=== PATIENT | male | born 1935 | race Caucasian/White ===

== ENCOUNTER → 2017-11-10 09:04 | Outpatient (CLI) | payer MEDICARE, SELFPAY ==
--- NOTE | 2017-11-10 09:24 | RAD_ITS ---
STUDY: X-RAY CHEST REASON FOR EXAM: Male, 82 years old. Pre-op chest x-ray, no shortness of breath and dyspnea. TECHNIQUE: PA and lateral views of the chest. COMPARISON: 08/15/2017 FINDINGS: Stable elevation right hemidiaphragm with compression of the basilar parenchyma, pleural thickening along the left anterior pleura/fissure. The lungs are clear and expanded. There is no demonstrated pleural abnormality. Sternal cerclage wires and vascular clips are present from a prior sternotomy and coronary artery bypass graft procedure (CABG). Normal mediastinum and alaina. Normal visualized pulmonary arteries. There is atherosclerotic calcification of the aortic arch with tortuosity. There is demineralization of the osseous structures. Normal visualized ribs, clavicles, and shoulders. There is no demonstrated abnormality of the visualized soft tissue structures of the upper abdomen. RAD/Chest PA and Lateral IMPRESSION: Postsurgical changes with stable elevation of the right hemidiaphragm and compression of basilar parenchyma. Osteoporosis, arteriosclerosis. Electronically Signed: Ashley Dalton MD at 6:57 EDT , Service support ,
[2017-11-10 10:29] LABS: International Normalized Ratio 2.2; Prothrombin Time (Protime)PT. 24.2 SECONDS (11.7-14.9)
[2017-11-10 10:57] LABS: Anion Gap 7 (5-15); BUN 30 mg/dL (7-18); BUN/Creat Ratio 17.1 RATIO (10-20); Calcium,Total 8.9 mg/dL (8.5-10.1); Chloride 103 mmol/L (98-107); Creatinine, Serum 1.75 mg/dL (0.70-1.30); EST Glomerular Filtration Rate 40 mL/min (>60); Est Glom Filt Rate - Afr Amer 48 mL/min (>60); Glucose 93 mg/dL (74-106); Potassium 3.9 mmol/L (3.5-5.1); Sodium Level 140 mmol/L (136-145)
== END ==
PROVIDERS: Family Provider Family Medicine; PCP Family Medicine; Visit Provider Nurse Practitioner Family
DX: I48.91 Unspecified atrial fibrillation (principal); I25.10 Atherosclerotic heart disease of native coronary artery without angina pectoris; R06.09 Other forms of dyspnea; I10 Essential (primary) hypertension; Z95.1 Presence of aortocoronary bypass graft
CPT/HCPCS: 36415; 71046; 80048; 85610

== ENCOUNTER → 2017-11-15 10:44 | Day surgery (SDC) | payer MEDICARE, SELFPAY ==
[2017-11-12 08:48] VITALS: BMI 34.7
--- NOTE | 2017-11-15 12:17 | PCM.OP.BLANK ---
Operative Report Date of Procedure: 11/15/17 Elective DC cardioversion. Indication: Persistent symptomatic atrial fibrillation. Procedure: Patient is an 82-year-old man with a history of symptomatic atrial fibrillation who has been anticoagulated with Xarelto for at least 4 weeks. The patient was brought to the cardiac catheterization noninvasive lab. After informed consent was obtained anterior posterior pads were applied. The patient was seen and evaluated by Dr. Allen of the critical care division. 200 J of synchronized DC cardioversion energy were applied after patient was administered 40 mg of intravenous propofol. The patient probably converted to sinus rhythm. Postoperative EKG confirmed the same. Patient tolerated the procedure well. Conclusion: Successful DC cardioversion to sinus rhythm from atrial fibrillation. Plan: Patient to continue on amiodarone, metoprolol, and Xarelto. Follow-up EKG in 1 week in my office.
--- NOTE | 2017-11-15 12:45 | PCM.OP.BLANK ---
Operative Report Date of Procedure: 11/15/17 CONSCIOUS SEDATION REPORT DATE OF SERVICE: November 15, 2017 BRIEF HISTORY OF PRESENT ILLNESS: The patient is an 82-year-old male who presented to [facility] for an elective outpatient cardioversion due to underlying atrial fibrillation. The patient's most recent surface echocardiogram revealed ejection fraction of 55%. The patient has undergone previous cardioversions, most recently as August 2016. The patient is currently anticoagulated on Xarelto. He denies a previous history of anesthetic complication and has no known drug allergies. The patient denies a history of obstructive sleep apnea or COPD. PHYSICAL EXAMINATION: VITAL SIGNS: Reviewed and were acceptable. GENERAL: The patient is a male, in no apparent distress, speaking in full sentences. HEENT: Normocephalic, atraumatic. Mucous membranes are moist and pink. Good mouth opening noted. Trachea is midline. Good neck mobility. CHEST: S1, S2 irregularly irregular. No murmurs, rubs or gallops were noted. LUNGS: Clear to auscultation bilaterally without appreciable wheezes, rales or rhonchi. ABDOMEN: Soft, nontender, nondistended. Positive bowel sounds. EXTREMITIES: There is no clubbing, cyanosis or edema. ASA Class: II DESCRIPTION OF PROCEDURE: After confirmation of informed consent, the patient's anesthesia plan was reviewed in detail. Propofol was chosen. Risks and benefits were reviewed and the patient agreed to proceed. At 1209, the patient was given 40 mg of propofol. The patient achieved an appropriate level of sedation and was given a 200 joule synchronized cardioversion by Dr. Russ at the bedside. This was successful in achieving normal sinus rhythm. The patient was monitored until 1219, at which time he reached his baseline mental status and function. The patient tolerated the procedure well. COMPLICATIONS: None ESTIMATED BLOOD LOSS: None RECOMMENDATIONS: Okay to recover in usual fashion. Code Visit 9xxxx: Other Procedure See Report
== END ==
PROVIDERS: Family Provider Family Medicine; PCP Family Medicine; Visit Provider Internal Medicine Cardiovascular Disease
DX: I48.0 Paroxysmal atrial fibrillation (principal); I25.10 Atherosclerotic heart disease of native coronary artery without angina pectoris; Z95.1 Presence of aortocoronary bypass graft; I10 Essential (primary) hypertension; R06.09 Other forms of dyspnea; E78.00 Pure hypercholesterolemia, unspecified
CPT/HCPCS: 92960; 93005; J7030

== ENCOUNTER → 2017-11-26 13:18 | Outpatient (CLI) | payer MEDICARE, SELFPAY ==
[2017-11-26 14:55] LABS: Anion Gap 10 (5-15); BUN 31 mg/dL (7-18); BUN/Creat Ratio 14.6 RATIO (10-20); Calcium,Total 8.2 mg/dL (8.5-10.1); Chloride 105 mmol/L (98-107); Creatinine, Serum 2.12 mg/dL (0.70-1.30); EST Glomerular Filtration Rate 32 mL/min (>60); Est Glom Filt Rate - Afr Amer 39 mL/min (>60); Glucose 127 mg/dL (74-106); Sodium Level 142 mmol/L (136-145)
== END ==
PROVIDERS: Family Provider Family Medicine; PCP Family Medicine; Visit Provider Internal Medicine Cardiovascular Disease
DX: I50.32 Chronic diastolic (congestive) heart failure (principal); Z79.899 Other long term (current) drug therapy
CPT/HCPCS: 36415; 80048

== ENCOUNTER → 2017-12-20 09:22 | Outpatient (CLI) | payer MEDICARE, SELFPAY ==
[2017-12-20 10:42] LABS: AST(SGOT) 20 U/L (15-37); Alanine Aminotransfer ALT/SGPT 25 U/L (16-61); Alkaline Phosphatase 109 U/L (45-117); Anion Gap 7 (5-15); BUN 28 mg/dL (7-18); BUN/Creat Ratio 13.9 RATIO (10-20); Bilirubin, Direct 0.23 mg/dL (0.00-0.30); Calcium,Total 8.7 mg/dL (8.5-10.1); Chloride 106 mmol/L (98-107); Cholesterol 130 mg/dL (200); Creatinine, Serum 2.02 mg/dL (0.70-1.30); EST Glomerular Filtration Rate 34 mL/min (>60); Est Glom Filt Rate - Afr Amer 41 mL/min (>60); Globulin 3.4 g/dL (2.2-4.2); Glucose 138 mg/dL (74-106); High Density Lipoprotein 39 mg/dL; Potassium 4.5 mmol/L (3.5-5.1); Protein, Total 7.4 g/dL (6.4-8.2); Sodium Level 140 mmol/L (136-145); Triglycerides 108 mg/dL; Very Low Density Lipoprotein 22 mg/dL (5-40)
== END ==
PROVIDERS: Nurse Practitioner Family; Family Provider Family Medicine; PCP Family Medicine; Visit Provider Internal Medicine Cardiovascular Disease
DX: I25.10 Atherosclerotic heart disease of native coronary artery without angina pectoris (principal); I48.0 Paroxysmal atrial fibrillation; I50.32 Chronic diastolic (congestive) heart failure; E78.5 Hyperlipidemia, unspecified; I10 Essential (primary) hypertension
CPT/HCPCS: 36415; 80048; 80061; 80076

== ENCOUNTER 2018-03-13 18:37 | Emergency (ER) | payer MEDICARE, SELFPAY ==
[2018-03-13 18:38] VITALS: BP 121/64; PULSE 64; RESP 17; TEMP 36.8; O2SAT 97; BMI 35.2
[2018-03-13 19:51] LABS: Absolute Lymphocyte Count 1.17 X10^3/ul (0.83-4.51); Absolute Neutrophil Count 3.9 X10^3/uL (2.0-7.7); Basophil# 0.01 X10^3/uL; Basophil% 0.2 % (0-1); Eosinophil# 0.05 X10^3/uL; Eosinophils% 0.9 % (0-5); Hematocrit 36.3 % (40-54); Lymphocyte # 1.17 X10^3/ul (4.0); Lymphocyte % 20.7 % (19-41); Mean Corp Hgb Conc 33.1 g/gl (32-36); Mean Corpuscular Hgb 31.4 pg (27.0-32.0); Mean Platelet Vol. 9.2 fl (6.2-12.0); Monocyte# 0.55 X10^3/uL; Monocyte% 9.7 % (0-10); Neutrophil # 3.86 X10^3/uL (2.7-7.7); Neutrophil % 68.3 % (47-70); POSITIVE COUNT NO; POSITIVE DIFFERENTIAL NO; POSITIVE MORPHOLOGY NO; Platelet Count 128 K/mm3 (150-450); RBC Distribution Width CV 14.4 % (11.6-14.6); RBC Distribution Width SD 49.4 fl (35.1-43.9); Red Blood Count 3.82 M/mm3 (4.6-6.2); White Blood Count 5.7 K/mm3 (4.4-11.0)
--- NOTE | 2018-03-13 20:22 | ED.VISSUMM ---
- ER Visit Summary Date of Service: 03/13/18 Chief Complaint: Right lower extremity cellulitis History of Present Illness: The patient is a 82 M currently on Xarelto and aspirin. Patient states he was working on his hands and knees 2 weeks ago. He developed swelling, bruising, and redness to the right lower extremity. He was seen at his PCPs office last week. Labs and a venous ultrasound were obtained. Patient presents with continued symptoms. He does have erythema over the anterior dominguez that is warm to the touch. Physical Examination: Vital signs unremarkable. Patient sitting upright in bed no acute distress. He is nontoxic appearing. Heart is regular. Lungs are clear. Abdomen is soft nontender. Right lower external examination was ecchymosis on the medial right thigh and on the medial lower leg. Thigh is not tense. He has 3+ edema. There is erythema and warmth over the right anterior dominguez consistent with cellulitis. 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 His hemoglobin is 12.0 and his platelet count is 128,000. This is compared to labs on March 08 at [facility] where his hemoglobin was 12.7 and his platelet count was 130,000. Emergency Department Course and Treatment: At this time patient be treated with a course of Keflex for skin infection. He has in a follow-up appointment scheduled this coming week. Treatment Plan: [] Disposition: Discharge Impression: Cellulitis right lower extremity This note was generated with [employer] dictation software. It may contain incorrect words, spelling, and punctuation that were not noted in review of the chart prior to signing ED Disposition - Plan for ED Patient: Chief Complaint: Cellulitis Referrals: Jose C Shine III, MD [Primary Care Provider] -
--- NOTE | 2018-03-13 20:24 | ED.DEP ---
ED Disposition - Plan for ED Patient: Disposition: Home or Assisted Living Chief Complaint: Cellulitis Instructions: ED Staph Infec Abx Tx Only Prescriptions: Cephalexin [Keflex] 500 mg PO Q6 #40 capsule Referrals: Jose C Shine III, MD [Primary Care Provider] - Keep George appointment
[2018-03-13 20:47] VITALS: BP 135/59; PULSE 48; RESP 16; O2SAT 97
[2018-03-13] MEDS: Cephalexin 250 MG Capsule 500 MG PO (20:50)
[2018-03-13 20:52] VITALS: BP 135/59; PULSE 48; RESP 16; O2SAT 97
== END 2018-03-13 20:53 | disposition home or self-care (01) ==
PROVIDERS: Emergency Provider Emergency Medicine; Family Provider Family Medicine; PCP Family Medicine
DX: L03.115 Cellulitis of right lower limb (principal); I10 Essential (primary) hypertension; E78.00 Pure hypercholesterolemia, unspecified; I25.10 Atherosclerotic heart disease of native coronary artery without angina pectoris; Z95.1 Presence of aortocoronary bypass graft; D69.3 Immune thrombocytopenic purpura
CPT/HCPCS: 85025; 99284; A4216

== ENCOUNTER → 2018-06-21 09:08 | Outpatient (CLI) | payer MEDICARE, SELFPAY ==
[2018-06-21 10:49] LABS: Absolute Lymphocyte Count 1.42 X10^3/ul (0.83-4.51); Absolute Neutrophil Count 4.6 X10^3/uL (2.0-7.7); Basophil# 0.01 X10^3/uL; Basophil% 0.2 % (0-1); Eosinophil# 0.07 X10^3/uL; Eosinophils% 1.1 % (0-5); Hematocrit 43.4 % (40-54); Hemoglobin 14.2 g/dl (13.0-16.5); Lymphocyte # 1.42 X10^3/ul (4.0); Lymphocyte % 21.7 % (19-41); Mean Corp Hgb Conc 32.7 g/gl (32-36); Mean Corpuscular Hgb 31.1 pg (27.0-32.0); Mean Platelet Vol. 9.8 fl (6.2-12.0); Monocyte# 0.44 X10^3/uL; Monocyte% 6.7 % (0-10); Neutrophil % 70.1 % (47-70); POSITIVE COUNT NO; POSITIVE DIFFERENTIAL NO; POSITIVE MORPHOLOGY NO; Platelet Count 141 K/mm3 (150-450); RBC Distribution Width CV 14.5 % (11.6-14.6); RBC Distribution Width SD 48.4 fl (35.1-43.9); Red Blood Count 4.57 M/mm3 (4.6-6.2); White Blood Count 6.6 K/mm3 (4.4-11.0)
[2018-06-21 11:10] LABS: AST(SGOT) 23 U/L (15-37); Alanine Aminotransfer ALT/SGPT 30 U/L (16-61); Albumin, Serum 3.9 g/dL (3.2-5.0); Alkaline Phosphatase 110 U/L (45-117); Bilirubin, Direct 0.24 mg/dL (0.00-0.30); Cholesterol 140 mg/dL (200); Globulin 3.2 g/dL (2.2-4.2); High Density Lipoprotein 38 mg/dL; Protein, Total 7.1 g/dL (6.4-8.2); Triglycerides 183 mg/dL; Very Low Density Lipoprotein 37 mg/dL (5-40)
[2018-06-21 11:17] LABS: BNP,B-Type NATRIURETIC PEPTIDE 283.2 pg/mL (0-100)
[2018-06-21 11:29] LABS: Anion Gap 7 (5-15); BUN 25 mg/dL (7-18); BUN/Creat Ratio 12.4 RATIO (10-20); Calcium,Total 8.5 mg/dL (8.5-10.1); Chloride 107 mmol/L (98-107); Creatinine, Serum 2.02 mg/dL (0.70-1.30); EST Glomerular Filtration Rate 34 mL/min (>60); Est Glom Filt Rate - Afr Amer 41 mL/min (>60); Glucose 93 mg/dL (74-106); Potassium 4.5 mmol/L (3.5-5.1); Sodium Level 142 mmol/L (136-145); T4 Free Direct 1.13 ng/dL (0.76-1.46); Thyroid Stim Hormone (TSH) 2.64 uIU/mL (0.358-3.74)
== END ==
PROVIDERS: Nurse Practitioner Family; Family Provider Family Medicine; PCP Family Medicine; Referring Provider Physician Assistant Medical; Visit Provider Physician Assistant Medical
DX: I10 Essential (primary) hypertension (principal); I25.10 Atherosclerotic heart disease of native coronary artery without angina pectoris; I48.0 Paroxysmal atrial fibrillation; R06.00 Dyspnea, unspecified; I50.32 Chronic diastolic (congestive) heart failure; E78.00 Pure hypercholesterolemia, unspecified
CPT/HCPCS: 36415; 80048; 80061; 80076; 83880; 84439; 84443; 85025

== ENCOUNTER → 2018-07-13 06:32 | Outpatient (CLI) | payer MEDICARE, SELFPAY ==
--- NOTE | 2018-07-13 06:33 | ECHOCS_ITS ---
Reason For Study: Abn. EKG Procedure This was a 2D Doppler, Color Flow transthoracic echocardiogram. Exam performed in department. Left Ventricle Normal LV size. Left ventricular systolic function is normal. The estimated ejection fraction is 65 %. Transmitral diastolic flow velocities suggest severe (stage 3) diastolic dysfunction. No regional wall motion abnormalities noted. Right Ventricle Normal RV size. Normal systolic function. Atria The left atrium is moderately enlarged. Normal right atrium. Mitral Valve Normal mitral valve. Mild (1+) eccentric mitral valve insufficiency. Tricuspid Valve Normal tricuspid valve. Mild (1+) tricuspid valve insufficiency. Pulmonary artery systolic pressure is 45 mmHg. Aortic Valve Trisinus/trileaflet aortic valve. Small strand or lambls noted on the aortic valve measuring 0.5cm. Pulmonic Valve Normal pulmonic valve. Great Vessels Normal aortic root. The pulmonary artery is normal size. Normal inferior vena cava. Pericardium/Pleural No pericardial effusion. Medication Diluted definity 2ml given slow IV push to enhance endocardial definition. MMode/2D Measurements & Calculations LVIDd: 4.4 cm IVSd: 1.1 cm Ao root diam: 3.2 cm LVIDs: 2.2 cm LVPWd: 1.1 cm RVDd: 3.7 cm FS: 49.5 % LAV(MOD-bp): 94.6 ml LA A4 area: 28.2 cm2 LA dimension(2D): 5.3 cm LAV(MOD-bp) Indexed: 43.6 ml/m2 LAV(MOD-sp2): 90.3 ml LAV(MOD-sp4): 99.8 ml RA A4 area: 15.2 cm2 Doppler Measurements & Calculations MV E max anoop: 144.5 cm/sec Lat Peak E' Anoop: 11.4 cm/sec Med Peak E' Anoop: 8.9 cm/sec MV A max anoop: 59.5 cm/sec E/E' lat: 12.6 E/E' med: 16.3 MV E/A: 2.4 Ao V2 max: 116.4 cm/sec LV V1 max: 98.6 cm/sec PA V2 max: 119.5 cm/sec Ao max P.4 mmHg LV V1 max P.9 mmHg TR max anoop: 320.3 cm/sec TR max P.0 mmHg Interpretation Summary Normal LV size. Left ventricular systolic function is normal. The estimated ejection fraction is 65 %. Transmitral diastolic flow velocities suggest severe (stage 3) diastolic dysfunction Pulmonary artery systolic pressure is 45 mmHg. Trisinus/trileaflet aortic valve. Small strand or lambls noted on the aortic valve measuring 0.5cm Contrast injection was performed. Ordering Physician: Elena Garcia/Vance Russ Referring Physician: SUHAIL Shine M.D. Performed By: Akila Garay RDCS
--- NOTE | 2018-07-13 17:26 | STRESSREP ---
Stress Test Report Pharmacologic myocardial perfusion stress test. 83-year-old man with a history of shortness of breath and coronary artery disease. Stress protocol: Resting EKG demonstrates sinus bradycardia with a rate of 54 bpm normal intervals are noted resting blood pressure is 142/74 mmHg. 0.4 mg of regadenoson was infused per usual protocol followed by rapid intravenous saline flush injection continuous EKG monitoring was performed. The maximum heart rate attained was 60 bpm which was 43% of maximum predicted heart rate the maximum workload was 1 metabolic equivalent. The patient maintained sinus rhythm throughout the recording. At rest there were no ST or T wave changes noted suggest abnormal flow reserve at peak infusion no ST or T wave changes were noted suggest abnormal flow reserve. Myocardial perfusion protocol. 14.5 mCi of technetium 99m sestamibi was injected at rest. 0.4 mg of regadenoson was infused per usual protocol. At peak infusion 44.2 mCi of technetium 99m sestamibi was injected stress images were obtained stress and rest images were reconstructed and compared in the short axis vertical long horizontal long axis. Gated images were also obtained Perfusion SPECT analysis: Review of the stress images demonstrate normal uptake of tracer noted in all areas of the myocardium. The resting images similarly demonstrate normal uptake of tracer noted in all areas of the myocardium. No obvious areas of reversibility are noted suggest ischemia. Gated SPECT analysis: The gated ejection fraction is noted to be 82%. Conclusion: Normal pharmacologic myocardial perfusion stress test. Preserved ejection fraction.
== END ==
PROVIDERS: Family Provider Family Medicine; PCP Family Medicine; Referring Provider Physician Assistant Medical; Visit Provider Physician Assistant Medical
DX: R06.09 Other forms of dyspnea (principal); R53.83 Other fatigue
CPT/HCPCS: 78452; 93017; 93306; A9500; Q9957; A4216; C8929; J2785

== ENCOUNTER → 2018-07-26 09:37 | Outpatient (CLI) | payer MEDICARE, SELFPAY ==
[2018-06-09 13:40] VITALS: BMI 35.2
[2018-07-26 11:25] LABS: AST(SGOT) 21 U/L (15-37); Alanine Aminotransfer ALT/SGPT 33 U/L (16-61); Albumin, Serum 3.8 g/dL (3.2-5.0); Alkaline Phosphatase 114 U/L (45-117); Bilirubin, Direct 0.31 mg/dL (0.00-0.30); Cholesterol 159 mg/dL (200); Globulin 3.5 g/dL (2.2-4.2); High Density Lipoprotein 39 mg/dL; Protein, Total 7.3 g/dL (6.4-8.2); Triglycerides 164 mg/dL; Very Low Density Lipoprotein 33 mg/dL (5-40)
[2018-07-26 11:26] LABS: Anion Gap 9 (5-15); BUN 44 mg/dL (7-18); BUN/Creat Ratio 17.1 RATIO (10-20); Calcium,Total 8.8 mg/dL (8.5-10.1); Chloride 102 mmol/L (98-107); Creatinine, Serum 2.57 mg/dL (0.70-1.30); EST Glomerular Filtration Rate 26 mL/min (>60); Est Glom Filt Rate - Afr Amer 31 mL/min (>60); Glucose 88 mg/dL (74-106); Potassium 4.8 mmol/L (3.5-5.1); Sodium Level 138 mmol/L (136-145)
--- OUTSIDE RECORDS SUMMARY | 2018-10-27 16:38 | XMS RPT_ITS ---
:1935 Author Organization OHIP Support Name Relationship Address Phone EMMANUELLE ALAS Unavailable [address] + [place] [address] R Unavailable Unavailable Unavailable BRANDON ALASE Unavailable [address] + [place] [address] R Unavailable Unavailable Unavailable BRANDON ALASE Unavailable [address] + [place] [address] R Unavailable Unavailable Unavailable BRANDON ALASE Unavailable [address] + [place] [address] R Unavailable Unavailable Unavailable BRANDON ALASE Unavailable [address] + [place] [address] R Unavailable Unavailable Unavailable EVETTE EMMANUELLE Unavailable [address] + [place] [address] R Unavailable Unavailable Unavailable BRANDON ALASE Unavailable [address] + [place] [address] R Unavailable Unavailable Unavailable BRANDON ALASE Unavailable [address] + [place] [address] R Unavailable Unavailable Unavailable EVETTE EMMANUELLE Unavailable [address] + [place] [address] R Unavailable Unavailable Unavailable EVETTE EMMANUELLE Unavailable [address] + [place] [address] R Unavailable Unavailable Unavailable EVETTE EMMANUELLE Unavailable [address] + [place] [address] R Unavailable Unavailable Unavailable EVETTE EMMANUELLE Unavailable [address] + [place] [address] R Unavailable Unavailable Unavailable EVETTE EMMANUELLE Unavailable [address] + [place] [address] R Unavailable Unavailable Unavailable CHENEVEY, EMMANUELLE Unavailable [address] + [place] [address] R Unavailable Unavailable Unavailable CHENEVEY, EMMANUELLE Unavailable [address] + [place] [address] R Unavailable Unavailable Unavailable CHENEVEY, EMMANUELLE Unavailable [address] + [place] [address] R Unavailable Unavailable Unavailable CHENEVEY, EMMANUELLE Unavailable [address] + [place] [address] R Unavailable Unavailable Unavailable CHENEVEY, EMMANUELLE Unavailable NA + [place], [place] R Unavailable Unavailable Unavailable CHENEVEY, EMMANUELLE Unavailable NA + [place], [place] R Unavailable Unavailable Unavailable CHENEVEY, EMMANUELLE Unavailable NA + [place], [place] R Unavailable Unavailable Unavailable CHENEVEY, EMMANUELLE Unavailable NA + [place], [place] R Unavailable Unavailable Unavailable Care Team Providers Name Role Phone PODLOGAR, PARI ([facility]) Attending Unavailable PODLOGAR, PARI ([facility]) Referring Unavailable PODLOGAR, PARI ([facility]) Referring Unavailable PODLOGAR, PARI ([facility]) Referring Unavailable PODLOGAR, PARI ([facility]) Attending Unavailable PODLOGAR, PARI ([facility]) Referring Unavailable PODLOGAR, PARI ([facility]) Attending Unavailable PODLOGAR, PARI ([facility]) Referring Unavailable PODLOGAR, PARI ([facility]) Attending Unavailable PODLOGAR, PARI ([facility]) Referring Unavailable JESÚS DANGELO ([employer]) Attending Unavailable CEBUL III, JASPREET James Referring Unavailable GRACIELA ALVAREZ ([facility]) Attending Unavailable Jeb, Vernal Attending Unavailable Jeb, Vance Referring Unavailable Cebul III, Jaspreet Primary Care Unavailable Elena Garcia Attending Unavailable Cebul III, Jaspreet Referring Unavailable Queenie Landaverde Attending Unavailable Elena Garcia Attending Unavailable Elena Garcia Referring Unavailable Cebul III, Jaspreet Primary Care Unavailable Charlie Siddiqi Attending Unavailable Cebul III, Jaspreet Referring Unavailable Nurse, Standard Attending Unavailable Cebul III, Jaspreet Referring Unavailable Cebul III, Jaspreet Primary Care Unavailable Jeb, Vernal Attending Unavailable Cebul III, Jaspreet Referring Unavailable Cebul III, Jaspreet Primary Care Unavailable Joanna Cruz Attending Unavailable Elena Garcia Attending Unavailable Cebul III, Jaspreet Referring Unavailable Elena Garcia Attending Unavailable Elena Garcia Referring Unavailable Cebul III, Jaspreet Primary Care Unavailable Roof, Charlie H Consulting Unavailable Jeb, Vance Attending Unavailable Cebul III, Jaspreet Referring Unavailable Cebul III, Jaspreet Primary Care Unavailable Elena Garcia Attending Unavailable Elena Garcia M Referring Unavailable Cebul III, Jaspreet Primary Care Unavailable Jeb, Vernal Attending Unavailable Jeb, Vernal Referring Unavailable Cebul III, Jaspreet Primary Care Unavailable Jeb, Vernal Attending Unavailable Jeb, Vance Referring Unavailable Cebul III, Jaspreet Primary Care Unavailable Roof, Charlie H Consulting Unavailable Berto Allen D.O. Attending Unavailable Jeb, Vance Referring Unavailable Cebul III, Jaspreet Primary Care Unavailable Jeb, Vance Consulting Unavailable Jeb, Vernal Attending Unavailable Jeb, Vernal Referring Unavailable Cebul III, Jaspreet Primary Care Unavailable Jeb, Vernal Consulting Unavailable Roof, Charlie H Attending Unavailable Roof, Charlie H Referring Unavailable Cebul III, Jaspreet Primary Care Unavailable Jeb, Vance Attending Unavailable Jeb, Vernal Referring Unavailable Cebul III, Jaspreet Primary Care Unavailable Jeb, Vernal Attending Unavailable Elena Garcia Referring Unavailable Jeb, Vance Attending Unavailable Cebul III, Jaspreet Referring Unavailable Cebul III, Jaspreet Primary Care Unavailable Jeb, Vance Attending Unavailable Cebul III, Jaspreet Referring Unavailable Cebul III, Jaspreet Primary Care Unavailable PROBLEMS PROBLEMS DATE TYPE CONDITION / CODE ATTENDING STATUS SOURCE Unknown I25.10 - Atherosclerotic Garcia, Active [place] 9 heart disease of twenty-nine palms Elena [facility] coronary artery without Hospital angina pectoris / Repository I25.10(ICD-10) Unknown I10 - Essential (primary) Garcia, Active Cortez 9 hypertension / Elena [facility] I10(ICD-10) Hospital Repository Unknown E78.00 - Pure Anson, Active Maria A 9 hypercholesterolemia, [facility] Community unspecified / Hospital E78.00(ICD-10) Repository Unknown N28.9 - Disorder of Jose, 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, [facility] unspecified / Hospital N28.9(ICD-10) Repository Unknown R53.83 - Other fatigue / Jose, Active Cortez 9 R53.83(ICD-10) [facility] Repository Unknown I50.32 - Chronic Jose, Active Maria A 9 diastolic (congestive) [facility] heart failure / Hospital I50.32(ICD-10) Repository Unknown I48.0 - Paroxysmal atrial Jose, Active Maria A 9 fibrillation / [facility] I48.0(ICD-10) Hospital Repository Active Unknown / UNK(Unknown) JESÚS DANGELO Active 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[employer]) [facility] Main [place] Repository Unknown R06.02 - Shortness of Jeb, Vernal Active Maria A 8 breath / R06.02(ICD-10) [facility] Hospital Repository Unknown R06.00 - Dyspnea, Jose, Active Maria A 8 unspecified / [facility] R06.00(ICD-10) Hospital Repository Active Other specified soft NA Active Yuen 8 tissue disorders / Clinic Main M79.89(ICD-10) [place] Repository Active Pain in right knee / NA Active Yuen 8 M25.561(ICD-10) Clinic Main [place] Repository Active Effusion, right knee / NA Active Yuen 8 M25.461(ICD-10) [facility] Main [place] Repository Active Hemorrhage, not elsewhere NA Active Yuen 8 classified / R58(ICD-10) [facility] [place] Repository Unknown Z95.1 - Presence of Jeb, Vance Active [place] 8 aortocoronary bypass Community graft / Z95.1(ICD-10) Hospital Repository Unknown R00.2 - Palpitations / Jeb, Vance Active [place] 8 R00.2(ICD-10) [facility] Hospital Repository Unknown Z79.899 - Other rn long term care Jeb, Vance Active Maria A 8 (current) drug therapy / [facility] Z79.899(ICD-10) Hospital Repository Unknown I48.91 - Unspecified RoofCharlie Active Maria A 8 atrial fibrillation / Community I48.91(ICD-10) Hospital Repository Unknown R06.09 - Other forms of Charlie Siddiqi Active Maria A 8 dyspnea / R06.09(ICD-10) Community Hospital Repository Unknown I48.1 - Persistent atrial Jeb, Vance Active [place] 8 fibrillation / Community I48.1(ICD-10) Hospital Repository Unknown E78.0 - Pure Jeb, Vance Active [place] 8 hypercholesterolemia / Community E78.0(ICD-10) Hospital Repository PROCEDURES PROCEDURES No Procedure Records FoundRESULTS RESULTS CNOV Observed: 08/30/2018 Status: COMPLETED Source: [place] 8:40 AM [facility] REPOSITORY Office Visit (INTMWS) ANGELICJORGE MOSS ([id number]) 1935 M Date Time Provider Department 08/30/18 8:40 AM GRACIELA ALVAREZ ([place]) INTMWS During your visit today, we recorded the following information about you: Temperature Pulse Respiration Blood pressure 97.6 degrees 63/minute 16/minute 120/70 Weight 103.9 kg Graciela Alvarez APRN.CNP 08/30/2018 9:14 AM Signed CC: Patient presents with: left lower leg pain and redness: x 2 days HPI Jorge Alas is a 83 year old male who presents today for above complaint. Symptoms started with left dominguez pain and then developed redness and swelling. Aggravated with weight bearing activities. Alleviated with elevation. Does not wake him up at night. Has taken Tylenol with minor relief. Denies injury to leg. Denies calf pain or tenderness. Denies fever, chills, nausea, body aches, fatigue. History of cellulitis in right leg in February, treated with 10 day course of Keflex. Patient states cellulitis was result of any injury, unsure how this started. REVIEW OF SYSTEMS See [facility] PAST MEDICAL HISTORY Diagnosis Date - ASHD (arteriosclerotic heart disease) 08/12/201709/1997: CABG 3 - Chronic atrial fibrillation (HCC) 08/12/201707/2016: cardioversion in 2016 EF 55% in 2017 - Coronary atherosclerosis of unspecified type of vessel, twenty-nine palms or graft - Diverticulosis of colon (without mention of hemorrhage) - Epididymal cyst 09/08/2011 - Essential hypertension, benign - History of coronary artery bypass surgery - Hydrocele 09/08/2011 - Hyperlipidemia - Hypertrophy of prostate with urinary obstruction and other lower urinary tract symptoms (LUTS) - Internal hemorrhoids without mention of complication - Paroxysmal atrial fibrillation (HCC) - 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 MEDICATIONS spironolactone (ALDACTONE) 25 mg tablet Take 25 mg by mouth once daily. amiodarone (PACERONE) 200 mg tablet Take by mouth once daily. rivaroxaban (XARELTO) 20 mg tablet Take 20 mg by mouth once daily. isosorbide mononitrate ER (IMDUR) 30 mg 24 hr tablet Take 2 tablets by mouth once daily. furosemide (LASIX) 40 mg tablet Take 1 tablet by mouth once daily. metoprolol succinate ER (TOPROL XL) 25 mg 24 hr tablet Take 1/2 tablet twice daily aspirin, enteric coated (ADULT LOW DOSE ASPIRIN) 81 mg EC tablet Take 1 tablet by mouth once daily. Lovastatin 40 mg ORAL tablet Take 1 tablet by mouth daily with dinner. CENTRUM SILVER TAB Take one(1) tablet daily. FAMILY HISTORY Problem Relation Age of Onset - Diabetes Mother - Alcohol/Drug Father - Heart Brother Social History Substance Use Topics - Smoking status: Never Smoker - Smokeless tobacco: Never Used - Alcohol use No PHYSICAL EXAM BP 120/70 Pulse 63 Temp 36.4 ?C (97.6 ?F) (Temporal Artery) Resp 16 Wt 103.9 kg (229 lb) SpO2 99% BMI 35.87 kg/m? General Appearance: well appearing, in no acute distress, alert Lungs: lungs clear to auscultation. No wheezing, rhonchi, rales Heart: RRR without murmur, gallop, or rubs. No ectopy Lower Extremities: Left lower le+ pitting edema. Left dominguez erythematous, tender and hot to the touch. No deformities, edema, skin discoloration, clubbing or cyanosis. Good capillary refill. Pulses: 2+. No cords. No calf tenderness. Modified Wells Rule for DVT (1pt each) - active cancer (tx or palliation in last 6mo)= 0 - paralysis, paresis or recent leg casting= 0 - bedridden >3D/major surgery w/in 4 wks= 0 - localized tenderness along deep venous system= 0 - entire ext swollen= 1 - unilateral calf swelling >3cm below Tibial tuberosity= 0 - unilateral pitting edema= 1 - prominent non-varicose collateral superficial veins= 0 Score -2 if alt dx as likely as DVT= -2 Score Total: 0 Pretest probabilty: High >= 3, Intermediate 1-2, Low 0 ASSESSMENT/PLAN: 1. Cellulitis of left lower extremity - ICD9: 682.6, ICD10: L03.116 Patient on Xarelto, wells score 0, low suspicious for DVT - Begin treatment with Doxycycline due to renal insufficiency - No lymphangetic streaking, this was defined for patient to watch for and to seek medical care immediately if appears - Area of cellulitis defined with pen, seek further attention if this area continues to enlarge - Follow up for recheck in three days or sooner as needed Prescription instructions reviewed with patient as applicable. Potential red flag symptoms discussed with the patient. Reviewed appropriate action plan to take if red flag symptoms occur. Patient agreeable to treatment plan. PATRICIA Faith APRN.CNP 08/30/2018 9:00 AM Signed Go to ER for worsening symptoms Referring Provider: SELF [[id number]] Allergies As of Date: 08/30/2018 (No Known Allergies) Date Reviewed: 08/30/2018 Reviewed by: Jennie [facility] Clerk - Fully Assessed Reason for Visit: left lower leg pain and redness [Other] Cmt: x 2 days Reason For Visit History Recorded Primary Visit Diagnosis:Cellulitis of left lower extremity [L03.116] Order(s):doxycycline monohydrate (MONODOX) 100 mg capsuleTake 1 capsule by mouth twice daily for 10 days.Disp: 20 capsuleRfl: 0 Prescriptions as of 08/30/2018 Sig: SPIRONOLACTONE 25 MG TABLET Take 25 mg by mouth once lisa* AMIODARONE 200 MG TABLET Take by mouth once daily. RIVAROXABAN 20 MG TABLET Take 20 mg by mouth once lisa* ISOSORBIDE MONONITRATE ER 30 * Take 2 tablets by mouth once * FUROSEMIDE 40 MG TABLET Take 1 tablet by mouth once d* METOPROLOL SUCCINATE ER 25 MG* Take 1/2 tablet twice daily ASPIRIN 81 MG TABLET,DELAYED * Take 1 tablet by mouth once d* * LOVASTATIN 40 MG TABLET Take 1 tablet by mouth daily * * CENTRUM SILVER TABLET Take one(1) tablet daily. DOXYCYCLINE MONOHYDRATE 100 M* Take 1 capsule by mouth twice* Problem List As Of Date 08/30/2018 Noted Resolved BENIGN HYPERTENSION [I10] INVALID FOR* 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 ASHD (arteriosclerotic heart disease) [I25.10] INVALID FOR* More... Chronic atrial fibrillation (HCC) [I48.2] INVALID FOR* More... Other instructions from your clinician: Go to ER for worsening symptoms Prescriptions ordered this encounter Disp Refills Start End DOXYCYCLINE MONOHYDRATE 100 MG CAPSU* 20 c* 0 08/30/2018 09/09/2018 Route: ORAL Sig: Take 1 capsule by mouth twice daily for 10 days. Medications Discontinued During This Encounter losartan (COZAAR) 100 mg tablet 30 t* 11 01/10/2015 08/30/2018 Class: Historical Med Route: ORAL Sig: Take 0.5 tablets by mouth once daily. Disc: Discontinued by another Health Care Provider benzonatate (TESSALON PERLES) 100 mg* 30 c* 0 08/04/2018 08/30/2018 Route: ORAL Sig: Take 1 capsule by mouth three times daily as needed for Cough. Disc: Course of therapy completed cephALEXin (KEFLEX) 500 mg capsule 08/30/2018 Class: Historical Med Route: ORAL Sig: Take 500 mg by mouth four times daily. Disc: Course of therapy completed amiodarone (PACERONE) 200 mg tablet 10/20/2017 08/30/2018 Class: Historical Med Sig: every day Disc: Duplicate Entry Encounter Status:Closed by GRACIELA ALVAREZ CNP on 08/30/18 PROGRESS Observed: 08/30/2018 Status: COMPLETED Source: [place] 8:22 AM [facility] REPOSITORY HNO ID: [id number] Author: Graciela Alvarez Service: (none) Author Type: Nurse Practitioner Type: Progress Notes Filed: 08/30/2018 9:14 AM Note Text: CC: Patient presents with: left lower leg pain and redness: x 2 days HPI Jorge Alas is a 83 year old male who presents today for above complaint. Symptoms started with left dominguez pain and then developed redness and swelling. Aggravated with weight bearing activities. Alleviated with elevation. Does not wake him up at night. Has taken Tylenol with minor relief. Denies injury to leg. Denies calf pain or tenderness. Denies fever, chills, nausea, body aches, fatigue. History of cellulitis in right leg in February, treated with 10 day course of Keflex. Patient states cellulitis was result of any injury, unsure how this started. REVIEW OF SYSTEMS See HPI PAST MEDICAL HISTORY Diagnosis Date - ASHD (arteriosclerotic heart disease) 08/12/201709/1997: CABG 3 - Chronic atrial fibrillation (HCC) 08/12/201707/2016: cardioversion in fall, 2016 EF 55% in 2017 - Coronary atherosclerosis of unspecified type of vessel, twenty-nine palms or graft - Diverticulosis of colon (without mention of hemorrhage) - Epididymal cyst 09/08/2011 - Essential hypertension, benign - History of coronary artery bypass surgery - Hydrocele 09/08/2011 - Hyperlipidemia - Hypertrophy of prostate with urinary obstruction and other lower urinary tract symptoms (LUTS) - Internal hemorrhoids without mention of complication - Paroxysmal atrial fibrillation (HCC) - 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 MEDICATIONS spironolactone (ALDACTONE) 25 mg tablet Take 25 mg by mouth once daily. amiodarone (PACERONE) 200 mg tablet Take by mouth once daily. rivaroxaban (XARELTO) 20 mg tablet Take 20 mg by mouth once daily. isosorbide mononitrate ER (IMDUR) 30 mg 24 hr tablet Take 2 tablets by mouth once daily. furosemide (LASIX) 40 mg tablet Take 1 tablet by mouth once daily. metoprolol succinate ER (TOPROL XL) 25 mg 24 hr tablet Take 1/2 tablet twice daily aspirin, enteric coated (ADULT LOW DOSE ASPIRIN) 81 mg EC tablet Take 1 tablet by mouth once daily. Lovastatin 40 mg ORAL tablet Take 1 tablet by mouth daily with dinner. CENTRUM SILVER TAB Take one(1) tablet daily. FAMILY HISTORY Problem Relation Age of Onset - Diabetes Mother - Alcohol/Drug Father - Heart Brother Social History Substance Use Topics - Smoking status: Never Smoker - Smokeless tobacco: Never Used - Alcohol use No PHYSICAL EXAM BP 120/70 Pulse 63 Temp 36.4 ?C (97.6 ?F) (Temporal Artery) Resp 16 Wt 103.9 kg (229 lb) SpO2 99% BMI 35.87 kg/m? General Appearance: well appearing, in no acute distress, alert Lungs: lungs clear to auscultation. No wheezing, rhonchi, rales Heart: RRR without murmur, gallop, or rubs. No ectopy Lower Extremities: Left lower le+ pitting edema. Left dominguez erythematous, tender and hot to the touch. No deformities, edema, skin discoloration, clubbing or cyanosis. Good capillary refill. Pulses: 2+. No cords. No calf tenderness. Modified Wells Rule for DVT (1pt each) - active cancer (tx or palliation in last 6mo)= 0 - paralysis, paresis or recent leg casting= 0 - bedridden >3D/major surgery w/in 4 wks= 0 - localized tenderness along deep venous system= 0 - entire ext swollen= 1 - unilateral calf swelling >3cm below Tibial tuberosity= 0 - unilateral pitting edema= 1 - prominent non-varicose collateral superficial veins= 0 Score -2 if alt dx as likely as DVT= -2 Score Total: 0 Pretest probabilty: High >= 3, Intermediate 1-2, Low 0 ASSESSMENT/PLAN: 1. Cellulitis of left lower extremity - ICD9: 682.6, ICD10: L03.116 Patient on Xarelto, wells score 0, low suspicious for DVT - Begin treatment with Doxycycline due to renal insufficiency - No lymphangetic streaking, this was defined for patient to watch for and to seek medical care immediately if appears - Area of cellulitis defined with pen, seek further attention if this area continues to enlarge - Follow up for recheck in three days or sooner as needed Prescription instructions reviewed with patient as applicable. Potential red flag symptoms discussed with the patient. Reviewed appropriate action plan to take if red flag symptoms occur. Patient agreeable to treatment plan. Graciela Alvarez APRN.TELETYPE ADJUSTER CARDIOLOGY VISIT Observed: 08/15/2018 Status: F Source: [place] RE[place] 6:44 AM [facility] [place] [facility] [address] [place] [address]. [address] [place] [address] OFFICE VISIT Date of Service: 07/27/18 MR#: [id number] Acct: [id number] Name: JORGE ALAS Rep #: [id number] : 1935 Provider: lEena Garcia Age/Sex: 83/M [place] [facility] [place] Signed HPI HPI Details: JORGE ALAS, is a 83 M who presents to the office today for a cardiovascular follow up. He has a history of coronary artery disease status post coronary artery bypass surgery left internal mammary artery to the left anterior descending artery, saphenous vein graft to circumflex artery and to the right coronary artery, paroxysmal atrial fibrillation hypertension and hyperlipidemia. Presented to us with concerns over low blood pressure readings, increased shortness of breath and fatigue. He stated at that time that his exercise tolerance was limited and he was so fatigued that he could not walk as far as what he did last year on his stress test. We did obtain a stress test which was negative for ischemia. We obtained an echocardiogram which did demonstrate normal LV function with severe diastolic dysfunction. His BNP was elevated. His medications were adjusted. Pt does not feel any better. He is fatigued. He does not feel that he has any energy to do anything. He takes frequent naps. This as been going on for several months but he feels that this is getting worse. He does not think that adjusting his diuretics has made a difference. He is not orthopneic. He is not having any chest pain/heaviness. He is having pain across his shoulders and neck. He does occasionally have palpitations. He does not have any syncope. He does not have any edema. Intake Vital Signs07/27/18 Height 5 ft 8 in 07/27/18 Weight: 226 lb 07/27/18 Body Mass Index (BMI) 34.3 07/27/18 Blood Pressure 122/68 H 07/27/18 Blood Pressure Location Lt brachial Intake Visit Reasons: 6 M FU Electrolysis Operator Required: No Accompanied by: Is patient in pain?: No Allergies No Known Allergies Allergy (Verified 07/27/18 09:54) Medications Multivit-Min/FA/Lycopene/Lut [Centrum Silver Tablet] 1 tab PO DAILY 05/24/13 [History Confirmed 06/09/18] amiodarone 200 mg tablet 200 mg PO QDAY #90 tab 10/20/17 [Rx Confirmed 06/09/18] rivaroxaban 20 mg tablet 20 mg PO DAILY #90 tab 10/20/17 [Rx Confirmed 06/09/18] isosorbide mononitrate ER 60 mg tablet,extended release 24 hr 30 mg PO QAM tab 06/09/18 [History Confirmed 06/09/18] metoprolol tartrate 25 mg tablet 12.5 mg PO BID #90 tab 06/14/18 [Rx] lovastatin 40 mg tablet 40 mg PO QHS #90 tab 07/15/18 [Rx Confirmed 07/15/18] spironolactone 25 mg tablet 25 mg PO DAILY #30 tab 07/15/18 [Rx Confirmed 07/15/18] aspirin 81 mg tablet,delayed release 81 mg PO QDAY #90 tab 07/27/18 [Rx Confirmed 07/27/18] furosemide 40 mg tablet 40 mg PO DAILY tab 07/27/18 [History Confirmed 07/27/18] PFSH Medical History Palpitations (Chronic) Hyperlipidemia (Chronic) Hypertension (Chronic) Atherosclerosis of coronary artery of twenty-nine palms heart without angina pectoris (Chronic) Secondary pulmonary arterial hypertension (Chronic) Paroxysmal atrial fibrillation (Chronic) Chronic diastolic heart failure (Chronic) Shortness of breath (Acute) Surgical History H/O coronary artery bypass surgery (Chronic 09/20/97) History of appendectomy (Chronic) History of left heart catheterization (Chronic 12/12/14) History of thymectomy (Chronic) Hx of cholecystectomy (Chronic) Family History Mother CAD (coronary artery disease) Brother CAD (coronary artery disease) Social History Smoking Status: Never smoker alcohol intake: never substance use type: does not use caffeine: Yes Type: coffee Number of servings: 1 what type of physical activity do you participate in: none seatbelt use: always do you feel safe at home: Yes ROS Const Const: Positive for weakness and fatigue; negative for fever(s) or headache(s) Eyes Eyes: Negative for blind spots, loss of peripheral vision or transient loss of vision ENT ENT: Negative for headache(s) Cardio Chest Pain: No Palpitations: No Edema: None Muscle aches with walking: None Resp Respiratory: Positive for SOB with activity; negative for SOB at rest, SOB orthopnea\SOB lying down or Cough GI GI: Negative nausea, vomiting, heartburn or vomiting blood/hematemesis : Negative for hematuria Musc Musc: Negative for muscle aches/ myalgia Neuro Neuro: Positive for weakness; negative for headache(s) Efrain Hematologic/Lymphatic: Negative for easy bleeding Endo Endo: Positive for fatigue Cardiology Exam Const Appearance: cooperative, healthy appearing, well developed, well groomed and no acute distress Nutritional Appearance: well nourished and average body habitus Orientation: alert, awake and oriented x3 Head Head: normal to inspection, normocephalic and atraumatic Ears: hearing grossly normal bilaterally and external ears normal Nose: external nose normal, nasal mucous membranes and turbinates normal, nares normal, septum normal, no nasal discharge Face and Sinus: face symmetric Mouth: oral mucosae normal, tongue normal, oropharynx normal and moist mucous membranes Teeth and gingiva: dentition normal Throat: posterior oropharynx normal, tonsils normal and uvula midline Eyes General: appearance normal, both eyes and all related structures Eyelids: eyelids normal Conjunctivae: conjunctivae normal Pupils: PERRL, normal by confrontation and accommodation normal EOM: EOM intact bilaterally Neck Neck: normal visual inspection, trachea midline and no JVD JVD: +5 Carotids: normal carotid upstroke and bounding pulses Chest Chest inspection: normal inspection of the chest, symmetric chest movement and normal respiratory effort Auscultation: Bilateral: Clear to Auscultation Cardio Palpation: normal PMI Rate: regular rate Rhythm: regular rhythm Heart sounds: S1 normal, S2 normal and normal, physiologic split S2; negative rub, gallop or murmur GI GI: normal to inspection, soft, no hepatosplenomegaly and bowel sounds present Neuro General: alert, awake, oriented x3, no focal sensory deficit, gait normal and moves all extremities Skin Skin: no rashes or lesions noted Extremities Pulses: Normal: Right Femoral Pulse, Left Femoral Pulse, Right Dorsalis Pedis Pulse, Left Dorsalis Pedis Pulse, Right Posterior Tibial Pulse, Left Posterior Tibial Pulse, Right Radial Pulse, Left Radial Pulse Lower Extremity Edema: None: Bilateral Musculoskel Musculoskeletal: No joint tenderness Psych Psychological: normal affect Assessment AND Plan 1. Essential hypertension I10 Plan - DALTON Del Rosario Blood pressure readings have been on the lower side since adjusting his diuretics. We will have him stop his losartan and his evening dose of furosemide. He will continue with his low-dose metoprolol, isosorbide, furosemide in a.m. and Spironolactone Orders Orders: 2. Pure hypercholesterolemia E78.00 Plan - DALTON Del Rosario Patient will continue with moderate intensity statin. Recent lipid profile demonstrates total cholesterol 159, HDL 39, LDL 87. Will not make any adjustments. Orders Orders: 3. 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 He has not had any angina type symptoms Orders Orders: 4. Paroxysmal atrial fibrillation I48.0 Plan - DALTON Del Rosario Patient has had occasional irregular heartbeats that were noted on his blood pressure machine. He is unaware of these. He will continue with his low-dose amiodarone low-dose metoprolol and his factor Xa inhibitor. We will need to continue to monitor his thyroid and hepatic panels in addition to pulmonary function test and chest x-rays Orders Orders: 5. Chronic diastolic heart failure I50.32 Plan - DALTON Del Rosario Patient did have an elevated BNP 2 weeks ago. We did adjust his diuretics. Because this is affecting his kidney function will continue to decrease some of his medications. We did decrease his furosemide. He will continue with his spironolactone. Orders Orders: 6. Renal insufficiency N28.9 Plan - DALTON Del Rosario We have decreased his Lasix, he will continue with his spironolactone. We did stop his losartan. Will obtain a BMP and Patient Instructions - DALTON Del Rosario Stop you losartan, decrease your furosemide to once a day Get your blood work done in 2 weeks. It is non fasting Orders Orders: 7. Fatigue, unspecified type R53.83 Plan - DALTON Del Rosario With patient's continued complaints of her fatigue. Did review all testing that was done with patient. He did have a CBC, BMP. His thyroid studies were also done. He did have an echocardiogram and a stress test. Will obtain a vitamin D level. Also did strongly encourage him to discuss his fatigue with his primary care doctor as his fatigue is likely not cardiac. Orders Orders: Plan Detail Other Medications New: Discontinued: Additional Comments - DALTON Del Rosario The above patient was discussed with Dr. Russ, he agrees with plan of care. Thank you for allowing us to participate in patient's plan of care, if you have any questions please do not hesitate to call. This note was generated using a voice recognition system and there may be incorrect words, spelling or punctuation errors that were not noted when reviewing the office note prior to saving. Follow Up 2 Months (HIDE SPREADER) Coding Level of Care Code Off vis,est,level 4 Diagnoses Essential hypertension I10 Hypertension type: essential hypertension Pure hypercholesterolemia E78.00 Hyperlipidemia type: pure hypercholesterolemia 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 I25.10 Coronary Disease-Associated Artery/Lesion type: twenty-nine palms artery Paroxysmal atrial fibrillation I48.0 Chronic diastolic heart failure I50.32 Renal insufficiency N28.9 Fatigue, unspecified type R53.83 Fatigue type: unspecified Coding Level of Care Code Off vis,est,level 4 Diagnoses Essential hypertension I10 Hypertension type: essential hypertension Pure hypercholesterolemia E78.00 Hyperlipidemia type: pure hypercholesterolemia 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 I25.10 Coronary Disease-Associated Artery/Lesion type: twenty-nine [place] artery Paroxysmal atrial fibrillation I48.0 Chronic diastolic heart failure I50.32 Renal insufficiency N28.9 Fatigue, unspecified type R53.83 Fatigue type: unspecified 08/04/18 1748 <Electronically signed by Elena HOFFMAN> Date Elena HOFFMAN 08/15/18 0644<Electronically signed by Vance Russ MD> Cosigner Signature: Date (if applicable) Vance Russ MD CC: Jaspreet Shine III, MD BASIC METABOLIC Collected: 08/11/2018 Status: F Source: [place] A PROFILE (BMP) 10:13 AM [facility] [place] CODE TESTS RESULT OUT OF RANGE REFERENCE UNITS LAB L501.0100 74-106 mg/dL Normal GLU 91 Result Comment: Please note revised GLUCOSE reference range effective 2017. LAB L501.1000 7-18 mg/dL High BUN 30 LAB L501.1100 0.70-1.30 mg/dL High CREAT,SERUM 1.97 Result Comment: The validity of the calculated GFR AND GFRAA in patients over 70 years has not been determined. Clinical correlation is essential. LAB L501.1110 >60 mL/min Low EST GFR 35 Result Comment: Non- GFR Calc LAB L501.1115 >60 mL/min Low EST GFR - AA 42 Result Comment: GFR Calc LAB L501.1300 10-20 RATIO Normal BUN/CRE 15.2 LAB L501.2200 8.5-10.1 mg/dL CA Normal 8.5 LAB L501.5300 136-145 mmol/L NA Normal 138 LAB L501.5600 3.5-5.1 mmol/L K Normal 4.6 LAB L501.5900 98-107 mmol/L CL Normal 105 LAB L501.6100 21.0-32.0 mmol/L Normal CO2 25.0 LAB L501.6200 5-15 Normal GAP 8 Performed By: #### L500.2500 #### [facility] [address] [place], [address] VITAMIN D 1,25-DIHYDROXY Collected: 08/11/2018 Status: F Source: [place] 10:13 AM [facility] [place] CODE TESTS RESULT OUT OF RANGE REFERENCE UNITS LAB L3300.0960 19.9-79.3 pg/mL Normal VITD 1,25 33.3 [id number] Result Comment: Performed at: [facility] [id number] Automotive Manufacturer: Anthony Rogers MD, Phone: [phone] Performed By: #### L3300.0960 #### [facility] (refer to report for specific site) refer to report for address and phone number PROGRESS Observed: 08/04/2018 Status: COMPLETED Source: [place] 10:16 AM [facility] REPOSITORY HNO ID: [id number] Author: Jerod Henderson Apn Student Service: (none) Author Type: (none) Type: Progress Notes Filed: 08/04/2018 12:24 PM Note Text: Chief Complaint Patient presents with: Pain (foot): bottom of left foot. patient states has a little bump under little toe left foot HPI Jorge Alas is a 83 year old male who presents here today for Above Complaints. Patient states pain under left 5th toe from bump has increased over the past few days and increases to a 10/10 when pressure is placed to site with walking or palpation. He states it feels as is something is trying to get out of his foot and describes the pain as sharp. Denies use of OTC medication for pain. Denies trauma or injury to site, fever, or erythema to site. States is the pain in his left foot affects is gait at times depending on the surface he is walking on with pain being worse on harder surfaces. States he has three pairs of the same New Balance sneakers that he wears interchangeably and has never had a problem with the sneakers until recently with the development of the bump on the bottom of his left foot by his little toe. Has used corn pads only without benefit. Patient with complaints of cough for the past 2-3 weeks after recent development of cold-like symptoms. States cold-symptoms have improved except for lingering cough with production of white sputum. Denies pain, congestion, sinus pain, bilateral ear pain, fever, and any new shortness of breath. Denies use of OTC cough or cold medication to help relieve his cough. Denies orthopnea. States fits of coughing with talking and intermittently throughout the day, at hs at times as well. Not treated. Past medical history, appointments, medications, allergies reviewed. Previous Medical History PAST MEDICAL HISTORY Diagnosis Date - ASHD (arteriosclerotic heart disease) 08/12/201709/1997: CABG 3 - Chronic atrial fibrillation (HCC) 08/12/201707/2016: cardioversion in 2016 EF 55% in 2017 - Coronary atherosclerosis of unspecified type of vessel, twenty-nine palms or graft - Diverticulosis of colon (without mention of hemorrhage) - Epididymal cyst 09/08/2011 - Essential hypertension, benign - History of coronary artery bypass surgery - Hydrocele 09/08/2011 - Hyperlipidemia - Hypertrophy of prostate with urinary obstruction and other lower urinary tract symptoms (LUTS) - Internal hemorrhoids without mention of complication - Paroxysmal atrial fibrillation (HCC) - S/P CABG x 3 08/12/201709/1997 - Squamous cell carcinoma of skin of hand 01/11/2015 - Trochanteric bursitis of left hip 01/29/2011 Previous Surgical History PAST SURGICAL HISTORY Procedure Laterality Date - APPENDECTOMY - COLONOSCOP W/ OR W/O [facility] SPEC 04/02/09 - HEART CATHETERIZATION 12/2014 See [facility] documents - HEMORRHOIDECT INTER/EXTER SIMP - LAPAROSCOPIC CHOLEYCYSTECTOMY 2003 Cholecystectomy, lap - PAST SURGICAL HISTORY OF 09/1997 coronary bypass - SIGMOIDOSCOPY FLEX DIAG Sigmoidoscopy, flexible Family History FAMILY HISTORY Problem Relation Age of Onset - Diabetes Mother - Alcohol/Drug Father - Heart Brother Patient Allergies ALLERGIES No Known Allergies Current Medications Current Outpatient Prescriptions on File Prior to Visit: amiodarone (PACERONE) 200 mg tablet Take by mouth once daily. aspirin, enteric coated (ADULT LOW DOSE ASPIRIN) 81 mg EC tablet Take 1 tablet by mouth once daily. CENTRUM SILVER TAB Take one(1) tablet daily. furosemide (LASIX) 40 mg tablet Take 1 tablet by mouth once daily. Lovastatin 40 mg ORAL tablet Take 1 tablet by mouth daily with dinner. metoprolol succinate ER (TOPROL XL) 25 mg 24 hr tablet Take 1/2 tablet twice daily rivaroxaban (XARELTO) 20 mg tablet Take 20 mg by mouth once daily. amiodarone (PACERONE) 200 mg tablet every day cephALEXin (KEFLEX) 500 mg capsule Take 500 mg by mouth four times daily. isosorbide mononitrate ER (IMDUR) 30 mg 24 hr tablet Take 2 tablets by mouth once daily. losartan (COZAAR) 100 mg tablet Take 0.5 tablets by mouth once daily. No current facility-administered medications on file prior to visit. Social History Social History Marital status: Spouse name: Emmanuelle Years of education: Number of children: 3 Occupational History Occupation Employer Comment [employer]* Social History Main Topics Smoking status: Never Smoker Smokeless tobacco: Never Used Alcohol use: No Drug use: No Other Topics Concern Caffeine Concern Yes Comment:1 cup coffee/day Sleep Concern Yes Comment:frequent urination - intermittent sleep Stress Concern No Weight Concern No Special Diet No Exercise No Seat Belt Yes Review of Symptoms REVIEW OF SYSTEMS PAIN ASSESSMENT: CURRENTLY HAVING PAIN; LOCATION/DISTRIBUTION: Under left 5th toe on plantar portion of foot PAIN SCALE: 10 on 0-10 scale per patient when pressure applied to site. Rates 0/10 with rest. PAIN CHARACTER: sharp AGGRAVATING FACTORS: activity, standing and walking ALLEVIATING FACTORS: sitting GENERAL: No weight loss, malaise or fevers HEENT: Negative for frequent or significant headaches, No changes in hearing or vision, no nose bleeds or other nasal problems NECK: Negative for lumps, goiter, pain and significant neck swelling RESPIRATORY: Negative for hemoptysis, wheezing, COPD, dyspnea or shortness of breath. Positive for productive cough with white sputum CARDIOVASCULAR: Negative for chest pain, hypertension, CHF or palpitations. Positive for bilateral lower extremity edema SKIN: Positive for See HPI EXAM: BP 130/76 (BP Site: Left Arm, BP Position: Sitting, BP Cuff Size: Regular Adult) Pulse 64 Temp 36.5 ?C (97.7 ?F) (Tympanic) Resp 18 Wt 103.9 kg (229 lb) BMI 35.87 kg/m? General Appearance: Well appearing, alert, in no acute distress, well-hydrated, well nourished. Positive abnormal gait with noted limping when pressure applied to LLE. Skin: Skin color, texture, turgor normal, no suspicious rashes or lesions, Positives: Clavus under left 5th toe measuring 1 cm x 0.5 cm, central firm nodule noted and darkened central point. Negative for abnormalities under right foot. Tender with palpation Ears: External ears normal, canals clear. Nose/Sinuses: Nares normal, septum midline, mucosa normal, no drainage or sinus tenderness. Oropharynx: Lips, mucosa, and tongue normal, teeth and gums normal, oropharynx normal. Neck: Supple, no adenopathy; thyroid symmetric, normal size, no bruits. Lungs: lungs clear to auscultation. No wheezing, rhonchi, rales. Positive for non-productive cough. Heart: RRR without murmur, gallop, or rubs. No ectopy. Health Maintenance List LDL CHOLESTEROL due on 06/21/2019 DIABETES SCREEN due on 12/20/2020 DTAP,TDAP,TD(3 - Td) due on 01/07/2021 ADULT PREVNAR-13 Completed INFLUENZA Completed PNEUMOVAX AGE 65 AND OVER WITH 5YR LOOKBACK Completed ASSESSMENT/PLAN: 1. [place] - ICD9: 700, ICD10: L84 (primary diagnosis) -Referral to Podiatry - CONSULT TO PODIATRY 2. Viral URI with cough - ICD9: 465.9, ICD10: J06.9, B97.89 - Discussed viral etiology and rationale for treatment. - Symptomatic treatment with prn analgesia - Supportive care with fluids and rest - BENZONATATE 100 MG CAPSULE for cough - Follow up if any development of fevers, shortness of breath, or worsening of symptoms. Jesús Dangelo, MSN EMBOSSING TOOLSETTER.TELETYPE ADJUSTER CNOV Observed: 08/04/2018 Status: COMPLETED Source: [place] 9:40 AM [facility] REPOSITORY [facility] JORGE ALAS ([id number]) 1935 M Date Time Provider Department 08/04/18 9:40 AM JESÚS DANGELO (WOL[facility]) LETI During your visit today, we recorded the following information about you: Temperature Pulse Respiration Blood pressure 97.7 degrees 64/minute 18/minute 130/76 Weight 103.9 kg Jerod Mccannn Student 08/04/2018 12:14 PM Signed Chief Complaint Patient presents with: Pain (foot): bottom of left foot. patient states has a little bump under little toe left foot HPI Jorge Alas is a 83 year old male who presents here today for Above Complaints. Patient states pain under left 5th toe from bump has increased over the past few days and increases to a 10/10 when pressure is placed to site with walking or palpation. He states it feels as is something is trying to get out of his foot and describes the pain as sharp. Denies use of OTC medication for pain. Denies trauma or injury to site, fever, or erythema to site. States is the pain in his left foot affects is gait at times depending on the surface he is walking on with pain being worse on harder surfaces. States he has three pairs of the same New Balance sneakers that he wears interchangeably and has never had a problem with the sneakers until recently with the development of the bump on the bottom of his left foot by his little toe. Has used corn pads only without benefit. Patient with complaints of cough for the past 2-3 weeks after recent development of cold-like symptoms. States cold-symptoms have improved except for lingering cough with production of white sputum. Denies pain, congestion, sinus pain, bilateral ear pain, fever, and any new shortness of breath. Denies use of OTC cough or cold medication to help relieve his cough. Denies orthopnea. States fits of coughing with talking and intermittently throughout the day, at hs at times as well. Not treated. Past medical history, appointments, medications, allergies reviewed. Previous Medical History PAST MEDICAL HISTORY Diagnosis Date - ASHD (arteriosclerotic heart disease) 08/12/201709/1997: CABG 3 - Chronic atrial fibrillation (HCC) 08/12/201707/2016: cardioversion in 2016 EF 55% in 2017 - Coronary atherosclerosis of unspecified type of vessel, twenty-nine palms or graft - Diverticulosis of colon (without mention of hemorrhage) - Epididymal cyst 09/08/2011 - Essential hypertension, benign - History of coronary artery bypass surgery - Hydrocele 09/08/2011 - Hyperlipidemia - Hypertrophy of prostate with urinary obstruction and other lower urinary tract symptoms (LUTS) - Internal hemorrhoids without mention of complication - Paroxysmal atrial fibrillation (HCC) - S/P CABG x 3 08/12/201709/1997 - Squamous cell carcinoma of skin of hand 01/11/2015 - Trochanteric bursitis of left hip 01/29/2011 Previous Surgical History PAST SURGICAL HISTORY Procedure Laterality Date - APPENDECTOMY - COLONOSCOP W/ OR W/O [facility] SPEC 04/02/09 - HEART CATHETERIZATION 12/2014 See [facility] documents - HEMORRHOIDECT INTER/EXTER SIMP - LAPAROSCOPIC CHOLEYCYSTECTOMY 2003 Cholecystectomy, lap - PAST SURGICAL HISTORY OF 09/1997 coronary bypass - SIGMOIDOSCOPY FLEX DIAG Sigmoidoscopy, flexible Family History FAMILY HISTORY Problem Relation Age of Onset - Diabetes Mother - Alcohol/Drug Father - Heart Brother Patient Allergies ALLERGIES No Known Allergies Current Medications Current Outpatient Prescriptions on File Prior to Visit: amiodarone (PACERONE) 200 mg tablet Take by mouth once daily. aspirin, enteric coated (ADULT LOW DOSE ASPIRIN) 81 mg EC tablet Take 1 tablet by mouth once daily. CENTRUM SILVER TAB Take one(1) tablet daily. furosemide (LASIX) 40 mg tablet Take 1 tablet by mouth once daily. Lovastatin 40 mg ORAL tablet Take 1 tablet by mouth daily with dinner. metoprolol succinate ER (TOPROL XL) 25 mg 24 hr tablet Take 1/2 tablet twice daily rivaroxaban (XARELTO) 20 mg tablet Take 20 mg by mouth once daily. amiodarone (PACERONE) 200 mg tablet every day cephALEXin (KEFLEX) 500 mg capsule Take 500 mg by mouth four times daily. isosorbide mononitrate ER (IMDUR) 30 mg 24 hr tablet Take 2 tablets by mouth once daily. losartan (COZAAR) 100 mg tablet Take 0.5 tablets by mouth once daily. No current facility-administered medications on file prior to visit. Social History Social History Marital status: Spouse name: Emmanuelle Years of education: Number of children: 3 Occupational History Occupation Employer Comment [employer]* Social History Main Topics Smoking status: Never Smoker Smokeless tobacco: Never Used Alcohol use: No Drug use: No Other Topics Concern Caffeine Concern Yes Comment:1 cup coffee/day Sleep Concern Yes Comment:frequent urination - intermittent sleep Stress Concern No Weight Concern No Special Diet No Exercise No Seat Belt Yes Review of Symptoms REVIEW OF SYSTEMS PAIN ASSESSMENT: CURRENTLY HAVING PAIN; LOCATION/DISTRIBUTION: Under left 5th toe on plantar portion of foot PAIN SCALE: 10 on 0-10 scale per patient when pressure applied to site. Rates 0/10 with rest. PAIN CHARACTER: sharp AGGRAVATING FACTORS: activity, standing and walking ALLEVIATING FACTORS: sitting GENERAL: No weight loss, malaise or fevers HEENT: Negative for frequent or significant headaches, No changes in hearing or vision, no nose bleeds or other nasal problems NECK: Negative for lumps, goiter, pain and significant neck swelling RESPIRATORY: Negative for hemoptysis, wheezing, COPD, dyspnea or shortness of breath. Positive for productive cough with white sputum CARDIOVASCULAR: Negative for chest pain, hypertension, CHF or palpitations. Positive for bilateral lower extremity edema SKIN: Positive for See HPI EXAM: BP 130/76 (BP Site: Left Arm, BP Position: Sitting, BP Cuff Size: Regular Adult) Pulse 64 Temp 36.5 ?C (97.7 ?F) (Tympanic) Resp 18 Wt 103.9 kg (229 lb) BMI 35.87 kg/m? General Appearance: Well appearing, alert, in no acute distress, well-hydrated, well nourished. Positive abnormal gait with noted limping when pressure applied to LLE. Skin: Skin color, texture, turgor normal, no suspicious rashes or lesions, Positives: Clavus under left 5th toe measuring 1 cm x 0.5 cm, central firm nodule noted and darkened central point. Negative for abnormalities under right foot. Tender with palpation Ears: External ears normal, canals clear. Nose/Sinuses: Nares normal, septum midline, mucosa normal, no drainage or sinus tenderness. Oropharynx: Lips, mucosa, and tongue normal, teeth and gums normal, oropharynx normal. Neck: Supple, no adenopathy; thyroid symmetric, normal size, no bruits. Lungs: lungs clear to auscultation. No wheezing, rhonchi, rales. Positive for non-productive cough. Heart: RRR without murmur, gallop, or rubs. No ectopy. Health Maintenance List LDL CHOLESTEROL due on 06/21/2019 DIABETES SCREEN due on 12/20/2020 DTAP,TDAP,TD(3 - Td) due on 01/07/2021 ADULT PREVNAR-13 Completed INFLUENZA Completed PNEUMOVAX AGE 65 AND OVER WITH 5YR LOOKBACK Completed ASSESSMENT/PLAN: 1. [place] - ICD9: 700, ICD10: L84 (primary diagnosis) -Referral to Podiatry - CONSULT TO PODIATRY 2. Viral URI with cough - ICD9: 465.9, ICD10: J06.9, B97.89 - Discussed viral etiology and rationale for treatment. - Symptomatic treatment with prn analgesia - Supportive care with fluids and rest - BENZONATATE 100 MG CAPSULE for cough - Follow up if any development of fevers, shortness of breath, or worsening of symptoms. Jesús Dangelo, MSN EMBOSSING TOOLSETTER.TELETYPE ADJUSTER Referring Provider: JASPREET SHINE III [[id number]] Allergies As of Date: 08/04/2018 (No Known Allergies) Date Reviewed: 08/04/2018 Reviewed by: Virginia Cisse LPN - Fully Assessed Reason for Visit: Pain (foot) [760] Cmt: bottom of left foot. patient states has a little bump under little toe left foot Primary Visit Diagnosis:[place] [L84] Other Visit Diagnosis:Viral URI with cough [J06.9, B97.89] Order(s):CONSULT TO PODIATRY [9034] Order #: [id number]: 1 benzonatate (TESSALON PERLES) 100 mg capsuleTake 1 capsule by mouth three times daily as needed for Cough.Disp: 30 capsuleRfl: 0 Prescriptions as of 08/04/2018 Sig: AMIODARONE 200 MG TABLET Take by mouth once daily. ASPIRIN 81 MG TABLET,DELAYED * Take 1 tablet by mouth once d* * CENTRUM SILVER TABLET Take one(1) tablet daily. FUROSEMIDE 40 MG TABLET Take 1 tablet by mouth once d* * LOVASTATIN 40 MG TABLET Take 1 tablet by mouth daily * METOPROLOL SUCCINATE ER 25 MG* Take 1/2 tablet twice daily RIVAROXABAN 20 MG TABLET Take 20 mg by mouth once lisa* SPIRONOLACTONE 25 MG TABLET Take 25 mg by mouth once lisa* AMIODARONE 200 MG TABLET every day BENZONATATE 100 MG CAPSULE Take 1 capsule by mouth three* CEPHALEXIN 500 MG CAPSULE Take 500 mg by mouth four yaneli* ISOSORBIDE MONONITRATE ER 30 * Take 2 tablets by mouth once * LOSARTAN 100 MG TABLET Take 0.5 tablets by mouth onc* Problem List As Of Date 08/04/2018 Noted Resolved BENIGN HYPERTENSION [I10] INVALID FOR* 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 ASHD (arteriosclerotic heart disease) [I25.10] INVALID FOR* More... Chronic atrial fibrillation (HCC) [I48.2] INVALID FOR* More... Prescriptions ordered this encounter Disp Refills Start End BENZONATATE 100 MG CAPSULE 30 c* 0 08/04/2018 Route: ORAL Sig: Take 1 capsule by mouth three times daily as needed for Cough. Encounter Status:Closed by JESÚS DANGELO CNP on 08/04/18 LIVER PROFILE Collected: 07/26/2018 Status: F Source: [place] 9:47 AM [facility] [place] CODE TESTS RESULT OUT OF RANGE REFERENCE UNITS LAB L501.1500 6.4-8.2 g/dL Normal T PROT 7.3 LAB L501.1800 3.2-5.0 g/dL Normal ALB 3.8 LAB L501.1950 2.2-4.2 g/dL Normal GLOB 3.5 LAB L501.4100 15-37 U/L Normal AST 21 LAB L501.4305 45-117 U/L Normal ALK P 114 LAB L501.4405 16-61 U/L Normal ALT 33 LAB L501.4600 0.20-1.00 mg/dL High T BILI 1.20 LAB L501.4700 0.00-0.30 mg/dL High D BILI 0.31 Performed By: #### L500.3400, L500.4100 #### [facility] [address], [place], [address] LIPID PROFILE Collected: 07/26/2018 Status: F Source: [place] 9:47 AM [facility] [place] TYPE CODE TESTS RESULT OUT OF RANGE REFERENCE UNITS LAB L501.4900 200 mg/dL Normal CHOL 159 Result Comment: <200 mg/dL Desirable 200-240 mg/dL Borderline >240 mg/dL High Risk LAB L501.5000 mg/dL Normal TRIG 164 Result Comment: The drugs N-Acetylcysteine and Metamizole may falsely depress this assay. Serum Triglycerides Reference Interval Normal <150 mg/dL Borderline high 150 - 199 mg/dL High 200 - 499 mg/dL Very High > or = 500 mg/dL LAB L501.6400 mg/dL Low HDL 39 Result Comment: The drugs N-Acetylcysteine and Metamizole may falsely depress this assay. Reference Range HDL <40 mg/dL Low HDL Cholesterol HDL >or= 60 mg/dL High HDL Cholesterol LAB L501.6500 0-130 mg/dL Normal LDL 87 LAB L501.6600 5-40 mg/dL Normal VLDL 33 Performed By: #### L500.3400, L500.4100 #### [facility] [address] [place], [place], [id number] BASIC METABOLIC Collected: 07/26/2018 Status: F Source: [place] PROFILE (BMP) 9:47 AM [facility] [place] TYPE CODE TESTS RESULT OUT OF RANGE REFERENCE UNITS LAB L501.0100 74-106 mg/dL Normal GLU 88 Result Comment: Please note revised GLUCOSE reference range effective 2017. LAB L501.1000 7-18 mg/dL High BUN 44 LAB L501.1100 0.70-1.30 mg/dL High CREAT,SERUM 2.57 Result Comment: The validity of the calculated GFR AND GFRAA in patients over 70 years has not been determined. Clinical correlation is essential. LAB L501.1110 >60 mL/min Low EST GFR 26 Result Comment: Non- GFR Calc LAB L501.1115 >60 mL/min Low EST GFR - AA 31 Result Comment: GFR Calc LAB L501.1300 10-20 RATIO Normal BUN/CRE 17.1 LAB L501.2200 8.5-10.1 mg/dL CA Normal 8.8 LAB L501.5300 136-145 mmol/L NA Normal 138 LAB L501.5600 3.5-5.1 mmol/L K Normal 4.8 LAB L501.5900 98-107 mmol/L CL Normal 102 LAB L501.6100 21.0-32.0 mmol/L Normal CO2 27.0 LAB L501.6200 5-15 Normal GAP 9 Performed By: #### L500.2500 #### [facility] [address] [place], [address] CNPN Observed: 07/26/2018 Status: COMPLETED Source: [place] 12:00 AM [facility] REPOSITORY Telephone (FAMPWS) JORGE ALAS ([id number]) 1935 M Date Time Provider Department 07/26/18 [facility]AS[facility]INE III [facility] During your visit today, we recorded the following information about you: Allergies As of Date: 07/26/2018 (No Known Allergies) Date Reviewed: 04/05/2018 Reviewed by: Ortega Knowles Cma - Fully Assessed Reason for Visit: Results [95] Order(s):LIPID PANEL (EXTERNAL) [7502241] Order #: [id number] HEPATIC FUNCTION PANEL - EXTERNAL [6240795] Order #: [id number] BMP - EXTERNAL [3985790] Order #: [id number] Prescriptions as of 07/26/2018 Sig: AMIODARONE 200 MG TABLET Take by mouth once daily. AMIODARONE 200 MG TABLET every day ASPIRIN 81 MG TABLET,DELAYED * Take 1 tablet by mouth once d* * CENTRUM SILVER TABLET Take one(1) tablet daily. 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 ASHD (arteriosclerotic heart disease) [I25.10] INVALID FOR* More... Chronic atrial fibrillation (HCC) [I48.2] INVALID FOR* More... Encounter Status:Closed by ANGEL ALVAREZ on 07/26/18 STRESS REPORT Observed: 07/13/2018 Status: F Source: [place] 5:28 PM [facility] [place] [facility] Cardiovascular Services [address] [place] [address] MR#: [id number] Acct: [id number] Name: JORGE ALAS Rep #: [id number] : 1935 83 From: Vance Russ MD Primary Care: Jaspreet Shine III, MD Status: REG CLI Ordering Dr: Sex: M C Stress Test Report Pharmacologic myocardial perfusion stress test. 83-year-old man with a history of shortness of breath and coronary artery disease. Stress protocol: Resting EKG demonstrates sinus bradycardia with a rate of 54 bpm normal intervals are noted resting blood pressure is 142/74 mmHg. 0.4 mg of regadenoson was infused per usual protocol followed by rapid intravenous saline flush injection continuous EKG monitoring was performed. The maximum heart rate attained was 60 bpm which was 43% of maximum predicted heart rate the maximum workload was 1 metabolic equivalent. The patient maintained sinus rhythm throughout the recording. At rest there were no ST or T wave changes noted suggest abnormal flow reserve at peak infusion no ST or T wave changes were noted suggest abnormal flow reserve. Myocardial perfusion protocol. 14.5 mCi of technetium 99m sestamibi was injected at rest. 0.4 mg of regadenoson was infused per usual protocol. At peak infusion 44.2 mCi of technetium 99m sestamibi was injected stress images were obtained stress and rest images were reconstructed and compared in the short axis vertical long horizontal long axis. Gated images were also obtained Perfusion SPECT analysis: Review of the stress images demonstrate normal uptake of tracer noted in all areas of the myocardium. The resting images similarly demonstrate normal uptake of tracer noted in all areas of the myocardium. No obvious areas of reversibility are noted suggest ischemia. Gated SPECT analysis: The gated ejection fraction is noted to be 82%. Conclusion: Normal pharmacologic myocardial perfusion stress test. Preserved ejection fraction. 07/13/181727 <Electronically signed by Vance Russ MD> Date Vance Rsus MD CC: Jaspreet Shine III, MD; Elena Garcia Date Dictated: 07/13/181725 Date Transcribed: 07/13/181725 Kiln Car Unloader: CO Signed ECHO, COMPLETE W/ Observed: 07/13/2018 Status: F Source: [place] CONTRAST 5:11 PM [facility] [place] [facility] Cardiovascular Services [facility] [address] [place] [address] Echo Complete W/ Contrast 07/13/18 0743 MR#: [id number] Acct: [id number] Name: ANGELICAJAYJORGE Angela Rep #: [id number] : 1935 83 From: Vance Russ MD Attending Dr: Elena Garcia Status: REG CLI Ordering Dr: Elena Garcia Date: 07/13/18 Location: CVS Sex: M C Admitted: Reason For Study: Abn. EKG Procedure This was a 2D Doppler, Color Flow transthoracic echocardiogram. Exam performed in department. Left Ventricle Normal LV size. Left ventricular systolic function is normal. The estimated ejection fraction is 65 %. Transmitral diastolic flow velocities suggest severe (stage 3) diastolic dysfunction. No regional wall motion abnormalities noted. Right Ventricle Normal RV size. Normal systolic function. Atria The left atrium is moderately enlarged. Normal right atrium. Mitral Valve Normal mitral valve. Mild (1+) eccentric mitral valve insufficiency. Tricuspid Valve Normal tricuspid valve. Mild (1+) tricuspid valve insufficiency. Pulmonary artery systolic pressure is 45 mmHg. Aortic Valve Trisinus/trileaflet aortic valve. Small strand or lambls noted on the aortic valve measuring 0.5cm. Pulmonic Valve Normal pulmonic valve. Great Vessels Normal aortic root. The pulmonary artery is normal size. Normal inferior vena cava. Pericardium/Pleural No pericardial effusion. Medication Diluted definity 2ml given slow IV push to enhance endocardial definition. MMode/2D Measurements AND Calculations LVIDd: 4.4 cm IVSd: 1.1 cm Ao root diam: 3.2 cm LVIDs: 2.2 cm LVPWd: 1.1 cm RVDd: 3.7 cm FS: 49.5 % LAV(MOD-bp): 94.6 ml LA A4 area: 28.2 cm2 LA dimension(2D): 5.3 cm LAV(MOD-bp) Indexed: 43.6 ml/m2 LAV(MOD-sp2): 90.3 ml LAV(MOD-sp4): 99.8 ml RA A4 area: 15.2 cm2 Doppler Measurements AND Calculations MV E max sridhar: 144.5 cm/sec Lat Peak E' Sridhar: 11.4 cm/sec Med Peak E' Sridhar: 8.9 cm/sec MV A max sridhar: 59.5 cm/sec E/E' lat: 12.6 E/E' med: 16.3 MV E/A: 2.4 Ao V2 max: 116.4 cm/sec LV V1 max: 98.6 cm/sec PA V2 max: 119.5 cm/sec Ao max P.4 mmHg LV V1 max P.9 mmHg TR max sridhar: 320.3 cm/sec TR max P.0 mmHg Interpretation Summary Normal LV size. Left ventricular systolic function is normal. The estimated ejection fraction is 65 %. Transmitral diastolic flow velocities suggest severe (stage 3) diastolic dysfunction Pulmonary artery systolic pressure is 45 mmHg. Trisinus/trileaflet aortic valve. Small strand or lambls noted on the aortic valve measuring 0.5cm Contrast injection was performed. Ordering Physician: Elena Garcia/Vance Russ Referring Physician: SUHAIL Shine M.D. Performed By: Akila Garay RDCS 07/13/181710 Date Vance Russ MD CC: Jaspreet Shine III, MD; Elena Garcia Date Dictated: 07/13/18 0743 Date Transcribed: 07/13/181710 Kiln Car Unloader: Signed OFFICE VISIT REPORT Observed: 07/07/2018 Status: F Source: [place] A 1:[address] [place] [address] OFFICE VISIT Date of Service: 08/23/17 MR#: [id number] Acct: [id number] Patient: JORGE ALAS Rep #: [id number] : 1935 Provider: Vance Russ MD Age/Sex: 82/M Location: [facility] Status: Signed Intake Vital Signs08/23/17 Height 5 ft 8 in 08/23/17 Blood Pressure 100/60 Intake Visit Reasons: atrial fib Chief Complaint: sob, nurse check and ekg Accompanied by: Is patient in pain?: No Allergies No Known Allergies Allergy (Verified 06/09/18 13:48) Medications Lovastatin [Mevacor] 40 mg PO QHS 05/24/13 [History Confirmed 06/09/18] Multivit-Min/FA/Lycopene/Lut [Centrum Silver Tablet] 1 tab PO DAILY 05/24/13 [History Confirmed 06/09/18] aspirin 81 mg tablet,delayed release 81 mg PO QDAY 09/03/17 [History Confirmed 06/09/18] amiodarone 200 mg tablet 200 mg PO QDAY #90 tab 10/20/17 [Rx Confirmed 06/09/18] rivaroxaban 20 mg tablet 20 mg PO DAILY #90 tab 10/20/17 [Rx Confirmed 06/09/18] furosemide 40 mg tablet 40 mg PO BID 11/27/17 [History Confirmed 06/09/18] losartan 50 mg tablet 25 mg PO QDAY #90 tab 03/28/18 [Rx Confirmed 06/09/18] isosorbide mononitrate ER 60 mg tablet,extended release 24 hr 30 mg PO QAM tab 06/09/18 [History Confirmed 06/09/18] metoprolol tartrate 25 mg tablet 12.5 mg PO BID #90 tab 06/14/18 [Rx] Nursing Note Patient here for ekg post ER visit 1 week ago, had rapid a- fib, HR 124. Sob. Metoprolol was increased to 25 mg po twice daily(he was on 12.5 mg po bid). Pt ekg shows a-fib but improved rate, 95, andbp 100/60. Pitting edema both legs to mid-dominguez. Reports SOB on exertion. Lungs clear posteriorly. Dr. Russ notified, ordered to increase Lasix to 40 mg po twice daily for 3 days. Pt to call with how he is doing. 07/07/18 1306 <Electronically signed by Elena HOFFMAN> Date Elena HOFFMAN Cosigner Signature: Date (if applicable) CC: CARDIOLOGY VISIT Observed: 06/21/2018 Status: F Source: [place] REPORT 2:31 PM [facility] [place] [facility] [address] [place] [address] OFFICE VISIT Date of Service: 06/09/18 MR#: [id number] Acct: [id number] Name: JORGE ALAS Rep #: [id number] : 1935 Provider: Elena Garcia Age/Sex: 83/M [place] [facility] [place] Signed HPI HPI Details: JORGE ALAS, is a 83 M who presents to the office today for an urgent visit. He has a history of coronary artery disease status post coronary artery bypass surgery left internal mammary artery to the left anterior descending artery, saphenous vein graft to circumflex artery and to the right coronary artery, paroxysmal atrial fibrillation hypertension and hyperlipidemia. Pt is concerned about several issues. He feels that this is related to his blood pressure readings. His notes that he is more SOB with exertion. However he states that this has been on going for at least a year. His exercise is limited because of this. 2 years ago he was able to walk at a moderate workload for a stress test, he does not think that he would be able to do that this time. He also notes that he has dizziness. He had called about chest pain and SOB. But now he sts that he does not have any. He does occasionally have lightheadedness but no syncope. He does not have any edema or claudication. But he does have numbness in his legs. In reviewing notes, when I seen him last year his breathing was not this bad. Intake Vital Signs06/09/18 Height 5 ft 8 in 06/09/18 Weight: 232 lb 06/09/18 Body Mass Index (BMI) 35.2 06/09/18 Blood Pressure 136/62 H 06/09/18 Blood Pressure Location Lt brachial Intake Visit Reasons: SOB (PER LL) Electrolysis Operator Required: No Accompanied by: Is patient in pain?: No Allergies No Known Allergies Allergy (Verified 06/09/18 13:48) Medications Lovastatin [Mevacor] 40 mg PO QHS 05/24/13 [History Confirmed 06/09/18] Multivit-Min/FA/Lycopene/Lut [Centrum Silver Tablet] 1 tab PO DAILY 05/24/13 [History Confirmed 06/09/18] aspirin 81 mg tablet,delayed release 81 mg PO QDAY 09/03/17 [History Confirmed 06/09/18] amiodarone 200 mg tablet 200 mg PO QDAY #90 tab 10/20/17 [Rx Confirmed 06/09/18] rivaroxaban 20 mg tablet 20 mg PO DAILY #90 tab 10/20/17 [Rx Confirmed 06/09/18] furosemide 40 mg tablet 40 mg PO BID 11/27/17 [History Confirmed 06/09/18] losartan 50 mg tablet 25 mg PO QDAY #90 tab 03/28/18 [Rx Confirmed 06/09/18] isosorbide mononitrate ER 60 mg tablet,extended release 24 hr 30 mg PO QAM tab 06/09/18 [History Confirmed 06/09/18] metoprolol tartrate 25 mg tablet 12.5 mg PO BID #90 tab 06/14/18 [Rx] Ejection fraction %: 55 to 59 PFSH Medical History Palpitations (Chronic) Hyperlipidemia (Chronic) Hypertension (Chronic) Atherosclerosis of coronary artery of [place] heart without angina pectoris (Chronic) Secondary pulmonary arterial hypertension (Chronic) Paroxysmal atrial fibrillation (Chronic) Chronic diastolic heart failure (Chronic) Shortness of breath (Acute) Surgical History H/O coronary artery bypass surgery (Chronic 09/20/97) History of appendectomy (Chronic) History of left heart catheterization (Chronic 12/12/14) History of thymectomy (Chronic) Hx of cholecystectomy (Chronic) Family History Mother CAD (coronary artery disease) Brother CAD (coronary artery disease) Social History Smoking Status: Never smoker alcohol intake: never substance use type: does not use caffeine: Yes Type: coffee Number of servings: 1 what type of physical activity do you participate in: none seatbelt use: always do you feel safe at home: Yes ROS Const Const: Positive for weakness and fatigue; negative for fever(s) or headache(s) Eyes Eyes: Negative for blind spots, loss of peripheral vision or transient loss of vision ENT ENT: Negative for headache(s), dizziness, tinnitus or Nosebleed/epistaxis Cardio Chest Pain: No Palpitations: No Edema: None Muscle aches with walking: None Resp Respiratory: Positive for SOB with activity; negative for SOB at rest, SOB orthopnea\SOB lying down or Cough GI GI: Negative nausea, vomiting, heartburn or vomiting blood/hematemesis : Negative for hematuria Musc Musc: Negative for muscle aches/ myalgia Neuro Neuro: Positive for weakness; negative for headache(s), dizziness, near syncope, syncope, lightheadedness or orthostatic symptoms Efrain Hematologic/Lymphatic: Negative for easy bleeding Endo Endo: Positive for fatigue Cardiology Exam Const Appearance: cooperative, healthy appearing, well developed, well groomed and no acute distress Nutritional Appearance: well nourished and average body habitus Orientation: alert, awake and oriented x3 Head Head: normal to inspection, normocephalic and atraumatic Ears: hearing grossly normal bilaterally and external ears normal Nose: external nose normal, nasal mucous membranes and turbinates normal, nares normal, septum normal, no nasal discharge Face and Sinus: face symmetric Mouth: oral mucosae normal, tongue normal, oropharynx normal and moist mucous membranes Teeth and gingiva: dentition normal Throat: posterior oropharynx normal, tonsils normal and uvula midline Eyes General: appearance normal, both eyes and all related structures Eyelids: eyelids normal Conjunctivae: conjunctivae normal Pupils: PERRL, normal by confrontation and accommodation normal EOM: EOM intact bilaterally Neck Neck: normal visual inspection, trachea midline and no JVD JVD: +5 Carotids: normal carotid upstroke and bounding pulses Chest Chest inspection: normal inspection of the chest, symmetric chest movement and normal respiratory effort Auscultation: Bilateral: Clear to Auscultation Cardio Palpation: normal PMI Rate: regular rate Rhythm: regular rhythm Heart sounds: S1 normal, S2 normal and normal, physiologic split S2; negative rub, gallop or murmur GI GI: normal to inspection, soft, no hepatosplenomegaly and bowel sounds present Neuro General: alert, awake, oriented x3, no focal sensory deficit, gait normal and moves all extremities Skin Skin: no rashes or lesions noted Extremities Pulses: Normal: Right Femoral Pulse, Left Femoral Pulse, Right Dorsalis Pedis Pulse, Left Dorsalis Pedis Pulse, Right Posterior Tibial Pulse, Left Posterior Tibial Pulse, Right Radial Pulse, Left Radial Pulse Lower Extremity Edema: None: Bilateral Musculoskel Musculoskeletal: No joint tenderness Psych Psychological: normal affect Supplemental Info Echocardiogram in July of 2016 Normal LV size. Left ventricular systolic function is normal. The estimated ejection fraction is 55 %. Pulmonary artery systolic pressure is 30 mmHg. The pulmonary pressures are better Compared to prior study, changes are noted. Stress test in October of 2015 demosntrated Stress test was negative for ischemia at a moderate worklaod. Assessment AND Plan 1. 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 I25.10 S/P CABG in 1997 with GONZALES to LAD, SVG to LCx, and SVG to RCA; Plan - DALTON Del Rosario Patient does have dyspnea with exertion. It is difficult to ascertain if this is worse than previous however after discussing with patient feel that it is. Did suggest obtaining a pharmacologic nuclear stress test. Patient would like to change medications first. If he does not feel any better with adjusting medications he is then agreeable to proceed with a pharmacologic nuclear stress test. He does not feel that he could walk on a treadmill at the same distance he walked on his treadmill 2 years ago. Orders Orders: 2. Paroxysmal atrial fibrillation I48.0 Plan - DALTON Del Rosario Patient has occasionally noted palpitations. He is concerned about his low heart rates. We will decrease his metoprolol to 12.5 mg twice a day. Patient is on amiodarone. Would like to obtain a pulmonary function test however patient would like to proceed with this at next office visit. Orders Orders: 3. Essential hypertension I10 Plan - DALTON Del Rosario Patient's blood pressure is on the low side of normal. He is concerned that this is a cause for shortness of breath. Will decrease his metoprolol to 12.5 mg twice a day. We are going also decrease his isosorbide as his blood pressures are slightly on the low side. We will continue to monitor closely. Patient Instructions - DALTON Del Rosario Decrease your isosorbide to 30 mg, decrease your metoprolol to 12.5 mg twice a day. get your labs done. Orders Orders: 4. Pure hypercholesterolemia E78.00 Plan - DALTON Del Rosario Patient is due to have his lipids checked in the near future. Will adjust accordingly Orders Orders: 5. Dyspnea on exertion R06.09 Plan - DALTON Del Rosario Will obtain labs. Would like to also obtain a stress test and a pulmonary function test patient would like to adjust medications first prior to proceeding with Patient Instructions - DALTON Del Rosario Plan Detail Other Orders Orders: Other Medications Changed: Additional Comments - DALTON Del Rosario Patient will keep his follow-up appointment with our office next month The above patient was discussed with Dr. Russ, he agrees with plan of care. Thank you for allowing us to participate in patient's plan of care, if you have any questions please do not hesitate to call. This note was generated using a voice recognition system and there may be incorrect words, spelling or punctuation errors that were not noted when reviewing the office note prior to saving. Follow Up 11/01/18 (keep as is) Coding Level of Care Code Off vis,est,level 4 Diagnoses 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 I25.10 Coronary Disease-Associated Artery/Lesion type: twenty-nine palms artery Paroxysmal atrial fibrillation I48.0 Essential hypertension I10 Hypertension type: essential hypertension Pure hypercholesterolemia E78.00 Hyperlipidemia type: pure hypercholesterolemia Dyspnea on exertion R06.09 Coding Level of Care Code Off vis,est,level 4 Diagnoses 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 I25.10 Coronary Disease-Associated Artery/Lesion type: twenty-nine palms artery Paroxysmal atrial fibrillation I48.0 Essential hypertension I10 Hypertension type: essential hypertension Pure hypercholesterolemia E78.00 Hyperlipidemia type: pure hypercholesterolemia Dyspnea on exertion R06.09 11 1603 <Electronically signed by Elena HOFFMAN> Date Elena HOFFMAN 06/21/18 1431<Electronically signed by Vance Russ MD> Cosigner Signature: Date (if applicable) Vance Russ MD CC: Jaspreet Shine III, MD CBC W/DIFF, AUTOMATED Collected: 06/21/2018 Status: F Source: [place] 9:[place] [facility] [place] CODE TESTS RESULT OUT OF RANGE REFERENCE UNITS LAB L100.1000 4.4-11.0 K/mm3 Normal WBC 6.6 LAB L100.1200 4.6-6.2 M/mm3 Low RBC 4.57 LAB L100.1300 13.0-16.5 g/dl Normal HGB 14.2 LAB L100.1400 40-54 % Normal HCT 43.4 LAB L100.1500 80-94 fL High MCV 95.0 LAB L100.1600 27.0-32.0 pg Normal MCH 31.1 LAB L100.1700 32-36 g/gl Normal MCHC 32.7 LAB L100.1810 11.6-14.6 % Normal RDW CV 14.5 LAB L100.1820 35.1-43.9 fl High RDW SD 48.4 LAB L100.1900 150-450 K/mm3 Low PLT 141 LAB L100.2000 6.2-12.0 fl Normal MPV 9.8 LAB L100.2100 47-70 % High NEUT% 70.1 LAB L100.2200 19-41 % Normal LY% 21.7 LAB L100.2300 0-10 % Normal MONO% 6.7 LAB L100.2400 0-5 % Normal EO% 1.1 LAB L100.2500 0-1 % Normal BASO% 0.2 LAB L100.2550 0.0-0.9 % Normal IM GRAN % 0.200 Result Comment: IG% - Immature Granulocytes (promyelocytes, myelocytes and metamyelocytes) > 1% indicates that a LEFT SHIFT is Present. LAB L100.2620 2.0-7.7 X10 3/uL Normal Absolute Neut 4.6 LAB L100.2720 0.83-4.51 X10 3/ul Normal Absolute Lymph 1.42 Performed By: #### L100.0100 #### [facility] [address], [place], [address] LIVER PROFILE Collected: 06/21/2018 Status: F Source: [place] 9:16 AM [facility] [place] CODE TESTS RESULT OUT OF RANGE REFERENCE UNITS LAB L501.1500 6.4-8.2 g/dL Normal T PROT 7.1 LAB L501.1800 3.2-5.0 g/dL Normal ALB 3.9 LAB L501.1950 2.2-4.2 g/dL Normal GLOB 3.2 LAB L501.4100 15-37 U/L Normal AST 23 LAB L501.4305 45-117 U/L Normal ALK P 110 LAB L501.4405 16-61 U/L Normal ALT 30 LAB L501.4600 0.20-1.00 mg/dL Normal T BILI 1.00 LAB L501.4700 0.00-0.30 mg/dL Normal D BILI 0.24 Performed By: #### L500.3400, L500.4100 #### [facility] [address] [place], [address] LIPID PROFILE Collected: 06/21/2018 Status: F Source: [place] 9:16 AM [facility] [place] CODE TESTS RESULT OUT OF RANGE REFERENCE UNITS LAB L501.4900 200 mg/dL Normal CHOL 140 Result Comment: <200 mg/dL Desirable 200-240 mg/dL Borderline >240 mg/dL High Risk LAB L501.5000 mg/dL Normal TRIG 183 Result Comment: The drugs N-Acetylcysteine and Metamizole may falsely depress this assay. Serum Triglycerides Reference Interval Normal <150 mg/dL Borderline high 150 - 199 mg/dL High 200 - 499 mg/dL Very High > or = 500 mg/dL LAB L501.6400 mg/dL Low HDL 38 Result Comment: The drugs N-Acetylcysteine and Metamizole may falsely depress this assay. Reference Range HDL <40 mg/dL Low HDL Cholesterol HDL >or= 60 mg/dL High HDL Cholesterol LAB L501.6500 0-130 mg/dL Normal LDL 65 LAB L501.6600 5-40 mg/dL Normal VLDL 37 Performed By: #### L500.3400, L500.4100 #### [facility] [address] [place], [address] BNP,B-TYPE NATRIURETIC Collected: 06/21/2018 Status: F Source: [place]PT[place] 9:16 AM [facility] [place] CODE TESTS RESULT OUT OF RANGE REFERENCE UNITS LAB L503.6620 0-100 pg/mL High B-TYPE 283.2 HAIDER PEP Performed By: #### L503.6620 #### [facility] [address] [place], [address] BASIC METABOLIC Collected: 06/21/2018 Status: F Source: [place] PROFILE (BMP) 9:16 AM [facility] [place] CODE TESTS RESULT OUT OF RANGE REFERENCE UNITS LAB L501.0100 74-106 mg/dL Normal GLU 93 Result Comment: Please note revised GLUCOSE reference range effective 2017. LAB L501.1000 7-18 mg/dL High BUN 25 LAB L501.1100 0.70-1.30 mg/dL High CREAT,SERUM 2.02 Result Comment: The validity of the calculated GFR AND GFRAA in patients over 70 years has not been determined. Clinical correlation is essential. LAB L501.1110 >60 mL/min Low EST GFR 34 Result Comment: Non- GFR Calc LAB L501.1115 >60 mL/min Low EST GFR - AA 41 Result Comment: GFR Calc LAB L501.1300 10-20 RATIO Normal BUN/CRE 12.4 LAB L501.2200 8.5-10.1 mg/dL CA Normal 8.5 LAB L501.5300 136-145 mmol/L NA Normal 142 LAB L501.5600 3.5-5.1 mmol/L K Normal 4.5 LAB L501.5900 98-107 mmol/L CL Normal 107 LAB L501.6100 21.0-32.0 mmol/L Normal CO2 28.0 LAB L501.6200 5-15 Normal GAP 7 Performed By: #### L500.2500, L501.9520, L506.0400 #### [facility] [address] [place], [address] THYROID STIM HORMONE Collected: 06/21/2018 Status: F Source: [place] A (TSH) 9:16 AM [facility] [place] CODE TESTS RESULT OUT OF RANGE REFERENCE UNITS LAB L501.9520 0.358-3.74 uIU/mL Normal TSH 2.64 Performed By: #### L500.2500, L501.9520, L506.0400 #### [facility] [address] [place], [address] T4 FREE DIRECT Collected: 06/21/2018 Status: F Source: [place] 9:16 AM [facility] [place] CODE TESTS RESULT OUT OF RANGE REFERENCE UNITS LAB L506.0400 0.76-1.46 ng/dL Normal T4 FREE 1.13 DIRECT Performed By: #### L500.2500, L501.9520, L506.0400 #### [facility] [address] [place], [address] PROGRESS Observed: 04/05/2018 Status: COMPLETED Source: [place] 10:30 AM [facility] REPOSITORY HNO ID: [id number] Author: Pari ([facility]) Podlogar Service: (none) Author Type: Nurse Practitioner Type: Progress Notes Filed: 04/05/2018 1:28 PM Note Text: 04/05/2018 Patient presents with: Recheck: 2 week F/U on (right) knee SUBJECTIVE: This is a 82 year old that is here today for Above Complaints. Initially seen on 02/08 with re-evaluation on 03/17 and 03/21 for right knee and leg swelling- see office notes. Following up today. Improved significantly since last visit. Has been wearing compression hose and icing and elevating when sitting. Reports knee is more flexible and he has no pain. Denies fever, chills, new swelling, redness,tenderness, other joint swelling, redness, or tenderness. Is getting back to his walking routine. PAST MEDICAL HISTORY Diagnosis Date - ASHD (arteriosclerotic heart disease) 08/12/201709/1997: CABG 3 - Chronic atrial fibrillation (HCC) 08/12/201707/2016: cardioversion in fall, 2016 EF 55% in 2017 - Coronary atherosclerosis of unspecified type of vessel, twenty-nine palms or graft - Diverticulosis of colon (without mention of hemorrhage) - Epididymal cyst 09/08/2011 - Essential hypertension, benign - History of coronary artery bypass surgery - Hydrocele 09/08/2011 - Hyperlipidemia - Hypertrophy of prostate with urinary obstruction and other lower urinary tract symptoms (LUTS) - Internal hemorrhoids without mention of complication - Paroxysmal atrial fibrillation (HCC) - 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 MEDICATIONS Current Outpatient Prescriptions: amiodarone (PACERONE) 200 mg tablet every day amiodarone (PACERONE) 200 mg tablet Take by mouth once daily. rivaroxaban (XARELTO) 20 mg tablet Take 20 mg by mouth once daily. isosorbide mononitrate ER (IMDUR) 30 mg 24 hr tablet Take 2 tablets by mouth once daily. furosemide (LASIX) 40 mg tablet Take 1 tablet by mouth once daily. metoprolol succinate ER (TOPROL XL) 25 mg 24 hr tablet Take 1/2 tablet twice daily aspirin, enteric coated (ADULT LOW DOSE ASPIRIN) 81 mg EC tablet Take 1 tablet by mouth once daily. losartan (COZAAR) 100 mg tablet Take 0.5 tablets by mouth once daily. Lovastatin 40 mg ORAL tablet Take 1 tablet by mouth daily with dinner. CENTRUM SILVER TAB Take one(1) tablet daily. cephALEXin (KEFLEX) 500 mg capsule Take 500 mg by mouth four times daily. No current facility-administered medications for this visit. Medications and allergies reviewed by this provider. SOCIAL HISTORY Social History Marital status: Spouse name: Emmanuelle Years of education: Number of children: 3 Occupational History Occupation Employer Comment [employer] Social History Main Topics Smoking status: Never Smoker Smokeless tobacco: Never Used Alcohol use: No Drug use: No REVIEW OF SYSTEMS RESPIRATORY: Negative for cough, hemoptysis, wheezing, COPD, dyspnea or shortness of breath CARDIOVASCULAR: Negative for chest pain, leg swelling, hypertension, CHF or palpitations All other reviewed and negative other than HPI. OBJECTIVE: BP 108/58 (BP Site: Right Arm, BP Position: Sitting, BP Cuff Size: Regular Adult) Pulse 68 Temp 36.7 ?C (98 ?F) (Tympanic) Resp 16 Wt 103.4 kg (228 lb) BMI 35.71 kg/m? . Vital signs reviewed by this provider. APPEARANCE Well appearing, alert, in no acute distress, well-hydrated, well nourished. EXTREMITIES Slight redness to right dominguez. Improving purplish discoloration to knee 1-2 + edema to right knee, right lower leg and foot. Cap refill WNL with 2+ pedal pulse. Right knee : without pain, drainage and painful movement. of the tibial tubercle, patellar tendon, patella, medial joint line, lateral joint line, medial epicondyle and lateral epicondyle. Swelling over anterior knee present without tenderness, redness, or hotness Slight limitation with flexion d/t swelling. Patellofemoral Compression Test negative Patellar Apprehension/subluxation negative Erik negative Alona negative Anterior Drawer negative Posterior Drawer negative. ROM: Right tibial tuberosity: 15.75 inches Right calf: 15 inches Left calf: 14 inches Left tibial tuberosity: 15 inches ASSESSMENT/PLAN: 1. Right leg swelling - ICD9: 729.81, ICD10: M79.89 (primary diagnosis) - significantly improved from last visit - no red flag exam findings - red flag symptoms discussed, verbalizes understanding - continue to use compression hose, elevate when sitting - follow-up as needed, to ER with red flag symptoms 2. Swelling of right knee joint - ICD9: 719.06, ICD10: M25.461 - consider bursitis vs effsuion - offered for him to see ortho d/t continued swelling and it does feel as if there is fluid on knee - declines, reports he has had fluid taken off knee in the past and prefers not to have this done again - no red flag exam findings - red flag symptoms discussed, verbalizes understanding - may use marlene wrap for compression and ice and elevation when sitting - follow-up as needed, to ER with red flag sympotms Pari Draper APRN.GUANAKO Prescription instructions reviewed with patient as applicable. Patient advised if symptoms do not improve or if symptoms worsen sooner, to contact their primary care physician. Potential red flag symptoms discussed with the patient. Reviewed appropriate action plan to take if red flag symptoms occur. Patient agreeable to treatment plan. CNOV Observed: 04/05/2018 Status: COMPLETED Source: [place] 10:20 AM [facility] REPOSITORY [facility] JORGE [facility] ([id number]) 1935 M Date Time Provider Department 04/05/18 10:20 AM PARI DRAPER (GUANAKO) [facility] During your visit today, we recorded the following information about you: Temperature Pulse Respiration Blood pressure 98 degrees 68/minute 16/minute 108/58 Weight 103.4 kg Pari Draper APRN.CNP 04/05/2018 1:28 PM Signed 04/05/2018 Patient presents with: Recheck: 2 week F/U on (right) knee SUBJECTIVE: This is a 82 year old that is here today for Above Complaints. Initially seen on 02/08 with re-evaluation on 03/17 and 03/21 for right knee and leg swelling- see office notes. Following up today. Improved significantly since last visit. Has been wearing compression hose and icing and elevating when sitting. Reports knee is more flexible and he has no pain. Denies fever, chills, new swelling, redness,tenderness, other joint swelling, redness, or tenderness. Is getting back to his walking routine. PAST MEDICAL HISTORY Diagnosis Date - ASHD (arteriosclerotic heart disease) 08/12/201709/1997: CABG 3 - Chronic atrial fibrillation (HCC) 08/12/201707/2016: cardioversion in fall, 2016 EF 55% in 2017 - Coronary atherosclerosis of unspecified type of vessel, twenty-nine palms or graft - Diverticulosis of colon (without mention of hemorrhage) - Epididymal cyst 09/08/2011 - Essential hypertension, benign - History of coronary artery bypass surgery - Hydrocele 09/08/2011 - Hyperlipidemia - Hypertrophy of prostate with urinary obstruction and other lower urinary tract symptoms (LUTS) - Internal hemorrhoids without mention of complication - Paroxysmal atrial fibrillation (HCC) - 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 MEDICATIONS Current Outpatient Prescriptions: amiodarone (PACERONE) 200 mg tablet every day amiodarone (PACERONE) 200 mg tablet Take by mouth once daily. rivaroxaban (XARELTO) 20 mg tablet Take 20 mg by mouth once daily. isosorbide mononitrate ER (IMDUR) 30 mg 24 hr tablet Take 2 tablets by mouth once daily. furosemide (LASIX) 40 mg tablet Take 1 tablet by mouth once daily. metoprolol succinate ER (TOPROL XL) 25 mg 24 hr tablet Take 1/2 tablet twice daily aspirin, enteric coated (ADULT LOW DOSE ASPIRIN) 81 mg EC tablet Take 1 tablet by mouth once daily. losartan (COZAAR) 100 mg tablet Take 0.5 tablets by mouth once daily. Lovastatin 40 mg ORAL tablet Take 1 tablet by mouth daily with dinner. CENTRUM SILVER TAB Take one(1) tablet daily. cephALEXin (KEFLEX) 500 mg capsule Take 500 mg by mouth four times daily. No current facility-administered medications for this visit. Medications and allergies reviewed by this provider. SOCIAL HISTORY Social History Marital status: Spouse name: Emmanuelle Years of education: Number of children: 3 Occupational History Occupation Employer Comment [employer]* Social History Main Topics Smoking status: Never Smoker Smokeless tobacco: Never Used Alcohol use: No Drug use: No REVIEW OF SYSTEMS RESPIRATORY: Negative for cough, hemoptysis, wheezing, COPD, dyspnea or shortness of breath CARDIOVASCULAR: Negative for chest pain, leg swelling, hypertension, CHF or palpitations All other reviewed and negative other than HPI. OBJECTIVE: BP 108/58 (BP Site: Right Arm, BP Position: Sitting, BP Cuff Size: Regular Adult) Pulse 68 Temp 36.7 ?C (98 ?F) (Tympanic) Resp 16 Wt 103.4 kg (228 lb) BMI 35.71 kg/m? . Vital signs reviewed by this provider. APPEARANCE Well appearing, alert, in no acute distress, well- hydrated, well nourished. EXTREMITIES Slight redness to right dominguez. Improving purplish discoloration to knee 1-2 + edema to right knee, right lower leg and foot. Cap refill WNL with 2+ pedal pulse. Right knee : without pain, drainage and painful movement. of the tibial tubercle, patellar tendon, patella, medial joint line, lateral joint line, medial epicondyle and lateral epicondyle. Swelling over anterior knee present without tenderness, redness, or hotness Slight limitation with flexion d/t swelling. Patellofemoral Compression Test negative Patellar Apprehension/subluxation negative Erik negative Alona negative Anterior Drawer negative Posterior Drawer negative. ROM: Right tibial tuberosity: 15.75 inches Right calf: 15 inches Left calf: 14 inches Left tibial tuberosity: 15 inches ASSESSMENT/PLAN: 1. Right leg swelling - ICD9: 729.81, ICD10: M79.89 (primary diagnosis) - significantly improved from last visit - no red flag exam findings - red flag symptoms discussed, verbalizes understanding - continue to use compression hose, elevate when sitting - follow-up as needed, to ER with red flag symptoms 2. Swelling of right knee joint - ICD9: 719.06, ICD10: M25.461 - consider bursitis vs effsuion - offered for him to see ortho d/t continued swelling and it does feel as if there is fluid on knee - declines, reports he has had fluid taken off knee in the past and prefers not to have this done again - no red flag exam findings - red flag symptoms discussed, verbalizes understanding - may use marlene wrap for compression and ice and elevation when sitting - follow-up as needed, to ER with red flag sympotms Pari Draper APRN.CNP Prescription instructions reviewed with patient as applicable. Patient advised if symptoms do not improve or if symptoms worsen sooner, to contact their primary care physician. Potential red flag symptoms discussed with the patient. Reviewed appropriate action plan to take if red flag symptoms occur. Patient agreeable to treatment plan. Pari Draper APRN.CNP 04/05/2018 11:12 AM Signed If you develop fevers, chills, increased redness, increased swelling, pain in leg return to office If you develop red streaking up leg, hot/red joint go to ER Referring Provider: PARI DRAPER (GUANAKO) [[id number]] Allergies As of Date: 04/05/2018 (No Known Allergies) Date Reviewed: 04/05/2018 Reviewed by: Ortega Knowles Cma - Fully Assessed Reason for Visit: Recheck [92] Cmt: 2 week F/U on (right) knee Primary Visit Diagnosis:Right leg swelling [M79.89] Other Visit Diagnosis:Swelling of right knee joint [M25.461] Order(s):LDL CHOLESTEROL DIRECT (FOR REMOTE [facility] USE) [SQRLDL] Order #: [id number] Prescriptions as of 04/05/2018 Sig: AMIODARONE 200 MG TABLET every day AMIODARONE 200 MG TABLET Take by mouth once daily. RIVAROXABAN 20 MG TABLET Take 20 mg by mouth once lisa* ISOSORBIDE MONONITRATE ER 30 * Take 2 tablets by mouth once * FUROSEMIDE 40 MG TABLET Take 1 tablet by mouth once d* METOPROLOL SUCCINATE ER 25 MG* Take 1/2 tablet twice daily ASPIRIN 81 MG TABLET,DELAYED * Take 1 tablet by mouth once d* LOSARTAN 100 MG TABLET Take 0.5 tablets by mouth onc* * LOVASTATIN 40 MG TABLET Take 1 tablet by mouth daily * * CENTRUM SILVER TABLET Take one(1) tablet daily. CEPHALEXIN 500 MG CAPSULE Take 500 mg by mouth four yaneli* Medication notes this encounter AMIODARONE 200 MG TABLET >> Ortega Knowles Cma 04/05/2018 10:21 AM >> ORTEGA KNOWLES CMA Apr 05, 2018 10:21 AM DUPLICATE Problem List As Of Date 04/05/2018 Noted Resolved BENIGN HYPERTENSION [I10] INVALID FOR* 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 ASHD (arteriosclerotic heart disease) [I25.10] INVALID FOR* More... Chronic atrial fibrillation (HCC) [I48.2] INVALID FOR* More... Other instructions from your clinician: If you develop fevers, chills, increased redness, increased swelling, pain in leg return to office If you develop red streaking up leg, hot/red joint go to ER Encounter Status:Closed by PARI DRAPER CNP on 04/05/18 CNPTOUTRISADORA Observed: 03/22/2018 Status: COMPLETED Source: [place] 12:00 AM [facility] REPOSITORY Patient Outreach ([facility]) JORGE ALAS ([id number]) 1935 M Date Time Provider Department 03/22/18 [facility]ET [facility]INE [facility] During your visit today, we recorded the following information about you: Allergies As of Date: 03/22/2018 (No Known Allergies) Date Reviewed: 03/21/2018 Reviewed by: Chelsie Quintana (Zacarias) ZACARIAS Gabriel - Fully Assessed Order(s):LIPID PANEL BASIC [SQLIPB] Order #: [id number] FUTURE Prescriptions as of 03/22/2018 Sig: AMIODARONE 200 MG TABLET Take by mouth once daily. CEPHALEXIN 500 MG CAPSULE Take 500 mg by mouth four yaneli* RIVAROXABAN 20 MG TABLET Take 20 mg by mouth once lisa* ISOSORBIDE MONONITRATE ER 30 * Take 2 tablets by mouth once * FUROSEMIDE 40 MG TABLET Take 1 tablet by mouth once d* METOPROLOL SUCCINATE ER 25 MG* Take 1/2 tablet twice daily ASPIRIN 81 MG TABLET,DELAYED * Take 1 tablet by mouth once d* LOSARTAN 100 MG TABLET Take 0.5 tablets by mouth onc* * LOVASTATIN 40 MG TABLET Take 1 tablet by mouth daily * * CENTRUM SILVER TABLET Take one(1) tablet daily. Problem List As Of Date 03/22/2018 Noted Resolved BENIGN HYPERTENSION [I10] INVALID FOR* 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 ASHD (arteriosclerotic heart disease) [I25.10] INVALID FOR* More... Chronic atrial fibrillation (HCC) [I48.2] INVALID FOR* More... Encounter Status:Closed by MILLIE WARE on 05/20/18 PROGRESS Observed: 03/21/2018 Status: COMPLETED Source: [place] 11:13 AM [facility] HNO ID: [id number] Author: Pari ([facility]) Podlogar Service: (none) Author Type: Nurse Practitioner Type: Progress Notes Filed: 03/21/2018 4:23 PM Note Text: 03/21/2018 Patient presents with: Recheck: on rt knee SUBJECTIVE: This is a 82 year old that is here today for Above Complaints. Pateint initially seen on 03/08 and 03/17 for right knee and leg swelling. See office notes. Following up today for re-evaluation. Improving. Reports some stiffness, swelling, and redness. Has 3 days of 10 day course of Keflex left. Still feels stiff- mild pain when stands up and flexes knee. Denies fever, chills, new swelling, redness, tenderness since last week. Has been using ice and compression on/off with some help to swelling. PAST MEDICAL HISTORY Diagnosis Date - ASHD (arteriosclerotic heart disease) 08/12/201709/1997: CABG 3 - Chronic atrial fibrillation (HCC) 08/12/201707/2016: cardioversion in fall, 2016 EF 55% in 2017 - Coronary atherosclerosis of unspecified type of vessel, twenty-nine palms or graft - Diverticulosis of colon (without mention of hemorrhage) - Epididymal cyst 09/08/2011 - Essential hypertension, benign - History of coronary artery bypass surgery - Hydrocele 09/08/2011 - Hyperlipidemia - Hypertrophy of prostate with urinary obstruction and other lower urinary tract symptoms (LUTS) - Internal hemorrhoids without mention of complication - Paroxysmal atrial fibrillation (HCC) - 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 MEDICATIONS Current Outpatient Prescriptions: amiodarone (PACERONE) 200 mg tablet Take by mouth once daily. cephALEXin (KEFLEX) 500 mg capsule Take 500 mg by mouth four times daily. rivaroxaban (XARELTO) 20 mg tablet Take 20 mg by mouth once daily. isosorbide mononitrate ER (IMDUR) 30 mg 24 hr tablet Take 2 tablets by mouth once daily. furosemide (LASIX) 40 mg tablet Take 1 tablet by mouth once daily. metoprolol succinate ER (TOPROL XL) 25 mg 24 hr tablet Take 1/2 tablet twice daily aspirin, enteric coated (ADULT LOW DOSE ASPIRIN) 81 mg EC tablet Take 1 tablet by mouth once daily. Lovastatin 40 mg ORAL tablet Take 1 tablet by mouth daily with dinner. CENTRUM SILVER TAB Take one(1) tablet daily. losartan (COZAAR) 100 mg tablet Take 0.5 tablets by mouth once daily. No current facility-administered medications for this visit. Medications and allergies reviewed by this provider. SOCIAL HISTORY Social History Marital status: Spouse name: Emmanuelle Years of education: Number of children: 3 Occupational History Occupation Employer Comment [employer] Social History Main Topics Smoking status: Never Smoker Smokeless tobacco: Never Used Alcohol use: No Drug use: No REVIEW OF SYSTEMS All other reviewed and negative other than HPI. OBJECTIVE: BP 118/56 (BP Site: Left Arm, BP Position: Sitting, BP Cuff Size: Regular Adult) Pulse 64 Resp 16 Wt 104.4 kg (230 lb 1.3 oz) BMI 36.04 kg/m? . Vital signs reviewed by this provider. APPEARANCE Well appearing, alert, in no acute distress, well-hydrated, well nourished. EXTREMITIES: Improving erythema to right dominguez. Slight purplish discoloration to knee 2+ edema to right knee and lower extremity to top of foot. Cap refill WNL with 2+ pedal pulses bilaterally. Right tibial tuberosity: 16.75 Right Calf: 16.75 Left calf: 14 Left tibial tuberosity: 14.75 ASSESSMENT/PLAN: 1. Right leg swelling - ICD9: 729.81, ICD10: M79.89 (primary diagnosis) - finish keflex - no red flag exam findings - red flag symptoms discussed, verbalizes understanding - Continue to use compression,ice, and elevation. Add marlene wrap to go above knee - follow-up in 2 weeks, sooner if needed, to ER with red flag symptoms 2. Swelling of right knee joint - ICD9: 719.06, ICD10: M25.461 - as above Pari Draper, EMBOSSING TOOLSETTER.TELETYPE ADJUSTER Prescription instructions reviewed with patient as applicable. Patient advised if symptoms do not improve or if symptoms worsen sooner, to contact their primary care physician. Potential red flag symptoms discussed with the patient. Reviewed appropriate action plan to take if red flag symptoms occur. Patient agreeable to treatment plan. REINALDO Observed: 03/21/2018 Status: COMPLETED Source: [place] 11:00 AM [facility] REPOSITORY [facility] JORGE ALAS ([id number]) 1935 M Date Time Provider Department 03/21/18 11:00 AM PARI DRAPER (GUANAKO) LETI During your visit today, we recorded the following information about you: Pulse Respiration Blood pressure Weight 64/minute 16/minute 118/56 104.4 kg Chelsie Mansfield RAILROAD CAR INSPECTOR 03/21/2018 11:09 AM Signed Pt states knee is still slightly red but swollen. Hard to flex causes discomfort. Rash appears last couple days on back of rt leg. Pari NylogJUAN C rodriguez.GUANAKO 03/21/2018 4:23 PM Signed 03/21/2018 Patient presents with: Recheck: on rt knee SUBJECTIVE: This is a 82 year old that is here today for Above Complaints. Pateint initially seen on 03/08 and 03/17 for right knee and leg swelling. See office notes. Following up today for re-evaluation. Improving. Reports some stiffness, swelling, and redness. Has 3 days of 10 day course of Keflex left. Still feels stiff- mild pain when stands up and flexes knee. Denies fever, chills, new swelling, redness, tenderness since last week. Has been using ice and compression on/off with some help to swelling. PAST MEDICAL HISTORY Diagnosis Date - ASHD (arteriosclerotic heart disease) 08/12/201709/1997: CABG 3 - Chronic atrial fibrillation (HCC) 08/12/201707/2016: cardioversion in fall, 2016 EF 55% in 2017 - Coronary atherosclerosis of unspecified type of vessel, twenty-nine palms or graft - Diverticulosis of colon (without mention of hemorrhage) - Epididymal cyst 09/08/2011 - Essential hypertension, benign - History of coronary artery bypass surgery - Hydrocele 09/08/2011 - Hyperlipidemia - Hypertrophy of prostate with urinary obstruction and other lower urinary tract symptoms (LUTS) - Internal hemorrhoids without mention of complication - Paroxysmal atrial fibrillation (HCC) - 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 MEDICATIONS Current Outpatient Prescriptions: amiodarone (PACERONE) 200 mg tablet Take by mouth once daily. cephALEXin (KEFLEX) 500 mg capsule Take 500 mg by mouth four times daily. rivaroxaban (XARELTO) 20 mg tablet Take 20 mg by mouth once daily. isosorbide mononitrate ER (IMDUR) 30 mg 24 hr tablet Take 2 tablets by mouth once daily. furosemide (LASIX) 40 mg tablet Take 1 tablet by mouth once daily. metoprolol succinate ER (TOPROL XL) 25 mg 24 hr tablet Take 1/2 tablet twice daily aspirin, enteric coated (ADULT LOW DOSE ASPIRIN) 81 mg EC tablet Take 1 tablet by mouth once daily. Lovastatin 40 mg ORAL tablet Take 1 tablet by mouth daily with dinner. CENTRUM SILVER TAB Take one(1) tablet daily. losartan (COZAAR) 100 mg tablet Take 0.5 tablets by mouth once daily. No current facility-administered medications for this visit. Medications and allergies reviewed by this provider. SOCIAL HISTORY Social History Marital status: Spouse name: Emmanuelle Years of education: Number of children: 3 Occupational History Occupation Employer Comment [employer]* Social History Main Topics Smoking status: Never Smoker Smokeless tobacco: Never Used Alcohol use: No Drug use: No REVIEW OF SYSTEMS All other reviewed and negative other than HPI. OBJECTIVE: BP 118/56 (BP Site: Left Arm, BP Position: Sitting, BP Cuff Size: Regular Adult) Pulse 64 Resp 16 Wt 104.4 kg (230 lb 1.3 oz) BMI 36.04 kg/m? . Vital signs reviewed by this provider. APPEARANCE Well appearing, alert, in no acute distress, well- hydrated, well nourished. EXTREMITIES: Improving erythema to right dominguez. Slight purplish discoloration to knee 2+ edema to right knee and lower extremity to top of foot. Cap refill WNL with 2+ pedal pulses bilaterally. Right tibial tuberosity: 16.75 Right Calf: 16.75 Left calf: 14 Left tibial tuberosity: 14.75 ASSESSMENT/PLAN: 1. Right leg swelling - ICD9: 729.81, ICD10: M79.89 (primary diagnosis) - finish keflex - no red flag exam findings - red flag symptoms discussed, verbalizes understanding - Continue to use compression,ice, and elevation. Add marlene wrap to go above knee - follow-up in 2 weeks, sooner if needed, to ER with red flag symptoms 2. Swelling of right knee joint - ICD9: 719.06, ICD10: M25.461 - as above Pari Podlogjennifer, EMBOSSING TOOLSETTER.TELETYPE ADJUSTER Prescription instructions reviewed with patient as applicable. Patient advised if symptoms do not improve or if symptoms worsen sooner, to contact their primary care physician. Potential red flag symptoms discussed with the patient. Reviewed appropriate action plan to take if red flag symptoms occur. Patient agreeable to treatment plan. Pari Draper APRN.CNP 03/21/2018 11:38 AM Signed If you develop fever, chills, increased redness, swelling, pain, or warmth Referring Provider: PARI DRAPER (GUANAKO) [[id number]] Allergies As of Date: 03/21/2018 (No Known Allergies) Date Reviewed: 03/21/2018 Reviewed by: Chelsie Mansfield LPN - Fully Assessed Reason for Visit: Recheck [92] Cmt: on rt knee Primary Visit Diagnosis:Right leg swelling [M79.89] Other Visit Diagnosis:Swelling of right knee joint [M25.461] Prescriptions as of 03/21/2018 Sig: AMIODARONE 200 MG TABLET Take by mouth once daily. CEPHALEXIN 500 MG CAPSULE Take 500 mg by mouth four yaneli* RIVAROXABAN 20 MG TABLET Take 20 mg by mouth once lisa* ISOSORBIDE MONONITRATE ER 30 * Take 2 tablets by mouth once * FUROSEMIDE 40 MG TABLET Take 1 tablet by mouth once d* METOPROLOL SUCCINATE ER 25 MG* Take 1/2 tablet twice daily ASPIRIN 81 MG TABLET,DELAYED * Take 1 tablet by mouth once d* * LOVASTATIN 40 MG TABLET Take 1 tablet by mouth daily * * CENTRUM SILVER TABLET Take one(1) tablet daily. LOSARTAN 100 MG TABLET Take 0.5 tablets by mouth onc* Problem List As Of Date 03/21/2018 Noted Resolved BENIGN HYPERTENSION [I10] INVALID FOR* 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 ASHD (arteriosclerotic heart disease) [I25.10] INVALID FOR* More... Chronic atrial fibrillation (HCC) [I48.2] INVALID FOR* More... Other instructions from your clinician: If you develop fever, chills, increased redness, swelling, pain, or warmth Visit Notes: >> Chelsie Mansfield RAILROAD CAR INSPECTOR Mon Mar 21, 2018 11:06 AM Status: Signed Pt states knee is still slightly red but swollen. Hard to flex causes discomfort. Rash appears last couple days on back of rt leg. Follow-up and Disposition History Recorded Encounter Status:Closed by PODLOGAR, PARI MUJICA on 03/21/18 PROGRESS Observed: 03/17/2018 Status: COMPLETED Source: [place] 10:21 AM [facility] REPOSITORY HNO ID: [id number] Author: Pari Ellington) Podlogar Service: (none) Author Type: Nurse Practitioner Type: Progress Notes Filed: 03/21/2018 11:45 AM Note Text: 03/17/2018 Patient presents with: Recheck: on rt knee, wednesday night was much more red and painful went to [facility] er was placed on cephalexin 500mg SUBJECTIVE: This is a 82 year old that is here today for Above Complaints. Initillay seen on 03/08/2018 for right knee pain, swelling, and bruising. See office note. Had XR of knee,US of leg, and CBC with diff. See results below Component Latest Ref Rng AND Units 03/08/2018 WBC, Maria A 3.70 - 11.00 k/uL 7.87 RBC, Maria A 4.20 - 6.00 m/uL 3.96 (L) Hemoglobin, Maria A 13.0 - 17.0 g/dL 12.7 (L) Hematocrit, Cortez 39.0 - 51.0 % 38.7 (L) MCV, Maria A 80.0 - 100.0 fL 97.7 MCH, Cortez 26.0 - 34.0 pg 32.1 MCHC, Maria A 30.5 - 36.0 g/dL 32.8 RDW, Cortez 11.5 - 15.0 % 14.6 Platelet Cnt, Cortez 150 - 400 k/uL 130 (L) MPV, Maria A 9.0 - 12.7 fL 9.7 Neut%, Cortez % 68.6 Lymp%, Cortez % 23.3 Madison%, Cortez % 7.5 Eos%, Cortez % 0.5 Baso%, Cortez % 0.1 Abs Neut, Cortez 1.45 - 7.50 k/uL 5.40 Abs Lymp, Maria A 1.00 - 4.00 k/uL 1.83 Abs Madison, Maria A <0.87 k/uL 0.59 Abs Eos, Maria A <0.46 k/uL 0.04 Abs Baso, Cortez <0.11 k/uL <0.03 * *Final Report* * * DATE OF EXAM: Mar 08 2018 ?1:00PM ? WRX ? 5207 ?- ?XR KNEE 2V AP/LAT RT ?/ PROCEDURE REASON: multiple diagnoses ?? ? * * * * Physician Interpretation * * * * ?EXAM: KNEES AP STANDING and right knee Indication: Pain Procedure: Single AP weight-bearing views of the right and left knee, and ?lateral right knee. Findings: Bilateral medial joint space narrowing. ?Left more severe than right. ?Left medial joint space [id number] ?Minimal osteophyte formation.There is no evidence for fracture or subluxation. ? Patellofemoral joint space narrowing. ?No suprapatellar effusion.. ? Tendon calcifications (enthesophytes), ? ?osteophyte formation)) surgical clips posterior medial to the right knee.. ?Soft tissue swelling anterior to the knee IMPRESSION ? RIGHT SIDE - DEEP VEINS Negative for acute deep vein thrombosis. LEFT SIDE - DEEP VEINS Spontaneous and respirophasic flow noted in the common femoral vein. ? Technologist: Farheen STANLEYT, RDNE Ordering physician: Pari Draper TELETYPE ADJUSTER ? Interpreting physician: Gabino Durham MD, RVT Since last visit patient was seen in [facility] on 03/13/2018 for increased redness and pain. Dignosiedwith cellulites and sent home on keflex 500 mg four times a day for 10 days. Is on day 4 of 10. Reports less redness, swelling, and tenderness since staring antibiotic. Denies fever, chills, new swelling, redness, tenderness, or other joint swelling. Hx of thrombocytopenia and takes Xeralto. Last platelets 130. In [facility] on 128. WBC at [facility] on 03/13/2018 5.7 PAST MEDICAL HISTORY Diagnosis Date - ASHD (arteriosclerotic heart disease) 08/12/201709/1997: CABG 3 - Chronic atrial fibrillation (HCC) 08/12/201707/2016: cardioversion in 2016 EF 55% in 2017 - Coronary atherosclerosis of unspecified type of vessel, twenty-nine palms or graft - Diverticulosis of colon (without mention of hemorrhage) - Epididymal cyst 09/08/2011 - Essential hypertension, benign - History of coronary artery bypass surgery - Hydrocele 09/08/2011 - Hyperlipidemia - Hypertrophy of prostate with urinary obstruction and other lower urinary tract symptoms (LUTS) - Internal hemorrhoids without mention of complication - Paroxysmal atrial fibrillation (HCC) - 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 MEDICATIONS Current Outpatient Prescriptions: amiodarone (PACERONE) 200 mg tablet Take by mouth once daily. cephALEXin (KEFLEX) 500 mg capsule Take 500 mg by mouth four times daily. rivaroxaban (XARELTO) 20 mg tablet Take 20 mg by mouth once daily. isosorbide mononitrate ER (IMDUR) 30 mg 24 hr tablet Take 2 tablets by mouth once daily. furosemide (LASIX) 40 mg tablet Take 1 tablet by mouth once daily. metoprolol succinate ER (TOPROL XL) 25 mg 24 hr tablet Take 1/2 tablet twice daily aspirin, enteric coated (ADULT LOW DOSE ASPIRIN) 81 mg EC tablet Take 1 tablet by mouth once daily. losartan (COZAAR) 100 mg tablet Take 0.5 tablets by mouth once daily. Lovastatin 40 mg ORAL tablet Take 1 tablet by mouth daily with dinner. CENTRUM SILVER TAB Take one(1) tablet daily. No current facility-administered medications for this visit. Medications and allergies reviewed by this provider. SOCIAL HISTORY Social History Marital status: Spouse name: Emmanuelle Years of education: Number of children: 3 Occupational History Occupation Employer Comment [employer]* Social History Main Topics Smoking status: Never Smoker Smokeless tobacco: Never Used Alcohol use: No Drug use: No REVIEW OF SYSTEMS All other reviewed and negative other than HPI. OBJECTIVE: BP 104/58 (BP Site: Left Arm, BP Position: Sitting, BP Cuff Size: Large Adult) Pulse 64 Resp 18 Wt 105.3 kg (232 lb 0.6 oz) BMI 36.34 kg/m? . Vital signs reviewed by this provider. APPEARANCE Well appearing, alert, in no acute distress, well-hydrated, well nourished. HEART RRR with normal S1 and S2, no murmurs, no gallops, no JVD appreciated LUNG clear to auscultation EXTREMITIES No deformities and Normal pulses bilaterally.Ecchymosis almost completely resolved- small amount nright upper medial thigh. Erythema and mild warmth to right dominguez. 2-3+ edema from right knee to top of foot. Cap refill WNL Leg measurements Right calf: 16.75 inches Right tibial tuberosity: 17 inches Left Calf:14 inches Left tibial tuberosity: 14.75 ASSESSMENT/PLAN: 1. Cellulitis of skin - ICD9: 682.9, ICD10: L03.90 - Continue treatment with Cephalaxin (Keflex) - No lymphangetic streaking, this was defined for patient to watch for and to seek medical care immediately if appears - Area of cellulitis defined with pen, seek further attention if this area continues to enlarge - encouraged to elevate leg above heart level when sitting. Has compression hose he can wear- reports wore them yesterday and thought they made swelling worse - Follow up for recheck in Wednesday Pari Podlogar, EMBOSSING TOOLSETTER.TELETYPE ADJUSTER Prescription instructions reviewed with patient as applicable. Patient advised if symptoms do not improve or if symptoms worsen sooner, to contact their primary care physician. Potential red flag symptoms discussed with the patient. Reviewed appropriate action plan to take if red flag symptoms occur. Patient agreeable to treatment plan. CNOV Observed: 03/17/2018 Status: COMPLETED Source: [place] 10:20 AM [facility] REPOSITORY [facility] JORGE ALAS ([id number]) 1935 M Date Time Provider Department 03/17/18 10:20 AM PARI DRAPER (GUANAKO) LETI During your visit today, we recorded the following information about you: Pulse Respiration Blood pressure Weight 64/minute 18/minute 104/58 105.3 kg Pari Draper APRN.CNP 03/21/2018 11:45 AM Signed 03/17/2018 Patient presents with: Recheck: on rt knee, wednesday night was much more red and painful went to [facility] er was placed on cephalexin 500mg SUBJECTIVE: This is a 82 year old that is here today for Above Complaints. Initillay seen on 03/08/2018 for right knee pain, swelling, and bruising. See office note. Had XR of knee,US of leg, and CBC with diff. See results below Component Latest Ref Rng AND Units 03/08/2018 WBC, Cortez 3.70 - 11.00 k/uL 7.87 RBC, Cortez 4.20 - 6.00 m/uL 3.96 (L) Hemoglobin, Maria A 13.0 - 17.0 g/dL 12.7 (L) Hematocrit, Maria A 39.0 - 51.0 % 38.7 (L) MCV, Maria A 80.0 - 100.0 fL 97.7 MCH, Maria A 26.0 - 34.0 pg 32.1 MCHC, Cortez 30.5 - 36.0 g/dL 32.8 RDW, Maria A 11.5 - 15.0 % 14.6 Platelet Cnt, Maria A 150 - 400 k/uL 130 (L) MPV, Cortez 9.0 - 12.7 fL 9.7 Neut%, Maria A % 68.6 Lymp%, Maria A % 23.3 Madison%, Maria A % 7.5 Eos%, Cortez % 0.5 Baso%, Cortez % 0.1 Abs Neut, Cortez 1.45 - 7.50 k/uL 5.40 Abs Lymp, Maria A 1.00 - 4.00 k/uL 1.83 Abs Madison, Maria A <0.87 k/uL 0.59 Abs Eos, Maria A <0.46 k/uL 0.04 Abs Baso, Cortez <0.11 k/uL <0.03 * *Final Report* * * DATE OF EXAM: Mar 08 2018 ?1:00PM ? WRX ? 5207 ?- ?XR KNEE 2V AP/LAT RT ?/ PROCEDURE REASON: multiple diagnoses ?? ? * * * * Physician Interpretation * * * * ?EXAM: KNEES AP STANDING and right knee Indication: Pain Procedure: Single AP weight-bearing views of the right and left knee, and ?lateral right knee. Findings: Bilateral medial joint space narrowing. ?Left more severe than right. ?Left medial joint space [id number] ?Minimal osteophyte formation.There is no evidence for fracture or subluxation. ? Patellofemoral joint space narrowing. ?No suprapatellar effusion.. ? Tendon calcifications (enthesophytes), ? ?osteophyte formation)) surgical clips posterior medial to the right knee.. ?Soft tissue swelling anterior to the knee IMPRESSION ? RIGHT SIDE - DEEP VEINS Negative for acute deep vein thrombosis. LEFT SIDE - DEEP VEINS Spontaneous and respirophasic flow noted in the common femoral vein. ? Technologist: Farheen STANLEYT, [facility] Ordering physician: Pari Draper TELETYPE ADJUSTER ? Interpreting physician: Gabino Durham MD, RVT Since last visit patient was seen in [facility] on 03/13/2018 for increased redness and pain. Dignosiedwith cellulites and sent home on keflex 500 mg four times a day for 10 days. Is on day 4 of 10. Reports less redness, swelling, and tenderness since staring antibiotic. Denies fever, chills, new swelling, redness, tenderness, or other joint swelling. Hx of thrombocytopenia and takes Xeralto. Last platelets 130. In [facility] on 128. WBC at [facility] on 03/13/2018 5.7 PAST MEDICAL HISTORY Diagnosis Date - ASHD (arteriosclerotic heart disease) 08/12/201709/1997: CABG 3 - Chronic atrial fibrillation (HCC) 08/12/201707/2016: cardioversion in 2016 EF 55% in 2017 - Coronary atherosclerosis of unspecified type of vessel, twenty-nine palms or graft - Diverticulosis of colon (without mention of hemorrhage) - Epididymal cyst 09/08/2011 - Essential hypertension, benign - History of coronary artery bypass surgery - Hydrocele 09/08/2011 - Hyperlipidemia - Hypertrophy of prostate with urinary obstruction and other lower urinary tract symptoms (LUTS) - Internal hemorrhoids without mention of complication - Paroxysmal atrial fibrillation (HCC) - 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 MEDICATIONS Current Outpatient Prescriptions: amiodarone (PACERONE) 200 mg tablet Take by mouth once daily. cephALEXin (KEFLEX) 500 mg capsule Take 500 mg by mouth four times daily. rivaroxaban (XARELTO) 20 mg tablet Take 20 mg by mouth once daily. isosorbide mononitrate ER (IMDUR) 30 mg 24 hr tablet Take 2 tablets by mouth once daily. furosemide (LASIX) 40 mg tablet Take 1 tablet by mouth once daily. metoprolol succinate ER (TOPROL XL) 25 mg 24 hr tablet Take 1/2 tablet twice daily aspirin, enteric coated (ADULT LOW DOSE ASPIRIN) 81 mg EC tablet Take 1 tablet by mouth once daily. losartan (COZAAR) 100 mg tablet Take 0.5 tablets by mouth once daily. Lovastatin 40 mg ORAL tablet Take 1 tablet by mouth daily with dinner. CENTRUM SILVER TAB Take one(1) tablet daily. No current facility-administered medications for this visit. Medications and allergies reviewed by this provider. SOCIAL HISTORY Social History Marital status: Spouse name: Emmanuelle Years of education: Number of children: 3 Occupational History Occupation Employer Comment [employer]* Social History Main Topics Smoking status: Never Smoker Smokeless tobacco: Never Used Alcohol use: No Drug use: No REVIEW OF SYSTEMS All other reviewed and negative other than HPI. OBJECTIVE: BP 104/58 (BP Site: Left Arm, BP Position: Sitting, BP Cuff Size: Large Adult) Pulse 64 Resp 18 Wt 105.3 kg (232 lb 0.6 oz) BMI 36.34 kg/m? . Vital signs reviewed by this provider. APPEARANCE Well appearing, alert, in no acute distress, well- hydrated, well nourished. HEART RRR with normal S1 and S2, no murmurs, no gallops, no JVD appreciated LUNG clear to auscultation EXTREMITIES No deformities and Normal pulses bilaterally.Ecchymosis almost completely resolved- small amount nright upper medial thigh. Erythema and mild warmth to right dominguez. 2-3+ edema from right knee to top of foot. Cap refill WNL Leg measurements Right calf: 16.75 inches Right tibial tuberosity: 17 inches Left Calf:14 inches Left tibial tuberosity: 14.75 ASSESSMENT/PLAN: 1. Cellulitis of skin - ICD9: 682.9, ICD10: L03.90 - Continue treatment with Cephalaxin (Keflex) - No lymphangetic streaking, this was defined for patient to watch for and to seek medical care immediately if appears - Area of cellulitis defined with pen, seek further attention if this area continues to enlarge - encouraged to elevate leg above heart level when sitting. Has compression hose he can wear- reports wore them yesterday and thought they made swelling worse - Follow up for recheck in Wednesday Pari Draper APRN.CNP Prescription instructions reviewed with patient as applicable. Patient advised if symptoms do not improve or if symptoms worsen sooner, to contact their primary care physician. Potential red flag symptoms discussed with the patient. Reviewed appropriate action plan to take if red flag symptoms occur. Patient agreeable to treatment plan. Pari Draper APRN.CNP 03/17/2018 10:47 AM Signed If you develop fevers, chills, increasing redness, swelling, warmth call office- if appointment unavailable go to ER Referring Provider: PARI DRAPER (GUANAKO) [[id number]] Allergies As of Date: 03/17/2018 (No Known Allergies) Date Reviewed: 03/17/2018 Reviewed by: Chelsie Mansfield LPN - Fully Assessed Reason for Visit: Recheck [92] Cmt: on rt knee, wednesday night was much more red and painful went to [facility] er was placed on cephalexin 500mg Primary Visit Diagnosis:Cellulitis of skin [L03.90] Prescriptions as of 03/17/2018 Sig: AMIODARONE 200 MG TABLET Take by mouth once daily. CEPHALEXIN 500 MG CAPSULE Take 500 mg by mouth four yaneli* RIVAROXABAN 20 MG TABLET Take 20 mg by mouth once lisa* ISOSORBIDE MONONITRATE ER 30 * Take 2 tablets by mouth once * FUROSEMIDE 40 MG TABLET Take 1 tablet by mouth once d* METOPROLOL SUCCINATE ER 25 MG* Take 1/2 tablet twice daily ASPIRIN 81 MG TABLET,DELAYED * Take 1 tablet by mouth once d* LOSARTAN 100 MG TABLET Take 0.5 tablets by mouth onc* * LOVASTATIN 40 MG TABLET Take 1 tablet by mouth daily * * CENTRUM SILVER TABLET Take one(1) tablet daily. Problem List As Of Date 03/17/2018 Noted Resolved BENIGN HYPERTENSION [I10] INVALID FOR* 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 ASHD (arteriosclerotic heart disease) [I25.10] INVALID FOR* More... Chronic atrial fibrillation (HCC) [I48.2] INVALID FOR* More... Other instructions from your clinician: If you develop fevers, chills, increasing redness, swelling, warmth call office- if appointment unavailable go to ER Encounter Status:Closed by PARI DRAPER CNP on 03/21/18 EMERGENCY DEPARTMENT Observed: 03/13/2018 Status: F Source: [place] SUMMARY 10:20 PM [facility] [place] [facility] Medical Records Department [address] [place] [address] Emergency Department Summary 03/13/182021 MR#: [id number] Acct: [id number] Name: JORGE ALAS Rep #: [id number] : 1935 82 From: Joanna Cruz MD PCP: Jaspreet Shine III, MD Status: DEP ER - ER Visit Summary Date of Service: 03/13/18 Chief Complaint: Right lower extremity cellulitis History of Present Illness: The patient is a 82 M currently on Xarelto and aspirin. Patient states he was working on his hands and knees 2 weeks ago. He developed swelling, bruising, and redness to the right lower extremity. He was seen at his PCPs office last week. Labs and a venous ultrasound were obtained. Patient presents with continued symptoms. He does have erythema over the anterior dominguez that is warm to the touch. Physical Examination: Vital signs unremarkable. Patient sitting upright in bed no acute distress. He is nontoxic appearing. Heart is regular. Lungs are clear. Abdomen is soft nontender. Right lower external examination was ecchymosis on the medial right thigh and on the medial lower leg. Thigh is not tense. He has 3+ edema. There is erythema and warmth over the right anterior dominguez consistent with cellulitis. 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 His hemoglobin is 12.0 and his platelet count is 128,000. This is compared to labs on March 08 at [facility] where his hemoglobin was 12.7 and his platelet count was 130,000. Emergency Department Course and Treatment: At this time patient be treated with a course of Keflex for skin infection. He has in a follow-up appointment scheduled this coming week. Treatment Plan: [] Disposition: Discharge Impression: Cellulitis right lower extremity This note was generated with [employer] dictation software. It may contain incorrect words, spelling, and punctuation that were not noted in review of the chart prior to signing ED Disposition - Plan for ED Patient: Chief Complaint: Cellulitis Referrals: Jaspreet Shine III, MD [Primary Care Provider] - What to do if you have Problems For any increased pain, shortness of breath, bleeding, nausea or vomiting, chest pain, or any unexpected problems, contact your Primary Care Provider. Call [facility] ([phone]) or report to the closest Emergency Room. Call 911 if necessary. 03/13/180 <Electronically signed by Joanna Cruz MD> Date Joanna Cruz MD Cosigner Signature (If Indicated): Date CC: Jaspreet Shine III, MD DISCHARGE INSTRUCTION Observed: 03/13/2018 Status: F Source: [place] 8:25 PM [facility] [place] [facility] Medical Records Department [address] [place] [address] Discharge Instruction 03/13/182023 MR#: [id number] Acct: [id number] Name: JORGE ALAS Rep #: [id number] : 1935 82 From: Joanna Cruz MD PCP: Jaspreet Shine III, MD Status: REG ER ED Disposition - Plan for ED Patient: Disposition: Home or Assisted Living Chief Complaint: Cellulitis Instructions: ED Staph Infec Abx Tx Only Prescriptions: Cephalexin [Keflex] 500 mg PO Q6 #40 capsule Referrals: Jaspreet Shine III, MD [Primary Care Provider] - Keep George appointment What to do if you have Problems For any increased pain, shortness of breath, bleeding, nausea or vomiting, chest pain, or any unexpected problems, contact your Primary Care Provider. Call [facility] ([phone]) or report to the closest Emergency Room. Call 911 if necessary. 03/13/182024 <Electronically signed by Joanna Cruz MD> Date Joanna Cruz MD Cosigner Signature (If Indicated): Date CC: Jaspreet Shine III, MD CBC W/DIFF, AUTOMATED Collected: 03/13/2018 Status: F Source: [place] 7:23 PM [facility] [place] TYPE CODE TESTS RESULT OUT OF RANGE REFERENCE UNITS LAB L100.1000 4.4-11.0 K/mm3 Normal WBC 5.7 LAB L100.1200 4.6-6.2 M/mm3 Low RBC 3.82 LAB L100.1300 13.0-16.5 g/dl Low HGB 12.0 LAB L100.1400 40-54 % Low HCT 36.3 LAB L100.1500 80-94 fL High MCV 95.0 LAB L100.1600 27.0-32.0 pg Normal MCH 31.4 LAB L100.1700 32-36 g/gl Normal MCHC 33.1 LAB L100.1810 11.6-14.6 % Normal RDW CV 14.4 LAB L100.1820 35.1-43.9 fl High RDW SD 49.4 LAB L100.1900 150-450 K/mm3 Low PLT 128 LAB L100.2000 6.2-12.0 fl Normal MPV 9.2 LAB L100.2100 47-70 % Normal NEUT% 68.3 LAB L100.2200 19-41 % Normal LY% 20.7 LAB L100.2300 0-10 % Normal MONO% 9.7 LAB L100.2400 0-5 % Normal EO% 0.9 LAB L100.2500 0-1 % Normal BASO% 0.2 LAB L100.2550 0.0-0.9 % Normal IM GRAN % 0.200 Result Comment: IG% - Immature Granulocytes (promyelocytes, myelocytes and metamyelocytes) > 1% indicates that a LEFT SHIFT is Present. LAB L100.2620 2.0-7.7 X10 3/uL Normal Absolute Neut 3.9 LAB L100.2720 0.83-4.51 X10 3/ul Normal Absolute Lymph 1.17 Performed By: #### L100.0100 #### [facility] [address] [place], [address] XR KNEE 2V AP/LAT Observed: 03/08/2018 Status: F Source: [place] RT 1:00 PM [facility] REPOSITORY * * *Final Report* * * DATE OF EXAM: Mar 08 2018 1:00PM WRX [id number] - XR KNEE 2V AP/LAT RT / PROCEDURE REASON: multiple diagnoses * * * * Physician Interpretation * * * * EXAM: KNEES AP STANDING and right knee Indication: Pain Procedure: Single AP weight-bearing views of the right and left knee, and lateral right knee. Findings: Bilateral medial joint space narrowing. Left more severe than right. Left medial joint space [id number] Minimal osteophyte formation.There is no evidence for fracture or subluxation. Patellofemoral joint space narrowing. No suprapatellar effusion.. Tendon calcifications (enthesophytes), osteophyte formation)) surgical clips posterior medial to the right knee.. Soft tissue swelling anterior to the knee IMPRESSION: Osteoarthritis. No acute digital account director: PSCB Transcribe Date/Time: Mar 08 2018 10:58P Dictated by : MATTHEW CHAN DO This examination was interpreted and the report reviewed and electronically signed by: MATTHEW CHAN DO on Mar 08 2018 11:00PM EST [id number] PROGRESS Observed: 03/08/2018 Status: COMPLETED Source: [place] 12:54 PM [facility] REPOSITORY HNO ID: [id number] Author: Elisha Cisse (Rt) Tati Fox Service: (none) Author Type: Electrophysiologist Type: Progress Notes Filed: 03/08/2018 1:00 PM Note Text: Radiology Service Progress Note PATIENT NAME: Jorge Alas DATE OF SERVICE: March 08, 2018 TIME: 12:54 PM PATIENT IDENTITY VERIFICATION COMPLETED USING TWO (2) METHODS: Patient confirmed name verbally and Date of . PATIENT GENDER DATA: Male PATIENT RELEVANT IMPLANT DATA REVIEWED: Not Applicable RADIOLOGY DEPARTMENT: General X-ray: Exam(s) Completed: Lower Extremity X-Ray(s): Knee, AP / LAT Right: PERIPHERAL IV DATA: Not applicable SIGNED BY: RT Kolton March 08, 2018 12:54 PM MARIA A CBC AND DIFF Collected: 03/08/2018 Status: F Source: [place] 10:19 AM [facility] REPOSITORY TYPE CODE TESTS RESULT OUT OF REFERENCE UNITS RANGE LAB WWBC 3.70-11.00 k/uL Maria A WBC 7.87 LAB WRBC 4.20-6.00 m/uL Low Maria A RBC 3.96 LAB WHGB 13.0-17.0 g/dL Low Maria A Hemoglobin 12.7 LAB WHCT 39.0-51.0 % Low Maria A Hematocrit 38.7 LAB WMCV 80.0-100.0 fL Maria A MCV 97.7 LAB WMCH 26.0-34.0 pg [place] MCH 32.1 LAB WMCHC 30.5-36.0 g/dL Maria A MCHC 32.8 LAB WRDW 11.5-15.0 % [place] RDW 14.6 LAB WPLT 150-400 k/uL Low Maria A Platelet Cnt 130 LAB WMPV 9.0-12.7 fL Maria A MPV 9.7 Result Comment: Test performed by: [facility] Maria A, [address] [place], [place] [address]. LAB WNEUT % Maria A Neut% 68.6 LAB WLYMP % Mraia A Lymp% 23.3 LAB WMONOC % [place]% 7.5 LAB WEOS % Maria A Eos% 0.5 LAB WBASO % [place] Baso% 0.1 LAB WANEUT 1.45-7.50 k/uL Maria A Abs Neut 5.40 LAB WALYMP 1.00-4.00 k/uL Maria A Abs Lymp 1.83 LAB WAMONO <0.87 k/uL [place] Abs Madison 0.59 LAB WAEOS <0.46 k/uL Maria A Abs Eos 0.04 LAB WABASO <0.11 k/uL Maria A Abs Baso <0.03 CNOV Observed: 03/08/2018 Status: COMPLETED Source: [place] 9:40 AM [facility] REPOSITORY Office Visit (FAMPWS) JORGE ALAS ([id number]) 1935 M Date Time Provider Department 03/08/18 9:40 AM PARI DRAPER (GUANAKO) FAMPWS During your visit today, we recorded the following information about you: Pulse Respiration Blood pressure Weight 60/minute 16/minute 110/52 104.4 kg Pari Draper APRN.CNP 03/09/2018 3:48 PM Signed 03/08/2018 Patient presents with: Knee Pain: states a week ago was kneeling down was on small stone. Since then swelling, bruising noted.Tender to touch and walk on ir SUBJECTIVE: This is a 82 year old that is here today for Above Complaints. About 1 week ago was kneeling down and knelt on a stone. Approximately three days ago observed swelling to right knee, right lower leg, and bruising. Has sharp intermittent pain with standing and walking. No pain while sitting. Has been elevating and using ice with minimal relief. Positive for being on Xeralto And ASA for A-fib, hx of thrombocytopenia .Denies fever, chills, new SOB, dyspnea, chest pain, knee redness or warmth, other joint swelling. Modified Wells Rule for DVT (1pt each) - active cancer (tx or palliation in last 6mo)= 0 - paralysis, paresis or recent leg casting= 0 - bedridden >3D/major surgery w/in 4 wks= 0 - localized tenderness along deep venous system= 0 - entire ext swollen= 1 - unilateral calf swelling >3cm below Tibial tuberosity= 1 - unilateral pitting edema= 1 - prominent non-varicose collateral superficial veins= 0 Score -2 if alt dx as likely as DVT= Score Total: 3 Pretest probabilty: High >= 3, Intermediate 1-2, Low 0 PAST MEDICAL HISTORY Diagnosis Date - ASHD (arteriosclerotic heart disease) 08/12/201709/1997: CABG 3 - Chronic atrial fibrillation (HCC) 08/12/201707/2016: cardioversion in fall, 2016 EF 55% in 2017 - Coronary atherosclerosis of unspecified type of vessel, twenty-nine palms or graft - Diverticulosis of colon (without mention of hemorrhage) - Epididymal cyst 09/08/2011 - Essential hypertension, benign - History of coronary artery bypass surgery - Hydrocele 09/08/2011 - Hyperlipidemia - Hypertrophy of prostate with urinary obstruction and other lower urinary tract symptoms (LUTS) - Internal hemorrhoids without mention of complication - Paroxysmal atrial fibrillation (HCC) - 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 MEDICATIONS Current Outpatient Prescriptions: rivaroxaban (XARELTO) 20 mg tablet Take 20 mg by mouth once daily. isosorbide mononitrate ER (IMDUR) 30 mg 24 hr tablet Take 2 tablets by mouth once daily. metoprolol succinate ER (TOPROL XL) 25 mg 24 hr tablet Take 1/2 tablet twice daily aspirin, enteric coated (ADULT LOW DOSE ASPIRIN) 81 mg EC tablet Take 1 tablet by mouth once daily. losartan (COZAAR) 100 mg tablet Take 0.5 tablets by mouth once daily. Lovastatin 40 mg ORAL tablet Take 1 tablet by mouth daily with dinner. CENTRUM SILVER TAB Take one(1) tablet daily. furosemide (LASIX) 40 mg tablet Take 1 tablet by mouth once daily. No current facility-administered medications for this visit. Medications and allergies reviewed by this provider. SOCIAL HISTORY Social History Marital status: Spouse name: Emmanuelle Years of education: Number of children: 3 Occupational History Occupation Employer Comment [employer]* Social History Main Topics Smoking status: Never Smoker Smokeless tobacco: Never Used Alcohol use: No Drug use: No REVIEW OF SYSTEMS GENERAL: No weight loss, malaise or fevers RESPIRATORY: Negative for cough, hemoptysis, wheezing, COPD, dyspnea or shortness of breath CARDIOVASCULAR: Negative for chest pain, leg swelling, hypertension, CHF or palpitations MUSCULOSKELETAL: See HPI SKIN: Negative for lesions, rash, and itching HEMATOLOGY/LYMPHOLOGY: See HPI All other reviewed and negative other than HPI. OBJECTIVE: BP 110/52 (BP Site: Left Arm, BP Position: Sitting, BP Cuff Size: Large Adult) Pulse 60 Resp 16 Wt 104.4 kg (230 lb 1.3 oz) BMI 36.04 kg/m? . Vital signs reviewed by this provider. APPEARANCE Well appearing, alert, in no acute distress, well- hydrated, well nourished. and Overweight HEART RRR with normal S1 and S2, no murmurs, no gallops, no JVD appreciated LUNG clear to auscultation. No wheezes, rhonchi, or rales EXTREMITIES Normal pulses bilaterally. Right lower leg with ecchymosis to right lateal malleolus, right shni, behind right knee, and right knee. 1-2+ pitting edema to RLE. Right calf 16 inches and16 inches at tibial tuberosity. Left calf 14 inches. and 15 inches at tibial tuberosity. 2+ pedal pulses bilateral with cap refill WNL. LArge healed scar to right medial leg from previous bypass surgery Negative Homans Right knee : ecchymosis , tenderness and swelling. Effusion under patella TTP. No redness or warmth observed FROM. ASSESSMENT/PLAN: 1. Right leg swelling - ICD9: 729.81, ICD10: M79.89 (primary diagnosis) - consider DVT- - US DVT LOWER RT- today - follow-up pending results 2. Pain and swelling of right knee - ICD9: 719.46, 719.06, ICD10: M25.561, M25.461 - effusion- question with thrombocytopenia and being anticoagulated if collection of blood - discussed if pain and swelling increases should go to ER - XR KNEE LIMITED 2V AP/LAT RT 3. Ecchymosis - ICD9: 459.89, ICD10: R58 - possibly d/t hx thrombocytopenia and anticoagulation therapy - MARIA A CBC AND DIFF Pari Podlogar, EMBOSSING TOOLSETTER.TELETYPE ADJUSTER Prescription instructions reviewed with patient as applicable. Patient advised if symptoms do not improve or if symptoms worsen sooner, to contact their primary care physician. Potential red flag symptoms discussed with the patient. Reviewed appropriate action plan to take if red flag symptoms occur. Patient agreeable to treatment plan. Pari Podlogar, EMBOSSING TOOLSETTER.GUANAKO 03/08/2018 9:55 AM Signed If you develop fever, hotness to touch, redness of knee, increased swelling or pain go to ER Referring Provider: SELF [200] Allergies As of Date: 03/08/2018 (No Known Allergies) Date Reviewed: 03/08/2018 Reviewed by: Chelsie Mansfield LPN - Fully Assessed Reason for Visit: Knee Pain [132] Cmt: states a week ago was kneeling down was on small stone. Since then swelling, bruising noted.Tender to touch and walk on ir Primary Visit Diagnosis:Right leg swelling [M79.89] Other Visit Diagnoses:Pain and swelling of right knee [M25.561, M25.461] Ecchymosis [R58] Order(s):XR KNEE LIMITED 2V AP/LAT RT [[id number]] Order #: [id number] FUTURE MARIA A CBC AND DIFF [SQWCBCDF] Order #: [id number] FUTURE US DVT LOWER RT [[id number]] Order #: [id number] FUTURE Prescriptions as of 03/08/2018 Sig: RIVAROXABAN 20 MG TABLET Take 20 mg by mouth once lisa* ISOSORBIDE MONONITRATE ER 30 * Take 2 tablets by mouth once * METOPROLOL SUCCINATE ER 25 MG* Take 1/2 tablet twice daily ASPIRIN 81 MG TABLET,DELAYED * Take 1 tablet by mouth once d* LOSARTAN 100 MG TABLET Take 0.5 tablets by mouth onc* * LOVASTATIN 40 MG TABLET Take 1 tablet by mouth daily * * CENTRUM SILVER TABLET Take one(1) tablet daily. FUROSEMIDE 40 MG TABLET Take 1 tablet by mouth once d* Problem List As Of Date 03/08/2018 Noted Resolved BENIGN HYPERTENSION [I10] INVALID FOR* 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 ASHD (arteriosclerotic heart disease) [I25.10] INVALID FOR* More... Chronic atrial fibrillation (HCC) [I48.2] INVALID FOR* More... Other instructions from your clinician: If you develop fever, hotness to touch, redness of knee, increased swelling or pain go to ER Encounter Status:Closed by PODLOGARPARI CNP on 03/09/18 PROGRESS Observed: 03/08/2018 Status: COMPLETED Source: [place] 9:38 AM [facility] REPOSITORY O ID: [id number] Author: Pari Ellington) Podlogar Service: (none) Author Type: Nurse Practitioner Type: Progress Notes Filed: 03/09/2018 3:48 PM Note Text: 03/08/2018 Patient presents with: Knee Pain: states a week ago was kneeling down was on small stone. Since then swelling, bruising noted.Tender to touch and walk on ir SUBJECTIVE: This is a 82 year old that is here today for Above Complaints. About 1 week ago was kneeling down and knelt on a stone. Approximately three days ago observed swelling to right knee, right lower leg, and bruising. Has sharp intermittent pain with standing and walking. No pain while sitting. Has been elevating and using ice with minimal relief. Positive for being on Xeralto And ASA for A-fib, hx of thrombocytopenia .Denies fever, chills, new SOB, dyspnea, chest pain, knee redness or warmth, other joint swelling. Modified Wells Rule for DVT (1pt each) - active cancer (tx or palliation in last 6mo)= 0 - paralysis, paresis or recent leg casting= 0 - bedridden >3D/major surgery w/in 4 wks= 0 - localized tenderness along deep venous system= 0 - entire ext swollen= 1 - unilateral calf swelling >3cm below Tibial tuberosity= 1 - unilateral pitting edema= 1 - prominent non-varicose collateral superficial veins= 0 Score -2 if alt dx as likely as DVT= Score Total: 3 Pretest probabilty: High >= 3, Intermediate 1-2, Low 0 PAST MEDICAL HISTORY Diagnosis Date - ASHD (arteriosclerotic heart disease) 08/12/201709/1997: CABG 3 - Chronic atrial fibrillation (HCC) 08/12/201707/2016: cardioversion in 2016 EF 55% in 2017 - Coronary atherosclerosis of unspecified type of vessel, twenty-nine palms or graft - Diverticulosis of colon (without mention of hemorrhage) - Epididymal cyst 09/08/2011 - Essential hypertension, benign - History of coronary artery bypass surgery - Hydrocele 09/08/2011 - Hyperlipidemia - Hypertrophy of prostate with urinary obstruction and other lower urinary tract symptoms (LUTS) - Internal hemorrhoids without mention of complication - Paroxysmal atrial fibrillation (HCC) - 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 MEDICATIONS Current Outpatient Prescriptions: rivaroxaban (XARELTO) 20 mg tablet Take 20 mg by mouth once daily. isosorbide mononitrate ER (IMDUR) 30 mg 24 hr tablet Take 2 tablets by mouth once daily. metoprolol succinate ER (TOPROL XL) 25 mg 24 hr tablet Take 1/2 tablet twice daily aspirin, enteric coated (ADULT LOW DOSE ASPIRIN) 81 mg EC tablet Take 1 tablet by mouth once daily. losartan (COZAAR) 100 mg tablet Take 0.5 tablets by mouth once daily. Lovastatin 40 mg ORAL tablet Take 1 tablet by mouth daily with dinner. CENTRUM SILVER TAB Take one(1) tablet daily. furosemide (LASIX) 40 mg tablet Take 1 tablet by mouth once daily. No current facility-administered medications for this visit. Medications and allergies reviewed by this provider. SOCIAL HISTORY Social History Marital status: Spouse name: Emmanuelle Years of education: Number of children: 3 Occupational History Occupation Employer Comment [employer]* Social History Main Topics Smoking status: Never Smoker Smokeless tobacco: Never Used Alcohol use: No Drug use: No REVIEW OF SYSTEMS GENERAL: No weight loss, malaise or fevers RESPIRATORY: Negative for cough, hemoptysis, wheezing, COPD, dyspnea or shortness of breath CARDIOVASCULAR: Negative for chest pain, leg swelling, hypertension, CHF or palpitations MUSCULOSKELETAL: See HPI SKIN: Negative for lesions, rash, and itching HEMATOLOGY/LYMPHOLOGY: See HPI All other reviewed and negative other than HPI. OBJECTIVE: BP 110/52 (BP Site: Left Arm, BP Position: Sitting, BP Cuff Size: Large Adult) Pulse 60 Resp 16 Wt 104.4 kg (230 lb 1.3 oz) BMI 36.04 kg/m? . Vital signs reviewed by this provider. APPEARANCE Well appearing, alert, in no acute distress, well-hydrated, well nourished. and Overweight HEART RRR with normal S1 and S2, no murmurs, no gallops, no JVD appreciated LUNG clear to auscultation. No wheezes, rhonchi, or rales EXTREMITIES Normal pulses bilaterally. Right lower leg with ecchymosis to right lateal malleolus, right shni, behind right knee, and right knee. 1-2+ pitting edema to RLE. Right calf 16 inches and16 inches at tibial tuberosity. Left calf 14 inches. and 15 inches at tibial tuberosity. 2+ pedal pulses bilateral with cap refill WNL. LArge healed scar to right medial leg from previous bypass surgery Negative Homans Right knee : ecchymosis , tenderness and swelling. Effusion under patella TTP. No redness or warmth observed FROM. ASSESSMENT/PLAN: 1. Right leg swelling - ICD9: 729.81, ICD10: M79.89 (primary diagnosis) - consider DVT- - US DVT LOWER RT- today - follow-up pending results 2. Pain and swelling of right knee - ICD9: 719.46, 719.06, ICD10: M25.561, M25.461 - effusion- question with thrombocytopenia and being anticoagulated if collection of blood - discussed if pain and swelling increases should go to ER - XR KNEE LIMITED 2V AP/LAT RT 3. Ecchymosis - ICD9: 459.89, ICD10: R58 - possibly d/t hx thrombocytopenia and anticoagulation therapy - [place] CBC AND DIFF Pari Podlogar, EMBOSSING TOOLSETTER.TELETYPE ADJUSTER Prescription instructions reviewed with patient as applicable. Patient advised if symptoms do not improve or if symptoms worsen sooner, to contact their primary care physician. Potential red flag symptoms discussed with the patient. Reviewed appropriate action plan to take if red flag symptoms occur. Patient agreeable to treatment plan. CARDIOLOGY VISIT Observed: 01/20/2018 Status: F Source: [place] REPORT 9:25 PM [facility] [place] [facility] [address] [place] [address] OFFICE VISIT Date of Service: 01/13/18 MR#: [id number] Acct: [id number] Name: JORGE ALAS Rep #: [id number] : 1935 Provider: Vance Russ MD Age/Sex: 82/M [place] [facility] [place] Signed HPI HPI Chief Complaint: Follow-up visit. Details: JORGE ALAS, is a 82 M who presents to the office today for a follow-up visit. He is a gentleman with a history of coronary artery disease status post carotid bypass surgery paroxysmal atrial fibrillation hypertension and hyperlipidemia. He returns for a routine follow-up visit. You do remember he underwent bypass surgery with a left internal mammary artery to the left anterior descending artery, saphenous vein graft to circumflex artery and to the right coronary artery. He says that he does have some fatigue and occasional shortness of breath with activity but otherwise he has had no neck arm or jaw discomfort suggest angina no dizziness or diaphoresis no near syncope or syncope. He has been compliant with his medications. Intake Intake Visit Reasons: 6 M FU Allergies No Known Allergies Allergy (Verified 11/10/17 10:18) Medications Lovastatin [Mevacor] 40 mg PO QHS 05/24/13 [History Confirmed 11/12/17] Multivit-Min/FA/Lycopene/Lut [Centrum Silver Tablet] 1 tab PO DAILY 05/24/13 [History Confirmed 11/12/17] aspirin 81 mg tablet,delayed release 81 mg PO QDAY 09/03/17 [History Confirmed 11/12/17] isosorbide mononitrate ER 60 mg tablet,extended release 24 hr 60 mg PO QAM 09/03/17 [History Confirmed 11/12/17] losartan 50 mg tablet 25 mg PO QDAY tab 09/03/17 [History Confirmed 11/12/17] metoprolol tartrate 50 mg tablet 50 mg PO BID #180 tab 09/03/17 [Rx Confirmed 11/12/17] amiodarone 200 mg tablet 200 mg PO QDAY #90 tab 10/20/17 [Rx Confirmed 11/12/17] rivaroxaban 20 mg tablet 20 mg PO DAILY #90 tab 10/20/17 [Rx Confirmed 11/15/17] furosemide 40 mg tablet 40 mg PO .COMPLEX 11/27/17 [History] [facility] Medical History Palpitations (Chronic) Hyperlipidemia (Chronic) Hypertension (Chronic) Atherosclerosis of coronary artery of [place] heart without angina pectoris (Chronic) Secondary pulmonary arterial hypertension (Chronic) Paroxysmal atrial fibrillation (Chronic) Chronic diastolic heart failure (Chronic) Shortness of breath (Acute) Surgical History H/O coronary artery bypass surgery (Chronic 09/20/97) History of appendectomy (Chronic) History of left heart catheterization (Chronic 12/12/14) History of thymectomy (Chronic) History of tonsillectomy (Chronic) Hx of cholecystectomy (Chronic) Family History Mother CAD (coronary artery disease) Brother CAD (coronary artery disease) Social History Smoking Status: Never smoker alcohol intake: never substance use type: does not use caffeine: Yes Type: coffee what type of physical activity do you participate in: none seatbelt use: always do you feel safe at home: Yes ROS Const Const: Negative for fatigue, body ache, fever(s), chills, night sweats, daytime sleepiness, difficulty sleeping, excessive sweating, weight gain, weight loss, increased appetite, poor appetite, anorexia, other, frequent falls, headache(s) or weakness Eyes Eyes: Negative for blind spots, loss of peripheral vision, transient loss of vision, change in vision, floaters, tunnel vision, other, blurry vision or double vision ENT ENT: Negative for balance problems, dizziness or headache(s) Cardio Chest Pain: No Resp Respiratory: Positive for SOB with activity and SOB at rest GI GI: Negative nausea, vomiting, heartburn, constipation, belching, bloating, cramping, vomiting blood/hematemesis, bright, red blood in stools, black,tarry stools, loose stools, Difficulty Swallowing or other Musc Musc: Negative for muscle aches/ myalgia, muscle weakness, joint pain or balance problems Neuro Neuro: Negative for dizziness, lightheadedness, near syncope, syncope, orthostatic symptoms, frequent falls, headache(s), weakness, confusion, memory loss, restless legs, blurry vision, double vision, vertigo, seizures, lack of coordination or other Endo Endo: Negative for fatigue or excessive sweating Cardiology Exam Const Appearance: cooperative, healthy appearing, well developed, well groomed and no acute distress Nutritional Appearance: well nourished and average body habitus Orientation: alert, awake and oriented x3 Head Head: normal to inspection, normocephalic and atraumatic Ears: hearing grossly normal bilaterally and external ears normal Nose: external nose normal, nasal mucous membranes and turbinates normal, nares normal, septum normal, no nasal discharge Face and Sinus: face symmetric Mouth: oral mucosae normal, tongue normal, oropharynx normal and moist mucous membranes Teeth and gingiva: dentition normal Throat: posterior oropharynx normal, tonsils normal and uvula midline Eyes General: appearance normal, both eyes and all related structures Eyelids: eyelids normal Conjunctivae: conjunctivae normal Pupils: PERRL, normal by confrontation and accommodation normal EOM: EOM intact bilaterally Neck Neck: normal visual inspection, trachea midline and no JVD JVD: +5 Carotids: normal carotid upstroke and bounding pulses Chest Chest inspection: normal inspection of the chest, symmetric chest movement and normal respiratory effort Auscultation: Bilateral: Clear to Auscultation Cardio Palpation: normal PMI Rate: regular rate Rhythm: regular rhythm Heart sounds: S1 normal, S2 normal and normal, physiologic split S2; negative rub, gallop or murmur GI GI: normal to inspection, soft, no hepatosplenomegaly and bowel sounds present Neuro General: alert, awake, oriented x3, no focal sensory deficit, gait normal and moves all extremities Skin Skin: no rashes or lesions noted Extremities Pulses: Normal: Right Femoral Pulse, Left Femoral Pulse, Right Dorsalis Pedis Pulse, Left Dorsalis Pedis Pulse, Right Posterior Tibial Pulse, Left Posterior Tibial Pulse, Right Radial Pulse, Left Radial Pulse Lower Extremity Edema: None: Bilateral Musculoskel Musculoskeletal: No joint tenderness Psych Psychological: normal affect Assessment AND Plan 1. 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 He did undergo a cardiac catheterization within the last 2 years and it demonstrated patency of his bypass grafts. The plan is to continue him on the current medical therapy without making any changes. 2. Paroxysmal atrial fibrillation I48.0 Plan He does have a history of paroxysmal atrial fibrillation and underwent DC cardioversion in November of this year. He is currently maintained on Xarelto metoprolol and amiodarone and appears to be feeling well and is maintaining sinus rhythm. I would not suggest that we make any changes. 3. Essential hypertension I10 Plan His blood pressure appears to be under good control on the low-dose metoprolol as well as the losartan. No changes will be made with respect to the above as well. Hopefully this should make him feel better. I like to see him again in approximately 3 months to see whether he is maintaining sinus rhythm. Due to computer issues past medical history and medications were not entered at today's visit.. Thank you for allowing me to participate in the care of your patient. Please don't hesitate to call if any issues arise Plan Detail Follow Up 6 Months (jhr) Coding Level of Care Code Off vis,est,level 4 Diagnoses H/O coronary artery bypass surgery Z95.1 Paroxysmal atrial fibrillation I48.0 Essential hypertension I10 Hypertension type: essential hypertension Coding Level of Care Code Off vis,est,level 4 Diagnoses H/O coronary artery bypass surgery Z95.1 Paroxysmal atrial fibrillation I48.0 Essential hypertension I10 Hypertension type: essential hypertension 01/20/182124 <Electronically signed by Vance Russ MD> Date Vance Russ MD Cosigner Signature: Date (if applicable) CC: Jaspreet Shine III, MD BASIC METABOLIC Collected: 12/20/2017 Status: F Source: [place] [facility] PROFILE (BMP) 9:26 AM [facility] Order Comment: Order Date: 06/18/17 Order Info: [id number] - *Hepatic Function Panel Order Info: [id number] - *Lipid Profile CC PCP Comments: 12 hours fasting, may have water. TYPE CODE TESTS RESULT OUT OF RANGE REFERENCE UNITS LAB L501.0100 74-106 mg/dL High GLU 138 Result Comment: Fasting Glucose result greater than or equal to 126 mg/dL suggests DIABETES MELLITUS per A.D.A. criteria. Please note revised GLUCOSE reference range effective 2017. LAB L501.1000 7-18 mg/dL High BUN 28 LAB L501.1100 0.70-1.30 mg/dL High CREAT,SERUM 2.02 Result Comment: The validity of the calculated GFR AND GFRAA in patients over 70 years has not been determined. Clinical correlation is essential. LAB L501.1110 >60 mL/min Low EST GFR 34 Result Comment: Non- GFR Calc LAB L501.1115 >60 mL/min Low EST GFR - AA 41 Result Comment: GFR Calc LAB L501.1300 10-20 RATIO Normal BUN/CRE 13.9 LAB L501.2200 8.5-10.1 mg/dL CA Normal 8.7 LAB L501.5300 136-145 mmol/L NA Normal 140 LAB L501.5600 3.5-5.1 mmol/L K Normal 4.5 LAB L501.5900 98-107 mmol/L CL Normal 106 LAB L501.6100 21.0-32.0 mmol/L Normal CO2 27.0 LAB L501.6200 5-15 Normal GAP 7 Performed By: #### L500.2500 #### [facility] [address], [address] LIVER PROFILE Collected: 12/20/2017 Status: F Source: [place] 9:26 AM [facility] Order Comment: Order Date: 06/18/17 Order Info: [id number] - *Hepatic Function Panel Order Info: [id number] - *Lipid Profile CC PCP Comments: 12 hours fasting, may have water. TYPE CODE TESTS RESULT OUT OF RANGE REFERENCE UNITS LAB L501.1500 6.4-8.2 g/dL Normal T PROT 7.4 LAB L501.1800 3.2-5.0 g/dL Normal ALB 4.0 LAB L501.1950 2.2-4.2 g/dL Normal GLOB 3.4 LAB L501.4100 15-37 U/L Normal AST 20 LAB L501.4305 45-117 U/L Normal ALK P 109 LAB L501.4405 16-61 U/L Normal ALT 25 LAB L501.4600 0.20-1.00 mg/dL High T BILI 1.30 LAB L501.4700 0.00-0.30 mg/dL Normal D BILI 0.23 Performed By: #### L500.3400 #### [facility] [address] [place], [address] LIPID PROFILE Collected: 12/20/2017 Status: F Source: [place] 9:26 AM [facility] Order Comment: Order Date: 06/18/17 Order Info: [id number] - *Hepatic Function Panel Order Info: [id number] - *Lipid Profile CC PCP Comments: 12 hours fasting, may have water. TYPE CODE TESTS RESULT OUT OF RANGE REFERENCE UNITS LAB L501.4900 200 mg/dL Normal CHOL 130 Result Comment: <200 mg/dL Desirable 200-240 mg/dL Borderline >240 mg/dL High Risk LAB L501.5000 mg/dL Normal TRIG 108 Result Comment: The drugs N-Acetylcysteine and Metamizole may falsely depress this assay. Serum Triglycerides Reference Interval Normal <150 mg/dL Borderline high 150 - 199 mg/dL High 200 - 499 mg/dL Very High > or = 500 mg/dL LAB L501.6400 mg/dL Low HDL 39 Result Comment: The drugs N-Acetylcysteine and Metamizole may falsely depress this assay. Reference Range HDL <40 mg/dL Low HDL Cholesterol HDL >or= 60 mg/dL High HDL Cholesterol LAB L501.6500 0-130 mg/dL Normal LDL 69 LAB L501.6600 5-40 mg/dL Normal VLDL 22 Performed By: #### L500.4100 #### [facility] [address], [address] OFFICE VISIT REPORT Observed: 11/30/2017 Status: F Source: [place] 9:26 AM [facility] [address] [address] OFFICE VISIT Date of Service: 11/22/17 MR#: [id number] Acct: [id number] Patient: JORGE ALAS Rep #: [id number] : 1935 Provider: Vance Russ MD Age/Sex: 82/M [place] [facility] [place]: Signed Intake Vital Signs11/22/17 Blood Pressure 122/70 Intake Visit Reasons: 1 wk post DCCV Allergies No Known Allergies Allergy (Verified 11/10/17 10:18) Medications Lovastatin [Mevacor] 40 mg PO QHS 05/24/13 [History Confirmed 11/12/17] Multivit-Min/FA/Lycopene/Lut [Centrum Silver Tablet] 1 tab PO DAILY 05/24/13 [History Confirmed 11/12/17] aspirin 81 mg tablet,delayed release 81 mg PO QDAY 09/03/17 [History Confirmed 11/12/17] isosorbide mononitrate ER 60 mg tablet,extended release 24 hr 60 mg PO QAM 09/03/17 [History Confirmed 11/12/17] losartan 50 mg tablet 25 mg PO QDAY tab 09/03/17 [History Confirmed 11/12/17] metoprolol tartrate 50 mg tablet 50 mg PO BID #180 tab 09/03/17 [Rx Confirmed 11/12/17] amiodarone 200 mg tablet 200 mg PO QDAY #90 tab 10/20/17 [Rx Confirmed 11/12/17] rivaroxaban 20 mg tablet 20 mg PO DAILY #90 tab 10/20/17 [Rx Confirmed 11/15/17] furosemide 40 mg tablet 40 mg PO .COMPLEX 11/27/17 [History] Assessment AND Plan Orders Orders: Nursing Note Patient here for post DCCV ekg: he is in sinus bradycardia, HR 52. He does have pitting edema in lower legs and dyspnea. Reviewed with Charlie Siddiqi: Metoprolol to be decreased to 25 mg po bid, remain on Amio, and increase Lasix to 80 in am, 40 in pm x 3 days, then resume 40 mg bid. Pt to have bmp on Wednesday. 11/30/17925 <Electronically signed by Vance Russ MD> Date Vance Russ MD Cosigner Signature: Date (if applicable) CC: Radhika Mcfarland BASIC METABOLIC Collected: 11/26/2017 Status: F Source: [place] [facility] PROFILE (BMP) 1:27 PM [facility] TYPE CODE TESTS RESULT OUT OF RANGE REFERENCE UNITS LAB L501.0100 74-106 mg/dL High GLU 127 Result Comment: Fasting Glucose result greater than or equal to 126 mg/dL suggests DIABETES MELLITUS per A.D.A. criteria. Please note revised GLUCOSE reference range effective 2017. LAB L501.1000 7-18 mg/dL High BUN 31 LAB L501.1100 0.70-1.30 mg/dL High CREAT,SERUM 2.12 Result Comment: The validity of the calculated GFR AND GFRAA in patients over 70 years has not been determined. Clinical correlation is essential. LAB L501.1110 >60 mL/min Low EST GFR 32 Result Comment: Non- GFR Calc LAB L501.1115 >60 mL/min Low EST GFR - AA 39 Result Comment: GFR Calc LAB L501.1300 10-20 RATIO Normal BUN/CRE 14.6 LAB L501.2200 8.5-10.1 mg/dL Low CA 8.2 LAB L501.5300 136-145 mmol/L NA Normal 142 LAB L501.5600 3.5-5.1 mmol/L K Normal 4.0 LAB L501.5900 98-107 mmol/L CL Normal 105 LAB L501.6100 21.0-32.0 mmol/L Normal CO2 27.0 LAB L501.6200 5-15 Normal GAP 10 Performed By: #### L500.2500 #### [facility] [address] [place], [address] 12 LEAD EKG PERFORMED Observed: 11/22/2017 Status: F Source: [place] BY BMS 9:56 AM [facility] [address] [place] [address] 12 Lead EKG performed by [facility] 11/22/17954 MR#: [id number] Acct: [id number] Name: JORGE ALAS Rep #: [id number] : 1935 82 From: Vance Russ MD Attending Dr: Vance Russ MD Status: DEP AMB Ordering Dr: Vance Russ MD Date: 11/22/17 [place] [facility] [place]: M C Admitted: BMS/12 Lead EKG performed by [facility] ECG Report Interpretation Atrial Bradycardia P:QRS - 1:1, Abnormal P axis, H Rate 52BORDERLINE RHYTHMElectronically signed on 11/23/2017 at 08:41 by Vance Russ 11/23/17840 Date Vance Russ MD CC: Jaspreet Shine III, MD Date Dictated: 11/22/17954 Date Transcribed: 11/22/17954 Kiln Car Unloader: [place] Signed OPERATIVE REPORT Observed: 11/15/2017 Status: F Source: [place] A 12:48 PM [facility] Medical Records Department [address] [place] [address] Operative Report 11/15/17 1245 MR#: [id number] Acct: [id number] Name: JORGE ALAS Rep #: [id number] : 1935 82 From: Berto Allen DO PCP: Jaspreet Shine III, MD Status: REG SDC Y Location: [facility] Operative Report Date of Procedure: 11/15/17 CONSCIOUS SEDATION REPORT DATE OF SERVICE: November 15, 2017 BRIEF HISTORY OF PRESENT ILLNESS: The patient is an 82-year-old male who presented to [facility] for an elective outpatient cardioversion due to underlying atrial fibrillation. The patient's most recent surface echocardiogram revealed ejection fraction of 55%. The patient has undergone previous cardioversions, most recently as August 2016. The patient is currently anticoagulated on Xarelto. He denies a previous history of anesthetic complication and has no known drug allergies. The patient denies a history of obstructive sleep apnea or COPD. PHYSICAL EXAMINATION: VITAL SIGNS: Reviewed and were acceptable. GENERAL: The patient is a male, in no apparent distress, speaking in full sentences. HEENT: Normocephalic, atraumatic. Mucous membranes are moist and pink. Good mouth opening noted. Trachea is midline. Good neck mobility. CHEST: S1, S2 irregularly irregular. No murmurs, rubs or gallops were noted. LUNGS: Clear to auscultation bilaterally without appreciable wheezes, rales or rhonchi. ABDOMEN: Soft, nontender, nondistended. Positive bowel sounds. EXTREMITIES: There is no clubbing, cyanosis or edema. ASA Class: II DESCRIPTION OF PROCEDURE: After confirmation of informed consent, the patient's anesthesia plan was reviewed in detail. Propofol was chosen. Risks and benefits were reviewed and the patient agreed to proceed. At 1209, the patient was given 40 mg of propofol. The patient achieved an appropriate level of sedation and was given a 200 joule synchronized cardioversion by Dr. Russ at the bedside. This was successful in achieving normal sinus rhythm. The patient was monitored until 1219, at which time he reached his baseline mental status and function. The patient tolerated the procedure well. COMPLICATIONS: None ESTIMATED BLOOD LOSS: None RECOMMENDATIONS: Okay to recover in usual fashion. Code Visit 9xxxx: Other Procedure See Report 11/15/17 1248 <Electronically signed by Berto Allen DO> Date Berto Allen DO CC: Vance Russ MD; Berto Allen D.O.; Jaspreet Shine III, MD Signed OPERATIVE REPORT Observed: 11/15/2017 Status: F Source: [place] 12:18 PM [facility] Medical Records Department [address] [place] [address] Operative Report 11/15/171216 MR#: [id number] Acct: [id number] Name: JORGE ALAS Rep #: [id number] : 1935 82 From: Vance Russ MD PCP: Jaspreet Shine III, MD Status: REG SDC Y Location: [facility] Operative Report Date of Procedure: 11/15/17 Elective DC cardioversion. Indication: Persistent symptomatic atrial fibrillation. Procedure: Patient is an 82-year-old man with a history of symptomatic atrial fibrillation who has been anticoagulated with Xarelto for at least 4 weeks. The patient was brought to the cardiac catheterization noninvasive lab. After informed consent was obtained anterior posterior pads were applied. The patient was seen and evaluated by Dr. Allen of the critical care division. 200 J of synchronized DC cardioversion energy were applied after patient was administered 40 mg of intravenous propofol. The patient probably converted to sinus rhythm. Postoperative EKG confirmed the same. Patient tolerated the procedure well. Conclusion: Successful DC cardioversion to sinus rhythm from atrial fibrillation. Plan: Patient to continue on amiodarone, metoprolol, and Xarelto. Follow-up EKG in 1 week in my office. 11/15/171217 <Electronically signed by Vance Russ MD> Date Vance Russ MD CC: Vance Russ MD; Jaspreet Shine III, MD Signed OFFICE VISIT REPORT Observed: 11/10/2017 Status: F Source: [place] A 11:33 AM [facility] [address] [place] [address] OFFICE VISIT Date of Service: 11/10/17 MR#: [id number] Acct: [id number] Patient: JORGE ALAS Rep #: [id number] : 1935 Provider: Clay Pelletier RN Age/Sex: 82/M Location: [facility] Status: Signed Intake Vital Signs11/10/17 Blood Pressure 102/70 Intake Visit Reasons: prior to CV 11/15/17 Accompanied by: Is patient in pain?: No Allergies No Known Allergies Allergy (Verified 11/10/17 10:18) Medications Lovastatin [Mevacor] 40 mg PO QHS 05/24/13 [History Confirmed 11/10/17] Multivit-Min/FA/Lycopene/Lut [Centrum Silver Tablet] 1 tab PO DAILY 05/24/13 [History Confirmed 11/10/17] furosemide 40 mg tablet 40 mg PO BID tab 08/26/17 [History Confirmed 11/10/17] aspirin 81 mg tablet,delayed release 81 mg PO QDAY 09/03/17 [History Confirmed 11/10/17] isosorbide mononitrate ER 60 mg tablet,extended release 24 hr 60 mg PO QAM 09/03/17 [History Confirmed 11/10/17] losartan 50 mg tablet 25 mg PO QDAY tab 09/03/17 [History Confirmed 11/10/17] metoprolol tartrate 50 mg tablet 50 mg PO BID #180 tab 09/03/17 [Rx Confirmed 11/10/17] amiodarone 200 mg tablet 200 mg PO QDAY #90 tab 10/20/17 [Rx Confirmed 11/10/17] rivaroxaban 20 mg tablet 20 mg PO DAILY #90 tab 10/20/17 [Rx Confirmed 11/10/17] Assessment AND Plan Orders Orders: Nursing Note Pt here for ekg to see if Amiodarone has converted his rhythm: it has NOT. Pt scheduled for DCCV Wednesday11/15/17 at 12:30pm, arrival time 11am, and instructions reviewed with pt and . He has already had his labs and CXR done downstairs. 11/10/17 1133 <Electronically signed by Vance Russ MD> Date Vance Russ MD Cosigner Signature: Date (if applicable) CC: Radhika Mcfarland 12 LEAD EKG PERFORMED Observed: 11/10/2017 Status: F Source: [facility] A BY [facility] 9:43 AM [facility] [address] [place] [address] 12 Lead EKG performed by [facility] 11/10/17941 MR#: [id number] Acct: [id number] Name: JORGE ALAS Rep #: [id number] : 1935 82 From: Vance Russ MD Attending Dr: Clay Pelletier RN Status: DEP AMB Ordering Dr: Vance Russ MD Date: 11/10/17 [place] [facility] [place]: M C Admitted: BMS/12 Lead EKG performed by [facility] ECG Report Interpretation Atrial fibrillation ABNORMAL RHYTHMElectronically signed on 11/13/2017 at 18:32 by Vance Russ 11/13/17 183 Date Vance Russ MD CC: Jaspreet Shine III, MD Date Dictated: 11/10/17941 Date Transcribed: 11/10/17941 Kiln Car Unloader: [place] Signed PROTHROMBIN TIME W/INR Collected: 11/10/2017 Status: F Source: [place] 9:11 AM [facility] TYPE CODE TESTS RESULT OUT OF RANGE REFERENCE UNITS LAB L300.4150 11.7-14.9 SECONDS High PROTIME 24.2 LAB L300.4200 Normal INR 2.2 Performed By: #### L300.3900 #### [facility] [address] [place], [address] BASIC METABOLIC Collected: 11/10/2017 Status: F Source: [place] [facility] PROFILE (BMP) 9:11 AM [facility] TYPE CODE TESTS RESULT OUT OF RANGE REFERENCE UNITS LAB L501.0100 74-106 mg/dL Normal GLU 93 Result Comment: Please note revised GLUCOSE reference range effective 2017. LAB L501.1000 7-18 mg/dL High BUN 30 LAB L501.1100 0.70-1.30 mg/dL High CREAT,SERUM 1.75 Result Comment: The validity of the calculated GFR AND GFRAA in patients over 70 years has not been determined. Clinical correlation is essential. LAB L501.1110 >60 mL/min Low EST GFR 40 Result Comment: Non- GFR Calc LAB L501.1115 >60 mL/min Low EST GFR - AA 48 Result Comment: GFR Calc LAB L501.1300 10-20 RATIO Normal BUN/CRE 17.1 LAB L501.2200 8.5-10.1 mg/dL CA Normal 8.9 LAB L501.5300 136-145 mmol/L NA Normal 140 LAB L501.5600 3.5-5.1 mmol/L K Normal 3.9 LAB L501.5900 98-107 mmol/L CL Normal 103 LAB L501.6100 21.0-32.0 mmol/L Normal CO2 30.0 LAB L501.6200 5-15 Normal GAP 7 Performed By: #### L500.2500 #### [facility] [address] [facility] [place], [address] CHEST PA AND LATERAL Observed: 11/10/2017 Status: F Source: [place] 9:08 AM [facility] Imaging Services [address] [place] [address] Chest PA and Lateral MR#: [id number] Acct: [id number] Name: JORGE ALAS Angela Rep #: [id number] : 1935 M 82 From: Ashley Dalton MD PCP: Jaspreet Shine III, MD Status: REG CLI Study: Chest PA and Lateral Date of Exam: 11/10/17 Exam# [id number] Ordering Dr: Charlie Siddiqi [employer]-C STUDY: X-RAY CHEST REASON FOR EXAM: Male, 82 years old. Pre-op chest x-ray, no shortness of breath and dyspnea. TECHNIQUE: PA and lateral views of the chest. COMPARISON: 08/15/2017 FINDINGS: Stable elevation right hemidiaphragm with compression of the basilar parenchyma, pleural thickening along the left anterior pleura/fissure. The lungs are clear and expanded. There is no demonstrated pleural abnormality. Sternal cerclage wires and vascular clips are present from a prior sternotomy and coronary artery bypass graft procedure (CABG). Normal mediastinum and alaina. Normal visualized pulmonary arteries. There is atherosclerotic calcification of the aortic arch with tortuosity. There is demineralization of the osseous structures. Normal visualized ribs, clavicles, and shoulders. There is no demonstrated abnormality of the visualized soft tissue structures of the upper abdomen. RAD/Chest PA and Lateral IMPRESSION: Postsurgical changes with stable elevation of the right hemidiaphragm and compression of basilar parenchyma. Osteoporosis, arteriosclerosis. Electronically Signed: Ashley Dalton MD at 6:57 EDT , Service support , CC: WOLF Siddiqi; Jaspreet Shine III, MD Kiln Car Unloader: Signed CARDIOLOGY VISIT Observed: 10/20/2017 Status: F Source: [place] REPORT 2:17 PM [facility] [address] [place] [address]. [address] [place] [address] OFFICE VISIT Date of Service: 10/20/17 MR#: [id number] Acct: [id number] Name: JORGE ALAS Rep #: [id number] : 1935 Provider: WOLF Siddiiq Age/Sex: 82/M [place] [facility]: Signed HPI HPI Details: JORGE ALAS, is a 82 M who presents to the office today for a cardiovascular outpatient follow-up. Patient has a history of coronary artery disease status post bypass surgery in 1997 with GONZALES to LAD and SVG to LCx and RCA, atrial fibrillation status post cardioversion in August 2016, hypertension, and hyperlipidemia. Pt. denies chest, arm, jaw, or neck discomfort. His exercise tolerance is stable. Pt. denies symptoms of palpitations, lightheadedness, dizziness, near syncope, or syncopal episodes. Pt. denies edema or claudication issues. Pt. denies orthopnea, PND, fever, chills, blood in urine, blood in stool, myalgia, or unexplainable fatigue. Pt. continues to get SOB with minimal activity, bending forward, and walking up steps. Intake Vital Signs10/20/17 Height 5 ft 8 in 10/20/17 Weight: 228 lb 10/20/17 Body Mass Index (BMI) 34.7 10/20/17 Blood Pressure 120/84 10/20/17 Blood Pressure Location Lt brachial Intake Visit Reasons: 6 wk f/up Electrolysis Operator Required: No Accompanied by: Is patient in pain?: No Allergies No Known Allergies Allergy (Verified 10/20/17 09:56) Medications Lovastatin [Mevacor] 40 mg PO QHS 05/24/13 [History Confirmed 10/18/17] Multivit-Min/FA/Lycopene/Lut [Centrum Silver Tablet] 1 tab PO DAILY 05/24/13 [History Confirmed 10/18/17] furosemide 40 mg tablet 40 mg PO BID tab 08/26/17 [History Confirmed 10/18/17] aspirin 81 mg tablet,delayed release 81 mg PO QDAY 09/03/17 [History Confirmed 10/18/17] isosorbide mononitrate ER 60 mg tablet,extended release 24 hr 60 mg PO QAM 09/03/17 [History Confirmed 10/18/17] losartan 50 mg tablet 25 mg PO QDAY tab 09/03/17 [History Confirmed 10/18/17] metoprolol tartrate 50 mg tablet 50 mg PO BID #180 tab 09/03/17 [Rx Confirmed 10/18/17] amiodarone 200 mg tablet 200 mg PO QDAY #90 tab 10/20/17 [Rx Confirmed 10/20/17] rivaroxaban 20 mg tablet 20 mg PO DAILY #90 tab 10/20/17 [Rx Confirmed 10/20/17] Ejection fraction %: 55 to 59 PFSH Medical History Palpitations (Chronic) Hyperlipidemia (Chronic) Hypertension (Chronic) Atherosclerosis of coronary artery of twenty-nine palms heart without angina pectoris (Chronic) Secondary pulmonary arterial hypertension (Chronic) Paroxysmal atrial fibrillation (Chronic) Chronic diastolic heart failure (Chronic) Shortness of breath (Acute) Surgical History H/O coronary artery bypass surgery (Chronic 09/20/97) History of appendectomy (Chronic) History of left heart catheterization (Chronic 12/12/14) History of thymectomy (Chronic) History of tonsillectomy (Chronic) Hx of cholecystectomy (Chronic) Family History Mother CAD (coronary artery disease) Brother CAD (coronary artery disease) Social History Smoking Status: Never smoker alcohol intake: never substance use type: does not use caffeine: Yes Type: coffee what type of physical activity do you participate in: none seatbelt use: always do you feel safe at home: Yes ROS Const Const: Negative for fatigue, weakness, body ache, fever(s) or chills ENT ENT: Negative for dizziness Cardio Chest Pain: No Palpitations: No Edema: None Muscle aches with walking: None Resp Respiratory: Positive for SOB with activity; negative for SOB at rest, SOB orthopnea\SOB lying down or paroxysmal nocturnal dyspnea GI GI: Negative nausea, black,tarry stools, bright, red blood in stools or vomiting blood/hematemesis : Negative for hematuria or frequent nighttime urination/ nocturia Musc Musc: Negative for muscle aches/ myalgia Neuro Neuro: Negative for weakness, dizziness, lightheadedness, near syncope, syncope or orthostatic symptoms Endo Endo: Negative for fatigue Cardiology Exam Const Appearance: cooperative, healthy appearing, comfortable and no acute distress Orientation: alert, awake and oriented x3 Head Head: normal to inspection Mouth: oral mucosae normal Neck Neck: no JVD and normal visual inspection Carotids: normal carotid upstroke Chest Chest inspection: normal inspection of the chest and normal respiratory effort Auscultation: Bilateral: Clear to Auscultation Cardio Rate: regular rate Rhythm: irregularly irregular Heart sounds: S1 normal and S2 normal; negative rub or gallop GI GI: normal to inspection Neuro General: alert, awake, oriented x3 and CN's II-XI intact bilaterally Skin Skin: no rashes or lesions noted Extremities Pulses: Normal: Right Posterior Tibial Pulse, Left Posterior Tibial Pulse, Right Radial Pulse, Left Radial Pulse Lower Extremity Edema: None: Bilateral Psych Psychological: normal affect Assessment AND Plan 1. Paroxysmal atrial fibrillation I48.0 Plan - YANDEL Kelly Patient's home blood pressure monitor has noted a regular heartbeat on some readings. Patient is not able to correlate symptoms with blood pressure cuff. Since he still gets short of breath with minimal activity and he appears to be in atrial fibrillation today in office, he will proceed with amiodarone therapy and cardioversion. Patient has not missed any dosages of his factor Xa inhibitor. Patient will return to our office a few days prior to scheduled cardioversion to confirm rhythm patient's. Patient's heart rate is well controlled at home and today in office. He will continue with current beta-maurice dosage. 2. 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 Patient's stress test from October 2015 was negative for stress-induced myocardial ischemia at a moderate workload. Patient's heart catheterization from December 2014 showed patent bypass grafts. Patient denies any chest pain, arm pain, jaw pain, neck pain, or fatigue suggestive of angina at this time. We will continue to monitor this. We will not make any medication regimen changes and will continue risk factor modification. Orders Orders: 3. Essential hypertension I10 YANDEL Long Patient's blood pressure is well-controlled today in the office. We will continue to monitor this. We will not make any medication regimen changes. Orders Orders: 4. Pure hypercholesterolemia E78.00 Plan - YANDEL Kelly Patient's most recent lipid panel from June 2017 showed cholesterol: 133, HDL: 37, LDL: 70, and triglycerides: 130. Patient will continue the current cholesterol-lowering medication. He is expected to repeat both liver and lipid panel in December 2017. We will wait for results of these laboratory tests for further recommendation Plan Detail Other Orders Orders: Other Medications New: Additional Comments - YANDEL Kelly Discussed the above patient with Dr. Russ, he agrees with the plan of care. Thank you for allowing us to participate in the patients plan of care, if you have any questions please do not hesitate to call. This note was generated using a voice recognition system and there may be incorrect words, spelling or punctuation that were not noted when reviewing the office note prior to saving. 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 I25.10 Coronary Disease-Associated Artery/Lesion type: twenty-nine palms artery Essential hypertension I10 Hypertension type: essential hypertension Pure hypercholesterolemia E78.00 Hyperlipidemia type: pure hypercholesterolemia Coding Level of Care Code Off vis,est,level 3 Diagnoses Paroxysmal atrial fibrillation I48.0 Atrial fibrillation type: paroxysmal 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 I25.10 Coronary Disease-Associated Artery/Lesion type: twenty-nine palms artery Essential hypertension I10 Hypertension type: essential hypertension Pure hypercholesterolemia E78.00 Hyperlipidemia type: pure hypercholesterolemia 10/20/17 1152 <Electronically signed by Charlie HUMPHRIES> Date Charlie Siddiqi NP-C 10/20/17 1417<Electronically signed by Vance Russ MD> Cosigner Signature: Date (if applicable) Vance Russ MD CC: Jaspreet Shine III, MD CARDIOLOGY VISIT Observed: 09/03/2017 Status: F Source: [place] RE[facility] 3:33 PM [facility] [place] [facility] [address] [place] [address] OFFICE VISIT Date of Service: 09/03/17 MR#: [id number] Acct: [id number] Name: JORGE ALAS Rep #: [id number] : 1935 Provider: Vance Russ MD Age/Sex: 82/M [place] [facility] [place] Signed HPI [facility] ER 08/14/17: Chief Complaint: 1. Follow-up from ER visits. Details: JORGE EVETTE, is a 82 M who presents to the office today for follow-up on his recent visit to the emergency room. As you know he has a gentleman with a history of coronary artery disease status post coronary bypass surgery was 20 years ago paroxysmal atrial fibrillation hypertension hyperlipidemia. It appears that he is having more episodes of atrial fibrillation and is becoming more persistent. He denies any chest pain per se he says that he feels tingly all over as well as tremulous. At this also appears to be in his legs. He presented to the emergency room he was noted to be in atrial fib relation with rapid ventricular response rate his beta-maurice was increased and he was discharged home and this is a follow-up visit from that. In July 2016 he had an echocardiogram performed which demonstrated normal left ventricular size and function and estimated ejection fraction of 55%. A stress test done 2 years ago demonstrated no evidence of ischemia. He has had no dizziness or diaphoresis and no near syncope or syncope. His physical exam today demonstrates clear lung bradford irregular irregular heart rate and no pedal edema. His blood pressure is under good control. Intake Vital Signs09/03/17 Height 5 ft 8 in 09/03/17 Weight: 225 lb 09/03/17 Body Mass Index (BMI) 34.2 09/03/17 Blood Pressure 110/64 Intake Visit Reasons: [facility] ER 08/14/17 Accompanied by: Allergies No Known Allergies Allergy (Verified 09/03/17 15:01) Medications Lovastatin [Mevacor] 40 mg PO QHS 05/24/13 [History Confirmed 09/03/17] Multivit-Min/FA/Lycopene/Lut [Centrum Silver Tablet] 1 tab PO DAILY 05/24/13 [History Confirmed 09/03/17] Rivaroxaban [Xarelto] 20 mg PO DAILY 09/04/16 [History Confirmed 09/03/17] furosemide 40 mg tablet 40 mg PO BID tab 08/26/17 [History Confirmed 09/03/17] aspirin 81 mg tablet,delayed release 81 mg PO QDAY 09/03/17 [History Confirmed 09/03/17] isosorbide mononitrate ER 60 mg tablet,extended release 24 hr 60 mg PO QAM 09/03/17 [History Confirmed 09/03/17] losartan 50 mg tablet 25 mg PO QDAY tab 09/03/17 [History Confirmed 09/03/17] metoprolol tartrate 25 mg tablet 25 mg PO BID 09/03/17 [History Confirmed 09/03/17] metoprolol tartrate 50 mg tablet 50 mg PO BID #180 tab 09/03/17 [Rx Confirmed 09/03/17] Ejection fraction %: 55 to 59 (55% per echo 07/27/2016) [facility] Medical History Hyperlipidemia (Chronic) Hypertension (Chronic) Atherosclerosis of coronary artery of twenty-nine palms heart without angina pectoris (Chronic) Secondary pulmonary arterial hypertension (Chronic) Paroxysmal atrial fibrillation (Chronic) Chronic diastolic heart failure (Chronic) Surgical History H/O coronary artery bypass surgery (Chronic 09/20/97) History of appendectomy (Chronic) History of left heart catheterization (Chronic 12/12/14) History of thymectomy (Chronic) History of tonsillectomy (Chronic) Hx of cholecystectomy (Chronic) Family History Mother CAD (coronary artery disease) Brother CAD (coronary artery disease) Social History Smoking Status: Never smoker ROS Const Const: Negative for fatigue, weakness, difficulty sleeping, frequent falls, headache(s) or excessive sweating Eyes Eyes: Negative for loss of peripheral vision, transient loss of vision, blurry vision or double vision ENT ENT: Negative for headache(s), Negative for dizziness, Negative for Nosebleed/epistaxis, Negative for balance problems Cardio Chest Pain: No Palpitations: Positive for Yes (Has atrial fib) Palpitations: skipping Edema: None, Bilateral (mild pitting to mid dominguez) Muscle aches with walking: None Resp Respiratory: Positive for SOB with activity (It has improved but still SOB with activity.); negative for SOB at rest, SOB orthopnea\SOB lying down or paroxysmal nocturnal dyspnea GI GI: Negative nausea or heartburn : Negative for hematuria Musc Musc: Negative for muscle aches/ myalgia, muscle weakness, joint pain or balance problems Skin Skin: Negative non-healing lesions, unusual bruising or rash Neuro Neuro: Negative for weakness, Negative for frequent falls, Negative for blurry vision, Negative for headache(s), Negative for dizziness, Negative for lightheadedness, Negative for orthostatic symptoms, Negative for double vision Efrain Hematologic/Lymphatic: Negative for easy bruising Endo Endo: Negative for fatigue, excessive sweating or increased thirst/drinking Psych Psych: Negative for anxiety or depression Allergy Allergy/Immunology: Negative for hives, Negative for rash Cardiology Exam Const Appearance: cooperative, healthy appearing, well developed, well groomed and no acute distress Nutritional Appearance: well nourished and average body habitus Orientation: alert, awake and oriented x3 Head Head: normal to inspection, normocephalic and atraumatic Ears: hearing grossly normal bilaterally and external ears normal Nose: external nose normal, nasal mucous membranes and turbinates normal, nares normal, septum normal, no nasal discharge Face and Sinus: face symmetric Mouth: oral mucosae normal, tongue normal, oropharynx normal and moist mucous membranes Teeth and gingiva: dentition normal Throat: posterior oropharynx normal, tonsils normal and uvula midline Eyes General: appearance normal, both eyes and all related structures Eyelids: eyelids normal Conjunctivae: conjunctivae normal Pupils: PERRL, normal by confrontation and accommodation normal EOM: EOM intact bilaterally Neck Neck: normal visual inspection, trachea midline and no JVD JVD: +5 Carotids: normal carotid upstroke and bounding pulses Chest Chest inspection: normal inspection of the chest, symmetric chest movement and normal respiratory effort Auscultation: Bilateral: Clear to Auscultation Cardio Palpation: normal PMI Rhythm: irregular rhythm Heart sounds: S1 normal and S2 normal GI GI: normal to inspection, soft, no hepatosplenomegaly and bowel sounds present Neuro General: alert, awake, oriented x3, no focal sensory deficit, gait normal and moves all extremities Skin Skin: no rashes or lesions noted Extremities Pulses: Normal: Right Femoral Pulse, Left Femoral Pulse, Right Dorsalis Pedis Pulse, Left Dorsalis Pedis Pulse, Right Posterior Tibial Pulse, Left Posterior Tibial Pulse, Right Radial Pulse, Left Radial Pulse Lower Extremity Edema: None: Bilateral Musculoskel Musculoskeletal: No joint tenderness Psych Psychological: normal affect Assessment AND Plan 1. Persistent atrial fibrillation with rapid ventricular response I48.1 Plan He now appears to be in persistent atrial fib relation with rapid ventricular response rate he remains anticoagulated. My recommendation would be to increase his beta-maurice to metoprolol 50 mg twice a day. I would like to see him again in approximately 6 weeks to determine what his heart rate is doing. If he continues to be symptomatic then we may consider DC cardioversion and adding amiodarone to his regimen. 2. Essential hypertension I10 Plan His blood pressure is under good control at this particular time but with increasing the metoprolol dose I would recommend reducing the losartan to 25 mg once a day. 3. H/O coronary artery bypass surgery Z95.1 CABG X 3 GONZALES-LAD, SVG-CX, SVG-RCA Plan He is status post coronary bypass surgery and he has reminded me that he is almost close to his 20th anniversary you do remember he underwent stress testing in October 2015 where he exercised to 7 metabolic equivalents with no evidence of angina and no ischemia was noted. He did have relative chronotropic incompetence present. I would not recommend any changes to his current regimen he remains on isosorbide as well as aspirin and lipid- lowering medication. 4. Pure hypercholesterolemia E78.00; E78.0 Plan He remains on lipid-lowering medication his most recent lipid profile demonstrated total cholesterol 133, LDL of 70 and HDL of 37. No other changes will be made. 5. Chronic diastolic heart failure I50.32 Plan He does have evidence of diastolic heart failure his last echocardiogram demonstrated preserved ejection fraction he remains on the diuretic with the Lasix which she should continue to take 40 mg twice a day. Thank you for allowing me to participate in the care of your patient. Please don't hesitate to call if any issues arise Plan Detail Other Medications New: Follow Up 6 Weeks (jhr) Coding Level of Care Code Off vis,est,level 5 Diagnoses Persistent atrial fibrillation with rapid ventricular response I48.1 Essential hypertension I10 Hypertension type: essential hypertension H/O coronary artery bypass surgery Z95.1 Pure hypercholesterolemia E78.00; E78.0 Hyperlipidemia type: pure hypercholesterolemia Chronic diastolic heart failure I50.32 09/03/17 1533 <Electronically signed by Vance Russ MD> Date Vance Russ MD Cosigner Signature: Date (if applicable) CC: Jaspreet Shine III, MD ALLERGIES ALLERGIES DATE TYPE / CODE NAME / CODE REACTION SEVERITY SOURCE 07/27/2018 Drug No Known Unknown [facility] Allergy/416 Allergies/C90327 Hospital 609588(SNOM 0388(RXNORM) Repository ED CT) Drug NO KNOWN [facility] Class/99280 ALLERGIES [place] 1003(SNOMED Repository CT) ENCOUNTERS ENCOUNTERS ADMIT/DISCHARGE ACCOUNT ADMITTING ENCOUNTER LOCATION SOURCE NUMBER CLASS 08/30/2018/08/31/19 [id number] Ambulatory [address] Repository 08/11/2018 [id number] Ambulatory [facility] Hospital ing:LAB Repository 08/04/2018/08/05/20 [id number] Ambulatory [address] Repository 07/27/2018/07/27/20 [id number] Ambulatory B[facility] Repository 07/26/2018 [id number] Ambulatory [facility] Hospital ing:LAB Repository 07/13/2018 [id number] Ambulatory [facility] Hospital ing:CVS Repository 07/13/2018 [id number] Ambulatory B[facility]:W [facility] Repository 06/21/2018 [id number] Ambulatory [facility] Hospital ing:LAB Repository 06/09/2018/06/09/20 [id number] Ambulatory BMSBuilding:B [facility] A [address] [facility] Repository 04/05/2018/04/07/20 [id number] Ambulatory [address] Repository 03/21/2018/03/23/20 [id number] Ambulatory [address] Repository 03/17/2018/03/21/20 [id number] Ambulatory [address] Repository 03/13/2018/03/13/20 [id number] Emergency [address] Hospital ing:ED Repository 03/08/2018/03/08/20 [id number] Ambulatory [address] Repository 03/08/2018/03/08/20 [id number] Ambulatory [address] Repository 03/08/2018/03/09/20 [id number] Ambulatory [address] Repository 03/08/2018/03/10/20 [id number] Ambulatory [address] Repository 01/13/2018/01/14/20 [id number] Ambulatory [facility] [place] [facility] Repository 12/20/2017 [id number] Ambulatory [facility] Hospital ing:LAB Repository 11/26/2017 [id number] Ambulatory [facility] Hospital ing:LAB Repository 11/22/2017/11/23/19 [id number] Ambulatory BMSBuilding:B [facility] [address] [facility] Repository 11/15/2017 [id number] Ambulatory B[facility] [facility] Repository 11/15/2017 [id number] Ambulatory BMSBuilding:B [facility] A [facility] Repository 11/15/2017 [id number] Ambulatory [facility] Hospital ing:CLSP Repository 11/10/2017/11/11/19 [id number] Ambulatory BMS[facility] [facility] Repository 11/10/2017 [id number] Ambulatory [facility] Hospital ing:LAB Repository 10/20/2017/10/21/19 [id number] Ambulatory BMSBuilding:B [facility] [address] [facility] Repository 09/03/2017/09/03/19 [id number] Ambulatory BMSBuilding:B [facility] A [facility] Repository 09/03/2017 [id number] Ambulatory BMSBuilding:B [facility] Repository 08/23/2017/08/23/19 [id number] Ambulatory B[facility] [facility] Repository PAYERS PAYERS ENCOUNTER GUARANTOR PAYER SUBSCRIBER SOURCE 08/11/2018 JORGE [id number] [place] Insurance:HOMETOAbiodun SCHWARTZ: [facility] [id number] Hospital [address]Htm: (330) MEDICAREPolicy Repository [phone] () Number: [id number] Date: [address] [address]QH: 08/11/2018 Secondary NOT GIVENUNK [place] Insurance:SELF PAY [facility] Number: Effective Repository Date:2018-08-11 07/27/2018 JORGE Miller Primary JORGE Saha [id number] [place] Insurance:[place] CHENEVEYDOB: [facility] CARE [id number] Hospital [address]Odc: ([phone]) MEDICAREPolicy Repository [phone] () Number: [id number] Date: [address] [address]SV: 07/27/2018 Secondary NOT GIVENUNK Maria A Insurance:SELF PAY [facility] Number: Effective Repository Date:2018-07-27 07/26/2018 JORGE Miller Primary JORGE Saha [id number] [place] Insurance:[place] CHENEVEYDOB: Community [facility] CARE [id number] Hospital [address]Vpn: (212) MEDICAREPolicy Repository [phone] () Number: [id number] Date: [address] [address]LH: 07/26/2018 Secondary NOT GIVENUNK Maria A Insurance:SELF PAY [facility] Number: Effective Repository Date:2018-07-26 07/13/2018 JORGE Miller Primary JORGE Saha [id number] [place] Insurance:[place] CHENEVEYDOB: Community [facility] CARE [id number] Hospital [address]Wgl: (114) MEDICAREPolicy Repository [phone] () Number: [id number] Date: [address] [address]HW: 07/13/2018 Secondary NOT GIVENUNK [place] Insurance:SELF PAY [facility] Number: Effective Repository Date:2018-06-27 07/13/2018 JORGE Miller Primary JORGE Saha [id number] [place] Insurance:[place] CHENEVEYDOB: [facility] [id number] Hospital [address]Idf: (110) MEDICAREPolicy Repository [phone] () Number: [id number] Date: [address] [address]KD: 07/13/2018 Secondary NOT GIVENUNK [place] Insurance:SELF PAY [facility] Number: Effective Repository Date:2018-07-13 06/21/2018 JORGE Miller Primary JORGE Saha [id number] [place] Insurance:[place] CHENMARIKAEYDOB: [facility] [id number] Hospital [address]Sdw: (437) MEDICAREPolicy Repository [phone] () Number: [id number] Date: [address] [address]GF: 06/21/2018 Secondary NOT GIVENUNK [place] Insurance:SELF PAY [facility] Number: Effective Repository Date:2018-06-21 06/09/2018 JORGE Miller Primary JORGE Saha [id number] [place] Insurance:[place] CHENEVEYDOB: [id number] [address]Ucq: MEDICAREPolicy Repository Number: (HP) [id number] Date: [address] [address]ZS: 06/09/2018 Secondary NOT GIVENUNK [place] Insurance:SELF PAY [facility] Number: Effective Repository Date:2018-06-09 03/13/2018 JORGE Miller Primary JORGE Saha [id number] [place] Insurance:[place] CHENEVEYDOB: [facility] [id number] [address]Ofy: MEDICAREPolicy Repository Number: () [id number] Date: [address] [address]XT: 03/13/2018 Secondary NOT GIVENUNK Maria A Insurance:SELF PAY [facility] Number: Effective Repository Date:2018-03-13 01/13/2018 JORGE Miller Primary JORGE Saha [id number] [place] Insurance:[place] CHENEVEYDOB: Community [facility] [id number] [address]Hfx: MEDICAREPolicy Repository Number: () [id number] Date: [address] [address]CC: 01/13/2018 Secondary NOT GIVENUNK Maria A Insurance:SELF PAY [facility] Number: Effective Repository Date:2018-01-28 12/20/2017 JORGE Miller Primary JORGE Saha [id number] [place] Insurance:[place] CHENEVEYDOB: [facility] [id number] [facility] [address]Nje: [phone]) MEDICAREPolicy Repository [phone] () Number: [id number] Date: [address] [address]OA: 12/20/2017 Secondary NOT GIVENUNK Maria A Insurance:SELF PAY [facility] Number: Effective Repository Date:2017-12-20 11/26/2017 JORGE Miller Primary JORGE Saha [id number] [place] Insurance:[place] CHENEVEYDOB: [facility] [id number] Hospital [address]Xqs: (385) MEDICAREPolicy Repository [phone] () Number: [id number] Date: [address] [address]OJ: 11/26/2017 Secondary NOT GIVENUNK Maria A Insurance:SELF PAY [facility] Number: Effective Repository Date:2017-11-26 11/22/2017 JORGE Miller Primary JORGE Saha [id number] [place] Insurance:[place] CHENEVEYDOB: [facility] [id number] Hospital [address]Zpq: ([phone]) MEDICAREPolicy Repository [phone] () Number: [id number] Date: [address] [address]HK: 11/22/2017 Secondary NOT GIVENUNK Maria A Insurance:SELF PAY [facility] Number: Effective Repository Date:2017-11-22 11/15/2017 JORGE Milelr Primary JORGE Saha [id number] [place] Insurance:[place] CHENEVEYDOB: [facility] [id number] Hospital [address]Esv: (222) MEDICAREPolicy Repository [phone] () Number: [id number] Date: [address] [address]NC: 11/15/2017 Secondary NOT GIVENUNK Maria A Insurance:SELF PAY [facility] Number: Effective Repository Date:2017-11-15 11/15/2017 JORGE Miller Primary JORGE Saha [id number] [place] Insurance:[place] CHENAJAYDOB: [facility] CARE [id number] Hospital [address]Wsb: ([phone]) MEDICAREPolicy Repository [phone] () Number: [id number] Date: [address] [address]DD: 11/15/2017 Secondary NOT GIVENUNK Maria A Insurance:SELF PAY [facility] Number: Effective Repository Date:2017-11-15 11/15/2017 JORGE Miller Primary JORGE Saha [id number] [place] Insurance:[place] CHENEVEYDOB: [facility] [id number] Hospital [address]Jww: (330) MEDICAREPolicy Repository [phone] () Number: [id number] Date: [address] [address]KC: 11/15/2017 Secondary NOT GIVENUNK Maria A Insurance:SELF PAY [facility] Number: Effective Repository Date:2017-10-20 11/10/2017 JORGE Miller Primary JORGE Saha [id number] [place] Insurance:[place] CHENEVEYDOB: [facility] [id number] Hospital [address]Fei: (330) MEDICAREPolicy Repository [phone] () Number: [id number] Date: [address] [address]FW: 11/10/2017 Secondary NOT GIVENUNK [place] Insurance:SELF PAY [facility] Number: Effective Repository Date:2017-11-10 11/10/2017 JORGE Miller Primary JORGE Saha [id number] [place] Insurance:[place] CHENEVEYDOB: [facility] [id number] Hospital [address]Mlx: (330) MEDICAREPolicy Repository [phone] () Number: [id number] Date: [address] [address]PB: 11/10/2017 Secondary NOT GIVENUNK [place] Insurance:SELF PAY [facility] Number: Effective Repository Date:2017-11-10 10/20/2017 JORGE Miller Primary JORGE Saha [id number] [place] Insurance:[place] CHENEVEYDOB: [facility] [id number] Hospital [address]Cfb: (330) MEDICAREPolicy Repository [phone] () Number: [id number] Date: [address] [address]OI: 10/20/2017 Secondary NOT GIVENUNK Maria A Insurance:SELF PAY [facility] Number: Effective Repository Date:2017-09-03 09/03/2017 JORGE Miller Primary JORGE Saha [id number] [place] Insurance:[place] CHENEVEYDOB: [facility] [id number] Hospital [address]Pif: (330) MEDICAREPolicy Repository [phone] () Number: [id number] Date: [address] [address]TR: 09/03/2017 Secondary NOT GIVENUNK Maria A Insurance:SELF PAY [facility] Number: Effective Repository Date:2017-08-18 09/03/2017 JORGE L Primary JORGE Saha [id number] [place] Insurance:[place] CHENEVEYDOB: [facility] [id number] Hospital [address]Qyf: (330) MEDICAREPolicy Repository [phone] () Number: [id number] Date: [address] [address]PF: 09/03/2017 Secondary NOT GIVENUNK [place] Insurance:SELF PAY [facility] Number: Effective Repository Date:2017-09-03 08/23/2017 JORGE L Primary JORGE Saha [id number] [place] Insurance:[place] CHENEVEYDOB: [facility] [id number] Hospital [address]Rov: (330) MEDICAREPolicy Repository [phone] () Number: [id number] Date: [address] [address]WI: 08/23/2017 Secondary NOT GIVENUNK Maria A Insurance:SELF PAY [facility] Number: Effective Repository Date:2017-08-20
== END ==
PROVIDERS: Nurse Practitioner Family; Physician Assistant Medical; Family Provider Family Medicine; PCP Family Medicine; Referring Provider Internal Medicine Cardiovascular Disease; Visit Provider Internal Medicine Cardiovascular Disease
DX: E78.5 Hyperlipidemia, unspecified (principal); R06.02 Shortness of breath
CPT/HCPCS: 36415; 80048; 80061; 80076

== ENCOUNTER → 2018-08-11 09:58 | Outpatient (CLI) | payer MEDICARE, SELFPAY ==
[2018-07-27 09:53] VITALS: BMI 34.3
[2018-08-11 11:19] LABS: Anion Gap 8 (5-15); BUN 30 mg/dL (7-18); BUN/Creat Ratio 15.2 RATIO (10-20); Calcium,Total 8.5 mg/dL (8.5-10.1); Chloride 105 mmol/L (98-107); Creatinine, Serum 1.97 mg/dL (0.70-1.30); EST Glomerular Filtration Rate 35 mL/min (>60); Est Glom Filt Rate - Afr Amer 42 mL/min (>60); Glucose 91 mg/dL (74-106); Potassium 4.6 mmol/L (3.5-5.1); Sodium Level 138 mmol/L (136-145)
[2018-08-15 16:45] LABS: Vitamin D 1,25-Dihydroxy 33.3 pg/mL (19.9-79.3)
== END ==
PROVIDERS: Family Provider Family Medicine; PCP Family Medicine; Referring Provider Physician Assistant Medical; Visit Provider Physician Assistant Medical
DX: I25.10 Atherosclerotic heart disease of native coronary artery without angina pectoris (principal); I10 Essential (primary) hypertension; E78.00 Pure hypercholesterolemia, unspecified; N28.9 Disorder of kidney and ureter, unspecified; R53.83 Other fatigue; I50.32 Chronic diastolic (congestive) heart failure; I48.0 Paroxysmal atrial fibrillation
CPT/HCPCS: 36415; 80048; 82652

== ENCOUNTER → 2019-03-03 09:17 | Outpatient (CLI) | payer MEDICARE, SELFPAY ==
[2018-09-29 10:43] VITALS: BMI 33.0
[2019-01-11 11:23] VITALS: BMI 33.0
[2019-03-03 11:03] LABS: AST(SGOT) 21 U/L (15-37); Alanine Aminotransfer ALT/SGPT 31 U/L (16-61); Albumin, Serum 3.7 g/dL (3.2-5.0); Alkaline Phosphatase 91 U/L (45-117); Cholesterol 169 mg/dL (200); Globulin 3.3 g/dL (2.2-4.2); High Density Lipoprotein 41 mg/dL; Triglycerides 170 mg/dL; Very Low Density Lipoprotein 34 mg/dL (5-40)
== END ==
PROVIDERS: Nurse Practitioner Family; Family Provider Family Medicine; PCP Family Medicine; Referring Provider Internal Medicine Cardiovascular Disease; Visit Provider Internal Medicine Cardiovascular Disease
DX: E78.5 Hyperlipidemia, unspecified (principal)
CPT/HCPCS: 36415; 80061; 80076

== ENCOUNTER 2019-04-24 05:21 | Day surgery (SDC) | payer MEDICARE, SELFPAY ==
[2019-04-19 14:45] VITALS: BMI 33.0
--- NOTE | 2019-04-24 05:32 | HP.PCM_ITS ---
Problem List (1) Constipation Status: Acute Qualifiers: History and Physical Date of Admission: 04/24/19 MR#:[id number]:[id number] Name: ROBERTO ALAS Rep #: [id number] : 1935 Provider: Mo Shine MD Age/Sex: 83/M Location: [facility] Status: Signed Intake Vital Signs 04/19/19 Body Mass Index (BMI) 33.0 04/19/19 Height 5 ft 8 in 04/19/19 Weight: 220 lb 04/19/19 Body Mass Index (BMI) 33.4 04/19/19 Blood Pressure 130/80 H 04/19/19 Blood Pressure Location Rt brachial 04/19/19 Respiratory Rate 18 Intake Visit Reasons: C-Scope abdominal Pain Chief Complaint: Follow up Metal Lather Required: No Is patient in pain?: No Allergies No Known Allergies Allergy (Verified 04/19/19 14:44) Medications Multivit-Min/FA/Lycopene/Lut [Centrum Silver Tablet] 1 tab PO DAILY 05/24/13 [History Confirmed 04/19/19] metoprolol tartrate 25 mg tablet 12.5 mg PO BID #90 tab 06/14/18 [Rx Confirmed 04/19/19] lovastatin 40 mg tablet 40 mg PO QHS #90 tab 07/15/18 [Rx Confirmed 04/19/19] aspirin 81 mg tablet,delayed release 81 mg PO QDAY #90 tab 07/27/18 [Rx Confirmed 04/19/19] amiodarone 200 mg tablet 200 mg PO QDAY #90 tab 09/29/18 [Rx Confirmed 04/19/19] rivaroxaban 20 mg tablet 20 mg PO DAILY #90 tab 11/15/18 [Rx Confirmed 04/19/19] furosemide 40 mg tablet 40 mg PO DAILY #180 tab 03/29/19 [Rx Confirmed 04/19/19] [facility] Medical History Palpitations (Chronic) Hyperlipidemia (Chronic) Hypertension (Chronic) Atherosclerosis of coronary artery of [place] heart without angina pectoris (Chronic) Secondary pulmonary arterial hypertension (Chronic) Paroxysmal atrial fibrillation (Chronic) Chronic diastolic heart failure (Chronic) Shortness of breath (Acute) Surgical History H/O coronary artery bypass surgery (Chronic ~09/20/97) History of appendectomy (Chronic) History of left heart catheterization (Chronic ~12/12/14) History of thymectomy (Chronic) Hx of cholecystectomy (Chronic) Family History Mother CAD (coronary artery disease) Brother CAD (coronary artery disease) Social History (Updated 04/19/19 @ 15:09 by Mo Shine MD) Smoking Status: Never smoker alcohol intake: never substance use type: does not use caffeine: Yes Type: coffee Number of servings: 1 what type of physical activity do you participate in: none seatbelt use: always do you feel safe at home: Yes HPI HPI HPI: ROBERTO ALAS, is a 83 M who presents to the office today for HPI HPI Surgical H&P: Yes HPI: ROBERTO ALAS, is a 83 M who presents to the office today for surgical consultation regarding progressive constipation single episode of rectal bleeding some hemorrhoidal discomfort. Patient is referred by primary Dr. Jose C Shine, III and a written copy of my surgical consult recommendations will be returned to him. For at least 2 months the patient has complained of progressive constipation. He states that cabbage soup helps him and is also taking some type of grain product. He tried Metamucil without good result. He has not tried MiraLAX. He denies fever or chills or sweats or nausea or vomiting. The pressure of his pant belt was uncomfortable so he changed to using suspenders. His most recent colonoscopy was [address] Blaise Healy. No abnormalities. The patient denies any personal history of colon polyp or colon cancer. No family history of colon cancer. The patient denies any history of acute weight loss. Upon his evaluation plain films of the abdomen were obtained but did not demonstrate any findings that would suggest small bowel obstruction or bowel obstruction. As of March 31, 2019 white blood cell count was 7.28 with a hemoglobin of 15.7 and hematocrit of 40.3 and platelet count 151,000. Liver function tests were normal. BUN was 27 and creatinine was 2.3. The patient does have atrial fibrillation and he has had a history of coronary bypass grafting. He is on low-dose aspirin and Xarelto. His general activity is significantly declined. He used to walk alot but now he just gets fatigued ROS General General: Yes fatigue; no weight change, appetite, colon cancer, breast cancer or weakness HEENT HEENT: No difficulty swallowing, eye injury, eye surgery, swollen glands or hoarseness Endo Endocrine: No thyroid disease, diabetes mellitus, thyroid cancer, Hair loss, heat intolerance or cold intolerance Skin Skin: Yes rash; no changing moles Breast Breast: No left breast lump, right breast lump, nipple discharge, breast pain, abnormal mammogram, abnormal US or breast enlargement Musc Musculoskeletal: Yes back problems and arthritis; no rheumatoid arthritis, gout or joint pain Cardio Cardiovascular: Yes heart disease, atrial fibrillation and high blood pressure; no murmur, pacemaker, heart attack, heart stent, palpitations, shortness of breat with exertion or chest pain Psych Psychiatric: No depression, anxiety or hearing voices Resp Respiratory: Yes shortness of breath, No sleep apnea, No cough, No COPD, No asthma, No emphysema, No wheezing Gastro Gastrointestinal: No abdominal pain, No nausea or vomiting, No diarrhea, Yes constipation, No blood in stool, No acid reflux, Yes hemorrhoids, No ulcers, No gallbladder problem, No black,tarry stools Efrain Hematologic: Yes blood thinners, No blood disorders, No bleeding, No anemia, No blood clots Neuro Neurologic: No system reviewed and no additional complaints, except as docu, No as per HPI, No abnormal walking, No abnormal hearing, No abnormal movements, No abnormal speech, No behavioral changes, No burning sensations, No confusion, No seizure-like activity, No unsteadiness, No dizziness, No localized weakness, No frequent falls, No headache(s), No lack of coordination, No loss of vision, No memory loss, Yes numbness, No other visual disturbances, No radiating pain, No restless legs, No sensory deficit, No fainting, Yes tingling, No tremor(s), No weakness, No other Exam Const General: cooperative, comfortable, no acute distress Nutritional Appearance: obese Orientation: alert, awake Chest Breast Palpation: No nipple discharge Other: Increased anterior posterior diameter Resp Effort & Inspection: normal respiratory effort Auscultation: clear to auscultation bilaterally Cardio Heart Sounds: no murmurs Other: Irregular GI Palpation: soft, no hepatosplenomegaly Other: Overweight, nontender, no mass, not expansile, bowel sounds nonspecific Other: No gross inguinal defects Neuro General: alert, awake, oriented x3 Extrem Other: Mild edema bilateral lower extremities Psych Affect: normal affect Assessment & Plan Problems 1. Constipation, unspecified constipation type K59.00 Plan Dramatic change of bowel habits with acute constipation of undetermined etiology. Single episode of rectal bleeding. Recommend the patient a colonoscopy with possible biopsy or polypectomy as indicated. We will anticipate a 2-day bowel prep. The patient has mild renal insufficiency. He is on Xarelto which we will hold for 48 hours. He has had an opportunity to ask and have questions answered. He is well aware of the technique, benefit, risk. No guarantees of success have been offered. If the colonoscopy is absolutely unremarkable might consider proceeding with abdominal pelvic CT scan based upon the acuteness of the change. I very much appreciate the kind opportunity of assisting with his surgical care CC: Dr. Jose C Shine, SUHAIL Shine M.D., F.A.C.S. Coding Level of Care Code 02553 Diagnoses Constipation, unspecified constipation type K59.00 ??Constipation type: unspecified constipation type 04/19/19 1510 <Electronically signed by Mo morales MD> Date _ Mo Shine MD Cosigner Signature: Date (if applicable) CC: Jose C Shine III, MD ~ I have re-examined the patient. There are no clinical changes since date of exam.
[2019-04-24 05:44] VITALS: BP 146/67; PULSE 55; RESP 18; TEMP 36.2; O2SAT 95; BMI 33.0
[2019-04-24] MEDS: Lactated Ringers 1,000 ML 100 ML IV (05:58)
--- NOTE | 2019-04-24 06:30 | COLBX_PTH ---
PATIENT: ROBERTO ALAS LOC: EN U#:[id number] AGE/SX: 83/M ROOM: RE04/24/[address]: Dr. Mo Shine MD : 1935 BED: DIS: 04/24/2019 SPEC #: [id number] RECD: 04/24/19 11:35 STATUS: FERNANDEZ ALDO #: [id number] JACQUI: 04/24/19 06:[address]: Mo Shine DEPT: SURGICAL PATHOLOGY RECD BY: Jimbo Valdez ENTERED: 04/24/19 12:08 SP TYPE: COLON BX OTHR DR: Dr. Jose C Shine III, MD Tissues: A - Rectosigmoid junction B - Rectum, NOS Procedures: Surgery Specimen Level IV HEADER OPERATION: Colonoscopy ([facility]) PRE-OP DIAGNOSIS: Constipation TISSUE SUBMITTED: A - Rectosigmoid polyps x2 biopsy, B - Rectal polyp biopsy MICROSCOPIC DIAGNOSIS A. Rectosigmoid polyps, biopsy: Fragments of tubular adenoma. Hyperplastic polyp. B. Rectal polyp, biopsy: Focal hyperplastic change. AM:kim 04/25/19 MICROSCOPIC DESCRIPTION Slides are reviewed. GROSS DESCRIPTION A - Received in fixative is one container labeled with the patient's name and designated rectosigmoid polyp biopsy. The specimen consists of multiple irregular fragments of light [place]is soft tissue that in aggregate measure 1 x 0.3 x 0.2 cm. The specimen is totally submitted in one cassette. B - Received in fixative is one container labeled with the patient's name and designated rectal polyp biopsy. The specimen consists of two irregular fragments of light [place] soft tissue that in aggregate measure 0.5 x 0.2 x 0.1 cm. The specimen is totally submitted in one cassette. / SJ:kim 04/24/19 TC:5 [facility]: [id number] x2
[2019-04-24 06:58] VITALS: BP 106/56; BP 146/67; PULSE 53; RESP 16; TEMP 37.2; O2SAT 97
[2019-04-24 07:00] VITALS: BP 106/58; BP 146/67; PULSE 54; RESP 16; O2SAT 96
[2019-04-24 07:05] VITALS: BP 108/64; BP 146/67; PULSE 52; RESP 16; O2SAT 96
[2019-04-24 07:09] VITALS: BP 117/64; BP 146/67; PULSE 54; RESP 16; TEMP 36.7; O2SAT 97
[2019-04-24 08:04] VITALS: BP 146/67
--- NOTE | 2019-04-25 09:12 | OP.ENDO_ITS ---
04/25/2019 Jose C Shine [address] [place] [address] Re : Colonoscopy procedure for Jorge Arevalo Dear Dr. Shine This procedure was performed on Wednesday, April 24, 2019. My impressions and recommendations are as follows: Impressions : - Non-thrombosed internal hemorrhoids and internal hemorrhoids that prolapse with straining, but require manual replacement into the anal canal (Grade III) found on digital rectal exam. - One 4 mm polyp at the recto-sigmoid colon, removed with a cold biopsy forceps. Resected and retrieved. - One 6 mm polyp at the recto-sigmoid colon, removed with a cold biopsy forceps. Resected and retrieved. - One 4 mm polyp in the rectum, removed with a cold biopsy forceps. Resected and retrieved. - Diverticulosis in the entire examined colon. Recommendations : - Discharge patient to home. - Resume previous diet. - Continue present medications. - Miralax 1 capful (17 grams) in 8 ounces of water PO daily. - Repeat colonoscopy in 5 years for surveillance. - Return to my office in 1 week to discuss rectal bleeding and possible PPH stapled hemorrhoidopexy My findings are described in the full procedure note, which is enclosed. If I can be of further assistance, please feel free to contact me at Doctor phone number(s): Work: . Sincerely, Mo Shine MD 04/24/2019 7:00:41 AM This report has been signed electronically.
== END 2019-04-24 08:08 | disposition home or self-care (01) ==
LOC: EN 05:23 → AC 05:25
PROVIDERS: Family Provider Family Medicine; PCP Family Medicine; Referring Provider Family Medicine; Visit Provider Surgery
PROC: 0DJD8ZZ Inspection of Lower Intestinal Tract, Via Natural or Artificial Opening Endoscopic (ICD-10-PCS; CPT 45378; principal; 2019-04-24 06:25)
DX: D12.5 Benign neoplasm of sigmoid colon (principal); K59.00 Constipation, unspecified; K62.1 Rectal polyp; K57.30 Diverticulosis of large intestine without perforation or abscess without bleeding; K62.5 Hemorrhage of anus and rectum; K64.2 Third degree hemorrhoids; D12.7 Benign neoplasm of rectosigmoid junction; Z79.01 Long term (current) use of anticoagulants; I48.91 Unspecified atrial fibrillation; Z95.1 Presence of aortocoronary bypass graft; Z79.82 Long term (current) use of aspirin
CPT/HCPCS: 45380; 88305; J7120; J2405

== ENCOUNTER → 2019-08-10 13:59 | Outpatient (CLI) | payer MEDICARE, SELFPAY ==
[2019-08-10 13:04] VITALS: BMI 34.8
--- NOTE | 2019-08-10 14:14 | RAD_ITS ---
STUDY: X-RAY CHEST REASON FOR EXAM: Male, 84 years old. SHORTNESS OF BREATH, SWELLING TECHNIQUE: PA and lateral views of the chest. COMPARISON: Previous study of 11/10/2017 FINDINGS: There is a limited inspiration. The right hemidiaphragm is elevated. There is right basilar fibrosis and/or atelectasis, new in the interval. There is no demonstrated pleural abnormality. The heart size is borderline. Status post sternotomy changes are present. Normal mediastinum and alaina. Normal visualized pulmonary arteries. There are calcified plaques of the aortic arch. Normal visualized thoracic spine. Normal visualized ribs, clavicles, and shoulders. There is no demonstrated abnormality of the visualized soft tissue structures of the upper abdomen. RAD/Chest PA and Lateral IMPRESSION: Limited inspiration. Elevated right hemidiaphragm. Right basilar fibrosis or atelectasis, new in the interval. Borderline heart size. Status post sternotomy. Calcified plaques of the aortic arch. Electronically Signed: Claude Ross MD at 21:59 EST , Service support ,
[2019-08-10 14:45] LABS: Absolute Lymphocyte Count 1.69 X10^3/uL (0.83-4.51); Absolute Neutrophil Count 5.6 X10^3/uL (2.0-7.7); Basophil# 0.02 X10^3/uL; Basophil% 0.2 % (0-1); Eosinophil# 0.04 X10^3/uL; Eosinophils% 0.5 % (0-5); Hematocrit 40.7 % (40-54); Hemoglobin 13.1 g/dL (13.0-16.5); Lymphocyte # 1.69 X10^3/ul (4.0); Mean Corp Hgb Conc 32.2 g/dL (32-36); Mean Corpuscular Hgb 30.5 pg (27.0-32.0); Mean Corpuscular Volume 94.9 fL (80-94); Mean Platelet Vol. 9.5 fl (6.2-12.0); Monocyte# 0.64 X10^3/uL; NRBC Flagged by Analyzer 0 % (0-5); Neutrophil # 5.61 X10^3/uL (2.7-7.7); Neutrophil % 69.9 % (47-70); Platelet Count 171 K/mm3 (150-450); RBC Distribution Width CV 13.9 % (11.6-14.6); RBC Distribution Width SD 47.4 fl (35.1-43.9); Red Blood Count 4.29 M/mm3 (4.6-6.2)
[2019-08-10 15:05] LABS: Anion Gap 5 (5-15); BUN 30 mg/dL (7-18); BUN/Creat Ratio 13.2 RATIO (10-20); Calcium,Total 8.5 mg/dL (8.5-10.1); Chloride 104 mmol/L (98-107); Creatinine, Serum 2.27 mg/dL (0.70-1.30); EST Glomerular Filtration Rate 30 mL/min (>60); Est Glom Filt Rate - Afr Amer 36 mL/min (>60); Glucose 83 mg/dL (74-106); Potassium 4.2 mmol/L (3.5-5.1); Sodium Level 139 mmol/L (136-145)
[2019-08-10 15:14] LABS: BNP,B-Type NATRIURETIC PEPTIDE 638.8 pg/mL (0-100)
== END ==
PROVIDERS: Family Provider Family Medicine; PCP Family Medicine; Referring Provider Nurse Practitioner Family; Visit Provider Nurse Practitioner Family
DX: R06.09 Other forms of dyspnea (principal); I25.10 Atherosclerotic heart disease of native coronary artery without angina pectoris; I48.0 Paroxysmal atrial fibrillation; I50.32 Chronic diastolic (congestive) heart failure; I10 Essential (primary) hypertension; E78.00 Pure hypercholesterolemia, unspecified; Z95.1 Presence of aortocoronary bypass graft
CPT/HCPCS: 36415; 71046; 80048; 83880; 85025

== ENCOUNTER → 2019-08-16 09:17 | Outpatient (CLI) | payer MEDICARE, SELFPAY ==
[2019-08-10 13:04] VITALS: BMI 34.8
[2019-08-16 10:34] LABS: Anion Gap 5 (5-15); BUN 41 mg/dL (7-18); BUN/Creat Ratio 15.9 RATIO (10-20); Calcium,Total 9.7 mg/dL (8.5-10.1); Chloride 95 mmol/L (98-107); Creatinine, Serum 2.58 mg/dL (0.70-1.30); EST Glomerular Filtration Rate 26 mL/min (>60); Est Glom Filt Rate - Afr Amer 31 mL/min (>60); Glucose 112 mg/dL (74-106); Potassium 3.4 mmol/L (3.5-5.1); Sodium Level 136 mmol/L (136-145)
[2019-08-16 10:56] LABS: AST(SGOT) 25 U/L (15-37); Alanine Aminotransfer ALT/SGPT 38 U/L (16-61); Albumin, Serum 3.9 g/dL (3.2-5.0); Alkaline Phosphatase 128 U/L (45-117); Bilirubin, Direct 0.31 mg/dL (0.00-0.30); Cholesterol 164 mg/dL (200); Globulin 3.6 g/dL (2.2-4.2); High Density Lipoprotein 46 mg/dL; Protein, Total 7.5 g/dL (6.4-8.2); Triglycerides 169 mg/dL; Very Low Density Lipoprotein 34 mg/dL (5-40)
== END ==
PROVIDERS: Internal Medicine Cardiovascular Disease; Family Provider Family Medicine; PCP Family Medicine; Referring Provider Nurse Practitioner Family; Visit Provider Nurse Practitioner Family
DX: I11.0 Hypertensive heart disease with heart failure (principal); I25.10 Atherosclerotic heart disease of native coronary artery without angina pectoris; I48.0 Paroxysmal atrial fibrillation; I50.32 Chronic diastolic (congestive) heart failure; Z95.1 Presence of aortocoronary bypass graft; E78.5 Hyperlipidemia, unspecified
CPT/HCPCS: 36415; 80048; 80061; 80076

== ENCOUNTER → 2019-08-28 06:27 | Outpatient (CLI) | payer MEDICARE, SELFPAY ==
[2019-08-10 13:04] VITALS: BMI 34.8
--- NOTE | 2019-08-28 16:11 | STRESSREP ---
Stress Test Report Pharmacologic myocardial perfusion stress test. 84-year-old man with a history of coronary artery disease status post coronary bypass surgery, paroxysmal atrial fibrillation, hypertension, hyperlipidemia. Stress protocol: Resting EKG demonstrates sinus bradycardia with a rate of 56 bpm normal intervals are noted resting blood pressure is 114/76 mmHg. 0.4 mg of regadenoson was infused per usual protocol followed Intravenous saline flush injection continuous barrow worker helper was performed. The maximum heart rate attained was 63 bpm which was 45% of maximum predicted heart rate the maximum workload was 1 metabolic equivalent. At rest there were no ST or T wave changes noted suggest abnormal flow reserve at peak infusion nonspecific ST-T wave changes were noted with no meet the criteria for ischemia. The resting blood pressure was 114/76 final blood pressure was 120/68. Myocardial perfusion protocol. 13.9 mCi of technetium 99m sestamibi was injected at rest. 0.4 mg of regadenoson was infused per usual protocol peak infusion 41.7 mCi of technetium 99m sestamibi was injected stress images were obtained stress and rest images were reconstructed and compared in the short axis vertical long horizontal long axis. Gated images were also obtained per Perfusion SPECT analysis: Review of the images demonstrate normal perfusion in all areas of the myocardium except for the apex on the stress and rest images to a similar extent. The above is likely suggestive of an apical infarct. No reversibility is noted to suggest ischemia. Gated SPECT analysis: The gated ejection fraction is 84%. Conclusion: Pharmacologic myocardial perfusion stress test with no evidence of ischemia. Previous apical infarct is noted. Preserved ejection fraction.
== END ==
PROVIDERS: Family Provider Family Medicine; PCP Family Medicine; Referring Provider Nurse Practitioner Family; Visit Provider Nurse Practitioner Family
DX: R06.02 Shortness of breath (principal); I25.10 Atherosclerotic heart disease of native coronary artery without angina pectoris; I48.0 Paroxysmal atrial fibrillation; I50.32 Chronic diastolic (congestive) heart failure; I27.21 Secondary pulmonary arterial hypertension; R06.09 Other forms of dyspnea; E78.5 Hyperlipidemia, unspecified; Z95.1 Presence of aortocoronary bypass graft; I11.0 Hypertensive heart disease with heart failure
CPT/HCPCS: 78452; 93017; A9500; A4216; J2785

== ENCOUNTER → 2019-09-05 11:10 | Outpatient (CLI) | payer MEDICARE, SELFPAY ==
[2019-08-31 14:16] VITALS: BMI 33.3
[2019-09-05 12:50] LABS: Anion Gap 7 (5-15); BUN 30 mg/dL (7-18); BUN/Creat Ratio 11.1 RATIO (10-20); Calcium,Total 9.4 mg/dL (8.5-10.1); Chloride 106 mmol/L (98-107); EST Glomerular Filtration Rate 24 mL/min (>60); Est Glom Filt Rate - Afr Amer 29 mL/min (>60); Glucose 89 mg/dL (74-106); Potassium 4.1 mmol/L (3.5-5.1); Sodium Level 140 mmol/L (136-145)
== END ==
LOC: LAB 11:13
PROVIDERS: PCP Family Medicine; Referring Provider Nurse Practitioner Family; Visit Provider Nurse Practitioner Family
DX: I25.10 Atherosclerotic heart disease of native coronary artery without angina pectoris (principal); I10 Essential (primary) hypertension; E78.5 Hyperlipidemia, unspecified; R06.09 Other forms of dyspnea; Z95.1 Presence of aortocoronary bypass graft
CPT/HCPCS: 36415; 80048

== ENCOUNTER → 2019-09-14 09:42 | Outpatient (CLI) | payer MEDICARE, SELFPAY ==
[2019-08-31 14:16] VITALS: BMI 33.3
[2019-09-14 11:10] LABS: BNP,B-Type NATRIURETIC PEPTIDE 618.2 pg/mL (0-100)
== END ==
PROVIDERS: PCP Family Medicine; Referring Provider Nurse Practitioner Family; Visit Provider Nurse Practitioner Family
DX: I25.10 Atherosclerotic heart disease of native coronary artery without angina pectoris (principal); Z95.1 Presence of aortocoronary bypass graft; I50.32 Chronic diastolic (congestive) heart failure; I48.0 Paroxysmal atrial fibrillation
CPT/HCPCS: 36415; 83880

== ENCOUNTER → 2019-09-15 11:16 | Outpatient (CLI) | payer MEDICARE, SELFPAY ==
[2019-08-31 14:16] VITALS: BMI 33.3
== END ==
PROVIDERS: PCP Family Medicine; Referring Provider Nurse Practitioner Family; Visit Provider Nurse Practitioner Family
DX: I48.0 Paroxysmal atrial fibrillation (principal); I50.32 Chronic diastolic (congestive) heart failure; R00.1 Bradycardia, unspecified
CPT/HCPCS: 93225; 93226

== ENCOUNTER → 2019-10-03 08:37 | Outpatient (CLI) | payer MEDICARE, SELFPAY ==
[2019-08-31 14:16] VITALS: BMI 33.3
--- NOTE | 2019-10-06 10:21 | PFT ---
INTRODUCTION: The patient is an 84-year-old male that presents for pulmonary function studies secondary to a diagnosis of dyspnea. Respiratory therapy reports good patient effort. Bronchodilators were used during testing. INTERPRETATION: Forced expiration spirometry demonstrates no evidence of a large airways obstructive ventilatory defect. There was no significant response to aerosolized bronchodilators. Spirograms are of good quality and plateau normally. Body plethysmography was performed and reveals lung volumes to be within normal limits. Diffusing capacity by single breath CO is also within normal limits. IMPRESSION: Normal pulmonary function studies.
== END ==
PROVIDERS: PCP Family Medicine; Referring Provider Nurse Practitioner Family; Visit Provider Nurse Practitioner Family
DX: R06.09 Other forms of dyspnea (principal); I25.10 Atherosclerotic heart disease of native coronary artery without angina pectoris; I48.0 Paroxysmal atrial fibrillation; I50.32 Chronic diastolic (congestive) heart failure; I27.21 Secondary pulmonary arterial hypertension; E78.5 Hyperlipidemia, unspecified; Z95.1 Presence of aortocoronary bypass graft; I11.0 Hypertensive heart disease with heart failure
CPT/HCPCS: 94060; 94726; 94729

== ENCOUNTER → 2019-11-02 09:53 | Outpatient (CLI) | payer MEDICARE, SELFPAY ==
[2019-08-31 14:16] VITALS: BMI 33.3
[2019-11-02 10:40] LABS: Anion Gap 6 (5-15); BUN 35 mg/dL (7-18); BUN/Creat Ratio 15.6 RATIO (10-20); Calcium,Total 8.8 mg/dL (8.5-10.1); Chloride 105 mmol/L (98-107); Creatinine, Serum 2.24 mg/dL (0.70-1.30); EST Glomerular Filtration Rate 30 mL/min (>60); Est Glom Filt Rate - Afr Amer 36 mL/min (>60); Glucose 117 mg/dL (74-106); Potassium 4.4 mmol/L (3.5-5.1); Sodium Level 140 mmol/L (136-145)
== END ==
PROVIDERS: PCP Family Medicine; Referring Provider Nurse Practitioner Family; Visit Provider Nurse Practitioner Family
DX: I25.10 Atherosclerotic heart disease of native coronary artery without angina pectoris (principal); I50.32 Chronic diastolic (congestive) heart failure; I27.21 Secondary pulmonary arterial hypertension; E78.5 Hyperlipidemia, unspecified; R06.09 Other forms of dyspnea; I48.0 Paroxysmal atrial fibrillation; Z95.1 Presence of aortocoronary bypass graft
CPT/HCPCS: 36415; 80048

== ENCOUNTER 2020-04-18 16:19 | Emergency (ER) | payer MEDICARE, SELFPAY ==
[2019-08-31 14:16] VITALS: BMI 33.3
[2020-04-18 16:19] VITALS: BP 129/88; PULSE 125; RESP 20; TEMP 36.8; O2SAT 99; BMI 32.4
--- NOTE | 2020-04-18 16:32 | ED.RN ---
turntable operator discussed with patient his elevated hr. asked if he has hx of afib as hr fluctuating between 90-120's. asked pt if he was having chest pain. he said i am having some pressure, not pain, it just started.
--- NOTE | 2020-04-18 16:51 | US_ITS ---
STUDY: VENOUS DOPPLER ULTRASOUND - LEFT LOWER EXTREMITY REASON FOR EXAM: Male, 84 years old. LT LOWER CALF REDNESS TECHNIQUE: Ultrasound evaluation of the deep vein system to include negron-scale imaging and compression was performed. Negron-scale imaging and Doppler sonographic evaluation, including duplex spectral analysis and qualitative color flow sonography, was performed. COMPARISON: None. FINDINGS: Common Femoral Vein: Normal compression, spontaneity and augmentation. Normal color Doppler. Common Femoral Vein/Greater Saphenous Junction: Normal compression, spontaneity and augmentation. Normal color Doppler. Deep Femoral Vein: Normal compression, spontaneity and augmentation. Normal color Doppler. Femoral Proximal: Normal compression, spontaneity and augmentation. Normal color Doppler. Femoral Middle: Normal compression, spontaneity and augmentation. Normal color Doppler. Femoral Distal: Normal compression, spontaneity and augmentation. Normal color Doppler. Popliteal Vein: Normal compression, spontaneity and augmentation. Normal color Doppler. Posterior Tibial Vein: Normal compression, spontaneity and augmentation. Normal color Doppler. Peroneal Vein: Normal compression, spontaneity and augmentation. Normal color Doppler. US/Venous Duplex Imag/Limited/Uni IMPRESSION: Normal venous Doppler ultrasound of the lower extremity. Electronically Signed: Navneet Bhandari MD at 18:07 EDT , Service support ,
--- NOTE | 2020-04-18 16:59 | ED.VIS.GEN ---
History of Present Illness Chief Complaint: Cellulitis Detail of Chief Complaint: Cellulitis versus DVT Informant: Patient, Significant Other, PCP Onset: Days Context: Sudden Onset Timing: Continuous Quality: Redness and swelling Location: Left leg Current Severity: Moderate Maximum Severity: Moderate Worsened by: Nothing Relieved by: Nothing Associated Symptoms: Calf pain Narrative: Patient is an elderly male who presents for evaluation of cellulitis versus DVT. He has no prior history of VTE. He has no risk factors for VTE. He denies fever, chills night sweats. He denies chest pain with breathing. States he has some palpitations. Triage nurse ordered EKG because heart rate was 125 at triage. He does have history of paroxysmal atrial fibrillation. He is on Xarelto. Patient denies headache, visual, ocular auditory symptoms. Patient denies orthopnea or PND. Patient denies black or maroon stool. Patient denies dysuria, frequency, urgency or hematuria. Prior similar symptoms: No Recent Illness/Hospitalization: No - Past Medical History (1) Atherosclerosis of coronary artery of [place] heart without angina pectoris Status: Chronic Comment: S/P CABG in 1997 with GONZALES to LAD, SVG to LCx, and SVG to RCA; (2) Chronic diastolic heart failure Status: Chronic (3) Essential (primary) hypertension Status: Chronic (4) H/O coronary artery bypass surgery Status: Chronic Comment: CABG X 3 GONZALES-LAD, SVG-CX, SVG-RCA (5) Paroxysmal atrial fibrillation Status: Chronic (6) Secondary pulmonary arterial hypertension Status: Chronic (7) FPC current use of anticoagulant Status: Acute Past Medical History - Allergies and Home Meds Allergies/Adverse Reactions: Allergies spironolactone Adverse Reaction (Verified 04/18/20 16:23) Elevated Potassium Elevated Potassium Primary Care Physician: Jose C Shine III, MD [Primary Care Provider] - Prior records reviewed: Yes Surgical History: - - Pacemaker Lives: Spouse/ Significant Other Smoking Status: Never smoker Alcohol: None Drugs: None Review of Systems General: Denies: Chills, Fever, Malaise, Subjective, Sweats Eyes: Denies: Visual changes - bilaterally, Blurred Vision - bilaterally ENT: Denies: Rhinorrhea, Sore throat Cardiovascular: Reports: Chest pain, Palpitations, Heart racing Respiratory: Denies: Dyspnea, Cough, Sputum, Dyspnea on exertion, Orthopnea, Paroxysmal nocturnal dyspnea Gastrointestinal: Denies: Abdominal pain, Nausea, Vomiting, Diarrhea, Melena, Hematochezia Genitourinary: Denies: Dysuria, Hematuria, Frequency Musculoskeletal: Reports: Swelling, Extremity Pain. Denies: Myalgias, Arthralgias, Neck pain, Back pain, -, - Skin: Reports: Rash. Denies: Abscess, Abrasions, Wounds, -, - Neurological: Denies: Weakness, Parasthesia, Numbness Endocrine: Denies: Polyuria, Polydipsia Hematologic: Denies: Easy bruising, Easy bleeding Physical Exam Vital Signs/Narrative: Vital Signs Temp Pulse Resp BP Pulse Ox 04/18/20 16:19 98.2 F 125 H 20 H 129/88 H 99 Inital Vital Signs reviewed: Yes General: Well nourished, Well developed, Obese, No Acute Distress Head: Normocephalic, Atraumatic Eyes: Perrl, EOMI. Negative for: Pale conjunctiva, Scleral icterus ENT: Moist mucous membranes, No rhinorrhea Cardiovascular: No murmurs, Irregular, Tachycardia Abdomen: Soft, Nontender, Nondistended, Normal bowel sounds Rectal: Deferred Back: Nontender, Normal Inspection Extremities: Tenderness, Edema, - - There is asymmetry and discoloration of left leg. There is tenderness of the calf. This swelling is unilateral. There is no popliteal or inguinal lymphadenopathy. There is no lymphangitis. There is no induration or warmth to touch. Skin: Normal color, Rash Neurological: Alert, Oriented x3, Cranial nerves II-XII grossly intact, Normal Strength, Normal Sensation Psychological: Normal affect, Normal Mood Diagnostic/Tx/Re-eval Impressions Venous Duplex 04/18/20 16:51 IMPRESSION: Normal venous Doppler ultrasound of the lower extremity. Electronically Signed: Navneet Bhandari MD at 18:07 EDT , Service support , Laboratory Results 04/18/20 04/18/20 04/18/20 17:06 17:06 17:06 WBC 6.6 RBC 4.56 L Hgb 14.5 Hct 42.3 MCV 92.8 MCH 31.8 MCHC 34.3 RDW Std Deviation 45.8 H RDW Coeff of Radha 13.4 Plt Count 160 MPV 9.8 Immature Gran % (Auto) 0.800 Neut % (Auto) 66.8 Lymph % (Auto) 25.8 Kimble % (Auto) 5.7 Eos % (Auto) 0.6 Baso % (Auto) 0.3 Absolute Neuts (auto) 4.4 Absolute Lymphs (auto) 1.71 Nucleated RBC % 0 D-Dimer Quant (PE/DVT) 0.46 Sodium 137 Potassium 3.3 L Chloride 99 Carbon Dioxide 30.0 Anion Gap 8 BUN 46 H Creatinine 2.69 H Estim Creat Clear Calc 20.48 Est GFR (MDRD) Af Amer 29 L Est GFR (MDRD) Non-Af 24 L BUN/Creatinine Ratio 17.1 Glucose 113 H Calcium 9.7 Since the venous duplex study is negative for blood clot and there is erythema this may represent venous stasis versus cellulitis. Will place on antibiotics. If no improvement this most likely is venous stasis dermatitis. - Medical Decision Making Frontal diagnosis is cellulitis versus DVT. With this being unilateral with out rales or orthopnea doubt CHF. Patient had an ER passport document filled out. Apparently the differential there was concern for CHF. Appropriate blood work was obtained and venous duplex study was obtained as well since patient's well score is 3. ED Disposition - Plan for ED Patient: Disposition: Home or Assisted Living Diagnosis: Cellulitis of leg without foot, left Instructions: ED Cellulitis Prescriptions: Smz/Tmp Ds [Bactrim Ds] 1 tab PO BID #14 tab Transmission Status: Pending to [facility] Cephalexin [Keflex] 500 mg PO Q6 #28 cap Transmission Status: Pending to [id number] Referrals: Jose C Shine III, MD [Primary Care Provider] - 2 Days for wound check
[2020-04-18 17:08] VITALS: BP 129/88; PULSE 125; RESP 20; TEMP 36.8
[2020-04-18 17:37] LABS: Absolute Lymphocyte Count 1.71 X10^3/uL (0.83-4.51); Absolute Neutrophil Count 4.4 X10^3/uL (2.0-7.7); Basophil# 0.02 X10^3/uL; Basophil% 0.3 % (0-1); Eosinophil# 0.04 X10^3/uL; Eosinophils% 0.6 % (0-5); Hematocrit 42.3 % (40-54); Hemoglobin 14.5 g/dL (13.0-16.5); Lymphocyte # 1.71 X10^3/ul (4.0); Lymphocyte % 25.8 % (19-41); Mean Corp Hgb Conc 34.3 g/dL (32-36); Mean Corpuscular Hgb 31.8 pg (27.0-32.0); Mean Corpuscular Volume 92.8 fL (80-94); Mean Platelet Vol. 9.8 fl (6.2-12.0); Monocyte# 0.38 X10^3/uL; Monocyte% 5.7 % (0-10); NRBC Flagged by Analyzer 0 % (0-5); Neutrophil # 4.43 X10^3/uL (2.7-7.7); Neutrophil % 66.8 % (47-70); Platelet Count 160 K/mm3 (150-450); RBC Distribution Width CV 13.4 % (11.6-14.6); RBC Distribution Width SD 45.8 fl (35.1-43.9); Red Blood Count 4.56 M/mm3 (4.6-6.2); White Blood Count 6.6 K/mm3 (4.4-11.0)
[2020-04-18 17:49] LABS: Anion Gap 8 (5-15); BUN 46 mg/dL (7-18); BUN/Creat Ratio 17.1 RATIO (10-20); Calcium,Total 9.7 mg/dL (8.5-10.1); Chloride 99 mmol/L (98-107); Creatinine, Serum 2.69 mg/dL (0.70-1.30); EST Glomerular Filtration Rate 24 mL/min (>60); Est Glom Filt Rate - Afr Amer 29 mL/min (>60); Estimated Creatinine Clearance 20.48 ml/min; Glucose 113 mg/dL (74-106); Potassium 3.3 mmol/L (3.5-5.1); Sodium Level 137 mmol/L (136-145)
[2020-04-18 17:56] LABS: D-Dimer Quantitative (DVT/PE) 0.46 FEU/ug/m (0.27-0.49)
[2020-04-18 18:27] VITALS: BP 111/66; PULSE 114; PULSE 98; RESP 18; RESP 20; TEMP 36.9; O2SAT 95; O2SAT 97
[2020-04-18] MEDS: Smz/Tmp Ds Tablet 1 TABLET PO (18:34)
[2020-04-18] MEDS: Cephalexin 250 MG Capsule 500 MG PO (18:34)
[2020-04-18] MEDS: Metoprolol Tartrate 5 MG/5 ML Vial IV (18:34)
== END 2020-04-18 18:42 | disposition home or self-care (01) ==
PROVIDERS: Emergency Provider Emergency Medicine; PCP Family Medicine
DX: L03.116 Cellulitis of left lower limb (principal); E66.9 Obesity, unspecified; Z95.0 Presence of cardiac pacemaker; Z95.1 Presence of aortocoronary bypass graft; Z79.01 Long term (current) use of anticoagulants; I11.0 Hypertensive heart disease with heart failure; I25.10 Atherosclerotic heart disease of native coronary artery without angina pectoris; I27.21 Secondary pulmonary arterial hypertension; I48.0 Paroxysmal atrial fibrillation; I50.32 Chronic diastolic (congestive) heart failure
CPT/HCPCS: 80048; 85025; 85379; 93971; 96374; 99284; A4216

== ENCOUNTER → 2020-05-03 14:52 | Outpatient (CLI) | payer MEDICARE, SELFPAY ==
[2020-05-03 13:48] VITALS: BMI 32.6
[2020-05-03 15:58] LABS: AST(SGOT) 24 U/L (15-37); Alanine Aminotransfer ALT/SGPT 28 U/L (16-61); Albumin, Serum 3.7 g/dL (3.2-5.0); Alkaline Phosphatase 91 U/L (45-117); Anion Gap 5 (5-15); BUN 40 mg/dL (7-18); BUN/Creat Ratio 15.1 RATIO (10-20); Bilirubin, Direct 0.31 mg/dL (0.00-0.30); Calcium,Total 8.7 mg/dL (8.5-10.1); Chloride 105 mmol/L (98-107); Cholesterol 133 mg/dL (200); Creatinine, Serum 2.65 mg/dL (0.70-1.30); EST Glomerular Filtration Rate 25 mL/min (>60); Est Glom Filt Rate - Afr Amer 30 mL/min (>60); Globulin 3.2 g/dL (2.2-4.2); Glucose 95 mg/dL (74-106); High Density Lipoprotein 41 mg/dL; Potassium 4.3 mmol/L (3.5-5.1); Protein, Total 6.9 g/dL (6.4-8.2); Sodium Level 139 mmol/L (136-145); Triglycerides 174 mg/dL; Very Low Density Lipoprotein 35 mg/dL (5-40)
== END ==
PROVIDERS: PCP Family Medicine; Referring Provider Physician Assistant Medical; Visit Provider Physician Assistant Medical
DX: I25.10 Atherosclerotic heart disease of native coronary artery without angina pectoris (principal); I50.32 Chronic diastolic (congestive) heart failure; I11.0 Hypertensive heart disease with heart failure
CPT/HCPCS: 36415; 80048; 80061; 80076

== ENCOUNTER 2020-05-07 10:17 | Day surgery (SDC) | payer MEDICARE, SELFPAY ==
[2020-05-03 13:48] VITALS: BMI 32.6
[2020-05-06 09:07] VITALS: BMI 32.6
--- NOTE | 2020-05-07 12:00 | HP_ITS ---
HPI HPI History of Present Illness Surgical H&P: Yes Details: ROBERTO ALAS, is a 84 M who presents to the office today for concerns over his atrial fibrillation. He has a history of coronary artery disease status post coronary artery bypass surgery left internal mammary artery to the left anterior descending artery, saphenous vein graft to circumflex artery, and to the right coronary artery, paroxysmal atrial fibrillation, hypertension, and hyperlipidemia. Previously we have been working with patient on his chronic shortness of breath. We last adjusted his medications in November. He then presented to the emergency room earlier this month for cellulitis and it was noted that his heart rate was in the 120s. He feels that he was in Afib prior to his ER stay. We have adjusted his metoprolol and his amiodarone. Previously it was decreased due to shortness of breath and low heart rate. Plan is to attempt a cardioversion in the near future. He feels that he is more SOB with his atrial fib. Needs to stop walking twice to the mailbox. He feels that he is more fatigued. He is not orthopneic. He does not have any chest pain. He does not have any edema. He does balance issues with arthritis. He is using his metolazone as needed. When he was taking it twice a week for a period of time he noted that he would be more lightheaded. Intake Vital Signs 05/03/20 Height 5 ft 8 in 05/03/20 Weight: 215 lb 05/03/20 BMI 32.6 05/03/20 BP 123/79 H 05/03/20 Blood Pressure Location Lt brachial 05/03/20 Position Sitting 05/03/20 Respiration 18 05/03/20 Pulse 91 05/03/20 Pulse Source Monitor 05/03/20 Pulse Oximetry (%) 99 Intake Visit Reasons: LALITHA Valenzuela Health Information Coder Required: No Is patient in pain?: No Allergies spironolactone Adverse Reaction (Verified 05/03/20 13:48) Elevated Potassium Medications Multivit-Min/FA/Lycopene/Lut [Centrum Silver Tablet] 1 tab PO DAILY 05/24/13 [History Confirmed 05/03/20] aspirin 81 mg tablet,delayed release 81 mg PO QDAY #90 tab 07/14/19 [Rx Confirmed 05/03/20] lovastatin 40 mg tablet 40 mg PO QHS #90 tab 07/14/19 [Rx Confirmed 05/03/20] furosemide 80 mg tablet 80 mg PO DAILY tab 10/13/19 [History Confirmed 05/03/20] potassium chloride 10 mEq tablet,extended release 10 meq PO BID #180 tab 11/09/19 [Rx Confirmed 05/03/20] rivaroxaban 20 mg tablet 20 mg PO DAILY #90 tab 11/20/19 [Rx Confirmed 05/03/20] metolazone 2.5 mg tablet 2.5 mg PO .Twice a week #10 tab 12/07/19 [Rx Confirmed 05/03/20] amiodarone 200 mg tablet 200 mg PO QDAY #90 tab 04/24/20 [Rx Confirmed 05/03/20] handicap placard See Rx Instructions .ROUTE .COMPLEX #1 ea 05/03/20 [Rx Confirmed 05/03/20] metoprolol tartrate 25 mg tablet 25 mg PO BID #180 tab 05/03/20 [Rx Confirmed 05/03/20] PFSH Medical History Atherosclerosis of coronary artery of [place] heart without angina pectoris (Chronic) Paroxysmal atrial fibrillation (Chronic) Chronic diastolic heart failure (Chronic) Secondary pulmonary arterial hypertension (Chronic) Hyperlipidemia (Chronic) Body mass index (bmi) 32.0-32.9, adult (Chronic) Carotid bruit (Chronic) Constipation (Chronic) Hypotension (Resolved) Palpitations (Resolved) Shortness of breath (Resolved) Surgical History H/O coronary artery bypass surgery (Chronic 09/20/97) History of appendectomy (Chronic) History of left heart catheterization (Chronic ~12/12/14) History of thymectomy (Chronic) Hx of cholecystectomy (Chronic) Family History Mother CAD (coronary artery disease) Brother CAD (coronary artery disease) Social History (Updated 05/03/20 @ 15:31 by Elena HOFFMAN, PA) Smoking Status: Never smoker alcohol intake: never substance use type: does not use caffeine: Yes Type: coffee Number of servings: 1 what type of physical activity do you participate in: none seatbelt use: always do you feel safe at home: Yes ROS Const Const: Positive for fatigue and weakness; negative for fever(s) or headache(s) Eyes Eyes: Negative for blind spots, loss of peripheral vision or transient loss of vision ENT ENT: Negative for headache(s) Cardio Chest Pain: No Palpitations: No Edema: None Muscle aches with walking: None Resp Respiratory: Positive for SOB with activity; negative for SOB at rest, SOB orthopnea\SOB lying down or Cough GI GI: Negative nausea, vomiting, heartburn or vomiting blood/hematemesis : Negative for hematuria Musc Musc: Negative for muscle aches/ myalgia Neuro Neuro: Positive for weakness; negative for headache(s) Efrain Hematologic/Lymphatic: Negative for easy bleeding Endo Endo: Positive for fatigue Cardiology Exam Const Appearance: cooperative, no acute distress, well developed and frail appearing Nutritional Appearance: average body habitus Orientation: alert, awake and oriented x3 Head Head: normocephalic and atraumatic Mouth: moist mucous membranes Eyes General: appearance normal, both eyes and all related structures Conjunctivae: conjunctivae normal Pupils: PERRL EOM: EOM intact bilaterally Neck Neck: normal visual inspection, no lymphadenopathy and no JVD Carotids: Negative bruit Neck Mass: Negative Neck mass Chest Chest inspection: normal inspection of the chest and symmetric chest movement Auscultation: Bilateral: Clear to Auscultation Cardio Palpation: normal PMI Rate: regular rate Rhythm: irregularly irregular Heart sounds: S1 normal and S2 normal; negative rub, gallop or murmur GI GI: normal to inspection, soft, no hepatosplenomegaly and bowel sounds present; negative tender Neuro General: alert, awake, oriented x3, CN's II-XI intact bilaterally and moves all extremities Extremities Pulses: Normal: Right Posterior Tibial Pulse, Left Posterior Tibial Pulse, Right Radial Pulse, Left Radial Pulse Lower Extremity Edema: Trace: Bilateral, Color Changes: Bilateral Psych Psychological: normal affect Assessment & Plan 1. Persistent atrial fibrillation I48.19 Plan Patient's atrial fibrillation does appear more persistent. Feel that he symptomatic with his atrial fibrillation. Would like to pursue a cardioversion. This will be scheduled for the near future. Patient's potassium was on the low side while he was in the emergency room. Would like to repeat his labs. Patient Instructions Your cardioversion is scheduled for 05/07. You need to arrive at 1030 and your procedure will be at noon. Nothing to eat or drink after midnight. You will need a hazmat tanker driver that day. In the morning take your amiodarone, ASA, metoprolol and xarelto. 2. Atherosclerosis of [place] coronary artery of [place] heart without angina pectoris I25.10 S/P CABG in 1997 with GONZALES to LAD, SVG to LCx, and SVG to RCA; Plan Patient did undergo a pharmacologic stress test which was negative for ischemia. He has not had any angina type symptoms Orders Orders: Lipid Profile Today Liver Profile Today 3. Essential hypertension I10 Plan Blood pressure is well controlled on current medications, we do not recommend any changes at this time. Orders Orders: Basic Metabolic Profile (BMP) Today Lipid Profile Today Liver Profile Today 4. Pure hypercholesterolemia E78.00 Plan He is due to have this done in the future. He will continue with his moderate intensity statin. 5. Chronic diastolic heart failure I50.32 Plan Patient will continue with current dose of diuretics. He does use his metolazone on an as-needed basis. He does have renal insufficiency. We will need to continue to monitor this closely. May need to consider establishing with a wreath machine operator. Orders Orders: Lipid Profile Today Liver Profile Today Plan Detail Other Orders Orders: 12 Lead EKG performed by BMS Today I48.0 Other Medications New: [handicap placard] duration: lifet dorothy Dx: can not walk without assistance.; 1 ea 0RF Changed: From: metoprolol tartrate 12.5 mg (1/2 x 25 mg) PO BID 90 tabs 3RF To: metoprolol tartrate 25 mg PO BID 180 tabs 3RF Follow Up 05/03/20 (keep as is) 05/03/20 (cardioversion is 05/07- will need a a one week EKG) Coding Level of Care Code Off vis,est,level 4 Diagnoses Persistent atrial fibrillation I48.19 Atherosclerosis of [place] coronary artery of [place] heart without angina pectoris I25.10 ??Coronary Disease-Associated Artery/Lesion type: [place] artery Essential hypertension I10 Pure hypercholesterolemia E78.00 ??Hyperlipidemia type: pure hypercholesterolemia Chronic diastolic heart failure I50.32 Coding Level of Care Code Off vis,est,level 4 Diagnoses Persistent atrial fibrillation I48.19 Atherosclerosis of [place] coronary artery of [place] heart without angina pectoris I25.10 ??Coronary Disease-Associated Artery/Lesion type: [place] artery Essential hypertension I10 Pure hypercholesterolemia E78.00 ??Hyperlipidemia type: pure hypercholesterolemia Chronic diastolic heart failure I50.32 Supplemental Info Supplemental Information Echocardiogram in 07/13/2018 demonstrated: Normal LV size. Left ventricular systolic function is normal. The estimated ejection fraction is 65 %. Transmitral diastolic flow velocities suggest severe (stage 3) diastolic dysfunction Pulmonary artery systolic pressure is 45 mmHg. Trisinus/trileaflet aortic valve. Small strand or lambls noted on the aortic valve measuring 0.5cm Contrast injection was performed. Stress test from 08/28/2019: Conclusion: Pharmacologic myocardial perfusion stress test with no evidence of ischemia. Previous apical infarct is noted. Preserved ejection fraction. Labs LDL Cholesterol Pending 05/03/20 HDL Cholesterol Pending 05/03/20 Triglycerides Pending 05/03/20 VLDL Cholesterol Pending 05/03/20 Diagnostics Electrocardiogram 05/03/20 Stress Test Nuclear Medicine 08/28/19 Stress Test 08/28/19 Pulmonary Pulmonary Function Test 10/06/19 COVID (Procedure Consent) Procedure Criteria Procedure Criteria: Yes Elective The surgeon/proceduralist and patient have discussed in detail the risk of exposure to and/or potential harm posed by the COVID-19 virus with having a surgery/procedure at this time versus the risk of? delaying the surgery/procedure. It is not possible to know either the risk of delaying the surgery or procedure or chance of getting an infection with perfect accuracy, but a joint decision was made between the patient and the surgeon/proceduralist ?to proceed at this time with the scheduled surgery/procedure as indicated on the consent form.
--- NOTE | 2020-05-07 12:57 | CARDIOVERS ---
Cardioversion Cardioversion: Procedure: DC Cardioversion Indication: Symptomatic atrial fibrillation [] Procedure Note: The patient was brought to the cardiac catheterization lab in the postabsorptive nonsedated state. The patient was seen by Dr. Mcdaniel of the critical care division [] . Patient was noted to have normal global ejection fraction of 60% ] and has been on therapeutic anticoagulation as well as [Amiodarone]. Anterior posterior pads were applied. [200 J] of synchronized DC cardioversion energy were applied after the patient was administered 40] of [intravenous propofol]. The patient reverted to [sinus rhythm. Patient was then administered another [200 J] of synchronized DC cardioversion energy successfully converted to sinus rhythm. Plan: Continue [Amiodarone] Continue anticoagulation
--- NOTE | 2020-05-07 12:57 | PCM.OP.PRO ---
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 Status: Acute (3) Chronic diastolic heart failure Status: Chronic (4) Dyspnea on minimal exertion Status: Chronic (5) Essential (primary) hypertension Status: Chronic (6) H/O coronary artery bypass surgery Status: Chronic Comment: CABG X 3 GONZALES-LAD, SVG-CX, SVG-RCA (7) Hyperlipidemia Status: Chronic Qualifiers: (8) Secondary pulmonary arterial hypertension Status: Chronic Procedure Report Date of Procedure: 05/07/20 - Conscious sedation CONSCIOUS SEDATION REPORT BRIEF HISTORY OF PRESENT ILLNESS: The patient is an 84-year-old male who presented to [facility] for an elective outpatient cardioversion due to underlying atrial fibrillation. The patient reports no PO intake since midnight. The patient does not have a history of obstructive sleep apnea. The patient reports no history of smoking and COPD. The patient denies any recent constitutional symptoms such as fevers, chills, nausea or vomiting. The patient denies previous anesthetic complications. The patient is on Xarelto therapy for anticoagulation. The patient has had a cardioversion previously, approximately 2-1/2 years ago, and required 40 mg of propofol. Patient's last known ejection fraction was 65%. PHYSICAL EXAMINATION: VITAL SIGNS: Reviewed and were acceptable. GENERAL: The patient is a male, in no apparent distress, speaking in full sentences. HEENT: Normocephalic, atraumatic. Mucous membranes are moist and pink. Good mouth opening noted. Trachea is midline. Good neck mobility. MP II CHEST: S1, S2 irregularly irregular. No murmurs, rubs or gallops were noted. LUNGS: Clear to auscultation bilaterally without appreciable wheezes, rales or rhonchi. ABDOMEN: Soft, nontender, nondistended. Positive bowel sounds. EXTREMITIES: There is no clubbing, cyanosis or edema. ASA Class: II DESCRIPTION OF PROCEDURE: After confirmation of informed consent, the patient's anesthesia plan was reviewed in detail. Propofol was chosen. Risks and benefits were reviewed and the patient agreed to proceed. At 12:04 PM, the patient was given 40 mg of propofol. The patient achieved an appropriate level of sedation and received 1 attempt synchronized cardioversion, at [address] Russ at the bedside. This was successful in achieving normal sinus rhythm. The patient was monitored until 12:20 PM, at which time the patient reached their baseline mental status and function. The patient tolerated the procedure well. COMPLICATIONS: None ESTIMATED BLOOD LOSS: None RECOMMENDATIONS: Okay to recover in usual fashion. [id number]: Other Procedure See Report - [id number] - 16 min
== END 2020-05-07 13:15 | disposition home or self-care (01) ==
LOC: CLSP 10:17
PROVIDERS: PCP Family Medicine; Referring Provider Internal Medicine Cardiovascular Disease; Visit Provider Internal Medicine Cardiovascular Disease
DX: I48.19 Other persistent atrial fibrillation (principal); I11.0 Hypertensive heart disease with heart failure; E78.00 Pure hypercholesterolemia, unspecified; I50.32 Chronic diastolic (congestive) heart failure; I25.2 Old myocardial infarction; E78.5 Hyperlipidemia, unspecified; Z79.01 Long term (current) use of anticoagulants; Z79.82 Long term (current) use of aspirin; Z79.51 Long term (current) use of inhaled steroids; I27.21 Secondary pulmonary arterial hypertension; Z95.1 Presence of aortocoronary bypass graft; I25.10 Atherosclerotic heart disease of native coronary artery without angina pectoris
CPT/HCPCS: 92960; 93005; J7040

== ENCOUNTER → 2020-05-30 12:33 | Outpatient (CLI) | payer MEDICARE, SELFPAY ==
[2020-05-06 09:07] VITALS: BMI 32.6
== END ==
PROVIDERS: PCP Family Medicine; Referring Provider Nurse Practitioner Family; Visit Provider Nurse Practitioner Family
DX: R00.1 Bradycardia, unspecified (principal); I48.0 Paroxysmal atrial fibrillation
CPT/HCPCS: 93225; 93226

== ENCOUNTER → 2020-06-06 16:00 | Outpatient (CLI) | payer MEDICARE, SELFPAY ==
[2020-06-06 11:34] VITALS: BMI 33.1
[2020-06-06 17:32] LABS: Thyroid Stim Hormone (TSH) 3.19 uIU/mL (0.358-3.74)
== END ==
PROVIDERS: PCP Family Medicine; Visit Provider Internal Medicine Cardiovascular Disease
DX: R53.83 Other fatigue (principal)
CPT/HCPCS: 36415; 84443

== ENCOUNTER → 2020-06-20 14:42 | Outpatient (CLI) | payer MEDICARE, SELFPAY ==
[2020-06-06 11:34] VITALS: BMI 33.1
--- NOTE | 2020-06-20 14:43 | ECHOD_ITS ---
Reason For Study: DYSPNEA/SOB Procedure This was a 2D Doppler, Color Flow transthoracic echocardiogram. The study was technically difficult. Exam performed in department. Left Ventricle Normal LV size. Left ventricular systolic function is normal. The estimated ejection fraction is 55 %. Stage 2 diastolic dysfunction. No regional wall motion abnormalities noted. Right Ventricle Normal RV size. Normal systolic function. Atria The left atrium is moderately enlarged. Normal right atrium. Tricuspid Valve Normal tricuspid valve. Mild (1+) tricuspid valve insufficiency. Pulmonary artery systolic pressure is 36 mmHg. Aortic Valve Normal aortic valve. Pulmonic Valve Normal pulmonic valve. Great Vessels Normal aortic root. The pulmonary artery is normal size. Normal inferior vena cava. Pericardium/Pleural No pericardial effusion. MMode/2D Measurements & Calculations LVIDd: 4.9 cm IVSd: 1.1 cm Ao root diam: 3.7 cm LVIDs: 3.5 cm LVPWd: 1.1 cm RVDd: 3.9 cm FS: 28.9 % LAV(MOD-bp): 109.0 ml LA A4 area: 28.4 cm2 LA dimension(2D): 6.7 cm LAV(MOD-bp) Indexed: 51.4 ml/m2 LAV(MOD-sp2): 103.6 ml LAV(MOD-sp4): 103.1 ml RA A4 area: 16.6 cm2 Time Measurements MV dec time: 0.25 sec Doppler Measurements & Calculations MV E max anoop: 142.6 cm/sec Lat Peak E' Anoop: 13.8 cm/sec Med Peak E' Anoop: 8.2 cm/sec MV A max anoop: 79.2 cm/sec E/E' lat: 10.4 E/E' med: 17.4 MV E/A: 1.8 Ao V2 max: 117.7 cm/sec LV V1 max: 93.2 cm/sec PA V2 max: 138.9 cm/sec Ao max P.5 mmHg LV V1 max P.5 mmHg TR max anoop: 285.7 cm/sec TR max P.6 mmHg Interpretation Summary Normal LV size. Left ventricular systolic function is normal. The estimated ejection fraction is 55 %. Stage 2 diastolic dysfunction. Ordering Physician: Vance Russ Referring Physician: Jose C Shine Performed By: Kimberlyn Hill, SANDRACS, RVT
== END ==
PROVIDERS: PCP Family Medicine; Referring Provider Internal Medicine Cardiovascular Disease; Visit Provider Internal Medicine Cardiovascular Disease
DX: R06.02 Shortness of breath (principal); R06.09 Other forms of dyspnea
CPT/HCPCS: 93306

== ENCOUNTER 2020-08-30 10:49 | Outpatient (RCR) | payer MEDICARE, SELFPAY ==
[2020-06-06 11:34] VITALS: BMI 33.1
== END 2020-08-30 23:59 ==
LOC: IMMUN 10:49
PROVIDERS: PCP Family Medicine; Visit Provider Family Medicine
DX: Z23 Encounter for immunization (principal)
CPT/HCPCS: 0011A; 0012A; 91301

== ENCOUNTER → 2020-10-03 09:51 | Outpatient (CLI) | payer MEDICARE, SELFPAY ==
[2020-10-03 08:43] VITALS: BMI 33.4
--- NOTE | 2020-10-03 09:53 | RAD_ITS ---
STUDY: X-RAY CHEST REASON FOR EXAM: Male, 85 years old. ERWIN -- SOB x several years TECHNIQUE: PA and lateral views of the chest. COMPARISON: Comparison is made with prior examination dated 08/10/2019. FINDINGS: Stable elevation of the right hemidiaphragm. Minimal residual increased linear markings at the lung bases suggestive of mild scarring although there has been improvement as compared to prior study. There is no demonstrated pleural abnormality. Sternal cerclage wires and vascular clips are present from a prior sternotomy and coronary artery bypass graft procedure (CABG). Normal mediastinum and alaina. Normal visualized pulmonary arteries. There is atherosclerotic calcification of the aortic arch with tortuosity. There is demineralization of the osseous structures. Normal visualized ribs, clavicles, and shoulders. There is no demonstrated abnormality of the visualized soft tissue structures of the upper abdomen. RAD/Chest PA and Lateral IMPRESSION: Stable elevation of the right hemidiaphragm with mild increased markings at the lung bases suggestive of mild scarring. This has improved as compared to prior study. Electronically Signed: Domo Appiah MD at 10:34 EST , Service support ,
[2020-10-03 11:03] LABS: Absolute Neutrophil Count 4.9 X10^3/uL (2.0-7.7); Basophil# 0.02 X10^3/uL; Basophil% 0.3 % (0-1); Eosinophil# 0.07 X10^3/uL; Eosinophils% 0.9 % (0-5); Hematocrit 41.8 % (40-54); Lymphocyte % 27.7 % (19-41); Mean Corp Hgb Conc 33.5 g/dL (32-36); Mean Corpuscular Hgb 31.9 pg (27.0-32.0); Mean Corpuscular Volume 95.2 fL (80-94); Mean Platelet Vol. 9.5 fl (6.2-12.0); Monocyte# 0.41 X10^3/uL; Monocyte% 5.4 % (0-10); NRBC Flagged by Analyzer 0 % (0-5); Neutrophil # 4.93 X10^3/uL (2.7-7.7); Neutrophil % 65.2 % (47-70); Platelet Count 156 K/mm3 (150-450); RBC Distribution Width CV 14.3 % (11.6-14.6); RBC Distribution Width SD 49.5 fl (35.1-43.9); Red Blood Count 4.39 M/mm3 (4.6-6.2); White Blood Count 7.6 K/mm3 (4.4-11.0)
[2020-10-03 11:33] LABS: BNP,B-Type NATRIURETIC PEPTIDE 311.8 pg/mL (0-100)
[2020-10-03 11:44] LABS: AST(SGOT) 21 U/L (15-37); Alanine Aminotransfer ALT/SGPT 27 U/L (16-61); Albumin, Serum 3.8 g/dL (3.2-5.0); Alkaline Phosphatase 108 U/L (45-117); Anion Gap 8 (5-15); BUN 34 mg/dL (7-18); BUN/Creat Ratio 12.3 RATIO (10-20); Bilirubin, Direct 0.26 mg/dL (0.00-0.30); Calcium,Total 8.9 mg/dL (8.5-10.1); Chloride 104 mmol/L (98-107); Cholesterol 151 mg/dL (200); Creatinine, Serum 2.76 mg/dL (0.70-1.30); EST Glomerular Filtration Rate 24 mL/min (>60); Est Glom Filt Rate - Afr Amer 28 mL/min (>60); Globulin 3.3 g/dL (2.2-4.2); Glucose 110 mg/dL (74-106); High Density Lipoprotein 42 mg/dL; Potassium 3.9 mmol/L (3.5-5.1); Protein, Total 7.1 g/dL (6.4-8.2); Sodium Level 139 mmol/L (136-145); Thyroid Stim Hormone (TSH) 3.43 uIU/mL (0.358-3.74); Triglycerides 182 mg/dL; Very Low Density Lipoprotein 36 mg/dL (5-40)
== END ==
PROVIDERS: PCP Family Medicine; Referring Provider Physician Assistant Medical; Visit Provider Physician Assistant Medical
DX: I25.10 Atherosclerotic heart disease of native coronary artery without angina pectoris (principal); E78.5 Hyperlipidemia, unspecified; R00.1 Bradycardia, unspecified; R06.09 Other forms of dyspnea; I10 Essential (primary) hypertension
CPT/HCPCS: 36415; 71046; 80048; 80061; 80076; 83880; 84443; 85025

== ENCOUNTER → 2020-10-07 07:00 | Outpatient (CLI) | payer MEDICARE, SELFPAY ==
[2020-10-03 08:43] VITALS: BMI 33.4
--- NOTE | 2020-10-07 13:55 | PFTCOMP ---
COMPLETE PULMONARY FUNCTION TEST INTERPRETATION Brief HPI: Patient is an 85 year old male, currently under the care of Elena Garcia, who presents to [facility] for complete pulmonary function tests secondary to diagnosis of high risk med use. Respiratory therapist reports good effort and reproducible results. Interpretation: Forced expiration spirometry shows no large airways obstructive ventilatory defect with an FEV1 of 79% predicted. There is no significant bronchodilator response by strict ATS criteria. Spirograms are of good quality and plateau normally. The respiratory flow volume loop shows a normal pattern. Lung volumes by body plethysmography show a moderately decreased total lung capacity at 3.82 L, 65% predicted. All other lung volumes are reduced symmetrically. Diffusion capacity by carbon monoxide is at the lower limit of normal at 68% predicted. The airway resistance is normal. Compared to previous pulmonary function tests from 10/03/2019, and a significant reduction in lung volumes. Impression: Moderate restrictive ventilatory defect with a symmetric reduction diffusing capacity. Significant worsening compared to previous testing. Consider chest imaging if not completed recently.
== END ==
PROVIDERS: PCP Family Medicine; Referring Provider Physician Assistant Medical; Visit Provider Physician Assistant Medical
DX: R06.09 Other forms of dyspnea (principal); R00.1 Bradycardia, unspecified; I25.10 Atherosclerotic heart disease of native coronary artery without angina pectoris; I10 Essential (primary) hypertension; E78.5 Hyperlipidemia, unspecified
CPT/HCPCS: 94060; 94726; 94729

== ENCOUNTER → 2020-10-22 07:32 | Outpatient (CLI) | payer OTHER, SELFPAY ==
[2020-10-10 09:36] VITALS: BMI 33.4
--- NOTE | 2020-10-22 07:33 | CT_ITS ---
STUDY: CT CHEST WITHOUT CONTRAST REASON FOR EXAM: Male, 85 years old. Restrictive lung disease on PFT''s with Dyspnea -- Eval for ILD- high resolution scan RADIATION DOSAGE (If Supplied By Facility): CTDIvol = ( 14.80 ) mGy, DLP = ( 539.75 ) mGycm TECHNIQUE: Transaxial imaging was performed without the administration of intravenous contrast material. Multiplanar coronal and sagittal images were reformatted. Individualized dose optimization techniques were used for this CT. COMPARISON: None. FINDINGS: Elevation of the anterior aspect of the right hemidiaphragm. Increased interstitial markings in the upper lobes more prominent on the right side suggestive of scarring. Increased linear markings at the lung bases suggestive of interstitial scarring. There is no demonstrated pleural abnormality. Sternal cerclage wires and vascular clips are present from a prior sternotomy and coronary artery bypass graft procedure (CABG). There are calcifications of the coronary arteries. Normal mediastinum. Normal hilar regions. Normal unenhanced pulmonary arteries. There is atherosclerotic calcification of the aortic arch with tortuosity and elongation of the aortic arch and descending thoracic aorta. There are degenerative changes of the thoracic spine. There is no demonstrated abnormality of the visualized upper abdomen. CT/Chest without Contrast IMPRESSION: Elevation of the anterior aspect of the right hemidiaphragm with increased linear markings at the lung bases as well as the upper lobes more prominent on the right side with scarring. Electronically Signed: Domo Appiah MD at 15:09 EDT , Service support ,
== END ==
PROVIDERS: PCP Family Medicine; Referring Provider Internal Medicine Critical Care Medicine; Visit Provider Internal Medicine Critical Care Medicine
DX: J98.4 Other disorders of lung (principal)
CPT/HCPCS: 71250

== ENCOUNTER → 2020-12-10 10:55 | Outpatient (CLI) | payer OTHER, SELFPAY ==
[2020-12-10 10:01] VITALS: BMI 33.3
[2020-12-10 12:46] LABS: Anion Gap 7 (5-15); BUN 32 mg/dL (7-18); BUN/Creat Ratio 12.1 RATIO (10-20); Calcium,Total 9.1 mg/dL (8.5-10.1); Chloride 103 mmol/L (98-107); Creatinine, Serum 2.65 mg/dL (0.70-1.30); EST Glomerular Filtration Rate 25 mL/min (>60); Est Glom Filt Rate - Afr Amer 30 mL/min (>60); Glucose 98 mg/dL (74-106); Potassium 3.9 mmol/L (3.5-5.1); Sodium Level 141 mmol/L (136-145)
[2020-12-10 12:56] LABS: AST(SGOT) 19 U/L (15-37); Alanine Aminotransfer ALT/SGPT 23 U/L (16-61); Albumin, Serum 3.8 g/dL (3.2-5.0); Alkaline Phosphatase 106 U/L (45-117); Bilirubin, Direct 0.26 mg/dL (0.00-0.30); Cholesterol 140 mg/dL (200); Globulin 3.3 g/dL (2.2-4.2); High Density Lipoprotein 43 mg/dL; Protein, Total 7.1 g/dL (6.4-8.2); Triglycerides 147 mg/dL; Very Low Density Lipoprotein 29 mg/dL (5-40)
== END ==
PROVIDERS: Internal Medicine Cardiovascular Disease; PCP Family Medicine; Referring Provider Physician Assistant Medical; Visit Provider Physician Assistant Medical
DX: E78.00 Pure hypercholesterolemia, unspecified (principal); E78.5 Hyperlipidemia, unspecified; N28.9 Disorder of kidney and ureter, unspecified
CPT/HCPCS: 36415; 80048; 80061; 80076

== ENCOUNTER 2021-03-23 18:13 | Emergency (ER) | payer OTHER, SELFPAY ==
[2021-02-25 06:06] VITALS: BMI 32.5
[2021-03-23] VITALS (7 sets, daily range): BP systolic 95–194; BP diastolic 51–93; PULSE 67–84; RESP 12–39; TEMP 36.6–37.9; O2SAT 92–96; BMI 36.4
--- NOTE | 2021-03-23 18:44 | EKG12_ITS ---
Test Reason : HOEHNE/ANDES Blood Pressure : / mmHG Vent. Rate : 086 BPM Atrial Rate : 084 BPM P-R Int : 000 ms QRS Dur : 110 ms QT Int : 382 ms P-R-T Axes : 000 054 033 degrees QTc Int : 457 ms Accelerated Junctional rhythm Abnormal ECG Confirmed by JOHN BRENNAN, VIGNESH ([id number]), video tape editor MAGY JAMES ([id number]) on 03/25/2021 9:25:48 AM Referred By: LAUREN/SOB Confirmed By:VIGNESH LOPEZ MD
--- NOTE | 2021-03-23 18:45 | EDS_ITS ---
HPI History of Present Illness Chief Complaint: Shortness of Breath Informant: patient, spouse/S.O. and family Narrative Narrative: 85-year-old male presented to the emergency department stating he does not feel well. The patient states that this morning his blood pressure machines that he had an irregular heartbeat. By noon he began to feel chilled he noted that his cough which is chronic was more frequent today. Patient notes a headache. No diarrhea or sore throat. He does note some rhinorrhea. He got his influenza and his Covid vaccine this winter. He has a history of atrial fibrillation and status post CABG. He is on Xarelto and amiodarone. [facility] Medical History (Updated 03/23/21 @ 23:[address] Hector Beebe, ) Atherosclerosis of coronary artery of [place] heart without angina pectoris Body mass index (bmi) 32.0-32.9, adult Carotid bruit Chronic diastolic heart failure Constipation Hyperlipidemia Hypotension Palpitations Paroxysmal atrial fibrillation Secondary pulmonary arterial hypertension Shortness of breath Home Medications mroeondl-azu-LO-lycopen-lutein 1 tab PO DAILY 05/24/13 [History Last Taken Unknown] handicap placard See Rx Instructions .ROUTE .COMPLEX #1 ea 05/03/20 [Rx Last Taken Unknown] aspirin 81 mg tablet,delayed release 81 mg PO QDAY #90 tab 08/12/20 [Rx Last Taken Unknown] lovastatin 40 mg tablet 40 mg PO QHS #90 tab 08/21/20 [Rx Last Taken Unknown] furosemide 80 mg tablet 40 mg PO DAILY #90 tab 10/08/20 [Rx Last Taken Unknown] amiodarone 200 mg tablet 100 mg PO QDAY #90 tab 12/10/20 [Rx Last Taken Unknown] lactobacillus combination no.9 4 billion cell capsule 4,000 mmu cells PO DAILY 12/10/20 [History Last Taken Unknown] metolazone 2.5 mg tablet 2.5 mg PO .prn #30 tab 12/10/20 [Rx Last Taken Unknown] potassium chloride 10 mEq tablet,extended release 10 meq PO .prn #30 tab 12/10/20 [Rx Last Taken Unknown] rivaroxaban 15 mg tablet 15 mg PO DAILY #90 tab 12/10/20 [Rx Last Taken Unknown] amoxicillin-pot clavulanate 875 mg PO Q12H #14 tablet 03/23/21 [Rx Last Taken Unknown] Allergy/AdvReac Type Severity Reaction Status Date / Time spironolactone AdvReac Elevated Verified 03/23/21 18:14 Potassium Family History Mother CAD (coronary artery disease) Brother CAD (coronary artery disease) Surgical History H/O coronary artery bypass surgery (09/20/97) History of appendectomy History of cardioversion (05/07/20) History of left heart catheterization (12/12/14) History of thymectomy Hx of cholecystectomy Social History Smoking Status: Never smoker alcohol intake: never substance use type: does not use caffeine: Yes Type: coffee Number of servings: 1 what type of physical activity do you participate in: none seatbelt use: always do you feel safe at home: Yes ROS ROS ED Constitutional Constitutional ED: Reports chills; Denies fever(s) or weight loss Eyes Eyes: Denies change in vision or diplopia ENT ENT ED: Reports rhinorrhea; Denies ear pain or sore throat Cardiovascular Cardiovascular: Denies chest pain, orthopnea, palpitations or racing heartbeat Respiratory/Chest Respiratory/Chest: Reports cough; Denies dyspnea or orthopnea Gastrointestinal Gastrointestinal: Denies abdominal pain, diarrhea, nausea or vomiting Genitourinary Genitourinary ED: Denies dysuria, hematuria or urinary frequency Musculoskeletal Musculoskeletal: Reports myalgias; Denies arthralgias Integumentary Denies abscess or rash Neurologic Neurologic: Reports headache(s); Denies weakness Psychiatric Psychiatric: Denies anxiety, depression, suicidal ideation or suicidal thoughts Endocrine Endocrinology: Denies polydipsia, polyphagia or polyuria Allergic/Immunologic Allergic/Immunologic ED: Denies mouth swelling, tongue swelling or urticaria EXAM Physical Exam Narrative Exam Narrative: Patient is shivering Const Vital Signs: 03/23/21 18:15 03/23/21 18:20 03/23/21 18:46 Temperature 100.2 F H 100.2 F H 100.2 F H Temperature Source Oral Oral Oral Pulse Rate 84 84 82 Respiratory Rate 23 H 22 H 39 H Respiratory Effort Short of Breath Labored Respiratory Depth Normal Respiratory Pattern Normal Blood Pressure 194/86 H 194/86 H 194/86 H Blood Pressure Mean 122 122 122 Pulse Ox 94 94 95 Oxygen Delivery Method Room Air Room Air Room Air 03/23/21 20:17 03/23/21 21:41 03/23/21 23:07 Temperature 99.1 F 99.7 F H 98 F Temperature Source Oral Oral Oral Pulse Rate 74 73 68 Respiratory Rate 12 17 29 H Respiratory Effort Respiratory Depth Respiratory Pattern Blood Pressure 113/93 H 114/52 L 95/51 L Blood Pressure Mean 99 72 65 Pulse Ox 93 92 96 Oxygen Delivery Method Room Air Room Air Room Air Positive well nourished and well developed General Appearance ED: well developed HEENT Reports normocephalic, head/scalp atraumatic and moist mucous membranes Eyes PERRL and EOMs intact bilaterally Neck no lymphadenopathy, supple and no JVD Resp normal respiratory effort and clear to auscultation bilaterally Cardio regular rate, regular rhythm and no murmurs GI normal to inspection, nondistended, normoactive bowel sounds and non-tender Palpation: soft Back/Spine no CVA tenderness and normal ROM Extremity normal to inspection General Extremety ED: Negative for edema General Extremity: Negative for edema Neuro oriented x3 and CN's II-XII intact bilaterally Sensorium / Orientation: alert Motor Exam: strength 5/5 throughout Psych mental status grossly normal Mood & Affect: Negative for depressed or tearful Skin no rashes or lesions noted and no wounds MDM MDM MDM Narrative Medical decision making narrative: White count elevated 17.6. Lactic acid 2.1 which is I believe is most likely due to his shivering/rigors. Creatinine 2.0 which is baseline for him. Urinalysis is normal. My interpretation of the chest x-ray is no acute process. Patient received Tylenol as well as some fluids. His temperature is down. He has not had any hypotension. He feels well. CT of the chest does not show any inflammatory areas in the retrocardiac region as well. Covid and influenza test were negative. The patient feels well and would like to go home. At this point I think it is reasonable we did talk about admission but he would like to defer this. Blood cultures will be pending. He did receive Rocephin and azithromycin. We will send him home on Augmentin return if worsening or concerns Lab Data Attestation: I reviewed the patient's lab results. Labs: Laboratory Results - last 24 hr 03/23/21 03/23/21 03/23/21 18:20 18:20 18:20 WBC 17.6 H RBC 4.60 Hgb 14.4 Hct 43.9 MCV 95.4 H MCH 31.3 MCHC 32.8 RDW Std Deviation 49.2 H RDW Coeff of Radha 14.0 Plt Count 157 MPV 9.3 Immature Gran % (Auto) 0.600 Neut % (Auto) 87.9 H Lymph % (Auto) 6.4 L [place] % (Auto) 4.9 Eos % (Auto) 0.1 Baso % (Auto) 0.1 Absolute Neuts (auto) 15.5 H Absolute Lymphs (auto) 1.13 Nucleated RBC % 0 PT INR APTT Sodium 138 Potassium 3.8 Chloride 100 Carbon Dioxide 30.0 Anion Gap 8 BUN 32 H Creatinine 2.01 H Estim Creat Clear Calc 26.94 Est GFR (MDRD) Af Amer 41 L Est GFR (MDRD) Non-Af 34 L BUN/Creatinine Ratio 15.9 Glucose 134 H Lactic Acid 2.1 H* Calcium 8.6 Total Bilirubin 1.10 H AST 47 H ALT 41 Alkaline Phosphatase 116 Troponin I High Sens 11.4 Total Protein 7.2 Albumin 4.0 Globulin 3.2 Albumin/Globulin Ratio 1.2 Urine Color Urine Clarity Urine pH Ur Specific [place] Urine Protein Urine Glucose (UA) Urine Ketones Urine Occult Blood Urine Nitrite Urine Bilirubin Urine Urobilinogen Ur Leukocyte Esterase Urine RBC Urine WBC Ur Squamous Epith Cells Urine Bacteria Urine Mucus 03/23/21 03/23/21 18:20 19:10 WBC RBC Hgb Hct MCV MCH MCHC RDW Std Deviation RDW Coeff of Radha Plt Count MPV Immature Gran % (Auto) Neut % (Auto) Lymph % (Auto) [place] % (Auto) Eos % (Auto) Baso % (Auto) Absolute Neuts (auto) Absolute Lymphs (auto) Nucleated RBC % PT 19.1 H INR 1.7 APTT 37.7 H Sodium Potassium Chloride Carbon Dioxide Anion Gap BUN Creatinine Estim Creat Clear Calc Est GFR (MDRD) Af Amer Est GFR (MDRD) Non-Af BUN/Creatinine Ratio Glucose Lactic Acid Calcium Total Bilirubin AST ALT Alkaline Phosphatase Troponin I High Sens Total Protein Albumin Globulin Albumin/Globulin Ratio Urine Color Yellow Urine Clarity Clear Urine pH 7.0 Ur Specific [place] 1.010 Urine Protein Negative Urine Glucose (UA) Normal Urine Ketones Negative Urine Occult Blood Negative Urine Nitrite Negative Urine Bilirubin Negative Urine Urobilinogen 1 H Ur Leukocyte Esterase Negative Urine RBC 0 SEEN Urine WBC 0 SEEN Ur Squamous Epith Cells 0 SEEN Urine Bacteria 0 SEEN Urine Mucus 0 SEEN Radiography Diagnostic Testing: Radiology Impression Chest X-Ray 03/23/21 19:20 IMPRESSION: No acute findings. Electronically Signed: Nereyda Shabazz MD at 20:36 EDT Tel , Service support , Chest CT 03/23/21 21:24 IMPRESSION: 1. No acute findings. 2. Mild fibrotic changes in the lungs. Electronically Signed: Nereyda Shabazz MD at 22:47 EDT Tel , Service support , EKG Initial EKG: Attestation: I personally reviewed and interpreted this EKG as follows: Comments: EKG shows probable sinus rhythm ventricular rate of 86 bpm Discharge Plan Triage Chief Complaint: Shortness of Breath ED Provider: Hector Beebe Dx/Rx/DC Orders Clinical Impression: Fever, unknown origin Instructions: ED FUO Adult Prescriptions: New amoxicillin-pot clavulanate [amoxicillin-pot clavulanate] 875 MG tablet 875 mg PO Q12H Qty: 14 RF: 0 No Action handicap placard See Rx Instructions .ROUTE .COMPLEX Qty: 1 RF: 0 Adult 50 Plus Probiotic 4 billion cell capsule 4,000 mmu cells PO DAILY RF: 0 potassium chloride 10 mEq tablet extended release 10 meq PO .prn Qty: 30 RF: 6 metolazone 2.5 mg tablet 2.5 mg PO .prn Qty: 30 RF: 6 amiodarone 200 mg tablet 100 mg PO QDAY Qty: 90 RF: 3 rivaroxaban 15 mg tablet 15 mg PO DAILY Qty: 90 RF: 3 vlpqtioi-vig-KJ-lycopen-lutein 1 EACH tablet 1 tab PO DAILY RF: 0 furosemide [Lasix] 80 mg tablet 40 mg PO DAILY Qty: 90 RF: 3 aspirin [Adult Aspirin Regimen] 81 mg tablet,delayed release (DR/EC) 81 mg PO QDAY Qty: 90 RF: 3 lovastatin 40 mg tablet 40 mg PO QHS Qty: 90 RF: 3 Primary Care Provider: Jose C Shine III Referrals: Jose C Shine III, MD [Primary Care Provider] - Disposition Disposition: Home, Self Care
[2021-03-23 18:51] LABS: Bacteria 0 SEEN /hpf (None Seen); Mucous, Urine 0 SEEN /hpf (<or=2+); Red Blood Cells-Urine 0 SEEN /hpf (0-5); Squamous Epithelial Cells - UA 0 SEEN /hpf (0-5); White Blood Cells 0 SEEN /hpf (0-5)
[2021-03-23 18:52] LABS: Absolute Lymphocyte Count 1.13 X10^3/uL (0.83-4.51); Absolute Neutrophil Count 15.5 X10^3/uL (2.0-7.7); Basophil# 0.02 X10^3/uL; Basophil% 0.1 % (0-1); Eosinophil# 0.01 X10^3/uL; Eosinophils% 0.1 % (0-5); Hematocrit 43.9 % (40-54); Hemoglobin 14.4 g/dL (13.0-16.5); Lymphocyte # 1.13 X10^3/ul (0.83-4.51); Lymphocyte % 6.4 % (19-41); Mean Corp Hgb Conc 32.8 g/dL (32-36); Mean Corpuscular Hgb 31.3 pg (27.0-32.0); Mean Corpuscular Volume 95.4 fL (80-94); Mean Platelet Vol. 9.3 fl (6.2-12.0); Monocyte# 0.86 X10^3/uL; Monocyte% 4.9 % (0-10); NRBC Flagged by Analyzer 0 % (0-5); Neutrophil # 15.47 X10^3/uL (2.7-7.7); Neutrophil % 87.9 % (47-70); Platelet Count 157 K/mm3 (150-450); RBC Distribution Width SD 49.2 fl (35.1-43.9); White Blood Count 17.6 K/mm3 (4.4-11.0)
[2021-03-23 18:54] LABS: Color, Urine Yellow (Yellow); Glucose, Dipstick Normal (Normal); Ketone-Dipstick Negative (Negative); Leukocyte Esterase-Dipstick Negative /ul (Negative); Nitrite-Dipstick Negative (Negative); Occult Blood-Urine Negative /ul (Negative); Protein-Dipstick Negative (Negative); Urine Bilirubin Dipstick Negative (Negative); Urine Clarity Clear (Clear); Urine Urobilinogen 1 mg/dl (Normal)
[2021-03-23] MEDS: Acetaminophen 500 MG Tablet 1000 MG PO (19:01)
[2021-03-23 19:09] LABS: ALB/GLOB Ratio 1.2 RATIO (0.9-2.4); AST(SGOT) 47 U/L (15-37); Alanine Aminotransfer ALT/SGPT 41 U/L (16-61); Alkaline Phosphatase 116 U/L (45-117); Anion Gap 8 (5-15); BUN 32 mg/dL (7-18); BUN/Creat Ratio 15.9 RATIO (10-20); Calcium,Total 8.6 mg/dL (8.5-10.1); Chloride 100 mmol/L (98-107); Creatinine, Serum 2.01 mg/dL (0.70-1.30); EST Glomerular Filtration Rate 34 mL/min (>60); Est Glom Filt Rate - Afr Amer 41 mL/min (>60); Estimated Creatinine Clearance 26.94 ml/min; Globulin 3.2 g/dL (2.2-4.2); Glucose 134 mg/dL (74-106); Potassium 3.8 mmol/L (3.5-5.1); Protein, Total 7.2 g/dL (6.4-8.2); Sodium Level 138 mmol/L (136-145); Troponin-I HS 11.4 pg/mL (3.0-78.5)
[2021-03-23 19:12] LABS: Lactic Acid 2.1 mmol/L (0.4-1.9)
[2021-03-23] MEDS: 0.9% Normal Saline 1,000 ML 150 ML IV (19:13)
--- NOTE | 2021-03-23 19:20 | RAD_ITS ---
STUDY: X-RAY CHEST REASON FOR EXAM: Male, 85 years old. fever and cough TECHNIQUE: Single AP portable view of the chest. COMPARISON: 10/03/2020. FINDINGS: The lungs are clear and expanded. There is no demonstrated pleural abnormality. Normal size heart. Prior CABG. Normal mediastinum and alaina. Normal visualized pulmonary arteries. Normal visualized aortic arch and descending thoracic aorta. Old healed right clavicle fracture. Soft tissues and bony structures are otherwise unremarkable. RAD/Chest 1 View (Portable) IMPRESSION: No acute findings. Electronically Signed: Nereyda Shabazz MD at 20:36 EDT Tel , Service support ,
[2021-03-23 19:31] LABS: International Normalized Ratio 1.7; Prothrombin Time (Protime)PT. 19.1 SECONDS (11.7-14.9)
[2021-03-23 19:32] LABS: Partial Thromboplast Time 37.7 Seconds (24.1-36.2)
--- NOTE | 2021-03-23 21:24 | CT_ITS ---
STUDY: CT CHEST WITHOUT CONTRAST REASON FOR EXAM: Male, 85 years old. fever and cough RADIATION DOSAGE (If Supplied By Facility): CTDIvol = ( 19.53 ) mGy, DLP = ( 771.02 ) mGycm TECHNIQUE: Transaxial imaging was performed without the administration of intravenous contrast material. Individualized dose optimization techniques were used for this CT. COMPARISON: 10/22/2020. FINDINGS: Heart size and pericardium are unremarkable. The aorta is normal in caliber. There is no mediastinal mass or adenopathy. There is no hilar or axillary adenopathy. There is no pleural effusion. There is no pulmonary consolidation. Mild fibrotic changes in the lung periphery. Visualized abdomen is unremarkable. There is no acute osseous abnormality. CT/Chest without Contrast IMPRESSION: 1. No acute findings. 2. Mild fibrotic changes in the lungs. Electronically Signed: Nereyda Shabazz MD at 22:47 EDT Tel , Service support ,
[2021-03-23] MEDS: Ceftriaxone 1 GM/50 ML BAG IV (21:40)
[2021-03-23 22:48] LABS: Reflex Lactate? Y
[2021-03-23 23:21] LABS: Probe Check PASS; Specimen Processing Control PASS
--- NOTE | 2021-03-24 06:23 | ED.RN ---
CALLED PT TO COME BACK TO ER FOR POSITIVE BLOOD CULTURES, SPOKE TO MIKEY, SHE REPORTS THEY WILL BE IN AT SOME POINT TODAY.
== END 2021-03-23 23:39 | disposition home or self-care (01) ==
PROVIDERS: Emergency Provider Emergency Medicine; PCP Family Medicine
DX: R50.9 Fever, unspecified (principal); R06.02 Shortness of breath; I25.10 Atherosclerotic heart disease of native coronary artery without angina pectoris; E78.5 Hyperlipidemia, unspecified; I27.21 Secondary pulmonary arterial hypertension; I48.0 Paroxysmal atrial fibrillation; I50.32 Chronic diastolic (congestive) heart failure; K59.00 Constipation, unspecified; Z79.01 Long term (current) use of anticoagulants; Z79.82 Long term (current) use of aspirin; Z79.899 Other long term (current) drug therapy; Z95.1 Presence of aortocoronary bypass graft; Z90.49 Acquired absence of other specified parts of digestive tract
CPT/HCPCS: 36415; 71045; 71250; 80053; 81001; 83605; 84484; 85025; 85610; 85730; 87040; 87077; 87086; 87088; 87149; 87186; 87426; 87635; 87804; 93005; 96361; 96365; 96367; 99285; J7030; J7050; U0005; A4216; U0003

== ENCOUNTER 2021-03-24 07:26 | Inpatient (IN) | payer MEDICARE, SELFPAY ==
[2021-03-23 18:15] VITALS: BMI 36.4
[2021-03-24] VITALS (9 sets, daily range): BP systolic 127–147; BP diastolic 58–67; PULSE 62–73; RESP 14–20; TEMP 35.6–37.2; O2SAT 93–98; BMI 31.3; BMI 33.9
--- NOTE | 2021-03-24 07:51 | EKG12_ITS ---
Test Reason : GENERAL ILLNESS Blood Pressure : / mmHG Vent. Rate : 067 BPM Atrial Rate : 063 BPM P-R Int : 000 ms QRS Dur : 102 ms QT Int : 440 ms P-R-T Axes : 000 049 046 degrees QTc Int : 464 ms Ectopic atrial rhythm Poor R wave progression Abnormal ECG Confirmed by TIMMY BRENNAN, CHILO ([id number]), web editor MAGY JAMES ([id number]) on 03/26/2021 9:59:03 AM Referred By: Confirmed By:CHILO WARNER MD
--- NOTE | 2021-03-24 07:51 | RAD_ITS ---
STUDY: X-RAY CHEST REASON FOR EXAM: Male, 85 years old. Shortness of breath TECHNIQUE: Single AP portable view of the chest. COMPARISON: 03/23/2021 FINDINGS: There has been median sternotomy/CABG. There is stable elevation of the right hemidiaphragm. There is marked diffuse pulmonary interstitial thickening, similar to prior exam. Low lung volume. There is no demonstrated pleural abnormality. Stable cardiac silhouette. There is atherosclerotic calcification of the aortic arch with tortuosity. Normal visualized thoracic spine. Normal visualized ribs, clavicles, and shoulders. There is no demonstrated abnormality of the visualized soft tissue structures of the upper abdomen. RAD/Chest 1 View (Portable) IMPRESSION: There is marked diffuse pulmonary interstitial thickening, similar to prior exam, in keeping with pulmonary edema and/or viral pneumonia. Low lung volume. Electronically Signed: Reena Workman MD at 9:58 EDT Tel , Service support ,
--- NOTE | 2021-03-24 07:58 | EX.ED.DYSGE1 ---
HPI History of Present Illness Chief Complaint: General Illness Narrative Narrative: 85-year-old male presenting with generalized weakness and fatigue. He complains of exertional shortness of breath. He was seen in the ED last night and had fever of unknown origin. He was sent home with Augmentin. He states he was unable to sleep last night secondary to his shortness of breath and fatigue. He complains of mild chest discomfort. He complains of chills with no fever. He was called this morning advised to come to the emergency department due to positive blood cultures. Prior similar symptoms: Yes Recent Illness/Hospitalization: Yes [facility] Medical History (Updated 03/24/21 @ 10:[address] Sarah Flowers MD) Atherosclerosis of coronary artery of [place] heart without angina pectoris Body mass index (bmi) 32.0-32.9, adult Carotid bruit Chronic diastolic heart failure Constipation Hyperlipidemia Hypotension Palpitations Paroxysmal atrial fibrillation Secondary pulmonary arterial hypertension Shortness of breath Home Medications nroogahd-shl-SL-lycopen-lutein 1 tab PO DAILY 05/24/13 [History Last Taken Unknown] handicap placard See Rx Instructions .ROUTE .COMPLEX #1 ea 05/03/20 [Rx Last Taken Unknown] aspirin 81 mg tablet,delayed release 81 mg PO QDAY #90 tab 08/12/20 [Rx Last Taken Unknown] lovastatin 40 mg tablet 40 mg PO QHS #90 tab 08/21/20 [Rx Last Taken Unknown] furosemide 80 mg tablet 40 mg PO DAILY #90 tab 10/08/20 [Rx Last Taken Unknown] amiodarone 200 mg tablet 100 mg PO QDAY #90 tab 12/10/20 [Rx Last Taken Unknown] lactobacillus combination no.9 4 billion cell capsule 4,000 mmu cells PO DAILY 12/10/20 [History Last Taken Unknown] metolazone 2.5 mg tablet 2.5 mg PO .prn #30 tab 12/10/20 [Rx Last Taken Unknown] potassium chloride 10 mEq tablet,extended release 10 meq PO .prn #30 tab 12/10/20 [Rx Last Taken Unknown] rivaroxaban 15 mg tablet 15 mg PO DAILY #90 tab 12/10/20 [Rx Last Taken Unknown] amoxicillin-pot clavulanate 875 mg PO Q12H #14 tablet 03/23/21 [Rx Last Taken Unknown] Allergy/AdvReac Type Severity Reaction Status Date / Time spironolactone AdvReac Elevated Verified 03/24/21 07:28 Potassium Family History Mother CAD (coronary artery disease) Brother CAD (coronary artery disease) Surgical History H/O coronary artery bypass surgery (09/20/97) History of appendectomy History of cardioversion (05/07/20) History of left heart catheterization (12/12/14) History of thymectomy Hx of cholecystectomy Social History Smoking Status: Never smoker alcohol intake: never substance use type: does not use caffeine: Yes Type: coffee Number of servings: 1 what type of physical activity do you participate in: none seatbelt use: always do you feel safe at home: Yes ROS ROS ED Constitutional Constitutional ED: Reports chills and fever(s) Eyes Eyes: Denies change in vision ENT ENT ED: Denies rhinorrhea or sore throat Cardiovascular Cardiovascular: Reports chest pain; Denies palpitations Respiratory/Chest Respiratory/Chest: Reports cough, dyspnea and dyspnea on exertion; Denies sputum Gastrointestinal Gastrointestinal: Denies abdominal pain, diarrhea, nausea or vomiting Genitourinary Genitourinary ED: Denies dysuria Musculoskeletal Musculoskeletal: Denies myalgias Integumentary Denies rash Neurologic Neurologic: Denies headache(s) Psychiatric Psychiatric: Denies suicidal thoughts EXAM Physical Exam Const Vital Signs: 03/24/21 07:28 03/24/21 08:13 Temperature 96.1 F L Temperature Source Temporal Pulse Rate 68 Respiratory Rate 14 Respiratory Effort Short of Breath Blood Pressure 133/58 H Blood Pressure Mean 83 Pulse Ox 96 Oxygen Delivery Method Room Air Room Air Positive well nourished and well developed General Appearance ED: well developed HEENT Reports normocephalic and head/scalp atraumatic Eyes PERRL and EOMs intact bilaterally Neck supple Neck Narrative: No meningismus General: Negative for tenderness Chest Wall inspection of chest normal Resp normal respiratory effort and clear to auscultation bilaterally Cardio regular rate and regular rhythm GI non-tender and non-distended Palpation: soft; Negative for guarding or rebound tenderness present no CVA tenderness Extremity normal to inspection Neuro oriented x3 Sensorium / Orientation: alert Psych mental status grossly normal Skin no rashes or lesions noted MDM MDM MDM Narrative Medical decision making narrative: EKG is sinus rhythm rate 67, similar to previous. CBC shows white count 19.7, platelet 115. Chemistries show BUN 35, creatinine 2.11. Total bili 1.8, AST 65, ALT is 82. History of previous cholecystectomy. He denies abdominal pain. Lactic acid 2.3. Urinalysis unremarkable. Patient was given IV fluids. He was given vancomycin and Zosyn IV. Discussed with the hospitalist for admission. Lab Data Attestation: I reviewed the patient's lab results. Labs: Laboratory Results - last 24 hr 03/24/21 03/24/21 03/24/21 08:05 08:05 08:05 WBC 19.7 H RBC 4.10 L Hgb 12.9 L Hct 38.0 L MCV 92.7 MCH 31.5 MCHC 33.9 RDW Std Deviation 48.3 H RDW Coeff of Radha 14.2 Plt Count 115 L MPV 9.6 Immature Gran % (Auto) 0.500 Neut % (Auto) 92.5 H Lymph % (Auto) 3.3 L [place] % (Auto) 3.5 Eos % (Auto) 0.0 Baso % (Auto) 0.2 Absolute Neuts (auto) 18.2 H Absolute Lymphs (auto) 0.65 L Nucleated RBC % 0 Sodium 136 Potassium 3.9 Chloride 102 Carbon Dioxide 26.0 Anion Gap 8 BUN 35 H Creatinine 2.11 H Estim Creat Clear Calc 25.66 Est GFR (MDRD) Af Amer 39 L Est GFR (MDRD) Non-Af 32 L BUN/Creatinine Ratio 16.6 Glucose 143 H Lactic Acid 2.3 H* Calcium 8.2 L Total Bilirubin 1.80 H AST 65 H ALT 82 H Alkaline Phosphatase 96 Troponin I High Sens 21.5 Total Protein 6.4 Albumin 3.2 Globulin 3.2 Albumin/Globulin Ratio 1.0 Urine Color Urine Clarity Urine pH Ur Specific [place] Urine Protein Urine Glucose (UA) Urine Ketones Urine Occult Blood Urine Nitrite Urine Bilirubin Urine Urobilinogen Ur Leukocyte Esterase Urine RBC Urine WBC Ur Squamous Epith Cells Urine Bacteria Urine Mucus 03/24/21 08:39 WBC RBC Hgb Hct MCV MCH MCHC RDW Std Deviation RDW Coeff of Radha Plt Count MPV Immature Gran % (Auto) Neut % (Auto) Lymph % (Auto) [place] % (Auto) Eos % (Auto) Baso % (Auto) Absolute Neuts (auto) Absolute Lymphs (auto) Nucleated RBC % Sodium Potassium Chloride Carbon Dioxide Anion Gap BUN Creatinine Estim Creat Clear Calc Est GFR (MDRD) Af Amer Est GFR (MDRD) Non-Af BUN/Creatinine Ratio Glucose Lactic Acid Calcium Total Bilirubin AST ALT Alkaline Phosphatase Troponin I High Sens Total Protein Albumin Globulin Albumin/Globulin Ratio Urine Color Yellow Urine Clarity Sl. Cloudy Urine pH 7.0 Ur Specific [place] 1.010 Urine Protein Negative Urine Glucose (UA) Normal Urine Ketones Negative Urine Occult Blood Negative Urine Nitrite Negative Urine Bilirubin Negative Urine Urobilinogen 4 H Ur Leukocyte Esterase Negative Urine RBC 0 SEEN Urine WBC 0 SEEN Ur Squamous Epith Cells 0 SEEN Urine Bacteria 0 SEEN Urine Mucus 0 SEEN Radiography Diagnostic Testing: Radiology Impression Chest X-Ray 03/24/21 07:51 IMPRESSION: There is marked diffuse pulmonary interstitial thickening, similar to prior exam, in keeping with pulmonary edema and/or viral pneumonia. Low lung volume. Electronically Signed: Reena Workman MD at 9:58 EDT Tel , Service support , EKG Initial EKG: Attestation: I personally reviewed and interpreted this EKG as follows: Interpretation: Sinus Rhythm and No Acute Injury Pattern Discharge Plan Triage Chief Complaint: General Illness ED Provider: Sarah Flowers Dx/Rx/DC Orders Clinical Impression: Bacteremia Prescriptions: No Action handicap placard See Rx Instructions .ROUTE .COMPLEX Qty: 1 RF: 0 Adult 50 Plus Probiotic 4 billion cell capsule 4,000 mmu cells PO DAILY RF: 0 potassium chloride 10 mEq tablet extended release 10 meq PO .prn Qty: 30 RF: 6 metolazone 2.5 mg tablet 2.5 mg PO .prn Qty: 30 RF: 6 amiodarone 200 mg tablet 100 mg PO QDAY Qty: 90 RF: 3 rivaroxaban 15 mg tablet 15 mg PO DAILY Qty: 90 RF: 3 ninecwlx-ida-YY-lycopen-lutein 1 EACH tablet 1 tab PO DAILY RF: 0 furosemide [Lasix] 80 mg tablet 40 mg PO DAILY Qty: 90 RF: 3 amoxicillin-pot clavulanate [amoxicillin-pot clavulanate] 875 MG tablet 875 mg PO Q12H Qty: 14 RF: 0 aspirin [Adult Aspirin Regimen] 81 mg tablet,delayed release (DR/EC) 81 mg PO QDAY Qty: 90 RF: 3 lovastatin 40 mg tablet 40 mg PO QHS Qty: 90 RF: 3 Primary Care Provider: Care Physician,No Primary Referrals: Care Physician,No Primary [Primary Care Provider] - Disposition Disposition: Acute Care Hospital [facility]
[2021-03-24 08:22] LABS: Absolute Lymphocyte Count 0.65 X10^3/uL (0.83-4.51); Absolute Neutrophil Count 18.2 X10^3/uL (2.0-7.7); Basophil# 0.03 X10^3/uL; Basophil% 0.2 % (0-1); Hemoglobin 12.9 g/dL (13.0-16.5); Lymphocyte # 0.65 X10^3/ul (0.83-4.51); Lymphocyte % 3.3 % (19-41); Mean Corp Hgb Conc 33.9 g/dL (32-36); Mean Corpuscular Hgb 31.5 pg (27.0-32.0); Mean Corpuscular Volume 92.7 fL (80-94); Mean Platelet Vol. 9.6 fl (6.2-12.0); Monocyte# 0.68 X10^3/uL; Monocyte% 3.5 % (0-10); NRBC Flagged by Analyzer 0 % (0-5); Neutrophil # 18.24 X10^3/uL (2.7-7.7); Neutrophil % 92.5 % (47-70); Platelet Count 115 K/mm3 (150-450); RBC Distribution Width CV 14.2 % (11.6-14.6); RBC Distribution Width SD 48.3 fl (35.1-43.9); White Blood Count 19.7 K/mm3 (4.4-11.0)
[2021-03-24 08:36] LABS: AST(SGOT) 65 U/L (15-37); Alanine Aminotransfer ALT/SGPT 82 U/L (16-61); Albumin, Serum 3.2 g/dL (3.2-5.0); Alkaline Phosphatase 96 U/L (45-117); Anion Gap 8 (5-15); BUN 35 mg/dL (7-18); BUN/Creat Ratio 16.6 RATIO (10-20); Calcium,Total 8.2 mg/dL (8.5-10.1); Chloride 102 mmol/L (98-107); Creatinine, Serum 2.11 mg/dL (0.70-1.30); EST Glomerular Filtration Rate 32 mL/min (>60); Est Glom Filt Rate - Afr Amer 39 mL/min (>60); Estimated Creatinine Clearance 25.66 ml/min; Globulin 3.2 g/dL (2.2-4.2); Glucose 143 mg/dL (74-106); Potassium 3.9 mmol/L (3.5-5.1); Protein, Total 6.4 g/dL (6.4-8.2); Sodium Level 136 mmol/L (136-145); Troponin-I HS 21.5 pg/mL (3.0-78.5)
[2021-03-24 08:46] LABS: Bacteria 0 SEEN /hpf (None Seen); Mucous, Urine 0 SEEN /hpf (<or=2+); Red Blood Cells-Urine 0 SEEN /hpf (0-5); Squamous Epithelial Cells - UA 0 SEEN /hpf (0-5); White Blood Cells 0 SEEN /hpf (0-5)
[2021-03-24 08:53] LABS: Color, Urine Yellow (Yellow); Glucose, Dipstick Normal (Normal); Ketone-Dipstick Negative (Negative); Leukocyte Esterase-Dipstick Negative /ul (Negative); Nitrite-Dipstick Negative (Negative); Occult Blood-Urine Negative /ul (Negative); Protein-Dipstick Negative (Negative); Urine Bilirubin Dipstick Negative (Negative); Urine Clarity Sl. Cloudy (Clear); Urine Urobilinogen 4 mg/dl (Normal)
[2021-03-24 09:07] LABS: Lactic Acid 2.3 mmol/L (0.4-1.9)
[2021-03-24] MEDS: 0.9% Normal Saline 1,000 ML 999 ML IV (09:27)
--- NOTE | 2021-03-24 09:56 | NURSING ---
DR ZIYAD SNOW
--- NOTE | 2021-03-24 12:00 | HP.PCM.HOS_ITS ---
HPI - General General Date of Admission: 03/24/21 Date of Service: 03/24/21 Chief Complaint: fever. chills HPI Narrative ROBERTO ALAS, is a 85 M who presents presents with fever and chills. Patient was seen in the emergency room and no source of infection was identified and the patient was discharged. Today, he had a positive blood culture and the patient was told to come back into the emergency room. Patient stated that his leg today developed erythema but this was not noted by the emergency room physician. Patient states that he has had cellulitis before but has never been this sick. Patient did receive vancomycin in the emergency room. [facility] Medical History Atherosclerosis of coronary artery of [place] heart without angina pectoris Body mass index (bmi) 32.0-32.9, adult Carotid bruit Chronic diastolic heart failure Constipation Hyperlipidemia Hypotension Palpitations Paroxysmal atrial fibrillation Prostate enlargement Secondary pulmonary arterial hypertension Shortness of breath Home Medications lbgolpyd-wel-AA-lycopen-lutein 1 tab PO DAILY 05/24/13 [History Last Taken 03/23/21] lactobacillus combination no.9 4 billion cell capsule 4,000 mmu cells PO DAILY 12/10/20 [History Last Taken Unknown] amiodarone 100 mg PO QDAY 03/24/21 [History Last Taken 03/23/21] amoxicillin-pot clavulanate 875 mg PO Q12H 03/24/21 [History Last Taken Unknown] aspirin [Adult Aspirin Regimen] 81 mg PO QDAY 03/24/21 [History Last Taken 03/23/21] furosemide [Lasix] 40 mg PO DAILY 03/24/21 [History Last Taken 03/24/21] handicap placard See Rx Instructions .ROUTE .COMPLEX 03/24/21 [History Last Taken Unknown] lovastatin 40 mg PO QHS 03/24/21 [History Last Taken 03/23/21] metolazone 2.5 mg PO .prn PRN 03/24/21 [History Last Taken 03/17/21] potassium chloride 10 meq PO .prn PRN 03/24/21 [History Last Taken 03/17/21] rivaroxaban 15 mg PO DAILY 03/24/21 [History Last Taken 03/23/21] Allergy/AdvReac Type Severity Reaction Status Date / Time spironolactone AdvReac Elevated Verified 03/24/21 07:28 Potassium Family History Mother CAD (coronary artery disease) Brother CAD (coronary artery disease) Surgical History 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 Constipation. All review of systems were negative except as mentioned above in the history of present illness and the other review of systems. Vital Signs Vital Signs Vital Signs: 03/24/21 07:28 03/24/21 08:13 03/24/21 10:27 Temperature 35.6 C L 36.6 C Temperature Source Temporal Temporal Pulse Rate 68 62 Respiratory Rate 14 20 H Respiratory Effort Short of Breath Blood Pressure 133/58 H 127/62 H Blood Pressure Mean 83 83 Blood Pressure Source Blood Pressure Position Blood Pressure Location Pulse Ox 96 96 Oxygen Delivery Method Room Air Room Air Room Air 03/24/21 11:04 Temperature 37.1 C Temperature Source Temporal Pulse Rate 64 Respiratory Rate 20 H Respiratory Effort Blood Pressure 137/59 H Blood Pressure Mean 85 Blood Pressure Source Monitor Blood Pressure Position Semi-Fowlers Blood Pressure Location Left Arm Pulse Ox 98 Oxygen Delivery Method Room Air Weight Weight: 101.179 kg Body Mass Index (BMI) 33.9 Physical Exam Const alert and no apparent distress General Appearance: cooperative HEENT normocephalic and moist oral mucous membranes Resp normal respiratory effort, no retractions, no use of accessory muscles and clear to auscultation bilaterally Cardio regular rate, regular rhythm, S1 normal heart sound and S2 normal heart sound GI normal to inspection, nondistended, normoactive bowel sounds, soft to palpation, non-tender and non-distended Extremity normal to inspection Skin Skin Narrative: Macular redness on the lower extremity that is confluent below the knee and above the ankle. Neuro Sensorium / Orientation: awake, alert, oriented to person and oriented to place Results Lab / Micro Data Result Diagrams: 03/24/21 08:05 03/24/21 08:05 Labs: Laboratory Results - last 24 hr 03/24/21 08:05: WBC 19.7 H, RBC 4.10 L, Hgb 12.9 L, Hct 38.0 L, MCV 92.7, MCH 31.5, MCHC 33.9, RDW Std Deviation 48.3 H, RDW Coeff of Radha 14.2, Plt Count 115 L, MPV 9.6, Immature Gran % (Auto) 0.500, Neut % (Auto) 92.5 H, Lymph % (Auto) 3.3 L, [place] % (Auto) 3.5, Eos % (Auto) 0.0, Baso % (Auto) 0.2, Absolute Neuts (auto) 18.2 H, Absolute Lymphs (auto) 0.65 L, Nucleated RBC % 0 03/24/21 08:05: Sodium 136, Potassium 3.9, Chloride 102, Carbon Dioxide 26.0, Anion Gap 8, BUN 35 H, Creatinine 2.11 H, Estim Creat Clear Calc 25.66, Est GFR (MDRD) Af Amer 39 L, Est GFR (MDRD) Non-Af 32 L, BUN/Creatinine Ratio 16.6, Glucose 143 H, Calcium 8.2 L, Total Bilirubin 1.80 H, AST 65 H, ALT 82 H, Alkaline Phosphatase 96, Troponin I High Sens 21.5, Total Protein 6.4, Albumin 3.2, Globulin 3.2, Albumin/Globulin Ratio 1.0 03/24/21 08:05: Lactic Acid 2.3 H* 03/24/21 08:39: Urine Color Yellow, Urine Clarity Sl. Cloudy, Urine pH 7.0, Ur Specific [place] 1.010, Urine Protein Negative, Urine Glucose (UA) Normal, Urine Ketones Negative, Urine Occult Blood Negative, Urine Nitrite Negative, Urine Bilirubin Negative, Urine Urobilinogen 4 H, Ur Leukocyte Esterase Negative, Urine RBC 0 SEEN, Urine WBC 0 SEEN, Ur Squamous Epith Cells 0 SEEN, Urine Bacteria 0 SEEN, Urine Mucus 0 SEEN Radiology Impression Chest X-Ray 03/24/21 07:51 IMPRESSION: There is marked diffuse pulmonary interstitial thickening, similar to prior exam, in keeping with pulmonary edema and/or viral pneumonia. Low lung volume. Electronically Signed: Reena Workman MD at 9:58 EDT Tel , Service support , Assessment & Plan Assessment/Plan (1) Sepsis: QUALIFIERS: Sepsis type: Streptococcus group B Sepsis acute organ dysfunction status: with acute organ dysfunction Severe sepsis acute organ dysfunction type: unspecified Severe sepsis shock status: without septic shock Qualified Code(s): A40.1 - Sepsis due to streptococcus, group B; R65.20 - Severe sepsis without septic shock (2) Cellulitis: QUALIFIERS: Site of cellulitis: extremity Site of cellulitis of extremity: lower extremity Laterality: right Qualified Code(s): L03.115 - Cellulitis of right lower limb (3) Bacteremia: PLAN: 1. Sepsis Present on 03/23 with patient presented to the emergency room at that time Secondary to cellulitis and bacteremia qSOFA score on the was 2 Patient did receive IV fluids in the emergency room 2. Right lower extremity cellulitis Likely source of the bacteremia Continued vancomycin 3. Bacteremia Group B strep Likely secondary to the cellulitis Repeat blood cultures 4. Atrial fibrillation Continue with amiodarone and rivaroxaban 5. Chronic dyspnea Outpatient follow-up no acute changes 6. VTE prophylaxis: Not indicated as patient is already anticoagulated 7. Advanced care planning: Discussed with the patient. Patient was to be full CODE STATUS at this time. 8. Medical maintenance: Patient has been vaccinated for COVID-19 with Moderna vaccine. Charges/Coding Visit Charges Inpatient E&M: 88433 Init Hosp L3
[2021-03-24 12:11] LABS: Reflex Lactate? Y
--- NOTE | 2021-03-24 12:37 | PCM.RX.CS ---
Consult Pharmacy has been consulted to manage selected antiobiotic: Vancomycin Type of Consult: New start Suspected Infection: Sepsis Labs: Sodium 136 mmol/L (136-145) 03/24/21 08:05 Potassium 3.9 mmol/L (3.5-5.1) 03/24/21 08:05 Chloride 102 mmol/L (98-107) 03/24/21 08:05 Carbon Dioxide 26.0 mmol/L (21.0-32.0) 03/24/21 08:05 Anion Gap 8 (5-15) 03/24/21 08:05 BUN 35 mg/dL (7-18) H 03/24/21 08:05 Creatinine 2.11 mg/dL (0.70-1.30) H 03/24/21 08:05 Est GFR (MDRD) Af Amer 39 mL/min (>60) L 03/24/21 08:05 Est GFR (MDRD) Non-Af 32 mL/min (>60) L 03/24/21 08:05 BUN/Creatinine Ratio 16.6 RATIO (10-20) 03/24/21 08:05 Glucose 143 mg/dL (74-106) H 03/24/21 08:05 Goal Trough: 15-20 mcg/mL Pharmacy Plan for Drug Dosing: NEW START IV VANCOMYCIN Consulting Physician: LIZETH LACKEY Indication: SEPSIS Goal Trough: 15-20 SrCr: 2.11 MG/DL CrCl: 25.66 ML/MIN Comments: LOADING DOSE OF 2000MG TO BE GIVEN @ 1300 03/24/21 Vancomcyin Dose: 1000MG IVPB Q24H TO START @ 1300 03/25/21 Pending Level: 03/27/21 @ 1230 Pharmacy Service will continue to monitor and adjust dosing as required.
[2021-03-24] MEDS: Amiodarone 200 MG Tablet 100 MG PO (12:52)
[2021-03-24] MEDS: Aspirin E.C. 81 MG Tablet PO (12:52)
[2021-03-24 13:18] LABS: Lactic Acid 1.6 mmol/L (0.4-1.9)
[2021-03-24] MEDS: Atorvastatin Calcium 10 MG Tablet PO (20:43)
--- NOTE | 2021-03-24 22:36 | NURSING ---
Pandemic Charting 03/24/211899
[2021-03-25 02:30] VITALS: BP 131/59; PULSE 65; RESP 16; TEMP 37.1; O2SAT 96
[2021-03-25 03:00] VITALS: PULSE 63
[2021-03-25] MEDS: MELATONIN 3 MG TABLET PO (03:08)
[2021-03-25 05:04] LABS: Absolute Lymphocyte Count 1.12 X10^3/uL (0.83-4.51); Absolute Neutrophil Count 10.2 X10^3/uL (2.0-7.7); Basophil# 0.02 X10^3/uL; Basophil% 0.2 % (0-1); Eosinophil# 0.01 X10^3/uL; Eosinophils% 0.1 % (0-5); Hematocrit 36.4 % (40-54); Lymphocyte # 1.12 X10^3/ul (0.83-4.51); Lymphocyte % 9.3 % (19-41); Mean Corpuscular Hgb 31.6 pg (27.0-32.0); Mean Corpuscular Volume 95.8 fL (80-94); Mean Platelet Vol. 9.5 fl (6.2-12.0); Monocyte# 0.62 X10^3/uL; Monocyte% 5.1 % (0-10); NRBC Flagged by Analyzer 0 % (0-5); Neutrophil # 10.21 X10^3/uL (2.7-7.7); Neutrophil % 84.8 % (47-70); Platelet Count 105 K/mm3 (150-450); RBC Distribution Width CV 14.5 % (11.6-14.6); RBC Distribution Width SD 50.4 fl (35.1-43.9)
[2021-03-25 05:27] LABS: AST(SGOT) 32 U/L (15-37); Alanine Aminotransfer ALT/SGPT 57 U/L (16-61); Alkaline Phosphatase 86 U/L (45-117); Anion Gap 6 (5-15); BUN 30 mg/dL (7-18); BUN/Creat Ratio 16.7 RATIO (10-20); Calcium,Total 8.3 mg/dL (8.5-10.1); Chloride 107 mmol/L (98-107); EST Glomerular Filtration Rate 38 mL/min (>60); Est Glom Filt Rate - Afr Amer 47 mL/min (>60); Estimated Creatinine Clearance 30.08 ml/min; Glucose 131 mg/dL (74-106); Potassium 3.6 mmol/L (3.5-5.1); Sodium Level 138 mmol/L (136-145)
--- NOTE | 2021-03-25 07:01 | PCM.RX.CS ---
Consult Pharmacy has been consulted to manage selected antiobiotic: Vancomycin Type of Consult: Follow-up Suspected Infection: Sepsis Labs: Sodium 138 mmol/L (136-145) 03/25/21 04:54 Potassium 3.6 mmol/L (3.5-5.1) 03/25/21 04:54 Chloride 107 mmol/L (98-107) 03/25/21 04:54 Carbon Dioxide 25.0 mmol/L (21.0-32.0) 03/25/21 04:54 Anion Gap 6 (5-15) 03/25/21 04:54 BUN 30 mg/dL (7-18) H 03/25/21 04:54 Creatinine 1.80 mg/dL (0.70-1.30) H 03/25/21 04:54 Est GFR (MDRD) Af Amer 47 mL/min (>60) L 03/25/21 04:54 Est GFR (MDRD) Non-Af 38 mL/min (>60) L 03/25/21 04:54 BUN/Creatinine Ratio 16.7 RATIO (10-20) 03/25/21 04:54 Glucose 131 mg/dL (74-106) H 03/25/21 04:54 Pharmacy Plan for Drug Dosing: DAILY ASSESSMENT Current Vancomycin Dose: 1000mg Q24H Number of Doses Received: 1500mg x1 IN ER Current Renal Function: SCR 1.8 MG/DL, CRCL 35.8ML/MIN (USING ADJ BW) Renal Function Trend: SCR IMPROVED FROM 2.11 Lab/Micro: PENDING Any Change in Vanc Plan: YES, RENAL FUNCTION IMPROVED FROM CRCL 25ML/MIN TO 35 ML/MIN. DOSE CHANGE FROM 1000MG Q24H TO 1500MG Q24H PER POLICY. TROUGH CHANGED TO PRIOR TO 3RD DOSE DUE TO Q24H DOSING. Pending Level: 03/26/21 @ 1130 Pharmacy Service will continue to monitor and adjust dosing as required.
[2021-03-25 07:29] VITALS: PULSE 60
[2021-03-25 08:30] VITALS: BP 132/63; PULSE 66; RESP 16; TEMP 36.6; O2SAT 98
[2021-03-25] MEDS: Amiodarone 200 MG Tablet 100 MG PO (09:08)
[2021-03-25] MEDS: Multivitamins,Ther W-Minerals Tablet 1 TABLET PO (09:08)
[2021-03-25] MEDS: Aspirin E.C. 81 MG Tablet PO (09:08)
--- NOTE | 2021-03-25 11:48 | PCM.DC ---
Discharge Instructions Diet Discharge Diet: No restrictions Activity Discharge Activity: Return to Normal Activity Dressing / Incision Call your doctor if your incision/area has: Continuous Slow Oozing, Sudden Increased Bleeding, Increased Pain/ Swelling, Increased Redness, Foul Smelling Discharge and Swelling at the incision site Call your doctor if you observe: Fever of 101 or Higher, Shortness of breath, Dizziness and Chest pain Follow Up Care Test Results: Test results from this visit will be discussed in further detail at your follow-up appointment, if applicable. Discharge Plan Admission Admit Date/Time: 03/24/21 11:59 Primary Reason for Your Visit: Sepsis, right lower extremity cellulitis with bacteremia Attending Provider: Vick Zamudio Primary Care Provider: Roshni Physician,Jesica Primary Discharge Orders/Prescriptions Prescriptions: Continued Adult 50 Plus Probiotic 4 billion cell capsule 4,000 mmu cells PO DAILY RF: 0 xdavknvp-njw-FA-lycopen-lutein 1 EACH tablet 1 tab PO DAILY RF: 0 metolazone 2.5 mg tablet 2.5 mg PO .prn PRN (Reason: SOB) RF: 0 amiodarone 200 mg tablet 100 mg PO QDAY RF: 0 lovastatin 40 mg tablet 40 mg PO QHS RF: 0 potassium chloride 10 mEq tablet extended release 10 meq PO .prn PRN (Reason: SOB with metolazone) RF: 0 aspirin [Adult Aspirin Regimen] 81 mg tablet,delayed release (DR/EC) 81 mg PO QDAY RF: 0 furosemide [Lasix] 80 mg tablet 40 mg PO DAILY RF: 0 rivaroxaban 15 mg tablet 15 mg PO DAILY RF: 0 handicap placard See Rx Instructions .ROUTE .COMPLEX RF: 0 amoxicillin-pot clavulanate 875 MG tablet 875 mg PO Q12H Qty: 6 RF: 0 Referrals / Follow Up: Care Physician,No Primary [Primary Care Provider] - In 1 Week Disposition Disposition (needs filled in before D/C Order can be placed): Home, Self Care
--- NOTE | 2021-03-25 12:20 | CASEMGMT ---
JOSEFINA KAY assessment: Face to Face with patient for initial transition planning/care coordination assessment. JOSEFINA KAY introduced self and role at [facility], pt voices understanding and consents to assessment. Pt is sitting up in chair in no distress on room air. Pt is A/Ox4 and answers all questions appropriately. Pt's is at bedside during assessment. Care providers, pharmacy, and demographics verified. Presentation: Pt was seen in ED night before and called to come back in for blood cultures Admitting dx: Sepsis, cellulitis PCP: Pt states was with Dr. Shine but has not picked a new physician. Pt states has a list at home. Specialists: Jeb, cardio Preferred Pharmacy: [facility] Insurance: [employer] Prescription Benefit: [employer] Living Will/HPOA: Pt states has LW/HPOA and is aware that they are not on file at [facility]. Pt states , Emmanuelle Arevalo, is HPOA. LNOK: Emmanuelle Arevalo, ; Sylvia Aparicio, daughter Living Arrangements: Pt states lives with in 1 story home and states no concerns at home. Pt states is independent with ADL's. Transportation: Pt states drives self and states no transportation concerns. DME/HHC: Pt states no current DME or need for any further DME. Pt states no hx of HHC or SNF in the past. Pt states no concerns with going home at time of discharge. Pt is retired. Pt states does not smoke cigarettes or drink ETOH. Pt states no further concerns/needs. CM to follow for any further discharge planning/needs. Advised pt to ask for CM if any further questions/concerns/needs arise, voices understanding. Pt Goal: Home Plan[place] JOSEFINA KAY
--- NOTE | 2021-03-25 12:45 | PCM.DC.SUM ---
Documented by User: Alma Osborne NP, QUALITY IMPROVEMENT MANAGER-C 03/25/21 12:52 Providers Date of Admission: 03/24/21 Date of Discharge: 03/25/21 Primary Care Physician: No Primary Care Phys Reason For Visit: SEPSIS / CELLULITIS Diagnosis Discharge Diagnosis (1) Sepsis: Status: Acute Code(s): A41.9 - Sepsis, unspecified organism Qualifiers: Sepsis acute organ dysfunction status: with acute organ dysfunction Sepsis type: Streptococcus group B Severe sepsis acute organ dysfunction type: unspecified Severe sepsis shock status: without septic shock Qualified Code(s): A40.1 - Sepsis due to streptococcus, group B; R65.20 - Severe sepsis without septic shock (2) Cellulitis: Status: Acute Code(s): L03.90 - Cellulitis, unspecified Qualifiers: Laterality: right Site of cellulitis: extremity Site of cellulitis of extremity: lower extremity Qualified Code(s): L03.115 - Cellulitis of right lower limb (3) Bacteremia: Status: Acute Code(s): R78.81 - Bacteremia Medications at Discharge Home Medications zwkjnltl-fks-FW-lycopen-lutein 1 tab PO DAILY 05/24/13 lactobacillus combination no.9 4 billion cell capsule 4,000 mmu cells PO DAILY 12/10/20 amiodarone 100 mg PO QDAY 03/24/21 aspirin [Adult Aspirin Regimen] 81 mg PO QDAY 03/24/21 furosemide [Lasix] 40 mg PO DAILY 03/24/21 handicap placard See Rx Instructions .ROUTE .COMPLEX 03/24/21 lovastatin 40 mg PO QHS 03/24/21 metolazone 2.5 mg PO .prn PRN 03/24/21 potassium chloride 10 meq PO .prn PRN 03/24/21 rivaroxaban 15 mg PO DAILY 03/24/21 amoxicillin-pot clavulanate 875 mg PO Q12H #6 tab 03/25/21 Hospital Course Operations None Procedures None Summary of Care Provided Minutes Spent on Discharge: 35 Hospital Course: Patient is an 85-year-old male admitted 03/24/2021 due to fever, chills, notified of positive blood cultures. 1. Sepsis secondary to right lower extremity cellulitis with associated group B strep bacteremia-IV vancomycin during admission. Discharged on Augmentin to complete 10-day course. Previously given 7-day course from ED, additional 3-day prescription given at discharge. Repeat blood cultures pending and will be followed at discharge. Follow-up with PCP within 1 week. 2. Paroxysmal atrial fibrillation-on amiodarone, Xarelto. 3. CAD with history of bypass/chronic heart failure with preserved ejection fraction-continue aspirin, statin. Echocardiogram June 2020 demonstrated an EF of 55%, stage II diastolic dysfunction. Continue home diuretic regimen. 4. Hypertension-stable. 5. Hyperlipidemia-continue statin. 6. Chronic dyspnea-following with pulmonary medicine for outpatient evaluation. 7. Chronic kidney disease stage IIIb-at baseline. Patient seen and examined prior to discharge. Physical assessment as noted below. Patient is stable for discharge with follow up recommendations as noted above. This patient was seen by YANDEL Novak under the supervision of Dr. Zamudio. Physical Exam Const alert, oriented x3 and no apparent distress Orientation / Consciousness: awake, oriented to person, oriented to place and oriented to time HEENT normocephalic and moist oral mucous membranes Eyes PERRL, EOMs intact bilaterally and conjunctivae normal Neck no lymphadenopathy Resp normal respiratory effort and clear to auscultation bilaterally Cardio regular rate, regular rhythm and no murmurs Peripheral Pulses: pulses 2+ throughout GI normal to inspection, nondistended, normoactive bowel sounds, non-tender and non-distended Extremity normal to inspection Skin no rashes or lesions noted Skin Narrative: Right lower extremity erythema, improving. Right lower extremity 2+ pitting edema. Lesions: no lesions Rashes: no rashes Trauma: no lacerations or abrasions Neuro CN's II-XII intact bilaterally, no focal motor deficits, no sensory deficits noted and deep tendon reflexes 2+ bilaterally Psych mental status grossly normal and affect normal Weight / BMI Weight Weight: 223 lb 1.725 oz Body Mass Index (BMI) 33.9 ABG / Lab / Microbiology Data Result Diagrams: 03/25/21 04:54 03/25/21 04:54 Laboratory: Laboratory Results - last 24 hr 03/24/21 12:38: Lactic Acid 1.6 03/25/21 04:54: WBC 12.0 H, RBC 3.80 L, Hgb 12.0 L, Hct 36.4 L, MCV 95.8 H, MCH 31.6, MCHC 33.0, RDW Std Deviation 50.4 H, RDW Coeff of Radha 14.5, Plt Count 105 L, MPV 9.5, Immature Gran % (Auto) 0.500, Neut % (Auto) 84.8 H, Lymph % (Auto) 9.3 L, [place] % (Auto) 5.1, Eos % (Auto) 0.1, Baso % (Auto) 0.2, Absolute Neuts (auto) 10.2 H, Absolute Lymphs (auto) 1.12, Nucleated RBC % 0 03/25/21 04:54: Sodium 138, Potassium 3.6, Chloride 107, Carbon Dioxide 25.0, Anion Gap 6, BUN 30 H, Creatinine 1.80 H, Estim Creat Clear Calc 30.08, Est GFR (MDRD) Af Amer 47 L, Est GFR (MDRD) Non-Af 38 L, BUN/Creatinine Ratio 16.7, Glucose 131 H, Calcium 8.3 L, Total Bilirubin 1.20 H, AST 32, ALT 57, Alkaline Phosphatase 86, Total Protein 6.0 L, Albumin 3.0 L, Globulin 3.0, Albumin/Globulin Ratio 1.0 D/C Instructions Discharge Diet: No restrictions Call your doctor if your incision/area has: Continuous Slow Oozing, Sudden Increased Bleeding, Increased Pain/ Swelling, Increased Redness, Foul Smelling Discharge and Swelling at the incision site Call your doctor if you observe: Fever of 101 or Higher, Shortness of breath, Dizziness and Chest pain Meaningful Use Info Meaningful Use Diagnoses (Choose all that apply): None applicable Discharge Plan Admission Admit Date/Time: 03/24/21 11:59 Primary Reason for Your Visit: Sepsis, right lower extremity cellulitis with bacteremia Attending Provider: Vick Zamudio Primary Care Provider: Care Physician,Jesica Primary Discharge Orders/Prescriptions Prescriptions: Continued Adult 50 Plus Probiotic 4 billion cell capsule 4,000 mmu cells PO DAILY RF: 0 rccycqax-ero-PY-lycopen-lutein 1 EACH tablet 1 tab PO DAILY RF: 0 metolazone 2.5 mg tablet 2.5 mg PO .prn PRN (Reason: SOB) RF: 0 amiodarone 200 mg tablet 100 mg PO QDAY RF: 0 lovastatin 40 mg tablet 40 mg PO QHS RF: 0 potassium chloride 10 mEq tablet extended release 10 meq PO .prn PRN (Reason: SOB with metolazone) RF: 0 aspirin [Adult Aspirin Regimen] 81 mg tablet,delayed release (DR/EC) 81 mg PO QDAY RF: 0 furosemide [Lasix] 80 mg tablet 40 mg PO DAILY RF: 0 rivaroxaban 15 mg tablet 15 mg PO DAILY RF: 0 handicap placard See Rx Instructions .ROUTE .COMPLEX RF: 0 amoxicillin-pot clavulanate 875 MG tablet 875 mg PO Q12H Qty: 6 RF: 0 Referrals / Follow Up: Care Physician,No Primary [Primary Care Provider] - In 1 Week Disposition Disposition (needs filled in before D/C Order can be placed): Home, Self Care Documented by User: Dr. Vick Zamudio DO 03/25/21 14:10 Providers Date of Admission: 03/24/21 Reason For Visit: SEPSIS / CELLULITIS Medications at Discharge Home Medications kcarzwkh-sxu-IU-lycopen-lutein 1 tab PO DAILY 05/24/13 lactobacillus combination no.9 4 billion cell capsule 4,000 mmu cells PO DAILY 12/10/20 amiodarone 100 mg PO QDAY 03/24/21 aspirin [Adult Aspirin Regimen] 81 mg PO QDAY 03/24/21 furosemide [Lasix] 40 mg PO DAILY 03/24/21 handicap placard See Rx Instructions .ROUTE .COMPLEX 03/24/21 lovastatin 40 mg PO QHS 03/24/21 metolazone 2.5 mg PO .prn PRN 03/24/21 potassium chloride 10 meq PO .prn PRN 03/24/21 rivaroxaban 15 mg PO DAILY 03/24/21 amoxicillin-pot clavulanate 875 mg PO Q12H #6 tab 03/25/21 ABG / Lab / Microbiology Data Result Diagrams: 03/25/21 04:54 03/25/21 04:54 Discharge Plan Admission Admit Date/Time: 03/24/21 11:59 Primary Reason for Your Visit: Sepsis, right lower extremity cellulitis with bacteremia Attending Provider: Vick Zamudio Primary Care Provider: Jesica Perez Primary Discharge Orders/Prescriptions Prescriptions: Continued Adult 50 Plus Probiotic 4 billion cell capsule 4,000 mmu cells PO DAILY RF: 0 lfztwdab-rii-XO-lycopen-lutein 1 EACH tablet 1 tab PO DAILY RF: 0 metolazone 2.5 mg tablet 2.5 mg PO .prn PRN (Reason: SOB) RF: 0 amiodarone 200 mg tablet 100 mg PO QDAY RF: 0 lovastatin 40 mg tablet 40 mg PO QHS RF: 0 potassium chloride 10 mEq tablet extended release 10 meq PO .prn PRN (Reason: SOB with metolazone) RF: 0 aspirin [Adult Aspirin Regimen] 81 mg tablet,delayed release (DR/EC) 81 mg PO QDAY RF: 0 furosemide [Lasix] 80 mg tablet 40 mg PO DAILY RF: 0 rivaroxaban 15 mg tablet 15 mg PO DAILY RF: 0 handicap placard See Rx Instructions .ROUTE .COMPLEX RF: 0 amoxicillin-pot clavulanate 875 MG tablet 875 mg PO Q12H Qty: 6 RF: 0 Referrals / Follow Up: Care Physician,No Primary [Primary Care Provider] - In 1 Week Disposition Disposition (needs filled in before D/C Order can be placed): Home, Self Care Charges/Coding Addendum Addendum: Patient seen and examined independently. Data and vitals reviewed. I agree with the above note by the nurse practitioner. 85-year-old male presents with bacteremia. Was seen the day before had a fever unknown origin but was discharged with Augmentin. Was actually feeling better but advised to come in to the hospital because of group B strep in his blood culture. Patient subsequent developed erythema on his the right lower extremity. Beforehand, patient just felt sick but did not have a rash but once he started feeling better the rash did present itself. The etiology of the patient's bacteremia was due to his underlying cellulitis. Patient had repeat blood cultures drawn which thus far have not shown any organism. Patient given the options to go home and that we can follow-up blood cultures but told him that if it is positive we may have to have him come back to the hospital and do additional studies, such as echocardiogram. Versus staying here to wait for those cultures to be negative after 48 hours. He chose the former which I told him I felt was reasonable. This was discussed with his as well who is in agreement. Physical exam: Patient is no acute distress and afebrile. Resolving erythema of the right lower extremity. Rash does not extend beyond the lines of demarcation. Assessment and plan 1. Sepsis Present on 03/23 with patient presented to the emergency room at that time Secondary to cellulitis and bacteremia qSOFA score on the was 2 Patient did receive IV fluids in the emergency room 2. Right lower extremity cellulitis Likely source of the bacteremia Continued vancomycin 3. Bacteremia Group B strep Likely secondary to the cellulitis Repeat blood cultures negative so far Visit Charges Inpatient E&M: 81609 Disch Hosp
[2021-03-25 14:15] VITALS: BP 134/59; PULSE 63; RESP 16; TEMP 36.5; O2SAT 97
--- NOTE | 2021-03-26 15:45 | CASEMGMT ---
MIKE DC F/u Call DC Date: 03/25/21 DC Diagnosis: Sepsis, Cellulitis, Bacteremia DC Disposition: Home Lace/Strata: 05/11 Called patient home number, answered by patient Emmanuelle. Introduced self and role. Per , patient is doing well and currently sitting out on patio getting some sun. Has a f/u appointment with WOLF Hopkins next Wednesday. Denies any issues, questions or concerns with ACI, medications or f/u. States picked up Amoxicillin and has been taking. Thanked them for choosing care at [facility] and phone conversation was ended. MIKE Church
== END 2021-03-25 15:12 | disposition home or self-care (01) | DRG 872 ==
LOC: ED 10:04 → PCU 12:17
PROVIDERS: Emergency Provider Emergency Medicine
DX: A40.1 Sepsis due to streptococcus, group B (principal); I50.32 Chronic diastolic (congestive) heart failure; L03.115 Cellulitis of right lower limb; I13.0 Hypertensive heart and chronic kidney disease with heart failure and stage 1 through stage 4 chronic kidney disease, or unspecified chronic kidney disease; I25.10 Atherosclerotic heart disease of native coronary artery without angina pectoris; R65.20 Severe sepsis without septic shock; E78.5 Hyperlipidemia, unspecified; I48.0 Paroxysmal atrial fibrillation; B95.1 Streptococcus, group B, as the cause of diseases classified elsewhere; Z79.01 Long term (current) use of anticoagulants; N18.32 Chronic kidney disease, stage 3b; I27.21 Secondary pulmonary arterial hypertension; N40.0 Benign prostatic hyperplasia without lower urinary tract symptoms; Z82.49 Family history of ischemic heart disease and other diseases of the circulatory system; Z79.82 Long term (current) use of aspirin; Z90.49 Acquired absence of other specified parts of digestive tract; Z95.1 Presence of aortocoronary bypass graft
CPT/HCPCS: 36415; 71045; 80053; 81001; 83605; 84484; 85025; 87040; 93005; 99285; J7030; J7040; A4216

== ENCOUNTER → 2021-07-24 11:57 | Outpatient (CLI) | payer MEDICARE, SELFPAY ==
[2021-07-24 13:18] LABS: Anion Gap 5 (5-15); BUN 34 mg/dL (7-18); BUN/Creat Ratio 13.8 RATIO (10-20); Calcium,Total 9.2 mg/dL (8.5-10.1); Chloride 101 mmol/L (98-107); Creatinine, Serum 2.47 mg/dL (0.70-1.30); EST Glomerular Filtration Rate 27 mL/min (>60); Est Glom Filt Rate - Afr Amer 32 mL/min (>60); Glucose 92 mg/dL (74-106); Potassium 3.7 mmol/L (3.5-5.1); Sodium Level 139 mmol/L (136-145)
[2021-07-24 13:27] LABS: AST(SGOT) 21 U/L (15-37); Alanine Aminotransfer ALT/SGPT 23 U/L (16-61); Albumin, Serum 3.7 g/dL (3.2-5.0); Alkaline Phosphatase 128 U/L (45-117); Bilirubin, Direct 0.25 mg/dL (0.00-0.30); Cholesterol 163 mg/dL (200); Globulin 3.6 g/dL (2.2-4.2); High Density Lipoprotein 47 mg/dL; Protein, Total 7.3 g/dL (6.4-8.2); Triglycerides 129 mg/dL; Very Low Density Lipoprotein 26 mg/dL (5-40)
== END ==
PROVIDERS: Physician Assistant Medical; PCP Family Medicine; Referring Provider Internal Medicine Cardiovascular Disease; Visit Provider Internal Medicine Cardiovascular Disease
DX: E78.00 Pure hypercholesterolemia, unspecified (principal); E78.5 Hyperlipidemia, unspecified; R06.09 Other forms of dyspnea; I49.8 Other specified cardiac arrhythmias; I25.10 Atherosclerotic heart disease of native coronary artery without angina pectoris; Z95.1 Presence of aortocoronary bypass graft; I48.0 Paroxysmal atrial fibrillation; I50.32 Chronic diastolic (congestive) heart failure; I27.21 Secondary pulmonary arterial hypertension
CPT/HCPCS: 36415; 80048; 80061; 80076

== ENCOUNTER 2021-08-25 10:44 | Day surgery (SDC) | payer MEDICARE, SELFPAY ==
[2021-08-22 06:59] VITALS: BMI 30.4
--- NOTE | 2021-08-25 12:18 | PRO.PCM_ITS ---
Assessment & Plan Assessment/Plan (1) Persistent atrial fibrillation: (2) Paroxysmal atrial fibrillation: (3) Chronic diastolic heart failure: (4) Secondary pulmonary arterial hypertension: Procedure Report Date of Procedure: 08/25/21 CONSCIOUS SEDATION REPORT BRIEF HISTORY OF PRESENT ILLNESS: The patient is an 86-year-old male who presented to [facility] for an elective outpatient cardioversion due to underlying atrial fibrillation. The patient reports no PO intake since midnight, but is currently therapeutic on anticoagulation. The patient does not have a history of CORTEZ. The patient reports no history of smoking and COPD. The patient denies any recent c onstitutional symptoms such as fevers, chills, nausea or vomiting. The patient denies previous applicable anesthetic complications. Patient's last ejection fraction was 55%. Patient did have a cardioversion in May 07, 2020 and tolerated well with propofol PHYSICAL EXAMINATION: VITAL SIGNS: Reviewed and were acceptable. GENERAL: The patient is a male, in no apparent distress, speaking in full sentences. HEENT: Normocephalic, atraumatic. Mucous membranes are moist and pink. Good mouth opening noted. Trachea is midline. Good neck mobility. MP III CHEST: S1, S2 irregularly irregular. No murmurs, rubs or gallops were noted. LUNGS: Clear to auscultation bilaterally without appreciable wheezes, rales or rhonchi. ABDOMEN: Soft, nontender, nondistended. Positive bowel sounds. EXTREMITIES: There is no clubbing, cyanosis or edema. ASA Class: II DESCRIPTION OF PROCEDURE: After confirmation of informed consent, the patient's anesthesia plan was reviewed in detail. Propofol was chosen. Risks and benefits were reviewed and the patient agreed to proceed. At 11:52 AM, the patient was given 40 mg of propofol. The patient required a total of 60 mg of propofol throughout the procedure to achieve appropriate sedation. The patient achieved an appropriate level of sedation and received 1 attempt synchronized cardioversion, at [address] Russ at the bedside. This was successful in achieving normal sinus rhythm. The patient was monitored until, at which time the patient reached their baseline mental status and function. The patient tolerated the procedure well. COMPLICATIONS: None ESTIMATED BLOOD LOSS: None RECOMMENDATIONS: Okay to recover in usual fashion. Procedures Pulmonary 9xxxx: [id number] Con Sedation
--- NOTE | 2021-08-25 12:38 | OP.PCM_ITS ---
Problems Associated Problem List Diagnoses (1) Persistent atrial fibrillation: Operative Report Date of Procedure: 08/25/21 DC cardioversion. Patient is an 86-year-old man with a history of persistent atrial fibrillation on anticoagulation which has been verified. The patient was seen by Dr. Mcdaniel of the critical care division. After informed consent was obtained anterior- posterior pads were applied. The patient was then administered 60 mg of intravenous propofol. 200 J of synchronized DC cardioversion energy were applied with prompt reversal to sinus rhythm. Patient tolerated the procedure well. Post operative EKG confirmed sinus rhythm. Conclusion: Successful DC cardioversion from atrial fibrillation to sinus rhythm. Follow-up per office protocol.
== END 2021-08-25 23:59 | disposition home or self-care (01) ==
PROVIDERS: PCP Family Medicine; Referring Provider Internal Medicine Cardiovascular Disease; Visit Provider Internal Medicine Cardiovascular Disease
DX: I48.19 Other persistent atrial fibrillation (principal); I11.0 Hypertensive heart disease with heart failure; I50.32 Chronic diastolic (congestive) heart failure; I27.21 Secondary pulmonary arterial hypertension; I25.10 Atherosclerotic heart disease of native coronary artery without angina pectoris; Z95.1 Presence of aortocoronary bypass graft; Z79.82 Long term (current) use of aspirin; Z79.899 Other long term (current) drug therapy; Z79.01 Long term (current) use of anticoagulants
CPT/HCPCS: 92960; 93005; J7040

== ENCOUNTER 2021-09-02 10:43 | Outpatient (CLI) | payer MEDICARE, SELFPAY ==
[2021-09-02 11:40] LABS: BNP,B-Type NATRIURETIC PEPTIDE 231.3 pg/mL (0-100)
[2021-09-02 11:43] LABS: Anion Gap 6 (5-15); BUN 34 mg/dL (7-18); BUN/Creat Ratio 15.5 RATIO (10-20); Calcium,Total 9.2 mg/dL (8.5-10.1); Chloride 104 mmol/L (98-107); Creatinine, Serum 2.19 mg/dL (0.70-1.30); EST Glomerular Filtration Rate 31 mL/min (>60); Est Glom Filt Rate - Afr Amer 37 mL/min (>60); Glucose 97 mg/dL (74-106); Potassium 3.6 mmol/L (3.5-5.1); Sodium Level 139 mmol/L (136-145)
== END 2021-09-02 23:59 | disposition short-term general hospital (02) ==
PROVIDERS: PCP Family Medicine; Visit Provider Nurse Practitioner Family
DX: I48.0 Paroxysmal atrial fibrillation (principal); R06.09 Other forms of dyspnea
CPT/HCPCS: 36415; 80048; 83880

== ENCOUNTER 2021-10-08 08:57 | Outpatient (CLI) | payer MEDICARE, SELFPAY ==
[2021-10-08 11:41] LABS: Hematocrit 46.4 % (40-54); Hemoglobin 16.4 g/dL (13.0-16.5); Mean Corp Hgb Conc 35.3 g/dL (32-36); Mean Corpuscular Hgb 32.9 pg (27.0-32.0); Mean Corpuscular Volume 93.2 fL (80-94); Mean Platelet Vol. 9.8 fl (6.2-12.0); Platelet Count 150 K/mm3 (150-450); RBC Distribution Width CV 14.4 % (11.6-14.6); RBC Distribution Width SD 49.1 fl (35.1-43.9); Red Blood Count 4.98 M/mm3 (4.6-6.2); White Blood Count 7.8 K/mm3 (4.4-11.0)
[2021-10-08 12:11] LABS: BNP,B-Type NATRIURETIC PEPTIDE 196.7 pg/mL (0-100)
[2021-10-08 12:37] LABS: Anion Gap 9 (5-15); BUN 36 mg/dL (7-18); BUN/Creat Ratio 12.5 RATIO (10-20); Calcium,Total 9.2 mg/dL (8.5-10.1); Chloride 97 mmol/L (98-107); Creatinine, Serum 2.89 mg/dL (0.70-1.30); EST Glomerular Filtration Rate 22 mL/min (>60); Est Glom Filt Rate - Afr Amer 27 mL/min (>60); Glucose 113 mg/dL (74-106); Potassium 3.3 mmol/L (3.5-5.1); Sodium Level 137 mmol/L (136-145)
== END 2021-10-08 23:59 | disposition home or self-care (01) ==
LOC: LAB 08:59
PROVIDERS: PCP Family Medicine; Visit Provider Nurse Practitioner Family
DX: I50.32 Chronic diastolic (congestive) heart failure (principal)
CPT/HCPCS: 36415; 80048; 83880; 85027

== ENCOUNTER 2021-10-29 10:29 | Day surgery (SDC) | payer MEDICARE, SELFPAY ==
[2021-10-28 08:55] VITALS: BMI 33.4
--- NOTE | 2021-10-29 12:35 | PCM.OP.PRO ---
Procedure Report Date of Procedure: 10/29/21 CONSCIOUS SEDATION REPORT DATE OF SERVICE: October 29, 2021 BRIEF HISTORY OF PRESENT ILLNESS: The patient is an 86-year-old male who presented to [facility] for an elective outpatient cardioversion due to underlying atrial fibrillation. His last surface echocardiogram demonstrated an ejection fraction of approximately 55%. The patient did undergo a prior cardioversion in August 2021, during which time, 60 mg of propofol was utilized for sedation purposes. The patient is currently anticoagulated on Xarelto. PHYSICAL EXAMINATION: VITAL SIGNS: Reviewed and were acceptable. GENERAL: The patient is a male, in no apparent distress, speaking in full sentences. HEENT: Normocephalic, atraumatic. Mucous membranes are moist and pink. Good mouth opening noted. Trachea is midline. MPIII CHEST: S1, S2 irregularly irregular. No murmurs, rubs or gallops were noted. LUNGS: Clear to auscultation bilaterally without appreciable wheezes, rales or rhonchi. ABDOMEN: Soft, nontender, nondistended. Positive bowel sounds. EXTREMITIES: There is no clubbing, cyanosis or edema. ASA Class: II DESCRIPTION OF PROCEDURE: After confirmation of informed consent, the patient's anesthesia plan was reviewed in detail. Propofol was chosen. Risks and benefits were reviewed and the patient agreed to proceed. At 1218, the patient was given 60 mg of propofol. The patient achieved an appropriate level of sedation and was given a 200 joule synchronized cardioversion by Dr. Russ at the bedside. This was successful in achieving normal sinus rhythm. The patient was monitored until 1230, at which time he reached his baseline mental status and function. The patient tolerated the procedure well. COMPLICATIONS: None ESTIMATED BLOOD LOSS: None RECOMMENDATIONS: Okay to recover in usual fashion. Procedures Pulmonary 9xxxx: [id number] Con Sedation
--- NOTE | 2021-10-29 13:03 | PCM.OP.BLANK ---
Problems Associated Problem List Diagnoses (1) Persistent atrial fibrillation: Operative Report Date of Procedure: 10/29/21 DC cardioversion. 86-year-old man with a history of symptomatic atrial fibrillation. Patient has been anticoagulated. Patient was seen by Dr. Allen of the critical care division. The patient was in the nonsedated fasting state. Informed consent was obtained. Anterior-posterior pads were applied. The patient was administered 60 mg of intravenous propofol. 200 J of synchronized biphasic cardioversion energy was applied with prompt reversal to sinus rhythm. Patient tolerated the procedure well. Conclusion: Successful DC cardioversion from atrial fibrillation to sinus rhythm. Continue as per office protocol.
== END 2021-10-29 23:59 | disposition home or self-care (01) ==
LOC: CLSP 10:30
PROVIDERS: PCP Family Medicine; Referring Provider Internal Medicine Cardiovascular Disease; Visit Provider Internal Medicine Cardiovascular Disease
DX: I48.19 Other persistent atrial fibrillation (principal); I11.0 Hypertensive heart disease with heart failure; I50.32 Chronic diastolic (congestive) heart failure; I25.10 Atherosclerotic heart disease of native coronary artery without angina pectoris; Z95.1 Presence of aortocoronary bypass graft; E78.5 Hyperlipidemia, unspecified; Z82.49 Family history of ischemic heart disease and other diseases of the circulatory system; Z90.49 Acquired absence of other specified parts of digestive tract; R53.83 Other fatigue; R06.02 Shortness of breath; N28.9 Disorder of kidney and ureter, unspecified
CPT/HCPCS: 92960; 93005; J7040

== ENCOUNTER 2021-11-05 10:18 | Outpatient (CLI) | payer MEDICARE, SELFPAY ==
[2021-11-05 11:35] LABS: Anion Gap 4 (5-15); BUN 31 mg/dL (7-18); Chloride 108 mmol/L (98-107); Creatinine, Serum 2.39 mg/dL (0.70-1.30); EST Glomerular Filtration Rate 28 mL/min (>60); Est Glom Filt Rate - Afr Amer 34 mL/min (>60); Glucose 106 mg/dL (74-106); Potassium 4.5 mmol/L (3.5-5.1); Sodium Level 139 mmol/L (136-145)
== END 2021-11-05 23:59 | disposition home or self-care (01) ==
LOC: LAB 10:19
PROVIDERS: PCP Family Medicine; Referring Provider Physician Assistant Medical; Visit Provider Physician Assistant Medical
DX: N28.9 Disorder of kidney and ureter, unspecified (principal)
CPT/HCPCS: 36415; 80048

== ENCOUNTER → 2021-12-11 | Outpatient (CLI) | payer MEDICARE, SELFPAY ==
[2021-12-11 13:07] LABS: Albumin, Serum 3.6 g/dL (3.2-5.0); BUN 32 mg/dL (7-18); BUN/Creat Ratio 13.8 RATIO (10-20); Calcium,Total 9.1 mg/dL (8.5-10.1); Chloride 102 mmol/L (98-107); Creatinine, Serum 2.32 mg/dL (0.70-1.30); EST Glomerular Filtration Rate 29 mL/min (>60); Est Glom Filt Rate - Afr Amer 35 mL/min (>60); Glucose 102 mg/dL (74-106); Potassium 3.8 mmol/L (3.5-5.1); Sodium Level 139 mmol/L (136-145)
== END | disposition home or self-care (01) ==
PROVIDERS: PCP Family Medicine; Visit Provider Internal Medicine Nephrology
DX: N18.4 Chronic kidney disease, stage 4 (severe) (principal)
CPT/HCPCS: 36415; 80069; 83970

== ENCOUNTER → 2021-12-16 | Outpatient (CLI) | payer MEDICARE, SELFPAY ==
--- NOTE | 2021-12-16 16:33 | US_ITS ---
STUDY: RENAL ULTRASOUND - COMPLETE REASON FOR EXAM: Male, 86 years old. CHRONIC KIDNEY DISEASE TECHNIQUE: Ultrasound evaluation of the kidneys was performed with real-time and static arreola-scale imaging. COMPARISON: None. FINDINGS: RIGHT KIDNEY: Normal location of the right kidney, which is normal in size. The right kidney measures 10.5 cm. Increased echogenicity of the renal cortex consistent with chronic medical renal disease or advanced age. The renal cortex measures 1.2 cm. 2 cm cyst lower pole right kidney. There are no right renal calculi. There is no right hydronephrosis. DISTAL RIGHT URETER: There is non-visualization of the distal right ureter. There is no demonstrated right ureterovesical junction calculus. There is a visualized right ureteral jet. LEFT KIDNEY: Normal location of the left kidney, which is normal in size. The left kidney measures 11.4 cm. Increased echogenicity of the cortex consistent with chronic medical renal disease or advanced age. The renal cortex measures 1.5 cm. 2 cm cyst in the midsection of left kidney. There are no left renal calculi. There is no left hydronephrosis. DISTAL LEFT URETER: There is non-visualization of the distal left ureter. There is no demonstrated left ureterovesical junction calculus. There is a visualized left ureteral jet. BLADDER: The distended urinary bladder has a volume of 93 ml. The empty urinary bladder has a volume of 20 ml. There is a normal wall thickness of the distended urinary bladder. There is no demonstrated mass within the urinary bladder. There are no demonstrated bladder calculi. US/Kidney and Bladder IMPRESSION: Chronic medical renal disease but no hydronephrosis to suggest obstruction. Electronically Signed: Hill Celestin MD at 17:17 EDT ,
== END | disposition home or self-care (01) ==
PROVIDERS: PCP Family Medicine; Referring Provider Internal Medicine Nephrology; Visit Provider Internal Medicine Nephrology
DX: N18.4 Chronic kidney disease, stage 4 (severe) (principal)
CPT/HCPCS: 76770

== ENCOUNTER → 2022-01-07 | Outpatient (CLI) | payer MEDICARE, SELFPAY ==
[2022-01-07 14:07] LABS: Albumin, Serum 3.7 g/dL (3.2-5.0); BUN 31 mg/dL (7-18); BUN/Creat Ratio 14.2 RATIO (10-20); Chloride 102 mmol/L (98-107); Creatinine, Serum 2.18 mg/dL (0.70-1.30); EST Glomerular Filtration Rate 31 mL/min (>60); Est Glom Filt Rate - Afr Amer 37 mL/min (>60); Glucose 142 mg/dL (74-106); Phosphorus 2.7 mg/dL (2.5-4.9); Potassium 3.3 mmol/L (3.5-5.1); Sodium Level 140 mmol/L (136-145)
== END | disposition home or self-care (01) ==
LOC: LAB 11:15
PROVIDERS: PCP Family Medicine; Referring Provider Internal Medicine Nephrology; Visit Provider Internal Medicine Nephrology
DX: N18.4 Chronic kidney disease, stage 4 (severe) (principal)
CPT/HCPCS: 36415; 80069

== ENCOUNTER → 2022-03-18 | Outpatient (CLI) | payer MEDICARE, SELFPAY ==
[2022-03-18 11:19] LABS: AST(SGOT) 21 U/L (15-37); Alanine Aminotransfer ALT/SGPT 22 U/L (16-61); Albumin, Serum 3.5 g/dL (3.2-5.0); Alkaline Phosphatase 118 U/L (45-117); Anion Gap 9 (5-15); BUN 26 mg/dL (7-18); BUN/Creat Ratio 11.3 RATIO (10-20); Bilirubin, Direct 0.29 mg/dL (0.00-0.30); Calcium,Total 8.9 mg/dL (8.5-10.1); Chloride 102 mmol/L (98-107); Cholesterol 159 mg/dL (200); EST Glomerular Filtration Rate 29 mL/min (>60); Est Glom Filt Rate - Afr Amer 35 mL/min (>60); Globulin 3.2 g/dL (2.2-4.2); Glucose 117 mg/dL (74-106); High Density Lipoprotein 39 mg/dL; Phosphorus 2.9 mg/dL (2.5-4.9); Potassium 3.8 mmol/L (3.5-5.1); Protein, Total 6.7 g/dL (6.4-8.2); Sodium Level 138 mmol/L (136-145); Triglycerides 195 mg/dL; Very Low Density Lipoprotein 39 mg/dL (5-40)
== END | disposition home or self-care (01) ==
LOC: LAB 10:03
PROVIDERS: Physician Assistant Medical; PCP Family Medicine; Referring Provider Internal Medicine Nephrology; Visit Provider Internal Medicine Nephrology
DX: N18.4 Chronic kidney disease, stage 4 (severe) (principal)
CPT/HCPCS: 36415; 80048; 80061; 80076; 84100

== ENCOUNTER → 2022-08-20 | Outpatient (CLI) | payer MEDICARE, SELFPAY ==
[2022-08-20 11:28] LABS: PTHIN 78.7 pg/mL (18.4-80.1)
[2022-08-20 11:31] LABS: Albumin, Serum 3.6 g/dL (3.2-5.0); BUN 25 mg/dL (7-18); BUN/Creat Ratio 12.6 RATIO (10-20); Chloride 109 mmol/L (98-107); Creatinine, Serum 1.98 mg/dL (0.70-1.30); EST Glomerular Filtration Rate 34 mL/min (>60); Est Glom Filt Rate - Afr Amer 42 mL/min (>60); Glucose 97 mg/dL (74-106); Potassium 4.7 mmol/L (3.5-5.1); Sodium Level 141 mmol/L (136-145)
[2022-08-20 11:40] LABS: AST(SGOT) 17 U/L (15-37); Alanine Aminotransfer ALT/SGPT 18 U/L (16-61); Albumin, Serum 3.7 g/dL (3.2-5.0); Alkaline Phosphatase 106 U/L (45-117); Bilirubin, Direct 0.31 mg/dL (0.00-0.30); Cholesterol 123 mg/dL (200); Globulin 3.1 g/dL (2.2-4.2); High Density Lipoprotein 40 mg/dL; Protein, Total 6.8 g/dL (6.4-8.2); Triglycerides 105 mg/dL; Very Low Density Lipoprotein 21 mg/dL (5-40)
== END | disposition home or self-care (01) ==
PROVIDERS: Internal Medicine Cardiovascular Disease; PCP Family Medicine; Referring Provider Internal Medicine Nephrology; Visit Provider Internal Medicine Nephrology
DX: N18.4 Chronic kidney disease, stage 4 (severe) (principal); I25.10 Atherosclerotic heart disease of native coronary artery without angina pectoris; E78.5 Hyperlipidemia, unspecified
CPT/HCPCS: 36415; 80061; 80069; 80076; 83970

== ENCOUNTER 2022-12-15 08:40 | Inpatient (IN) | payer MEDICARE, SELFPAY ==
[2022-12-15] VITALS (11 sets, daily range): BP systolic 106–150; BP diastolic 55–123; PULSE 80–92; RESP 16–20; TEMP 36.8–37.4; O2SAT 89–96; BMI 33.8; BMI 32.6
--- NOTE | 2022-12-15 08:57 | EKG12_ITS ---
Test Reason : Blood Pressure : / mmHG Vent. Rate : 088 BPM Atrial Rate : 086 BPM P-R Int : 000 ms QRS Dur : 204 ms QT Int : 474 ms P-R-T Axes : 000 -66 058 degrees QTc Int : 573 ms Ventricular-paced rhythm Abnormal ECG Confirmed by CARMEN BRENNAN, TIMOTEO ([id number]), editor news MAGY JAMES ([id number]) on 12/16/2022 12:50:26 P M Referred By: OBEY Confirmed By:RAMA MORALES MD
--- NOTE | 2022-12-15 08:58 | RAD_ITS ---
STUDY: X-RAY CHEST REASON FOR EXAM: Male, 87 years old. Dyspnea TECHNIQUE: AP and lateral views of the chest. COMPARISON: Comparison is made with prior study March 24, 2001. FINDINGS: EKG electrodes are seen. Elevation of the right hemidiaphragm. Vascular congestion and CHF. Sternal cerclage wires and vascular clips are present from a prior sternotomy and coronary artery bypass graft procedure (CABG). Cardiomegaly. Normal mediastinum and alaina. Normal visualized pulmonary arteries. There is atherosclerotic calcification of the aortic arch with tortuosity. Normal visualized thoracic spine. Normal visualized ribs, clavicles, and shoulders. There is no demonstrated abnormality of the visualized soft tissue structures of the upper abdomen. RAD/Chest PA and Lateral IMPRESSION: Cardiomegaly and CHF. Electronically Signed: Domo Appiah MD at 9:53 EDT ,
--- NOTE | 2022-12-15 08:59 | EDS_ITS ---
HPI History of Present Illness Chief Complaint: General Illness Informant: patient, spouse/S.O. and family Onset/Context/Timing Onset: Days Context: Gradual Onset Timing: Continuous Current Severity: Mild Maximum Severity: Mild Narrative Narrative: 87-year-old male significant cardiac history with A-fib, junctional rhythm, CAD, CABG, pacemaker on Xarelto. Also has a history of renal insufficiency. Complaining of generalized weakness that began last . Normally walks without difficulty. Not having use a walker. He was so weak that he was unable to get out of chair at home and unable to get out of the bathtub over the weekend. Family had to lift him out. He had a low-grade temperature of 99. He has chronic shortness of breath. He does state he has a mild cough of clear to white phlegm. No vomiting or diarrhea. No dysuria. 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) Atherosclerosis of coronary artery of [place] heart without angina pectoris Bacteremia Body mass index (bmi) 32.0-32.9, adult Carotid bruit Cellulitis Chronic diastolic heart failure Complete heart block (02/13/22) Hyperlipidemia Palpitations Paroxysmal atrial fibrillation Prostate enlargement Renal insufficiency Secondary pulmonary arterial hypertension Shortness of breath Home Medications tflqlyen-vdx-bgbmt acid 0.4 mg-lycopene 300 mcg-lutein 250 mcg tablet 1 tab PO DAILY supplement 05/24/13 [History Last Taken 12/14/22] lactobacillus combination no.9 4 billion cell capsule (Adult 50 Plus Probiotic) 4,000 mmu cells PO DAILY supplement 12/10/20 [History Last Taken 12/14/22] potassium chloride 10 mEq tablet,extended release 10 meq PO .prn PRN SOB with metolazone 03/24/21 [History Last Taken 12/14/22] metolazone 2.5 mg tablet 2.5 mg PO .COMPLEX PRN BP 09/10/22 [History Last Taken 12/14/22] aspirin 81 mg tablet,delayed release (Adult Aspirin Regimen) 81 mg PO QDAY Antiplatelet, CAD #90 tabs 09/17/22 [Rx Last Taken 12/14/22] lovastatin 40 mg tablet 40 mg PO QHS heart disease #90 tabs 09/17/22 [Rx Last Taken 12/14/22] rivaroxaban 15 mg tablet 15 mg PO DAILY blood clot prevention #90 tabs 11/20/22 [Rx Last Taken 12/14/22] furosemide 80 mg tablet 80 mg PO DAILY fluid retention 12/15/22 [History Last Taken 12/14/22] Allergy/AdvReac Type Severity Reaction Status Date / Time spironolactone AdvReac Elevated Verified 12/15/22 08:40 Potassium Family History Mother CAD (coronary artery disease) Brother CAD (coronary artery disease) Surgical History H/O coronary artery bypass surgery (09/20/97) History of appendectomy History of cardioversion (08/25/21) History of left heart catheterization (12/12/14) 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 Chronic shortness of breath. Low-grade temperature 99. Review of Systems ROS Unobtainable: Denies due to encephalopathy Constitutional Constitutional ED: Denies chills or fever(s) Eyes Eyes: Denies blurry vision ENT ENT ED: Denies ear pain Cardiovascular Cardiovascular: Denies chest pain Respiratory/Chest Respiratory/Chest: Reports dyspnea Gastrointestinal Gastrointestinal: Denies abdominal pain, constipation, diarrhea, melena, nausea or vomiting Genitourinary Genitourinary ED: Reports urinary frequency; Denies dysuria or hematuria Musculoskeletal Musculoskeletal: Denies arthralgias Integumentary Denies abscess Neurologic Neurologic: Denies headache(s) Psychiatric Psychiatric: Denies anxiety Endocrine Endocrinology: Denies cold intolerance Hematologic/Lymphatic Hematologic/Lymphatic: Reports none Allergic/Immunologic Allergic/Immunologic ED: Denies mouth swelling or tongue swelling EXAM Physical Exam Narrative Exam Narrative: 87-year-old male vital signs stable initial blood pressure 140s over 123 that will be rechecked. Pulse ox 95% on room air no hypoxia. Temperature nine 9.3. Patient does not look septic or toxic. He is in no distress. Family and at bedside. H EENT exam unremarkable. Moist mucous membranes. Neck nontender. No lymphadenopathy. No JVD. Lungs clear to auscultation bilaterally. Heart rate about 85. No murmur. Abdomen soft, nontender, nondistended, normal bowel sounds no peritoneal signs. Moving all 4 extremities. 5-5 tier lift operator strength. Dorsi plantarflexion intact. 1+ pitting edema both lower extremities. Venous stasis changes in right leg. No cellulitis. Dorsi plantarflexion intact. Neurologically is awake and alert with no focal motor deficits. Back nontender. Skin unremarkable. Const Vital Signs: 12/15/22 08:42 12/15/22 09:19 Temperature 99.3 F H Temperature Source Temporal Pulse Rate 85 Respiratory Rate 20 H Respiratory Effort Normal Non-Labored Respiratory Pattern Normal Blood Pressure 147/123 H Blood Pressure Mean 131 Pulse Ox 95 Oxygen Delivery Method Room Air Positive well nourished, well developed and obese; Negative for cachectic, contractures or unkempt General Appearance ED: well developed; Negative for unkempt, cachectic, contractures or pallor Nutritional Appearance: obese; Negative for cachectic HEENT Reports moist mucous membranes; Denies dry mucous membranes Negative for trauma or tenderness Mouth ED: No dry mucous membranes Mouth: No dry mucous membranes Eyes PERRL and EOMs intact bilaterally General Eye ED: Negative for pale conjunctiva or scleral icterus Neck no lymphadenopathy, supple and no JVD General: Negative for tenderness Lymph Lymphatic: Negative for other Chest Wall inspection of chest normal and palpation of chest normal Chest: Negative for other Resp normal respiratory effort and clear to auscultation bilaterally Effort and Inspection: Negative for retractions Auscultation: Negative for rales, rhonchi or wheezes Cardio regular rate, S1 normal heart sound, S2 normal heart sound and no murmurs GI normal to inspection, nondistended, normoactive bowel sounds, non-tender and non-distended Inspection: Negative for abdominal distention Auscultation: normoactive bowel sounds Palpation: soft; Negative for tender or guarding Bladder / Kidney Exam: No other Back/Spine no CVA tenderness General Back: Negative for CVA tenderness Cervical Spine: Negative for cervical spine tenderness Thoracic Spine / Upper Back: Negative for thoracic spinal tenderness Lumbar Spine / Lower Back: Negative for lumbar spinal tenderness Extremity Negative for normal to inspection Extremity Narrative: 1+ pitting edema both lower extremities. General Extremety ED: Yes edema; Negative for tenderness General Extremity: edema Neuro oriented x3 and CN's II-XII intact bilaterally Sensorium / Orientation: alert; Negative for orientation impaired, lethargic or stuporous Motor Exam: strength 5/5 throughout Psych mental status grossly normal Appearance: Negative for unkempt Attitude: No agitated Mood & Affect: Negative for depressed, anxious or tearful Skin no rashes or lesions noted and no wounds General Skin Exam: elasticity normal; Negative for jaundice or pallor Lesions: No lesion noted Rashes: No rashes noted Trauma: Negative for abrasion Wounds: Negative for wounds noted MDM MDM MDM Narrative Medical decision making narrative: 87-year-old male generalized weakness to the point where he is having trouble getting out of chairs at home and out of the bathtub over the weekend. No falls or trauma. Low-grade temperature 99.3. Undergoing infectious work-up. Most likely will need admission. Repeat exam at 10:15 AM unchanged. Nurses will try to ambulate the patient but he is very weak when he tried to get him out of bed. I will speak to the hospitalist about admission. I went over all the test results with patient and family. Due to his chest x-ray and peripheral edema he will be given 40 mg IV Lasix. History & Record Review Discussion w/independent historian: Patient, Family and Significant other Lab Data Attestation: I reviewed the patient's lab results. Lab results narrative: CBC shows a white count of 15.7. H&H of 13.8 and 39. Platelets are little low at 133. Electrolytes show a gap of 9. BUN and creatinine of 42 and 1.88 he has a history of chronic renal insufficiency these are his baseline. Glucose of 120. Liver enzymes show an alk phos of 158. Total bilirubin 2.4. Urinalysis is negative. No nitrates. No white or red cells. No bacteria. Chest x-ray consistent with CHF. Lactic acid 2.0. BNP 357. Labs: Laboratory Results - last 24 hr 12/15/22 12/15/22 12/15/22 09:18 09:20 09:20 WBC 15.7 H RBC 4.31 L Hgb 13.8 Hct 39.4 L MCV 91.4 MCH 32.0 MCHC 35.0 RDW Std Deviation 48.7 H RDW Coeff of Radha 14.4 Plt Count 133 L MPV 9.6 Immature Gran % (Auto) 0.900 Neut % (Auto) 88.8 H Lymph % (Auto) 3.6 L Haakon % (Auto) 6.6 Eos % (Auto) 0.0 Baso % (Auto) 0.1 Absolute Neuts (auto) 14.0 H Absolute Lymphs (auto) 0.56 L Nucleated RBC % 0 Differential Comment SCANNED Sodium 135 L Potassium 4.9 Chloride 101 Carbon Dioxide 25.0 Anion Gap 9 BUN 42 H Creatinine 1.88 H Estim Creat Clear Calc 27.79 Est GFR (MDRD) Af Amer 44 L Est GFR (MDRD) Non-Af 36 L BUN/Creatinine Ratio 22.3 H Glucose 120 H Lactic Acid Calcium 9.4 Total Bilirubin 2.40 H AST 60 H ALT 51 Alkaline Phosphatase 158 H Troponin I High Sens 43 B-Natriuretic Peptide Total Protein 6.9 Albumin 2.7 L Globulin 4.2 Albumin/Globulin Ratio 0.6 L Urine Color Yellow Urine Clarity Clear Urine pH 6.0 Ur Specific [place] 1.015 Urine Protein 30 H Urine Glucose (UA) Normal Urine Ketones 5 H Urine Occult Blood 25 H Urine Nitrite Negative Urine Bilirubin Negative Urine Urobilinogen 1 H Ur Leukocyte Esterase Negative Urine RBC Not Reportable Urine WBC 0-5 SEEN Ur Squamous Epith Cells Not Reportable Urine Bacteria 0 SEEN Urine Mucus 0 SEEN 12/15/22 12/15/22 09:20 09:20 WBC RBC Hgb Hct MCV MCH MCHC RDW Std Deviation RDW Coeff of Radha Plt Count MPV Immature Gran % (Auto) Neut % (Auto) Lymph % (Auto) Haakon % (Auto) Eos % (Auto) Baso % (Auto) Absolute Neuts (auto) Absolute Lymphs (auto) Nucleated RBC % Differential Comment Sodium Potassium Chloride Carbon Dioxide Anion Gap BUN Creatinine Estim Creat Clear Calc Est GFR (MDRD) Af Amer Est GFR (MDRD) Non-Af BUN/Creatinine Ratio Glucose Lactic Acid 2.0 Calcium Total Bilirubin AST ALT Alkaline Phosphatase Troponin I High Sens B-Natriuretic Peptide 357.7 H Total Protein Albumin Globulin Albumin/Globulin Ratio Urine Color Urine Clarity Urine pH Ur Specific [place] Urine Protein Urine Glucose (UA) Urine Ketones Urine Occult Blood Urine Nitrite Urine Bilirubin Urine Urobilinogen Ur Leukocyte Esterase Urine RBC Urine WBC Ur Squamous Epith Cells Urine Bacteria Urine Mucus Radiography Chest X-Ray - ED: 2 View, Heart, Bony Structures, No Acute Disease, CHF and No Infiltrates Diagnostic Testing: Clinical Impression(s) from Imaging Studies Chest X-Ray 12/15/22 08:58 IMPRESSION: Cardiomegaly and CHF. Electronically Signed: Domo Appiah MD at 9:53 EDT , Chest x-ray, 2 views, AP and lateral, prior sternotomy. Exam consistent with congestive heart failure with pulmonary edema Rhythm Strip Rhythm Strip: Paced Rate: 88 Ectopy: None EKG Initial EKG: Attestation: I personally reviewed and interpreted this EKG as follows: Interpretation: Paced Comments: Ventricularly paced rhythm rate of 88. Discharge Plan Triage Chief Complaint: General Illness ED Provider: Nilo Zarate Dx/Rx/DC Orders Clinical Impression: Chronic diastolic heart failure, Generalized weakness, Chronic renal insufficiency Prescriptions: No Action Adult 50 Plus Probiotic 4 billion cell capsule 4,000 mmu cells PO DAILY Rx Instructions: administer with a meal dypqhuwj-hvn-BJ-lycopen-lutein 1 EACH tablet 1 tab PO DAILY Label Comments: MULTIVITAMIN potassium chloride 10 mEq tablet extended release 10 meq PO .prn PRN (Reason: SOB with metolazone) Rx Instructions: only takes with metolazone furosemide 80 mg tablet 80 mg PO DAILY Rx Instructions: current dose is 40 mg a day, sometimes pt needs to increase to 80 mg. metolazone 2.5 mg tablet 2.5 mg PO .COMPLEX PRN (Reason: BP) Rx Instructions: 2.5 mg orally 1-2 times per week PRN; lovastatin 40 mg tablet 40 mg PO QHS Qty: 90 3RF aspirin [Adult Aspirin Regimen] 81 mg tablet,delayed release (DR/EC) 81 mg PO QDAY Qty: 90 3RF rivaroxaban 15 mg tablet 15 mg PO DAILY Qty: 90 3RF Primary Care Provider: Enrique Kennedy Referrals: Enrique Kennedy MD [Primary Care Provider] - Disposition Disposition: Acute Care Hospital [facility]
[2022-12-15 09:20] LABS: Bacteria 0 SEEN /hpf (None Seen); Mucous, Urine 0 SEEN /hpf (<or=2+)
[2022-12-15 09:21] LABS: Color, Urine Yellow (Yellow); Glucose, Dipstick Normal (Normal); Ketone-Dipstick 5 mg/dl (Negative); Leukocyte Esterase-Dipstick Negative /ul (Negative); Nitrite-Dipstick Negative (Negative); Occult Blood-Urine 25 /ul (Negative); Protein-Dipstick 30 mg/dl (Negative); Specific Gravity, Urine 1.015 (1.002-1.030); Urine Bilirubin Dipstick Negative (Negative); Urine Clarity Clear (Clear); Urine Urobilinogen 1 mg/dl (Normal)
[2022-12-15 09:28] LABS: Absolute Lymphocyte Count 0.56 X10^3/uL (0.83-4.51); Basophil# 0.02 X10^3/uL; Basophil% 0.1 % (0-1); Hematocrit 39.4 % (40-54); Hemoglobin 13.8 g/dL (13.0-16.5); Lymphocyte # 0.56 X10^3/ul (0.83-4.51); Lymphocyte % 3.6 % (19-41); Mean Corpuscular Volume 91.4 fL (80-94); Mean Platelet Vol. 9.6 fl (6.2-12.0); Monocyte# 1.04 X10^3/uL; Monocyte% 6.6 % (0-10); NRBC Flagged by Analyzer 0 % (0-5); Neutrophil # 13.96 X10^3/uL (2.7-7.7); Neutrophil % 88.8 % (47-70); POSITIVE DIFFERENTIAL YES; Platelet Count 133 K/mm3 (150-450); RBC Distribution Width CV 14.4 % (11.6-14.6); RBC Distribution Width SD 48.7 fl (35.1-43.9); Red Blood Count 4.31 M/mm3 (4.6-6.2); White Blood Count 15.7 K/mm3 (4.4-11.0)
[2022-12-15 09:29] LABS: Differential Indicated SCAN CRITERIA MET
[2022-12-15 09:34] LABS: White Blood Cells 0-5 SEEN /hpf (0-5)
[2022-12-15 09:45] LABS: Differential Comment SCANNED
[2022-12-15 09:50] LABS: ALB/GLOB Ratio 0.6 RATIO (0.9-2.4); AST(SGOT) 60 U/L (15-37); Alanine Aminotransfer ALT/SGPT 51 U/L (16-61); Albumin, Serum 2.7 g/dL (3.2-5.0); Alkaline Phosphatase 158 U/L (45-117); Anion Gap 9 (5-15); BUN 42 mg/dL (7-18); BUN/Creat Ratio 22.3 RATIO (10-20); Calcium,Total 9.4 mg/dL (8.5-10.1); Chloride 101 mmol/L (98-107); Creatinine, Serum 1.88 mg/dL (0.70-1.30); EST Glomerular Filtration Rate 36 mL/min (>60); Est Glom Filt Rate - Afr Amer 44 mL/min (>60); Estimated Creatinine Clearance 27.79 ml/min; Globulin 4.2 g/dL (2.2-4.2); Glucose 120 mg/dL (74-106); Potassium 4.9 mmol/L (3.5-5.1); Protein, Total 6.9 g/dL (6.4-8.2); Sodium Level 135 mmol/L (136-145); Troponin-I HS 43 pg/mL (3.0-78.0)
[2022-12-15 10:00] LABS: BNP,B-Type NATRIURETIC PEPTIDE 357.7 pg/mL (0-100)
--- NOTE | 2022-12-15 10:31 | PCM.HP.STD ---
HPI - General General Date of Admission: 12/15/22 Date of Service: 12/15/22 Chief Complaint: Shortness of Breath/Fatigue HPI Narrative ROBERTO ALAS, is a 87 M who presented to the emergency department at [facility] on 12/15/2022 with worsening edema, fatigue, and shortness of breath. Patient has a known history of chronic diastolic heart failure. The patient has chronic fatigue as well however he has noted worsening fatigue since about last Wednesday. He noted on Wednesday he was taking a bath and tried to get out of the bathtub but was unable to independently which is abnormal for him. He called his and she tried to help him however they were not able to get him out of the bathtub and his family had to come over and help. He is slowly worsened since that point in time. He states he is about 10 pounds above his baseline weight of 205 pounds. He has been compliant with his home medications and states his appetite has not been all that great so has not been eating a lot. He did take a as needed metolazone per his home instructions on Wednesday for the increased weight. Dose is 2.5. He states that that did not really help him much and he decided come to the emergency department today as he is slowly getting worse. He denies any significant cough or sputum production. He has had no fever or chills. Denies sick contacts. He has had no dysuria, nausea, vomiting or diarrhea. He feels like his chronic shortness of breath has worsened. Vital signs at presentation showed a temperature of 99.3, blood pressure 147/123, respiratory rate 20, oxygen saturation was initially 95% on room air but he did desat to 89% on room air so was placed on 2 L nasal cannula which improved his oxygen saturations to between 92 and 96%. CBC shows a leukocytosis with a white count of 15.7 and a left shift with an 88.8% neutrophilia. Platelet count was 133,000. Chemistry panel showed mildly low sodium at 135 with an elevated BUN and creatinine at 42 and 1.88 respectively. These are actually slightly below his baseline values. His lactic acid was 1.4. Bilirubin was elevated at 2.4 and AST was 60. ALT was normal. BNP was 357.7. Troponin was 43. His UA shows some protein and occult blood but no signs of infection. Chest x-ray shows volume overload with central vascular congestion and an elevated right hemidiaphragm. EKG showed paced rhythm of ventricular pacing with a rate of 88. He was given a dose of Lasix, cultures were obtained but no antibiotics were initiated at this time as there is no identifiable source currently and request for admission was made. [facility] Medical History Accelerated junctional rhythm (03/23/21) Atherosclerosis of coronary artery of [place] heart without angina pectoris Bacteremia Body mass index (bmi) 32.0-32.9, adult Carotid bruit Cellulitis Chronic diastolic heart failure Complete heart block (02/13/22) Hyperlipidemia Palpitations Paroxysmal atrial fibrillation Prostate enlargement Renal insufficiency Secondary pulmonary arterial hypertension Shortness of breath Home Medications [id number] acid 0.4 mg-lycopene 300 mcg-lutein 250 mcg tablet 1 tab PO DAILY supplement 05/24/13 [History Last Taken 12/14/22] lactobacillus combination no.9 4 billion cell capsule (Adult 50 Plus Probiotic) 4,000 mmu cells PO DAILY supplement 12/10/20 [History Last Taken 12/14/22] potassium chloride 10 mEq tablet,extended release 10 meq PO .prn PRN SOB with metolazone 03/24/21 [History Last Taken 12/14/22] metolazone 2.5 mg tablet 2.5 mg PO .COMPLEX PRN BP 09/10/22 [History Last Taken 12/14/22] aspirin 81 mg tablet,delayed release (Adult Aspirin Regimen) 81 mg PO QDAY Antiplatelet, CAD #90 tabs 09/17/22 [Rx Last Taken 12/14/22] lovastatin 40 mg tablet 40 mg PO QHS heart disease #90 tabs 09/17/22 [Rx Last Taken 12/14/22] rivaroxaban 15 mg tablet 15 mg PO DAILY blood clot prevention #90 tabs 11/20/22 [Rx Last Taken 12/14/22] furosemide 80 mg tablet 80 mg PO DAILY fluid retention 12/15/22 [History Last Taken 12/14/22] Allergy/AdvReac Type Severity Reaction Status Date / Time spironolactone AdvReac Elevated Verified 12/15/22 08:40 Potassium Family History Mother CAD (coronary artery disease) Brother CAD (coronary artery disease) Surgical History H/O coronary artery bypass surgery (09/20/97) History of appendectomy History of cardioversion (08/25/21) History of left heart catheterization (12/12/14) 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) Hx of atrioventricular node ablation (05/07/22) Hx of cholecystectomy Social History Smoking Status: Never smoker alcohol intake: never substance use type: does not use caffeine: Yes Type: coffee Number of servings: 1 what type of physical activity do you participate in: none seatbelt use: always do you feel safe at home: Yes ROS Constitutional Constitutional: Reports change in weight, malaise and weakness; Denies anorexia, chills, fatigue, fever(s), night sweats or other Eyes Eyes: Denies blurry vision, change in eye color, change in vision, discharge from eye(s), double vision, erythema, eye pain, loss of vision or other ENT HEENT: Reports abnormal hearing and hearing loss; Denies dysphagia, ear pain, epistaxis, headache(s), nasal congestion, nasal discharge, post nasal drip, sinus pressure, sore throat or other Cardiovascular Cardiovascular: Reports dyspnea on exertion, edema and orthopnea; Denies chest pain, claudication, lightheadedness, palpitations, paroxysmal nocturnal dyspnea, rapid heart rate, syncope or other Respiratory/Chest Respiratory/Chest: Reports dyspnea, shortness of breath at rest and shortness of breath with exertion; Denies cough, excessive phlegm production, hemoptysis, productive cough, wheezing or other Gastrointestinal Gastrointestinal: Denies abdominal pain, coffee ground emesis, constipation, diarrhea, dyspepsia, hematemesis, hematochezia, loose stools, melena, nausea, vomiting or other Genitourinary Genitourinary: Denies burning urination, difficulty urinating, dysuria, hematuria, nocturia, urinary frequency, urinary hesitancy, urinary incontinence, urinary urgency or other Musculoskeletal Musculoskeletal: Reports joint pain, joint stiffness and neck pain Neurologic Neurologic: Denies abnormal gait, abnormal speech, confusion, disequilibrium, dizziness, focal weakness, headache(s), numbness, paresthesias, seizure-like activity, seizures, syncope, tingling, tremor(s) or other Psychiatric Psychiatric: Denies anxiety, depression, homicidal ideation, suicidal ideation or other Endocrine Endocrinology: Denies change in body appearance, cold intolerance, excessive sweating, heat intolerance, polydipsia, polyuria or other Hematologic/Lymphatic Hematologic/Lymphatic: Denies anemia, easy bleeding, easy bruising, lymphadenopathy or other Allergic/Immunologic Allergic/Immunologic: Denies rhinitis, hives, eczemia, asthma or other Vital Signs Vital Signs Vital Signs: 12/15/22 08:42 12/15/22 09:19 12/15/22 08:47 Temperature 99.3 F H 99.3 F H Temperature Source Temporal Temporal Pulse Rate 85 84 Respiratory Rate 20 H 20 H Respiratory Effort Normal Non-Labored Respiratory Pattern Normal Blood Pressure 147/123 H 130/103 H Blood Pressure Mean 131 112 Pulse Ox 95 94 Oxygen Delivery Method Room Air Room Air Oxygen Flow Rate (L/min) 12/15/22 09:47 12/15/22 10:00 Temperature 99.2 F H 99.3 F H Temperature Source Temporal Temporal Pulse Rate 82 80 Respiratory Rate 20 H 20 H Respiratory Effort Respiratory Pattern Blood Pressure 136/88 H 150/73 H Blood Pressure Mean 104 98 Pulse Ox 89 92 Oxygen Delivery Method Room Air Nasal Cannula Oxygen Flow Rate (L/min) 2 Weight Weight: 101 kg Body Mass Index (BMI) 33.8 Physical Exam Const alert, oriented x3, no apparent distress and well nourished General Appearance: cooperative HEENT normocephalic, head/scalp atraumatic and moist oral mucous membranes HEENT Narrative: Poor dentition, Mallampati 2 Eyes PERRL, EOMs intact bilaterally and conjunctivae normal Eyes Narrative: No scleral icterus Neck no lymphadenopathy, supple and no carotid bruits Neck Narrative: Positive JVD Resp No normal respiratory effort, no retractions, no use of accessory muscles and No clear to auscultation bilaterally Resp Narrative: Crackles bilateral bases and slightly diminished diffusely, mild tachypnea with conversation Auscultation: rales; Negative for rhonchi or wheezes Cardio regular rate, regular rhythm, S1 normal heart sound, S2 normal heart sound, no murmurs, no rub and no clicks; Negative for no gallops Cardio Narrative: S3 gallop present GI normal to inspection, nondistended, normoactive bowel sounds and soft to palpation Extremity Extremity Narrative: 2+ bilateral lower extremity pitting edema, pedal pulses are 1+, no clubbing or cyanosis Skin no wounds, skin turgor normal, no jaundice, no petechiae and no mottling Skin Narrative: Few scattered ecchymosis Neuro oriented x3, CN's II-XII intact bilaterally, moves all extremities and no focal motor deficits Neuro Narrative: Generalized weakness, sensation appears to be intact Speech: speech normal Psych affect normal Psych Narrative: Extremely pleasant, interacts appropriately Results Lab / Micro Data Attestation: I reviewed the patient's lab results. Result Diagrams: 12/15/22 09:20 12/15/22 09:20 Labs: Laboratory Results - last 24 hr 12/15/22 09:18: Urine Color Yellow, Urine Clarity Clear, Urine pH 6.0, Ur Specific [place] 1.015, Urine Protein 30 H, Urine Glucose (UA) Normal, Urine Ketones 5 H, Urine Occult Blood 25 H, Urine Nitrite Negative, Urine Bilirubin Negative, Urine Urobilinogen 1 H, Ur Leukocyte Esterase Negative, Urine RBC Not Reportable, Urine WBC 0-5 SEEN, Ur Squamous Epith Cells Not Reportable, Urine Bacteria 0 SEEN, Urine Mucus 0 SEEN 12/15/22 09:20: WBC 15.7 H, RBC 4.31 L, Hgb 13.8, Hct 39.4 L, MCV 91.4, MCH 32.0, MCHC 35.0, RDW Std Deviation 48.7 H, RDW Coeff of Radha 14.4, Plt Count 133 L, MPV 9.6, Immature Gran % (Auto) 0.900, Neut % (Auto) 88.8 H, Lymph % (Auto) 3.6 L, [place] % (Auto) 6.6, Eos % (Auto) 0.0, Baso % (Auto) 0.1, Absolute Neuts (auto) 14.0 H, Absolute Lymphs (auto) 0.56 L, Nucleated RBC % 0, Differential Comment SCANNED 12/15/22 09:20: Sodium 135 L, Potassium 4.9, Chloride 101, Carbon Dioxide 25.0, Anion Gap 9, BUN 42 H, Creatinine 1.88 H, Estim Creat Clear Calc 27.79, Est GFR (MDRD) Af Amer 44 L, Est GFR (MDRD) Non-Af 36 L, BUN/Creatinine Ratio 22.3 H, Glucose 120 H, Calcium 9.4, Total Bilirubin 2.40 H, AST 60 H, ALT 51, Alkaline Phosphatase 158 H, Troponin I High Sens 43, Total Protein 6.9, Albumin 2.7 L, Globulin 4.2, Albumin/Globulin Ratio 0.6 L 12/15/22 09:20: Lactic Acid 2.0 12/15/22 09:20: B-Natriuretic Peptide 357.7 H Micro: Microbiology 12/15/22 09:15 Nasal Secretion SARS-CoV-2 & FLU Antigen (Rapid) - Final Rhythm Strip Rhythm Strip: Paced Rate: 88 Ectopy: None Radiology Impression Chest X-Ray 12/15/22 08:58 IMPRESSION: Cardiomegaly and CHF. Electronically Signed: Domo Appiah MD at 9:53 EDT , Assessment & Plan Assessment/Plan (1) Generalized weakness: (2) Leukocytosis, unspecified: (3) Acute on chronic diastolic (congestive) heart failure: (4) Hypoxia: (5) Thrombocytopenia: (6) Hyperbilirubinemia: PLAN: Plan Acute on chronic diastolic heart failure -Patient reports about a 10 pound weight gain from his baseline of 205 pounds -Has been compliant with his home dose of Lasix and took metolazone on Wednesday when his symptoms were worsened -Chest x-ray is consistent with pulmonary edema -BNP is elevated at 357.7 -Check echocardiogram -Last echocardiogram done 06/28/2020 which demonstrated normal systolic LV function with an EF of 55% and stage II diastolic dysfunction -IV Lasix 40 mg twice daily -We will consider metolazone in addition depending on diuresis with IV Lasix -Daily weights -Strict I's and O's -Cycle cardiac enzymes -Cardiac diet with 1500 cc fluid restriction and sodium restriction -Lower extremity Leroy wrap's Leukocytosis -No obvious infectious etiology -COVID and flu are negative -Blood cultures were ordered and are pending -UA is not consistent with infection -Respiratory viral panel is pending -Strep pneumo and Legionella antigens are pending -We will hold on empiric antibiotics at this time and await culture results Acute hypoxia -Patient is not oxygen dependent at baseline -Currently requiring 2 L -Wean as able with diuresis -We will check ambulatory pulse ox prior to discharge Hyperbilirubinemia -May be related to passive congestion in the liver with worsening heart failure -Repeat CMP in a.m. Mild thrombocytopenia -Patient's platelet counts have fluctuated previously -We will repeat lab in a.m. Malaise/generalized weakness -May be related to worsening heart failure versus infectious sorts -Heart failure being addressed -Infectious etiology work-up is pending -PT/OT consultation Paroxysmal atrial fibrillation -Continue rivaroxaban -Patient with previous AV [place] ablation on 05/07/2022 -On no rate limiting medications -Monitor on telemetry History of third-degree heart block --Pacemaker placement on 02/20/2022 CAD/HTN/HPL -Continue high intensity dose statin -Continue aspirin -Patient is currently not requiring any antihypertensives to maintain blood pressure -IV Lasix with oral Lasix on hold -Status post coronary artery bypass surgery left internal mammary artery to the left anterior descending artery, saphenous vein graft to circumflex artery, and to the right coronary artery CKD stage IIIb -Renal function is currently slightly lower than his baseline of 1.9-2.3 -Appears to be volume overloaded -Current creatinine is 1.88 -Diuresis as above -Avoid nephrotoxins as able -Monitor BMP daily while on IV Lasix -Follows with Dr. Franny Lui as an outpatient for nephrology-no current need for nephrology consultation Prostate enlargement -Patient does not take any chronic medications -If any urinary difficulty could consider addition of Flomax Secondary pulmonary artery hypertension -Who group 2/3 -Continue diuresis as above DVT prophylaxis -Continue full dose rivaroxaban CODE STATUS -Full code as per discussion at the time of admission Charges/Coding Visit Charges Inpatient E&M: 43764 Init Hosp L3
[2022-12-15] MEDS: Furosemide 40 MG/4 ML Vial IV ×2 (11:09→19:01)
--- NOTE | 2022-12-15 11:54 | ECHOCS_ITS ---
Reason For Study: CHF Procedure This was a 2D Doppler, Color Flow transthoracic echocardiogram. The study was technically difficult. Contrast injection was performed. Exam performed portable in patient room. Left Ventricle Normal LV size. The estimated ejection fraction is 55 %. Unable to assess diastolic dysfunction. No regional wall motion abnormalities noted. Right Ventricle Normal RV size. Normal systolic function. Atria The left atrium is mildly enlarged. Normal right atrium. No doppler evidence for ASD. Mitral Valve There is moderate mitral annular calcification. There is no mitral valve stenosis. Trivial mitral valve insufficiency. Tricuspid Valve There is no tricuspid stenosis. Trivial tricuspid valve insufficiency. Pulmonary artery systolic pressure is 55 mmHg. Aortic Valve Aortic sclerosis, no stenosis. Trisinus/trileaflet aortic valve. There is no aortic stenosis. Trivial aortic valve insufficiency. Pulmonic Valve There is no pulmonic valvular stenosis. Trivial pulmonic valve insufficiency. Great Vessels Normal aortic root. Pericardium/Pleural No pericardial effusion. Medication Diluted definity 2ml given slow IV push to enhance endocardial definition. MMode/2D Measurements & Calculations LVIDd: 3.9 cm IVSd: 1.3 cm Ao root diam: 3.6 cm LVIDs: 2.7 cm LVPWd: 1.5 cm FS: 31.9 % LAV(MOD-sp4): 117.1 ml LA A4 area: 29.4 cm2 LA dimension(2D): 4.7 cm RA A4 area: 22.7 cm2 Time Measurements MV dec time: 0.20 sec Doppler Measurements & Calculations MV E max anoop: 136.0 cm/sec Lat Peak E' Anoop: 10.2 cm/sec MV V2 max: 137.5 cm/sec MV A max anoop: 81.7 cm/sec E/E' lat: 13.4 MV max P.6 mmHg MV E/A: 1.7 MV V2 mean: 75.3 cm/sec MV mean P.9 mmHg MV V2 VTI: 31.6 cm MV dec slope: 697.8 cm/sec2 Ao V2 max: 110.8 cm/sec LV V1 max: 86.1 cm/sec Ao max P.9 mmHg LV V1 max P.0 mmHg Ao V2 mean: 98.1 cm/sec LV V1 mean P.6 mmHg Ao mean P.0 mmHg LV V1 mean: 58.5 cm/sec Ao V2 VTI: 17.0 cm LV V1 VTI: 18.2 cm AV (velocity ratio): 1.1 MR max anoop: 10.6 cm/sec PA V2 max: 124.6 cm/sec TR max anoop: 353.1 cm/sec MR max P.05 mmHg PA V2 mean: 71.9 cm/sec TR max P.9 mmHg ECHO/Echo Complete W/ Contrast Interpretation Summary The estimated ejection fraction is 55 %. Unable to assess diastolic dysfunction. The left atrium is mildly enlarged. Trivial mitral valve insufficiency. Trivial tricuspid valve insufficiency. Trivial aortic valve insufficiency. Ordering Physician: Tanya Lui Referring Physician: MD Marcia Enrique Performed By: Debbie Herman RCS
[2022-12-15 13:12] LABS: Troponin-I HS 42 pg/mL (3.0-78.0)
[2022-12-15 13:24] LABS: Reflex Lactate? Y
[2022-12-15 15:59] LABS: Lactic Acid 1.4 mmol/L (0.4-1.9)
[2022-12-15 16:13] LABS: Troponin-I HS 41 pg/mL (3.0-78.0)
[2022-12-15] MEDS: Rivaroxaban 15 MG Tablet PO (19:01)
[2022-12-15] MEDS: 0.9% Saline Lock 10 ML Syringe IV (19:06)
[2022-12-15] MEDS: Atorvastatin Calcium 10 MG Tablet PO (20:46)
--- NOTE | 2022-12-15 22:49 | PCM.PN.BLA ---
Progress Note Blood cultures from aerobic and anaerobic bottle: Gram-positive cocci. Leukocytosis noted. Rounding MDs note reviewed. Per rounding MD notes empiric antibiotics is on hold while culture results is pending. With culture results as above will empirically start patient on cefazolin. CBC is being monitored.
[2022-12-16] VITALS (8 sets, daily range): BP systolic 112–123; BP diastolic 58–64; PULSE 70–89; RESP 15–18; TEMP 36.6–36.8; O2SAT 94–98; BMI 32.4
[2022-12-16] MEDS: MELATONIN 3 MG TABLET PO ×3 (00:23→21:23)
[2022-12-16] MEDS: Cefazolin 1 GM/50 ML BAG IV (00:23)
[2022-12-16] MEDS: 0.9% Saline Lock 10 ML Syringe IV ×4 (00:34→21:22)
[2022-12-16 04:51] LABS: Absolute Lymphocyte Count 0.94 X10^3/uL (0.83-4.51); Absolute Neutrophil Count 12.9 X10^3/uL (2.0-7.7); Basophil# 0.03 X10^3/uL; Basophil% 0.2 % (0-1); Eosinophil# 0.01 X10^3/uL; Eosinophils% 0.1 % (0-5); Hematocrit 37.2 % (40-54); Hemoglobin 12.3 g/dL (13.0-16.5); Lymphocyte # 0.94 X10^3/ul (0.83-4.51); Lymphocyte % 6.2 % (19-41); Mean Corp Hgb Conc 33.1 g/dL (32-36); Mean Corpuscular Hgb 30.9 pg (27.0-32.0); Mean Corpuscular Volume 93.5 fL (80-94); Mean Platelet Vol. 9.9 fl (6.2-12.0); Monocyte# 0.98 X10^3/uL; Monocyte% 6.5 % (0-10); NRBC Flagged by Analyzer 0 % (0-5); Neutrophil # 12.94 X10^3/uL (2.7-7.7); Neutrophil % 85.9 % (47-70); Platelet Count 142 K/mm3 (150-450); RBC Distribution Width CV 14.5 % (11.6-14.6); RBC Distribution Width SD 49.5 fl (35.1-43.9); Red Blood Count 3.98 M/mm3 (4.6-6.2); White Blood Count 15.1 K/mm3 (4.4-11.0)
[2022-12-16 05:25] LABS: ALB/GLOB Ratio 0.6 RATIO (0.9-2.4); AST(SGOT) 22 U/L (15-37); Alanine Aminotransfer ALT/SGPT 43 U/L (16-61); Albumin, Serum 2.4 g/dL (3.2-5.0); Alkaline Phosphatase 149 U/L (45-117); Anion Gap 9 (5-15); BUN 48 mg/dL (7-18); BUN/Creat Ratio 25.9 RATIO (10-20); Calcium,Total 8.9 mg/dL (8.5-10.1); Chloride 100 mmol/L (98-107); Creatinine, Serum 1.85 mg/dL (0.70-1.30); EST Glomerular Filtration Rate 37 mL/min (>60); Est Glom Filt Rate - Afr Amer 45 mL/min (>60); Estimated Creatinine Clearance 28.24 ml/min; Globulin 3.8 g/dL (2.2-4.2); Glucose 137 mg/dL (74-106); Magnesium 2.5 mg/dL (1.6-2.6); Phosphorus 4.2 mg/dL (2.5-4.9); Potassium 2.8 mmol/L (3.5-5.1); Protein, Total 6.2 g/dL (6.4-8.2); Sodium Level 138 mmol/L (136-145)
[2022-12-16] MEDS: Potassium Chloride Oral Tablet 20 MEQ 40 MEQ PO ×3 (06:49→17:34)
[2022-12-16] MEDS: Furosemide 40 MG/4 ML Vial IV ×2 (08:39→17:36)
[2022-12-16] MEDS: Aspirin E.C. 81 MG Tablet PO (08:39)
[2022-12-16] MEDS: Ensure Plus High Protein 120 ML LIQUID PO ×3 (08:39→17:38)
--- NOTE | 2022-12-16 11:55 | CASEMGMT ---
RN RAHUL Face to Face with patient for initial transition planning/care coordination assessment. RN CM introduced self and role at [facility]. Patient sitting in chair, alert and oriented. Patient willing to participate in assessment and is able to answer all questions appropriately. Care providers, pharmacy, and demographics verified. Patient wishes to discharge home, will monitor progress with therapy. Patient states he has no further needs or concerns at this time. CM to follow for discharge planning needs that may arise. PCP: Marcia Specialists: Jeb skull chopper Preferred Pharmacy: [facility] Insurance: [employer] Prescription Benefit: yes Living Will/HPOA: yes, son Dayday Arevalo LNOK: , son, daughter Living Arrangements: Patient lives with in a single story home with 2 steps and grab bar to enter the home. Patient states he is independent at home. Transportation: self, , daughter DME/HHC: Patient states he has walker and grab bars at home. No previous HHC or SNF. Will monitor for HHC and home oxygen at discharge. Disposition Plan: Patient to discharge home with family support and follow-up plans in place. Monitor progress with therapy. Ashly LOZANO, RN, CM
[2022-12-16] MEDS: Albuterol 2.5 MG/3 ML VIAL.NEB. INHALATION (12:09)
--- NOTE | 2022-12-16 15:43 | CHAPLAIN ---
Type of Pastoral Visit _x__ Initial Visit ___ Follow-up Visit ___ On-call Visit ___ General Patient Visit ___ Spiritual Assessment ___ Family Conference ___ Bereavement ___ Rapid Response ___ Code Blue ___ Other (describe below) Pastoral Care Referral From _x__ Patient ___ Family ___ Nurse ___ Physician ___ Manufacturing Technology Professor ___ Oral And Maxillofacial Pathologist ___ Other (describe below) Sacrament/Intervention _x__ Active listening ___ Anointing ___ Mormonism ___ Bereavement ___ Communion ___ Sabina exploration ___ _x__ Life review ___ Prayer ___ Reconciliation ___ Sacrament of Sick _x__ Supportive presence ___ Wedding ___ Other (describe below) Pastoral Comments patient describes his experience and need for admission; pt admits to being weak and needs help for improvement; pt welcomes someone to talk with about his life; pt is not anabaptist and so declines spiritual intervention; pt is given time, presence, and acknowledgement of support availability as desired
--- NOTE | 2022-12-16 15:47 | PCM.PN.HOSP ---
Reason for Visit Reason for Visit: Fatigue/shortness of breath Subjective Subjective No issues overnight. Patient states he feels that his breathing may be a little bit better today. Still pretty tired. Family at bedside and we discussed the diagnosis of bacteremia. Family does state he gets bruises that open up intermittently so I suspect is bacteremic source is cutaneous. Objective Data Objective Data Vital Signs: Vital Signs Temp Pulse Resp BP Pulse Ox O2 Del Method O2 Flow Rate 97.8 F 89 16 112/63 97 Nasal Cannula 2 12/16/22 08:27 12/16/22 12:09 12/16/22 12:09 12/16/22 08:27 12/16/22 09:55 12/16/22 08:30 12/16/22 14:09 Oxygen Flow Rate (L/min) 2 Oxygen Delivery Method Nasal Cannula Weight: 96.9 kg Body Mass Index (BMI) 32.4 Intake & Output: Intake and Output for Last 24 Hours 12/14/22 12/15/22 12/16/22 23:59 23:59 23:59 Intake Total 875 / 875 Output Total 250 / 250 700 / 700 Balance -250 / -250 175 / 175 Lab / Micro Data Result Diagrams: 12/16/22 04:04 12/16/22 04:04 Labs: Laboratory Results - last 24 hr 12/15/22 15:07: Troponin I High Sens 41 12/15/22 15:07: Lactic Acid 1.4 12/16/22 04:04: WBC 15.1 H, RBC 3.98 L, Hgb 12.3 L, Hct 37.2 L, MCV 93.5, MCH 30.9, MCHC 33.1 D, RDW Std Deviation 49.5 H, RDW Coeff of Radha 14.5, Plt Count 142 L, MPV 9.9, Immature Gran % (Auto) 1.100 H, Neut % (Auto) 85.9 H, Lymph % (Auto) 6.2 L, [place] % (Auto) 6.5, Eos % (Auto) 0.1, Baso % (Auto) 0.2, Absolute Neuts (auto) 12.9 H, Absolute Lymphs (auto) 0.94, Nucleated RBC % 0 12/16/22 04:04: Sodium 138, Potassium 2.8 L, Chloride 100, Carbon Dioxide 29.0, Anion Gap 9, BUN 48 H, Creatinine 1.85 H, Estim Creat Clear Calc 28.24, Est GFR (MDRD) Af Amer 45 L, Est GFR (MDRD) Non-Af 37 L, BUN/Creatinine Ratio 25.9 H, Glucose 137 H, Calcium 8.9, Phosphorus 4.2, Magnesium 2.5, Total Bilirubin 1.30 H, AST 22, ALT 43, Alkaline Phosphatase 149 H, Total Protein 6.2 L, Albumin 2.4 L, Globulin 3.8, Albumin/Globulin Ratio 0.6 L Micro: Microbiology 12/15/22 10:05 Blood Culture (Wb) - Right Forearm Blood Culture - Preliminary Beta streptococcus 12/15/22 09:20 Blood Culture (Wb) - Right Hand Bacteria Detection (PCR) - Final Streptococcus agalactiae (B) 12/15/22 09:20 Blood Culture (Wb) - Right Hand Blood Culture - Preliminary Streptococcus agalactiae (B) 12/15/22 15:36 Urine Catheter - Catheter Streptococcus pneumoniae Antigen (M - Final 12/15/22 15:36 Urine Catheter - Catheter Legionella Antigen - Final 12/15/22 13:20 Mucosa - Nose Respiratory Panel (PCR) - Final 12/15/22 09:15 Nasal Secretion SARS-CoV-2 & FLU Antigen (Rapid) - Final Radiography Diagnostic Testing: Radiology Impression Echocardiogram 12/15/22 11:54 Interpretation Summary The estimated ejection fraction is 55 %. Unable to assess diastolic dysfunction. The left atrium is mildly enlarged. Trivial mitral valve insufficiency. Trivial tricuspid valve insufficiency. Trivial aortic valve insufficiency. Ordering Physician: Tanya Lui Referring Physician: MD Marcia Enrique Performed By: Debbie Herman RCS Rhythm Strip Rhythm Strip: Paced Rate: 88 Ectopy: None Physical Exam Const alert, oriented x3, no apparent distress and well nourished Constitutional Narrative: Elderly, obese, white male, sitting up in chair, family at bedside, patient appears a bit less fatigued today however not at baseline yet per family, nontoxic General Appearance: cooperative HEENT normocephalic, head/scalp atraumatic and moist oral mucous membranes HEENT Narrative: Dentition is poor, Mallampati 2, no thrush Resp normal respiratory effort, no retractions, no use of accessory muscles and No clear to auscultation bilaterally Resp Narrative: Few crackles at bases bilaterally but improved, tachypnea improved, no signs of respiratory distress Auscultation: rales; Negative for rhonchi or wheezes Cardio regular rate, regular rhythm, S1 normal heart sound, S2 normal heart sound, no murmurs, no rub, no gallops and no clicks GI normal to inspection, nondistended, normoactive bowel sounds and soft to palpation Extremity Extremity Narrative: 2+ bilateral lower extremity pitting edema, pedal pulses are 1+, no clubbing or cyanosis Neuro oriented x3, moves all extremities and no focal motor deficits Neuro Narrative: Generalized weakness, sensation appears to be intact Speech: speech normal Assessment & Plan Assessment/Plan (1) Generalized weakness: (2) Leukocytosis, unspecified: (3) Acute on chronic diastolic (congestive) heart failure: (4) Hypoxia: (5) Thrombocytopenia: (6) Hyperbilirubinemia: (7) Streptococcal bacteremia: (8) Hypokalemia: PLAN: Plan Acute on chronic diastolic heart failure -Patient reports about a 10 pound weight gain from his baseline of 205 pounds -Has been compliant with his home dose of Lasix and took metolazone on Wednesday when his symptoms were worsened -Chest x-ray is consistent with pulmonary edema -BNP is elevated at 357.7 -Echocardiogram shows an EF of 55% with mild left atrial enlargement and trivial mitral valve, tricuspid valve, aortic valve insufficiency -Last echocardiogram done 06/28/2020 which demonstrated normal systolic LV function with an EF of 55% and stage II diastolic dysfunction -Continue IV Lasix 40 mg twice daily -Add metolazone 5 mg daily for now and reevaluate fluid status in a.m. -Daily weights -Strict I's and O's -Cycle cardiac enzymes -Cardiac diet with 1500 cc fluid restriction and sodium restriction -Lower extremity Leroy wrap's Strep agalactiae bacteremia -2 of 2 cultures positive for group B strep -Suspect cutaneous seeding -COVID and flu are negative -Discontinue Ancef and transition to ceftriaxone to avoid predominantly renally cleared drug -Await sensitivities -Will transition to orals at discharge -UA is not consistent with infection -Respiratory viral panel was negative -Strep pneumo and Legionella antigens were unremarkable Acute hypoxia -Patient is not oxygen dependent at baseline -Currently requiring 2 L -Wean as able -Wean as able with diuresis -We will check ambulatory pulse ox prior to discharge Hypokalemia -40 mill equivalents p.o. potassium dosed x2 doses today -Magnesium level is normal -Repeat lab in a.m. Hyperbilirubinemia -Resolved and now back to baseline which is chronic elevation -Baseline 1.1-1.3 Mild thrombocytopenia -Patient's platelet counts have fluctuated previously -We will repeat lab in a.m. Malaise/generalized weakness -May be related to worsening heart failure versus infectious sorts -Heart failure being addressed -Infectious etiology work-up is pending -PT/OT consultation Paroxysmal atrial fibrillation -Continue rivaroxaban -Patient with previous AV [place] ablation on 05/07/2022 -On no rate limiting medications -Monitor on telemetry History of third-degree heart block --Pacemaker placement on 02/20/2022 CAD/HTN/HPL -Continue high intensity dose statin -Continue aspirin -Patient is currently not requiring any antihypertensives to maintain blood pressure -IV Lasix with oral Lasix on hold -Status post coronary artery bypass surgery left internal mammary artery to the left anterior descending artery, saphenous vein graft to circumflex artery, and to the right coronary artery CKD stage IIIb -Renal function is currently slightly lower than his baseline of 1.9-2.3 -Appears to be volume overloaded -Current creatinine is 1.88 -Diuresis as above -Avoid nephrotoxins as able -Monitor BMP daily while on IV Lasix -Follows with Dr. Franny Lui as an outpatient for nephrology-no current need for nephrology consultation Prostate enlargement -Patient does not take any chronic medications -If any urinary difficulty could consider addition of Flomax Secondary pulmonary artery hypertension -Who group 2/3 -Continue diuresis as above DVT prophylaxis -Continue full dose rivaroxaban CODE STATUS -Full code as per discussion at the time of admission Charges/Coding Visit Charges Inpatient E&M: 36101 Subs Hosp L2
[2022-12-16] MEDS: metOLazone 5 MG Tablet PO (17:34)
[2022-12-16] MEDS: Rivaroxaban 15 MG Tablet PO (17:36)
[2022-12-16] MEDS: Acetaminophen 325 MG Tablet 650 MG PO (21:23)
[2022-12-16] MEDS: Senna/Docusate Sodium 1 Tablet 2 TABLET PO (21:23)
[2022-12-16] MEDS: Atorvastatin Calcium 10 MG Tablet PO (21:23)
[2022-12-17] VITALS (11 sets, daily range): BP systolic 118–139; BP diastolic 61–73; PULSE 68–87; RESP 16–20; TEMP 36.2–36.7; O2SAT 89–100; BMI 32.5
[2022-12-17 04:56] LABS: Absolute Lymphocyte Count 1.34 X10^3/uL (0.83-4.51); Absolute Neutrophil Count 9.5 X10^3/uL (2.0-7.7); Basophil# 0.06 X10^3/uL; Basophil% 0.5 % (0-1); Eosinophil# 0.07 X10^3/uL; Eosinophils% 0.6 % (0-5); Hematocrit 39.4 % (40-54); Hemoglobin 12.7 g/dL (13.0-16.5); Lymphocyte # 1.34 X10^3/ul (0.83-4.51); Mean Corp Hgb Conc 32.2 g/dL (32-36); Mean Corpuscular Hgb 30.5 pg (27.0-32.0); Mean Corpuscular Volume 94.7 fL (80-94); Monocyte% 6.6 % (0-10); NRBC Flagged by Analyzer 0 % (0-5); Neutrophil # 9.53 X10^3/uL (2.7-7.7); Neutrophil % 78.6 % (47-70); Platelet Count 178 K/mm3 (150-450); RBC Distribution Width CV 14.6 % (11.6-14.6); RBC Distribution Width SD 51.2 fl (35.1-43.9); Red Blood Count 4.16 M/mm3 (4.6-6.2); White Blood Count 12.1 K/mm3 (4.4-11.0)
[2022-12-17 05:23] LABS: Anion Gap 7 (5-15); BUN 59 mg/dL (7-18); BUN/Creat Ratio 31.7 RATIO (10-20); Calcium,Total 8.9 mg/dL (8.5-10.1); Chloride 100 mmol/L (98-107); Creatinine, Serum 1.86 mg/dL (0.70-1.30); EST Glomerular Filtration Rate 37 mL/min (>60); Est Glom Filt Rate - Afr Amer 45 mL/min (>60); Estimated Creatinine Clearance 28.09 ml/min; Glucose 203 mg/dL (74-106); Magnesium 2.5 mg/dL (1.6-2.6); Phosphorus 3.8 mg/dL (2.5-4.9); Sodium Level 140 mmol/L (136-145)
[2022-12-17] MEDS: Aspirin E.C. 81 MG Tablet PO (10:08)
[2022-12-17] MEDS: Potassium Chloride Oral Tablet 20 MEQ 40 MEQ PO ×3 (10:08→17:41)
[2022-12-17] MEDS: Furosemide 40 MG/4 ML Vial IV ×2 (10:08→17:41)
[2022-12-17] MEDS: metOLazone 5 MG Tablet PO (10:08)
[2022-12-17] MEDS: Ensure Plus High Protein 120 ML LIQUID PO ×3 (10:12→17:43)
--- NOTE | 2022-12-17 10:31 | CASEMGMT ---
Discharge Planning Patient is agreeable to HH services. Patient Choice list provided. Radhika Menard
--- NOTE | 2022-12-17 11:16 | PN.HOSP_ITS ---
Reason for Visit Reason for Visit: Fatigue/shortness of breath Subjective Subjective Patient states he feels that his breathing is pretty much back to his baseline. Fatigue is overall better but still present. Patient is agreeable to home health at discharge. No overnight issues. Objective Data Objective Data Vital Signs: Vital Signs Temp Pulse Resp BP Pulse Ox O2 Del Method O2 Flow Rate 97.7 F L 70 16 134/69 H 95 Room Air 2 12/17/22 10:04 12/17/22 10:04 12/17/22 10:04 12/17/22 10:04 12/17/22 10:04 12/17/22 10:04 12/17/22 05:16 Oxygen Flow Rate (L/min) 2 Oxygen Delivery Method Room Air Weight: 97.1 kg Body Mass Index (BMI) 32.5 Intake & Output: Intake and Output for Last 24 Hours 12/15/22 12/16/22 12/17/22 23:59 23:59 23:59 Intake Total 1550 / 1790 530 / 530 Output Total 250 / 250 1200 / 1900 1999 Balance -250 / -250 350 / -110 -1470 / -1470 Lab / Micro Data Result Diagrams: 12/17/22 04:37 12/17/22 04:37 Labs: Laboratory Results - last 24 hr 12/17/22 04:37: WBC 12.1 H, RBC 4.16 L, Hgb 12.7 L, Hct 39.4 L, MCV 94.7 H, MCH 30.5, MCHC 32.2, RDW Std Deviation 51.2 H, RDW Coeff of Radha 14.6, Plt Count 178, MPV 10.0, Immature Gran % (Auto) 2.700 H, Neut % (Auto) 78.6 H, Lymph % (Auto) 11.0 L, [place] % (Auto) 6.6, Eos % (Auto) 0.6, Baso % (Auto) 0.5, Absolute Neuts (auto) 9.5 H, Absolute Lymphs (auto) 1.34, Nucleated RBC % 0 12/17/22 04:37: Sodium 140, Potassium 3.0 L, Chloride 100, Carbon Dioxide 33.0 H , Anion Gap 7, BUN 59 H, Creatinine 1.86 H, Estim Creat Clear Calc 28.09, Est GFR (MDRD) Af Amer 45 L, Est GFR (MDRD) Non-Af 37 L, BUN/Creatinine Ratio 31.7 H , Glucose 203 H, Calcium 8.9, Phosphorus 3.8, Magnesium 2.5 Micro: Microbiology 12/15/22 10:05 Blood Culture (Wb) - Right Forearm Blood Culture - Final Streptococcus agalactiae (B) 12/15/22 09:20 Blood Culture (Wb) - Right Hand Bacteria Detection (PCR) - Final Streptococcus agalactiae (B) 12/15/22 09:20 Blood Culture (Wb) - Right Hand Blood Culture - Final Streptococcus agalactiae (B) 12/15/22 15:36 Urine Catheter - Catheter Streptococcus pneumoniae Antigen (M - Final 12/15/22 15:36 Urine Catheter - Catheter Legionella Antigen - Final 12/15/22 13:20 Mucosa - Nose Respiratory Panel (PCR) - Final 12/15/22 09:15 Nasal Secretion SARS-CoV-2 & FLU Antigen (Rapid) - Final Rhythm Strip Rhythm Strip: Paced Rate: 88 Ectopy: None Physical Exam Const alert, oriented x3, no apparent distress and well nourished Constitutional Narrative: Elderly, obese, white male, sitting up in a chair at the bedside, appears comfortable and nontoxic, patient reports he is at baseline General Appearance: cooperative HEENT normocephalic, head/scalp atraumatic and moist oral mucous membranes HEENT Narrative: Dentition is poor, Mallampati is 2, no thrush Resp normal respiratory effort, no retractions, no use of accessory muscles and clear to auscultation bilaterally Resp Narrative: Diminished but clear Auscultation: Negative for rales, rhonchi or wheezes Cardio regular rate, regular rhythm, S1 normal heart sound, S2 normal heart sound, no murmurs, no rub, no gallops and no clicks GI normal to inspection, nondistended, normoactive bowel sounds and soft to palpation Extremity Extremity Narrative: 1+ bilateral lower extremity pitting edema, pedal pulses are 1+, no clubbing or cyanosis Skin no wounds, skin turgor normal, no jaundice, no petechiae and no mottling Skin Narrative: Few scattered ecchymosis Neuro oriented x3, moves all extremities and no focal motor deficits Speech: speech normal Psych affect normal Psych Narrative: Extremely pleasant, interacts appropriately Assessment & Plan Assessment/Plan (1) Generalized weakness: (2) Leukocytosis, unspecified: (3) Acute on chronic diastolic (congestive) heart failure: (4) Hypoxia: (5) Thrombocytopenia: (6) Hyperbilirubinemia: (7) Streptococcal bacteremia: (8) Hypokalemia: PLAN: Plan Acute on chronic diastolic heart failure -Patient reports about a 10 pound weight gain from his baseline of 205 pounds -Has been compliant with his home dose of Lasix and took metolazone on Wednesday when his symptoms were worsened -Chest x-ray is consistent with pulmonary edema -BNP is elevated at 357.7 -Echocardiogram shows an EF of 55% with mild left atrial enlargement and trivial mitral valve, tricuspid valve, aortic valve insufficiency -Last echocardiogram done 06/28/2020 which demonstrated normal systolic LV function with an EF of 55% and stage II diastolic dysfunction -Continue IV Lasix 40 mg twice daily and will plan to transition to oral Lasix -Continue metolazone 5 mg daily for now and reevaluate fluid status in a.m.--> will likely have patient take metolazone 2.5 mg 3 times with the of discharge -Daily weights -Strict I's and O's -Cycle cardiac enzymes -Cardiac diet with 1500 cc fluid restriction and sodium restriction -Lower extremity Leroy wrap's Strep agalactiae bacteremia -2 of 2 cultures positive for group B strep -Suspect cutaneous seeding -Continue ceftriaxone and will transition to oral Keflex to complete antibiotic treatment at the time of discharge day 2 of 10 -UA is not consistent with infection -Echo was done and does not show any new valvular abnormalities, no murmur is present -Repeat blood cultures for clearance given that this is a gram-positive organism today and will monitor after discharge Acute hypoxia -Resolved -Patient is 95% on room air -We will check ambulatory pulse ox prior to discharge Hypokalemia - improved but still low we will repeat potassium orally 40 mill equivalents twice daily -Repeat lab in a.m. Hyperbilirubinemia -Resolved and now back to baseline which is chronic elevation -Baseline 1.1-1.3 Mild thrombocytopenia -Resolved Malaise/generalized weakness -Resolving -Suspect related to decompensated heart failure and bacteremia -PT/OT recommending discharge home with home health Paroxysmal atrial fibrillation -Continue rivaroxaban -Patient with previous AV [place] ablation on 05/07/2022 -On no rate limiting medications -Monitor on telemetry History of third-degree heart block --Pacemaker placement on 02/20/2022 CAD/HTN/HPL -Continue high intensity dose statin -Continue aspirin -Patient is currently not requiring any antihypertensives to maintain blood pressure -IV Lasix with oral Lasix on hold -Status post coronary artery bypass surgery left internal mammary artery to the left anterior descending artery, saphenous vein graft to circumflex artery, and to the right coronary artery CKD stage IIIb -Renal function is currently slightly lower than his baseline of 1.9-2.3 -Appears to be volume overloaded -Current creatinine is 1.86 -Diuresis as above -Avoid nephrotoxins as able -Monitor BMP daily while on IV diuretics and metolazone daily -Follows with Dr. Franny Lui as an outpatient for nephrology-no current need for nephrology consultation Prostate enlargement -Patient does not take any chronic medications -If any urinary difficulty could consider addition of Flomax Secondary pulmonary artery hypertension -Who group 2/3 -Continue diuresis as above DVT prophylaxis -Continue full dose rivaroxaban CODE STATUS -Full code as per discussion at the time of admission Charges/Coding Visit Charges Inpatient E&M: 15721 Subs Hosp L2
--- NOTE | 2022-12-17 11:53 | CASEMGMT ---
Therapy notified [facility] that patient should go to a long term facility for rehab. [facility] asked d/c senior planning analyst Radhika to print a list and SW will talk with patient and his . Delisa SHARPE
--- NOTE | 2022-12-17 12:40 | CASEMGMT ---
Discharge Planning Patient Choice list for SNF created. Give to SW. Radhika Menard
--- NOTE | 2022-12-17 13:26 | CASEMGMT ---
SW met with patient and his niece was also present. SW introduced self and role at [facility]. Patient was okay with SW talking in front of SW. SW explained therapy's recommendations and he was aware. Patient was concerned with being able to manage therapy every day. SW provided a list of [place] [facility] facility providers including quality and resource use data and consistent with patient?s preferred geographic region, medical needs, and insurance network were provided from the [employer] Guide. Patient said his will not be back until 430. SW let patient know SW will leave the list in patient's room and he and his can talk about it. SW will check in with him tomorrow. Delisa Burnham WOMEN'S STUDIES PROFESSOR BILINGUAL EXECUTIVE ASSISTANT
--- NOTE | 2022-12-17 16:07 | CM.UR ---
Discharge Planning Patient and his had several questions regarding TCU and their insurance. Message left with SW to assist. Radhika Menard
[2022-12-17] MEDS: Rivaroxaban 15 MG Tablet PO (17:41)
[2022-12-17] MEDS: Atorvastatin Calcium 10 MG Tablet PO (21:34)
[2022-12-17] MEDS: MELATONIN 3 MG TABLET PO (21:34)
[2022-12-17] MEDS: 0.9% Saline Lock 10 ML Syringe IV (21:34)
[2022-12-17] MEDS: Acetaminophen 325 MG Tablet 650 MG PO (21:34)
[2022-12-18 03:45] VITALS: BP 129/74; PULSE 70; RESP 18; TEMP 36.4; O2SAT 98
[2022-12-18] MEDS: Senna/Docusate Sodium 1 Tablet 2 TABLET PO (06:56)
[2022-12-18 07:19] VITALS: O2SAT 90; O2SAT 95
[2022-12-18 07:38] LABS: Hematocrit 43.4 % (40-54); Hemoglobin 14.4 g/dL (13.0-16.5); Mean Corp Hgb Conc 33.2 g/dL (32-36); Mean Corpuscular Volume 93.5 fL (80-94); Mean Platelet Vol. 9.6 fl (6.2-12.0); POSITIVE COUNT YES; POSITIVE MORPHOLOGY YES; Platelet Count 217 K/mm3 (150-450); RBC Distribution Width CV 14.6 % (11.6-14.6); RBC Distribution Width SD 50.6 fl (35.1-43.9); Red Blood Count 4.64 M/mm3 (4.6-6.2)
[2022-12-18 07:42] LABS: Differential Indicated MANUAL DIFF
[2022-12-18 08:02] LABS: Anion Gap 7 (5-15); BUN 58 mg/dL (7-18); BUN/Creat Ratio 35.4 RATIO (10-20); Calcium,Total 9.9 mg/dL (8.5-10.1); Chloride 99 mmol/L (98-107); Creatinine, Serum 1.64 mg/dL (0.70-1.30); EST Glomerular Filtration Rate 43 mL/min (>60); Est Glom Filt Rate - Afr Amer 52 mL/min (>60); Estimated Creatinine Clearance 31.86 ml/min; Glucose 151 mg/dL (74-106); Potassium 3.7 mmol/L (3.5-5.1); Sodium Level 140 mmol/L (136-145)
[2022-12-18 08:36] VITALS: O2SAT 90
[2022-12-18 09:12] LABS: Lymphocyte 13 % (19-41); Metamyelocyte 4 % (0-1); Monocyte 3 % (0-10); Myelocyte 5 % (0-0); Neutrophil-Band 1 % (0-5); Neutrophil-Segmented 74 % (47-70); Total Cells Counted 100 (MANUAL DIFF)
[2022-12-18 09:15] LABS: Platelet Estimate ADEQUATE (ADEQ); Red Cell Morphology NORM C+C NORMAL (NORM C&C)
[2022-12-18 09:18] LABS: Absolute Lymphocyte Count 1.43 X10^3/uL (0.83-4.51); Absolute Neutrophil Count 8.3 X10^3/uL (2.0-7.7)
[2022-12-18] MEDS: Ensure Plus High Protein 120 ML LIQUID PO (09:24)
[2022-12-18] MEDS: Furosemide 40 MG/4 ML Vial IV (09:25)
[2022-12-18] MEDS: metOLazone 5 MG Tablet PO (09:25)
[2022-12-18] MEDS: Aspirin E.C. 81 MG Tablet PO (09:25)
[2022-12-18 09:47] VITALS: BP 149/80; PULSE 73; RESP 16; TEMP 36.2; O2SAT 95
--- NOTE | 2022-12-18 09:50 | CASEMGMT ---
SW met with patient's , daughter, sister in law and brother per their request. They want patient to go to TCU. SW explained that TCU does not take patient's insurance. Patient's daughter stated that Medicare pays for days 1-20 at 100% as long as the patient has 3 midnights. SW explained that patient has [facility] who manages his Medicare. [facility] follows Medicare guidelines, but unlike straight Medicare they have facilities that are in and out of network and TCU is out of network. Patient's plan is also and HMO which means there are no out of network benefits. Family asked about private pay. SW explained TCU is $660 per day and they require $13,680 up front which covers 21 days. They asked SW to check to see if TCU has availability. SW told them SW will check and let them know. SW made referral to [facility] via [facility]. SW let patient, his , and daughter know that TCU is reviewing the referral and as soon as [facility] hears for sure SW will let them know. Delisa Burnham NETWORK COORDINATOR ANNEMARIE
--- NOTE | 2022-12-18 10:27 | CASEMGMT ---
[facility] let patient and his family know that [facility]CU can take patient when he is ready. Plan: d/c to [facility]. Delisa SHARPE
--- NOTE | 2022-12-18 11:45 | PCM.TXEXTCAR ---
Diet Diet Order/Speech Therapy: 12/17/22 18:00 Diet: Cardiac - Heart Healthy Dietary Modifications:: Sodium Restricted Is pt able to select menu?: Yes Fluid restriction:: 1500 mL Routine Orders/Code Status O2 Frequency: PRN Keep PO Greater than or Equal to (%): 90 Routine Lab Work: CBC (in 1 week) and BMP (in 1 week) Code Status: Full Code Suggestions for Active Care Change Position every (hours): 2 Therapies Weight Bearing: Full weight bearing Physical Therapy: Eval and Treat Occupational Therapy: Eval and Treat Problem/Diagnosis (1) Generalized weakness: Status: Acute Code(s): R53.1 - Weakness (2) Leukocytosis, unspecified: Status: Acute Code(s): D72.829 - Elevated white blood cell count, unspecified (3) Acute on chronic diastolic (congestive) heart failure: Status: Chronic Code(s): I50.33 - Acute on chronic diastolic (congestive) heart failure (4) Hypoxia: Status: Acute Code(s): R09.02 - Hypoxemia (5) Thrombocytopenia: Status: Acute Code(s): D69.6 - Thrombocytopenia, unspecified (6) Hyperbilirubinemia: Status: Acute Code(s): E80.6 - Other disorders of bilirubin metabolism (7) Streptococcal bacteremia: Status: Acute Code(s): R78.81 - Bacteremia; B95.5 - Unspecified streptococcus as the cause of diseases classified elsewhere (8) Hypokalemia: Status: Acute Code(s): E87.6 - Hypokalemia Allergies/Procedures Done in Hospital Allergies spironolactone Adverse Reaction (Verified 12/15/22 08:40) Elevated Potassium Elevated Potassium Procedures: 2-D Echocardiogram, EKG and - (Chest x-ray) Type of Care/Length of Stay Estimated LOS: Convalescent Care Less Than 30 days Type of Care Needed: Skilled Rehab Potential: Good Prognosis: Good Additional Orders/Day of Discharge Day of Discharge: 12/18/22 Dietary and Speech Recommendations Dietitian Recommendations/Changes: continue cardiac diet w/ 1500mL fluid restriction as indicated. ONS if PO intake at meals fails. Discharge Plan Admission Admit Date/Time: 12/15/22 10:25 Attending Provider: Tanya Lui Primary Care Provider: Enrique Kennedy Discharge Orders/Prescriptions Prescriptions: No Action Adult 50 Plus Probiotic 4 billion cell capsule 4,000 mmu cells PO DAILY Rx Instructions: administer with a meal [id number] 1 EACH tablet 1 tab PO DAILY Label Comments: MULTIVITAMIN potassium chloride 10 mEq tablet extended release 10 meq PO .prn PRN (Reason: SOB with metolazone) Rx Instructions: only takes with metolazone furosemide 80 mg tablet 80 mg PO DAILY Rx Instructions: current dose is 40 mg a day, sometimes pt needs to increase to 80 mg. metolazone 2.5 mg tablet 2.5 mg PO .COMPLEX PRN (Reason: BP) Rx Instructions: 2.5 mg orally 1-2 times per week PRN; lovastatin 40 mg tablet 40 mg PO QHS Qty: 90 3RF aspirin [Adult Aspirin Regimen] 81 mg tablet,delayed release (DR/EC) 81 mg PO QDAY Qty: 90 3RF rivaroxaban 15 mg tablet 15 mg PO DAILY Qty: 90 3RF Referrals / Follow Up: Enrique Kennedy MD [Primary Care Provider] -
--- NOTE | 2022-12-18 11:48 | PCM.DC.SUM ---
Providers Date of Admission: 12/15/22 Date of Discharge: 12/18/22 Primary Care Physician: Dr. Enrique Kennedy MD Reason For Visit: HYPOXIA/ACUTE CHRONIC DECOMPENSATED DIASTOLIC HF Diagnosis Discharge Diagnosis (1) Generalized weakness: Status: Acute Code(s): R53.1 - Weakness (2) Leukocytosis, unspecified: Status: Acute Code(s): D72.829 - Elevated white blood cell count, unspecified (3) Acute on chronic diastolic (congestive) heart failure: Status: Chronic Code(s): I50.33 - Acute on chronic diastolic (congestive) heart failure (4) Hypoxia: Status: Acute Code(s): R09.02 - Hypoxemia (5) Thrombocytopenia: Status: Acute Code(s): D69.6 - Thrombocytopenia, unspecified (6) Hyperbilirubinemia: Status: Acute Code(s): E80.6 - Other disorders of bilirubin metabolism (7) Streptococcal bacteremia: Status: Acute Code(s): R78.81 - Bacteremia; B95.5 - Unspecified streptococcus as the cause of diseases classified elsewhere (8) Hypokalemia: Status: Acute Code(s): E87.6 - Hypokalemia Medications at Discharge Home Medications otjmbxka-bpd-fthkc acid 0.4 mg-lycopene 300 mcg-lutein 250 mcg tablet 1 tab PO DAILY supplement 05/24/13 lactobacillus combination no.9 4 billion cell capsule (Adult 50 Plus Probiotic) 4,000 mmu cells PO DAILY supplement 12/10/20 potassium chloride 10 mEq tablet,extended release 10 meq PO .prn PRN SOB with metolazone 03/24/21 aspirin 81 mg tablet,delayed release (Adult Aspirin Regimen) 81 mg PO QDAY Antiplatelet, CAD #90 tabs 09/17/22 lovastatin 40 mg tablet 40 mg PO QHS heart disease #90 tabs 09/17/22 rivaroxaban 15 mg tablet 15 mg PO DAILY blood clot prevention #90 tabs 11/20/22 furosemide 80 mg tablet 80 mg PO DAILY fluid retention 12/15/22 cefdinir 300 mg capsule 300 mg PO Q12H #14 caps 12/18/22 food supplemt, lactose-reduced 0.08 gram-1.5 kcal/mL oral liquid (Ensure Plus High Protein) 120 ml PO TIDCM #0 mL 12/18/22 metolazone 2.5 mg tablet See Rx Instructions .Route .COMPLEX BP #14 tabs 12/18/22 Hospital Course Procedures 2-D Echocardiogram, EKG and - (Chest x-ray) Summary of Care Provided Minutes Spent on Discharge: 37 Hospital Course: Mr. Arevalo is an 87-year-old white male who presented to the emergency department at [facility] on 12/15/2022 with worsening edema, fatigue, and shortness of breath. Patient has a known history of chronic diastolic heart failure. The patient has chronic fatigue as well however he had noted worsening fatigue since about Wednesday prior to presentation. He noted that on Wednesday while he was taking a bath he tried to get out of the bathtub and was unable to do so independently. This is abnormal for him. He called his and she tried to help him however they were not able to get him out of the bathtub and family had to come and help. He indicated he is slowly worsening since that point time. He stated he has up about 10 pounds from his baseline weight of 205 pounds. He reported he had been compliant with his home medication and states his appetite has not been all that great either. He takes metolazone as needed and did so on Wednesday for his increased weight. The dose was 2.5 mg. He stated that that did not really help him that much and he decided to come to the emergency department as he was slowly getting worse. Vital signs at presentation showed a temperature of 99.3, blood pressure 147/123, respiratory rate 20, oxygen saturation was initially 95% on room air but he did desat to 89% on room air so was placed on 2 L nasal cannula which improved his oxygen saturations to between 92 and 96%.? CBC shows a leukocytosis with a white count of 15.7 and a left shift with an 88.8% neutrophilia.? Platelet count was 133,000.? Chemistry panel showed mildly low sodium at 135 with an elevated BUN and creatinine at 42 and 1.88 respectively.? These are actually slightly below his baseline values.? His lactic acid was 1.4.? Bilirubin was elevated at 2.4 and AST was 60.? ALT was normal.? BNP was 357.7.? Troponin was 43.? His UA shows some protein and occult blood but no signs of infection.? Chest x-ray shows volume overload with central vascular congestion and an elevated right hemidiaphragm.? EKG showed paced rhythm of ventricular pacing with a rate of 88. He was given a dose of Lasix, cultures were obtained but no antibiotics were initiated at this time as there is no identifiable source currently and request for admission was made. He was maintained on Lasix and was negative approximately 4 L at the time of discharge. His weight was down about 4 kg as well. He stated he was back to his baseline breathing status and felt his swelling was much better. 2 out of 2 bottles positive for Streptococcus agalactiae (group B strep). I suspect a cutaneous source however was not able to find any noted skin infection. He was placed on ceftriaxone for this and clinically improved significantly. His white count resolved by the day of discharge, his thrombocytopenia had resolved and his energy levels improved although he was still having some generalized weakness. He was evaluated by therapy and they recommended ongoing therapy at discharge. Patient really wanted to go home however family is adamant that they wanted him to go to the transitional care unit which I agree with ongoing therapy. He was agreeable to do so and he was able to be discharged in stable condition surgery incisional care unit on 12/18/2022. He will continue antibiotics for another 7 days to complete a total of 10-day course with Omnicef 300 mg twice daily. We maintain him on his home dose of Lasix but I did have him take metolazone twice weekly once on Wednesday and once on . He will need a repeat BMP in 1 week to reassess his renal function as he does have some baseline CKD. He is to follow-up with his primary care physician within the next month and cardiology within the next month as he will be at the transitional care unit for some time. He is to follow-up with his primary supervisor nutritional yeast at his next scheduled appointment as long as his renal function remained stable. Discharge diagnoses: Acute on chronic diastolic heart failure-resolved Strep agalactiae bacteremia Acute hypoxia-resolved Hypokalemia-resolved Acute on chronic hyperbilirubinemia-resolved Thrombocytopenia-resolved Generalized weakness/malaise-improving PAF History of third-degree heart block CAD Hypertension Hyperlipidemia CKD stage IIIb Prostate enlargement Secondary pulmonary hypertension Physical Exam Narrative Patient states she continues to feel well and feels at least at his baseline. Would like to go home however family would like him to get some rehab first. The plan is for private pay at [facility] at this time. Const alert, oriented x3, no apparent distress and well nourished Constitutional Narrative: Elderly, obese, white male, sitting up in a chair at the bedside, appears comfortable and nontoxic, family at bedside General Appearance: cooperative, comfortable, well kempt and well developed Orientation / Consciousness: awake, oriented to person, oriented to place and oriented to time Exam Limitations: no limitations Nutritional Appearance: obese HEENT normocephalic, head/scalp atraumatic and moist oral mucous membranes HEENT Narrative: Dentition is poor, Mallampati is 2-3, no thrush Eyes PERRL, EOMs intact bilaterally and conjunctivae normal Eyes Narrative: No scleral icterus Neck no lymphadenopathy, supple and no carotid bruits Neck Narrative: Positive JVD Resp normal respiratory effort, no retractions, no use of accessory muscles and clear to auscultation bilaterally Resp Narrative: Diminished but clear Auscultation: Negative for rales, rhonchi or wheezes Cardio regular rate, regular rhythm, S1 normal heart sound, S2 normal heart sound, no murmurs, no rub, no gallops and no clicks GI normal to inspection, nondistended, normoactive bowel sounds and soft to palpation Extremity Extremity Narrative: Trace bilateral lower extremity pitting edema, pedal pulses are 1+, no clubbing or cyanosis Skin no wounds, skin turgor normal, no jaundice, no petechiae and no mottling Skin Narrative: Few scattered ecchymosis Neuro oriented x3, CN's II-XII intact bilaterally, moves all extremities and no focal motor deficits Neuro Narrative: Generalized weakness, sensation appears to be intact Speech: speech normal Psych affect normal Psych Narrative: Extremely pleasant, interacts appropriately Weight / BMI Weight Weight: 97.1 kg Body Mass Index (BMI) 32.5 ABG / Lab / Microbiology Data Result Diagrams: 12/18/22 07:00 12/18/22 07:00 Laboratory: Laboratory Results - last 24 hr 12/18/22 07:00: WBC 11.0, RBC 4.64, Hgb 14.4, Hct 43.4, MCV 93.5, MCH 31.0, MCHC 33.2, RDW Std Deviation 50.6 H, RDW Coeff of Radha 14.6, Plt Count 217, MPV 9.6, Neut % (Auto) Not Reportable, Absolute Neuts (auto) 8.3 H, Absolute Lymphs (auto) 1.43, Total Counted 100, Neutrophils % (Manual) 74 H, Band Neutrophils % 1, Lymphocytes % (Manual) 13 L, Monocytes % (Manual) 3, Metamyelocytes % 4 H, Myelocytes % 5 H, Diff Path Review December, Platelet Estimate ADEQUATE, RBC Morphology NORM C+C 12/18/22 07:00: Sodium 140, Potassium 3.7, Chloride 99, Carbon Dioxide 34.0 H, Anion Gap 7, BUN 58 H, Creatinine 1.64 H, Estim Creat Clear Calc 31.86, Est GFR (MDRD) Af Amer 52 L, Est GFR (MDRD) Non-Af 43 L, BUN/Creatinine Ratio 35.4 H, Glucose 151 H, Calcium 9.9 Microbiology: Microbiology 12/15/22 10:05 Blood Culture (Wb) - Right Forearm Blood Culture - Final Streptococcus agalactiae (B) 12/15/22 09:20 Blood Culture (Wb) - Right Hand Bacteria Detection (PCR) - Final Streptococcus agalactiae (B) 12/15/22 09:20 Blood Culture (Wb) - Right Hand Blood Culture - Final Streptococcus agalactiae (B) 12/15/22 15:36 Urine Catheter - Catheter Streptococcus pneumoniae Antigen (M - Final 12/15/22 15:36 Urine Catheter - Catheter Legionella Antigen - Final 12/15/22 13:20 Mucosa - Nose Respiratory Panel (PCR) - Final 12/15/22 09:15 Nasal Secretion SARS-CoV-2 & FLU Antigen (Rapid) - Final D/C Instructions Discharge Diet: Low fat / Low cholesterol, 8 Cup Fluid Restriction and 2000 mg Sodium Diet Discharge Activity: Return to Normal Activity Meaningful Use Info Meaningful Use Diagnoses (Choose all that apply): CHF CHF HILLARY/ARB ordered at discharge?: No Reason HILLARY/ARB not ordered?: Worsening renal function Documented LVEF (%): 55 Discharge Plan Admission Admit Date/Time: 12/15/22 10:25 Primary Reason for Your Visit: Shortness of Breath/Generalized Weakness Attending Provider: Tanya Lui Primary Care Provider: Enrique Kennedy Discharge Orders/Prescriptions Prescriptions: New Ensure Plus High Protein 0.08 gram-1.5 kcal/mL Liquid 120 ml PO TIDCM Qty: 0 0RF cefdinir 300 mg capsule 300 mg PO Q12H Qty: 14 0RF Continued furosemide 80 mg tablet 80 mg PO DAILY Rx Instructions: current dose is 40 mg a day, sometimes pt needs to increase to 80 mg. Changed metolazone 2.5 mg tablet See Rx Instructions .ROUTE .COMPLEX Qty: 14 0RF Rx Instructions: 2.5 mg orally Take Every Wednesday and No Action Adult 50 Plus Probiotic 4 billion cell capsule 4,000 mmu cells PO DAILY Rx Instructions: administer with a meal jnqlphjo-jrj-OB-lycopen-lutein 1 EACH tablet 1 tab PO DAILY Label Comments: MULTIVITAMIN potassium chloride 10 mEq tablet extended release 10 meq PO .prn PRN (Reason: SOB with metolazone) Rx Instructions: only takes with metolazone lovastatin 40 mg tablet 40 mg PO QHS Qty: 90 3RF aspirin [Adult Aspirin Regimen] 81 mg tablet,delayed release (DR/EC) 81 mg PO QDAY Qty: 90 3RF rivaroxaban 15 mg tablet 15 mg PO DAILY Qty: 90 3RF Referrals / Follow Up: Enrique Kennedy MD [Primary Care Provider] - Within 1 Month Elena Garcia PA [Med Staff - Adv Practice Prof] - Within 1 Month (call for appt) Disposition Disposition (needs filled in before D/C Order can be placed): Half-Way Facility Charges/Coding Visit Charges Inpatient E&M: 65247 SNF Disch >30 Min
--- NOTE | 2022-12-18 13:15 | CASEMGMT ---
Addendum entered by Delisa Burnham 12/18/22 13:25: CONCEPCION did talk with patient's daughter and let her know about the answer to her question. Plan: d/c to [facility] TCU Delisa SHARPE Original Note: Patient's daughter asked about the process to get refunded if patient is not in TCU for 21 days. Patient Advocate Norman said he would find out and notify CONCEPCION. CONCEPCION received an email from Norman with the answer to this question. There was no family at [facility] currently. CONCEPCION called patient's daughter Sylvia and left her a voice mail. Delisa SHARPE
[2022-12-21 09:27] LABS: Pathologist Review Reviewed
== END 2022-12-18 13:46 | disposition skilled nursing facility (03) | DRG 291 ==
LOC: ED 10:17 → PCU 10:52
PROVIDERS: Admitting Provider Internal Medicine; Emergency Provider Emergency Medicine; PCP Family Medicine; Visit Provider Internal Medicine
DX: I13.0 Hypertensive heart and chronic kidney disease with heart failure and stage 1 through stage 4 chronic kidney disease, or unspecified chronic kidney disease (principal); I50.33 Acute on chronic diastolic (congestive) heart failure; R78.81 Bacteremia; I27.22 Pulmonary hypertension due to left heart disease; D69.6 Thrombocytopenia, unspecified; I27.29 Other secondary pulmonary hypertension; I08.2 Rheumatic disorders of both aortic and tricuspid valves; I48.0 Paroxysmal atrial fibrillation; N18.32 Chronic kidney disease, stage 3b; E78.5 Hyperlipidemia, unspecified; I25.10 Atherosclerotic heart disease of native coronary artery without angina pectoris; E80.7 Disorder of bilirubin metabolism, unspecified; E80.6 Other disorders of bilirubin metabolism; E87.6 Hypokalemia; D72.829 Elevated white blood cell count, unspecified; Z79.82 Long term (current) use of aspirin; Z95.0 Presence of cardiac pacemaker; R09.02 Hypoxemia; R53.1 Weakness; Z79.02 Long term (current) use of antithrombotics/antiplatelets; B95.1 Streptococcus, group B, as the cause of diseases classified elsewhere; N40.0 Benign prostatic hyperplasia without lower urinary tract symptoms; B95.5 Unspecified streptococcus as the cause of diseases classified elsewhere
CPT/HCPCS: 36415; 71046; 80048; 80053; 81001; 83605; 83735; 83880; 84100; 84484; 85025; 87040; 87077; 87149; 87186; 87426; 87428; 87449; 87633; 93005; 93306; 94640; 94668; 97110; 97116; 97162; 97166; 97530; 97535; 97802; 99252; 99285; Q9957; A4216; C8929; G0463; J0696; J1940

== ENCOUNTER 2022-12-18 13:58 | Inpatient (IN) | payer MEDICARE, SELFPAY ==
[2022-12-18 14:01] VITALS: BP 151/68; PULSE 70; RESP 18; TEMP 36.3; O2SAT 93; BMI 30.7
--- NOTE | 2022-12-18 17:00 | CASEMGMT ---
Social Work Met with patient and to complete initial assessment. Introduced self and role. Verified/updated contacts. Discussed code status. Confirmed DNR-CCA, no intubation; MOLST placed in Dr folder. agreeable to providing copies of advanced directives. Pt is admitted under self-pay. SW to assist with discharge planning when pt/ are ready for DC. See SW assessment and nursing communication for sensitive topics. Phyllis Vela, LASERIST DEPOSITING MACHINE OPERATOR
[2022-12-18] MEDS: Potassium Chloride Oral Tablet 20 MEQ PO (17:48)
[2022-12-18] MEDS: Cefdinir 300 MG Capsule PO (17:48)
[2022-12-18] MEDS: Rivaroxaban 15 MG Tablet PO (17:48)
--- NOTE | 2022-12-18 19:21 | NURSING ---
Pt c/o of constipation. Dr. Yeboah updated N.O. for Lactulose 20gm. Order read back.
[2022-12-18] MEDS: Atorvastatin Calcium 10 MG Tablet PO (20:48)
--- NOTE | 2022-12-18 22:51 | HP.PCM_ITS ---
HPI - General General Date of Admission: 12/18/22 Date of Service: 12/18/22 Chief Complaint: Here for rehabilitation. HPI Narrative 12/15/2022 ROBERTO ALAS, is a 87 Male who presents to [facility] Emergency Department with generalized illness. 12/15/2022 EKG ventricular paced rhythm. Generalized weakness, unable to get out of chair. Unable to get out of tub, family lifted him out. Temperature 99, chronic shortness of breath, mild cough, clear to white phlegm. WBC 15.7, BUN 40, Creatinine 1.88, Urinalysis negative. Chest X-ray consistent with congestive heart failure, peripheral edema, Lasix 40mg IV for congestive heart failure. 12/15/2022 Admit to [facility]. 10 pound weight gain, BNP 357.7. Lasix 40mg iv bid, Metolazone, daily weights, strict I's and O's, for acute on chronic diastolic congestive heart failure. Hold antibiotics, panculture for leukocytosis. Oxygen 2 liters for hypoxia. PT/OT. 12/15/2022 Echo EF 55%. 12/15/2022 Blood culture, 2 bottles, gram possible cocci, Start Cefazolin. 12/16/2022 Breathing better, tired. Bacteremia likely cutaneous. Lasix 40mg iv bid, Add Metolazone 5mg for acute diastolic congestive heart failure. Strep agalactiae bacteremia treated with Ceftriaxone. Wean oxygen as tolerated. KCL 40meq x 2 doses for hypokalemia. 12/17/2022 Breathing baseline, fatigue better. Repeat blood cultures, change Ceftriaxone to Keflex to complete 10 day course for S. Agalactiae bacteremia. Repeat potassium 40meq bid. 12/18/2022 Change Keflex to Omnicef to finish 10 day course of antibiotics. 12/18/2022 Admit to TCU with debility, here for rehabilitation, strengthening, prior to discharge home with . [facility] Medical History Accelerated junctional rhythm (03/23/21) Atherosclerosis of coronary artery of [place] heart without angina pectoris Bacteremia Body mass index (bmi) 32.0-32.9, adult Carotid bruit Cellulitis Chronic diastolic heart failure Complete heart block (02/13/22) Hyperlipidemia Palpitations Paroxysmal atrial fibrillation Prostate enlargement Renal insufficiency Secondary pulmonary arterial hypertension Shortness of breath Home Medications zzukzbyv-kvz-wlngr acid 0.4 mg-lycopene 300 mcg-lutein 250 mcg tablet 1 tab PO DAILY supplement 05/24/13 [History Last Taken 12/14/22] lactobacillus combination no.9 4 billion cell capsule (Adult 50 Plus Probiotic) 4,000 mmu cells PO DAILY supplement 12/10/20 [History Last Taken 12/14/22] potassium chloride 10 mEq tablet,extended release 20 meq PO BID supplement 03/24/21 [History Last Taken 12/14/22] aspirin 81 mg tablet,delayed release (Adult Aspirin Regimen) 81 mg PO QDAY Antiplatelet, CAD #90 tabs 09/17/22 [Rx Last Taken 12/14/22] lovastatin 40 mg tablet 40 mg PO QHS heart disease #90 tabs 09/17/22 [Rx Last Taken 12/14/22] rivaroxaban 15 mg tablet 15 mg PO DAILY blood clot prevention #90 tabs 11/20/22 [Rx Last Taken 12/14/22] furosemide 80 mg tablet 80 mg PO DAILY fluid retention 12/15/22 [History Last Taken 12/14/22] cefdinir 300 mg capsule 300 mg PO Q12H antibiotic 12/18/22 [History Last Taken Unknown] food supplemt, lactose-reduced 0.08 gram-1.5 kcal/mL oral liquid (Ensure Plus High Protein) 120 ml PO TIDCM supplement 12/18/22 [History Last Taken Unknown] metolazone 2.5 mg tablet See Rx Instructions .Route .COMPLEX BP #14 tabs 12/18/22 [Rx Last Taken 12/14/22] Allergy/AdvReac Type Severity Reaction Status Date / Time spironolactone AdvReac Elevated Verified 12/15/22 08:40 Potassium Family History Mother CAD (coronary artery disease) Brother CAD (coronary artery disease) Surgical History H/O coronary artery bypass surgery (09/20/97) History of appendectomy History of cardioversion (08/25/21) History of left heart catheterization (12/12/14) 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 Natanael Yeboah MD) household members: spouse Smoking Status: Never smoker alcohol intake: never substance use type: does not use caffeine: Yes Type: coffee Number of servings: 1 what type of physical activity do you participate in: none seatbelt use: always do you feel safe at home: Yes ROS Constitutional Constitutional: Denies chills, fever(s) or weight gain ENT HEENT: Denies headache(s), nasal congestion or nasal discharge Cardiovascular Cardiovascular: Denies chest pain or palpitations Respiratory/Chest Respiratory/Chest: Denies cough, excessive phlegm production or shortness of breath with exertion Gastrointestinal Gastrointestinal: Denies abdominal pain, nausea or vomiting Genitourinary Genitourinary: Denies dysuria Musculoskeletal Musculoskeletal: Denies joint pain or joint swelling Integumentary Integumentary: Denies rash or wounds Neurologic Neurologic: Denies focal weakness, numbness or tingling Psychiatric Psychiatric: Denies anxiety, auditory hallucinations, depression, homicidal ideation or suicidal ideation Vital Signs Vital Signs Vital Signs: 12/18/22 14:01 12/18/22 15:19 Temperature 97.3 F L Temperature Source Temporal Pulse Rate 70 Pulse Rhythm Regular Pulse Strength Normal (2+) Respiratory Rate 18 Respiratory Effort Normal Non-Labored Respiratory Depth Normal Respiratory Pattern Normal Blood Pressure 151/68 H Blood Pressure Mean 95 Blood Pressure Source Monitor Blood Pressure Position Sitting Blood Pressure Location Left Arm Pulse Ox 93 Oxygen Delivery Method Room Air Room Air Weight Weight: 91.762 kg Body Mass Index (BMI) 30.7 Physical Exam Const alert General Appearance: cooperative HEENT normocephalic Eyes PERRL and EOMs intact bilaterally Neck supple, no JVD and no carotid bruits Resp normal respiratory effort, normal air movement and clear to auscultation bilaterally Auscultation: crackles right and localized (Basilar.) Cardio regular rate and regular rhythm GI normal to inspection, nondistended, normoactive bowel sounds, non-tender and non-distended Extremity normal capillary refill General Extremity: Negative for edema Skin no rashes or lesions noted General Skin Exam: no breakdown Psych affect normal Appearance: appropriate Assessment & Plan Assessment/Plan (1) Debility: (2) Acute on chronic diastolic (congestive) heart failure: (3) Hypokalemia: (4) Streptococcal bacteremia: (5) Hypoxia: (6) Atrial fibrillation: (7) Coronary artery disease: (8) Hyperlipidemia: (9) Chronic kidney disease, stage 3b: PLAN: Plan 87 year old male with below past medical history hospitalized for acute hypoxia secondary to acute on chronic diastolic congestive heart failure, complicated by strep bacteremia, admitted to TCU with debility, here for rehabilitation, strengthening, prior to discharge home with . * Debility - PT/OT. * Pain - Tylenol 1000mg q6h prn pain (1-10). * Bowel - Miralax 17gm daily, senna/colace 1 tablet bid, Lactulose 20gm po x 1 dose. * Adult immunization - Administer pneumonia vaccine, covid19 vaccine, flu vaccine as appropriate. * DVT prophylaxis - Already on Xarelto. * Coronary artery disease - Aspirin 81mg daily. * Hyperlipidemia - Atorvastatin 10mg qhs. * Strep bacteremia - Cefdinir 300mg q12h thru 12/25/2022. * Chronic diastolic congestive heart failure - Furosemide 80mg daily, Metolazone 2.5mg 2 days/week. * Nutrition - MVI daily. * Hypokalemia - KCL 20meq bidcm. * Atrial fibrillation - Xarelto 15mg daily.
[2022-12-18] MEDS: Lactulose 20 GM/30 ML UDC PO (22:52)
[2022-12-19] MEDS: Acetaminophen 500 MG Tablet 1000 MG PO (01:46)
[2022-12-19] MEDS: Senna/Docusate Sodium 1 Tablet PO ×2 (06:27→17:31)
[2022-12-19] MEDS: Polyethylene Glycol 3350 17 GM PACKET PO (06:27)
[2022-12-19] MEDS: Furosemide 80 MG Tablet PO (06:27)
[2022-12-19] MEDS: Cefdinir 300 MG Capsule PO ×2 (06:27→17:31)
[2022-12-19 06:53] LABS: Absolute Lymphocyte Count 1.95 X10^3/uL (0.83-4.51); Absolute Neutrophil Count 9.1 X10^3/uL (2.0-7.7); Basophil# 0.02 X10^3/uL; Basophil% 0.2 % (0-1); Eosinophil# 0.07 X10^3/uL; Eosinophils% 0.6 % (0-5); Hematocrit 42.8 % (40-54); Lymphocyte # 1.95 X10^3/ul (0.83-4.51); Lymphocyte % 15.7 % (19-41); Mean Corp Hgb Conc 32.7 g/dL (32-36); Mean Corpuscular Volume 94.9 fL (80-94); Mean Platelet Vol. 9.8 fl (6.2-12.0); Monocyte# 0.72 X10^3/uL; Monocyte% 5.8 % (0-10); NRBC Flagged by Analyzer 0 % (0-5); Neutrophil # 9.09 X10^3/uL (2.7-7.7); Neutrophil % 73.1 % (47-70); POSITIVE MORPHOLOGY YES; Platelet Count 255 K/mm3 (150-450); RBC Distribution Width CV 14.5 % (11.6-14.6); RBC Distribution Width SD 50.4 fl (35.1-43.9); Red Blood Count 4.51 M/mm3 (4.6-6.2); White Blood Count 12.4 K/mm3 (4.4-11.0)
[2022-12-19 06:55] LABS: Differential Indicated SCAN CRITERIA MET
[2022-12-19 07:18] LABS: Differential Comment SCANNED
[2022-12-19 07:34] LABS: Anion Gap 7 (5-15); BUN 63 mg/dL (7-18); BUN/Creat Ratio 36.6 RATIO (10-20); Chloride 95 mmol/L (98-107); Creatinine, Serum 1.72 mg/dL (0.70-1.30); EST Glomerular Filtration Rate 40 mL/min (>60); Est Glom Filt Rate - Afr Amer 49 mL/min (>60); Estimated Creatinine Clearance 30.38 ml/min; Glucose 216 mg/dL (74-106); Potassium 3.6 mmol/L (3.5-5.1); Sodium Level 137 mmol/L (136-145)
[2022-12-19] MEDS: Aspirin E.C. 81 MG Tablet PO (09:18)
[2022-12-19] MEDS: Potassium Chloride Oral Tablet 20 MEQ PO ×2 (09:18→17:31)
[2022-12-19] MEDS: Multivitamins,Ther W-Minerals Tablet 1 TABLET PO (09:18)
[2022-12-19] MEDS: Tuberculin,Purif.prot.deriv. 50 TU/ML Vial 0.1 ML ID (11:00)
[2022-12-19 12:57] VITALS: BMI 30.7
[2022-12-19 14:49] VITALS: BP 137/74; PULSE 69; RESP 16; TEMP 35.9; O2SAT 94
[2022-12-19] MEDS: 0.9% Saline Lock 10 ML Syringe IV (17:31)
[2022-12-19] MEDS: Rivaroxaban 15 MG Tablet PO (17:31)
[2022-12-19] MEDS: Atorvastatin Calcium 10 MG Tablet PO (20:45)
[2022-12-19] MEDS: MELATONIN 10 MG TABLET PO (20:45)
[2022-12-20] MEDS: Cefdinir 300 MG Capsule PO ×2 (05:05→17:17)
[2022-12-20] MEDS: Polyethylene Glycol 3350 17 GM PACKET PO (05:05)
[2022-12-20] MEDS: Furosemide 80 MG Tablet PO (05:05)
[2022-12-20] MEDS: Senna/Docusate Sodium 1 Tablet PO ×2 (05:05→17:18)
[2022-12-20 05:15] VITALS: BMI 30.4
[2022-12-20] MEDS: Multivitamins,Ther W-Minerals Tablet 1 TABLET PO (09:00)
[2022-12-20] MEDS: Aspirin E.C. 81 MG Tablet PO (09:00)
[2022-12-20] MEDS: Potassium Chloride Oral Tablet 20 MEQ PO ×2 (09:00→17:17)
[2022-12-20 09:05] VITALS: PULSE 74; RESP 18; O2SAT 93
--- NOTE | 2022-12-20 14:14 | NURSING ---
Dr Yeboah notified of pt urgency and frequency small amts. new order for flomax. pt states that he wears pull ups at home and has the same problem. has not seen a urologist but states he sees a telephone instrument supervisor Dr Lui. Explained the difference. pt verbalized understanding. pt and updated.
[2022-12-20] MEDS: Tamsulosin HCl 0.4 MG Capsule PO (14:29)
[2022-12-20] MEDS: Menthol/Lanolin/Calamine/Znox 113 GM Tube 1 APPLIC TOPICAL ×2 (14:30→22:25)
[2022-12-20 15:43] VITALS: BP 115/62; PULSE 91; RESP 18; TEMP 36.1; O2SAT 95
[2022-12-20] MEDS: Rivaroxaban 15 MG Tablet PO (17:17)
[2022-12-20] MEDS: 0.9% Saline Lock 10 ML Syringe IV (17:17)
[2022-12-20] MEDS: MELATONIN 10 MG TABLET PO (20:18)
[2022-12-20] MEDS: Atorvastatin Calcium 10 MG Tablet PO (20:18)
--- NOTE | 2022-12-20 21:21 | NURSING ---
Paged Dr. Yeboah w/ immediate return phone call. Updated pt appears to have thrush and c/o an intermittent dry cough that is not acute- had cough at home. SpO2 94% on room air. New orders received for Nystatin swish and swallow 5 ml po 4x/daily x 10 days and Robitussin DM 10 ml po q6hr PRN. Will continue to monitor.
--- NOTE | 2022-12-20 21:40 | NURSING ---
Pt calls requesting to go to the bathroom to void. Went to the bathroom within the last 30 minutes w/ DIGITAL MARKETING STRATEGIST. Bladder scan for 80 ml. Pt denies any c/o. Will attempt to toilet later. Will continue to monitor.
[2022-12-20] MEDS: guaiFENesin Dm 10 ML UDC PO (22:23)
[2022-12-20] MEDS: NYSTATIN 500,000 UNIT/5 ML UDC 500000 UNIT PO (22:24)
--- NOTE | 2022-12-21 02:45 | NURSING ---
Pt calls to use the bathroom. Last toileted approximately 45 minutes ago. Bladder scan for 94ml. Denies any discomfort. Will not toilet at this time and continue to monitor.
[2022-12-21 05:21] VITALS: BMI 30.2
[2022-12-21] MEDS: Menthol/Lanolin/Calamine/Znox 113 GM Tube 1 APPLIC TOPICAL ×3 (05:40→21:02)
[2022-12-21] MEDS: NYSTATIN 500,000 UNIT/5 ML UDC 500000 UNIT PO ×4 (05:40→21:02)
[2022-12-21] MEDS: Polyethylene Glycol 3350 17 GM PACKET PO (05:42)
[2022-12-21] MEDS: Senna/Docusate Sodium 1 Tablet PO ×2 (05:43→16:51)
[2022-12-21] MEDS: Cefdinir 300 MG Capsule PO ×2 (05:43→16:51)
--- NOTE | 2022-12-21 05:47 | NURSING ---
Zaroxolyn and Lasix held d/t low BP in both arms. Refer to vital signs. Pt denies any c/o dizziness or lightheadedness. Will report to oncoming nurse and continue to monitor.
[2022-12-21 05:48] VITALS: BP 86/51; PULSE 73
[2022-12-21 05:49] VITALS: BP 90/43; PULSE 70
[2022-12-21 07:58] VITALS: BP 122/66; PULSE 85
[2022-12-21] MEDS: Aspirin E.C. 81 MG Tablet PO (08:01)
[2022-12-21] MEDS: Furosemide 80 MG Tablet PO (08:01)
[2022-12-21] MEDS: Metolazone 2.5 MG Tablet PO (08:01)
[2022-12-21] MEDS: Potassium Chloride Oral Tablet 20 MEQ PO ×2 (08:02→16:51)
[2022-12-21] MEDS: Multivitamins,Ther W-Minerals Tablet 1 TABLET PO (08:02)
--- NOTE | 2022-12-21 11:22 | NS ---
Res has been ordering small portions. Food dislikes: liver and onions. Provided copy of daily specials/first choice menu w/ instructions on how to order.
--- NOTE | 2022-12-21 12:50 | NURSING ---
Rock Dust Sprayer Note; Activity Asset: Loly Patel is independent in his choice of daily activities. his will visit daily along w/family during the week. He prefers to be called Leonard. Leonard enjoys working on [employer] puzzles and will watch tv. He did state he welcomes visits from the industrial gas fitter and therapy dog when available. He is not interested in group activities at this time, will continue to do social visit and encourage small group activities for social well-being.
[2022-12-21 15:03] VITALS: BP 130/71; PULSE 70; RESP 15; TEMP 36.1; O2SAT 90; O2SAT 92
--- NOTE | 2022-12-21 16:21 | PCM.PN.DRR ---
TCU RX Drug Regimen Review Subjective: TCU Admission. 87 YOM presented to the ER with generalized illness. Hospitalized for acute hypoxia secondary to acute on chronic diastolic congestive heart failure, complicated by strep bacteremia. Admitted to TCU with debility for strengthening and rehabilitation. Objective: Allergies spironolactone Adverse Reaction (Verified 12/15/22 08:40) Elevated Potassium Elevated Potassium Current Medications Generic Name Dose Route Start Last Admin Trade Name Freq PRN Reason Stop Dose Admin Acetaminophen 1,000 mg 12/18/22 23:07 12/19/22 01:46 Acetaminophen 500 Mg Tablet PO 1,000 mg Q6H PRN PRN Administration Pain Score 1-10 Aspirin 81 mg 12/19/22 08:00 12/21/22 08:01 Aspirin E.C. 81 Mg Tablet PO 81 mg DAILYCM FRANDY Administration Atorvastatin Calcium 10 mg 12/18/22 22:00 12/20/22 20:18 Atorvastatin Calcium 10 Mg Tablet PO 10 mg QHS FRANDY Administration Calamine/Phenol 1 applic 12/20/22 14:00 12/21/22 13:41 Menthol/Lanolin/Calamine/Znox 113 Gm Tube TOPICAL 1 applic TID FRANDY Administration Protocol Cefdinir 300 mg 12/18/22 18:00 12/21/22 05:43 Cefdinir 300 Mg Capsule PO 12/25/22 06:01 300 mg Q12H FRANDY Administration Furosemide 80 mg 12/19/22 06:00 12/21/22 08:01 Furosemide 80 Mg Tablet PO 80 mg DAILY FRANDY Administration Guaifenesin 10 ml 12/20/22 21:15 12/20/22 22:23 Guaifenesin Dm 10 Ml Udc PO 10 ml Q6H PRN PRN Administration COUGH Melatonin 10 mg 12/19/22 22:00 12/20/22 20:18 Melatonin 10 Mg Tablet PO 10 mg QHS FRANDY Administration Metolazone 2.5 mg 12/21/22 06:00 12/21/22 08:01 Metolazone 2.5 Mg Tablet PO 2.5 mg MoTh@0600 FRANDY Administration Multivitamins/Minerals 1 tablet 12/19/22 08:00 12/21/22 08:02 Multivitamins,Ther W-Minerals Tablet PO 1 tablet DAILYCM FRANDY Administration Nystatin 500,000 unit 12/20/22 22:00 12/21/22 11:37 Nystatin 500,000 Unit/5 Ml Udc PO 12/30/22 22:01 500,000 unit 4X/DAY FRANDY Administration Polyethylene Glycol 17 gm 12/19/22 06:00 12/21/22 05:42 Polyethylene Glycol 3350 17 Gm Packet PO 17 gm DAILY FRANDY Administration Potassium Chloride 20 meq 12/18/22 17:00 12/21/22 08:02 Potassium Chloride Oral Tablet 20 Meq PO 20 meq BIDCM FRANDY Administration Rivaroxaban 15 mg 12/18/22 17:00 12/20/22 17:17 Rivaroxaban 15 Mg Tablet PO 15 mg DINNER FRANDY Administration Senna/Docusate Sodium 1 tablet 12/19/22 06:00 12/21/22 05:43 Senna/Docusate Sodium 1 Tablet PO 1 tablet BID FRANDY Administration Sodium Chloride 10 - 40 ml 12/18/22 14:49 12/20/22 17:17 0.9% Saline Lock 10 Ml Syringe IV 10 ml UD PRN Administration SALINE FLUSH Tamsulosin HCl 0.4 mg 12/20/22 15:00 12/20/22 14:29 Tamsulosin Hcl 0.4 Mg Capsule PO 0.4 mg DAILY@1730 FRANDY Administration Tuberculin PPD 0.1 ml 12/26/22 10:00 Tuberculin,Purif.Prot.Deriv. 50 Tu/Ml Vial ID 12/26/22 10:01 X1 ONE Problem List (Last Reviewed 12/18/22 @ 22:[address] Natanael Yeboah MD) Chronic kidney disease, stage 3b (Acute) Hyperlipidemia (Acute) Coronary artery disease (Acute) Atrial fibrillation (Acute) Debility (Acute) Hypokalemia (Acute) Streptococcal bacteremia (Acute) Hypoxia (Acute) Acute on chronic diastolic (congestive) heart failure (Chronic) Vital Signs Temp Pulse Resp BP Pulse Ox O2 Del Method 97.0 F L 70 15 130/71 H 92 Room Air 12/21/22 15:03 12/21/22 15:03 12/21/22 15:03 12/21/22 15:03 12/21/22 15:03 12/21/22 15:03 Oxygen Delivery Method Room Air Weight: 90.31 kg Body Mass Index (BMI) 30.2 Sodium 137 mmol/L (136-145) 12/19/22 06:35 Potassium 3.6 mmol/L (3.5-5.1) 12/19/22 06:35 Chloride 95 mmol/L (98-107) L 12/19/22 06:35 Carbon Dioxide 35.0 mmol/L (21.0-32.0) H 12/19/22 06:35 Anion Gap 7 (5-15) 12/19/22 06:35 BUN 63 mg/dL (7-18) H 12/19/22 06:35 Creatinine 1.72 mg/dL (0.70-1.30) H 12/19/22 06:35 Est GFR (MDRD) Af Amer 49 mL/min (>60) L 12/19/22 06:35 Est GFR (MDRD) Non-Af 40 mL/min (>60) L 12/19/22 06:35 BUN/Creatinine Ratio 36.6 RATIO (10-20) H 12/19/22 06:35 Glucose 216 mg/dL (74-106) H 12/19/22 06:35 Assessment/Plan: 1. Pain: acetaminophen 1000mg PO Q6H PRN pain 1-10. Resident has had 1 dose for a pain score of 1 for generalized pain. Please continue to monitor for increased pain and PRN usage. 2. Bowel: Miralax 17gm PO daily, senna/docusate 1T PO BID. Please continue to monitor for constipation. Last documented bowel movement 12/21. 3. Strep bacteremia: cefdinir 300mg PO Q12 thru 12/25/22. Please continue to monitor for S/S of infection, diarrhea and renal function. 4. CAD: aspirin 81mg PO daily. Please continue to monitor for S/S of bleeding and hemoglobin (last 14g/dL). 5. CHF: furosemide 80mg PO daily and metolazone 2.5mg PO MoTh. Please continue to monitor for S/S of swelling, potassium (last 3.6mmol/L) and renal function. 6. Atrial fibrillation: rivaroxaban 15mg PO daily. Please continue to monitor for S/S of bleeding/stroke and hemoglobin. 7. Hyperlipidemia: atorvastatin 10mg PO QHS. Please continue to monitor lipid panel (last 08/20/22), LFT (last 12/16/22) and muscle pain. 8. Hypokalemia: potassium chloride 20mEq PO BIDCM. Please continue to monitor potassium. 9. Nutrition: multivitamin with minerals 1T PO DAILYCM. Please continue to monitor. 10. Thrush (per nursing note): nystatin 500,000units PO 4x/day thru 12/30/22. Please continue to monitor for improvement in thrush. 11. Urinary urgency/frequency (per nursing note): tamsulosin 0.4mg PO daily. Please continue to monitor BP (last 130/71). 12. Cough: guaifenesin DM 10mL PO Q6H PRN cough. Resident has had 1 dose. Please continue to monitor for cough and PRN usage. Assessment/Plan for indications treated with psychotropic medications: None Medical chart and medication regimen reviewed. The following medication irregularities or issues were identified: 1. Melatonin 10mg PO QHS. No clear indication documented. Please add the indication. Thanks. Date of Note:: 12/21/22
[2022-12-21] MEDS: Tamsulosin HCl 0.4 MG Capsule PO (16:51)
[2022-12-21] MEDS: Rivaroxaban 15 MG Tablet PO (16:51)
[2022-12-21] MEDS: Atorvastatin Calcium 10 MG Tablet PO (21:02)
[2022-12-21] MEDS: MELATONIN 10 MG TABLET PO (21:02)
[2022-12-21 21:05] VITALS: PULSE 74; RESP 18; O2SAT 95
[2022-12-22] MEDS: Polyethylene Glycol 3350 17 GM PACKET PO (04:33)
[2022-12-22] MEDS: Furosemide 80 MG Tablet PO (04:34)
[2022-12-22] MEDS: NYSTATIN 500,000 UNIT/5 ML UDC 500000 UNIT PO ×4 (04:34→22:57)
[2022-12-22] MEDS: Cefdinir 300 MG Capsule PO ×2 (04:34→17:26)
[2022-12-22] MEDS: Senna/Docusate Sodium 1 Tablet PO ×2 (04:34→17:29)
[2022-12-22] MEDS: Menthol/Lanolin/Calamine/Znox 113 GM Tube 1 APPLIC TOPICAL ×3 (04:35→22:58)
[2022-12-22 04:41] VITALS: BP 117/62; PULSE 74
[2022-12-22] MEDS: Aspirin E.C. 81 MG Tablet PO (08:06)
[2022-12-22] MEDS: Potassium Chloride Oral Tablet 20 MEQ PO ×2 (08:06→17:26)
[2022-12-22] MEDS: Multivitamins,Ther W-Minerals Tablet 1 TABLET PO (08:06)
[2022-12-22 15:20] VITALS: BP 110/62; PULSE 70; RESP 14; TEMP 36.8; O2SAT 93
[2022-12-22] MEDS: Rivaroxaban 15 MG Tablet PO (17:26)
[2022-12-22] MEDS: Tamsulosin HCl 0.4 MG Capsule PO (17:27)
[2022-12-22] MEDS: Atorvastatin Calcium 10 MG Tablet PO (22:57)
[2022-12-22] MEDS: MELATONIN 10 MG TABLET PO (22:57)
[2022-12-22 23:00] VITALS: BP 86/42; PULSE 78; RESP 16; TEMP 36.4; O2SAT 96
--- NOTE | 2022-12-22 23:00 | NURSING ---
Addendum entered by Corinne Garnett 12/23/22 09:12: Dr. Yeboah updated of fall and low BPs. Physician ordered fluid bolus and scheduled med changes made. updated by phone this morning as well. Original Note: Pt was woken up for hs meds, stated he needed to void, assisted pt to the edge of the bed, stated he was a bit dizzy, sat and rested for a bit then was ready to stand and ambulate w the walker to the restroom. Pt got half way to the restroom when he stated he felt weak, this rn grabbed the wheelchair and but it behind him as he continued to walk to the restroom, right outside the restroom door he started to lean forward to the right, this rn tried to grab him and pull him back into the wheelchair but he went down to the floor on his right side. bp 86/42, 78, 16. 96%, 97.5. no injuries noted, pt was inc of urine, lifted and placed into the wheelchair and then back into bed and changed.
[2022-12-23 03:00] VITALS: BP 92/68; PULSE 78; RESP 16; O2SAT 95
[2022-12-23 06:00] VITALS: BMI 30.2
[2022-12-23] MEDS: Menthol/Lanolin/Calamine/Znox 113 GM Tube 1 APPLIC TOPICAL ×3 (06:59→20:34)
[2022-12-23] MEDS: Polyethylene Glycol 3350 17 GM PACKET PO (06:59)
[2022-12-23] MEDS: Senna/Docusate Sodium 1 Tablet PO ×2 (07:00→17:31)
[2022-12-23] MEDS: Cefdinir 300 MG Capsule PO ×2 (07:00→17:31)
[2022-12-23] MEDS: Furosemide 80 MG Tablet PO (07:00)
[2022-12-23] MEDS: NYSTATIN 500,000 UNIT/5 ML UDC 500000 UNIT PO ×4 (07:00→20:34)
[2022-12-23] MEDS: Potassium Chloride Oral Tablet 20 MEQ PO ×2 (07:54→17:30)
[2022-12-23] MEDS: Aspirin E.C. 81 MG Tablet PO (07:54)
[2022-12-23] MEDS: Multivitamins,Ther W-Minerals Tablet 1 TABLET PO (07:54)
[2022-12-23] MEDS: 0.9% Saline Lock 10 ML Syringe IV (09:58)
--- NOTE | 2022-12-23 10:43 | CASEMGMT ---
Social Work IDT met with patient and multiple family members for care plan meeting. Discussed patient's progress in PT/OT/SN. Pt is self-pay but coordinator did submit for insurance retro-auth. Will continue to follow. SW to assist with DC planning needs. Pt would like HHC at [place]. Will continue to follow. Phyllis Vela, ROBERTA DONNELLYW
[2022-12-23 11:51] VITALS: BP 102/66; PULSE 70
[2022-12-23 14:43] VITALS: BP 114/62; PULSE 70; RESP 16; TEMP 36.3; O2SAT 98
[2022-12-23] MEDS: Rivaroxaban 15 MG Tablet PO (17:31)
[2022-12-23] MEDS: Tamsulosin HCl 0.4 MG Capsule PO (17:31)
[2022-12-23] MEDS: MELATONIN 10 MG TABLET PO (20:33)
[2022-12-23] MEDS: Atorvastatin Calcium 10 MG Tablet PO (20:33)
[2022-12-23 20:39] VITALS: BP 116/70; PULSE 71
[2022-12-24 06:49] LABS: Anion Gap 8 (5-15); BUN 46 mg/dL (7-18); BUN/Creat Ratio 28.2 RATIO (10-20); Calcium,Total 9.2 mg/dL (8.5-10.1); Chloride 97 mmol/L (98-107); Creatinine, Serum 1.63 mg/dL (0.70-1.30); EST Glomerular Filtration Rate 43 mL/min (>60); Est Glom Filt Rate - Afr Amer 52 mL/min (>60); Estimated Creatinine Clearance 32.06 ml/min; Glucose 130 mg/dL (74-106); Potassium 3.4 mmol/L (3.5-5.1); Sodium Level 136 mmol/L (136-145)
[2022-12-24] MEDS: Furosemide 40 MG Tablet PO (07:00)
[2022-12-24] MEDS: Senna/Docusate Sodium 1 Tablet PO ×2 (07:00→16:56)
[2022-12-24] MEDS: Polyethylene Glycol 3350 17 GM PACKET PO (07:00)
[2022-12-24] MEDS: NYSTATIN 500,000 UNIT/5 ML UDC 500000 UNIT PO ×4 (07:00→20:06)
[2022-12-24] MEDS: Cefdinir 300 MG Capsule PO ×2 (07:00→16:56)
[2022-12-24 07:03] VITALS: BP 126/75; PULSE 69
[2022-12-24] MEDS: Aspirin E.C. 81 MG Tablet PO (07:51)
[2022-12-24] MEDS: Potassium Chloride Oral Tablet 20 MEQ PO ×3 (07:52→16:55)
[2022-12-24] MEDS: Multivitamins,Ther W-Minerals Tablet 1 TABLET PO (07:53)
--- NOTE | 2022-12-24 10:48 | MDS.RN ---
Pain interview for MDS tamia 12/25/22 completed.
[2022-12-24] MEDS: Menthol/Lanolin/Calamine/Znox 113 GM Tube 1 APPLIC TOPICAL ×3 (13:07→20:07)
--- NOTE | 2022-12-24 13:25 | ST.MBS ---
Modified Barium Swallow - Patient Information Study Date: 12/24/22 Study Time: 12:30 Direct Billable Minutes: 120 Total Minutes procedure & reportin Diagnosis: DEBILITY (R53.81), CHF (I50.33) Referring Physician: Natanael Yeboah Chi Reason for Referral: Objectively assess swallow function, risk for aspiration, and determine recommendations for least restrictive diet textures and compensatory strategies to improve safety of swallow. Medical History: Jorge Arevalo is a 87 Male who presents to [facility] ED on 12/15/22 with generalized illness. Chronic SOB, mild cough, clear to white phlegm. Chest X-ray consistent with congestive heart failure, peripheral edema, Lasix 40mg IV for congestive heart failure. Admit to TCU on 12/18/22 with debility, here for rehabilitation, strengthening, prior to discharge home with . Speech therapy initially consulted d/t swallowing difficulty. During Bedside Swallow Evaluation, patient showing overt s/s of penetration/aspiration warranting instrumental of swallow function. Current Diet Ordered: Regular textures / Thin liquids Dentition: WNL, Natural Teeth Mental Status: WNL Respiratory Status: Oxygenating on Room Air - Penetration-Aspiration Scale Penetration-Aspiration Scale: OBJECTIVE ASSESSMENT OF SWALLOW FUNCTION (QUANTITATIVE ? PER TRIAL): PENETRATION / ASPIRATION SCALE (FENG): 1 = does not enter airway 2 = enters airway/above vocal folds/ejected 3 = enters airway/above vocal folds/not ejected 4 = enters airway/contacts vocal folds/ejected 5 = enters airway/contacts vocal folds/not ejected 6 = enters airway/below vocal folds/ejected 7 = enters airway/below vocal folds/not ejected despite effort 8 = enters airway/below vocal folds/no effort VIDEOFLOROSCOPIC SCALE SCORE (FENG): Grade I = aspiration of material that has penetrated into the laryngeal vestibule, intact cough reflex Grade II = aspiration < 10 % of the bolus, intact cough reflex Grade III = aspiration of < 10 % of the bolus, reduced cough reflex or aspiration of > 10 % of the bolus, intact cough reflex Grade IV = aspiration of > 10 % of the bolus, reduced cough reflex - Penetration-Aspiration Scale Score Thin Liquid via teaspoon Result: 1= does not enter airway Thin Liquid via large single sip from cup Result: 2= enter airway/above vocal folds/ejected Comment: cued for patient to taking his normal size sip Thin Liquid via small single sip from cup Result: 2= enter airway/above vocal folds/ejected Comment: trace penetration Thin Liquid via single sip from straw Result: 2= enter airway/above vocal folds/ejected [place] Thick Liquid via small single sip from cup Result: 1= does not enter airway Honey Thick Liquid via small single sip from cup Result: 1= does not enter airway Pudding Result: 1= does not enter airway Cookie Result: 1= does not enter airway Thin Liquid via large single sip from cup Trial 2 Result: 2= enter airway/above vocal folds/ejected Comment: liquid wash to clear cookie residue Barium Tablet Result: 1= does not enter airway Comment: w/ liquid wash Barium Tablet Trial 2 Result: 1= does not enter airway Comment: w/ applesauce - Oral Phase Labial Seal: Interlabial escape, no progression to anterior lip Tongue Control During Bolus Hold: Posterior escape of greater than half of bolus Bolus Preparation/Mastication: Disorganized chewing/mashing with solid pieces of bolus unchewed Bolus Transport/Lingual Motion: Repetitive/disorganized tongue motion Oral Residue: Residue collection on oral structures - Pharyngeal Phase Initiation of Pharyngeal Swallow: Bolus head in pyriforms Soft Palate Elevation: No bolus between soft palate and pharyngeal wall Laryngeal Elevation: Min superior movement thyroid cart/min apprx aryte cart-epig petiole Anterior Hyoid Excursion: Partial anterior movement Epiglottic Movement: Partial inversion Laryngeal Vestibule Closure at Height of Swallow: Incomplete; narrow column of air/contrast in laryngeal vestibule Pharyngeal Stripping Wave: Present - diminished Pharyngoesophageal Segment Opening: Parital distension and partial duration; parital obstruction of flow Tongue Base Retraction: Wide column of contrast between tongue base & post. pharyngeal wall Pharyngeal Residue: Collection of residue within or on pharyngeal structures - Esophageal Phase Esophageal Clearance: Complete clearance - Treatment Strategies Effects of treatment strategies attemped:: small sips = effective liquid wash to clear pharyngeal residue = effective multiple swallows = effective - Diagnosis/Impression Diagnosis: mild oropharyngeal dysphagia (R13.12) Impression: Patient presents w/ mild oropharyngeal dysphagia. Oral phase primarily marked by... - repetitive and disorganized tongue control - poor AP transit - decreased bolus control resulting in posterior loss of greater than half of bolus to the pyriforms seen w/ various consistences - trialed barium tablet w/ water and applesauce. Patient required 6 sips of water to clear barium tablet which puts patient at increased risk for penetration/aspiration d/t patient taking lg, quick sips. Barium tablet observed sticking to roof of patient's mouth. Significant improvement w/ barium tablet in applesauce, however tablet caught in valleculae. Required 2 swallows to clear. Pharyngeal phase primarily marked by... - delayed pharyngeal swallow onset timing resulting in suboptimal bolus location upon swallow onset - reduced closure of the airway during deglutition attributed to reduced laryngeal elevation and reduced anterior hyoid excursion resulting in insufficient epiglottic inversion - moderate amount of pharyngeal residue within the valleculae post deglutition attributed to reduced tongue base retraction and reduced pharyngeal stripping wave action - laryngeal penetration observed w/ lg sips via cup and straw that was fully ejected. When patient was cued to take smaller sips, trace penetration observed. No aspiration seen throughout study. No esophageal concerns as pudding was cleared in timely manner. - Recommendations Diet: Regular Textures, Thin Liquids Comment: Medications one at a time w/ applesauce Compensatory Strategies: Small Bites, Small Sips, No Straws, Multiple Swallows, Alternate bites/solids and sips/liquids, Sitting upright, Remain sitting upright for 30 minutes after PO intake Recommend Repeat Modified Barium Swallow: No Need for Skilled Speech Therapy Services: Yes Comment: Will recommend the patient for dysphagia therapy to address deficits in oropharyngeal swallow function. Would consider the patient for oropharyngeal strengthening exercise program. The patient and would benefit from thorough education regarding diet recommendations and recommended compensatory strategies. Education Completed: 1. Described result of evaluation., 2. Pt understands evaluation & agrees with goals and treatment plan. - Status Active ST Patient: Active - Contact Information [facility] Speech Therapy:: Yeimy Kaiser M.A. [facility] Speech-Language Pathologist [facility] [address] [place] [address] [email or web address] [phone] 12/24/22 14:00
[2022-12-24 16:00] VITALS: BP 114/58; PULSE 74; RESP 16; TEMP 36.1; O2SAT 96
[2022-12-24] MEDS: Tamsulosin HCl 0.4 MG Capsule PO (16:55)
[2022-12-24] MEDS: Rivaroxaban 15 MG Tablet PO (16:55)
[2022-12-24] MEDS: MELATONIN 10 MG TABLET PO (20:06)
[2022-12-24] MEDS: Atorvastatin Calcium 10 MG Tablet PO (20:06)
[2022-12-24] MEDS: 0.9% Saline Lock 10 ML Syringe IV (20:07)
--- NOTE | 2022-12-24 20:11 | NURSING ---
Pt requested medication at this time
[2022-12-25 05:03] VITALS: BMI 29.8
[2022-12-25] MEDS: Polyethylene Glycol 3350 17 GM PACKET PO (05:34)
[2022-12-25] MEDS: NYSTATIN 500,000 UNIT/5 ML UDC 500000 UNIT PO ×4 (05:35→21:48)
[2022-12-25] MEDS: Cefdinir 300 MG Capsule PO (05:35)
[2022-12-25] MEDS: Senna/Docusate Sodium 1 Tablet PO ×2 (05:35→18:13)
[2022-12-25] MEDS: Furosemide 40 MG Tablet PO (05:35)
[2022-12-25] MEDS: Menthol/Lanolin/Calamine/Znox 113 GM Tube 1 APPLIC TOPICAL ×3 (05:35→21:48)
[2022-12-25 06:17] LABS: Anion Gap 6 (5-15); BUN 43 mg/dL (7-18); BUN/Creat Ratio 27.6 RATIO (10-20); Calcium,Total 9.3 mg/dL (8.5-10.1); Chloride 99 mmol/L (98-107); Creatinine, Serum 1.56 mg/dL (0.70-1.30); EST Glomerular Filtration Rate 45 mL/min (>60); Est Glom Filt Rate - Afr Amer 55 mL/min (>60); Estimated Creatinine Clearance 33.49 ml/min; Glucose 148 mg/dL (74-106); Potassium 3.5 mmol/L (3.5-5.1); Sodium Level 136 mmol/L (136-145)
[2022-12-25 07:49] VITALS: O2SAT 93
[2022-12-25] MEDS: Aspirin E.C. 81 MG Tablet PO (08:03)
[2022-12-25] MEDS: Potassium Chloride Oral Tablet 20 MEQ PO ×2 (08:03→18:13)
[2022-12-25] MEDS: Multivitamins,Ther W-Minerals Tablet 1 TABLET PO (08:03)
--- NOTE | 2022-12-25 14:42 | CASEMGMT ---
Social Work BIMS () and PHQ-9 (03/04) completed for MDS assessment. SW explored positive responses. Pt states d/t reason for admission, pt is unable to participate in activities and feeling down at times. SW provided emotional support. Phyllis Vela, [employer]
[2022-12-25 14:43] VITALS: BP 124/69; PULSE 70; RESP 15; TEMP 36.1; O2SAT 96
[2022-12-25] MEDS: Rivaroxaban 15 MG Tablet PO (18:13)
[2022-12-25] MEDS: Tamsulosin HCl 0.4 MG Capsule PO (18:13)
[2022-12-25] MEDS: Atorvastatin Calcium 10 MG Tablet PO (21:48)
[2022-12-25] MEDS: MELATONIN 10 MG TABLET PO (21:48)
[2022-12-25 22:00] VITALS: PULSE 69; RESP 16; O2SAT 97
[2022-12-26] MEDS: Polyethylene Glycol 3350 17 GM PACKET PO (05:17)
[2022-12-26] MEDS: NYSTATIN 500,000 UNIT/5 ML UDC 500000 UNIT PO ×4 (05:17→21:57)
[2022-12-26] MEDS: Menthol/Lanolin/Calamine/Znox 113 GM Tube 1 APPLIC TOPICAL ×3 (05:17→21:56)
[2022-12-26] MEDS: Senna/Docusate Sodium 1 Tablet PO ×2 (05:17→17:19)
[2022-12-26] MEDS: Furosemide 40 MG Tablet PO (05:17)
[2022-12-26 05:48] VITALS: BMI 29.8
[2022-12-26 06:18] LABS: Absolute Lymphocyte Count 1.32 X10^3/uL (0.83-4.51); Basophil# 0.03 X10^3/uL; Basophil% 0.4 % (0-1); Eosinophil# 0.05 X10^3/uL; Eosinophils% 0.6 % (0-5); Hemoglobin 13.6 g/dL (13.0-16.5); Lymphocyte # 1.32 X10^3/ul (0.83-4.51); Lymphocyte % 16.4 % (19-41); Mean Corp Hgb Conc 32.4 g/dL (32-36); Mean Corpuscular Hgb 30.5 pg (27.0-32.0); Mean Corpuscular Volume 94.2 fL (80-94); Mean Platelet Vol. 9.2 fl (6.2-12.0); Monocyte% 7.4 % (0-10); NRBC Flagged by Analyzer 0 % (0-5); Neutrophil # 6.02 X10^3/uL (2.7-7.7); Neutrophil % 74.6 % (47-70); Platelet Count 231 K/mm3 (150-450); RBC Distribution Width CV 14.1 % (11.6-14.6); RBC Distribution Width SD 48.2 fl (35.1-43.9); Red Blood Count 4.46 M/mm3 (4.6-6.2); White Blood Count 8.1 K/mm3 (4.4-11.0)
[2022-12-26 06:48] LABS: Anion Gap 6 (5-15); BUN 37 mg/dL (7-18); BUN/Creat Ratio 23.4 RATIO (10-20); Calcium,Total 9.5 mg/dL (8.5-10.1); Chloride 99 mmol/L (98-107); Creatinine, Serum 1.58 mg/dL (0.70-1.30); EST Glomerular Filtration Rate 45 mL/min (>60); Est Glom Filt Rate - Afr Amer 54 mL/min (>60); Estimated Creatinine Clearance 33.07 ml/min; Glucose 131 mg/dL (74-106); Potassium 3.8 mmol/L (3.5-5.1); Sodium Level 136 mmol/L (136-145)
[2022-12-26] MEDS: Aspirin E.C. 81 MG Tablet PO (07:44)
[2022-12-26] MEDS: Multivitamins,Ther W-Minerals Tablet 1 TABLET PO (07:45)
[2022-12-26] MEDS: Potassium Chloride Oral Tablet 20 MEQ PO ×2 (07:45→17:19)
[2022-12-26] MEDS: Tuberculin,Purif.prot.deriv. 50 TU/ML Vial 0.1 ML ID (12:47)
[2022-12-26 13:13] VITALS: PULSE 71; O2SAT 97
[2022-12-26 16:00] VITALS: BP 144/71; PULSE 70; RESP 16; TEMP 36.3; O2SAT 96
[2022-12-26] MEDS: Rivaroxaban 15 MG Tablet PO (17:18)
[2022-12-26] MEDS: Tamsulosin HCl 0.4 MG Capsule PO (17:19)
[2022-12-26] MEDS: MELATONIN 10 MG TABLET PO (21:57)
[2022-12-26] MEDS: Atorvastatin Calcium 10 MG Tablet PO (21:58)
[2022-12-27 06:00] VITALS: BMI 29.7
[2022-12-27] MEDS: Menthol/Lanolin/Calamine/Znox 113 GM Tube 1 APPLIC TOPICAL ×3 (06:38→21:43)
[2022-12-27] MEDS: Polyethylene Glycol 3350 17 GM PACKET PO (06:38)
[2022-12-27] MEDS: Furosemide 40 MG Tablet PO (06:39)
[2022-12-27] MEDS: NYSTATIN 500,000 UNIT/5 ML UDC 500000 UNIT PO ×4 (06:39→21:41)
[2022-12-27] MEDS: Senna/Docusate Sodium 1 Tablet PO ×2 (06:39→17:17)
[2022-12-27] MEDS: Potassium Chloride Oral Tablet 20 MEQ PO ×2 (08:27→17:17)
[2022-12-27] MEDS: Aspirin E.C. 81 MG Tablet PO (08:27)
[2022-12-27] MEDS: Multivitamins,Ther W-Minerals Tablet 1 TABLET PO (08:27)
[2022-12-27 15:33] VITALS: BP 121/65; PULSE 70; RESP 14; TEMP 36.3; O2SAT 95
[2022-12-27] MEDS: Rivaroxaban 15 MG Tablet PO (17:17)
[2022-12-27] MEDS: Tamsulosin HCl 0.4 MG Capsule PO (17:17)
[2022-12-27] MEDS: MELATONIN 10 MG TABLET PO (21:41)
[2022-12-27] MEDS: Atorvastatin Calcium 10 MG Tablet PO (21:41)
[2022-12-28 06:00] VITALS: BMI 29.8
[2022-12-28] MEDS: Polyethylene Glycol 3350 17 GM PACKET PO (06:21)
[2022-12-28] MEDS: Senna/Docusate Sodium 1 Tablet PO ×2 (06:23→17:33)
[2022-12-28] MEDS: Menthol/Lanolin/Calamine/Znox 113 GM Tube 1 APPLIC TOPICAL ×3 (06:30→21:21)
[2022-12-28] MEDS: NYSTATIN 500,000 UNIT/5 ML UDC 500000 UNIT PO ×4 (06:31→21:22)
[2022-12-28 06:34] VITALS: BP 81/47; PULSE 72
[2022-12-28 06:35] VITALS: BP 76/42
--- NOTE | 2022-12-28 06:36 | NURSING ---
Lasix and Zaroxolyn held at this time d/t low BP- 81/47 (right) and 76/42 (left). Pt denies any c/o. Speech is clear and is able to answer all questions asked appropriately. Remains alert throughout interaction. HOB lowered to a comfortable position for pt, BLE elevated, and assisted to repositioning to his right side. Will report to oncoming nurse and continue to monitor.
[2022-12-28] MEDS: Aspirin E.C. 81 MG Tablet PO (08:58)
[2022-12-28] MEDS: Multivitamins,Ther W-Minerals Tablet 1 TABLET PO (08:58)
[2022-12-28] MEDS: Potassium Chloride Oral Tablet 20 MEQ PO ×2 (08:59→17:33)
[2022-12-28 09:01] VITALS: BP 116/55; PULSE 72
[2022-12-28 09:05] VITALS: PULSE 71; RESP 16; O2SAT 94
[2022-12-28 14:36] VITALS: BMI 30.6
[2022-12-28 16:00] VITALS: BP 142/82; PULSE 77; RESP 16; TEMP 36.1
[2022-12-28] MEDS: Tamsulosin HCl 0.4 MG Capsule PO (17:33)
[2022-12-28] MEDS: Rivaroxaban 15 MG Tablet PO (17:33)
[2022-12-28] MEDS: MELATONIN 10 MG TABLET PO (21:21)
[2022-12-28] MEDS: Atorvastatin Calcium 10 MG Tablet PO (21:21)
[2022-12-29] MEDS: Menthol/Lanolin/Calamine/Znox 113 GM Tube 1 APPLIC TOPICAL ×3 (06:33→21:15)
[2022-12-29] MEDS: Furosemide 40 MG Tablet PO (06:34)
[2022-12-29] MEDS: Senna/Docusate Sodium 1 Tablet PO ×2 (06:34→17:40)
[2022-12-29] MEDS: Polyethylene Glycol 3350 17 GM PACKET PO (06:34)
[2022-12-29] MEDS: NYSTATIN 500,000 UNIT/5 ML UDC 500000 UNIT PO ×4 (06:34→21:15)
[2022-12-29 06:38] VITALS: BP 112/58; PULSE 71; RESP 16
--- NOTE | 2022-12-29 07:12 | MDS.RN ---
Information for the mds was obtained from review of the clinical record, interview of resident, staff, and direct observation of resident's care.
[2022-12-29] MEDS: Aspirin E.C. 81 MG Tablet PO (08:58)
[2022-12-29] MEDS: Multivitamins,Ther W-Minerals Tablet 1 TABLET PO (08:58)
[2022-12-29] MEDS: Potassium Chloride Oral Tablet 20 MEQ PO ×2 (08:58→17:40)
--- NOTE | 2022-12-29 14:11 | CASEMGMT ---
Social Work SW followed up with pt and in pts room. feels confident taking pt home after therapy training. Pt has Dr appt on 12/31 and would like to DC on this date. IDT agreeable. SW offered skilled C provider list to review, pt/ has no preference and agreeable to [facility]. No DME needs. to transport prior to appt at 0915. SW phoned referral to [facility] PT/OT/ST/SN. Plan: DC home with 12/31, [facility] PT/OT/ST/SN ROBERTA SalvadorW
[2022-12-29 14:36] VITALS: BP 113/59; PULSE 69; RESP 16; TEMP 36.2; O2SAT 97
[2022-12-29 15:32] VITALS: BMI 30.6
[2022-12-29] MEDS: Rivaroxaban 15 MG Tablet PO (17:40)
[2022-12-29] MEDS: Tamsulosin HCl 0.4 MG Capsule PO (17:40)
[2022-12-29] MEDS: Atorvastatin Calcium 10 MG Tablet PO (21:15)
[2022-12-29] MEDS: MELATONIN 10 MG TABLET PO (21:15)
[2022-12-29] MEDS: Acetaminophen 500 MG Tablet 1000 MG PO (21:20)
--- NOTE | 2022-12-29 21:37 | DS.PCM_ITS ---
Providers Date of Admission: 12/18/22 Primary Care Physician: Dr. Enrique Kennedy MD Reason For Visit: HYPOXIA/CHF Diagnosis Discharge Diagnosis (1) Debility: Status: Acute Code(s): R53.81 - Other malaise (2) Acute on chronic diastolic (congestive) heart failure: Status: Resolved Code(s): I50.33 - Acute on chronic diastolic (congestive) heart failure (3) Hypokalemia: Status: Resolved Code(s): E87.6 - Hypokalemia (4) Streptococcal bacteremia: Status: Acute Code(s): R78.81 - Bacteremia; B95.5 - Unspecified streptococcus as the cause of diseases classified elsewhere (5) Hypoxia: Status: Resolved Code(s): R09.02 - Hypoxemia (6) Atrial fibrillation: Status: Acute Code(s): I48.91 - Unspecified atrial fibrillation (7) Coronary artery disease: Status: Acute Code(s): I25.10 - Atherosclerotic heart disease of [place] coronary artery without angina pectoris (8) Hyperlipidemia: Status: Acute Code(s): E78.5 - Hyperlipidemia, unspecified (9) Chronic kidney disease, stage 3b: Status: Acute Code(s): N18.32 - Chronic kidney disease, stage 3b Plan 87 year old male with below past medical history hospitalized for acute hypoxia secondary to acute on chronic diastolic congestive heart failure, complicated by strep bacteremia, admitted to TCU with debility, here for rehabilitation, strengthening, prior to discharge home with . * Debility - PT/OT. * Pain - Tylenol 1000mg q6h prn pain (1-10). * Bowel - Miralax 17gm daily, senna/colace 1 tablet bid, Lactulose 20gm po x 1 dose. * Adult immunization - Administer pneumonia vaccine, covid19 vaccine, flu vaccine as appropriate. * DVT prophylaxis - Already on Xarelto. * Coronary artery disease - Aspirin 81mg daily. * Hyperlipidemia - Atorvastatin 10mg qhs. * Strep bacteremia - Cefdinir 300mg q12h thru 12/25/2022. * Chronic diastolic congestive heart failure - Furosemide 80mg daily, Metolazone 2.5mg 2 days/week. * Nutrition - MVI daily. * Hypokalemia - KCL 20meq bidcm. * Atrial fibrillation - Xarelto 15mg daily. Medications at Discharge Home Medications [id number] acid 0.4 mg-lycopene 300 mcg-lutein 250 mcg tablet 1 tab PO DAILY supplement 05/24/13 lactobacillus combination no.9 4 billion cell capsule (Adult 50 Plus Probiotic) 4,000 mmu cells PO DAILY supplement 12/10/20 lovastatin 40 mg tablet 40 mg PO QHS heart disease #90 tabs 09/17/22 rivaroxaban 15 mg tablet 15 mg PO DAILY blood clot prevention #90 tabs 11/20/22 acetaminophen 500 mg tablet 1,000 mg PO Q6H PRN PRN Pain Score 1-10 #0 tabs 12/29/22 furosemide 40 mg tablet 40 mg PO DAILY 30 days #30 tabs 12/29/22 metolazone 2.5 mg tablet 2.5 mg PO Mo@0600 #0 tabs 12/29/22 potassium chloride 20 mEq tablet,extended release(part/cryst) (Klor-Con M) 20 meq PO BIDCM 30 days #60 tabs 12/29/22 tamsulosin 0.4 mg capsule 0.4 mg PO DAILY@1730 30 days #30 caps 12/29/22 Hospital Course Operations None Procedures None Summary of Care Provided Minutes Spent on Discharge: 35 Hospital Course: 87 year old male with below past medical history hospitalized for acute hypoxia secondary to acute on chronic diastolic congestive heart failure, complicated by strep bacteremia, admitted to TCU with debility, here for rehabilitation, strengthening, prior to discharge home with . Discharge home with 12/31/2022, [facility] PT/OT/ST/SN.
--- NOTE | 2022-12-29 21:37 | PCM.DC.SUM ---
Providers Date of Admission: 12/18/22 Primary Care Physician: Dr. Enrique Kennedy MD Reason For Visit: HYPOXIA/CHF Diagnosis Discharge Diagnosis (1) Debility: Status: Acute Code(s): R53.81 - Other malaise (2) Acute on chronic diastolic (congestive) heart failure: Status: Resolved Code(s): I50.33 - Acute on chronic diastolic (congestive) heart failure (3) Hypokalemia: Status: Resolved Code(s): E87.6 - Hypokalemia (4) Streptococcal bacteremia: Status: Acute Code(s): R78.81 - Bacteremia; B95.5 - Unspecified streptococcus as the cause of diseases classified elsewhere (5) Hypoxia: Status: Resolved Code(s): R09.02 - Hypoxemia (6) Atrial fibrillation: Status: Acute Code(s): I48.91 - Unspecified atrial fibrillation (7) Coronary artery disease: Status: Acute Code(s): I25.10 - Atherosclerotic heart disease of [place] coronary artery without angina pectoris (8) Hyperlipidemia: Status: Acute Code(s): E78.5 - Hyperlipidemia, unspecified (9) Chronic kidney disease, stage 3b: Status: Acute Code(s): N18.32 - Chronic kidney disease, stage 3b Plan 87 year old male with below past medical history hospitalized for acute hypoxia secondary to acute on chronic diastolic congestive heart failure, complicated by strep bacteremia, admitted to TCU with debility, here for rehabilitation, strengthening, prior to discharge home with . Debility - PT/OT. Pain - Tylenol 1000mg q6h prn pain (1-10). Bowel - Miralax 17gm daily, senna/colace 1 tablet bid, Lactulose 20gm po x 1 dose. Adult immunization - Administer pneumonia vaccine, covid19 vaccine, flu vaccine as appropriate. DVT prophylaxis - Already on Xarelto. Coronary artery disease - Aspirin 81mg daily. Hyperlipidemia - Atorvastatin 10mg qhs. Strep bacteremia - Cefdinir 300mg q12h thru 12/25/2022. Chronic diastolic congestive heart failure - Furosemide 80mg daily, Metolazone 2.5mg 2 days/week. Nutrition - MVI daily. Hypokalemia - KCL 20meq bidcm. Atrial fibrillation - Xarelto 15mg daily. Medications at Discharge Home Medications jegrnpug-ibf-riede acid 0.4 mg-lycopene 300 mcg-lutein 250 mcg tablet 1 tab PO DAILY supplement 05/24/13 lactobacillus combination no.9 4 billion cell capsule (Adult 50 Plus Probiotic) 4,000 mmu cells PO DAILY supplement 12/10/20 lovastatin 40 mg tablet 40 mg PO QHS heart disease #90 tabs 09/17/22 rivaroxaban 15 mg tablet 15 mg PO DAILY blood clot prevention #90 tabs 11/20/22 acetaminophen 500 mg tablet 1,000 mg PO Q6H PRN PRN Pain Score 1-10 #0 tabs 12/29/22 furosemide 40 mg tablet 40 mg PO DAILY 30 days #30 tabs 12/29/22 metolazone 2.5 mg tablet 2.5 mg PO Mo@0600 #0 tabs 12/29/22 potassium chloride 20 mEq tablet,extended release(part/cryst) (Klor-Con M) 20 meq PO BIDCM 30 days #60 tabs 12/29/22 tamsulosin 0.4 mg capsule 0.4 mg PO DAILY@1730 30 days #30 caps 12/29/22 Hospital Course Operations None Procedures None Summary of Care Provided Minutes Spent on Discharge: 35 Hospital Course: 87 year old male with below past medical history hospitalized for acute hypoxia secondary to acute on chronic diastolic congestive heart failure, complicated by strep bacteremia, admitted to TCU with debility, here for rehabilitation, strengthening, prior to discharge home with . Discharge home with 12/31/2022, [facility] PT/OT/ST/SN. Physical Exam Const alert General Appearance: cooperative HEENT normocephalic Eyes PERRL and EOMs intact bilaterally Neck supple, no JVD and no carotid bruits Resp normal respiratory effort, normal air movement and clear to auscultation bilaterally Cardio regular rate and regular rhythm GI normal to inspection, nondistended, normoactive bowel sounds, non-tender and non-distended Extremity normal capillary refill General Extremity: Negative for edema Skin no rashes or lesions noted General Skin Exam: no breakdown Psych affect normal Appearance: appropriate Weight / BMI Weight Weight: 91.354 kg Body Mass Index (BMI) 30.6 ABG / Lab / Microbiology Data Result Diagrams: 12/26/22 05:53 12/26/22 05:53 Microbiology: Microbiology 12/22/22 04:40 Nasal Secretion SARS-CoV-2 Antigen (Rapid) - Final 12/20/22 09:18 Nasal Secretion SARS-CoV-2 Antigen (Rapid) - Final D/C Instructions Discharge Diet: No restrictions Discharge Activity: Return to Normal Activity, May Shower and Use Walker Weight Bearing Status: Weight bearing as tolerated Call your doctor if you observe: Fever of 101 or Higher, Inability to urinate, Inability to have a bowel movement, Shortness of breath, Dizziness, Fainting spells, Swelling in the ankles, Chest pain and Uncontrolled pain Additional Instructions: Discharge home with 12/31/2022, [facility] PT/OT/ST/SN. Meaningful Use Info Meaningful Use Diagnoses (Choose all that apply): None applicable Discharge Plan Admission Admit Date/Time: 12/18/22 13:58 Primary Reason for Your Visit: Debility. Attending Provider: Natanael Yeboah Chi Primary Care Provider: Enrique Kennedy Instructions Additional Instructions / Restrictions: Discharge home with 12/31/2022, [facility] PT/OT/ST/SN. Discharge Orders/Prescriptions Prescriptions: New furosemide 40 mg Tablet 40 mg PO DAILY 30 Days Qty: 30 0RF metolazone 2.5 mg Tablet 2.5 mg PO Mo@0600 Qty: 0 0RF acetaminophen 500 mg Tablet 1,000 mg PO Q6H PRN PRN (Reason: Pain Score 1-10) Qty: 0 0RF potassium chloride [Klor-Con M20] 20 mEq Tablet,Er Particles/Crystals 20 meq PO BIDCM 30 Days Qty: 60 0RF tamsulosin 0.4 mg Capsule 0.4 mg PO DAILY@1730 30 Days Qty: 30 0RF Continued Adult 50 Plus Probiotic 4 billion cell capsule 4,000 mmu cells PO DAILY Rx Instructions: administer with a meal jelrleub-clz-QR-lycopen-lutein 1 EACH tablet 1 tab PO DAILY Label Comments: MULTIVITAMIN lovastatin 40 mg tablet 40 mg PO QHS Qty: 90 3RF rivaroxaban 15 mg tablet 15 mg PO DAILY Qty: 90 3RF Discontinued potassium chloride 10 mEq tablet extended release 20 meq PO BID Rx Instructions: only takes with metolazone furosemide 80 mg tablet 80 mg PO DAILY Rx Instructions: current dose is 40 mg a day, sometimes pt needs to increase to 80 mg. metolazone 2.5 mg tablet See Rx Instructions .ROUTE .COMPLEX Qty: 14 0RF Rx Instructions: 2.5 mg orally Take Every Wednesday and cefdinir 300 mg capsule 300 mg PO Q12H Ensure Plus High Protein 0.08 gram-1.5 kcal/mL liquid 120 ml PO TIDCM aspirin [Adult Aspirin Regimen] 81 mg tablet,delayed release (DR/EC) 81 mg PO QDAY Qty: 90 3RF Referrals / Follow Up: Enrique Kennedy MD [Primary Care Provider] - Disposition Disposition (needs filled in before D/C Order can be placed): Home Health Service
[2022-12-30 05:40] VITALS: BP 126/61; PULSE 86
[2022-12-30] MEDS: Menthol/Lanolin/Calamine/Znox 113 GM Tube 1 APPLIC TOPICAL ×3 (05:40→21:24)
[2022-12-30] MEDS: Senna/Docusate Sodium 1 Tablet PO ×2 (05:41→16:42)
[2022-12-30] MEDS: Polyethylene Glycol 3350 17 GM PACKET PO (05:41)
[2022-12-30] MEDS: NYSTATIN 500,000 UNIT/5 ML UDC 500000 UNIT PO ×4 (05:41→21:25)
[2022-12-30] MEDS: Furosemide 40 MG Tablet PO (05:41)
[2022-12-30 06:00] VITALS: BMI 29.8
[2022-12-30] MEDS: Aspirin E.C. 81 MG Tablet PO (08:23)
[2022-12-30] MEDS: Potassium Chloride Oral Tablet 20 MEQ PO ×2 (08:23→16:42)
[2022-12-30] MEDS: Multivitamins,Ther W-Minerals Tablet 1 TABLET PO (08:23)
[2022-12-30 11:20] VITALS: PULSE 94; O2SAT 95
[2022-12-30 15:16] VITALS: BP 101/56; PULSE 72; RESP 18; TEMP 35.9; O2SAT 95
[2022-12-30] MEDS: Tamsulosin HCl 0.4 MG Capsule PO (16:42)
[2022-12-30] MEDS: Rivaroxaban 15 MG Tablet PO (16:42)
[2022-12-30] MEDS: Atorvastatin Calcium 10 MG Tablet PO (21:24)
[2022-12-30] MEDS: MELATONIN 10 MG TABLET PO (21:24)
[2022-12-31] MEDS: Senna/Docusate Sodium 1 Tablet PO (05:30)
[2022-12-31] MEDS: Polyethylene Glycol 3350 17 GM PACKET PO (05:30)
[2022-12-31] MEDS: Menthol/Lanolin/Calamine/Znox 113 GM Tube 1 APPLIC TOPICAL (05:31)
[2022-12-31 05:36] VITALS: BP 90/40; PULSE 75; RESP 16
[2022-12-31 05:57] VITALS: BMI 30.2
[2022-12-31] MEDS: Aspirin E.C. 81 MG Tablet PO (07:57)
[2022-12-31] MEDS: Multivitamins,Ther W-Minerals Tablet 1 TABLET PO (07:57)
[2022-12-31] MEDS: Potassium Chloride Oral Tablet 20 MEQ PO (07:58)
[2022-12-31] MEDS: Furosemide 40 MG Tablet PO (07:58)
[2022-12-31 08:00] VITALS: BP 116/69; PULSE 71
--- NOTE | 2022-12-31 09:37 | CASEMGMT ---
Social Work BIMS () and PHQ-9 (10/05) completed for MDS assessment. Phyllis Vela MSW FORESTRY ADVISER
[2022-12-31 10:00] VITALS: PULSE 70; RESP 20
[2022-12-31 10:36] VITALS: BP 115/59; PULSE 70; RESP 20; TEMP 36.2; O2SAT 98
== END 2022-12-31 10:43 | disposition home health service (06) | DRG 291 ==
PROVIDERS: Admitting Provider Family Medicine Geriatric Medicine; PCP Family Medicine; Referring Provider Family Medicine Geriatric Medicine; Visit Provider Family Medicine Geriatric Medicine
DX: I13.0 Hypertensive heart and chronic kidney disease with heart failure and stage 1 through stage 4 chronic kidney disease, or unspecified chronic kidney disease (principal); I50.33 Acute on chronic diastolic (congestive) heart failure; R78.81 Bacteremia; I48.0 Paroxysmal atrial fibrillation; N18.32 Chronic kidney disease, stage 3b; E78.5 Hyperlipidemia, unspecified; I25.10 Atherosclerotic heart disease of native coronary artery without angina pectoris; E87.6 Hypokalemia; B95.5 Unspecified streptococcus as the cause of diseases classified elsewhere; Z79.02 Long term (current) use of antithrombotics/antiplatelets; Z79.82 Long term (current) use of aspirin; Z79.899 Other long term (current) drug therapy; Z95.0 Presence of cardiac pacemaker; R09.02 Hypoxemia
CPT/HCPCS: 36415; 74230; 80048; 85025; 87811; 92526; 92610; 92611; 97110; 97116; 97162; 97166; 97530; 97535; J7040; A4216

== ENCOUNTER 2023-01-12 17:56 | Emergency (ER) | payer MEDICARE, SELFPAY ==
[2023-01-12 18:27] VITALS: BP 111/65; PULSE 70; RESP 15; TEMP 36.6; O2SAT 98
[2023-01-12 18:29] LABS: Bacteria 0 SEEN /hpf (None Seen); Mucous, Urine 0 SEEN /hpf (<or=2+); Red Blood Cells-Urine 0 SEEN /hpf (0-5); Squamous Epithelial Cells - UA 0 SEEN /hpf (0-5); White Blood Cells 0 SEEN /hpf (0-5)
[2023-01-12 18:31] LABS: Color, Urine Yellow (Yellow); Glucose, Dipstick Normal (Normal); Ketone-Dipstick Negative (Negative); Leukocyte Esterase-Dipstick Negative /ul (Negative); Nitrite-Dipstick Negative (Negative); Occult Blood-Urine Negative /ul (Negative); Protein-Dipstick Negative (Negative); Specific Gravity, Urine 1.005 (1.002-1.030); Urine Bilirubin Dipstick Negative (Negative); Urine Clarity Clear (Clear); Urine Urobilinogen Normal (Normal)
--- NOTE | 2023-01-12 19:40 | EKG12_ITS ---
Test Reason : DYSRHYTHMIA Blood Pressure : / mmHG Vent. Rate : 070 BPM Atrial Rate : 069 BPM P-R Int : 000 ms QRS Dur : 170 ms QT Int : 452 ms P-R-T Axes : 000 -65 051 degrees QTc Int : 488 ms Ventricular-paced rhythm Abnormal ECG Confirmed by JOHN BRENNAN, VIGNESH ([id number]), subeditor MAGY JAMES ([id number]) on 01/13/2023 9:37:46 AM Referred By: KELI Confirmed By:VIGNESH LOPEZ MD
[2023-01-12 19:43] VITALS: BMI 30.4
--- NOTE | 2023-01-12 19:55 | RAD_ITS ---
ACR Level 3 findings have been noted. An addendum which confirms receipt of the report will follow. INDICATION: Weakness EXAMINATION/TECHNIQUE: X-RAY - XR Chest 1 View COMPARISON: 12/15/2022. FINDINGS: Central pulmonary venous congestion. Sternal cerclage wires and vascular clips are present from a prior sternotomy and coronary artery bypass graft procedure (CABG). The heart is mildly enlarged. Tortuous and calcified thoracic aorta. No pleural effusion or pneumothorax. There is questionable pneumomediastinum. Degenerative changes of the thoracic spine. RAD/Chest 1 View (Portable) IMPRESSION: Questionable pneumomediastinum. Recommend chest CT without contrast for further evaluation. Cardiomegaly with central pulmonary venous congestion. Electronically Signed: Ben Lindo MD at 20:50 EDT ,
[2023-01-12 19:57] LABS: Absolute Lymphocyte Count 1.55 X10^3/uL (0.83-4.51); Absolute Neutrophil Count 6.9 X10^3/uL (2.0-7.7); Basophil# 0.02 X10^3/uL; Basophil% 0.2 % (0-1); Eosinophil# 0.04 X10^3/uL; Eosinophils% 0.4 % (0-5); Hematocrit 39.8 % (40-54); Lymphocyte # 1.55 X10^3/ul (0.83-4.51); Lymphocyte % 16.6 % (19-41); Mean Corp Hgb Conc 32.7 g/dL (32-36); Mean Corpuscular Hgb 30.7 pg (27.0-32.0); Mean Corpuscular Volume 94.1 fL (80-94); Mean Platelet Vol. 9.2 fl (6.2-12.0); Monocyte# 0.73 X10^3/uL; Monocyte% 7.8 % (0-10); NRBC Flagged by Analyzer 0 % (0-5); Neutrophil # 6.94 X10^3/uL (2.7-7.7); Neutrophil % 74.5 % (47-70); Platelet Count 171 K/mm3 (150-450); RBC Distribution Width CV 14.7 % (11.6-14.6); RBC Distribution Width SD 50.6 fl (35.1-43.9); Red Blood Count 4.23 M/mm3 (4.6-6.2); White Blood Count 9.3 K/mm3 (4.4-11.0)
[2023-01-12 20:16] LABS: ALB/GLOB Ratio 0.8 RATIO (0.9-2.4); AST(SGOT) 22 U/L (15-37); Alanine Aminotransfer ALT/SGPT 34 U/L (16-61); Alkaline Phosphatase 147 U/L (45-117); Anion Gap 8 (5-15); BUN 28 mg/dL (7-18); BUN/Creat Ratio 16.5 RATIO (10-20); Calcium,Total 9.2 mg/dL (8.5-10.1); Chloride 99 mmol/L (98-107); EST Glomerular Filtration Rate 41 mL/min (>60); Est Glom Filt Rate - Afr Amer 49 mL/min (>60); Estimated Creatinine Clearance 30.74 ml/min; Globulin 3.9 g/dL (2.2-4.2); Glucose 103 mg/dL (74-106); Protein, Total 6.9 g/dL (6.4-8.2); Sodium Level 134 mmol/L (136-145); Troponin-I HS 29 pg/mL (3.0-78.0)
[2023-01-12 20:54] LABS: BNP,B-Type NATRIURETIC PEPTIDE 238.5 pg/mL (0-100)
--- NOTE | 2023-01-12 21:02 | CT_ITS ---
INDICATION: weakness EXAMINATION: CT Chest W/O Contrast Injection TECHNIQUE: Helically acquired images were obtained of the chest without IV contrast. A radiation dose optimization technique was used for this scan. COMPARISON: 03/23/2021. FINDINGS: Lungs: Chronic interstitial lung changes. 5 mm calcified granuloma in the right middle lobe. Mild intralobular septal thickening. Scattered ground glass opacities. Mediastinum: The heart is moderately enlarged. No mediastinal, hilar or axillary adenopathy. Mild aortic arch and coronary artery calcifications. Pleura: Unremarkable Bones/Soft tissues: Mild scattered degenerative changes of the visualized spine. Upper abdomen: No visualized abnormalities in the upper abdomen. CT/Chest without Contrast IMPRESSION: Moderate cardiomegaly with minimal interstitial edema. Electronically Signed: Ben Lindo MD at 22:22 EDT ,
--- NOTE | 2023-01-12 21:05 | CT_ITS ---
ACR Level 3 findings have been noted. An addendum which confirms receipt of the report will follow. EXAMINATION : Head CT w/out contrast HISTORY : Multiple falls COMPARISON : None. TECHNIQUE : Multiple contiguous axial images were obtained from the skull base to the vertex without intravenous contrast. A radiation dose optimization technique was used for this scan. FINDINGS : There is a hyperdense right hemispheric fluid collection with thickness of 1 cm. There is right parietal encephalomalacia as well as right parietal intraparenchymal hemorrhage measuring 3.1 x 2.7 x 2.2 cm..There is subarachnoid hemorrhage as well. There is 2 mm right to left subfalcine shift. There is diffuse cerebral edema in the right cerebral hemisphere. There are periventricular white matter changes consistent with chronic microvascular ischemic disease. There is sulcal widening and ventricular enlargement consistent with cerebral atrophy. The skull base and calvarium are unremarkable. The orbits are unremarkable. Chronic left maxillary sinusitis. The mastoid air cells are well-aerated. The soft tissues are unremarkable. CT/Brain/Head without Contrast IMPRESSION: Acute 1 cm right hemispheric subdural hematoma with subarachnoid hemorrhage. There is also right parietal intraparenchymal hemorrhage as well as right parietal encephalomalacia. Cannot rule out hemorrhagic conversion of a neoplasm. Recommend brain MRI with and without contrast. 2 mm right to left subfalcine herniation. Diffuse cerebral edema in the right cerebral hemisphere. Chronic involutional and ischemic changes of the brain. Chronic left maxillary sinusitis. Electronically Signed: Ben Lindo MD at 22:17 EDT ,
--- NOTE | 2023-01-12 21:06 | EX.ED.DYSGE1 ---
HPI History of Present Illness Chief Complaint: Weakness Narrative Narrative: 87-year-old male presenting with debility. He had a recent admission to the hospital and was transferred to TCU. They felt he was strong enough to go home. Family reports that on Wednesday the patient was so weak he fell 5 times. He states that he did not hit his head. He has been generally weak since then. He is having trouble getting around. Family brought him back for rehab. The patient himself just says he feels weak. He does not have chest pain or shortness of breath. He is not nauseous. He has not had a fever. [facility] Medical History Accelerated junctional rhythm (03/23/21) Atherosclerosis of coronary artery of [place] heart without angina pectoris Bacteremia Body mass index (bmi) 32.0-32.9, adult Carotid bruit Cellulitis Chronic diastolic heart failure Chronic renal insufficiency Complete heart block (02/13/22) Hyperbilirubinemia Hyperlipidemia Palpitations Paroxysmal atrial fibrillation Prostate enlargement Renal insufficiency Secondary pulmonary arterial hypertension Shortness of breath Home Medications pvwcwghs-iek-xqwcb acid 0.4 mg-lycopene 300 mcg-lutein 250 mcg tablet 1 tab PO DAILY supplement 05/24/13 [History Last Taken 12/14/22] lactobacillus combination no.9 4 billion cell capsule (Adult 50 Plus Probiotic) 4,000 mmu cells PO DAILY supplement 12/10/20 [History Last Taken 12/14/22] lovastatin 40 mg tablet 40 mg PO QHS heart disease #90 tabs 09/17/22 [Rx Last Taken 12/14/22] rivaroxaban 15 mg tablet 15 mg PO DAILY blood clot prevention #90 tabs 11/20/22 [Rx Last Taken 12/14/22] acetaminophen 500 mg tablet 1,000 mg PO Q6H PRN PRN Pain Score 1-10 #0 tabs 12/29/22 [Rx Last Taken Unknown] furosemide 40 mg tablet 40 mg PO DAILY 30 days #30 tabs 12/29/22 [Rx Last Taken Unknown] metolazone 2.5 mg tablet 2.5 mg PO Mo@0600 #0 tabs 12/29/22 [Rx Last Taken Unknown] potassium chloride 20 mEq tablet,extended release(part/cryst) (Klor-Con M) 20 meq PO BIDCM 30 days #60 tabs 12/29/22 [Rx Last Taken Unknown] tamsulosin 0.4 mg capsule 0.4 mg PO DAILY@1730 30 days #30 caps 12/29/22 [Rx Last Taken Unknown] aspirin 81 mg tablet 81 mg PO DAILY 01/12/23 [History Last Taken Unknown] Allergy/AdvReac Type Severity Reaction Status Date / Time spironolactone AdvReac Elevated Verified 01/12/23 18:31 Potassium Family History Mother CAD (coronary artery disease) Brother CAD (coronary artery disease) Surgical History H/O coronary artery bypass surgery (09/20/97) History of appendectomy History of cardioversion (08/25/21) History of left heart catheterization (12/12/14) 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) Hx of atrioventricular node ablation (05/07/22) Hx of cholecystectomy Social History household members: spouse Smoking Status: Never smoker alcohol intake: never substance use type: does not use caffeine: Yes Type: coffee Number of servings: 1 what type of physical activity do you participate in: none seatbelt use: always do you feel safe at home: Yes ROS ROS ED Constitutional Constitutional ED: Denies chills, fever(s) or sweats Eyes Eyes: Denies blurry vision or change in vision ENT ENT ED: Denies ear pain or sore throat Cardiovascular Cardiovascular: Denies chest pain, palpitations or racing heartbeat Respiratory/Chest Respiratory/Chest: Denies cough, dyspnea or sputum Gastrointestinal Gastrointestinal: Denies abdominal pain, constipation, diarrhea, nausea or vomiting Genitourinary Genitourinary ED: Denies dysuria, hematuria or urinary frequency Musculoskeletal Musculoskeletal: Denies arthralgias, myalgias or neck pain Integumentary Denies abscess, Abrasions or rash Neurologic Neurologic: Denies headache(s), paresthesias or weakness Psychiatric Psychiatric: Denies anxiety, depression, suicidal ideation or suicidal thoughts Endocrine Endocrinology: Denies polydipsia or polyuria EXAM Physical Exam Const Vital Signs: 01/12/23 18:27 01/12/23 19:48 01/12/23 21:57 Temperature 97.9 F Temperature Source Temporal Pulse Rate 70 Respiratory Rate 15 Respiratory Effort Normal Respiratory Pattern Normal Blood Pressure 111/65 Blood Pressure Mean 80 Pulse Ox 98 Oxygen Delivery Method Room Air Room Air 01/12/23 21:57 01/12/23 21:52 01/12/23 22:06 Temperature Temperature Source Pulse Rate 120 H 79 104 H Respiratory Rate 24 H 19 H 18 Respiratory Effort Respiratory Pattern Blood Pressure 120/63 122/61 H 132/73 H Blood Pressure Mean 82 81 92 Pulse Ox 96 96 97 Oxygen Delivery Method Room Air Room Air Room Air 01/12/23 22:33 Temperature Temperature Source Pulse Rate 72 Respiratory Rate 33 H Respiratory Effort Respiratory Pattern Blood Pressure Blood Pressure Mean Pulse Ox 96 Oxygen Delivery Method Room Air Positive well nourished General Appearance ED: NAD; Negative for pallor HEENT Reports moist mucous membranes Eyes PERRL and EOMs intact bilaterally Chest Wall inspection of chest normal Resp normal respiratory effort and clear to auscultation bilaterally Auscultation: Negative for rales, rhonchi or wheezes Cardio regular rate and regular rhythm GI normal to inspection, nondistended, normoactive bowel sounds Neuro oriented x3, CN's II-XII intact bilaterally and no sensory deficits noted Sensorium / Orientation: alert Motor Exam: general weakness Psych mental status grossly normal Skin no rashes or lesions noted and no wounds General Skin Exam: Negative for jaundice or pallor MDM MDM MDM Narrative Medical decision making narrative: 87-year-old male presenting with generalized weakness. He had some falls at home but there is no history of him hitting his head. He is generally weak and has no specific complaints otherwise. Obtained a CBC, CMP, high-sensitivity troponin, BNP to rule out cardiac etiology. Chest x-ray will be obtained to rule out pneumonia versus CHF. CT brain will be obtained due to the history of falls recently the patient is on Xarelto. Patient is not on any blood thinners currently per family. CBC shows a normal white blood cell count 9.3. Hemoglobin 13. Platelets 171. Creatinine 1.70 which is slightly higher. Electrolytes unremarkable. His LFTs show his bilirubin is a little bit elevated but this is not new. Chest x-ray on my interpretation shows central venous congestion. The radiologist interprets this as possible pneumomediastinum. Recommended CT which was performed. Patient had a CT of the chest which showed interstitial edema consistent with CHF. CT of the brain was noted to have a right subdural/subarachnoid hemorrhage. There is also what appears to be right to left herniation. There is some edema noted as well. I spoke with the [facility] transfer line who recommended transfer. I spoke with [facility] to arrange transport. I spoke with the family regarding the patient and likely would go to the OR at [facility]. Patient was given Kcentra as well. His vital signs have remained stable. He is still awake and alert. Impression: 1. Subdural hematoma 2. Subarachnoid hemorrhage 3. Altered mental status 4. CHF 5. Right intraparenchymal hemorrhage ? Lab Data Attestation: I reviewed the patient's lab results. Labs: Laboratory Results - last 24 hr 01/12/23 01/12/23 01/12/23 18:25 19:45 19:45 WBC 9.3 RBC 4.23 L Hgb 13.0 Hct 39.8 L MCV 94.1 H MCH 30.7 MCHC 32.7 RDW Std Deviation 50.6 H RDW Coeff of Radha 14.7 H Plt Count 171 MPV 9.2 Immature Gran % (Auto) 0.500 Neut % (Auto) 74.5 H Lymph % (Auto) 16.6 L [place] % (Auto) 7.8 Eos % (Auto) 0.4 Baso % (Auto) 0.2 Absolute Neuts (auto) 6.9 Absolute Lymphs (auto) 1.55 Nucleated RBC % 0 Sodium 134 L Potassium 4.0 Chloride 99 Carbon Dioxide 27.0 Anion Gap 8 BUN 28 H Creatinine 1.70 H Estim Creat Clear Calc 30.74 Est GFR (MDRD) Af Amer 49 L Est GFR (MDRD) Non-Af 41 L BUN/Creatinine Ratio 16.5 Glucose 103 Calcium 9.2 Total Bilirubin 1.90 H AST 22 ALT 34 Alkaline Phosphatase 147 H Troponin I High Sens 29 B-Natriuretic Peptide Total Protein 6.9 Albumin 3.0 L Globulin 3.9 Albumin/Globulin Ratio 0.8 L Urine Color Yellow Urine Clarity Clear Urine pH 7.0 Ur Specific [place] 1.005 Urine Protein Negative Urine Glucose (UA) Normal Urine Ketones Negative Urine Occult Blood Negative Urine Nitrite Negative Urine Bilirubin Negative Urine Urobilinogen Normal Ur Leukocyte Esterase Negative Urine RBC 0 SEEN Urine WBC 0 SEEN Ur Squamous Epith Cells 0 SEEN Urine Bacteria 0 SEEN Urine Mucus 0 SEEN 01/12/23 19:45 WBC RBC Hgb Hct MCV MCH MCHC RDW Std Deviation RDW Coeff of Radha Plt Count MPV Immature Gran % (Auto) Neut % (Auto) Lymph % (Auto) [place] % (Auto) Eos % (Auto) Baso % (Auto) Absolute Neuts (auto) Absolute Lymphs (auto) Nucleated RBC % Sodium Potassium Chloride Carbon Dioxide Anion Gap BUN Creatinine Estim Creat Clear Calc Est GFR (MDRD) Af Amer Est GFR (MDRD) Non-Af BUN/Creatinine Ratio Glucose Calcium Total Bilirubin AST ALT Alkaline Phosphatase Troponin I High Sens B-Natriuretic Peptide 238.5 H Total Protein Albumin Globulin Albumin/Globulin Ratio Urine Color Urine Clarity Urine pH Ur Specific [place] Urine Protein Urine Glucose (UA) Urine Ketones Urine Occult Blood Urine Nitrite Urine Bilirubin Urine Urobilinogen Ur Leukocyte Esterase Urine RBC Urine WBC Ur Squamous Epith Cells Urine Bacteria Urine Mucus Radiography Diagnostic Testing: Clinical Impression(s) from Imaging Studies Chest X-Ray 01/12/23 19:55 IMPRESSION: Questionable pneumomediastinum. Recommend chest CT without contrast for further evaluation. Cardiomegaly with central pulmonary venous congestion. Electronically Signed: Ben Lindo MD at 20:50 EDT , ADDENDUM: 01/12/23 2116 IMPRESSION: Questionable pneumomediastinum. Recommend chest CT without contrast for further evaluation. Cardiomegaly with central pulmonary venous congestion. N.B. : Ronn Burrows DO, confirmed on 01/12/2023 21:09:30 (ET) that the healthcare facility has received the radiology report. Electronically Signed: Ben Lindo MD at 20:50 EDT , Chest CT 01/12/23 21:02 IMPRESSION: Moderate cardiomegaly with minimal interstitial edema. Electronically Signed: Ben Lindo MD at 22:22 EDT , Brain CT 01/12/23 21:05 IMPRESSION: Acute 1 cm right hemispheric subdural hematoma with subarachnoid hemorrhage. There is also right parietal intraparenchymal hemorrhage as well as right parietal encephalomalacia. Cannot rule out hemorrhagic conversion of a neoplasm. Recommend brain MRI with and without contrast. 2 mm right to left subfalcine herniation. Diffuse cerebral edema in the right cerebral hemisphere. Chronic involutional and ischemic changes of the brain. Chronic left maxillary sinusitis. Electronically Signed: Ben Lindo MD at 22:17 EDT , ADDENDUM: 01/12/237 IMPRESSION: Acute 1 cm right hemispheric subdural hematoma with subarachnoid hemorrhage. There is also right parietal intraparenchymal hemorrhage as well as right parietal encephalomalacia. Cannot rule out hemorrhagic conversion of a neoplasm. Recommend brain MRI with and without contrast. 2 mm right to left subfalcine herniation. Diffuse cerebral edema in the right cerebral hemisphere. Chronic involutional and ischemic changes of the brain. Chronic left maxillary sinusitis. N.B. : Ronn Burrows DO, confirmed on 01/12/2023 22:41:03 (ET) that the healthcare facility has received the radiology report. Electronically Signed: Ben Lindo MD at 22:17 EDT , Critical Care Time Critical Care Time: Yes Critical care time (excluding procedures): 30-74 minutes (34), Including time spent:, Discussing w/Patient &/or Family/Controller Instructor, Discussing w/Consultants, Arranging Admission or Transfer and Performing Direct Patient Care at Bedside Discharge Plan Triage Chief Complaint: Weakness ED Provider: Ronn Burrows Dx/Rx/DC Orders Prescriptions: No Action Adult 50 Plus Probiotic 4 billion cell capsule 4,000 mmu cells PO DAILY Rx Instructions: administer with a meal muztnhsk-olz-HC-lycopen-lutein 1 EACH tablet 1 tab PO DAILY Label Comments: MULTIVITAMIN furosemide 40 mg Tablet 40 mg PO DAILY 30 Days Qty: 30 0RF metolazone 2.5 mg Tablet 2.5 mg PO Mo@0600 Qty: 0 0RF acetaminophen 500 mg Tablet 1,000 mg PO Q6H PRN PRN (Reason: Pain Score 1-10) Qty: 0 0RF potassium chloride [Klor-Con M20] 20 mEq Tablet,Er Particles/Crystals 20 meq PO BIDCM 30 Days Qty: 60 0RF tamsulosin 0.4 mg Capsule 0.4 mg PO DAILY@1730 30 Days Qty: 30 0RF aspirin 81 mg Tablet 81 mg PO DAILY lovastatin 40 mg tablet 40 mg PO QHS Qty: 90 3RF rivaroxaban 15 mg tablet 15 mg PO DAILY Qty: 90 3RF Primary Care Provider: Enrique Kennedy Referrals: Enrique Kennedy MD [Primary Care Provider] - Disposition Disposition: Acute Care Hospital Discharge Location: [facility] Discharge Date/Time: 01/12/23 22:47
[2023-01-12 21:52] VITALS: BP 122/61; PULSE 79; RESP 19; O2SAT 96
[2023-01-12 21:57] VITALS: BP 120/63; PULSE 120; RESP 24; O2SAT 96
[2023-01-12 22:06] VITALS: BP 132/73; PULSE 104; RESP 18; O2SAT 97
--- NOTE | 2023-01-12 22:12 | ED.RN ---
[facility] called [facility] 10-15 mins
[2023-01-12] MEDS: HUMAN PROTHROMBIN COMPLX(PCC) 4,000 UNIT in Viaflex Bag 1 BAG 500 UNIT IV (22:29)
[2023-01-12 22:33] VITALS: PULSE 72; RESP 33; O2SAT 96
== END 2023-01-12 22:47 | disposition short-term general hospital (02) ==
PROVIDERS: Emergency Provider Student in an Organized Health Care Education/Training Program; PCP Family Medicine; Visit Provider Student in an Organized Health Care Education/Training Program
DX: I60.9 Nontraumatic subarachnoid hemorrhage, unspecified (principal); I50.9 Heart failure, unspecified; I13.0 Hypertensive heart and chronic kidney disease with heart failure and stage 1 through stage 4 chronic kidney disease, or unspecified chronic kidney disease; I48.0 Paroxysmal atrial fibrillation; I62.00 Nontraumatic subdural hemorrhage, unspecified; I61.9 Nontraumatic intracerebral hemorrhage, unspecified; E78.5 Hyperlipidemia, unspecified; I25.10 Atherosclerotic heart disease of native coronary artery without angina pectoris; R41.82 Altered mental status, unspecified; Z79.899 Other long term (current) drug therapy; Z90.49 Acquired absence of other specified parts of digestive tract; Z95.0 Presence of cardiac pacemaker
CPT/HCPCS: 70450; 71045; 71250; 80053; 81001; 83880; 84484; 85025; 93005; 99285; J7168; A4216

== ENCOUNTER 2023-01-20 18:31 | Inpatient (IN) | payer MEDICARE, SELFPAY ==
[2023-01-20 18:40] VITALS: BP 105/57; PULSE 73; RESP 18; TEMP 36.6; O2SAT 95; BMI 29.0
[2023-01-20 18:43] VITALS: BMI 29.0
[2023-01-20] MEDS: Atorvastatin Calcium 10 MG Tablet PO (20:59)
[2023-01-20] MEDS: Senna/Docusate Sodium 1 Tablet 2 TABLET PO (20:59)
[2023-01-20] MEDS: Acetaminophen 500 MG Tablet 1000 MG PO (21:25)
[2023-01-20 21:55] VITALS: BP 101/53; PULSE 70; RESP 16; TEMP 36.4; O2SAT 97
[2023-01-21 05:50] LABS: Absolute Lymphocyte Count 1.36 X10^3/uL (0.83-4.51); Absolute Neutrophil Count 4.1 X10^3/uL (2.0-7.7); Basophil# 0.02 X10^3/uL; Basophil% 0.3 % (0-1); Eosinophil# 0.05 X10^3/uL; Eosinophils% 0.8 % (0-5); Hematocrit 36.8 % (40-54); Lymphocyte # 1.36 X10^3/ul (0.83-4.51); Lymphocyte % 23.1 % (19-41); Mean Corp Hgb Conc 32.6 g/dL (32-36); Mean Corpuscular Volume 95.1 fL (80-94); Mean Platelet Vol. 8.6 fl (6.2-12.0); Monocyte# 0.39 X10^3/uL; Monocyte% 6.6 % (0-10); NRBC Flagged by Analyzer 0 % (0-5); Neutrophil # 4.07 X10^3/uL (2.7-7.7); Platelet Count 155 K/mm3 (150-450); RBC Distribution Width CV 15.1 % (11.6-14.6); RBC Distribution Width SD 52.2 fl (35.1-43.9); Red Blood Count 3.87 M/mm3 (4.6-6.2); White Blood Count 5.9 K/mm3 (4.4-11.0)
[2023-01-21 06:30] LABS: ALB/GLOB Ratio 0.8 RATIO (0.9-2.4); AST(SGOT) 31 U/L (15-37); Alanine Aminotransfer ALT/SGPT 31 U/L (16-61); Albumin, Serum 2.7 g/dL (3.2-5.0); Alkaline Phosphatase 151 U/L (45-117); Anion Gap 7 (5-15); BUN 20 mg/dL (7-18); BUN/Creat Ratio 16.5 RATIO (10-20); Calcium,Total 9.1 mg/dL (8.5-10.1); Chloride 115 mmol/L (98-107); Creatinine, Serum 1.21 mg/dL (0.70-1.30); EST Glomerular Filtration Rate 61 mL/min (>60); Est Glom Filt Rate - Afr Amer 73 mL/min (>60); Estimated Creatinine Clearance 43.18 ml/min; Globulin 3.3 g/dL (2.2-4.2); Glucose 83 mg/dL (74-106); Magnesium 2.5 mg/dL (1.6-2.6); Phosphorus 3.1 mg/dL (2.5-4.9); Sodium Level 145 mmol/L (136-145)
--- NOTE | 2023-01-21 07:10 | NURSING ---
Addendum entered by Yesenia Hansen 01/21/23 09:06: 0720 Dr. Caruso texted about situation, arrived to floor, and notified. New order for orthostatic VS. Original Note: Pt placed phone manager light. pt requests to use restroom. d/t no previous therapy assessment pt was transferred x2 with gait belt to BSC, while sitting on BSC pt noted to become unresponsive. pt noted with respirations even and eyes rolled back in to head, no verbal response from pt, tremors noted to b\l arms, trunk became flaccid. Pt was assisted back to bed x3 assist. Pt repositioned in bed. Pt is responsive to nurse. Pt states, I'm here. pt alert and oriented x3. rashaun care provided, pt request pt placed on bed weber with HOB elevated. Bed alarm phone manager light within reach. will monitor pt.
[2023-01-21 07:12] VITALS: BP 119/71; PULSE 109; RESP 18; O2SAT 95
[2023-01-21 09:40] VITALS: BP 111/59; PULSE 82; RESP 16; TEMP 36.6; O2SAT 93
[2023-01-21 10:00] VITALS: BP 118/62; BP 154/80; PULSE 72; PULSE 77
[2023-01-21] MEDS: Potassium Chloride Oral Tablet 20 MEQ PO (10:01)
[2023-01-21] MEDS: Acetaminophen 500 MG Tablet 1000 MG PO (10:01)
[2023-01-21] MEDS: Furosemide 80 MG Tablet PO (10:02)
[2023-01-21] MEDS: Senna/Docusate Sodium 1 Tablet 2 TABLET PO ×2 (10:02→20:09)
--- NOTE | 2023-01-21 10:44 | EX.PCM.HP.RE ---
HPI - General General Date of Admission: 01/20/23 Date of Service: 01/21/23 Chief Complaint: Debility due to SAH. HPI Narrative ROBERTO ALAS, is a 87 YO M with a PMH of PAF, PM implantation, CAD, hx of CABG, diastolic CHF with preserved EF, hypertension, AV [place] ablation, chronic anticoagulation with rivaroxaban, isolated elevated bili, BPH, secondary pulmonary hypertension and hyperlipidemia who presented to the ED at [facility] on 01/12/23 c/o generalized weakness. He had fallen at home 5 times. He denied hitting his head. He was having trouble getting around and his family thought he needed more rehab/TCU. He was taking ASA and Xarelto. He had just been discharged from TCU on 12/31/2022 where he was being treated for debility due to streptococcal sepsis. Noncontrast CT brain showed a 1 cm right hemispheric subdural hematoma with subarachnoid hemorrhage. There was also right parietal intraparenchymal hemorrhage as well as right parietal encephalomalacia. There was 2 mm right to left subfalcine herniation and diffuse cerebral edema in the right cerebral hemisphere. He was given Kcentra and transferred to [facility] to be evaluated for possible surgery. At [facility] the CT head was repeated and it showed a right parietal intraparenchymal hemorrhage measuring 3.6 cm (he 3.4 at [facility]), right convexity subdural hematoma of 9 mm (7 mm at [facility]) a trace subarachnoid hemorrhage and intraventricular hemorrhage in the left lateral ventricle and a 5 to 6 mm rightward midline shift. CTA showed no underlying vascular lesion. Aspirin and Xarelto were placed on hold and he was started on Keppra for seizure prophylaxis. Neurosurgery was consulted and did not recommend operative intervention. While in the emergency room at [facility] he was found to have a new oxygen requirement and chest x-ray showed a multifocal pneumonia. He was started on antibiotics. He also required pressor support for low blood pressure. While at [facility] he was seen by PT/OT/ST. He was found to have dysphagia ad was placed on thickened liquids. Therapy recommended acute rehab post DC from [facility]. Leonard was transferred to the acute inpt rehab unit at [facility] on 01/20/23 for 3 hours of therapy daily to restore function/independence to allow him to return home at [place] from rehab. [facility] Medical History (Updated 01/22/23 @ 10:[address] Chantal Caruso DO) Accelerated junctional rhythm (03/23/21) Atherosclerosis of coronary artery of [place] heart without angina pectoris Bacteremia Carotid bruit Cellulitis Chronic diastolic heart failure Chronic renal insufficiency History of complete heart block Hyperbilirubinemia Paroxysmal atrial fibrillation Prostate enlargement Secondary pulmonary arterial hypertension Home Medications lovastatin 40 mg tablet 40 mg PO QHS heart disease #90 tabs 09/17/22 [Rx Last Taken 12/14/22] acetaminophen 500 mg tablet 1,000 mg PO Q6H PRN PRN Pain Score 1-10 #0 tabs 12/29/22 [Rx Last Taken Unknown] furosemide 40 mg tablet 80 mg PO DAILY Diuretic 01/20/23 [History Last Taken Unknown] metolazone 2.5 mg tablet 2.5 mg PO Mo@0600 Diuretic 01/20/23 [History Last Taken Unknown] potassium chloride 20 mEq tablet,extended release(part/cryst) (Klor-Con M) 20 meq PO BIDCM supplement 01/20/23 [History Last Taken Unknown] tamsulosin 0.4 mg capsule 0.4 mg PO DAILY@1730 Urinary Retention 01/20/23 [History Last Taken Unknown] Allergy/AdvReac Type Severity Reaction Status Date / Time spironolactone AdvReac Elevated Verified 01/12/23 18:31 Potassium Family History Mother CAD (coronary artery disease) Brother CAD (coronary artery disease) Surgical History (Updated 01/22/23 @ 10:[address] 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) Hx of cholecystectomy Social History household members: spouse Smoking Status: Never smoker alcohol intake: never substance use type: does not use caffeine: Yes Type: coffee Number of servings: 1 what type of physical activity do you participate in: none seatbelt use: always do you feel safe at home: Yes ROS Constitutional Constitutional: Reports anorexia, fatigue and weakness; Denies change in weight, chills, fever(s) or night sweats Eyes Eyes: Denies blurry vision, change in vision, eye pain or loss of vision ENT HEENT: Reports dysphagia; Denies abnormal hearing, headache(s), hearing loss, nasal congestion or sore throat Cardiovascular Cardiovascular: Reports lightheadedness; Denies chest pain, dyspnea on exertion, edema, orthopnea, palpitations, paroxysmal nocturnal dyspnea or syncope Respiratory/Chest Respiratory/Chest: Reports other Details: Rare cough which is not new. ; Denies cough, dyspnea, shortness of breath at rest, shortness of breath with exertion or wheezing Gastrointestinal Gastrointestinal: Denies abdominal pain, constipation, diarrhea, dyspepsia, hematemesis, hematochezia, nausea or vomiting Genitourinary Genitourinary: Reports other Details: Had a Mak while at [facility] ; Denies dysuria, hematuria, nocturia, urinary frequency, urinary hesitancy, urinary incontinence or urinary urgency Musculoskeletal Musculoskeletal: Denies back pain, joint pain, joint swelling or neck pain Integumentary Integumentary: Reports dry skin and other Details: Many bruises ; Denies jaundice Neurologic Neurologic: Reports dizziness, weakness and other Details: Unable to stand at this time and had syncope while on the bedside commode. Became alert when he was laid in the bed. Alert and appropriate. Orthostatics were + when he sat up and his MM are very dry. ; Denies confusion, disequilibrium, focal weakness, headache(s), paresthesias, seizures or tremor(s) Psychiatric Psychiatric: Denies anxiety, depression, homicidal ideation or suicidal ideation Endocrine Endocrinology: Denies change in body appearance, polydipsia or polyuria Hematologic/Lymphatic Hematologic/Lymphatic: Reports easy bleeding and easy bruising; Denies lymphadenopathy Allergic/Immunologic Allergic/Immunologic: Denies rhinitis, eczemia or asthma Vital Signs Vital Signs Vital Signs: 01/20/23 18:40 01/20/23 21:47 01/20/23 21:55 Temperature 97.8 F 97.5 F L Temperature Source Temporal Temporal Pulse Rate 73 70 Respiratory Rate 18 16 Respiratory Effort Normal Respiratory Depth Normal Respiratory Pattern Normal Blood Pressure 105/57 L 101/53 L Blood Pressure Mean 73 69 Blood Pressure Source Monitor Monitor Blood Pressure Position Semi-Fowlers Semi-Fowlers Blood Pressure Location Left Forearm Left Arm Pulse Ox 95 97 Oxygen Delivery Method Room Air Room Air Room Air 01/21/23 07:12 01/21/23 09:40 Temperature 98 F Temperature Source Temporal Pulse Rate 109 H 82 Respiratory Rate 18 16 Respiratory Effort Respiratory Depth Respiratory Pattern Blood Pressure 119/71 111/59 L Blood Pressure Mean 87 76 Blood Pressure Source Monitor Monitor Blood Pressure Position Supine Semi-Fowlers Blood Pressure Location Right Arm Left Arm Pulse Ox 95 93 Oxygen Delivery Method Room Air Room Air Weight Weight: 191 lb 2.252 oz Body Mass Index (BMI) 29.0 Indicators for Scoring Admitted with or Primary Diagnosis of CVA/Stroke: Yes Hx of CVA/Stroke: Yes Modified [place] Score MRS Score at time of Evaluation: 5-Severe disability NIHSS NIHSS 1a. Level of Consciousness: Not alert; (drowsy but, can arouse) 1b. LOC Questions: Answers BOTH questions correctly. 1c. LOC Commands: Performs both tasks correctly. 2. Best Gaze: Normal 3. Visual: Complete hemianopia (R medial and left lateral) 4. Facial Palsy: Normal symmetrical movements 5a. Left Arm: No drift; arm holds 90 (or 45) degrees for full 10 seconds 5b. Right Arm: No drift; arm holds 90 (or 45) degrees for full 10 seconds 6a. Left Leg: No drift; leg holds 30-degree position for full 5 seconds 6b. Right Leg: No drift; leg holds 30-degree position for full 5 seconds 7. Limb Ataxia: Absent 8. Sensory: Normal; no sensory loss 9. Best Language: No aphasia; normal 10. Dysarthria: Normal 11. Extinction and Inattention: No abnormality Total: 3 Stroke Questions Stroke Team Activated: No Physical Exam Const alert and oriented x3 Constitutional Narrative: Looks very sleepy and had a hard time keeping his eyes open. Tells me that he has not sleeping well and that he is anxious about being in rehab. Able to follow commands. General Appearance: cooperative HEENT normocephalic and head/scalp atraumatic HEENT Narrative: He c/o being thirsty. He is currently on thickened liquids. Mouth: dry mucous membranes Eyes PERRL and EOMs intact bilaterally Neck No nuchal rigidity, No nodes and no carotid bruits Resp Resp Narrative: Coarse crackles in the bases posteriorly but, cleared significantly after a few deep breaths. No wheezes. Not tachypneic and no labored breathing. Cardio regular rate, regular rhythm, no murmurs, no rub and no gallops Cardio Narrative: distant heart sounds. No ectopy. GI normal to inspection, nondistended, normoactive bowel sounds, soft to palpation and non-tender GI Narrative: No guarding with palpation. Extremity no calf tenderness Extremity Narrative: Both feet are warm with intact sensation. General Extremity: Negative for clubbing or edema Skin no jaundice Skin Narrative: Many bruises in various stages of resolution. Rashes: no rashes Neuro CN's II-XII intact bilaterally, no focal motor deficits and no sensory deficits noted Neuro Narrative: No extinction and no neglect. Coordination / Balance: [id number] test normal and [id number] test normal Speech: speech normal Psych thought process normal and cooperative Psych Narrative: Flat affect and not making good eye contact but, he is very tired. Appearance: appropriate Attitude: No agitated Results Lab / Micro Data Result Diagrams: 01/21/23 05:40 01/21/23 05:40 Labs: Laboratory Results - last 24 hr 01/21/23 05:40: WBC 5.9, RBC 3.87 L, Hgb 12.0 L, Hct 36.8 L, MCV 95.1 H, MCH 31.0, MCHC 32.6, RDW Std Deviation 52.2 H, RDW Coeff of Radha 15.1 H, Plt Count 155, MPV 8.6, Immature Gran % (Auto) 0.200, Neut % (Auto) 69.0, Lymph % (Auto) 23.1, [place] % (Auto) 6.6, Eos % (Auto) 0.8, Baso % (Auto) 0.3, Absolute Neuts (auto) 4.1, Absolute Lymphs (auto) 1.36, Nucleated RBC % 0 01/21/23 05:40: Sodium 145, Potassium 4.0, Chloride 115 H, Carbon Dioxide 23.0, Anion Gap 7, BUN 20 H, Creatinine 1.21, Estim Creat Clear Calc 43.18, Est GFR (MDRD) Af Amer 73, Est GFR (MDRD) Non-Af 61, BUN/Creatinine Ratio 16.5, Glucose 83, Calcium 9.1, Phosphorus 3.1, Magnesium 2.5, Total Bilirubin 1.60 H, AST 31, ALT 31, Alkaline Phosphatase 151 H, Total Protein 6.0 L, Albumin 2.7 L, Globulin 3.3, Albumin/Globulin Ratio 0.8 L Assessment & Plan Assessment/Plan (1) Debility: (2) Hemorrhagic cerebrovascular accident (CVA): (3) Subdural hematoma: (4) Subarachnoid hemorrhage: (5) Encephalomalacia: (6) Dysphagia: (7) Left-sided neglect: (8) Generalized weakness: (9) Orthostatic hypotension: (10) Dehydration: (11) Macrocytic anemia: (12) Chronic kidney disease, stage 3b: (13) Hyperlipidemia: (14) Coronary artery disease: (15) Atrial fibrillation: (16) History of placement of leadless cardiac pacemaker: (17) Secondary pulmonary arterial hypertension: (18) Essential (primary) hypertension: (19) Restrictive airway disease: (20) Obesity: (21) assisted current use of anticoagulant: PLAN: On hold at present due to intracerebral bleed. (22) History of complete heart block: PLAN: Plan PLAN PT for gait stability OT for ADL's ST for evaluation Analgesics as needed Bowel protocol Fall precautions Assess for Anxiety/Depression GI prophylaxis - not at this time. No N/V/abd pain DVT prophylaxis with SCDs and ANNE neely Follow up with PCP, neurology, cardiology following DC from [facility] Re[facility] AM lab including CMP, CBC, Mag and Phos was personally reviewed. Hold Lasix for 1-2 days and then restart PRN for increases in weight. IV LR 1 liter at 60 cc/hr Repeat orthostatic vital signs in the a.m. Start Remeron 7.5 mg nightly for insomnia and suspected depression. D/W the ST who knows him from his time on TCU and she feels he has Left side neglect. He could not find his tissues or his water on the left side when I examined him. No extinction. Charges/Coding Visit Charges Inpatient E&M: 13204 Init Hosp L3
[2023-01-21] MEDS: Lactated Ringers 1,000 ML 60 ML IV (16:46)
[2023-01-21] MEDS: Tamsulosin HCl 0.4 MG Capsule PO (16:52)
[2023-01-21] MEDS: Atorvastatin Calcium 10 MG Tablet PO (20:09)
[2023-01-21] MEDS: Mirtazapine 15 MG Tablet 7.5 MG PO (20:09)
[2023-01-21] MEDS: Menthol/Lanolin/Calamine/Znox 113 GM Tube 1 APPLIC TOPICAL (20:32)
[2023-01-21 22:00] VITALS: BP 126/65; PULSE 69; RESP 17; TEMP 36.6; O2SAT 100
--- NOTE | 2023-01-22 03:56 | NURSING ---
Reviewed and agree with Ewa ADAMES, documentation and assessment charting.
[2023-01-22 07:28] VITALS: BP 112/73; PULSE 71; RESP 16; TEMP 36.7; O2SAT 95
[2023-01-22] MEDS: Menthol/Lanolin/Calamine/Znox 113 GM Tube 1 APPLIC TOPICAL ×2 (08:36→21:00)
[2023-01-22] MEDS: Nystatin Powder 15gm Bottle 1 APPLIC TOPICAL ×2 (08:36→20:59)
[2023-01-22] MEDS: NYSTATIN 500,000 UNIT/5 ML UDC 500000 UNIT PO ×4 (08:38→20:58)
[2023-01-22] MEDS: Potassium Chloride Oral Tablet 20 MEQ PO (08:38)
[2023-01-22 10:20] VITALS: BP 112/64; BP 133/68; PULSE 68; PULSE 69
--- NOTE | 2023-01-22 10:25 | REHABEVAL_ITS ---
Admission Information Primary Diagnosis:: Sickle debility secondary to hemorrhagic CVA, subdural hematoma, subarachnoid hemorrhage and encephalomalacia in the right parietal lobe. Status Changes from Prescreening?: No changes Identified Actual Problem List:: Aspiration, Falls, Depression, Alteration in Sleep, Alteration in Nutrition, Mobility Impaired, Self Care Deficit, BP, Hypotension, Fluid Change-Dehydration and Alteration-Leisure Activ. Potential Problem List:: DVT, Bleeding, Infection, UTI, Aspiration, Falls, Skin Integrity and Depression Risk of Complications DVT: ANNE Anne Bleeding: Monitor Lab Values, Nursing to Teach Precautions for anti-coagulation therapy., Wound, if applicable, to be assessed every shift. and Stroke patients assessed for lethargy or change in status. Infection: Clinical Staff to Monitor for S/S of infection: and S/S of infection include fever, redness, warmth, etc. Urinary Tract Infection: Monitor for frequency, burning, discomfort, or incontinence. and Nursing will obtain urine sample for urinalysis and C&S when ordered. Aspiration: Clinical staff will monitor for coughing, drooling, congestion., Speech will evaluate swallowing and dsyphasia. and Nursing will monitor patient swallowing during meals. Falls: Patient will be evaluated for Fall Precautions and Patient will be placed on Fall Precautions as indicated per protocol. Skin Breakdown: Nursing will assess skin daily using assessment tool. and Nursing will place on Skin Breakdown Precautions as indicated. Pain: Clinical staff will assess patient's pain level per protocol., Medications will be given, if needed, and the pain level reassessed. and Other methods: Massage, distraction, decrease stimulus, etc. used PRN. Plan of Care Patient requires physician specializing in physical medicine and rehab oversight to provide close medical supervision of rehab issues including: Pain Management, Sleep Problems, Bowel and Bladder, Medical and co-morbidity Management, DVT prophylaxis, Rehabilitation Leadership and Coordination of treatment team Patient needs Physical Therapy: For a minimum of 1 hour and At least 5 out of 7 days Patient needs Physical Therapy to improve:: Mobility, Strengthening, Transfers, Stretching, ROM, Endurance, Stairs, Gait and Balance Patient needs Occupational Therapy: For a minimum of 1 hour and At least 5 out of 7 days Patient needs Occupational Therapy to improve ADL's incl.: Eating, Grooming, Bathing, Dressing, Toileting, Toilet transfers, Community Reintegration, Higher functioning activities, Household tasks, Adaptive Equipment, Splinting and Other activities as determined Patient requires speech therapy: For a minimum of 1 hour and At least 5 out of 7 days Patient requires speech therapy for: Swallowing, Cognition, Language Skills and Compensatory Strategies Patient requires 24/ Rehabilitation Nursing for: Pain Issues, Identifying and preventing risk factors, Monitoring and reporting current medical conditions, Assisting with ambulation, transfer, and all ADL's, Teaching patients about disease process and medications, Family teaching, Providing safe environment, Bowel and Bladder Issues, Skin integrity and Medication Management Patient needs Spa Technician/ Case Management for: Discharge Planning, Arranging Home Equipment or Services and Family Interventions Patient needs Dietary and Nutrition Services for: Adequate Nutrition, N utritional Supplements and Nutritional Education Goals Patient will remain: free from falls and or injury at time of discharge. Patient will perform bed mobility at: MOD I level of assist. Patient will complete transfers from bed to chair at: - (Minimal assistance with least restrictive device) Patient will ambulate: 100 feet (With a wheeled walker at contact-guard assist), with LRD and - Patient will complete upper body dressing at: - (Minimal assistance) Patient will complete lower body dressing at: - (Moderate assistance with adaptive equipment as needed) Patient will complete toileting at: - (He will complete toilet transfer and toileting tasks at moderate assistance by discharge) Patient will perform bathing at: MOD I level of assist. Patient will complete grooming at: - (Supervision/set up) Patient will complete home management skills at: MOD I level of assist. Patient will achieve: - (1 curb step) Patient will have pain level of: of 3 or less Patient's skin will: remain intact Patient will receive: adequate nutrition. Discharge Planning Estimated Length of stay (days): 28 Anticipated D/C Destination: TBD Was Preadmission Assessment Accurate?: Yes
--- NOTE | 2023-01-22 11:35 | PCM.PROGNOTE ---
Subjective Subjective Afebrile VSS - still very orthostatic today. Had syncope when he stood, very brief, no fall, nursing and therapist supported him. Maintaining appropriate oxygen saturation on RA Oral intake is poor. He only took 240 cc oral yesterday but, he had a liter of LR. Urine output not accurate due to incontinence. Discussed with nursing - lightheaded. More alert today. They were able to get him up to a chair. He was confused last night. No agitation. Has stage 1 and 2 decubs on buttocks. Reviewed the PT/OT/ST notes Medication list reviewed. She c/o SOB but, this is a chronic complaint for him and he is know to have pulmonary HTN. He denies chest pain, palpitations, cough, nausea/vomiting/abdominal pain, dysuria and calf tenderness. He does complain of lightheadedness. Objective Data Objective Data Vital Signs: Vital Signs Temp Pulse Resp BP Pulse Ox O2 Del Method 98.1 F 69 16 112/64 95 Room Air 01/22/23 07:28 01/22/23 10:20 01/22/23 07:28 01/22/23 10:20 01/22/23 07:28 01/22/23 07:28 Oxygen Delivery Method Room Air Weight: 191 lb 2.252 oz Body Mass Index (BMI) 29.0 Intake & Output: Intake and Output for Last 24 Hours 01/20/23 01/21/23 01/22/23 23:59 23:59 23:59 Intake Total 240 / 240 1000 / 1000 Balance 240 / 240 1000 / 1000 Lab / Micro Data Result Diagrams: 01/21/23 05:40 01/21/23 05:40 Physical Exam Const Constitutional Narrative: More alert today than yesterday and he was able to sit up in the WC to go to therapy. He is confused. General Appearance: cooperative HEENT head/scalp atraumatic HEENT Narrative: MM are a little moist today.....better than yesterday. He has thrush. Eyes Eyes Narrative: He has left side neglect and he has hemianopia R medial and Left lateral visual bradford. No scleral icterus and no conjunctival injection. Neck supple Resp normal respiratory effort, normal air movement and clear to auscultation bilaterally Effort and Inspection: Negative for tachypneic or labored Cardio regular rate, regular rhythm and no gallops GI normal to inspection, nondistended, normoactive bowel sounds, soft to palpation and non-tender GI Narrative: No guarding with palpation. Extremity no calf tenderness General Extremity: Negative for edema Skin Rashes: no rashes Neuro Neuro Narrative: Left side weakness, L neglect, Left hemianopia. Sensation is intact. No ataxia and no extinction. Coordination / Balance: [id number]-[id number] test normal and [id number]-hq-[id number] test normal Psych Psych Narrative: flat depressed affect. Assessment & Plan Assessment/Plan (1) Debility: (2) Hemorrhagic cerebrovascular accident (CVA): (3) Subdural hematoma: (4) Subarachnoid hemorrhage: (5) Encephalomalacia: (6) Dysphagia: (7) Left-sided neglect: (8) Generalized weakness: (9) Orthostatic hypotension: (10) Dehydration: (11) Macrocytic anemia: (12) Chronic kidney disease, stage 3b: (13) Hyperlipidemia: (14) Coronary artery disease: (15) Atrial fibrillation: (16) History of placement of leadless cardiac pacemaker: (17) Secondary pulmonary arterial hypertension: (18) Essential (primary) hypertension: (19) Restrictive airway disease: (20) Obesity: (21) correction current use of anticoagulant: (22) History of complete heart block: (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 Continue therapy.......no standing until orthostasis resolves. 2. Continue to hold Lasix and hold Flomax also. He is not on any antihypertensives. Check a cortisol now and a TSH. 3. encourage fluids today......may need to give additional IV fluids. 4. Recheck the records from [facility].......was he on Dexamethasone at any time? Charges/Coding Visit Charges Inpatient E&M: 50646 Subs Hosp L2
[2023-01-22 12:42] LABS: Thyroid Stim Hormone (TSH) 3.52 uIU/mL (0.358-3.74)
[2023-01-22 19:09] VITALS: BP 100/54; PULSE 76; RESP 17; TEMP 36.3; O2SAT 99
[2023-01-22 20:00] VITALS: RESP 16; O2SAT 99
[2023-01-22] MEDS: Mirtazapine 15 MG Tablet 7.5 MG PO (20:59)
[2023-01-22] MEDS: Atorvastatin Calcium 10 MG Tablet PO (20:59)
[2023-01-22] MEDS: Senna/Docusate Sodium 1 Tablet 2 TABLET PO (21:00)
--- NOTE | 2023-01-23 01:46 | NURSING ---
BA was set off c/t pt trying to get legs over side of bed. Pt found to be confused in bed. Pt knew he was at [facility] but needed Emmanuelle to get him into the shower. Pt rambled on about showering and was grabbing at clothes, attempting to disrobe. Staff attempted to reorient. Repositioned pt in bed. Check and changed pt. Reoriented pt to time of day. Pt holding eyes closed. Pressure call light positioned on chest. Pt yells out for Help! despite being unable to articulate what his distress is after staff walks out of room. Staff returns to room to provide reassurance.
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
[2023-01-23 06:00] VITALS: BMI 29.1
[2023-01-23] MEDS: Cosyntropin 0.25 MG in 0.9% Normal Saline (Pres. free 1 ML 30 MG IV (06:00)
[2023-01-23] MEDS: 0.9% Saline Lock 10 ML Syringe IV ×2 (06:04→09:44)
[2023-01-23 07:08] VITALS: O2SAT 95
[2023-01-23 07:13] VITALS: BP 139/76; PULSE 69; RESP 15; TEMP 36.6; O2SAT 97
[2023-01-23] MEDS: Menthol/Lanolin/Calamine/Znox 113 GM Tube 1 APPLIC TOPICAL ×2 (09:13→22:12)
[2023-01-23] MEDS: NYSTATIN 500,000 UNIT/5 ML UDC 500000 UNIT PO ×4 (09:14→22:12)
[2023-01-23] MEDS: Senna/Docusate Sodium 1 Tablet 2 TABLET PO ×2 (09:14→22:12)
[2023-01-23] MEDS: Potassium Chloride Oral Tablet 20 MEQ PO (09:14)
[2023-01-23] MEDS: Nystatin Powder 15gm Bottle 1 APPLIC TOPICAL ×2 (09:14→22:12)
[2023-01-23] MEDS: Midodrine HCl 5 MG Tablet PO ×2 (11:55→17:17)
[2023-01-23 12:00] VITALS: BP 120/63; PULSE 70
--- NOTE | 2023-01-23 12:24 | NURSING ---
pt would only take 2 small bites of meal, even with staff assisting. pt refused to eat or drink anymore.
[2023-01-23 20:00] VITALS: BP 115/77; PULSE 68; RESP 16; TEMP 35.8; O2SAT 95
[2023-01-23] MEDS: Mirtazapine 15 MG Tablet 7.5 MG PO (22:12)
[2023-01-23] MEDS: Atorvastatin Calcium 10 MG Tablet PO (22:12)
[2023-01-24 05:24] VITALS: BMI 29.0
[2023-01-24 07:36] VITALS: BP 111/58; PULSE 70; RESP 16; TEMP 37.1; O2SAT 96
--- NOTE | 2023-01-24 08:53 | PN_ITS ---
Subjective Subjective afebrile VSS Maintaining appropriate oxygen saturation on RA Oral intake is poor. Only took 450 PO yesterday. Lasix has been on hold since Wednesday. Incontinent of urine so output is not accurate. Discussed with nursing - confused, nursing is having to feed him now. Did not do ST yesterday but did participate with cotreatment by PT/OT. Reviewed the PT/OT/ST notes Medication list reviewed. TSH was normal and Cortrosyn stimulation test was not consistent with adrenal insufficiency. He was started on midodrine 5 mg p.o. 3 times daily yesterday. We will check orthostatics today. Leonard was able to talk with me today and although he is confused at times he was appropriate and was able to answer questions. We discussed a feeding tube and he very definitely does not want that. We discussed a PEG and he was OK with that but, he does not want a tube in his nose. He denies FREITAS and also denies calf pain, nausea and abd pain. He is incontinent of urine but, he denies dysuria. He denies lightheadedness when he is lying at 30 degrees but, still getting lightheaded when he sits up. He is very weak but, still motivated to get better. Has been doing the Ceja water protocol but still has poor fluid intake. He is coughing at times. Weak cough. No change in SOB......it is status quo and chronic. Pulse ox drops at times when he is sleeping. When he is awake the pulse ox on RA is normal. Objective Data Objective Data Vital Signs: Vital Signs Temp Pulse Resp BP Pulse Ox O2 Del Method 98.8 F 70 16 111/58 L 96 Room Air 01/24/23 07:36 01/24/23 07:36 01/24/23 07:36 01/24/23 07:36 01/24/23 07:36 01/24/23 07:36 Oxygen Delivery Method Room Air Weight: 191 lb 9.307 oz Body Mass Index (BMI) 29.0 Intake & Output: Intake and Output for Last 24 Hours 01/22/23 01/23/23 01/24/23 23:59 23:59 23:59 Intake Total 1000 / 1000 541 / 541 Balance 1000 / 1000 541 / 541 Lab / Micro Data Result Diagrams: 01/24/23 09:20 01/24/23 09:20 Physical Exam Const Constitutional Narrative: He is very but appropriate with me unable to answer my questions. He appears very weak. General Appearance: cooperative HEENT head/scalp atraumatic Mouth: dry mucous membranes Neck supple Resp Resp Narrative: Poor inspiratory effort today but, he is lying on his side in bed. Occasional cough. Coarse crackles in the R base.....suspect atelectasis. He is not tachypneic and he is maintaining a appropriate O2 sat on RA. Breathing is not labored. Cardio regular rate, regular rhythm, no rub and no gallops GI normal to inspection, nondistended, normoactive bowel sounds, soft to palpation and non-tender GI Narrative: No guarding with palpation Extremity no calf tenderness General Extremity: Negative for edema Skin Rashes: no rashes Assessment & Plan Assessment/Plan (1) Debility: (2) Hemorrhagic cerebrovascular accident (CVA): (3) Subdural hematoma: (4) Subarachnoid hemorrhage: (5) Encephalomalacia: (6) Dysphagia: (7) Left-sided neglect: (8) Generalized weakness: (9) Orthostatic hypotension: (10) Dehydration: (11) Macrocytic anemia: (12) Chronic kidney disease, stage 3b: (13) Hyperlipidemia: (14) Coronary artery disease: (15) Atrial fibrillation: (16) History of placement of leadless cardiac pacemaker: (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 BMP, MG, PHOS, BNP and CBC with diff now 2. Start LR at 60 cc/hr 3. Will need to discuss with the family a feeding tube - 4. Check lying and sitting orthostatics today and daily for the next 2 days. 5. He is extremely weak and not even able to feed himself now. Taking only 25- 49% of meals and refusing some. Charges/Coding Visit Charges Inpatient E&M: 92430 Subs Hosp L2
[2023-01-24 08:55] VITALS: BP 101/62; BP 93/50; PULSE 70; PULSE 72
[2023-01-24] MEDS: Midodrine HCl 5 MG Tablet PO ×3 (08:59→17:08)
[2023-01-24] MEDS: Senna/Docusate Sodium 1 Tablet 2 TABLET PO ×2 (08:59→21:10)
[2023-01-24] MEDS: Potassium Chloride Oral Tablet 20 MEQ PO (09:00)
[2023-01-24] MEDS: Nystatin Powder 15gm Bottle 1 APPLIC TOPICAL ×2 (09:00→21:11)
[2023-01-24] MEDS: NYSTATIN 500,000 UNIT/5 ML UDC 500000 UNIT PO ×4 (09:00→21:10)
[2023-01-24] MEDS: Menthol/Lanolin/Calamine/Znox 113 GM Tube 1 APPLIC TOPICAL ×2 (09:00→21:10)
[2023-01-24] MEDS: 0.9% Saline Lock 10 ML Syringe IV (09:18)
[2023-01-24 09:32] LABS: Absolute Lymphocyte Count 1.55 X10^3/uL (0.83-4.51); Absolute Neutrophil Count 4.8 X10^3/uL (2.0-7.7); Basophil# 0.02 X10^3/uL; Basophil% 0.3 % (0-1); Eosinophil# 0.06 X10^3/uL; Eosinophils% 0.9 % (0-5); Hematocrit 41.1 % (40-54); Hemoglobin 13.4 g/dL (13.0-16.5); Lymphocyte # 1.55 X10^3/ul (0.83-4.51); Lymphocyte % 22.5 % (19-41); Mean Corp Hgb Conc 32.6 g/dL (32-36); Mean Corpuscular Hgb 30.9 pg (27.0-32.0); Mean Corpuscular Volume 94.9 fL (80-94); Mean Platelet Vol. 8.7 fl (6.2-12.0); Monocyte# 0.46 X10^3/uL; Monocyte% 6.7 % (0-10); NRBC Flagged by Analyzer 0 % (0-5); Neutrophil # 4.77 X10^3/uL (2.7-7.7); Neutrophil % 69.2 % (47-70); Platelet Count 160 K/mm3 (150-450); RBC Distribution Width CV 15.3 % (11.6-14.6); RBC Distribution Width SD 53.1 fl (35.1-43.9); Red Blood Count 4.33 M/mm3 (4.6-6.2); White Blood Count 6.9 K/mm3 (4.4-11.0)
[2023-01-24 09:45] LABS: Anion Gap 4 (5-15); BUN 18 mg/dL (7-18); BUN/Creat Ratio 13.8 RATIO (10-20); Calcium,Total 9.2 mg/dL (8.5-10.1); Chloride 113 mmol/L (98-107); EST Glomerular Filtration Rate 56 mL/min (>60); Est Glom Filt Rate - Afr Amer 67 mL/min (>60); Estimated Creatinine Clearance 40.19 ml/min; Glucose 104 mg/dL (74-106); Potassium 3.9 mmol/L (3.5-5.1); Sodium Level 144 mmol/L (136-145)
[2023-01-24 09:49] LABS: Magnesium 2.4 mg/dL (1.6-2.6); Phosphorus 2.3 mg/dL (2.5-4.9)
[2023-01-24] MEDS: Lactated Ringers 1,000 ML 60 ML IV (09:49)
[2023-01-24 09:56] LABS: BNP,B-Type NATRIURETIC PEPTIDE 158.4 pg/mL (0-100)
[2023-01-24 20:14] VITALS: BP 92/57; PULSE 71; RESP 16; TEMP 36.4; O2SAT 98
[2023-01-24 20:40] VITALS: PULSE 70; O2SAT 97
[2023-01-24] MEDS: Mirtazapine 15 MG Tablet 7.5 MG PO (21:10)
[2023-01-24] MEDS: Atorvastatin Calcium 10 MG Tablet PO (21:10)
[2023-01-24] MEDS: Acetaminophen 500 MG Tablet 1000 MG PO (21:10)
[2023-01-25] MEDS: Lactated Ringers 1,000 ML 60 ML IV (02:40)
[2023-01-25 05:19] VITALS: BMI 29.1
[2023-01-25] MEDS: Metolazone 2.5 MG Tablet PO (05:29)
[2023-01-25 05:30] VITALS: BP 125/73; BP 129/80; PULSE 83; PULSE 84
[2023-01-25 09:02] VITALS: O2SAT 97
[2023-01-25] MEDS: Midodrine HCl 5 MG Tablet PO ×3 (09:30→16:11)
[2023-01-25] MEDS: Potassium Chloride Oral Tablet 20 MEQ PO (09:30)
[2023-01-25] MEDS: Senna/Docusate Sodium 1 Tablet 2 TABLET PO ×2 (09:30→20:13)
[2023-01-25] MEDS: NYSTATIN 500,000 UNIT/5 ML UDC 500000 UNIT PO ×4 (09:30→20:13)
[2023-01-25] MEDS: Menthol/Lanolin/Calamine/Znox 113 GM Tube 1 APPLIC TOPICAL ×2 (09:42→20:12)
[2023-01-25] MEDS: Nystatin Powder 15gm Bottle 1 APPLIC TOPICAL ×2 (09:42→20:12)
[2023-01-25 10:00] VITALS: BP 129/80; PULSE 84; RESP 18; TEMP 36.4; O2SAT 95
--- NOTE | 2023-01-25 11:50 | PCM.PROGNOTE ---
Subjective Subjective Leonard was seen on team rounds today. His Emmanuelle and his sister and 2 brothers were present in the room and his daughter Sylvia participated by phone. All questions were answered to their satisfaction. Afebrile VSS-blood pressure has improved with hydration and this morning his blood pressure at 10 AM was 129/80 with a heart rate of 84. He is tilt negative today with a blood pressure of 129/80 lying down and 125/73 sitting up. Maintaining appropriate oxygen saturation on RA. Overnight trending pulse ox did not reveal any significant desaturations. Oral intake is better today. He was able to take 75 to 100% of his breakfast this morning. Fluid intake in the past 24 hours is 2240 cc. He has IV LR running at 60. Discussed with nursing - Did not sleep well again last night due to worrying about today's TEAM meeting. Reviewed the PT/OT/ST notes Medication list reviewed. Leonard denies lightheadedness while sitting up in the wheelchair today and was able to go to the therapy room to do therapy this morning. He feels bloated and gassy. Denies abd pain. Denies cough. He is tired after his therapy sessions today. He is able to stand and bear some wt with the Judi-lift. Objective Data Objective Data Vital Signs: Vital Signs Temp Pulse Resp BP Pulse Ox O2 Del Method O2 Flow Rate 97.5 F L 84 18 129/80 H 95 Room Air 0 01/25/23 10:00 01/25/23 10:00 01/25/23 10:00 01/25/23 10:00 01/25/23 10:00 01/25/23 10:00 01/24/23 20:40 FiO2 21 01/24/23 20:40 Oxygen Flow Rate (L/min) 0 Oxygen Delivery Method Room Air Weight: 192 lb 3.889 oz Body Mass Index (BMI) 29.1 Intake & Output: Intake and Output for Last 24 Hours 01/23/23 01/24/23 01/25/23 23:59 23:59 23:59 Intake Total 541 / 541 1020 / 1020 1220 / 1220 Balance 541 / 541 1020 / 1020 1220 / 1220 Lab / Micro Data Result Diagrams: 01/24/23 09:20 01/24/23 09:20 Physical Exam Const Constitutional Narrative: Much more alert today than yesterday. Able to participate in therapy. Speech is a little slurred. General Appearance: cooperative Resp normal respiratory effort and normal air movement Resp Narrative: He has minimal coarse crackles in the R base today, less than yesterday, and the left base is clear. No wheezes. Effort and Inspection: Negative for tachypneic or labored Cardio regular rate and regular rhythm Cardio Narrative: distant, no gallop appreciated. GI GI Narrative: The abd is soft and he denies any abd pain but, he feels gassy. He denies nausea and has had no vomiting. The abd is mildly distended and tympanic and there is no guarding with palpation. NL bowel sounds. No BM since 01/22 and he was incontinent of stool at that time. He is worried about not being able to get on the toilet. Extremity no calf tenderness General Extremity: Negative for edema Skin Rashes: no rashes Neuro Neuro Narrative: homonymous hemianopsia. Left side neglect. He has a masked facies and resting tremors of the R hand. To my knowledge he has never been diagnosed with PD. Psych Psych Narrative: flat, depressed affect. Assessment & Plan Assessment/Plan (1) Debility: (2) Hemorrhagic cerebrovascular accident (CVA): (3) Subdural hematoma: (4) Subarachnoid hemorrhage: (5) Encephalomalacia: (6) Dysphagia: (7) Left-sided neglect: (8) Generalized weakness: (9) Orthostatic hypotension: (10) Dehydration: (11) Macrocytic anemia: (12) Chronic kidney disease, stage 3b: (13) Hyperlipidemia: (14) Coronary artery disease: (15) Atrial fibrillation: (16) History of placement of leadless cardiac pacemaker: (17) Secondary pulmonary arterial hypertension: (18) Essential (primary) hypertension: (19) Restrictive airway disease: (20) Obesity: (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 Continue therapy 2. Decrease the IV rate to 40 cc/hr and continue until he is able to take adequate fluids by mouth. Continue to hold the Lasix. 3. Recheck a BMP in the AM 4. Orthostasis sitting has resolved with hydration and midodrine .......will continue 5. He is weak and slow but, very motivated to get better and now that the BP is better he is able to do therapy. 6. Increase Remeron to 15 mg p.o. at 9 PM nightly. Charges/Coding Visit Charges Inpatient E&M: 00960 Subs Hosp L2
--- NOTE | 2023-01-25 12:50 | CASEMGMT ---
Social Work IDT met with patient, , two brothers and sister, then dtr via conference call for Team meeting. Discussed patient's progress in PT/OT/ST/SN. Educated to [facility] insurance with [employer] 01/28 and continued stay is not guaranteed with each review. Pt's goal remains to DC home with . Pt will need to improve further and be more independent prior to home and medically stable. Will ReTeam weekly. SW to continue to follow for DC planning. Phyllis Vela, PRODUCT SAFETY TECHNICAL ASSISTANT ENTRY DRIVER OPERATOR
[2023-01-25] MEDS: Bisacodyl 10 MG Suppository RC (15:13)
[2023-01-25] MEDS: Lactated Ringers 1,000 ML 40 ML IV (19:07)
[2023-01-25 19:44] VITALS: BP 124/74; PULSE 70; RESP 16; TEMP 36.7; O2SAT 98
[2023-01-25] MEDS: Mirtazapine 15 MG Tablet PO (20:13)
[2023-01-25] MEDS: Atorvastatin Calcium 10 MG Tablet PO (20:13)
--- NOTE | 2023-01-26 02:40 | NURSING ---
Pt turned call light on and asked for help, this nurse went into patient's room, pt had both legs over the side rail, pt stated that he needed to get out of bed to desir the bears before they get us. Reoriented to place, told pt that he is in the hospital and there are no bears. Pt agitated at one point was shaking the bed rail. Spoke calmly to patient explaining where he was and that he is safe. POX checked at this time 95%. Incont of urine, rashaun care given and new attends applied, bed linens changed at this time, pt repositioned to left side. Pt calmed down somewhat and voiced understanding that he was in the hospital. Will continue to monitor.
[2023-01-26 05:12] VITALS: BMI 29.3
[2023-01-26 05:59] LABS: Anion Gap 4 (5-15); BUN 12 mg/dL (7-18); BUN/Creat Ratio 10.8 RATIO (10-20); Calcium,Total 8.8 mg/dL (8.5-10.1); Chloride 109 mmol/L (98-107); Creatinine, Serum 1.11 mg/dL (0.70-1.30); EST Glomerular Filtration Rate 67 mL/min (>60); Est Glom Filt Rate - Afr Amer 81 mL/min (>60); Estimated Creatinine Clearance 47.07 ml/min; Glucose 86 mg/dL (74-106); Potassium 3.5 mmol/L (3.5-5.1); Sodium Level 142 mmol/L (136-145)
[2023-01-26 06:00] VITALS: BP 141/70; BP 150/69; PULSE 69
[2023-01-26 07:49] VITALS: BP 141/70; PULSE 69; RESP 18; TEMP 36.9; O2SAT 96
[2023-01-26] MEDS: Senna/Docusate Sodium 1 Tablet 2 TABLET PO ×2 (07:54→20:16)
[2023-01-26] MEDS: Midodrine HCl 5 MG Tablet PO ×3 (07:54→16:01)
[2023-01-26] MEDS: Potassium Chloride Oral Tablet 20 MEQ PO ×2 (07:54→16:01)
[2023-01-26] MEDS: Menthol/Lanolin/Calamine/Znox 113 GM Tube 1 APPLIC TOPICAL ×2 (07:55→20:16)
[2023-01-26] MEDS: NYSTATIN 500,000 UNIT/5 ML UDC 500000 UNIT PO ×4 (07:55→20:16)
[2023-01-26] MEDS: Nystatin Powder 15gm Bottle 1 APPLIC TOPICAL ×2 (07:55→20:16)
--- NOTE | 2023-01-26 14:08 | PCM.PROGNOTE ---
Subjective Subjective Afebrile VSS-orthostatics today are negative and the blood pressure lying down was 141/70. Maintaining appropriate oxygen saturation on RA-pulse ox is in the high 90s. Oral intake is erratic. He took 25 to 49% of his breakfast this morning but had 50 to 74% of his lunch. He took 1020 in fluids orally yesterday. So far today has had 480. His weight today is 193.6 which is up from 191.6 on 01/24/2023 when he was severely dehydrated. Remains incontinent of both stool and urine. Last bowel movement was today. Discussed with nursing -nursing reports that Leonard only slept 2 to 3 hours last night secondary to confusion. He told them he thought there were bears in his room and he needed to get out of bed to desir them. He definitely has been since arriving on rehab. He is more tired today than yesterday. Reviewed the PT/OT/ST notes Medication list reviewed. All lab from this AM was personally reviewed. Leonard denies pain, cephalgia, shortness of breath, cough, palpitations, lightheadedness, nausea/vomiting/abdominal pain/diarrhea, dysuria and calf tenderness. He is feeling tired today. Objective Data Objective Data Vital Signs: Vital Signs Temp Pulse Resp BP Pulse Ox O2 Del Method O2 Flow Rate 98.5 F 69 18 141/70 H 96 Room Air 0 01/26/23 07:49 01/26/23 07:49 01/26/23 07:49 01/26/23 07:49 01/26/23 07:49 01/26/23 07:49 01/24/23 20:40 FiO2 21 01/24/23 20:40 Oxygen Flow Rate (L/min) 0 Oxygen Delivery Method Room Air Weight: 193 lb 9.054 oz Body Mass Index (BMI) 29.3 Intake & Output: Intake and Output for Last 24 Hours 01/24/23 01/25/23 01/26/23 23:59 23:59 23:59 Intake Total 1020 / 1020 2949.33 / 2949.33 480 / 480 Balance 1020 / 1020 2949.33 / 2949.33 480 / 480 Lab / Micro Data 02/08/23 05:36 02/08/23 05:36 Labs: Laboratory Results - last 24 hr 01/26/23 05:19: Sodium 142, Potassium 3.5, Chloride 109 H, Carbon Dioxide 29.0, Anion Gap 4 L, BUN 12, Creatinine 1.11, Estim Creat Clear Calc 47.07, Est GFR (MDRD) Af Amer 81, Est GFR (MDRD) Non-Af 67, BUN/Creatinine Ratio 10.8, Glucose 86, Calcium 8.8 Physical Exam Const alert and oriented x3 Constitutional Narrative: No confusion this AM. Looks tired today. General Appearance: cooperative HEENT Mouth: dry mucous membranes Resp normal respiratory effort, normal air movement and clear to auscultation bilaterally Effort and Inspection: Negative for tachypneic or labored Cardio regular rate, regular rhythm, no rub and no gallops Cardio Narrative: No ectopy GI normal to inspection, nondistended, normoactive bowel sounds, soft to palpation and non-tender Extremity no calf tenderness General Extremity: Negative for edema Skin Rashes: no rashes Assessment & Plan Assessment/Plan (1) PCT (porphyria cutanea tarda): (2) Debility: (3) Hemorrhagic cerebrovascular accident (CVA): (4) Subdural hematoma: (5) Subarachnoid hemorrhage: (6) Encephalomalacia: (7) Dysphagia: (8) Left-sided neglect: (9) Generalized weakness: (10) Orthostatic hypotension: (11) Macrocytic anemia: (12) Chronic kidney disease, stage 3b: (13) Hyperlipidemia: (14) Coronary artery disease: (15) Atrial fibrillation: (16) History of placement of leadless cardiac pacemaker: (17) Secondary pulmonary arterial hypertension: (18) Essential (primary) hypertension: (19) Restrictive airway disease: (20) Obesity: (21) History of complete heart block: (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 Continue therapy 2. Add Seroquel 25 mg at 8 PM nightly for sundowning/confusion/agitation. 3. Mixed Mycolog ointment with Calmoseptine and apply 3 times daily to the rash on the buttocks and in the groin and upper thigh. 4. Give a dose of supplemental potassium today. 5. DC the IV fluids after the current bag is infused and continue to monitor daily weights and intake. Charges/Coding Visit Charges Inpatient E&M: 29133 Subs Hosp L2
--- NOTE | 2023-01-26 15:59 | CHAPLAIN ---
Type of Pastoral Visit _x__ Initial Visit ___ Follow-up Visit ___ On-call Visit ___ General Patient Visit ___ Spiritual Assessment ___ Family Conference ___ Bereavement ___ Rapid Response ___ Code Blue ___ Other (describe below) Pastoral Care Referral From _x__ Patient ___ Family ___ Nurse ___ Physician ___ Quilt Sewer ___ Traffic Maintenance Supervisor ___ Other (describe below) Sacrament/Intervention _x__ Active listening ___ Anointing ___ Presybeterian ___ Bereavement ___ Communion ___ Sabina exploration ___ ___ Life review _x__ Prayer ___ Reconciliation ___ Sacrament of Sick _x__ Supportive presence ___ Wedding ___ Other (describe below) Pastoral Comments patient was welcoming and could answer questions when asked but did not engage in a conversation; however pt was determined to get his shirt off and repeatedly asked for help to take off shirt; pt would have been naked except for depends if his shirt was off; this fabric worker foreman declined help of removing clothes; offered calm presence and reassurance to patient; offered prayer as approved by patient;
[2023-01-26 19:20] VITALS: BP 123/70; PULSE 70; RESP 16; TEMP 36.2; O2SAT 96
[2023-01-26] MEDS: QUEtiapine 25 MG Tablet PO (19:59)
[2023-01-26] MEDS: Mirtazapine 15 MG Tablet PO (20:00)
[2023-01-26] MEDS: Atorvastatin Calcium 10 MG Tablet PO (20:15)
[2023-01-26] MEDS: Nystatin/Triamcin Oint 1 APPLIC TOPICAL (20:16)
[2023-01-26] MEDS: 0.9% Saline Lock 10 ML Syringe IV (20:17)
[2023-01-26 22:00] VITALS: PULSE 70; RESP 15; O2SAT 94
--- NOTE | 2023-01-27 02:02 | NURSING ---
Pt still restless and setting off call light. Pt attempts to remove hospital gown. Leg found over side of bed when staff get to room. Pt reoriented to time of day and place by staff, as well as repositioned to right side. Pt denies further needs at this time.
[2023-01-27] MEDS: Nystatin/Triamcin Oint 1 APPLIC TOPICAL ×3 (05:00→20:38)
[2023-01-27 06:00] VITALS: BMI 29.2
[2023-01-27] MEDS: NYSTATIN 500,000 UNIT/5 ML UDC 500000 UNIT PO ×4 (07:51→20:37)
[2023-01-27] MEDS: Midodrine HCl 5 MG Tablet PO ×3 (07:51→17:10)
[2023-01-27] MEDS: Potassium Chloride Oral Tablet 20 MEQ PO (07:51)
[2023-01-27] MEDS: Menthol/Lanolin/Calamine/Znox 113 GM Tube 1 APPLIC TOPICAL ×2 (07:57→20:39)
[2023-01-27] MEDS: Nystatin Powder 15gm Bottle 1 APPLIC TOPICAL ×2 (07:57→20:39)
[2023-01-27 08:07] VITALS: BP 118/59; PULSE 72; RESP 16; TEMP 36.2; O2SAT 97
--- NOTE | 2023-01-27 11:14 | NURSING ---
pt would not do therapy today
--- NOTE | 2023-01-27 12:21 | PCM.PROGNOTE ---
Subjective Subjective Afebrile VSS Maintaining appropriate oxygen saturation on RA Oral intake picking up. He took 900 p.o. yesterday and 120 overnight. He ate 75-100% of his breakfast today. Remains incontinent of both stool and urine. Weight is down approximately 1/2 pounds since yesterday. Unable to have accurate I&O due to urinary incontinence. Discussed with nursing - Slept poorly again last night. He received Seroquel 25 mg at 1999. He was confused and kept trying to get out of bed to go fishing. Reviewed the PT/OT/ST notes Medication list reviewed. Because he did not sleep last night he is very sleepy today and difficult to arouse. Nursing was instructed to get him up and keep him awake as much as possible so he will sleep tonight. I can not keep him awake long enough to do a ROS today. The only think he is c/o is being tired. Objective Data Objective Data Vital Signs: Vital Signs Temp Pulse Resp BP Pulse Ox O2 Del Method O2 Flow Rate 97.1 F L 72 16 118/59 L 97 Room Air 0 01/27/23 08:07 01/27/23 08:07 01/27/23 08:07 01/27/23 08:07 01/27/23 08:07 01/27/23 08:07 01/24/23 20:40 FiO2 21 01/24/23 20:40 Oxygen Flow Rate (L/min) 0 Oxygen Delivery Method Room Air Weight: 193 lb 1.999 oz Body Mass Index (BMI) 29.2 Intake & Output: Intake and Output for Last 24 Hours 01/25/23 01/26/23 01/27/23 23:59 23:59 23:59 Intake Total 2949.33 / 2949.33 1835.33 / 1835.33 120 / 120 Balance 2949.33 / 2949.33 1835.33 / 1835.33 120 / 120 Lab / Micro Data Result Diagrams: 01/28/23 11:14 01/28/23 11:14 Physical Exam Const Constitutional Narrative: Very drowsy and difficult to arouse. Did not sleep well again tonight. Does not appear to be in pain. HEENT Mouth: dry mucous membranes Neck supple Resp Resp Narrative: Not tachypneic and no labored breathing. Poor exchange in the bases.....not able to cooperate with my asking him to take deep breaths today. Not coughing and no apneic periods. Cardio regular rate, regular rhythm, no rub and no gallops Cardio Narrative: No ectopy.......I suspect he is completely paced. GI soft to palpation GI Narrative: No guarding. Mildly distended and tympanic. NL BS's. Soft. Extremity no calf tenderness General Extremity: Negative for edema Skin Rashes: no rashes Assessment & Plan Assessment/Plan (1) Debility: (2) Hemorrhagic cerebrovascular accident (CVA): (3) Subdural hematoma: (4) Subarachnoid hemorrhage: (5) Encephalomalacia: (6) Dysphagia: (7) Left-sided neglect: (8) Generalized weakness: (9) Orthostatic hypotension: (10) Dehydration: (11) Macrocytic anemia: (12) Chronic kidney disease, stage 3b: (13) Hyperlipidemia: (14) Coronary artery disease: (15) Atrial fibrillation: (16) History of placement of leadless cardiac pacemaker: (17) Secondary pulmonary arterial hypertension: (18) Essential (primary) hypertension: (19) Restrictive airway disease: (20) Obesity: (21) nursing home current use of anticoagulant: (22) History of complete heart block: (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 Continue therapy 2. Add melatonin to his drug regimen at night. 3. Recheck lab on Wednesday. 4. check a few more post void residuals since we stopped the Flomax due to severe orthostatic hypotension. Charges/Coding Visit Charges Inpatient E&M: 02346 Subs Hosp L2
[2023-01-27] MEDS: Ensure Plus High Protein 120 ML LIQUID PO (17:11)
[2023-01-27] MEDS: Mirtazapine 15 MG Tablet PO (20:36)
[2023-01-27] MEDS: Atorvastatin Calcium 10 MG Tablet PO (20:36)
[2023-01-27] MEDS: Senna/Docusate Sodium 1 Tablet 2 TABLET PO (20:36)
[2023-01-27] MEDS: QUEtiapine 25 MG Tablet PO (20:37)
[2023-01-27] MEDS: MELATONIN 3 MG TABLET PO (20:37)
[2023-01-27] MEDS: 0.9% Saline Lock 10 ML Syringe IV (20:37)
[2023-01-27 22:00] VITALS: BP 127/66; PULSE 70; PULSE 82; RESP 14; RESP 16; TEMP 36.6; O2SAT 99
[2023-01-28] VITALS (10 sets, daily range): BP systolic 78–145; BP diastolic 49–80; PULSE 71–99; RESP 16–18; TEMP 36.7–37.2; O2SAT 92–98; BMI 29.5
[2023-01-28] MEDS: Nystatin/Triamcin Oint 1 APPLIC TOPICAL ×3 (04:09→20:35)
--- NOTE | 2023-01-28 04:43 | NURSING ---
Patient was asleep when this nurse came on shift until about 9pm and then had been awake and confused as to why his was not here for the visit. Told patient she was here earlier and he was asleep. Patient had some repetitive call light requests and needed some encouragement as to what time of day it was and to get some rest. Patient fell asleep about 12 am and then awoke approximately every 2 hours with toileting needs or other requests.
[2023-01-28] MEDS: NYSTATIN 500,000 UNIT/5 ML UDC 500000 UNIT PO ×4 (07:57→20:35)
[2023-01-28] MEDS: Menthol/Lanolin/Calamine/Znox 113 GM Tube 1 APPLIC TOPICAL ×2 (07:57→20:34)
[2023-01-28] MEDS: Ensure Plus High Protein 120 ML LIQUID PO ×3 (07:57→17:44)
[2023-01-28] MEDS: Nystatin Powder 15gm Bottle 1 APPLIC TOPICAL ×2 (07:58→20:35)
[2023-01-28] MEDS: Potassium Chloride Oral Tablet 20 MEQ PO (07:58)
[2023-01-28] MEDS: Midodrine HCl 5 MG Tablet PO ×3 (08:00→17:44)
[2023-01-28] MEDS: Senna/Docusate Sodium 1 Tablet 2 TABLET PO ×2 (08:01→20:36)
--- NOTE | 2023-01-28 09:50 | PN_ITS ---
Subjective Subjective Afebrile VSS -blood pressures are dropping once again. Still within normal limits. Maintaining appropriate oxygen saturation on RA Oral intake is hit and miss. incontinent yesterday for large amounts. PVR today was less than 100 and he has been off Flomax because of orthostasis. Discussed with nursing - He slept most of the day yesterday. Does not sleep well at night. He is on Remeron, Melatonin and Seroquel at bedtime. Had syncope again while in the Judi-Lift and awoke as soon as he was laid down. Reviewed the PT/OT/ST notes - Not really able to do therapy for 3 hours. Medication list reviewed. Currently sitting up in the recliner and denies lightheadedness. Denies pain and also denies cough and SOB. No dysuria and no N/V/abd pain. No /FREITAS. He is alert and appropriate when I am in his room. Ate 25-49% of breakfast. Objective Data Objective Data Vital Signs: Vital Signs Temp Pulse Resp BP Pulse Ox O2 Del Method O2 Flow Rate 98.0 F 77 18 111/63 95 Room Air 0 01/28/23 07:23 01/28/23 07:23 01/28/23 07:23 01/28/23 07:23 01/28/23 07:23 01/28/23 07:23 01/24/23 20:40 FiO2 21 01/24/23 20:40 Oxygen Flow Rate (L/min) 0 Oxygen Delivery Method Room Air Weight: 194 lb 14.218 oz Body Mass Index (BMI) 29.5 Intake & Output: Intake and Output for Last 24 Hours 01/26/23 01/27/23 01/28/23 23:59 23:59 23:59 Intake Total 1835.33 / 1835.33 1080 / 1080 420 / 420 Balance 1835.33 / 1835.33 1080 / 1080 420 / 420 Lab / Micro Data Result Diagrams: 01/24/23 09:20 01/26/23 05:19 Physical Exam Const alert and no apparent distress Constitutional Narrative: Leaning to the left sitting in the recliner. I was standing on his left today talking to him and he looked at me when talking. General Appearance: cooperative HEENT Mouth: dry mucous membranes Eyes Eyes Narrative: EOMI Now he is scanning to the left and he was not able to do this with me at admission. Neck supple Resp normal air movement and clear to auscultation bilaterally Resp Narrative: Better air exchange today and he is able to take a deep breath when I ask. Effort and Inspection: Negative for tachypneic or labored Auscultation: Negative for rales, rhonchi or wheezes Cardio regular rate, regular rhythm and no gallops GI soft to palpation and non-tender GI Narrative: mild distention, denies pain. Passed a lot of gas this AM and now tells me he has to have a BM. Normal BS's. Soft with no guarding with palpation. Extremity no calf tenderness General Extremity: Negative for edema Skin Wound Narrative: Very dry skin, many actinic keratoses, delma on the forearms. No rashes. Neuro Speech: speech normal Motor Exam: general weakness Psych Psych Narrative: Confused at night. Appearance: appropriate Attitude: No agitated Assessment & Plan Assessment/Plan (1) Debility: (2) Hemorrhagic cerebrovascular accident (CVA): (3) Subdural hematoma: (4) Subarachnoid hemorrhage: (5) Encephalomalacia: (6) Dysphagia: (7) Left-sided neglect: (8) Generalized weakness: (9) Orthostatic hypotension: (10) Dehydration: (11) Macrocytic anemia: (12) Chronic kidney disease, stage 3b: (13) Hyperlipidemia: (14) Coronary artery disease: (15) Atrial fibrillation: (16) History of placement of leadless cardiac pacemaker: (17) Secondary pulmonary arterial hypertension: (18) Essential (primary) hypertension: (19) Restrictive airway disease: (20) Obesity: (21) nursing home current use of anticoagulant: (22) History of complete heart block: (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 CBC with diff, CMP, phos, UA now 2. Increase the Seroquel to 37.5 and get a EKG in the AM. Make every effort to try and keep him awake during the day. Continue Melatonin. 3. If no infection and no change in the [place] CTB and continues not to be able to do therapy for 3 hours will need to discuss transitioning patient to SNF/ECF. 4. NC CT brain. 5. I suspect we are going to need to reconsider restarting an IV and placing a PEG if the family wants to go that route. 6. Continue therapy Today he was able to do some therapy and he is alert. Will continue the Remeron and Melatonin and increase the Seroquel. I think if he could get enough sleep at night he would be more alert in the day. He may do better in an SNF because I think 3 hours a day may be too much for him. Charges/Coding Visit Charges Inpatient E&M: 17044 Subs Hosp L2
--- NOTE | 2023-01-28 10:04 | CT_ITS ---
HISTORY: Follow up on SDH''s/R ICH. TECHNIQUE: Multiple axial images were obtained of the head without intravenous contrast. A radiation dose optimization technique was used for this scan. 254 images. COMPARISON: 01/12/2023. FINDINGS: BRAIN PARENCHYMA: Right cerebral edema with sulcal effacement. Right parietal temporal lobe edema with decreased intraparenchymal hemorrhage. Chronic small vessel ischemic gliosis noted. CSF SPACES: 1.7 cm thick right subdural hematoma with intermediate density and decreased hyperdense components. 10 mm leftward midline shift, markedly increased from prior. Partial effacement of the basal cisterns, increased from prior. Increased effacement of the right lateral ventricle and increased dilatation of the left lateral ventricle. OTHER: Intact calvarium. Increased fluid and mucosal thickening in the left maxillary sinus with hyperostosis and internal calcification again noted. CT/Brain/Head without Contrast IMPRESSION: Increased size of right subdural hematoma with increased midline shift and herniation. Increased effacement of the right lateral ventricle with increased asymmetric hydrocephalus. Right subdural hematoma predominantly containing increased subacute hemorrhage with decreased component of acute hemorrhage. Decreased right parietal and temporal lobe hemorrhage with residual edema or infarct. Recommend follow-up. 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 Electronically Signed: Liz Rizoz MD at 11:36 EDT ,
[2023-01-28] MEDS: Bisacodyl 10 MG Suppository RC (10:23)
--- NOTE | 2023-01-28 11:08 | EKG12_ITS ---
Test Reason : WEAKNESS Blood Pressure : / mmHG Vent. Rate : 070 BPM Atrial Rate : 075 BPM P-R Int : 000 ms QRS Dur : 168 ms QT Int : 450 ms P-R-T Axes : 000 175 019 degrees QTc Int : 486 ms Ventricular-paced rhythm Abnormal ECG No previous ECGs available Confirmed by JOHN BRENNAN, VIGNESH ([id number]), business editor MAGY JAMES ([id number]) on 02/01/2023 2:41:08 PM Referred By: Chantal Caruso Confirmed By:VIGNESH LOPEZ MD
[2023-01-28 11:21] LABS: Absolute Lymphocyte Count 1.37 X10^3/uL (0.83-4.51); Absolute Neutrophil Count 5.2 X10^3/uL (2.0-7.7); Basophil# 0.02 X10^3/uL; Basophil% 0.3 % (0-1); Eosinophil# 0.06 X10^3/uL; Eosinophils% 0.8 % (0-5); Hematocrit 39.6 % (40-54); Lymphocyte # 1.37 X10^3/ul (0.83-4.51); Lymphocyte % 19.1 % (19-41); Mean Corp Hgb Conc 32.8 g/dL (32-36); Mean Corpuscular Hgb 30.7 pg (27.0-32.0); Mean Corpuscular Volume 93.4 fL (80-94); Monocyte# 0.51 X10^3/uL; Monocyte% 7.1 % (0-10); NRBC Flagged by Analyzer 0 % (0-5); Neutrophil # 5.17 X10^3/uL (2.7-7.7); Neutrophil % 72.3 % (47-70); Platelet Count 150 K/mm3 (150-450); RBC Distribution Width CV 15.9 % (11.6-14.6); RBC Distribution Width SD 53.7 fl (35.1-43.9); Red Blood Count 4.24 M/mm3 (4.6-6.2); White Blood Count 7.2 K/mm3 (4.4-11.0)
[2023-01-28 11:51] LABS: ALB/GLOB Ratio 0.9 RATIO (0.9-2.4); AST(SGOT) 28 U/L (15-37); Alanine Aminotransfer ALT/SGPT 23 U/L (16-61); Albumin, Serum 2.8 g/dL (3.2-5.0); Alkaline Phosphatase 158 U/L (45-117); Anion Gap 7 (5-15); BUN 14 mg/dL (7-18); BUN/Creat Ratio 10.6 RATIO (10-20); Calcium,Total 9.3 mg/dL (8.5-10.1); Chloride 106 mmol/L (98-107); Creatinine, Serum 1.32 mg/dL (0.70-1.30); EST Glomerular Filtration Rate 55 mL/min (>60); Est Glom Filt Rate - Afr Amer 66 mL/min (>60); Estimated Creatinine Clearance 39.58 ml/min; Globulin 3.2 g/dL (2.2-4.2); Glucose 131 mg/dL (74-106); Phosphorus 2.5 mg/dL (2.5-4.9); Potassium 3.9 mmol/L (3.5-5.1); Sodium Level 139 mmol/L (136-145)
[2023-01-28 11:59] LABS: Bacteria 0 SEEN /hpf (None Seen); Mucous, Urine 0 SEEN /hpf (<or=2+); Red Blood Cells-Urine 0 SEEN /hpf (0-5); Squamous Epithelial Cells - UA 0 SEEN /hpf (0-5); White Blood Cells 0 SEEN /hpf (0-5)
[2023-01-28 12:17] LABS: Color, Urine Yellow (Yellow); Glucose, Dipstick Normal (Normal); Ketone-Dipstick Negative (Negative); Leukocyte Esterase-Dipstick Negative /ul (Negative); Nitrite-Dipstick Negative (Negative); Occult Blood-Urine 25 /ul (Negative); Protein-Dipstick Negative (Negative); Specific Gravity, Urine 1.005 (1.002-1.030); Urine Bilirubin Dipstick Negative (Negative); Urine Clarity Clear (Clear); Urine Urobilinogen Normal (Normal)
[2023-01-28] MEDS: 0.9% Normal Saline 1,000 ML 60 ML IV (14:28)
[2023-01-28] MEDS: Mirtazapine 15 MG Tablet 7.5 MG PO (20:32)
[2023-01-28] MEDS: QUEtiapine 25 MG Tablet 37.5 MG PO (20:32)
[2023-01-28] MEDS: MELATONIN 3 MG TABLET PO (20:34)
[2023-01-28] MEDS: Atorvastatin Calcium 10 MG Tablet PO (20:34)
--- NOTE | 2023-01-28 21:19 | NURSING ---
Nursing Correspondence Coordinator in room to assist with blood admin. Bar code on product failing to scan after several attempts and phone call to blood bank.
--- NOTE | 2023-01-28 21:42 | NURSING ---
Blood admin started despite various and several attempts with Nursing Business Office Director, Emil Franks. Blood Bank called and updated scanning of product and verification retired with several more attempts. Downtime Form used for this admin of product FFP [id number] A-POS. VITAL SIGNS will be documented in regular worklist. No adverse reactiion noted at this time.
--- NOTE | 2023-01-28 22:25 | NURSING ---
Addendum entered by Ashlyn Sanon 01/29/23 00:27: FRESH PLASMA ADMIN COMPLETE AND DOWNTIME DOCUMENTATION ON CHART. Original Note: admin complete and VS within normal limits. Pt denies any sx of reaction. Resting comfortably. Documentation added to pt chart.
[2023-01-28] MEDS: 0.9% Saline Lock 10 ML Syringe IV (23:42)
--- NOTE | 2023-01-29 01:29 | NURSING ---
PT ASKING TO GET UP AT THIS TIME AND GET TO RECLINER. PT ORIENTED TO TIME OF DAY AND THAT HE SHOULD TRY TO GET SOME SLEEP. PT RESTLESS.
[2023-01-29] MEDS: 0.9% Normal Saline 1,000 ML 60 ML IV ×2 (03:20→21:04)
[2023-01-29] MEDS: 0.9% Saline Lock 10 ML Syringe IV ×2 (03:28→07:53)
--- NOTE | 2023-01-29 05:55 | EKG12_ITS ---
Test Reason : AM EKG Blood Pressure : / mmHG Vent. Rate : 078 BPM Atrial Rate : 059 BPM P-R Int : 000 ms QRS Dur : 166 ms QT Int : 438 ms P-R-T Axes : 000 -48 107 degrees QTc Int : 499 ms Ventricular-paced rhythm Abnormal ECG When compared with ECG of 12-JAN-2023 19:34, Vent. rate has increased BY 8 BPM Confirmed by JOHN BRENNAN, VIGNESH ([id number]), editor house organ MAGY JAMES ([id number]) on 02/01/2023 2:39:40 PM Referred By: Chantal Caruso Confirmed By:VIGNESH LOPEZ MD
[2023-01-29] MEDS: Nystatin/Triamcin Oint 1 APPLIC TOPICAL ×3 (05:59→21:05)
[2023-01-29 06:00] VITALS: BMI 29.3
[2023-01-29 07:28] VITALS: BP 104/71; PULSE 78; RESP 16; TEMP 36.5; O2SAT 97
[2023-01-29] MEDS: Menthol/Lanolin/Calamine/Znox 113 GM Tube 1 APPLIC TOPICAL ×2 (07:48→21:06)
[2023-01-29] MEDS: Ensure Plus High Protein 120 ML LIQUID PO ×3 (07:48→17:20)
[2023-01-29] MEDS: Potassium Chloride Oral Tablet 20 MEQ PO (07:48)
[2023-01-29] MEDS: Midodrine HCl 5 MG Tablet PO ×3 (07:48→17:20)
[2023-01-29] MEDS: Senna/Docusate Sodium 1 Tablet 2 TABLET PO ×2 (07:48→21:04)
[2023-01-29] MEDS: Nystatin Powder 15gm Bottle 1 APPLIC TOPICAL ×2 (07:48→21:06)
[2023-01-29] MEDS: NYSTATIN 500,000 UNIT/5 ML UDC 500000 UNIT PO ×4 (07:49→21:04)
[2023-01-29 19:09] VITALS: BP 124/76; PULSE 70; RESP 17; TEMP 36.2; O2SAT 97
[2023-01-29] MEDS: Mirtazapine 15 MG Tablet 7.5 MG PO (21:04)
[2023-01-29] MEDS: Atorvastatin Calcium 10 MG Tablet PO (21:04)
[2023-01-29] MEDS: MELATONIN 3 MG TABLET PO (21:04)
[2023-01-29] MEDS: QUEtiapine 25 MG Tablet 37.5 MG PO (21:05)
[2023-01-30] MEDS: Nystatin/Triamcin Oint 1 APPLIC TOPICAL ×3 (04:35→20:16)
[2023-01-30 06:30] VITALS: BMI 29.6
[2023-01-30 07:42] VITALS: BP 131/68; PULSE 74; RESP 18; TEMP 36.8; O2SAT 94
[2023-01-30] MEDS: Senna/Docusate Sodium 1 Tablet 2 TABLET PO (08:03)
[2023-01-30] MEDS: Menthol/Lanolin/Calamine/Znox 113 GM Tube 1 APPLIC TOPICAL ×2 (08:03→20:15)
[2023-01-30] MEDS: Midodrine HCl 5 MG Tablet PO ×3 (08:03→16:14)
[2023-01-30] MEDS: Potassium Chloride Oral Tablet 20 MEQ PO (08:03)
[2023-01-30] MEDS: Nystatin Powder 15gm Bottle 1 APPLIC TOPICAL ×2 (08:04→20:17)
[2023-01-30] MEDS: NYSTATIN 500,000 UNIT/5 ML UDC 500000 UNIT PO ×4 (08:04→20:17)
[2023-01-30] MEDS: Ensure Plus High Protein 120 ML LIQUID PO ×2 (08:27→16:14)
[2023-01-30 13:00] VITALS: BP 128/64
[2023-01-30] MEDS: 0.9% Normal Saline 1,000 ML 60 ML IV (13:56)
[2023-01-30 19:32] VITALS: BP 127/70; PULSE 69; RESP 19; TEMP 36.9; O2SAT 97
[2023-01-30] MEDS: Acetaminophen 500 MG Tablet 1000 MG PO (20:13)
[2023-01-30] MEDS: QUEtiapine 25 MG Tablet 37.5 MG PO (20:13)
[2023-01-30] MEDS: Mirtazapine 15 MG Tablet 7.5 MG PO (20:14)
[2023-01-30] MEDS: Atorvastatin Calcium 10 MG Tablet PO (20:15)
[2023-01-30] MEDS: MELATONIN 3 MG TABLET PO (20:16)
[2023-01-30 21:39] VITALS: O2SAT 97
[2023-01-31] MEDS: 0.9% Normal Saline 1,000 ML 60 ML IV ×2 (06:07→21:33)
[2023-01-31] MEDS: Nystatin/Triamcin Oint 1 APPLIC TOPICAL ×3 (06:08→20:08)
[2023-01-31 07:05] VITALS: BP 123/70; PULSE 82; RESP 16; TEMP 36.4; O2SAT 92
[2023-01-31] MEDS: Potassium Chloride Oral Tablet 20 MEQ PO (09:22)
[2023-01-31] MEDS: Nystatin Powder 15gm Bottle 1 APPLIC TOPICAL ×2 (09:22→20:08)
[2023-01-31] MEDS: NYSTATIN 500,000 UNIT/5 ML UDC 500000 UNIT PO ×4 (09:22→20:04)
[2023-01-31] MEDS: Menthol/Lanolin/Calamine/Znox 113 GM Tube 1 APPLIC TOPICAL ×2 (09:22→20:07)
[2023-01-31] MEDS: Midodrine HCl 5 MG Tablet PO ×3 (09:22→17:06)
[2023-01-31] MEDS: Ensure Plus High Protein 120 ML LIQUID PO ×2 (12:34→17:06)
[2023-01-31 19:30] VITALS: BP 111/56; PULSE 70; RESP 16; TEMP 36.2; O2SAT 94
[2023-01-31] MEDS: QUEtiapine 25 MG Tablet 37.5 MG PO (20:03)
[2023-01-31] MEDS: Mirtazapine 15 MG Tablet 7.5 MG PO (20:04)
[2023-01-31] MEDS: MELATONIN 3 MG TABLET PO (20:04)
[2023-01-31] MEDS: Atorvastatin Calcium 10 MG Tablet PO (20:04)
[2023-01-31] MEDS: Acetaminophen 500 MG Tablet 1000 MG PO (20:09)
[2023-01-31 20:47] VITALS: O2SAT 96
[2023-02-01] MEDS: Nystatin/Triamcin Oint 1 APPLIC TOPICAL ×3 (04:59→20:08)
[2023-02-01] MEDS: Metolazone 2.5 MG Tablet PO (05:01)
[2023-02-01 06:44] VITALS: BMI 29.9
[2023-02-01 08:04] VITALS: BP 140/72; PULSE 80; RESP 17; TEMP 36.6; O2SAT 93
[2023-02-01] MEDS: Ensure Plus High Protein 120 ML LIQUID PO ×3 (08:35→16:37)
[2023-02-01] MEDS: Potassium Chloride Oral Tablet 20 MEQ PO (08:36)
[2023-02-01] MEDS: Nystatin Powder 15gm Bottle 1 APPLIC TOPICAL ×2 (08:36→20:05)
[2023-02-01] MEDS: Midodrine HCl 5 MG Tablet PO ×2 (08:36→13:18)
[2023-02-01] MEDS: NYSTATIN 500,000 UNIT/5 ML UDC 500000 UNIT PO ×4 (08:36→20:04)
[2023-02-01] MEDS: Menthol/Lanolin/Calamine/Znox 113 GM Tube 1 APPLIC TOPICAL ×2 (08:36→20:05)
--- NOTE | 2023-02-01 11:07 | PCM.PROGNOTE ---
Subjective Subjective Leonard is seen on team rounds. 2 of his brothers were present in the room for rounds. All questions were answered to everyone's satisfaction. I was later able to talk with Sylvia in the room. Afebrile VSS -blood pressures are good. We will check orthostatics today. Blood pressure this a.m. was 140/72. Orthostatics are still very + with standing. He was 140/72 lying, 96/47 sitting and 81/34 standing. HR does not significantly change with changes in position. Maintaining appropriate oxygen saturation on RA Oral intake is improved. He ate 50 to 74% of his breakfast this morning and only 25-45% of supper last night. He had 50-74% of lunch and 75% of breakfast yesterday. Oral fluid intake has improved and yesterday he took 1200 cc p.o. on the day prior to that took 920. Weight is up to 197 pounds and 9.67 ounces today. Postvoid residuals since the Mak was discontinued are all less than 100. Discussed with nursing - no problems that need addressed. Nursing reports that he is eating better and is consistently feeding himself now. He is also sleeping better at night. Reviewed the PT/OT/ST notes. He used the BSC today using the yina lift to transfer but, he did not have syncope and did not c/o lightheadedness. He was able to sit at the edge of the bed on Wednesday for 20 minutes at contact-guard assist to mod assist and did not have syncope or lightheadedness. He did have a sensation that the bed was moving during seated exercises. Medication list reviewed. Furosemide is still on hold and he did receive metolazone this morning. Currently on Remeron 7.5 mg at night and Seroquel 37.5 mg at 8 PM. Very alert during the day now. Appropriate. Leonard denies chest pain, shortness of breath at rest, nausea/vomiting/abdominal pain, dysuria and calf pain. He has urinary urgency knows when he has to urinate. A UA was checked last week and he has no urinary tract infection. He does get some shortness of breath with exertion. He is so weak that even minimal exertion makes him short of breath because it is a big effort. When he stood in the Yina-Lift he felt like his legs were going to give out. Denies cephalgia. Objective Data Objective Data Vital Signs: Vital Signs Temp Pulse Resp BP Pulse Ox O2 Del Method O2 Flow Rate 97.8 F 80 17 140/72 H 93 Room Air 0 02/01/23 08:04 02/01/23 08:04 02/01/23 08:04 02/01/23 08:04 02/01/23 08:04 02/01/23 08:04 01/24/23 20:40 FiO2 21 01/24/23 20:40 Oxygen Flow Rate (L/min) 0 Oxygen Delivery Method Room Air Weight: 197 lb 9.6 oz Body Mass Index (BMI) 29.9 Intake & Output: Intake and Output for Last 24 Hours 01/30/23 01/31/23 02/01/23 23:59 23:59 23:59 Intake Total 1920 / 1920 3097 / 3097 200 / 200 Output Total 400 / 400 1250 / 1250 300 / 300 Balance 1520 / 1520 1847 / 1847 -100 / -100 Lab / Micro Data Result Diagrams: 01/28/23 11:14 02/01/23 11:45 Physical Exam Const alert and no apparent distress Constitutional Narrative: Asking appropriate questions. Short term memory is not good. LT memory is very good. Sometimes gets confused about things I said to him last week and thinking I said it today but, he is right in that we did talk about these things with him. He gets fairly fatigued with therapy. HEENT HEENT Narrative: no thrush and he denies sore mouth or painful swallowing. Mouth: dry mucous membranes Eyes PERRL and EOMs intact bilaterally Neck supple Resp Resp Narrative: few coarse crackles in the bases. No wheezes. fair inspiratory effort. Effort and Inspection: Negative for tachypneic or labored Cardio regular rate, regular rhythm and no gallops GI normal to inspection, nondistended, normoactive bowel sounds, soft to palpation and non-tender GI Narrative: No pitting in the flanks Extremity no calf tenderness General Extremity: Negative for edema Skin Rashes: no rashes Psych Psych Narrative: affect is better, not as flat and he is very talkative now. Family is impressed at how alert he is today. Appearance: appropriate Attitude: No agitated Activity / Motor Behavior: Negative for restless Assessment & Plan Assessment/Plan (1) Debility: (2) Hemorrhagic cerebrovascular accident (CVA): (3) Subdural hematoma: (4) Subarachnoid hemorrhage: (5) Encephalomalacia: (6) Dysphagia: (7) Left-sided neglect: (8) Generalized weakness: (9) Orthostatic hypotension: (10) Dehydration: (11) Macrocytic anemia: (12) Chronic kidney disease, stage 3b: (13) Hyperlipidemia: (14) Coronary artery disease: (15) Atrial fibrillation: (16) History of placement of leadless cardiac pacemaker: (17) Secondary pulmonary arterial hypertension: (18) Essential (primary) hypertension: (19) Restrictive airway disease: (20) Obesity: (21) custodial current use of anticoagulant: (22) History of complete heart block: (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 Continue therapy 2. Check a BMP and phosphorus today 3. Hep-Lock IV fluids after the current liter has infused. 4. Check orthostatics today. If the orthostatics look good and he has no lightheadedness will okay him for standing with PT. Charges/Coding Visit Charges Inpatient E&M: 01612 Subs Hosp L2
[2023-02-01 12:26] LABS: Anion Gap 6 (5-15); BUN 12 mg/dL (7-18); Chloride 111 mmol/L (98-107); EST Glomerular Filtration Rate 61 mL/min (>60); Est Glom Filt Rate - Afr Amer 74 mL/min (>60); Estimated Creatinine Clearance 43.54 ml/min; Glucose 124 mg/dL (74-106); Potassium 3.7 mmol/L (3.5-5.1); Sodium Level 141 mmol/L (136-145)
[2023-02-01 12:32] LABS: Phosphorus 2.3 mg/dL (2.5-4.9)
--- NOTE | 2023-02-01 12:50 | CASEMGMT ---
Social Work IDT met with patient and two brothers for Team meeting. Discussed patient's progress in PT/OT/ST/SN. Educated to [place] insurance with [employer] 02/02 and continued stay is not guaranteed with each review. Pt's goal remains DC home with , however, pt needs to be more independent for to assist at home. SW to continue to follow for DC planning. Phyllis Vela, AUTOMATION CONSULTANT DANCE STUDIO MANAGER
[2023-02-01 14:01] VITALS: BP 140/72; BP 81/34; BP 96/47; PULSE 70; PULSE 73
[2023-02-01] MEDS: Midodrine HCl 5 MG Tablet 10 MG PO (16:37)
--- NOTE | 2023-02-01 17:09 | ST.MBS ---
Modified Barium Swallow - Patient Information Study Date: 02/01/23 Study Time: 09:15 Direct Billable Minutes: 120 Total Minutes procedure & reportin Diagnosis: Hemorrhagic CVA I61.9 Referring Physician: Chantal Caruso Reason for Referral: Objectively assess swallow function, assess risk for aspiration, and determine recommendations for least restrictive diet textures and compensatory strategies to improve safety of swallow. Medical History: Jorge Arevalo is a 87 YO M with a PMH of PAF, PM implantation, CAD, hx of CABG, diastolic CHF with preserved EF, hypertension, AV [place] ablation, chronic anticoagulation with rivaroxaban, isolated elevated bili, BPH, secondary pulmonary hypertension and hyperlipidemia who presented to the ED at [facility] on 01/12/23 c/o generalized weakness. He had fallen at home 5 times. He denied hitting his head. He was having trouble getting around and his family thought he needed more rehab/TCU. He was taking ASA and Xarelto. He had just been discharged from TCU on 12/31/2022 where he was being treated for debility due to streptococcal sepsis. Noncontrast CT brain showed a 1 cm right hemispheric subdural hematoma with subarachnoid hemorrhage. There was also right parietal intraparenchymal hemorrhage as well as right parietal encephalomalacia. There was 2 mm right to left subfalcine herniation and diffuse cerebral edema in the right cerebral hemisphere. He was given Kcentra and transferred to [facility] to be evaluated for possible surgery. At [facility] the CT head was repeated and it showed a right parietal intraparenchymal hemorrhage measuring 3.6 cm (he 3.4 at [facility]), right convexity subdural hematoma of 9 mm (7 mm at [facility]) a trace subarachnoid hemorrhage and intraventricular hemorrhage in the left lateral ventricle and a 5 to 6 mm rightward midline shift. CTA showed no underlying vascular lesion. Aspirin and Xarelto were placed on hold and he was started on Keppra for seizure prophylaxis. Neurosurgery was consulted and did not recommend operative intervention. While in the emergency room at [facility] he was found to have a new oxygen requirement and chest x-ray showed a multifocal pneumonia. He was started on antibiotics. He also required pressor support for low blood pressure. While at [facility] he was seen by PT/OT/ST. He was found to have dysphagia ad was placed on thickened liquids. Therapy recommended acute rehab post DC from [facility]. Leonard was transferred to the acute inpt rehab unit at [facility] on 01/20/23 for 3 hours of therapy daily to restore function/independence to allow him to return home at DC from rehab. Patient completed MBSS on 12/24/22, which recommended regular textures, thin liquids. Upon re-admission to [facility], patient was recommended soft and bite size textures, and nectar/mildly thick liquids. Pt has completed about a month of swallowing therapy, and a Ceja Free Water protocol was implemented with no worsening lung sounds. Current Diet Ordered: Soft & Bite Size, [place]/Mildly Thick Liquids Dentition: WNL Mental Status: Impaired Respiratory Status: Oxygenating on Room Air - Penetration-Aspiration Scale Penetration-Aspiration Scale: OBJECTIVE ASSESSMENT OF SWALLOW FUNCTION (QUANTITATIVE ? PER TRIAL): PENETRATION / ASPIRATION SCALE (FENG): 1 = does not enter airway 2 = enters airway/above vocal folds/ejected 3 = enters airway/above vocal folds/not ejected 4 = enters airway/contacts vocal folds/ejected 5 = enters airway/contacts vocal folds/not ejected 6 = enters airway/below vocal folds/ejected 7 = enters airway/below vocal folds/not ejected despite effort 8 = enters airway/below vocal folds/no effort VIDEOFLOROSCOPIC SCALE SCORE (FENG): Grade I = aspiration of material that has penetrated into the laryngeal vestibule, intact cough reflex Grade II = aspiration < 10 % of the bolus, intact cough reflex Grade III = aspiration of < 10 % of the bolus, reduced cough reflex or aspiration of > 10 % of the bolus, intact cough reflex Grade IV = aspiration of > 10 % of the bolus, reduced cough reflex - Penetration-Aspiration Scale Score Thin Liquid via teaspoon Result: 2= enter airway/above vocal folds/ejected Thin Liquid via teaspoon Trial 2 Result: 2= enter airway/above vocal folds/ejected Thin Liquid via small single sip from cup cued cough and re-swallow Result: 3= enters airways/above vocal folds/not ejected [place] Thick Liquid via sequential sips from cup Result: 2= enter airway/above vocal folds/ejected Pudding via teaspoon w/esophageal screening Result: 1= does not enter airway 1/4 Cookie Result: 1= does not enter airway Thin Liquid via sequential sips from straw Result: 3= enters airways/above vocal folds/not ejected - Oral Phase Labial Seal: Escape beyond mid-chin Tongue Control During Bolus Hold: Posterior escape of less than half of bolus Bolus Preparation/Mastication: Slow prolonged chewing/mashing with complete recollection Bolus Transport/Lingual Motion: Delayed initiation of tongue motion Oral Residue: Trace residue lining oral structures - Pharyngeal Phase Initiation of Pharyngeal Swallow: Bolus head at posterior laryngeal surgace of epiglottis Soft Palate Elevation: Trace column of contrast/air between soft palate and pharyngeal wall Laryngeal Elevation: Partial superior movement thyroid cart/partial apprx aryt-epig petiole Anterior Hyoid Excursion: Partial anterior movement Epiglottic Movement: Partial inversion Laryngeal Vestibule Closure at Height of Swallow: Incomplete; narrow column of air/contrast in laryngeal vestibule Pharyngeal Stripping Wave: Present - diminished Pharyngoesophageal Segment Opening: Parital distension and partial duration; parital obstruction of flow Tongue Base Retraction: Wide column of contrast between tongue base & post. pharyngeal wall Pharyngeal Residue: Collection of residue within or on pharyngeal structures - Esophageal Phase Esophageal Clearance: Esophageal retention - Treatment Strategies Effects of treatment strategies attemped:: cough and re-swallow = somewhat effective - Diagnosis/Impression Diagnosis: Mild-Moderate Oropharyngeal Dysphagia (R13.12) Impression: The oral phase is primarily marked by... -Decreased bolus control with >1/2 of the bolus spilling posteriorly to the pyriforms prior to swallow onset observed with large sips especially. -Prolonged chewing and recollection of bolus, and slow tongue motion for A-P transport, most notable with pudding trial. Patient reported it was difficult swallowing pudding trial. The pharyngeal phase is primarily marked by... -Moderately decreased airway closure during the swallow due to partial anterior hyoid excursion, decreased epiglottic inversion, and decreased laryngeal elevation. -Moderately decreased tongue base retraction, moderately decreased UES opening/duration, and decreased pharyngeal stripping wave with resulting mod-severe pharyngeal residues after the swallow. -Penetration observed during swallow and post prandial penetration, especially of thin liquids, which did not reliably eject placing patient at increased risk for aspiration. The esophageal phase is grossly within normal limits. - Recommendations Diet: Thin Liquids - Soft and Bite Size Textures Comment: Intermittent cough and re-swallow. Compensatory Strategies: Small Bites, Small Sips, No Straws, Liquid by Teaspoon Only, Slow Rate, Feed only when alert, Multiple Swallows, Sitting upright Supervision: Distant Supervision Recommend Repeat Modified Barium Swallow: Yes Need for Skilled Speech Therapy Services: Yes Comment: Will recommend the patient for dysphagia therapy to address deficits in oropharyngeal swallow function. Will recommend the patient for oropharyngeal strengthening to improve lingual coordination, tongue base retraction, laryngeal elevation, hyoid excursion, and duration of UES opening (Kristin, Remi Maneuver or Effortful Breathhold and Swallow, Effortful Swallow, and CTAR). The patient would benefit from thorough education regarding diet recommendations and recommended compensatory strategies. Education Completed: 1. Described result of evaluation., 2. Pt understands evaluation & agrees with goals and treatment plan., 7. Pt requires further education on strategies & risks., 8. Family/caregivers require further education on strategies & risks. - Status Active ST Patient: Active - Contact Information [facility] Speech Therapy:: Steven Monsalve M.A. CF-LEATHER GOODS ASSEMBLER Speech-Language Pathologist [facility] [address] [place] [address] [email or web address] [phone] 02/01/23 17:53 02/01/23 17:58
[2023-02-01 19:10] VITALS: BP 149/70; PULSE 73; RESP 16; TEMP 36.9; O2SAT 94
[2023-02-01] MEDS: QUEtiapine 25 MG Tablet 37.5 MG PO (20:01)
[2023-02-01] MEDS: Atorvastatin Calcium 10 MG Tablet PO (20:02)
[2023-02-01] MEDS: Mirtazapine 15 MG Tablet 7.5 MG PO (20:02)
[2023-02-01] MEDS: MELATONIN 3 MG TABLET PO (20:03)
[2023-02-01] MEDS: Na Biphos/Potassium Phosphate PACKET 1 PACKET PO (20:03)
[2023-02-01] MEDS: Senna/Docusate Sodium 1 Tablet 2 TABLET PO (20:04)
[2023-02-02] MEDS: Nystatin/Triamcin Oint 1 APPLIC TOPICAL ×3 (05:28→19:48)
[2023-02-02 06:00] VITALS: BMI 30.7
[2023-02-02 07:11] VITALS: BP 130/55; PULSE 63; RESP 16; TEMP 36.5; O2SAT 95
[2023-02-02] MEDS: NYSTATIN 500,000 UNIT/5 ML UDC 500000 UNIT PO ×4 (07:24→19:45)
[2023-02-02] MEDS: Ensure Plus High Protein 120 ML LIQUID PO ×3 (07:24→15:44)
[2023-02-02] MEDS: Menthol/Lanolin/Calamine/Znox 113 GM Tube 1 APPLIC TOPICAL ×2 (07:24→19:48)
[2023-02-02] MEDS: Midodrine HCl 5 MG Tablet 10 MG PO ×3 (07:24→15:44)
[2023-02-02] MEDS: Nystatin Powder 15gm Bottle 1 APPLIC TOPICAL ×2 (07:24→19:47)
[2023-02-02] MEDS: Potassium Chloride Oral Tablet 20 MEQ PO (07:24)
[2023-02-02] MEDS: Na Biphos/Potassium Phosphate PACKET 1 PACKET PO ×2 (07:33→19:45)
[2023-02-02 08:41] VITALS: BP 131/76; BP 141/75; BP 85/47; PULSE 70; PULSE 72; PULSE 75
--- NOTE | 2023-02-02 12:39 | PCM.PROGNOTE ---
Subjective Subjective Afebrile VSS-pulse rate did not change when going from lying to sitting to standing. Blood pressure was 141/75 lying down, 131/76 sitting up and then dropped to 85/47 standing. Midodrine was increased to 10 mg 3 times daily just yesterday. Maintaining appropriate oxygen saturation on RA Oral fluid intake yesterday was only 740 cc. He had a liter of IV fluids but they have been discontinued. Weight today is 202.6 pounds which is up from 197.6 pounds yesterday? I do not believe this. He has no edema in the legs or flanks and he denies orthopnea and SOB at rest.......she does have ERWIN but, this is chronic. Discussed with nursing - no problems that need addressed Reviewed the PT/OT/ST notes Medication list reviewed. Tells me that he did not sleep well last night. He slept off and on during the day yesterday. He denies lightheadedness. No FREITAS, no CP, no N/V/abd pain. Denies dysuria but, he has urgency and I suspect this is due to BPH.....recent UA was negative for infection. Objective Data Objective Data Vital Signs: Vital Signs Temp Pulse Resp BP Pulse Ox O2 Del Method O2 Flow Rate 97.7 F L 72 16 131/76 H 95 Room Air 0 02/02/23 07:11 02/02/23 08:41 02/02/23 07:11 02/02/23 08:41 02/02/23 07:11 02/02/23 07:11 01/24/23 20:40 FiO2 21 01/24/23 20:40 Oxygen Flow Rate (L/min) 0 Oxygen Delivery Method Room Air Weight: 202 lb 9.677 oz Body Mass Index (BMI) 30.7 Intake & Output: Intake and Output for Last 24 Hours 01/31/23 02/01/23 02/02/23 23:59 23:59 23:59 Intake Total 3097 / 3097 1740 / 1800 360 / 360 Output Total 1250 / 1250 450 / 450 150 / 150 Balance 1847 / 1847 1290 / 1350 210 / 210 Lab / Micro Data Result Diagrams: 01/28/23 11:14 02/01/23 11:45 Physical Exam Const alert, oriented x3 and no apparent distress Constitutional Narrative: Sitting in the recliner.......finished almost all his lunch. I observed him doing quad extensions today with ankle weights on and he was doing very well. He ate 75-10% of his breakfast today. General Appearance: cooperative HEENT Mouth: dry mucous membranes Resp Resp Narrative: Initially he had coarse crackles in both bases but after several deep breaths the lungs were clear to auscultation. He has no conversational dyspnea. He was not tachypneic while doing quad extensions with leg weights. Had much better air exchange today. Cardio regular rate, regular rhythm and no gallops GI normal to inspection, nondistended, normoactive bowel sounds and soft to palpation GI Narrative: No guarding with palpation. Had a bowel movement today. Extremity no calf tenderness General Extremity: Negative for edema Skin Rashes: no rashes Neuro CN's II-XII intact bilaterally Neuro Narrative: Oriented x3. Moves all extremities. Psych cooperative Psych Narrative: Upbeat and eating better. Very motivated to get better. He is currently on Remeron. I did not get a note from nursing today that he was confused or not sleeping during the night so I assume that he is sleeping better. Appearance: appropriate Attitude: No agitated Activity / Motor Behavior: Negative for restless Mood & Affect: Negative for anxious Assessment & Plan Assessment/Plan (1) Debility: (2) Hemorrhagic cerebrovascular accident (CVA): (3) Subdural hematoma: (4) Subarachnoid hemorrhage: (5) Encephalomalacia: (6) Dysphagia: (7) Left-sided neglect: (8) Generalized weakness: (9) Orthostatic hypotension: (10) Dehydration: (11) Macrocytic anemia: (12) Chronic kidney disease, stage 3b: (13) Hyperlipidemia: (14) Coronary artery disease: (15) Atrial fibrillation: (16) History of placement of leadless cardiac pacemaker: (17) Secondary pulmonary arterial hypertension: (18) Essential (primary) hypertension: (19) Restrictive airway disease: (20) Obesity: (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 Continue therapy 2. His BMP looked very good yesterday and the creatinine was down to 1.2 with a BUN of 12. Unfortunately since we discontinued the intravenous fluids his oral intake had decreased to 720 yesterday. Orthostatics were still positive today but he denied lightheadedness with standing. Having an IV pole during the day is somewhat cumbersome with therapy. We will start an IV at 4 PM daily and run for 14 hours and discontinue. Phosphorus was low yesterday and he was started on a sodium phosphate supplement. 3. Recheck a BMP, HH and phosphorus on Wednesday. 4. No changes to the drug regimen today. Continue Midodrine at 10 mg TID 5. Making good progress considering all the set backs at admission with severe orthostatic hypotension, poor oral intake, insomnia, syncope with standing, extreme fatigue and dehydration. I suspect with daily IV fluids we will be able to stand him more without lightheadedness or syncope. 6. Continue to hold Lasix and examined daily for any physical signs of fluid retention. 7. schedule toileting for every 3 hours to see if we can eliminate urinary incontinence. Charges/Coding Visit Charges Inpatient E&M: 45968 Subs Hosp L2
[2023-02-02] MEDS: 0.9% Saline Lock 10 ML Syringe IV (15:39)
[2023-02-02] MEDS: 0.9% Normal Saline 1,000 ML 50 ML IV (15:44)
[2023-02-02 19:31] VITALS: BP 123/67; PULSE 70; RESP 16; TEMP 36.5; O2SAT 93
[2023-02-02] MEDS: Mirtazapine 15 MG Tablet 7.5 MG PO (19:43)
[2023-02-02] MEDS: MELATONIN 3 MG TABLET PO (19:44)
[2023-02-02] MEDS: Atorvastatin Calcium 10 MG Tablet PO (19:44)
[2023-02-02] MEDS: QUEtiapine 25 MG Tablet 37.5 MG PO (19:44)
[2023-02-02] MEDS: Senna/Docusate Sodium 1 Tablet 2 TABLET PO (19:45)
[2023-02-02] MEDS: Acetaminophen 500 MG Tablet 1000 MG PO (19:46)
[2023-02-02 20:07] VITALS: O2SAT 96
[2023-02-03] MEDS: Nystatin/Triamcin Oint 1 APPLIC TOPICAL ×3 (05:06→21:31)
[2023-02-03 06:00] VITALS: BMI 30.9
[2023-02-03 08:03] VITALS: BP 132/69; PULSE 71; RESP 16; TEMP 35.8; O2SAT 94
[2023-02-03] MEDS: Na Biphos/Potassium Phosphate PACKET 1 PACKET PO ×2 (08:28→21:29)
[2023-02-03] MEDS: Senna/Docusate Sodium 1 Tablet 2 TABLET PO ×2 (08:28→21:29)
[2023-02-03] MEDS: Midodrine HCl 5 MG Tablet 10 MG PO ×3 (08:28→16:48)
[2023-02-03] MEDS: Potassium Chloride Oral Tablet 20 MEQ PO (08:28)
[2023-02-03] MEDS: NYSTATIN 500,000 UNIT/5 ML UDC 500000 UNIT PO ×4 (08:28→21:30)
[2023-02-03] MEDS: Ensure Plus High Protein 120 ML LIQUID PO ×3 (08:29→16:48)
[2023-02-03] MEDS: Menthol/Lanolin/Calamine/Znox 113 GM Tube 1 APPLIC TOPICAL ×2 (08:30→21:30)
[2023-02-03] MEDS: Nystatin Powder 15gm Bottle 1 APPLIC TOPICAL ×2 (08:31→21:31)
[2023-02-03] MEDS: 0.9% Saline Lock 10 ML Syringe IV (17:28)
[2023-02-03] MEDS: 0.9% Normal Saline 1,000 ML 50 ML IV (17:29)
[2023-02-03 19:30] VITALS: BP 130/66; PULSE 70; RESP 15; TEMP 36.3; O2SAT 98
[2023-02-03] MEDS: Mirtazapine 15 MG Tablet 7.5 MG PO (21:29)
[2023-02-03] MEDS: Atorvastatin Calcium 10 MG Tablet PO (21:29)
[2023-02-03] MEDS: MELATONIN 3 MG TABLET PO (21:29)
[2023-02-03] MEDS: QUEtiapine 25 MG Tablet 37.5 MG PO (21:30)
[2023-02-04 06:00] VITALS: BP 103/76; BP 126/64; BP 132/68; PULSE 79; PULSE 99; BMI 29.7
[2023-02-04] MEDS: Nystatin/Triamcin Oint 1 APPLIC TOPICAL ×3 (06:51→20:33)
[2023-02-04] MEDS: NYSTATIN 500,000 UNIT/5 ML UDC 500000 UNIT PO ×4 (08:52→20:34)
[2023-02-04] MEDS: Na Biphos/Potassium Phosphate PACKET 1 PACKET PO ×2 (08:52→20:33)
[2023-02-04] MEDS: Potassium Chloride Oral Tablet 20 MEQ PO (08:52)
[2023-02-04] MEDS: Ensure Plus High Protein 120 ML LIQUID PO ×3 (08:52→17:35)
[2023-02-04] MEDS: Midodrine HCl 5 MG Tablet 10 MG PO ×3 (08:52→17:38)
[2023-02-04] MEDS: Menthol/Lanolin/Calamine/Znox 113 GM Tube 1 APPLIC TOPICAL ×2 (08:53→20:32)
[2023-02-04] MEDS: Senna/Docusate Sodium 1 Tablet 2 TABLET PO ×2 (08:53→20:35)
[2023-02-04] MEDS: Nystatin Powder 15gm Bottle 1 APPLIC TOPICAL ×2 (08:54→20:33)
[2023-02-04 09:03] VITALS: BP 105/55; PULSE 70; RESP 18; TEMP 36.6; O2SAT 96
[2023-02-04] MEDS: 0.9% Saline Lock 10 ML Syringe IV ×3 (09:48→17:11)
--- NOTE | 2023-02-04 12:13 | PCM.PROGNOTE ---
Subjective Subjective Afebrile VSS -orthostatics today show blood pressure of 126/64 lying down, 132/68 sitting and 103/76 standing. Heart rate did go up from 79 to 99 when going from sitting to standing. Leonard denies lightheadedness. Maintaining appropriate oxygen saturation on RA-96% today. Oral intake is much improved. He ate 75 to 100% of his breakfast today and 75 to 100% of supper last night. Discussed with nursing - no problems that need addressed Reviewed the PT/OT/ST notes Medication list reviewed. Simon FREITAS, CP, SOB, palpitations, N/V/abd pain, dysuria and calf tenderness. Tells me that he is sleeping better. He is very motivated to get better and go home. Objective Data Objective Data Vital Signs: Vital Signs Temp Pulse Resp BP Pulse Ox O2 Del Method O2 Flow Rate 97.8 F 70 18 105/55 L 96 Room Air 0 02/04/23 09:03 02/04/23 09:03 02/04/23 09:03 02/04/23 09:03 02/04/23 09:03 02/04/23 09:03 01/24/23 20:40 FiO2 21 01/24/23 20:40 Oxygen Flow Rate (L/min) 0 Oxygen Delivery Method Room Air Weight: 195 lb 15.855 oz Body Mass Index (BMI) 29.7 Intake & Output: Intake and Output for Last 24 Hours 02/02/23 02/03/23 02/04/23 23:59 23:59 23:59 Intake Total 760 / 760 1575.83 / 1575.83 150 / 150 Output Total 350 / 350 Balance 410 / 410 1575.83 / 1575.83 150 / 150 Lab / Micro Data 02/08/23 05:36 02/08/23 05:36 Physical Exam Const alert, oriented x3 and no apparent distress Constitutional Narrative: Sitting in the recliner at the bedside. General Appearance: cooperative HEENT Mouth: dry mucous membranes Resp normal respiratory effort and clear to auscultation bilaterally Effort and Inspection: Negative for tachypneic or labored Cardio regular rate, regular rhythm and no gallops GI normal to inspection, nondistended, normoactive bowel sounds, soft to palpation and non-tender Extremity no calf tenderness General Extremity: Negative for edema Skin Rashes: no rashes Assessment & Plan Assessment/Plan (1) PCT (porphyria cutanea tarda): (2) Debility: (3) Hemorrhagic cerebrovascular accident (CVA): (4) Subdural hematoma: (5) Subarachnoid hemorrhage: (6) Encephalomalacia: (7) Dysphagia: (8) Left-sided neglect: (9) Generalized weakness: (10) Orthostatic hypotension: (11) Macrocytic anemia: (12) Chronic kidney disease, stage 3b: (13) Hyperlipidemia: (14) Coronary artery disease: (15) Atrial fibrillation: (16) History of placement of leadless cardiac pacemaker: (17) Secondary pulmonary arterial hypertension: (18) Essential (primary) hypertension: (19) Restrictive airway disease: (20) Obesity: (21) History of complete heart block: (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 Continue therapy 2. BMP, H&H and phosphorus ordered for the a.m. 3. No changes to the Current drug regimen today Charges/Coding Visit Charges Inpatient E&M: 80764 Subs Hosp L2
[2023-02-04] MEDS: 0.9% Normal Saline 1,000 ML 50 ML IV (16:27)
[2023-02-04 20:06] VITALS: BP 120/63; PULSE 70; RESP 18; TEMP 36.7; O2SAT 96
[2023-02-04] MEDS: QUEtiapine 25 MG Tablet 37.5 MG PO (20:23)
[2023-02-04] MEDS: Mirtazapine 15 MG Tablet 7.5 MG PO (20:24)
[2023-02-04] MEDS: Atorvastatin Calcium 10 MG Tablet PO (20:32)
[2023-02-04] MEDS: MELATONIN 3 MG TABLET PO (20:32)
[2023-02-04 22:00] VITALS: PULSE 74; RESP 16; O2SAT 97
[2023-02-05] MEDS: Nystatin/Triamcin Oint 1 APPLIC TOPICAL ×3 (05:29→20:00)
[2023-02-05 06:00] VITALS: BP 120/71; BP 120/78; BP 124/62; PULSE 69; PULSE 71; PULSE 75
[2023-02-05 06:13] LABS: Hematocrit 38.5 % (40-54); Hemoglobin 12.6 g/dL (13.0-16.5)
[2023-02-05 06:35] LABS: Anion Gap 4 (5-15); BUN 17 mg/dL (7-18); BUN/Creat Ratio 15.5 RATIO (10-20); Calcium,Total 8.5 mg/dL (8.5-10.1); Chloride 112 mmol/L (98-107); EST Glomerular Filtration Rate 68 mL/min (>60); Est Glom Filt Rate - Afr Amer 82 mL/min (>60); Glucose 109 mg/dL (74-106); Potassium 3.9 mmol/L (3.5-5.1); Sodium Level 142 mmol/L (136-145)
[2023-02-05] MEDS: 0.9% Normal Saline 1,000 ML 50 ML IV (06:43)
[2023-02-05 07:53] VITALS: BP 107/58; PULSE 88; RESP 17; TEMP 36.3; O2SAT 98
[2023-02-05] MEDS: NYSTATIN 500,000 UNIT/5 ML UDC 500000 UNIT PO ×4 (09:43→20:00)
[2023-02-05] MEDS: Potassium Chloride Oral Tablet 20 MEQ PO (09:43)
[2023-02-05] MEDS: Senna/Docusate Sodium 1 Tablet 2 TABLET PO ×2 (09:44→20:00)
[2023-02-05] MEDS: Midodrine HCl 5 MG Tablet 10 MG PO ×3 (09:44→17:55)
[2023-02-05] MEDS: Na Biphos/Potassium Phosphate PACKET 1 PACKET PO ×2 (09:44→20:02)
[2023-02-05] MEDS: Nystatin Powder 15gm Bottle 1 APPLIC TOPICAL ×2 (09:50→19:59)
[2023-02-05] MEDS: Ensure Plus High Protein 120 ML LIQUID PO ×3 (09:50→17:55)
[2023-02-05] MEDS: Menthol/Lanolin/Calamine/Znox 113 GM Tube 1 APPLIC TOPICAL ×2 (09:51→19:59)
[2023-02-05 19:45] VITALS: BP 131/72; PULSE 72; RESP 18; TEMP 36.3; O2SAT 96
[2023-02-05] MEDS: MELATONIN 3 MG TABLET PO (20:00)
[2023-02-05] MEDS: Mirtazapine 15 MG Tablet 7.5 MG PO (20:01)
[2023-02-05] MEDS: QUEtiapine 25 MG Tablet 37.5 MG PO (20:01)
[2023-02-05] MEDS: Atorvastatin Calcium 10 MG Tablet PO (20:01)
--- NOTE | 2023-02-06 01:32 | NURSING ---
Reviewed and agree with Jame ADAMES, documentation and assessment charting.
[2023-02-06] MEDS: Nystatin/Triamcin Oint 1 APPLIC TOPICAL ×3 (05:00→20:30)
[2023-02-06 05:24] VITALS: BMI 29.9
[2023-02-06 06:00] VITALS: BP 111/62; BP 115/60; BP 81/34; PULSE 69; PULSE 70; PULSE 71
[2023-02-06 08:16] VITALS: BP 124/54; PULSE 62; RESP 16; TEMP 36.4; O2SAT 93
[2023-02-06] MEDS: Ensure Plus High Protein 120 ML LIQUID PO ×3 (08:39→15:58)
[2023-02-06] MEDS: Midodrine HCl 5 MG Tablet 10 MG PO ×3 (08:39→15:58)
[2023-02-06] MEDS: Potassium Chloride Oral Tablet 20 MEQ PO (08:39)
[2023-02-06] MEDS: NYSTATIN 500,000 UNIT/5 ML UDC 500000 UNIT PO ×4 (08:40→20:28)
[2023-02-06] MEDS: Senna/Docusate Sodium 1 Tablet 2 TABLET PO ×2 (08:40→20:31)
[2023-02-06] MEDS: Na Biphos/Potassium Phosphate PACKET 1 PACKET PO ×2 (08:40→20:29)
[2023-02-06] MEDS: Menthol/Lanolin/Calamine/Znox 113 GM Tube 1 APPLIC TOPICAL ×2 (08:41→20:30)
[2023-02-06] MEDS: Nystatin Powder 15gm Bottle 1 APPLIC TOPICAL ×2 (08:42→20:31)
--- NOTE | 2023-02-06 12:10 | PCM.PROGNOTE ---
Subjective Subjective Afebrile VSS -orthostatics were positive again today. Blood pressure lying was lower today at 111/62 and sitting it was 115/60 but standing it was 81/34. The heart rate did not change significantly with changes in position. He denied lightheadedness. BUN has been going up and increased from 12 on 6 26-17 on 630. Creatinine is good at 1.1. Hemoglobin is stable. Phosphorus is now within normal limits with twice daily phosphate supplement. Maintaining appropriate oxygen saturation on RA Oral intake is consistently eating 75 to 100% of his meals now. Weight today is down to 197.8 from 203.7 on 02/03/2023. We have no way of tracking I&O without putting in a Mak so state of hydration is being assessed with wts and PE daily. Discussed with nursing - no problems that need addressed. He is sleeping well at night with the increase in Seroquel to 37.5. Reviewed the PT/OT/ST notes Medication list reviewed. Leonard denies lightheadedness, chest pain, shortness of breath, palpitations, dysuria and calf tenderness. He did very well in therapy today. Alert and appropriate. Confusion is much better since admission. Sleeping well at night now. Objective Data Objective Data Vital Signs: Vital Signs Temp Pulse Resp BP Pulse Ox O2 Del Method O2 Flow Rate 97.6 F L 62 16 124/54 H 93 Room Air 0 02/06/23 08:16 02/06/23 08:16 02/06/23 08:16 02/06/23 08:16 02/06/23 08:16 02/06/23 10:00 01/24/23 20:40 FiO2 21 01/24/23 20:40 Oxygen Flow Rate (L/min) 0 Oxygen Delivery Method Room Air Weight: 197 lb 12.074 oz Body Mass Index (BMI) 29.9 Intake & Output: Intake and Output for Last 24 Hours 02/04/23 02/05/23 02/06/23 23:59 23:59 23:59 Intake Total 1770 / 1800 2243.33 / 2243.33 1570 / 1570 Output Total 400 / 400 100 / 100 Balance 1770 / 1800 1843.33 / 1843.33 1470 / 1470 Lab / Micro Data 02/05/23 05:49 02/05/23 05:49 Physical Exam Const alert, oriented x3 and no apparent distress Constitutional Narrative: Sitting in the recliner at the bedside. Not tachypneic. No pursed lip breathing. General Appearance: cooperative Neck no JVD Resp clear to auscultation bilaterally Resp Narrative: Good air exchange today Effort and Inspection: Negative for tachypneic Cardio regular rate, regular rhythm and no gallops Cardio Narrative: Tells me that his PM is set at 70.......that is where his HR consistently is and it does not change with sitting and standing. GI normal to inspection, nondistended, normoactive bowel sounds, soft to palpation and non-tender GI Narrative: No guarding with palpation. He is now continent of stool the past few days. Still incontinent of urine. Extremity no calf tenderness Extremity Narrative: Very slight edema of the left ankle. Skin Rashes: no rashes Psych cooperative and affect normal Appearance: appropriate Assessment & Plan Assessment/Plan (1) Debility: (2) Hemorrhagic cerebrovascular accident (CVA): (3) Subdural hematoma: (4) Subarachnoid hemorrhage: (5) Encephalomalacia: (6) Dysphagia: (7) Left-sided neglect: (8) Generalized weakness: (9) Orthostatic hypotension: (10) Dehydration: (11) Macrocytic anemia: (12) Chronic kidney disease, stage 3b: (13) Hyperlipidemia: (14) Coronary artery disease: (15) Atrial fibrillation: (16) History of placement of leadless cardiac pacemaker: (17) Secondary pulmonary arterial hypertension: (18) Essential (primary) hypertension: (19) Restrictive airway disease: (20) Obesity: (21) FPC current use of anticoagulant: (22) History of complete heart block: (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 Continue therapy 2. Add Florinef to his drug regimen. Start with the lowest dose of 0.05 mg daily and continue to monitor daily weights. Recheck orthostatics on Wednesday 3. DC melatonin and continue Remeron and Seroquel. Confusion is better since the addition of Seroquel to her drug regimen. 4. BMP on Wednesday 5. If the orthostatic hypotension persists with Midodrine and Florinef will talk with Dr. Russ about possibly increasing the pacer rate. Charges/Coding Visit Charges Inpatient E&M: 26628 Subs Hosp L2
[2023-02-06] MEDS: Fludrocortisone Acetate 0.1 MG Tablet 0.05 MG PO (14:08)
[2023-02-06] MEDS: 0.9% Normal Saline 1,000 ML 50 ML IV (15:58)
[2023-02-06] MEDS: 0.9% Saline Lock 10 ML Syringe IV (16:00)
[2023-02-06 19:31] VITALS: BP 145/76; PULSE 70; RESP 16; TEMP 36.3; O2SAT 96
[2023-02-06 19:43] VITALS: PULSE 74; RESP 16; O2SAT 96
[2023-02-06] MEDS: Atorvastatin Calcium 10 MG Tablet PO (20:29)
[2023-02-06] MEDS: QUEtiapine 25 MG Tablet 37.5 MG PO (20:29)
[2023-02-06] MEDS: Mirtazapine 15 MG Tablet 7.5 MG PO (20:30)
[2023-02-07 05:08] VITALS: BMI 30.4
[2023-02-07] MEDS: Nystatin/Triamcin Oint 1 APPLIC TOPICAL ×2 (05:56→13:43)
[2023-02-07] MEDS: Na Biphos/Potassium Phosphate PACKET 1 PACKET PO ×2 (09:02→20:28)
[2023-02-07] MEDS: Potassium Chloride Oral Tablet 20 MEQ PO (09:02)
[2023-02-07] MEDS: Midodrine HCl 5 MG Tablet 10 MG PO ×3 (09:03→17:46)
[2023-02-07] MEDS: Fludrocortisone Acetate 0.1 MG Tablet 0.05 MG PO (09:03)
[2023-02-07] MEDS: Ensure Plus High Protein 120 ML LIQUID PO ×2 (09:03→17:47)
[2023-02-07] MEDS: Menthol/Lanolin/Calamine/Znox 113 GM Tube 1 APPLIC TOPICAL ×2 (09:04→20:34)
[2023-02-07] MEDS: Nystatin Powder 15gm Bottle 1 APPLIC TOPICAL ×2 (09:04→20:34)
[2023-02-07] MEDS: Senna/Docusate Sodium 1 Tablet 2 TABLET PO ×2 (09:06→20:29)
[2023-02-07] MEDS: NYSTATIN 500,000 UNIT/5 ML UDC 500000 UNIT PO ×2 (09:09→13:44)
[2023-02-07 09:41] VITALS: BP 106/52; PULSE 73; RESP 16; TEMP 36.8; O2SAT 93
[2023-02-07] MEDS: 0.9% Normal Saline 1,000 ML 50 ML IV (15:07)
[2023-02-07 20:26] VITALS: BP 105/60; PULSE 70; RESP 16; TEMP 36.8; O2SAT 97
[2023-02-07] MEDS: Mirtazapine 15 MG Tablet 7.5 MG PO (20:29)
[2023-02-07] MEDS: Atorvastatin Calcium 10 MG Tablet PO (20:29)
[2023-02-07] MEDS: QUEtiapine 25 MG Tablet 37.5 MG PO (20:29)
[2023-02-08] MEDS: Nystatin/Triamcin Oint 1 APPLIC TOPICAL ×3 (05:38→21:31)
[2023-02-08] MEDS: Menthol/Lanolin/Calamine/Znox 113 GM Tube 1 APPLIC TOPICAL ×3 (05:39→21:31)
[2023-02-08 05:45] LABS: Hematocrit 37.2 % (40-54); Hemoglobin 11.7 g/dL (13.0-16.5); Mean Corp Hgb Conc 31.5 g/dL (32-36); Mean Corpuscular Hgb 30.5 pg (27.0-32.0); Mean Corpuscular Volume 96.9 fL (80-94); Mean Platelet Vol. 8.9 fl (6.2-12.0); Platelet Count 137 K/mm3 (150-450); RBC Distribution Width CV 15.9 % (11.6-14.6); Red Blood Count 3.84 M/mm3 (4.6-6.2); White Blood Count 5.8 K/mm3 (4.4-11.0)
[2023-02-08 05:48] VITALS: BMI 31.1
[2023-02-08 06:11] LABS: Anion Gap 3 (5-15); BUN 17 mg/dL (7-18); BUN/Creat Ratio 15.2 RATIO (10-20); Calcium,Total 8.7 mg/dL (8.5-10.1); Chloride 115 mmol/L (98-107); Creatinine, Serum 1.12 mg/dL (0.70-1.30); EST Glomerular Filtration Rate 66 mL/min (>60); Est Glom Filt Rate - Afr Amer 80 mL/min (>60); Estimated Creatinine Clearance 46.65 ml/min; Glucose 82 mg/dL (74-106); Potassium 3.9 mmol/L (3.5-5.1); Sodium Level 145 mmol/L (136-145)
[2023-02-08 07:24] VITALS: BP 136/77; PULSE 76; RESP 16; TEMP 36.7; O2SAT 95
[2023-02-08] MEDS: Ensure Plus High Protein 120 ML LIQUID PO ×2 (07:56→16:56)
[2023-02-08] MEDS: Fludrocortisone Acetate 0.1 MG Tablet 0.05 MG PO (07:56)
[2023-02-08] MEDS: Midodrine HCl 5 MG Tablet 10 MG PO ×3 (07:57→16:56)
[2023-02-08] MEDS: Na Biphos/Potassium Phosphate PACKET 1 PACKET PO ×2 (07:58→21:32)
[2023-02-08] MEDS: Nystatin Powder 15gm Bottle 1 APPLIC TOPICAL ×2 (08:01→21:31)
[2023-02-08] MEDS: Senna/Docusate Sodium 1 Tablet 2 TABLET PO ×2 (08:19→21:32)
[2023-02-08] MEDS: Potassium Chloride Oral Tablet 20 MEQ PO (08:19)
--- NOTE | 2023-02-08 10:16 | PCM.PROGNOTE ---
Subjective Subjective Bill was seen on team rounds today. Multiple family members were present. Afebrile VSS - BP is good. Orthostatics have not been done yet today. Maintaining appropriate oxygen saturation on RA Oral intake is good. Oral fluid intake yesterday was 1680. Discussed with nursing - no problems that need addressed. Sleeping well at night. Appetite is good. Affect is up beat. Reviewed the PT/OT/ST notes Medication list reviewed. All lab drawn this morning was personally reviewed. White blood cell count is normal at 5.8. Hemoglobin is 11.7, down from 12.6 however, I suspect this is due to better hydration. Platelet count is mildly decreased at 137. RDW standard deviation is markedly increased at 57. Sodium is 145 and the potassium is stable at 3.9. The BUN is 17 which is stable and the creatinine is 1.12 which is also stable. Calcium is within normal limits. He stood with OT for nearly 3 minutes today and had no lightheadedness. He c/o ERWIN but has no dyspnea at rest. Bill denies chest pain, palpitations, lightheadedness, nausea/vomiting/abdominal pain, dysuria, calf tenderness and pain. No cough. Objective Data Objective Data Vital Signs: Vital Signs Temp Pulse Resp BP Pulse Ox O2 Del Method O2 Flow Rate 98.1 F 76 16 136/77 H 95 Room Air 0 02/08/23 07:24 02/08/23 07:24 02/08/23 07:24 02/08/23 07:24 02/08/23 07:24 02/08/23 07:24 01/24/23 20:40 FiO2 21 01/24/23 20:40 Oxygen Flow Rate (L/min) 0 Oxygen Delivery Method Room Air Weight: 205 lb 4.006 oz Body Mass Index (BMI) 31.1 Intake & Output: Intake and Output for Last 24 Hours 02/06/23 02/07/23 02/08/23 23:59 23:59 23:59 Intake Total 2550 / 2550 2680 / 2680 220 / 220 Output Total 600 / 600 1300 / 1300 300 / 300 Balance 1950 / 1950 1380 / 1380 -80 / -80 Lab / Micro Data 02/08/23 05:36 02/08/23 05:36 Labs: Laboratory Results - last 24 hr 02/08/23 05:36: WBC 5.8, RBC 3.84 L, Hgb 11.7 L, Hct 37.2 L, MCV 96.9 H, MCH 30.5, MCHC 31.5 L, RDW Std Deviation 57.0 H, RDW Coeff of Radha 15.9 H, Plt Count 137 L, MPV 8.9, Sodium 145, Potassium 3.9, Chloride 115 H, Carbon Dioxide 27.0, Anion Gap 3 L, BUN 17, Creatinine 1.12, Estim Creat Clear Calc 46.65, Est GFR (MDRD) Af Amer 80, Est GFR (MDRD) Non-Af 66, BUN/Creatinine Ratio 15.2, Glucose 82, Calcium 8.7 Physical Exam Const alert and oriented x3 General Appearance: cooperative Orientation / Consciousness: Negative for confused Resp Resp Narrative: Very good air exchange, even in the bases. Coarse crackles in both bases that improve with deep breathing. No wheezing and no tachypnea. Cardio regular rate, regular rhythm and no gallops GI normal to inspection, nondistended, normoactive bowel sounds, soft to palpation and non-tender GI Narrative: Good bowel function. Skin Rashes: no rashes Wounds: Negative for wounds noted Psych affect normal Appearance: appropriate Attitude: No agitated Assessment & Plan Assessment/Plan (1) Debility: (2) Hemorrhagic cerebrovascular accident (CVA): (3) Subdural hematoma: (4) Subarachnoid hemorrhage: (5) Encephalomalacia: (6) Dysphagia: (7) Left-sided neglect: (8) Generalized weakness: (9) Orthostatic hypotension: (10) Dehydration: (11) Macrocytic anemia: (12) Chronic kidney disease, stage 3b: (13) Hyperlipidemia: (14) Coronary artery disease: (15) Atrial fibrillation: PLAN: He has been in a paced rhythm since he was admitted to rehab. 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 Continue therapy 2. If the orthostatics are negative will discontinue intravenous fluids but, put in a PRN order for fluids at night if the oral intake is less than 1200. 3. Because he is persistently anemic and the RDW continues to increase will order iron studies, B12 and folate. 4. Continue Florinef. If orthostatics are still positive in the AM will increase to 0.1 mg p.o. daily. Charges/Coding Visit Charges Inpatient E&M: 80509 Subs Hosp L2
[2023-02-08 10:18] VITALS: BP 145/77; BP 146/82; BP 87/29; PULSE 68; PULSE 70; PULSE 71
[2023-02-08 11:25] LABS: Ferritin 167 ng/mL (26-388); Iron 42 ug/dL (65-175); Iron Binding Capacity,Total 229 ug/dL (250-450); PERCENT IRON SATURATION 18.3 % (15.0-55.0)
[2023-02-08 12:16] LABS: Vitamin B12 466 pg/mL (211-911)
--- NOTE | 2023-02-08 13:10 | CASEMGMT ---
Social Work Team meeting held. Patient present as well as patient spouse and daughters. Patient plans to discharge to home with spouse. Patient with next insurance update due on 02/08/2023, this social worker psychiatric communicating to patient and patient family that unable to guarantee continued stay approval by insurance. Patient is making progress, plan is to continue with further care and treatment on the Inpatient Rehab Unit. PLAN: Home with spouse. Social Work to continue to follow. Juliana GRANADOS, ANNEMARIE-S
[2023-02-08] MEDS: Ascorbic Acid 500 MG Tablet 1000 MG PO (13:52)
[2023-02-08] MEDS: Ferrous Sulfate 325 MG Tablet PO (13:52)
--- NOTE | 2023-02-08 17:00 | NURSING ---
NS not infused at this time due to IV infiltration and needs new placement.
[2023-02-08] MEDS: QUEtiapine 25 MG Tablet 37.5 MG PO (21:29)
[2023-02-08] MEDS: Atorvastatin Calcium 10 MG Tablet PO (21:30)
[2023-02-08] MEDS: Mirtazapine 15 MG Tablet 7.5 MG PO (21:30)
[2023-02-08] MEDS: 0.9% Normal Saline 1,000 ML 50 ML IV (21:52)
[2023-02-08 22:00] VITALS: BP 142/68; PULSE 70; RESP 17; TEMP 36.7; O2SAT 96
[2023-02-09 06:00] VITALS: BMI 30.9
[2023-02-09] MEDS: Nystatin/Triamcin Oint 1 APPLIC TOPICAL ×3 (06:21→21:00)
[2023-02-09 07:46] VITALS: BP 160/64; PULSE 76; RESP 18; TEMP 36.8; O2SAT 96
[2023-02-09] MEDS: Ensure Plus High Protein 120 ML LIQUID PO ×2 (08:54→12:43)
[2023-02-09] MEDS: Na Biphos/Potassium Phosphate PACKET 1 PACKET PO ×2 (08:54→21:02)
[2023-02-09] MEDS: Menthol/Lanolin/Calamine/Znox 113 GM Tube 1 APPLIC TOPICAL ×2 (08:54→21:05)
[2023-02-09] MEDS: Midodrine HCl 5 MG Tablet 10 MG PO ×3 (08:55→18:08)
[2023-02-09] MEDS: Senna/Docusate Sodium 1 Tablet 2 TABLET PO (08:55)
[2023-02-09] MEDS: Potassium Chloride Oral Tablet 20 MEQ PO (08:55)
[2023-02-09] MEDS: Nystatin Powder 15gm Bottle 1 APPLIC TOPICAL ×2 (08:55→21:05)
[2023-02-09] MEDS: Fludrocortisone Acetate 0.1 MG Tablet PO (08:56)
[2023-02-09] MEDS: Ascorbic Acid 500 MG Tablet 1000 MG PO (12:44)
[2023-02-09] MEDS: Ferrous Sulfate 325 MG Tablet PO (12:45)
[2023-02-09 12:55] VITALS: BP 109/51; BP 138/68; BP 144/62; PULSE 67; PULSE 70; PULSE 77
--- NOTE | 2023-02-09 14:04 | PCM.PROGNOTE ---
Subjective Subjective Afebrile VSS -blood pressure is mildly elevated when he is lying down however it still drops when he stands. Heart rate does not significantly change with changes in posture. The blood pressure lying down was 144/62, sitting was 138/68 and standing was 109/51 which is the best its been. He denies any lightheadedness with standing and he was able to walk to and from the door in his room today. Maintaining appropriate oxygen saturation on RA Oral intake is good Discussed with nursing - no problems that need addressed. He is sleeping well and has a good appetite. Reviewed the PT/OT/ST notes Medication list reviewed. Leonard denies any change in his breathing and denies orthopnea. He also denies cephalgia, lightheadedness, chest pain, palpitations, nausea/vomiting/abdominal pain, dysuria, calf tenderness and pain. Objective Data Objective Data Vital Signs: Vital Signs Temp Pulse Resp BP Pulse Ox O2 Del Method O2 Flow Rate 98.2 F 67 18 138/68 H 96 Room Air 0 02/09/23 07:46 02/09/23 12:55 02/09/23 07:46 02/09/23 12:55 02/09/23 07:46 02/09/23 07:46 01/24/23 20:40 FiO2 21 01/24/23 20:40 Oxygen Flow Rate (L/min) 0 Oxygen Delivery Method Room Air Weight: 203 lb 0.732 oz Body Mass Index (BMI) 30.9 Intake & Output: Intake and Output for Last 24 Hours 02/07/23 02/08/23 02/09/23 23:59 23:59 23:59 Intake Total 2680 / 2680 1880 / 1940 620 / 620 Output Total 1300 / 1300 600 / 600 400 / 400 Balance 1380 / 1380 1280 / 1340 220 / 220 Lab / Micro Data 02/08/23 05:36 02/08/23 05:36 Physical Exam Const alert, oriented x3 and no apparent distress Constitutional Narrative: His mood is very good and he is very happy with the progress he is making. General Appearance: cooperative Resp clear to auscultation bilaterally Resp Narrative: The R base is clear today with excellent air exchange. The left base has a few coarse crackles that mostly resolve after a few deep breaths. Good air exchange throughout. No tachypnea and no pursed lip breathing. Cardio regular rate, regular rhythm and no gallops GI normal to inspection, nondistended, normoactive bowel sounds, soft to palpation and non-tender Extremity no calf tenderness General Extremity: Negative for edema Skin Skin Narrative: He has a patchy erythematous rash on his arms that has been present for years. He tells me that the lesions start a a blister and then they dry up. He has never seen a cable cutter and swager for this. He also has some areas of hypopigmentation and scarring and he tells me that the lesions itch. Assessment & Plan Assessment/Plan (1) PCT (porphyria cutanea tarda): PLAN: suspected the rash on the arms looks very much like PCT. Will recommend that he has a blood test for total porphyrins as an OP. Transaminases are but the bili and the AP are elevated. This would be important for other family members to know since this can be inherited. I also recommend that he see a cable cutter and swager. (2) Debility: (3) Hemorrhagic cerebrovascular accident (CVA): (4) Subdural hematoma: (5) Subarachnoid hemorrhage: (6) Encephalomalacia: (7) Dysphagia: (8) Left-sided neglect: (9) Generalized weakness: (10) Orthostatic hypotension: (11) Macrocytic anemia: (12) Chronic kidney disease, stage 3b: (13) Hyperlipidemia: (14) Coronary artery disease: (15) Atrial fibrillation: PLAN: He has been in a paced rhythm since he was admitted to rehab. 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 Continue therapy 2. We will leave the Florinef at 0.05 mg daily. I am happy with the standing blood pressure as it is today and he is asymptomatic. 3. Recommend a total porphyrin level as an outpatient for suspected PCT 4. He is making good progress with therapy and I am still hopeful that he will be able to go home at [facility] rather than a SNF Charges/Coding Visit Charges Inpatient E&M: 30844 Subs Hosp L2
[2023-02-09] MEDS: 0.9% Normal Saline 1,000 ML 50 ML IV (17:57)
[2023-02-09 19:56] VITALS: BP 102/56; PULSE 72; RESP 16; TEMP 36.8; O2SAT 94
[2023-02-09] MEDS: QUEtiapine 25 MG Tablet 37.5 MG PO (21:00)
[2023-02-09] MEDS: Mirtazapine 15 MG Tablet 7.5 MG PO (21:00)
[2023-02-09] MEDS: Atorvastatin Calcium 10 MG Tablet PO (21:01)
[2023-02-10] MEDS: Nystatin/Triamcin Oint 1 APPLIC TOPICAL (05:40)
[2023-02-10] MEDS: Menthol/Lanolin/Calamine/Znox 113 GM Tube 1 APPLIC TOPICAL ×3 (05:41→22:24)
[2023-02-10 06:00] VITALS: BMI 31.3
[2023-02-10 07:59] VITALS: BP 125/67; PULSE 79; RESP 16; TEMP 36.6; O2SAT 92
[2023-02-10] MEDS: Na Biphos/Potassium Phosphate PACKET 1 PACKET PO ×2 (09:19→22:02)
[2023-02-10] MEDS: Potassium Chloride Oral Tablet 20 MEQ PO (09:19)
[2023-02-10] MEDS: Midodrine HCl 5 MG Tablet 10 MG PO ×3 (09:19→17:26)
[2023-02-10] MEDS: Fludrocortisone Acetate 0.1 MG Tablet PO (09:19)
[2023-02-10] MEDS: Ensure Plus High Protein 120 ML LIQUID PO ×3 (09:19→17:27)
[2023-02-10] MEDS: Nystatin Powder 15gm Bottle 1 APPLIC TOPICAL ×2 (09:23→22:04)
[2023-02-10] MEDS: Ferrous Sulfate 325 MG Tablet PO (11:46)
[2023-02-10] MEDS: Ascorbic Acid 500 MG Tablet 1000 MG PO (11:46)
[2023-02-10 19:27] VITALS: BP 147/77; PULSE 70; RESP 18; TEMP 36.8; O2SAT 97
[2023-02-10 22:00] VITALS: PULSE 70; O2SAT 97
[2023-02-10] MEDS: Senna/Docusate Sodium 1 Tablet 2 TABLET PO (22:02)
[2023-02-10] MEDS: Mirtazapine 15 MG Tablet 7.5 MG PO (22:02)
[2023-02-10] MEDS: Atorvastatin Calcium 10 MG Tablet PO (22:02)
[2023-02-10] MEDS: QUEtiapine 25 MG Tablet 37.5 MG PO (22:03)
[2023-02-11 06:03] VITALS: BMI 31.7
[2023-02-11] MEDS: Potassium Chloride Oral Tablet 20 MEQ PO (08:00)
[2023-02-11] MEDS: Midodrine HCl 5 MG Tablet 10 MG PO ×3 (08:00→17:01)
[2023-02-11] MEDS: Fludrocortisone Acetate 0.1 MG Tablet PO (08:00)
[2023-02-11 08:07] VITALS: BP 129/66; PULSE 71; RESP 16; TEMP 36.2; O2SAT 94
[2023-02-11] MEDS: Na Biphos/Potassium Phosphate PACKET 1 PACKET PO ×2 (09:43→19:37)
[2023-02-11] MEDS: Ensure Plus High Protein 120 ML LIQUID PO ×3 (09:43→17:05)
[2023-02-11] MEDS: Menthol/Lanolin/Calamine/Znox 113 GM Tube 1 APPLIC TOPICAL ×2 (09:43→19:38)
[2023-02-11] MEDS: Nystatin Powder 15gm Bottle 1 APPLIC TOPICAL ×2 (09:43→19:39)
[2023-02-11] MEDS: Senna/Docusate Sodium 1 Tablet 2 TABLET PO ×2 (09:44→19:37)
[2023-02-11] MEDS: Ferrous Sulfate 325 MG Tablet PO (11:56)
[2023-02-11] MEDS: Ascorbic Acid 500 MG Tablet 1000 MG PO (11:56)
[2023-02-11] MEDS: Magnesium Hydroxide 30 ML UDC PO (15:30)
[2023-02-11 19:30] VITALS: BP 141/69; PULSE 70; RESP 18; TEMP 36.4; O2SAT 95
[2023-02-11] MEDS: QUEtiapine 25 MG Tablet 37.5 MG PO (19:37)
[2023-02-11] MEDS: Mirtazapine 15 MG Tablet 7.5 MG PO (19:38)
[2023-02-11] MEDS: Atorvastatin Calcium 10 MG Tablet PO (19:38)
--- NOTE | 2023-02-12 03:39 | NURSING ---
REVIEWED AND AGREE WITH Jame ADAMES, DOCUMENTATION AND ASSESSMENT CHARTING.
[2023-02-12] MEDS: 0.9% Saline Lock 10 ML Syringe IV (04:56)
[2023-02-12 06:00] VITALS: BMI 31.8
--- NOTE | 2023-02-12 07:52 | PCM.PROGNOTE ---
Subjective Subjective Afebrile VSS-systolic blood pressure is sometimes high and he is still mildly positive on orthostatics however he denies dizziness and has had no syncope in many days. Maintaining appropriate oxygen saturation on RA Oral intake of fluids is much better. He is also eating well. Discussed with nursing - no problems that need addressed Reviewed the PT/OT/ST notes Medication list reviewed. I observed Leonard ambulating back to his room from the therapy room yesterday with the RW and he had a good thea with no LOB. He denied lightheadedness. He is sleeping well at night and has good fluid intake and a good appetite. He denies pain, cough, SOB, dysuria and calf tenderness. Objective Data Objective Data Vital Signs: Vital Signs Temp Pulse Resp BP Pulse Ox O2 Del Method O2 Flow Rate 97.6 F L 70 18 141/69 H 95 Room Air 0 02/11/23 19:30 02/11/23 19:30 02/11/23 19:30 02/11/23 19:30 02/11/23 19:30 02/11/23 19:30 01/24/23 20:40 FiO2 21 01/24/23 20:40 Oxygen Flow Rate (L/min) 0 Oxygen Delivery Method Room Air Weight: 208 lb 8.917 oz Body Mass Index (BMI) 31.7 Intake & Output: Intake and Output for Last 24 Hours 02/10/23 02/11/23 02/12/23 23:59 23:59 23:59 Intake Total 1865.83 / 1865.83 1530 / 1530 Output Total 500 / 500 600 / 600 100 / 100 Balance 1365.83 / 1365.83 930 / 930 -100 / -100 Lab / Micro Data 02/08/23 05:36 02/08/23 05:36 Physical Exam Const alert, oriented x3 and no apparent distress General Appearance: cooperative HEENT Mouth: dry mucous membranes Resp normal respiratory effort, normal air movement and clear to auscultation bilaterally Effort and Inspection: Negative for tachypneic or labored Cardio regular rate, regular rhythm and no gallops Cardio Narrative: no ectopy GI normal to inspection, nondistended, normoactive bowel sounds, soft to palpation and non-tender GI Narrative: No guarding with palpation. Extremity no calf tenderness General Extremity: Negative for edema Skin Rashes: no rashes Wounds: Negative for wounds noted Psych affect normal Assessment & Plan Assessment/Plan (1) PCT (porphyria cutanea tarda): (2) Debility: (3) Hemorrhagic cerebrovascular accident (CVA): (4) Subdural hematoma: (5) Subarachnoid hemorrhage: (6) Encephalomalacia: (7) Dysphagia: (8) Left-sided neglect: (9) Generalized weakness: (10) Orthostatic hypotension: (11) Macrocytic anemia: (12) Chronic kidney disease, stage 3b: (13) Hyperlipidemia: (14) Coronary artery disease: (15) Atrial fibrillation: (16) History of placement of leadless cardiac pacemaker: (17) Secondary pulmonary arterial hypertension: (18) Essential (primary) hypertension: (19) Restrictive airway disease: (20) Obesity: (21) History of complete heart block: (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 Continue therapy 2. Making excellent progress with therapy 3. recheck a CBC and BMP on Wednesday. 4. He is no longer confused in the evening and he is sleeping well. Will try decreasing Seroquel to 25 mg nightly. 5. Continue Florinef and midodrine for severe orthostatic hypotension. Charges/Coding Visit Charges Inpatient E&M: 29960 Subs Hosp L2
[2023-02-12 08:33] VITALS: BP 124/68; PULSE 78; RESP 15; TEMP 36.3; O2SAT 94
[2023-02-12] MEDS: Fludrocortisone Acetate 0.1 MG Tablet PO (09:46)
[2023-02-12] MEDS: Ensure Plus High Protein 120 ML LIQUID PO ×3 (09:46→17:07)
[2023-02-12] MEDS: Nystatin Powder 15gm Bottle 1 APPLIC TOPICAL ×2 (09:47→20:33)
[2023-02-12] MEDS: Senna/Docusate Sodium 1 Tablet 2 TABLET PO ×2 (09:47→20:41)
[2023-02-12] MEDS: Midodrine HCl 5 MG Tablet 10 MG PO ×3 (09:47→17:07)
[2023-02-12] MEDS: Potassium Chloride Oral Tablet 20 MEQ PO (09:47)
[2023-02-12] MEDS: Na Biphos/Potassium Phosphate PACKET 1 PACKET PO ×2 (09:47→20:40)
[2023-02-12] MEDS: Menthol/Lanolin/Calamine/Znox 113 GM Tube 1 APPLIC TOPICAL ×2 (09:48→20:33)
[2023-02-12] MEDS: Ferrous Sulfate 325 MG Tablet PO (12:48)
[2023-02-12] MEDS: Ascorbic Acid 500 MG Tablet 1000 MG PO (12:49)
[2023-02-12 18:36] LABS: Bacteria 0 SEEN /hpf (None Seen); Mucous, Urine 0 SEEN /hpf (<or=2+); Red Blood Cells-Urine 0 SEEN /hpf (0-5)
[2023-02-12 18:55] LABS: Color, Urine Yellow (Yellow); Glucose, Dipstick Normal (Normal); Ketone-Dipstick 5 mg/dl (Negative); Leukocyte Esterase-Dipstick 25 /ul (Negative); Nitrite-Dipstick Negative (Negative); Occult Blood-Urine Negative /ul (Negative); Protein-Dipstick 30 mg/dl (Negative); Urine Bilirubin Dipstick Negative (Negative); Urine Clarity Clear (Clear); Urine Urobilinogen Normal (Normal)
[2023-02-12 18:57] VITALS: BP 128/65; PULSE 67; RESP 16; TEMP 37.2; O2SAT 96
[2023-02-12 19:20] LABS: Amorphous Sediment 1+ URATE; Squamous Epithelial Cells - UA 0-5 SEEN /hpf (0-5); White Blood Cells 0-5 SEEN /hpf (0-5)
[2023-02-12] MEDS: QUEtiapine 25 MG Tablet PO (20:40)
[2023-02-12] MEDS: Mirtazapine 15 MG Tablet 7.5 MG PO (20:40)
[2023-02-12] MEDS: Atorvastatin Calcium 10 MG Tablet PO (20:40)
[2023-02-13 06:00] VITALS: BMI 31.9
[2023-02-13] MEDS: Midodrine HCl 5 MG Tablet 10 MG PO ×2 (09:51→11:57)
[2023-02-13] MEDS: Potassium Chloride Oral Tablet 20 MEQ PO (09:52)
[2023-02-13] MEDS: Fludrocortisone Acetate 0.1 MG Tablet PO (09:52)
[2023-02-13] MEDS: Na Biphos/Potassium Phosphate PACKET 1 PACKET PO ×2 (09:52→20:20)
[2023-02-13] MEDS: Menthol/Lanolin/Calamine/Znox 113 GM Tube 1 APPLIC TOPICAL ×2 (09:52→20:20)
[2023-02-13] MEDS: Senna/Docusate Sodium 1 Tablet 2 TABLET PO ×2 (09:53→20:19)
[2023-02-13] MEDS: Nystatin Powder 15gm Bottle 1 APPLIC TOPICAL ×2 (09:53→20:20)
[2023-02-13] MEDS: Ensure Plus High Protein 120 ML LIQUID PO ×3 (09:55→17:24)
[2023-02-13 10:00] VITALS: BP 136/69; PULSE 70; RESP 16; TEMP 36.5; O2SAT 93
[2023-02-13] MEDS: Ascorbic Acid 500 MG Tablet 1000 MG PO (11:57)
[2023-02-13] MEDS: Ferrous Sulfate 325 MG Tablet PO (11:57)
[2023-02-13 19:40] VITALS: BP 156/76; PULSE 73; RESP 18; TEMP 36.8; O2SAT 97
[2023-02-13] MEDS: Mirtazapine 15 MG Tablet 7.5 MG PO (20:18)
[2023-02-13] MEDS: QUEtiapine 25 MG Tablet PO (20:19)
[2023-02-13] MEDS: Atorvastatin Calcium 10 MG Tablet PO (20:19)
--- NOTE | 2023-02-14 03:29 | NURSING ---
Reviewed and agree with Jame ADAMES, documentation and assessment charting.
[2023-02-14 06:00] VITALS: BMI 32.2
[2023-02-14 07:15] VITALS: BP 119/63; PULSE 72; RESP 16; TEMP 36.2; O2SAT 96
[2023-02-14] MEDS: Midodrine HCl 5 MG Tablet 10 MG PO ×2 (08:33→13:14)
[2023-02-14] MEDS: Na Biphos/Potassium Phosphate PACKET 1 PACKET PO ×2 (08:33→21:00)
[2023-02-14] MEDS: Potassium Chloride Oral Tablet 20 MEQ PO (08:34)
[2023-02-14] MEDS: Senna/Docusate Sodium 1 Tablet 2 TABLET PO ×2 (08:35→21:01)
[2023-02-14] MEDS: Ensure Plus High Protein 120 ML LIQUID PO ×3 (08:35→17:48)
[2023-02-14] MEDS: Fludrocortisone Acetate 0.1 MG Tablet PO (08:35)
[2023-02-14] MEDS: Menthol/Lanolin/Calamine/Znox 113 GM Tube 1 APPLIC TOPICAL ×2 (08:40→21:01)
[2023-02-14] MEDS: Nystatin Powder 15gm Bottle 1 APPLIC TOPICAL ×2 (08:41→21:04)
[2023-02-14 10:00] VITALS: PULSE 72
[2023-02-14] MEDS: Ascorbic Acid 500 MG Tablet 1000 MG PO (13:14)
[2023-02-14] MEDS: Ferrous Sulfate 325 MG Tablet PO (13:14)
[2023-02-14 20:53] VITALS: RESP 18
[2023-02-14] MEDS: Mirtazapine 15 MG Tablet 7.5 MG PO (21:00)
[2023-02-14] MEDS: QUEtiapine 25 MG Tablet PO (21:00)
[2023-02-14] MEDS: Atorvastatin Calcium 10 MG Tablet PO (21:01)
[2023-02-14 22:00] VITALS: BP 160/77; PULSE 70; RESP 14; TEMP 36.8; O2SAT 95
[2023-02-15 05:35] LABS: Hematocrit 35.2 % (40-54); Mean Corp Hgb Conc 31.3 g/dL (32-36); Mean Corpuscular Hgb 30.7 pg (27.0-32.0); Mean Corpuscular Volume 98.3 fL (80-94); Mean Platelet Vol. 9.3 fl (6.2-12.0); Platelet Count 142 K/mm3 (150-450); RBC Distribution Width CV 15.8 % (11.6-14.6); RBC Distribution Width SD 56.5 fl (35.1-43.9); Red Blood Count 3.58 M/mm3 (4.6-6.2); White Blood Count 5.9 K/mm3 (4.4-11.0)
[2023-02-15 06:04] LABS: Anion Gap 2 (5-15); BUN 20 mg/dL (7-18); BUN/Creat Ratio 20.4 RATIO (10-20); Calcium,Total 8.5 mg/dL (8.5-10.1); Chloride 115 mmol/L (98-107); Creatinine, Serum 0.98 mg/dL (0.70-1.30); EST Glomerular Filtration Rate 77 mL/min (>60); Est Glom Filt Rate - Afr Amer 94 mL/min (>60); Estimated Creatinine Clearance 53.32 ml/min; Glucose 106 mg/dL (74-106); Sodium Level 145 mmol/L (136-145)
[2023-02-15 06:23] VITALS: BMI 32.8
[2023-02-15 08:06] VITALS: BP 119/69; PULSE 74; RESP 16; TEMP 36.2; O2SAT 95
[2023-02-15] MEDS: Midodrine HCl 5 MG Tablet 10 MG PO ×3 (08:35→17:34)
[2023-02-15] MEDS: Potassium Chloride Oral Tablet 20 MEQ PO ×3 (08:35→17:37)
[2023-02-15] MEDS: Ensure Plus High Protein 120 ML LIQUID PO ×3 (08:35→17:34)
[2023-02-15] MEDS: Senna/Docusate Sodium 1 Tablet 2 TABLET PO ×2 (08:36→20:53)
[2023-02-15] MEDS: Na Biphos/Potassium Phosphate PACKET 1 PACKET PO ×2 (08:36→20:52)
[2023-02-15] MEDS: Fludrocortisone Acetate 0.1 MG Tablet PO (08:36)
[2023-02-15] MEDS: Nystatin Powder 15gm Bottle 1 APPLIC TOPICAL ×2 (08:46→20:54)
[2023-02-15] MEDS: Menthol/Lanolin/Calamine/Znox 113 GM Tube 1 APPLIC TOPICAL ×2 (08:47→20:54)
[2023-02-15 09:30] VITALS: BMI 32.8
[2023-02-15 09:48] VITALS: RESP 16
--- NOTE | 2023-02-15 10:17 | PCM.PROGNOTE ---
Subjective Subjective Afebrile VSS Maintaining appropriate oxygen saturation on RA-95% Oral intake is good Oral fluid intake yesterday was 1470. Urine output was 300. UO likely decreased due to Florinef. Has been on Lasix in the past and Metolazone once a week and these have been on hold due to severe orthostatic hypotension. Weight is up about 10 lbs since last Wednesday. I think his dry weight should be around 206-208. Weight today is 216.3. Discussed with nursing - weight is increased and he has pitting edema. Reviewed the PT/OT/ST notes Medication list reviewed. Leonard is c/o swelling and he is worried that his wt is up. I explained to him that his urine OP is down due to the Florinef and we are going to have to restart the Lasix and try and keep his fluid balance about even. He denies lightheadedness, chest pain, shortness of breath at rest, palpitations, nausea/vomiting/abdominal pain, dysuria and calf tenderness. He does have some dyspnea on exertion. All lab drawn today was personally reviewed. The white blood cell count is normal at 5.9 and hemoglobin is 11.0, down from 11.7 last week and I suspect the decrease is due to fluid overload today. Platelets are mildly decreased at 142,000. Sodium is 145 and the potassium is 4.0. CO2 is 28 and the BUN is 20 with a creatinine of 0.98 UA last week was not significant for urinary tract infection and the culture grew mixed gram-positive and gram-negative organisms which are contaminants. There was no bacteria on the US and only 0-5 WBC's. Objective Data Objective Data Vital Signs: Vital Signs Temp Pulse Resp BP Pulse Ox O2 Del Method O2 Flow Rate 97.2 F L 74 16 119/69 95 Room Air 0 02/15/23 08:06 02/15/23 08:06 02/15/23 09:48 02/15/23 08:06 02/15/23 08:06 02/15/23 09:48 01/24/23 20:40 FiO2 21 01/24/23 20:40 Oxygen Flow Rate (L/min) 0 Oxygen Delivery Method Room Air Weight: 216 lb 4.375 oz Body Mass Index (BMI) 32.8 Intake & Output: Intake and Output for Last 24 Hours 07/03/3102/14/23 02/15/23 23:59 23:59 23:59 Intake Total 1480 / 1510 1470 / 1470 860 / 860 Output Total 450 / 450 300 / 300 Balance 1030 / 1060 1170 / 1170 860 / 860 Lab / Micro Data 02/15/23 05:00 02/16/23 05:14 Labs: Laboratory Results - last 24 hr 02/15/23 05:00: WBC 5.9, RBC 3.58 L, Hgb 11.0 L, Hct 35.2 L, MCV 98.3 H, MCH 30.7, MCHC 31.3 L, RDW Std Deviation 56.5 H, RDW Coeff of Radha 15.8 H, Plt Count 142 L, MPV 9.3, Sodium 145, Potassium 4.0, Chloride 115 H, Carbon Dioxide 28.0, Anion Gap 2 L, BUN 20 H, Creatinine 0.98, Estim Creat Clear Calc 53.32, Est GFR (MDRD) Af Amer 94, Est GFR (MDRD) Non-Af 77, BUN/Creatinine Ratio 20.4 H, Glucose 106, Calcium 8.5 Micro: Microbiology 02/12/23 18:30 Urine, Clean Catch Urine Culture - Final Mixed Gram Pos & Gram Neg Org Physical Exam Const alert and oriented x3 Constitutional Narrative: Sitting in the recliner at the bedside. No conversational dyspnea. General Appearance: cooperative Resp Resp Narrative: Poor resp effort......he is hunched down in the chair and I think this is limiting his diaphragmatic excursion. Scatter inspiratory wheezing and coarse crackles in both bases that do not change with a few deep breaths. Effort and Inspection: Negative for tachypneic, respiratory distress, labored or uses accessory muscles Cardio regular rate, regular rhythm and no gallops GI normal to inspection, nondistended, normoactive bowel sounds, soft to palpation and non-tender Extremity Extremity Narrative: He has pitting edema of both ankles and some pitting edema of the Left thigh posteriorly and the left hand. I suspect he was laying on his left side last night. General Extremity: edema Skin Rashes: no rashes Psych affect normal Assessment & Plan Assessment/Plan (1) PCT (porphyria cutanea tarda): (2) Debility: (3) Hemorrhagic cerebrovascular accident (CVA): (4) Subdural hematoma: (5) Subarachnoid hemorrhage: (6) Encephalomalacia: (7) Dysphagia: (8) Left-sided neglect: (9) Generalized weakness: (10) Orthostatic hypotension: (11) Macrocytic anemia: (12) Chronic kidney disease, stage 3b: (13) Hyperlipidemia: (14) Coronary artery disease: (15) Atrial fibrillation: (16) History of placement of leadless cardiac pacemaker: (17) Secondary pulmonary arterial hypertension: (18) Essential (primary) hypertension: (19) Restrictive airway disease: (20) Obesity: (21) History of complete heart block: (22) Hemianopia, homonymous, left: (23) Diastolic CHF: QUALIFIERS: Heart failure chronicity: acute Qualified Code(s): I50.31 - Acute diastolic (congestive) heart failure PLAN: Plan 1. Continue therapy 2. Lasix 40 mg IV today and 40 mEq of potassium. 3. BMP and BNP in the a.m. 4. Continue daily weights 5. After we get his weight back down to 208 will start regular schedule doses of Lasix PO to keep the wt from 206-208. Charges/Coding Visit Charges Inpatient E&M: 53832 Subs Hosp L2
[2023-02-15] MEDS: Furosemide 40 MG/4 ML Vial IV (10:28)
[2023-02-15] MEDS: 0.9% Saline Lock 10 ML Syringe IV (10:28)
--- NOTE | 2023-02-15 13:01 | CASEMGMT ---
Addendum entered by Phyllis Vela 02/16/23 15:31: SW spoke with Director and reimbursement was received from insurance, thus pt can admit to TCU pending precert from insurance. SW phoned to update. Advised precert can be denied and pt can pay privately, but precert can be submitted afterall. expressed understanding and appreciation. Plan: DC to TCU, pending precert, pending LCD given on RU Addendum entered by Phyllis Vela 02/15/23 16:34: Family requesting referral to TCU, understanding pt's stay cannot be billed to insurance. stated the funds from previous stay have not be refunded back, inquiring if those funds can be used toward this stay. SW sent secure email to Director to inquire. SW encouraged to choose second choice in case TCU cannot accept. Addendum entered by Phyllis Vela 02/15/23 13:35: SW updated family that insurance approved with [employer] 02/19. Original Note: Social Work IDT met with patient, , brother and RICHARD then dtr via conference call for Team meeting. Discussed patient's progress in PT/OT/ST/SN. Educated to [facility] insurance with [employer] 02/12 and continued stay is not guaranteed with each review. Although pt is making good progress, still is unable to care for pt at home at current LOC. Broached alternative DC plans. Offered SNF and [facility] at home and the financial liability. Family requested a SNF list and inquired about TCU. SW educated to TCU only can be private pay as insurance has not reimbursed TCU for pt's previous stay, and per Director, unable to accept insurance until reimbursement is processed. Family expressed understanding. SW printed and provided list to with quality and resource data of are SNFs via [employer]. Will continue to follow. Phyllis Vela, ROBERTA DONNELLYW
[2023-02-15] MEDS: Ascorbic Acid 500 MG Tablet 1000 MG PO (13:52)
[2023-02-15] MEDS: Ferrous Sulfate 325 MG Tablet PO (13:53)
[2023-02-15] MEDS: Mirtazapine 15 MG Tablet 7.5 MG PO (20:53)
[2023-02-15] MEDS: Atorvastatin Calcium 10 MG Tablet PO (20:54)
[2023-02-15] MEDS: QUEtiapine 25 MG Tablet PO (20:54)
[2023-02-15] MEDS: Nystatin/Triamcin Cream Tube 1 APPLIC TOPICAL (20:55)
[2023-02-15 21:04] VITALS: BP 131/70; PULSE 71; RESP 16; TEMP 36.4; O2SAT 95
[2023-02-16 05:46] LABS: BNP,B-Type NATRIURETIC PEPTIDE 210.5 pg/mL (0-100)
[2023-02-16 05:50] LABS: Anion Gap 1 (5-15); BUN 20 mg/dL (7-18); BUN/Creat Ratio 18.3 RATIO (10-20); Calcium,Total 8.8 mg/dL (8.5-10.1); Chloride 112 mmol/L (98-107); Creatinine, Serum 1.09 mg/dL (0.70-1.30); EST Glomerular Filtration Rate 68 mL/min (>60); Est Glom Filt Rate - Afr Amer 83 mL/min (>60); Estimated Creatinine Clearance 47.94 ml/min; Glucose 91 mg/dL (74-106); Potassium 4.3 mmol/L (3.5-5.1); Sodium Level 144 mmol/L (136-145)
[2023-02-16 06:00] VITALS: BMI 31.8
[2023-02-16 07:46] VITALS: BP 131/59; PULSE 80; RESP 16; TEMP 36.8; O2SAT 93
[2023-02-16] MEDS: Ensure Plus High Protein 120 ML LIQUID PO ×3 (08:43→16:54)
[2023-02-16] MEDS: Midodrine HCl 5 MG Tablet 10 MG PO ×3 (08:43→16:54)
[2023-02-16] MEDS: Fludrocortisone Acetate 0.1 MG Tablet PO (08:43)
[2023-02-16] MEDS: Na Biphos/Potassium Phosphate PACKET 1 PACKET PO ×2 (08:44→21:30)
[2023-02-16] MEDS: Senna/Docusate Sodium 1 Tablet 2 TABLET PO (08:44)
[2023-02-16] MEDS: Nystatin Powder 15gm Bottle 1 APPLIC TOPICAL ×2 (08:46→21:33)
[2023-02-16] MEDS: Menthol/Lanolin/Calamine/Znox 113 GM Tube 1 APPLIC TOPICAL ×2 (08:46→21:32)
[2023-02-16] MEDS: Nystatin/Triamcin Cream Tube 1 APPLIC TOPICAL ×2 (08:46→21:32)
--- NOTE | 2023-02-16 12:05 | PCM.PROGNOTE ---
Subjective Subjective Afebrile VSS Maintaining appropriate oxygen saturation on RA Oral intake is good. Fluid intake yesterday was 1580 cc. OP is listed as 1200 but, he also had some urine incontinence and he lost 6 pounds so I suspect that he is at least 2500 negative yesterday. His weight today is 210.3 pounds, down from 216.3 pounds yesterday. Discussed with nursing - no problems that need addressed Reviewed the PT/OT/ST notes Medication list reviewed. All lab was personally reviewed. Sodium is 144 and the potassium is 4.3 today. Serum bicarb is high normal at 31. The BUN is 20 and the creatinine is 1.09, up from 0.98 yesterday. BUNs/creatinine ratio is 18.3. The BNP is 210 which is up from 158 on 01/24/23. Leonard is still feeling a little SOB. He denies lightheadedness and CP. No palpitations, N/V/abd pain, dysuria or calf tenderness. Slept well last night and he is eating well. Objective Data Objective Data Vital Signs: Vital Signs Temp Pulse Resp BP Pulse Ox O2 Del Method O2 Flow Rate 98.3 F 80 16 131/59 H 93 Room Air 0 02/16/23 07:46 02/16/23 07:46 02/16/23 07:46 02/16/23 07:46 02/16/23 07:46 02/16/23 09:35 01/24/23 20:40 FiO2 21 01/24/23 20:40 Oxygen Flow Rate (L/min) 0 Oxygen Delivery Method Room Air Weight: 210 lb 5.136 oz Body Mass Index (BMI) 31.8 Intake & Output: Intake and Output for Last 24 Hours 02/14/23 02/15/23 02/16/23 23:59 23:59 23:59 Intake Total 1470 / 1470 1580 / 1580 240 / 240 Output Total 300 / 300 1200 / 1500 400 / 400 Balance 1170 / 1170 380 / 80 -160 / -160 Lab / Micro Data 02/15/23 05:00 02/16/23 05:14 Labs: Laboratory Results - last 24 hr 02/16/23 05:14: Sodium 144, Potassium 4.3, Chloride 112 H, Carbon Dioxide 31.0, Anion Gap 1 L, BUN 20 H, Creatinine 1.09, Estim Creat Clear Calc 47.94, Est GFR (MDRD) Af Amer 83, Est GFR (MDRD) Non-Af 68, BUN/Creatinine Ratio 18.3, Glucose 91, Calcium 8.8, B-Natriuretic Peptide 210.5 H Micro: Microbiology 02/12/23 18:30 Urine, Clean Catch Urine Culture - Final Mixed Gram Pos & Gram Neg Org Physical Exam Const alert, oriented x3 and no apparent distress General Appearance: cooperative Resp Resp Narrative: Much better air exchange today and he has no wheezing. He does still have rales in both bases. No conversational dyspnea today and no SOB at rest. Effort and Inspection: Negative for tachypneic or labored Cardio regular rate and regular rhythm Cardio Narrative: Distant, no gallops appreciated. GI normal to inspection, nondistended, normoactive bowel sounds, soft to palpation and non-tender GI Narrative: having regular BM's Extremity Extremity Narrative: No as much pitting in the posterior thighs today. General Extremity: edema Skin General Skin Exam: no breakdown Wounds: Negative for wounds noted Psych affect normal Assessment & Plan Assessment/Plan (1) Debility: (2) Hemorrhagic cerebrovascular accident (CVA): (3) Subdural hematoma: (4) Subarachnoid hemorrhage: (5) Encephalomalacia: (6) Dysphagia: QUALIFIERS: Dysphagia type: oropharyngeal phase Qualified Code(s): R13.12 - Dysphagia, oropharyngeal phase (7) Left-sided neglect: (8) Generalized weakness: (9) Orthostatic hypotension: (10) Macrocytic anemia: (11) Chronic kidney disease, stage 3b: (12) Hyperlipidemia: QUALIFIERS: Hyperlipidemia type: unspecified Qualified Code(s): E78.5 - Hyperlipidemia, unspecified (13) Coronary artery disease: QUALIFIERS: Coronary Disease-Associated Artery/Lesion type: [place] artery [place] vs. transplanted heart: [place] heart Associated angina: without angina Qualified Code(s): I25.10 - Atherosclerotic heart disease of [place] coronary artery without angina pectoris (14) Atrial fibrillation: QUALIFIERS: Atrial fibrillation type: paroxysmal Qualified Code(s): I48.0 - Paroxysmal atrial fibrillation (15) History of placement of leadless cardiac pacemaker: (16) Secondary pulmonary arterial hypertension: (17) Essential (primary) hypertension: (18) Restrictive airway disease: (19) Obesity: QUALIFIERS: Obesity type: due to excess calories Obesity classification: adult class 1 (BMI 30 - 34.9) Serious obesity comorbidity presence: with serious comorbidity Body mass index: BMI 32.0-32.9 Qualified Code(s): E66.09 - Other obesity due to excess calories; Z68.32 - Body mass index [BMI] 32.0-32.9, adult (20) History of complete heart block: (21) Hemianopia, homonymous, left: (22) Diastolic CHF: QUALIFIERS: Heart failure chronicity: acute Qualified Code(s): I50.31 - Acute diastolic (congestive) heart failure (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 Continue therapy 2. Lasix 40 mg IV again today with an extra 20 mEq of potassium. 3. Continue daily weights 4. Recheck a BMP on 5. Would like to get his weight down to 206 pounds because he had minimal edema and lungs were CTA at this weight. Charges/Coding Visit Charges Inpatient E&M: 33203 Subs Hosp L2
[2023-02-16] MEDS: Ferrous Sulfate 325 MG Tablet PO (12:12)
[2023-02-16] MEDS: Ascorbic Acid 500 MG Tablet 1000 MG PO (12:13)
[2023-02-16] MEDS: 0.9% Saline Lock 10 ML Syringe IV ×2 (12:21→15:01)
[2023-02-16] MEDS: Potassium Chloride Oral Tablet 20 MEQ PO ×3 (13:07→16:54)
[2023-02-16] MEDS: Furosemide 40 MG/4 ML Vial IV (15:01)
[2023-02-16 19:52] VITALS: BP 133/70; PULSE 74; RESP 16; TEMP 36.7; O2SAT 97
[2023-02-16] MEDS: Atorvastatin Calcium 10 MG Tablet PO (21:30)
[2023-02-16] MEDS: Mirtazapine 15 MG Tablet 7.5 MG PO (21:30)
[2023-02-16] MEDS: QUEtiapine 25 MG Tablet PO (21:30)
[2023-02-16] MEDS: Acetaminophen 500 MG Tablet 1000 MG PO (21:30)
[2023-02-17 06:00] VITALS: BMI 32.3
[2023-02-17] MEDS: Fludrocortisone Acetate 0.1 MG Tablet PO (07:52)
[2023-02-17] MEDS: Ensure Plus High Protein 120 ML LIQUID PO ×3 (07:53→15:58)
[2023-02-17] MEDS: Midodrine HCl 5 MG Tablet 10 MG PO ×3 (07:53→15:50)
[2023-02-17 08:29] VITALS: BP 148/77; PULSE 73; RESP 16; TEMP 36.3; O2SAT 95
[2023-02-17] MEDS: Senna/Docusate Sodium 1 Tablet 2 TABLET PO ×2 (09:48→21:14)
[2023-02-17] MEDS: Na Biphos/Potassium Phosphate PACKET 1 PACKET PO ×2 (09:48→21:14)
--- NOTE | 2023-02-17 09:49 | PN_ITS ---
Subjective Subjective Afebrile VSS Maintaining appropriate oxygen saturation on RA Oral intake is good. He had 1420 n.p.o. fluid yesterday. Urine output was 1550+ incontinence. wt today is 213......? was 210 yesterday and he definitely had more out than in. Discussed with nursing - no problems that need addressed Reviewed the PT/OT/ST notes Medication list reviewed. Will get another dose of IV Lasix today after his therapy has finished for the day. Leonard is still c/o ERWIN. No cough and no CP or palpitations. Denies light headedness and he is very steady walking today. No dysuria and no calf pain. Objective Data Objective Data Vital Signs: Vital Signs Temp Pulse Resp BP Pulse Ox O2 Del Method O2 Flow Rate 97.4 F L 73 16 148/77 H 95 Room Air 0 02/17/23 08:29 02/17/23 08:29 02/17/23 08:29 02/17/23 08:29 02/17/23 08:29 02/17/23 08:29 01/24/23 20:40 FiO2 21 01/24/23 20:40 Oxygen Flow Rate (L/min) 0 Oxygen Delivery Method Room Air Weight: 212 lb 15.465 oz Body Mass Index (BMI) 32.3 Intake & Output: Intake and Output for Last 24 Hours 02/15/23 02/16/23 02/17/23 23:59 23:59 23:59 Intake Total 1580 / 1580 1420 / 1540 600 / 600 Output Total 1200 / 1500 1550 / 1550 200 / 200 Balance 380 / 80 -130 / -10 400 / 400 Lab / Micro Data 02/15/23 05:00 02/16/23 05:14 Micro: Microbiology 02/12/23 18:30 Urine, Clean Catch Urine Culture - Final Mixed Gram Pos & Gram Neg Org Physical Exam Const alert and no apparent distress General Appearance: cooperative HEENT moist oral mucous membranes Resp Resp Narrative: crackles in the bases BL. Good air exchange today. Not tachypneic and no conversational dyspnea. Cardio regular rate and regular rhythm Cardio Narrative: Distant heart sounds. No gallop appreciated. No ectopy GI normal to inspection, nondistended, normoactive bowel sounds, soft to palpation and non-tender GI Narrative: Good bowel function Inspection: Negative for abdominal distention Extremity no calf tenderness Extremity Narrative: Still with pitting edema of both ankles and also has pitting edema in the R posterior thigh. Skin Wounds: Negative for wounds noted Wound Narrative: The rash on the arms is clearing up since he has been in rehab. Neuro Neuro Narrative: Ambulating with the WW at a good pace at SBA with no loss of balance. Endurance is increasing. Assessment & Plan Assessment/Plan (1) PCT (porphyria cutanea tarda): (2) Debility: (3) Hemorrhagic cerebrovascular accident (CVA): (4) Subdural hematoma: (5) Subarachnoid hemorrhage: (6) Encephalomalacia: (7) Dysphagia: QUALIFIERS: Dysphagia type: oropharyngeal phase Qualified Code(s): R13.12 - Dysphagia, oropharyngeal phase (8) Left-sided neglect: (9) Generalized weakness: (10) Orthostatic hypotension: (11) Macrocytic anemia: (12) Chronic kidney disease, stage 3b: (13) Hyperlipidemia: QUALIFIERS: Hyperlipidemia type: unspecified Qualified Code(s): E78.5 - Hyperlipidemia, unspecified (14) Coronary artery disease: QUALIFIERS: Coronary Disease-Associated Artery/Lesion type: [place] artery [place] vs. transplanted heart: [place] heart Associated angina: without angina Qualified Code(s): I25.10 - Atherosclerotic heart disease of [place] coronary artery without angina pectoris (15) Atrial fibrillation: QUALIFIERS: Atrial fibrillation type: paroxysmal Qualified Code(s): I48.0 - Paroxysmal atrial fibrillation (16) History of placement of leadless cardiac pacemaker: (17) Secondary pulmonary arterial hypertension: (18) Essential (primary) hypertension: (19) Restrictive airway disease: (20) Obesity: QUALIFIERS: Obesity type: due to excess calories Obesity classification: adult class 1 (BMI 30 - 34.9) Serious obesity comorbidity presence: with serious comorbidity Body mass index: BMI 32.0-32.9 Qualified Code(s): E66.09 - Other obesity due to excess calories; Z68.32 - Body mass index [BMI] 32.0-32.9, adult (21) History of complete heart block: (22) Hemianopia, homonymous, left: (23) Diastolic CHF: QUALIFIERS: Heart failure chronicity: acute Qualified Code(s): I50.31 - Acute diastolic (congestive) heart failure PLAN: Plan 1. Continue therapy 2. Hold Florinef and Wednesday and restart on Wednesday 3. Increase Lasix to 40 mg IV BID for and Wednesday and then restart Lasix 80 mg PO daily on Wednesday. Continue to monitor the weight daily . 4. BMP and Mag in the AM 5. Dry weight estimated to be around 206. 6. Orthostatics in the AM for the next 3 days. Charges/Coding Visit Charges Inpatient E&M: 49748 Subs Hosp L2
[2023-02-17] MEDS: Menthol/Lanolin/Calamine/Znox 113 GM Tube 1 APPLIC TOPICAL ×2 (09:50→21:15)
[2023-02-17] MEDS: Nystatin/Triamcin Cream Tube 1 APPLIC TOPICAL ×2 (09:50→21:16)
[2023-02-17] MEDS: Ferrous Sulfate 325 MG Tablet PO (11:51)
[2023-02-17] MEDS: Ascorbic Acid 500 MG Tablet 1000 MG PO (11:51)
[2023-02-17] MEDS: Potassium Chloride Oral Tablet 20 MEQ PO ×2 (11:51→15:49)
[2023-02-17] MEDS: Nystatin Powder 15gm Bottle 1 APPLIC TOPICAL ×2 (11:56→21:16)
[2023-02-17] MEDS: Furosemide 40 MG/4 ML Vial IV (15:47)
[2023-02-17] MEDS: 0.9% Saline Lock 10 ML Syringe IV (15:51)
[2023-02-17 18:52] VITALS: BP 147/61; PULSE 69; RESP 14; TEMP 36.5; O2SAT 97
[2023-02-17] MEDS: QUEtiapine 25 MG Tablet 12.5 MG PO (21:13)
[2023-02-17] MEDS: Atorvastatin Calcium 10 MG Tablet PO (21:15)
[2023-02-17] MEDS: Mirtazapine 15 MG Tablet 7.5 MG PO (21:15)
[2023-02-17 22:00] VITALS: O2SAT 97
[2023-02-18 05:06] VITALS: BMI 31.6
[2023-02-18 06:07] LABS: Hematocrit 36.8 % (40-54); Hemoglobin 11.7 g/dL (13.0-16.5)
[2023-02-18 06:49] LABS: Anion Gap 4 (5-15); BUN 22 mg/dL (7-18); BUN/Creat Ratio 16.7 RATIO (10-20); Calcium,Total 8.6 mg/dL (8.5-10.1); Chloride 110 mmol/L (98-107); Creatinine, Serum 1.32 mg/dL (0.70-1.30); EST Glomerular Filtration Rate 55 mL/min (>60); Est Glom Filt Rate - Afr Amer 66 mL/min (>60); Estimated Creatinine Clearance 39.58 ml/min; Glucose 92 mg/dL (74-106); Magnesium 2.2 mg/dL (1.6-2.6); Sodium Level 143 mmol/L (136-145)
[2023-02-18 07:58] VITALS: BP 109/55; PULSE 89; RESP 16; TEMP 36.6; O2SAT 92
[2023-02-18] MEDS: Midodrine HCl 5 MG Tablet 10 MG PO ×3 (08:14→16:35)
[2023-02-18] MEDS: Menthol/Lanolin/Calamine/Znox 113 GM Tube 1 APPLIC TOPICAL ×2 (08:14→20:12)
[2023-02-18] MEDS: Nystatin Powder 15gm Bottle 1 APPLIC TOPICAL ×2 (08:14→20:12)
[2023-02-18] MEDS: Na Biphos/Potassium Phosphate PACKET 1 PACKET PO ×2 (08:14→20:10)
[2023-02-18] MEDS: Senna/Docusate Sodium 1 Tablet 2 TABLET PO (08:15)
[2023-02-18] MEDS: Nystatin/Triamcin Cream Tube 1 APPLIC TOPICAL ×2 (08:19→20:13)
[2023-02-18 10:00] VITALS: BP 122/50; BP 143/72; BP 146/72; PULSE 94; PULSE 95; PULSE 97
--- NOTE | 2023-02-18 11:06 | PN_ITS ---
Subjective Subjective Afebrile VSS-blood pressure lying down today is 143/72, sitting up it is 146/72 and standing it dropped to 122/50. Pulse did not significantly change with changes in position. Maintaining appropriate oxygen saturation on RA Oral intake is good His weight today is 208 pounds down from 216 pounds on 02/15/2023. Discussed with nursing - no problems that need addressed Reviewed the PT/OT/ST notes Medication list reviewed. All lab drawn this morning was personally reviewed. Hemoglobin is 11.7 which is up from 11 on 02/15/2023. Sodium is normal at 143 and the potassium is stable at 4. The BUN is 22 and the creatinine is 1.32 which is up from 1.09 on 02/16/2023 but this is still lower than his baseline creatinine has been for the past 2 years. Mag is normal at 2.2. Leonard denies lightheadedness and also denies shortness of breath with ambulating today. He denies chest pain, palpitations, cough, abdominal pain, dysuria and calf tenderness. Objective Data Objective Data Vital Signs: Vital Signs Temp Pulse Resp BP Pulse Ox O2 Del Method O2 Flow Rate 97.9 F 97 16 146/72 H 92 Room Air 0 02/18/23 07:58 02/18/23 10:00 02/18/23 07:58 02/18/23 10:00 02/18/23 07:58 02/17/23 22:00 01/24/23 20:40 FiO2 21 01/24/23 20:40 Oxygen Flow Rate (L/min) 0 Oxygen Delivery Method Room Air Weight: 208 lb 6.4 oz Body Mass Index (BMI) 31.6 Intake & Output: Intake and Output for Last 24 Hours 02/16/23 02/17/23 02/18/23 23:59 23:59 23:59 Intake Total 1420 / 1540 1880 / 1880 360 / 360 Output Total 1550 / 1550 1200 / 1200 500 / 500 Balance -130 / -10 680 / 680 -140 / -140 Lab / Micro Data 02/18/23 05:45 02/18/23 05:45 Labs: Laboratory Results - last 24 hr 02/18/23 05:45: Hgb 11.7 L, Hct 36.8 L, Sodium 143, Potassium 4.0, Chloride 110 H, Carbon Dioxide 29.0, Anion Gap 4 L, BUN 22 H, Creatinine 1.32 H, Estim Creat Clear Calc 39.58, Est GFR (MDRD) Af Amer 66, Est GFR (MDRD) Non-Af 55 L, BUN/Creatinine Ratio 16.7, Glucose 92, Calcium 8.6, Magnesium 2.2 Micro: Microbiology 02/12/23 18:30 Urine, Clean Catch Urine Culture - Final Mixed Gram Pos & Gram Neg Org Physical Exam Const alert, oriented x3 and no apparent distress Constitutional Narrative: Ambulating in the halls and not dyspneic or tachypneic. General Appearance: cooperative Resp normal respiratory effort and normal air movement Resp Narrative: Good air exchange today with just a few coarse crackles in the bases that mostly resolved after a few deep breaths. Clear anteriorly. Cardio regular rate, regular rhythm and no gallops Cardio Narrative: Distant GI normal to inspection, nondistended, normoactive bowel sounds, soft to palpation and non-tender GI Narrative: Non-tender to palpation and no guarding. Extremity no calf tenderness Extremity Narrative: Ankle edema is much improved. He is diuresing well with 40 mg if IV Lasix daily . Psych cooperative and affect normal Assessment & Plan Assessment/Plan (1) PCT (porphyria cutanea tarda): (2) Debility: (3) Hemorrhagic cerebrovascular accident (CVA): (4) Subdural hematoma: (5) Subarachnoid hemorrhage: (6) Encephalomalacia: (7) Dysphagia: QUALIFIERS: Dysphagia type: oropharyngeal phase Qualified Code(s): R13.12 - Dysphagia, oropharyngeal phase (8) Left-sided neglect: (9) Generalized weakness: (10) Orthostatic hypotension: (11) Macrocytic anemia: (12) Chronic kidney disease, stage 3b: (13) Hyperlipidemia: QUALIFIERS: Hyperlipidemia type: unspecified Qualified Code(s): E78.5 - Hyperlipidemia, unspecified (14) Coronary artery disease: QUALIFIERS: Coronary Disease-Associated Artery/Lesion type: [place] artery [place] vs. transplanted heart: [place] heart Associated angina: without angina Qualified Code(s): I25.10 - Atherosclerotic heart disease of [place] coronary artery without angina pectoris (15) Atrial fibrillation: QUALIFIERS: Atrial fibrillation type: paroxysmal Qualified Code(s): I48.0 - Paroxysmal atrial fibrillation (16) History of placement of leadless cardiac pacemaker: (17) Secondary pulmonary arterial hypertension: (18) Essential (primary) hypertension: (19) Restrictive airway disease: (20) Obesity: QUALIFIERS: Obesity type: due to excess calories Obesity class ification: adult class 1 (BMI 30 - 34.9) Serious obesity comorbidity presence: with serious comorbidity Body mass index: BMI 32.0-32.9 Qualified Code(s): E66.09 - Other obesity due to excess calories; Z68.32 - Body mass index [BMI] 32.0-32.9, adult (21) History of complete heart block: (22) Hemianopia, homonymous, left: (23) Diastolic CHF: QUALIFIERS: Heart failure chronicity: acute Qualified Code(s): I50.31 - Acute diastolic (congestive) heart failure PLAN: Plan 1. Continue therapy-he continues to make excellent progress. 2. Restart Florinef on Wednesday but decrease the dose to 0.05 mg daily. 3. Lasix 40 mg IV at 3 PM today after he is finished his therapy 4. He may not need Lasix every day so will monitor weights and intake and output closely to determine how often he will need to take Lasix. May need to make Lasix as needed for weight gain of greater than 2 pounds in 1 to 2 days and greater than 5 pounds in 1 week. His wt in September was 223. 5. Fluid restrict to 1500 cc daily. 6. Extra 20 MEQ of KCL today. 7. Repeat a BMP on Wednesday. 8. Orthostatic blood pressures in the a.m. tomorrow and Wednesday morning. Charges/Coding Visit Charges Inpatient E&M: 47759 Subs Hosp L2
[2023-02-18] MEDS: Potassium Chloride Oral Tablet 20 MEQ PO ×3 (12:41→16:34)
[2023-02-18] MEDS: Ascorbic Acid 500 MG Tablet 1000 MG PO (12:41)
[2023-02-18] MEDS: Ferrous Sulfate 325 MG Tablet PO (12:42)
[2023-02-18] MEDS: Furosemide 40 MG Tablet PO (15:41)
[2023-02-18] MEDS: 0.9% Saline Lock 10 ML Syringe IV (15:44)
[2023-02-18 19:33] VITALS: BP 156/85; PULSE 71; RESP 17; TEMP 36.4; O2SAT 97
[2023-02-18] MEDS: QUEtiapine 25 MG Tablet 12.5 MG PO (20:08)
[2023-02-18] MEDS: Mirtazapine 15 MG Tablet 7.5 MG PO (20:08)
[2023-02-18] MEDS: Atorvastatin Calcium 10 MG Tablet PO (20:10)
[2023-02-18 21:40] VITALS: O2SAT 97
[2023-02-19 05:40] VITALS: BMI 30.4
[2023-02-19 08:01] VITALS: BP 132/62; PULSE 70; RESP 14; TEMP 36.6; O2SAT 92
[2023-02-19] MEDS: Midodrine HCl 5 MG Tablet 10 MG PO ×3 (09:00→17:49)
[2023-02-19] MEDS: Ensure Plus High Protein 120 ML LIQUID PO ×2 (09:00→13:53)
[2023-02-19] MEDS: Nystatin Powder 15gm Bottle 1 APPLIC TOPICAL ×2 (10:00→20:05)
[2023-02-19] MEDS: Menthol/Lanolin/Calamine/Znox 113 GM Tube 1 APPLIC TOPICAL ×2 (10:00→20:05)
[2023-02-19] MEDS: Nystatin/Triamcin Cream Tube 1 APPLIC TOPICAL ×2 (10:01→20:05)
[2023-02-19] MEDS: Na Biphos/Potassium Phosphate PACKET 1 PACKET PO ×2 (10:02→20:00)
--- NOTE | 2023-02-19 10:29 | PCM.PROGNOTE ---
Subjective Subjective Afebrile VSS Maintaining appropriate oxygen saturation on RA Oral intake is good Good urine output after Lasix 40 mg p.o. yesterday. His weight is listed today at 201.1. Orthostatic vital signs have not been done yet. Discussed with nursing - no problems that need addressed Reviewed the PT/OT/ST notes Medication list reviewed. Leonard denies lightheadedness and also denies shortness of breath, chest pain, palpitations, abdominal pain, dysuria and calf pain. He was very alert when I saw him and sitting in a chair with no lightheadedness. Objective Data Objective Data Vital Signs: Vital Signs Temp Pulse Resp BP Pulse Ox O2 Del Method O2 Flow Rate 97.8 F 70 14 132/62 H 92 Room Air 0 02/19/23 08:01 02/19/23 08:01 02/19/23 08:01 02/19/23 08:01 02/19/23 08:01 02/19/23 08:01 01/24/23 20:40 FiO2 21 01/24/23 20:40 Oxygen Flow Rate (L/min) 0 Oxygen Delivery Method Room Air Weight: 201 lb 0.985 oz Body Mass Index (BMI) 30.4 Intake & Output: Intake and Output for Last 24 Hours 02/17/23 02/18/23 02/19/23 23:59 23:59 23:59 Intake Total 1880 / 1880 1090 / 1330 420 / 420 Output Total 1200 / 1200 700 / 1600 1700 / 1700 Balance 680 / 680 390 / -270 -1280 / -1280 Lab / Micro Data 02/18/23 05:45 02/18/23 05:45 Micro: Microbiology 02/12/23 18:30 Urine, Clean Catch Urine Culture - Final Mixed Gram Pos & Gram Neg Org Physical Exam Const alert, oriented x3 and no apparent distress General Appearance: cooperative Resp clear to auscultation bilaterally Resp Narrative: Initially had a few coarse crackles in the bases but these completely cleared after couple deep breaths. Effort and Inspection: Negative for tachypneic or labored Cardio regular rate, regular rhythm and no gallops Cardio Narrative: Distant heart sounds. GI normal to inspection, nondistended, normoactive bowel sounds, soft to palpation and non-tender Extremity Extremity Narrative: Trace pitting edema in the ankles, right greater than left. ANNE hose are in place and his legs are dependent. 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 Continue therapy 2. Orthostatic vital signs today 3. H&H and BMP in the a.m. 4. No Lasix today. 5. Continue daily weights Charges/Coding Visit Charges Inpatient E&M: 77039 Subs Hosp L2
[2023-02-19 13:10] VITALS: BMI 31.6
[2023-02-19 13:30] VITALS: BP 138/70; BP 140/73; BP 72/42; PULSE 68; PULSE 72; PULSE 76
--- NOTE | 2023-02-19 13:46 | CASEMGMT ---
Social Work Phoned dtr to update on insurance approval with [employer]D 02/26. SW updated pt and IDT. Phyllis Vela, ARMORER TECHNICIAN GROCERY CHECKER
[2023-02-19] MEDS: Potassium Chloride Oral Tablet 20 MEQ PO ×2 (13:52→17:49)
[2023-02-19] MEDS: Ascorbic Acid 500 MG Tablet 1000 MG PO (13:53)
[2023-02-19] MEDS: Ferrous Sulfate 325 MG Tablet PO (13:53)
[2023-02-19 19:31] VITALS: BP 142/75; PULSE 71; RESP 17; TEMP 36.9; O2SAT 97
[2023-02-19] MEDS: Atorvastatin Calcium 10 MG Tablet PO (20:01)
[2023-02-19] MEDS: Mirtazapine 15 MG Tablet 7.5 MG PO (20:01)
[2023-02-19] MEDS: QUEtiapine 25 MG Tablet 12.5 MG PO (20:03)
[2023-02-19] MEDS: Senna/Docusate Sodium 1 Tablet 2 TABLET PO (20:03)
[2023-02-19 21:55] VITALS: O2SAT 97
[2023-02-20 06:00] VITALS: BMI 31.8
[2023-02-20 07:15] LABS: Hematocrit 35.2 % (40-54)
[2023-02-20 08:55] VITALS: BP 106/57; PULSE 74; RESP 16; TEMP 36.7; O2SAT 92
[2023-02-20] MEDS: Ensure Plus High Protein 120 ML LIQUID PO ×3 (09:21→16:52)
[2023-02-20] MEDS: Midodrine HCl 5 MG Tablet 10 MG PO ×3 (09:22→16:53)
[2023-02-20] MEDS: Na Biphos/Potassium Phosphate PACKET 1 PACKET PO ×2 (09:22→20:10)
[2023-02-20] MEDS: Fludrocortisone Acetate 0.1 MG Tablet 0.05 MG PO (09:22)
[2023-02-20] MEDS: Menthol/Lanolin/Calamine/Znox 113 GM Tube 1 APPLIC TOPICAL ×2 (09:23→20:15)
[2023-02-20] MEDS: Nystatin Powder 15gm Bottle 1 APPLIC TOPICAL ×2 (09:23→21:49)
[2023-02-20] MEDS: Nystatin/Triamcin Cream Tube 1 APPLIC TOPICAL ×2 (09:25→20:16)
[2023-02-20 10:09] VITALS: BP 109/62; BP 145/74; BP 146/73; PULSE 69; PULSE 70
[2023-02-20] MEDS: Potassium Chloride Oral Tablet 20 MEQ PO ×2 (13:10→16:52)
[2023-02-20] MEDS: Ferrous Sulfate 325 MG Tablet PO (13:11)
[2023-02-20] MEDS: Ascorbic Acid 500 MG Tablet 1000 MG PO (13:11)
[2023-02-20 19:27] VITALS: BP 168/78; PULSE 70; RESP 19; TEMP 36.9; O2SAT 95
[2023-02-20] MEDS: QUEtiapine 25 MG Tablet 12.5 MG PO (20:09)
[2023-02-20] MEDS: Atorvastatin Calcium 10 MG Tablet PO (20:10)
[2023-02-20] MEDS: Senna/Docusate Sodium 1 Tablet 2 TABLET PO (20:11)
[2023-02-20] MEDS: Mirtazapine 15 MG Tablet 7.5 MG PO (20:11)
[2023-02-21 06:58] LABS: Anion Gap 3 (5-15); BUN 19 mg/dL (7-18); Calcium,Total 8.8 mg/dL (8.5-10.1); Chloride 112 mmol/L (98-107); Creatinine, Serum 1.12 mg/dL (0.70-1.30); EST Glomerular Filtration Rate 66 mL/min (>60); Est Glom Filt Rate - Afr Amer 80 mL/min (>60); Estimated Creatinine Clearance 46.65 ml/min; Glucose 91 mg/dL (74-106); Potassium 4.2 mmol/L (3.5-5.1); Sodium Level 143 mmol/L (136-145)
[2023-02-21 08:00] VITALS: BP 140/75; PULSE 77; RESP 18; TEMP 36.5; O2SAT 94
[2023-02-21] MEDS: Ensure Plus High Protein 120 ML LIQUID PO ×3 (09:02→17:22)
[2023-02-21] MEDS: Fludrocortisone Acetate 0.1 MG Tablet 0.05 MG PO (09:02)
[2023-02-21] MEDS: Na Biphos/Potassium Phosphate PACKET 1 PACKET PO ×2 (09:03→20:25)
[2023-02-21] MEDS: Midodrine HCl 5 MG Tablet 10 MG PO ×3 (09:03→17:22)
[2023-02-21] MEDS: Nystatin Powder 15gm Bottle 1 APPLIC TOPICAL ×2 (09:04→20:28)
[2023-02-21] MEDS: Senna/Docusate Sodium 1 Tablet 2 TABLET PO ×2 (09:04→20:24)
[2023-02-21] MEDS: Menthol/Lanolin/Calamine/Znox 113 GM Tube 1 APPLIC TOPICAL ×2 (09:04→20:26)
[2023-02-21] MEDS: Nystatin/Triamcin Cream Tube 1 APPLIC TOPICAL ×2 (09:05→20:28)
[2023-02-21] MEDS: Ferrous Sulfate 325 MG Tablet PO (12:33)
[2023-02-21] MEDS: Potassium Chloride Oral Tablet 20 MEQ PO ×2 (12:34→17:23)
[2023-02-21] MEDS: Ascorbic Acid 500 MG Tablet 1000 MG PO (12:34)
[2023-02-21 12:57] VITALS: BMI 31.9
[2023-02-21 13:06] VITALS: BP 131/74; BP 144/69; BP 88/45; PULSE 72; PULSE 81; PULSE 96
[2023-02-21 19:07] VITALS: BP 160/90; PULSE 69; RESP 18; TEMP 36.6; O2SAT 97
[2023-02-21] MEDS: QUEtiapine 25 MG Tablet 12.5 MG PO (20:24)
[2023-02-21] MEDS: Mirtazapine 15 MG Tablet 7.5 MG PO (20:24)
[2023-02-21] MEDS: Atorvastatin Calcium 10 MG Tablet PO (20:25)
[2023-02-22 06:00] VITALS: BMI 31.8
[2023-02-22 07:37] VITALS: BP 144/74; PULSE 77; RESP 14; TEMP 36.6; O2SAT 93
[2023-02-22] MEDS: Ensure Plus High Protein 120 ML LIQUID PO ×3 (08:23→16:57)
[2023-02-22] MEDS: Midodrine HCl 5 MG Tablet 10 MG PO ×3 (08:23→16:57)
[2023-02-22] MEDS: Na Biphos/Potassium Phosphate PACKET 1 PACKET PO ×2 (08:23→21:43)
[2023-02-22] MEDS: Fludrocortisone Acetate 0.1 MG Tablet 0.05 MG PO (08:24)
[2023-02-22] MEDS: Menthol/Lanolin/Calamine/Znox 113 GM Tube 1 APPLIC TOPICAL ×2 (08:25→21:47)
[2023-02-22] MEDS: Nystatin Powder 15gm Bottle 1 APPLIC TOPICAL ×2 (08:27→21:46)
[2023-02-22] MEDS: Nystatin/Triamcin Cream Tube 1 APPLIC TOPICAL ×2 (08:33→21:47)
--- NOTE | 2023-02-22 11:01 | PCM.PROGNOTE ---
Subjective Subjective Leonard was seen on team rounds today. His daughter Sylvia participated by phone and his sister, [id number] and were present in the room. Afebrile VSS-blood pressure lying down was 139/69, sitting up was 154/81 and standing was 132/67. Maintaining appropriate oxygen saturation on RA Oral intake is good for food and starting to decrease for fluid......he took only 1080 yesterday. Florinef was restarted at 0.05 mg on Wednesday. Discussed with nursing - no problems that need addressed Reviewed the PT/OT/ST notes Medication list reviewed. Leonard denies lightheadedness and also denies SOB, CP, palpitations, dysuria and calf tenderness. He is having urinary incontinence at night and sometimes does not even wake up with incontinence. He also had incontinence of stool when in the shower today. He is not yet ready to go home and will be going to TCU following DC from rehab. Objective Data Objective Data Vital Signs: Vital Signs Temp Pulse Resp BP Pulse Ox O2 Del Method O2 Flow Rate 97.8 F 77 14 144/74 H 93 Room Air 0 02/22/23 07:37 02/22/23 07:37 02/22/23 07:37 02/22/23 07:37 02/22/23 07:37 02/22/23 07:37 01/24/23 20:40 FiO2 21 01/24/23 20:40 Oxygen Flow Rate (L/min) 0 Oxygen Delivery Method Room Air Weight: 209 lb 14.081 oz Body Mass Index (BMI) 31.8 Intake & Output: Intake and Output for Last 24 Hours 02/20/23 02/21/23 02/22/23 23:59 23:59 23:59 Intake Total 1190 / 1190 1080 / 1080 120 / 120 Output Total 450 / 450 475 / 475 Balance 740 / 740 605 / 605 120 / 120 Lab / Micro Data 02/20/23 05:27 02/21/23 06:24 Micro: Microbiology 02/12/23 18:30 Urine, Clean Catch Urine Culture - Final Mixed Gram Pos & Gram Neg Org Physical Exam Const alert, oriented x3 and no apparent distress General Appearance: cooperative Orientation / Consciousness: Negative for confused HEENT moist oral mucous membranes Resp Resp Narrative: Has some bibasilar crackles that do not clear with several deep breaths. No wheezing and he has excellent air exchange. He is not tachypneic and breathing is not labored. He denies ERWIN. GI normal to inspection, nondistended, normoactive bowel sounds, soft to palpation and non-tender Extremity no calf tenderness Extremity Narrative: He has pitting edema of the ankles. Skin General Skin Exam: no breakdown Rashes: no rashes Wounds: Negative for wounds noted Psych cooperative and affect normal Appearance: appropriate Mood & Affect: Negative for depressed or anxious Thought Content: No suicidality, No homicidality, No delusion(s) and No hallucination(s) Assessment & Plan Assessment/Plan (1) Debility: (2) Hemorrhagic cerebrovascular accident (CVA): (3) Subdural hematoma: (4) Subarachnoid hemorrhage: (5) Encephalomalacia: (6) Dysphagia: QUALIFIERS: Dysphagia type: oropharyngeal phase Qualified Code(s): R13.12 - Dysphagia, oropharyngeal phase (7) Left-sided neglect: (8) Generalized weakness: (9) Orthostatic hypotension: (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 (13) Hypophosphatemia: PLAN: Plan 1. Continue therapy 2. Orthostatics were negative today so we will give Lasix 40 mg p.o. Continue orthostatics in the AM and monitoring daily weights. Recheck a BMP on Wednesday. I would like his dry weight to be 204-206 and without orthostatic hypotension. 3. DC Seroquel and try tolterodine 2 mg at HS to see if the urinary urgency and incontinence at night improves. 4. Supplement phosphorus and recheck later this week 5. Start magnesium chloride 128 mg daily to keep the magnesium around 2 with his history of atrial fibrillation 6. Will check PVRs for the next 3 days after starting tolterodine to make sure he is not retaining urine. Charges/Coding Visit Charges Inpatient E&M: 23524 Subs Hosp L2
[2023-02-22 11:03] VITALS: BP 132/67; BP 139/69; BP 154/81; PULSE 70; PULSE 71
[2023-02-22] MEDS: Potassium Chloride Oral Tablet 20 MEQ PO ×2 (12:17→16:57)
[2023-02-22] MEDS: Ferrous Sulfate 325 MG Tablet PO (12:23)
[2023-02-22] MEDS: Ascorbic Acid 500 MG Tablet 1000 MG PO (12:23)
--- NOTE | 2023-02-22 12:44 | CASEMGMT ---
Social Work IDT met with patient, , brother and sister then dtr via conference call for Team meeting. Discussed patient's progress in PT/OT/ST/SN. Educated to [facility] insurance with NRD 02/26 and continued stay is not guaranteed with each review. DC plan remains transfer to TCU, but family discussed possibly having pt and move in to [place] permanently. SW offered resources to assist. SW will continue to follow for DC planning. Phyllis Vela, PREPARATION OPERATOR BARREL RIB MATTING MACHINE OPERATOR
[2023-02-22] MEDS: Furosemide 40 MG Tablet PO (17:04)
[2023-02-22 21:30] VITALS: BP 125/54; PULSE 70; RESP 17; TEMP 36.6; O2SAT 94
[2023-02-22] MEDS: Senna/Docusate Sodium 1 Tablet 2 TABLET PO (21:42)
[2023-02-22] MEDS: Mirtazapine 15 MG Tablet 7.5 MG PO (21:42)
[2023-02-22] MEDS: Atorvastatin Calcium 10 MG Tablet PO (21:47)
[2023-02-22] MEDS: Tolterodine Tartrate 2 MG CAP.SA PO (21:48)
[2023-02-23 06:00] VITALS: BMI 30.6
[2023-02-23 07:55] VITALS: BP 119/62; PULSE 83; RESP 17; TEMP 36.4; O2SAT 93
[2023-02-23] MEDS: Ensure Plus High Protein 120 ML LIQUID PO ×3 (09:20→17:53)
[2023-02-23] MEDS: Midodrine HCl 5 MG Tablet 10 MG PO ×3 (09:20→17:53)
[2023-02-23] MEDS: Fludrocortisone Acetate 0.1 MG Tablet 0.05 MG PO (09:20)
[2023-02-23] MEDS: Nystatin/Triamcin Cream Tube 1 APPLIC TOPICAL ×2 (09:20→20:01)
[2023-02-23] MEDS: Senna/Docusate Sodium 1 Tablet 2 TABLET PO ×2 (09:21→19:57)
[2023-02-23] MEDS: Na Biphos/Potassium Phosphate PACKET 1 PACKET PO ×2 (09:21→19:57)
[2023-02-23] MEDS: Menthol/Lanolin/Calamine/Znox 113 GM Tube 1 APPLIC TOPICAL ×2 (09:22→20:00)
[2023-02-23] MEDS: Nystatin Powder 15gm Bottle 1 APPLIC TOPICAL ×2 (09:22→20:00)
[2023-02-23] MEDS: Acetaminophen 500 MG Tablet 1000 MG PO (09:29)
--- NOTE | 2023-02-23 11:42 | PCM.PROGNOTE ---
Subjective Subjective Afebrile VSS-resting blood pressure today is 119/62 and the orthostatics are barely + He denies lightheadedness. Heart rate is 70 at rest. Maintaining appropriate oxygen saturation on RA-93 to 97%. Oral intake is good. His weight today is 201.5, down from 209.9 yesterday......wts are very erratic and can change up to 8 lbs a day? Regular bowel movements Discussed with nursing - no problems that need addressed Reviewed the PT/OT/ST notes Medication list reviewed. Leonard denies chest pain, cough, shortness of breath, palpitations, lightheadedness, dysuria and calf pain. He is doing very well in therapy and getting stronger all the time. Objective Data Objective Data Vital Signs: Vital Signs Temp Pulse Resp BP Pulse Ox O2 Del Method O2 Flow Rate 97.5 F L 83 17 119/62 93 Room Air 0 02/23/23 07:55 02/23/23 07:55 02/23/23 07:55 02/23/23 07:55 02/23/23 07:55 02/23/23 07:55 01/24/23 20:40 FiO2 21 01/24/23 20:40 Oxygen Flow Rate (L/min) 0 Oxygen Delivery Method Room Air Weight: 201 lb 8.04 oz Body Mass Index (BMI) 30.6 Intake & Output: Intake and Output for Last 24 Hours 02/21/23 02/22/23 02/23/23 23:59 23:59 23:59 Intake Total 1080 / 1080 1180 / 1180 180 / 180 Output Total 475 / 475 500 / 500 200 / 200 Balance 605 / 605 680 / 680 -20 / -20 Lab / Micro Data 02/24/23 05:33 02/24/23 05:33 Micro: Microbiology 02/12/23 18:30 Urine, Clean Catch Urine Culture - Final Mixed Gram Pos & Gram Neg Org Physical Exam Const alert, oriented x3 and no apparent distress General Appearance: cooperative Orientation / Consciousness: Negative for confused Resp Resp Narrative: The left lung is clear to auscultation. The right has minimal crackles in the very base of the lung posteriorly. He is not tachypneic and has no conversational dyspnea. He has some shortness of breath with exertion outside today but it resolved within a minute when he rested. No orthopnea and no PND. Cardio regular rate and regular rhythm GI normal to inspection, nondistended, normoactive bowel sounds, soft to palpation and non-tender Extremity Extremity Narrative: the calves are soft and there is no pitting of the LE's except for the ankles and just above the ankle. ANNE hose are in place. 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 Continue therapy 2. No Lasix today until I look at the orthostatic vital signs. Urine OP's are no accurate due to incontinence. wt's are somtimes difficult to believe. eg. I do not believe that he has lost 8 lbs since yesterday. 3. BMP, H&H and magnesium in the a.m. Charges/Coding Visit Charges Inpatient E&M: 02331 Subs Hosp L2
[2023-02-23 11:46] VITALS: BP 132/59; BP 149/75; BP 151/84; PULSE 69; PULSE 72; PULSE 73
[2023-02-23] MEDS: Ferrous Sulfate 325 MG Tablet PO (12:18)
[2023-02-23] MEDS: Potassium Chloride Oral Tablet 20 MEQ PO ×2 (12:19→17:53)
[2023-02-23] MEDS: Ascorbic Acid 500 MG Tablet 1000 MG PO (12:19)
[2023-02-23 19:21] VITALS: BP 142/72; PULSE 71; RESP 16; TEMP 36.7; O2SAT 98
[2023-02-23] MEDS: Tolterodine Tartrate 2 MG CAP.SA PO (19:56)
[2023-02-23] MEDS: Atorvastatin Calcium 10 MG Tablet PO (19:56)
[2023-02-23] MEDS: Mirtazapine 15 MG Tablet 7.5 MG PO (19:56)
[2023-02-23 20:37] VITALS: O2SAT 97
[2023-02-24 05:40] LABS: Hematocrit 33.9 % (40-54)
[2023-02-24 06:00] VITALS: BMI 31.7
[2023-02-24 06:02] LABS: Anion Gap 2 (5-15); BUN 24 mg/dL (7-18); BUN/Creat Ratio 21.2 RATIO (10-20); Calcium,Total 8.8 mg/dL (8.5-10.1); Chloride 111 mmol/L (98-107); Creatinine, Serum 1.13 mg/dL (0.70-1.30); EST Glomerular Filtration Rate 65 mL/min (>60); Est Glom Filt Rate - Afr Amer 79 mL/min (>60); Estimated Creatinine Clearance 46.24 ml/min; Glucose 94 mg/dL (74-106); Magnesium 2.3 mg/dL (1.6-2.6); Potassium 4.1 mmol/L (3.5-5.1); Sodium Level 143 mmol/L (136-145)
[2023-02-24 07:43] VITALS: BP 121/60; PULSE 75; RESP 16; TEMP 36.8; O2SAT 96
[2023-02-24] MEDS: Fludrocortisone Acetate 0.1 MG Tablet 0.05 MG PO (10:19)
[2023-02-24] MEDS: Midodrine HCl 5 MG Tablet 10 MG PO ×3 (10:19→16:05)
[2023-02-24] MEDS: Menthol/Lanolin/Calamine/Znox 113 GM Tube 1 APPLIC TOPICAL ×2 (10:20→19:40)
[2023-02-24] MEDS: Nystatin/Triamcin Cream Tube 1 APPLIC TOPICAL ×2 (10:21→19:42)
[2023-02-24] MEDS: Na Biphos/Potassium Phosphate PACKET 1 PACKET PO ×2 (10:21→19:41)
[2023-02-24] MEDS: Nystatin Powder 15gm Bottle 1 APPLIC TOPICAL ×2 (10:21→19:41)
[2023-02-24] MEDS: Senna/Docusate Sodium 1 Tablet 2 TABLET PO ×2 (10:22→19:42)
[2023-02-24] MEDS: Ferrous Sulfate 325 MG Tablet PO (11:51)
[2023-02-24] MEDS: Potassium Chloride Oral Tablet 20 MEQ PO ×2 (11:51→16:05)
[2023-02-24] MEDS: Ascorbic Acid 500 MG Tablet 1000 MG PO (11:52)
[2023-02-24 19:32] VITALS: BP 149/74; PULSE 72; RESP 18; TEMP 36.8; O2SAT 94
[2023-02-24] MEDS: Tolterodine Tartrate 2 MG CAP.SA PO (19:38)
[2023-02-24] MEDS: Mirtazapine 15 MG Tablet 7.5 MG PO (19:39)
[2023-02-24] MEDS: Atorvastatin Calcium 10 MG Tablet PO (19:40)
[2023-02-25 06:26] VITALS: BMI 31.8
[2023-02-25 07:31] VITALS: BP 119/68; PULSE 69; RESP 16; TEMP 36.2; O2SAT 97
[2023-02-25] MEDS: Nystatin/Triamcin Cream Tube 1 APPLIC TOPICAL ×2 (08:49→20:57)
[2023-02-25] MEDS: Fludrocortisone Acetate 0.1 MG Tablet 0.05 MG PO (08:50)
[2023-02-25] MEDS: Ensure Plus High Protein 120 ML LIQUID PO ×2 (08:50→12:00)
[2023-02-25] MEDS: Nystatin Powder 15gm Bottle 1 APPLIC TOPICAL ×2 (08:54→21:00)
[2023-02-25] MEDS: Midodrine HCl 5 MG Tablet 10 MG PO ×3 (08:54→18:26)
[2023-02-25] MEDS: Menthol/Lanolin/Calamine/Znox 113 GM Tube 1 APPLIC TOPICAL ×2 (08:54→21:00)
[2023-02-25] MEDS: Na Biphos/Potassium Phosphate PACKET 1 PACKET PO ×2 (08:55→20:58)
[2023-02-25] MEDS: Senna/Docusate Sodium 1 Tablet 2 TABLET PO ×2 (08:55→20:58)
--- NOTE | 2023-02-25 11:38 | PCM.PROGNOTE ---
Subjective Subjective Afebrile VSS Maintaining appropriate oxygen saturation on RA Oral intake is good Postvoid residuals with the initiation of tolterodine at at bedtime have been good with none over 100. Discussed with nursing - no problems that need addressed Reviewed the PT/OT/ST notes Medication list reviewed. Hemoglobin is stable at 11. Sodium is 143 and the potassium is 4.1. BUN is 24 with a creatinine of 1.13 which is stable. Mag is normal at 2.3. Leonard denies lightheadedness and also denies SOB. I observed him ambulating in the caro and he was not tachypneic and he was walking at a faster pace today than previously. He is sleeping well at night. He denies chest pain, cough, palpitations, nausea/vomiting/abdominal pain, constipation, dysuria and calf pain. He was somewhat emotional yesterday because he found out his is having a cardiac catheterization next week and he is very concerned. He is doing somewhat better today. Objective Data Objective Data Vital Signs: Vital Signs Temp Pulse Resp BP Pulse Ox O2 Del Method O2 Flow Rate 97.2 F L 69 16 119/68 97 Room Air 0 02/25/23 07:31 02/25/23 07:31 02/25/23 07:31 02/25/23 07:31 02/25/23 07:31 02/25/23 07:31 01/24/23 20:40 FiO2 21 01/24/23 20:40 Oxygen Flow Rate (L/min) 0 Oxygen Delivery Method Room Air Weight: 209 lb 14.081 oz Body Mass Index (BMI) 31.8 Intake & Output: Intake and Output for Last 24 Hours 02/23/23 02/24/23 02/25/23 23:59 23:59 23:59 Intake Total 1010 / 1010 1580 / 1580 660 / 660 Output Total 650 / 650 2275 / 2275 Balance 360 / 360 -695 / -695 660 / 660 Lab / Micro Data 02/24/23 05:33 02/24/23 05:33 Micro: Microbiology 02/12/23 18:30 Urine, Clean Catch Urine Culture - Final Mixed Gram Pos & Gram Neg Org Physical Exam Const alert, oriented x3 and no apparent distress General Appearance: cooperative Resp Resp Narrative: Good inspiratory effort. The right base is clear to auscultation. In the left base posteriorly there are some increased coarse crackles and rhonchi which are new. He is not tachypneic and denies shortness of breath at rest. He did have some shortness of breath with ambulation today however he did to fairly quick laps around the floor and I did not observe him to be tachypneic. He does tell me that he is still coughing with eating and drinking at times. Cardio regular rate, regular rhythm and no gallops GI normal to inspection, nondistended, normoactive bowel sounds, soft to palpation and non-tender Extremity Extremity Narrative: He has some pitting edema which is limited to the ankles bilaterally. No calf tenderness. Skin General Skin Exam: no breakdown Rashes: no rashes Psych cooperative and affect normal Psych Narrative: Worried about his who is going to have a cardiac cath next week. He wonders whether he can go down and wait with her prior to the cath and stay until the cath is finished and she goes to recovery. I told him we can arrange his therapy around this. The procedure is scheduled for noon on Wednesday. 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 Continue therapy 2. PA and lateral chest x-ray today 3. No changes to the drug regimen at this time. No need for Lasix today. We will likely have to live with some edema of the ankles as long as he is not lightheaded or in congestive heart failure in order to control orthostatic hypotension/syncope. Charges/Coding Visit Charges Inpatient E&M: 65045 Subs Hosp L2
[2023-02-25] MEDS: Ascorbic Acid 500 MG Tablet 1000 MG PO (12:00)
[2023-02-25] MEDS: Ferrous Sulfate 325 MG Tablet PO (12:00)
[2023-02-25] MEDS: Potassium Chloride Oral Tablet 20 MEQ PO ×2 (12:00→18:26)
--- NOTE | 2023-02-25 14:51 | CASEMGMT ---
Social Work Pt disclosed to this worker that is having a procedure on 03/02. SW provided emotional support. Phyllis Vela, PEST CONTROL OPERATOR FUR LINER
--- NOTE | 2023-02-25 17:05 | RAD_ITS ---
INDICATION: crackles and wheezes L base EXAMINATION/TECHNIQUE: X-RAY - XR Chest 2 Views COMPARISON: January 12, 2023 FINDINGS: LINES/DEVICES: Stable sternotomy wires. LUNGS: Left basilar infiltrate is noted. Elevated right hemidiaphragm. No pneumothorax. MEDIASTINUM AND CARDIOVASCULAR STRUCTURES: Cardiac silhouette not enlarged. Calcified aortic arch. Central airways and mediastinal contour are unremarkable. BONES AND SOFT TISSUES: Unremarkable. RAD/Chest PA and Lateral IMPRESSION: Left basilar infiltrate. Electronically Signed: Az Gallo DO at 17:18 EDT ,
[2023-02-25 19:28] VITALS: BP 150/63; PULSE 71; RESP 17; TEMP 36.9; O2SAT 94
[2023-02-25 20:27] LABS: Absolute Lymphocyte Count 1.41 X10^3/uL (0.83-4.51); Absolute Neutrophil Count 8.8 X10^3/uL (2.0-7.7); Basophil# 0.02 X10^3/uL; Basophil% 0.2 % (0-1); Eosinophil# 0.08 X10^3/uL; Eosinophils% 0.7 % (0-5); Hematocrit 37.1 % (40-54); Hemoglobin 11.7 g/dL (13.0-16.5); Lymphocyte # 1.41 X10^3/ul (0.83-4.51); Lymphocyte % 12.6 % (19-41); Mean Corp Hgb Conc 31.5 g/dL (32-36); Mean Corpuscular Hgb 30.8 pg (27.0-32.0); Mean Corpuscular Volume 97.6 fL (80-94); Mean Platelet Vol. 9.5 fl (6.2-12.0); Monocyte# 0.85 X10^3/uL; Monocyte% 7.6 % (0-10); NRBC Flagged by Analyzer 0 % (0-5); Neutrophil # 8.78 X10^3/uL (2.7-7.7); Neutrophil % 78.5 % (47-70); Platelet Count 167 K/mm3 (150-450); RBC Distribution Width CV 15.8 % (11.6-14.6); RBC Distribution Width SD 56.2 fl (35.1-43.9); White Blood Count 11.2 K/mm3 (4.4-11.0)
[2023-02-25] MEDS: Tolterodine Tartrate 2 MG CAP.SA PO (20:56)
[2023-02-25] MEDS: Mirtazapine 15 MG Tablet 7.5 MG PO (20:57)
[2023-02-25] MEDS: Atorvastatin Calcium 10 MG Tablet PO (20:57)
[2023-02-25 22:00] VITALS: O2SAT 974
[2023-02-25] MEDS: 0.9% Saline Lock 10 ML Syringe IV ×2 (22:03→22:18)
[2023-02-25] MEDS: Doxycycline 100 MG CAPSULE PO (22:14)
[2023-02-26] MEDS: 0.9% Saline Lock 10 ML Syringe IV ×2 (05:35→15:04)
[2023-02-26 06:00] VITALS: BMI 31.6
[2023-02-26 07:32] VITALS: BP 117/69; PULSE 89; RESP 17; TEMP 37.1; O2SAT 91
[2023-02-26] MEDS: Midodrine HCl 5 MG Tablet 10 MG PO ×3 (07:43→17:30)
[2023-02-26] MEDS: Fludrocortisone Acetate 0.1 MG Tablet 0.05 MG PO (07:43)
[2023-02-26] MEDS: Ensure Plus High Protein 120 ML LIQUID PO ×3 (07:44→17:30)
[2023-02-26 08:12] VITALS: O2SAT 97
[2023-02-26 08:14] LABS: M R Staph aureus DNA By PCR Negative (Negative); Probe Check PASS; Specimen Processing Control PASS
[2023-02-26] MEDS: Nystatin/Triamcin Cream Tube 1 APPLIC TOPICAL ×2 (09:19→22:11)
[2023-02-26] MEDS: Doxycycline 100 MG CAPSULE PO ×2 (09:19→22:08)
[2023-02-26] MEDS: Na Biphos/Potassium Phosphate PACKET 1 PACKET PO ×2 (09:20→22:12)
[2023-02-26] MEDS: Senna/Docusate Sodium 1 Tablet 2 TABLET PO ×2 (09:20→22:12)
[2023-02-26] MEDS: Nystatin Powder 15gm Bottle 1 APPLIC TOPICAL ×2 (09:23→22:14)
[2023-02-26] MEDS: Menthol/Lanolin/Calamine/Znox 113 GM Tube 1 APPLIC TOPICAL ×2 (09:24→22:11)
[2023-02-26] MEDS: Ferrous Sulfate 325 MG Tablet PO (12:05)
[2023-02-26] MEDS: Potassium Chloride Oral Tablet 20 MEQ PO ×2 (12:06→17:30)
[2023-02-26] MEDS: Ascorbic Acid 500 MG Tablet 1000 MG PO (12:07)
--- NOTE | 2023-02-26 15:26 | PCM.PROGNOTE ---
Subjective Subjective Day #2 Amelia Afebrile VSS Maintaining appropriate oxygen saturation on RA Oral intake was 75 to 100% of his breakfast but only 50 to 74% of his lunch. Fluid intake is decreased. Discussed with nursing - He is confused today and I think this is encephalopathy due to infection. He is AF. He is being treated HAP suspected to be due to aspiration. He was still able to do his physical therapy. Pulse ox on room air is 97%. Reviewed the PT/OT/ST notes Medication list reviewed. Lab ordered yesterday late afternoon showed an elevated white blood cell count at 11.2 with a left shift. Hemoglobin is 11.7 which is stable. COVID was negative. MRSA nasal swab was negative. Urine for streptococcal antigen was negative. The sputum was just obtained today. Leonard denies chest pain and also denies shortness of breath at rest. He is confused but he was able to do his physical therapy. Having some cough but unable to expectorate...... a sputum sample was sent today but, I suspect it is mostly spit. Objective Data Objective Data Vital Signs: Vital Signs Temp Pulse Resp BP Pulse Ox O2 Del Method O2 Flow Rate 98.7 F 89 17 117/69 97 Room Air 0 02/26/23 07:32 02/26/23 07:32 02/26/23 07:32 02/26/23 07:32 02/26/23 08:12 02/26/23 08:12 01/24/23 20:40 FiO2 21 01/24/23 20:40 Oxygen Flow Rate (L/min) 0 Oxygen Delivery Method Room Air Weight: 207 lb 10.807 oz Body Mass Index (BMI) 31.6 Intake & Output: Intake and Output for Last 24 Hours 02/24/23 02/25/23 02/26/23 23:59 23:59 23:59 Intake Total 1580 / 1580 1140 / 1140 369.38 / 369.38 Output Total 2275 / 2275 700 / 700 Balance -695 / -695 1140 / 990 -330.62 / -330.62 Lab / Micro Data 02/25/23 20:03 02/24/23 05:33 Labs: Laboratory Results - last 24 hr 02/25/23 20:03: WBC 11.2 H, RBC 3.80 L, Hgb 11.7 L, Hct 37.1 L, MCV 97.6 H, MCH 30.8, MCHC 31.5 L, RDW Std Deviation 56.2 H, RDW Coeff of Radha 15.8 H, Plt Count 167, MPV 9.5, Immature Gran % (Auto) 0.400, Neut % (Auto) 78.5 H, Lymph % (Auto) 12.6 L, Mason % (Auto) 7.6, Eos % (Auto) 0.7, Baso % (Auto) 0.2, Absolute Neuts (auto) 8.8 H, Absolute Lymphs (auto) 1.41, Nucleated RBC % 0 02/26/23 05:51: MRSA (PCR) Negative Micro: Microbiology 02/26/23 04:53 Mucosa - Nose Respiratory Panel (PCR) - Final 02/26/23 05:51 Urine, Clean Catch Streptococcus pneumoniae Antigen (M - Final 02/25/23 19:00 Nasal Secretion SARS-CoV-2 Antigen (Rapid) - Final 02/12/23 18:30 Urine, Clean Catch Urine Culture - Final Mixed Gram Pos & Gram Neg Org Radiography Diagnostic Testing: Radiology Impression Chest X-Ray 02/25/23 17:05 IMPRESSION: Left basilar infiltrate. Electronically Signed: Az Gallo DO at 17:18 EDT Reading Location ID and State: [facility] / [place] Tel [phone], Service support , Physical Exam Const alert General Appearance: cooperative Orientation / Consciousness: confused Resp Resp Narrative: Good air exchange except for the left base. No rhonchi today but, the coarse crackles persist [address] the posterior Left lung. Effort and Inspection: Negative for tachypneic or labored Cardio Cardio Narrative: irreg, irreg with controlled VR GI normal to inspection, nondistended, normoactive bowel sounds, soft to palpation and non-tender GI Narrative: no guarding with palpation. Inspection: Negative for abdominal distention Extremity no calf tenderness General Extremity: edema bilateral (Pitting edema of both ankles. No pitting in the posterior thighs or above the ankle) Skin General Skin Exam: no breakdown Rashes: no rashes Psych cooperative and affect normal Psych Narrative: Somewhat anxious about his having a cardiac cath next week. 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 Continue therapy 2. Continue Zosyn for now. 3. The most likely reason for the pneumonia is aspiration. 4. Await the results of the sputum culture. If nothing grows we will likely transition to Augmentin next week. Charges/Coding Visit Charges Inpatient E&M: 38611 Subs Hosp L2
[2023-02-26 21:43] VITALS: BP 103/67; PULSE 69; PULSE 70; RESP 18; TEMP 36.5; O2SAT 94
[2023-02-26] MEDS: Atorvastatin Calcium 10 MG Tablet PO (22:09)
[2023-02-26] MEDS: Tolterodine Tartrate 2 MG CAP.SA PO (22:10)
[2023-02-26] MEDS: Mirtazapine 15 MG Tablet 7.5 MG PO (22:10)
[2023-02-27] MEDS: 0.9% Saline Lock 10 ML Syringe IV ×2 (04:55→19:38)
[2023-02-27 04:58] VITALS: BMI 31.1
[2023-02-27 08:00] VITALS: BP 136/86; PULSE 72; RESP 18; TEMP 36.6; O2SAT 98
[2023-02-27] MEDS: Senna/Docusate Sodium 1 Tablet 2 TABLET PO ×2 (09:09→20:00)
[2023-02-27] MEDS: Nystatin Powder 15gm Bottle 1 APPLIC TOPICAL ×2 (09:11→20:00)
[2023-02-27] MEDS: Menthol/Lanolin/Calamine/Znox 113 GM Tube 1 APPLIC TOPICAL ×2 (09:11→20:02)
[2023-02-27] MEDS: Fludrocortisone Acetate 0.1 MG Tablet 0.05 MG PO (09:11)
[2023-02-27] MEDS: Midodrine HCl 5 MG Tablet 10 MG PO ×3 (09:11→16:55)
[2023-02-27] MEDS: Na Biphos/Potassium Phosphate PACKET 1 PACKET PO ×2 (09:12→20:00)
[2023-02-27] MEDS: Doxycycline 100 MG CAPSULE PO (09:12)
[2023-02-27] MEDS: Nystatin/Triamcin Cream Tube 1 APPLIC TOPICAL ×2 (09:27→19:59)
[2023-02-27] MEDS: Potassium Chloride Oral Tablet 20 MEQ PO ×2 (12:03→16:55)
[2023-02-27] MEDS: Ascorbic Acid 500 MG Tablet 1000 MG PO (12:03)
[2023-02-27] MEDS: Ensure Plus High Protein 120 ML LIQUID PO ×2 (12:03→15:00)
[2023-02-27] MEDS: Ferrous Sulfate 325 MG Tablet PO (12:04)
[2023-02-27 19:46] VITALS: BP 146/90; PULSE 79; RESP 16; TEMP 36.7; O2SAT 96
[2023-02-27 19:52] VITALS: PULSE 79; RESP 16; O2SAT 96
[2023-02-27] MEDS: Atorvastatin Calcium 10 MG Tablet PO (20:02)
[2023-02-27] MEDS: Tolterodine Tartrate 2 MG CAP.SA PO (20:03)
[2023-02-27] MEDS: Mirtazapine 15 MG Tablet 7.5 MG PO (20:03)
[2023-02-28 05:31] VITALS: BMI 31.4
[2023-02-28 07:29] VITALS: BP 144/77; PULSE 81; RESP 16; TEMP 36.8; O2SAT 93
[2023-02-28] MEDS: Fludrocortisone Acetate 0.1 MG Tablet 0.05 MG PO (07:32)
[2023-02-28] MEDS: Midodrine HCl 5 MG Tablet 10 MG PO ×3 (07:33→17:16)
[2023-02-28] MEDS: Ensure Plus High Protein 120 ML LIQUID PO ×3 (07:33→17:17)
[2023-02-28] MEDS: Menthol/Lanolin/Calamine/Znox 113 GM Tube 1 APPLIC TOPICAL ×2 (07:34→21:08)
[2023-02-28] MEDS: Nystatin Powder 15gm Bottle 1 APPLIC TOPICAL ×2 (07:34→21:09)
[2023-02-28] MEDS: Nystatin/Triamcin Cream Tube 1 APPLIC TOPICAL ×2 (07:35→21:08)
[2023-02-28] MEDS: Na Biphos/Potassium Phosphate PACKET 1 PACKET PO ×2 (07:35→21:07)
[2023-02-28] MEDS: Ferrous Sulfate 325 MG Tablet PO (11:45)
[2023-02-28] MEDS: Ascorbic Acid 500 MG Tablet 1000 MG PO (11:45)
[2023-02-28] MEDS: Potassium Chloride Oral Tablet 20 MEQ PO ×2 (11:46→17:16)
[2023-02-28 19:02] VITALS: BP 155/80; PULSE 71; RESP 16; TEMP 36.2; O2SAT 98
[2023-02-28] MEDS: Mirtazapine 15 MG Tablet 7.5 MG PO (21:07)
[2023-02-28] MEDS: Atorvastatin Calcium 10 MG Tablet PO (21:07)
[2023-02-28] MEDS: Tolterodine Tartrate 2 MG CAP.SA PO (21:08)
[2023-02-28] MEDS: Senna/Docusate Sodium 1 Tablet 2 TABLET PO (21:10)
[2023-02-28] MEDS: 0.9% Saline Lock 10 ML Syringe IV (21:17)
[2023-02-28 22:00] VITALS: PULSE 71; RESP 15; O2SAT 98
[2023-03-01 04:15] VITALS: BP 138/84; PULSE 73
[2023-03-01] MEDS: 0.9% Saline Lock 10 ML Syringe IV ×2 (05:04→08:00)
[2023-03-01 06:00] VITALS: BMI 31.1
[2023-03-01 07:05] VITALS: BP 149/79; PULSE 74; RESP 15; TEMP 36.3; O2SAT 93
[2023-03-01] MEDS: Na Biphos/Potassium Phosphate PACKET 1 PACKET PO ×2 (07:54→20:22)
[2023-03-01] MEDS: Senna/Docusate Sodium 1 Tablet 2 TABLET PO ×2 (07:54→20:22)
[2023-03-01] MEDS: Midodrine HCl 5 MG Tablet 10 MG PO ×3 (07:54→16:56)
[2023-03-01] MEDS: Menthol/Lanolin/Calamine/Znox 113 GM Tube 1 APPLIC TOPICAL ×2 (07:55→20:30)
[2023-03-01] MEDS: Ensure Plus High Protein 120 ML LIQUID PO ×3 (07:55→16:56)
[2023-03-01] MEDS: Nystatin Powder 15gm Bottle 1 APPLIC TOPICAL ×2 (07:55→20:29)
[2023-03-01] MEDS: Nystatin/Triamcin Cream Tube 1 APPLIC TOPICAL ×2 (08:00→22:00)
[2023-03-01] MEDS: Fludrocortisone Acetate 0.1 MG Tablet 0.05 MG PO (08:24)
[2023-03-01] MEDS: Ascorbic Acid 500 MG Tablet 1000 MG PO (10:54)
[2023-03-01] MEDS: Potassium Chloride Oral Tablet 20 MEQ PO ×2 (10:54→16:56)
[2023-03-01] MEDS: Ferrous Sulfate 325 MG Tablet PO (10:54)
--- NOTE | 2023-03-01 11:20 | PN_ITS ---
Subjective Subjective Day #5 Amelia Valle was seen on team rounds today. His , sister and [id number] were present in the room. His daughter Sylvia participated by phone. Afebrile VSS Maintaining appropriate oxygen saturation on RA Oral intake is good Discussed with nursing - still confused at times. Able to participate in therap y. He did not seem confused when talking with me and we had a normal conversation. He is back to telling his jokes again. He is making progress with therapy despite the recent HCAP. Reviewed the PT/OT/ST notes Medication list reviewed. Leonard denies lightheadedness, shortness of breath at rest, chest pain, palpitations, abdominal pain, constipation, dysuria and calf pain. His only complaint is urinary urgency and frequency.......both of which he has had for a few years. He is still incontinent of urine at night and does not even wake up. Nursing tells me that they have him to the BR about every hour during the day. He denies dysuria. Objective Data Objective Data Vital Signs: Vital Signs Temp Pulse Resp BP Pulse Ox O2 Del Method O2 Flow Rate 97.3 F L 74 15 149/79 H 93 Room Air 0 03/01/23 07:05 03/01/23 07:05 03/01/23 07:05 03/01/23 07:05 03/01/23 07:05 03/01/23 07:05 01/24/23 20:40 FiO2 21 01/24/23 20:40 Oxygen Flow Rate (L/min) 0 Oxygen Delivery Method Room Air Weight: 205 lb 4.006 oz Body Mass Index (BMI) 31.1 Intake & Output: Intake and Output for Last 24 Hours 02/27/23 02/28/23 03/01/23 23:59 23:59 23:59 Intake Total 1270 / 1270 1160 / 1160 460 / 460 Output Total 1150 / 1150 775 / 775 300 / 300 Balance 120 / 120 385 / 385 160 / 160 Lab / Micro Data 02/25/23 20:03 02/24/23 05:33 Micro: Microbiology 02/26/23 14:00 Sputum, Expectorated/Coughed Gram Stain - Final 02/26/23 14:00 Sputum, Expectorated/Coughed Respiratory Culture - Final 02/26/23 04:53 Mucosa - Nose Respiratory Panel (PCR) - Final 02/26/23 05:51 Urine, Clean Catch Streptococcus pneumoniae Antigen (M - Final 02/25/23 19:00 Nasal Secretion SARS-CoV-2 Antigen (Rapid) - Final 02/12/23 18:30 Urine, Clean Catch Urine Culture - Final Mixed Gram Pos & Gram Neg Org Physical Exam Const alert and no apparent distress Constitutional Narrative: appropriate. General Appearance: cooperative Resp Resp Narrative: The R lung is CTA. The left base posteriorly has coarse crackles but, no wheezing or rhonchi now and he has much better air exchange in the Left base. Effort and Inspection: Negative for tachypneic or labored Cardio Cardio Narrative: regular rhythm today. no gallop. Heart sounds are distant. No ectopy. GI normal to inspection, nondistended, normoactive bowel sounds, soft to palpation and non-tender GI Narrative: No guarding with palpation Extremity Extremity Narrative: He has pitting edema of the ankles BL but, no edema above the knees. 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 Continue therapy. He is making very good progress. He still needs significant assistance with toileting. He also needs assistance with lower body dressing and getting his shoes on. His and he are in independently living at [facility]. I do not think his is going to be able to assist him to the extent he needs help. Family is asking about hiring a home health aid to assist him.....it would likely need to be 01/03. His has not been well recently and had to go to the Ed for weakness. She is having a cardiac cath tomorrow. In my opinion I think they would be best served going to assisted living at [place] since this is inevitable as they age. Leonard has made remarkable progress but, he needs assist 01/03 now. Family is going to look at assisted living facilities and also investigate [facility] providers. They were given lists of area agencies and facilities to look at. 2. DC Zosyn and start amoxicillin/clavulanate 875 mg twice daily. 3. Leonard has been tearful again and will go up on the Remeron to 15 mg at . 4. DC the tolterodine since it does not seem to be helping with the urinary incontinence at night. 5. Nursing is going to get him up every 2 hours at night and give him a urinal or take him to the bathroom to see if we can eliminate urinary incontinence and complete bed changes. If this is possible it would be easier for family to assist him if they choose to go back to independent living at [facility]. Charges/Coding Visit Charges Inpatient E&M: 16606 Subs Hosp L2
--- NOTE | 2023-03-01 13:05 | CASEMGMT ---
Social Work Met with patient and family for Team meeting. Discussed patient's progress in PT/OT/ST/SN. Educated to [facility] insurance with NRD 03/05 and continued stay is not guaranteed with each review. Explained insurance noted pt is making good progress, but toileting is not anticipated to improve further. is getting medical procedure tomorrow that may impact being able to assist pt at home. IDT recommended transitioning to another facility, aside from TCU, that will allow a more permanent placement. Insurance is not expected to approve TCU and pt is close to new baseline, thus limited improvement expected in TCU. SW offered to assist with AL or other SNF options. Family receptive to information. SW provided resources for [employer]/AL and pricing. SW will continue to follow for DC planning. Phyllis Vela, ROBERTA DONNELLYW
--- NOTE | 2023-03-01 14:31 | SP.MBSS_ITS ---
Modified Barium Swallow Patient Information Study Date: 03/01/23 Study Time: 12:30 Direct Billable Minutes: 120 Total Minutes procedure & reportin Diagnosis: Hemorrhagic CVA I61.9, HAP J18.9 Referring Physician: Chantal Caruso Reason for Referral: Objectively assess swallow function, assess risk for aspiration, and determine recommendations for least restrictive diet textures and compensatory strategies to improve safety of swallow. Medical History: Jorge Arevalo is a 87 YO M with a PMH of PAF, PM implantation, CAD, hx of CABG, diastolic CHF with preserved EF, hypertension, AV flor[place] ablation, chronic anticoagulation with rivaroxaban, isolated elevated bili, BPH, secondary pulmonary hypertension and hyperlipidemia who presented to the ED at [facility] on 01/12/23 c/o generalized weakness. Patient completed MBSS on 12/24/22, which recommended regular textures, thin liquids. Upon re-admission to [facility], patient was recommended soft and bite size textures, and nectar/mildly thick liquids. Pt has completed about a month of swallowing therapy, and a Ceja Free Water protocol was implemented with no worsening lung sounds. Patient participated in repeat MBSS on 02/01/23 and recommended for Soft and Bite Size Textures, and Thin liquids via tsp, with intermittent use of cough and re-swallow. See report for full details. Since then, pt participate in oropharyngeal exercise program, and upgraded to thin liquid by single cup sips. Patient now presents with worsening respiratory status with chest x-ray on 02/25/23, with left basilar infiltrate. Nursing staff with concerns for aspiration. Patient recommended for repeat MBSS to assess presence/risk for aspiration. Current Diet Ordered: Soft and Bite Size Textures, Thin Liquids Dentition: WNL Mental Status: Impaired Respiratory Status: Oxygenating on Room Air Penetration-Aspiration Scale Penetration-Aspiration Scale: OBJECTIVE ASSESSMENT OF SWALLOW FUNCTION (QUANTITATIVE ? PER TRIAL): PENETRATION / ASPIRATION SCALE (FENG): 1 = does not enter airway 2 = enters airway/above vocal folds/ejected 3 = enters airway/above vocal folds/not ejected 4 = enters airway/contacts vocal folds/ejected 5 = enters airway/contacts vocal folds/not ejected 6 = enters airway/below vocal folds/ejected 7 = enters airway/below vocal folds/not ejected despite effort 8 = enters airway/below vocal folds/no effort VIDEOFLOROSCOPIC SCALE SCORE (FENG): Grade I = aspiration of material that has penetrated into the laryngeal vestibule, intact cough reflex Grade II = aspiration < 10 % of the bolus, intact cough reflex Grade III = aspiration of < 10 % of the bolus, reduced cough reflex or aspiration of > 10 % of the bolus, intact cough reflex Grade IV = aspiration of > 10 % of the bolus, reduced cough reflex Penetration-Aspiration Scale Score Thin Liquid via teaspoon: Result: 2= enter airway/above vocal folds/ejected Thin Liquid via teaspoon Trial 2: Result: 5= enters airways/contacts vocal folds/not ejected Comment: cued cough and re-swallow X2. Thin Liquid via single cup sip: Result: 5= enters airways/contacts vocal folds/not ejected [place] Thick Liquid via single cup sip: Result: 2= enter airway/above vocal folds/ejected Pudding via tsp w/esophageal screen : Result: 1= does not enter airway Comment: Post prandial penetration of previous trial. / Cookie: Result: 1= does not enter airway Thin Liquid via sequential straw sips: Result: 5= enters airways/contacts vocal folds/not ejected Comment: Cued patient for single straw sip. Not large enough bolus size, cued pt to repeat single straw sip. Cued cough and re-swallow post swallow. Thin Liquid via single cup sip (10cc) : Result: 2= enter airway/above vocal folds/ejected Comment: Cued hard swallow. Cued cough and re-swallow post swallow. Oral Phase Labial Seal: Interlabial escape, no progression to anterior lip Tongue Control During Bolus Hold: Posterior escape of greater than half of bolus Bolus Preparation/Mastication: Disorganized chewing/mashing with solid pieces of bolus unchewed Bolus Transport/Lingual Motion: Repetitive/disorganized tongue motion Oral Residue: Trace residue lining oral structures Pharyngeal Phase Initiation of Pharyngeal Swallow: Bolus head in pyriforms Soft Palate Elevation: No bolus between soft palate and pharyngeal wall Laryngeal Elevation: Partial superior movement thyroid cart/partial apprx aryt- epig petiole Anterior Hyoid Excursion: Partial anterior movement Epiglottic Movement: Partial inversion Laryngeal Vestibule Closure at Height of Swallow: Incomplete; narrow column of air/contrast in laryngeal vestibule Pharyngeal Stripping Wave: Present - diminished Pharyngoesophageal Segment Opening: Parital distension and partial duration; parital obstruction of flow Tongue Base Retraction: Wide column of contrast between tongue base & post. pharyngeal wall Pharyngeal Residue: Collection of residue within or on pharyngeal structures Esophageal Phase Esophageal Clearance: Complete clearance Treatment Strategies Effects of treatment strategies attemped:: Cough and re-swallow = somewhat effective Effortful Swallow = somewhat effective Diagnosis/Impression Diagnosis: Mild-Moderate Oropharyngeal Dysphagia (R13.14) Impression: The oral phase is primarily marked by... -Decreased bolus control with >1/2 of the bolus spilling posteriorly to the pyriforms prior to swallow onset observed with thin liquids via straw sip. -Prolonged chewing and recollection of bolus, with solid pieces of cookie left un-chewed, and slow tongue motion for A-P transport. The pharyngeal phase is primarily marked by... -Moderately decreased airway closure during the swallow due to partial anterior hyoid excursion, decreased epiglottic inversion, and decreased laryngeal elevation. -Moderately decreased tongue base retraction, moderately decreased UES openin g/duration, and decreased pharyngeal stripping wave with resulting mod-severe pharyngeal residues after the swallow. -Deep laryngeal penetration of thin liquid via cup and straw sips which did not reliably clear, and post prandial penetration of thin liquid via cup sip, placing patient at increased risk for aspiration. -Penetration of thin liquid by tsp sips, nectar thick liquid by cup sips which reliably ejected. Penetration of thin liquid by 10 cc cup sip which reliably ejected after independent use of multiple swallows. -No independent use of throat clearing or coughing noted during the study. The esophageal phase is grossly within normal limits. Recommendations Diet: [place]-thick Liquids Comment: Soft and Bite Size Textures Compensatory Strategies: Small Bites, Small Sips, No Straws, Slow Rate, Multiple Swallows and Sitting upright Supervision: Distant Supervision Recommend Repeat Modified Barium Swallow: Yes Need for Skilled Speech Therapy Services: Yes Comment: Will recommend the patient to continue dysphagia therapy to address deficits in oropharyngeal swallow function. Will recommend the patient for oropharyngeal strengthening to improve lingual coordination, tongue base retraction, laryngeal elevation, hyoid excursion, and duration of UES opening (Kristin, Lingual Resistance, Remi Maneuver or Effortful Breathhold and Swallow, Effortful Swallow, and CTAR). The patient would benefit from thorough education regarding diet recommendations and recommended compensatory strategies. Would consider patient for Ceja Free Water Protocol. Would also recommend consideration for thin liquid via tsp sips with use of hard swallow, cough and re-swallow after every sip, with direct supervision to assist with recommended strategies. Education Completed: 1. Described result of evaluation., 2. Pt understands evaluation & agrees with goals and treatment plan. and 7. Pt requires further education on strategies & risks. Status Active ST Patient: Active Contact Information [facility] Speech Therapy:: Steven Monsalve M.A. [employer] P[employer] Speech-Language Pathologist [facility] [address] [place] [address] [email or web address]
[2023-03-01 19:02] VITALS: BP 153/82; PULSE 72; RESP 17; TEMP 36.4; O2SAT 97
[2023-03-01] MEDS: Atorvastatin Calcium 10 MG Tablet PO ×2 (20:23→20:29)
[2023-03-01] MEDS: Amox/Clavulanate 875 MG Tablet PO (20:24)
[2023-03-01] MEDS: Mirtazapine 15 MG Tablet PO (20:24)
[2023-03-01] MEDS: Nystatin/Triamcin Oint 1 APPLIC TOPICAL (20:29)
[2023-03-02 05:54] LABS: Absolute Lymphocyte Count 1.31 X10^3/uL (0.83-4.51); Absolute Neutrophil Count 4.8 X10^3/uL (2.0-7.7); Basophil# 0.01 X10^3/uL; Basophil% 0.1 % (0-1); Eosinophil# 0.12 X10^3/uL; Eosinophils% 1.8 % (0-5); Hematocrit 35.9 % (40-54); Hemoglobin 11.2 g/dL (13.0-16.5); Lymphocyte # 1.31 X10^3/ul (0.83-4.51); Lymphocyte % 19.4 % (19-41); Mean Corp Hgb Conc 31.2 g/dL (32-36); Mean Corpuscular Hgb 30.7 pg (27.0-32.0); Mean Corpuscular Volume 98.4 fL (80-94); Mean Platelet Vol. 9.5 fl (6.2-12.0); Monocyte# 0.49 X10^3/uL; Monocyte% 7.2 % (0-10); NRBC Flagged by Analyzer 0 % (0-5); Neutrophil # 4.81 X10^3/uL (2.7-7.7); Neutrophil % 71.2 % (47-70); Platelet Count 157 K/mm3 (150-450); RBC Distribution Width CV 15.3 % (11.6-14.6); RBC Distribution Width SD 55.4 fl (35.1-43.9); Red Blood Count 3.65 M/mm3 (4.6-6.2); White Blood Count 6.8 K/mm3 (4.4-11.0)
[2023-03-02 06:00] VITALS: BMI 31.4
[2023-03-02 06:21] LABS: Anion Gap 2 (5-15); BUN 19 mg/dL (7-18); Calcium,Total 8.9 mg/dL (8.5-10.1); Chloride 113 mmol/L (98-107); Creatinine, Serum 1.27 mg/dL (0.70-1.30); EST Glomerular Filtration Rate 57 mL/min (>60); Est Glom Filt Rate - Afr Amer 69 mL/min (>60); Estimated Creatinine Clearance 41.14 ml/min; Glucose 94 mg/dL (74-106); Magnesium 2.3 mg/dL (1.6-2.6); Phosphorus 3.3 mg/dL (2.5-4.9); Potassium 4.2 mmol/L (3.5-5.1); Sodium Level 142 mmol/L (136-145)
[2023-03-02 07:43] VITALS: BP 136/72; PULSE 75; RESP 20; TEMP 36.4; O2SAT 93
[2023-03-02] MEDS: Fludrocortisone Acetate 0.1 MG Tablet 0.05 MG PO (08:18)
[2023-03-02] MEDS: Na Biphos/Potassium Phosphate PACKET 1 PACKET PO ×2 (08:18→21:05)
[2023-03-02] MEDS: Midodrine HCl 5 MG Tablet 10 MG PO ×3 (08:19→17:07)
[2023-03-02] MEDS: Nystatin Powder 15gm Bottle 1 APPLIC TOPICAL ×2 (08:19→21:07)
[2023-03-02] MEDS: Ensure Plus High Protein 120 ML LIQUID PO ×3 (08:19→17:07)
[2023-03-02] MEDS: Senna/Docusate Sodium 1 Tablet 2 TABLET PO ×2 (08:19→21:05)
[2023-03-02] MEDS: Menthol/Lanolin/Calamine/Znox 113 GM Tube 1 APPLIC TOPICAL ×2 (08:20→21:08)
[2023-03-02] MEDS: Amox/Clavulanate 875 MG Tablet PO ×2 (08:20→17:07)
[2023-03-02] MEDS: Nystatin/Triamcin Cream Tube 1 APPLIC TOPICAL ×2 (08:26→21:07)
[2023-03-02] MEDS: Ascorbic Acid 500 MG Tablet 1000 MG PO (12:10)
[2023-03-02] MEDS: Potassium Chloride Oral Tablet 20 MEQ PO ×2 (12:10→17:08)
[2023-03-02] MEDS: Ferrous Sulfate 325 MG Tablet PO (12:10)
--- NOTE | 2023-03-02 15:00 | CASEMGMT ---
Social Work SW met with pt's dtr, two brothers and sister to answer questions and discuss pt's DC needs. Discussed at length options for home vs AL. Family expressed opinions for each option. SW provided supportive listening and acknowledgement of feelings. SW reinforced IDT recommendations for AL for pt and d/t incontinence and safety concerns. At end of the discussion, all family agreed upon taking pt home and hiring aides to assist in the evenings/overnight. and family to assist during the day. SW educated dtr to FMLA through employer. Family to assist with meals. All in agreement to try it at home then move to AL if needed. SW to coordinate [facility] at DC; no DME needs. Family remained in room to contact [employer]CHNICIAN. Family expressed appreciation for this worker's assistance. ROBERTA Salvador
[2023-03-02 19:29] VITALS: BP 156/78; PULSE 69; RESP 18; TEMP 36.6; O2SAT 95
[2023-03-02] MEDS: Mirtazapine 15 MG Tablet PO (21:05)
[2023-03-02] MEDS: Atorvastatin Calcium 10 MG Tablet PO (21:05)
[2023-03-03 06:00] VITALS: BMI 31.5
[2023-03-03 07:48] VITALS: BP 107/65; PULSE 82; RESP 15; TEMP 36.3; O2SAT 91
[2023-03-03] MEDS: Amox/Clavulanate 875 MG Tablet PO ×2 (08:11→20:02)
[2023-03-03] MEDS: Ensure Plus High Protein 120 ML LIQUID PO ×3 (08:11→17:32)
[2023-03-03] MEDS: Na Biphos/Potassium Phosphate PACKET 1 PACKET PO ×2 (08:11→20:02)
[2023-03-03] MEDS: Midodrine HCl 5 MG Tablet 10 MG PO ×3 (08:11→17:31)
[2023-03-03] MEDS: Fludrocortisone Acetate 0.1 MG Tablet 0.05 MG PO (08:11)
[2023-03-03] MEDS: Nystatin Powder 15gm Bottle 1 APPLIC TOPICAL ×2 (08:17→20:02)
[2023-03-03] MEDS: Nystatin/Triamcin Cream Tube 1 APPLIC TOPICAL ×2 (08:17→20:02)
[2023-03-03] MEDS: Menthol/Lanolin/Calamine/Znox 113 GM Tube 1 APPLIC TOPICAL ×2 (08:18→20:02)
[2023-03-03] MEDS: Ferrous Sulfate 325 MG Tablet PO (11:50)
[2023-03-03] MEDS: Potassium Chloride Oral Tablet 20 MEQ PO ×2 (11:50→17:32)
[2023-03-03] MEDS: Ascorbic Acid 500 MG Tablet 1000 MG PO (11:50)
--- NOTE | 2023-03-03 14:23 | PN_ITS ---
Subjective Subjective Afebrile VSS Maintaining appropriate oxygen saturation on RA Oral intake is good He continues to be incontinent of urine making keeping track of intake and output difficult. Weight today is 207.2 pounds which is up from 205.3 pounds on 03/01/2023. Discussed with nursing - no problems that need addressed Reviewed the PT/OT/ST notes Medication list reviewed. Lab done yesterday showed a sodium of 142 and a potassium of 4.2. BUN was down to 19 from 24 and the creatinine is 1.27. Calcium, phosphorus and magnesium are all within normal limits. Bill denies lightheadedness, SOB at rest, CP, palpitations, dysuria, calf pain, constipation, nausea and vomiting. Objective Data Objective Data Vital Signs: Vital Signs Temp Pulse Resp BP Pulse Ox O2 Del Method O2 Flow Rate 97.4 F L 82 15 107/65 91 Room Air 0 03/03/23 07:48 03/03/23 07:48 03/03/23 07:48 03/03/23 07:48 03/03/23 07:48 03/03/23 07:48 01/24/23 20:40 FiO2 21 01/24/23 20:40 Oxygen Flow Rate (L/min) 0 Oxygen Delivery Method Room Air Weight: 207 lb 3.752 oz Body Mass Index (BMI) 31.5 Intake & Output: Intake and Output for Last 24 Hours 03/01/23 03/02/23 03/03/23 23:59 23:59 23:59 Intake Total 1350 / 1350 960 / 1020 540 / 540 Output Total 800 / 800 250 / 350 600 / 600 Balance 550 / 550 710 / 670 -60 / -60 Lab / Micro Data 03/02/23 05:41 03/02/23 05:41 Micro: Microbiology 02/26/23 14:00 Sputum, Expectorated/Coughed Gram Stain - Final 02/26/23 14:00 Sputum, Expectorated/Coughed Respiratory Culture - Final 02/26/23 04:53 Mucosa - Nose Respiratory Panel (PCR) - Final 02/26/23 05:51 Urine, Clean Catch Streptococcus pneumoniae Antigen (M - Final 02/25/23 19:00 Nasal Secretion SARS-CoV-2 Antigen (Rapid) - Final 02/12/23 18:30 Urine, Clean Catch Urine Culture - Final Mixed Gram Pos & Gram Neg Org Physical Exam Const alert and oriented x3 Constitutional Narrative: He was sitting in the recliner at the bedside when I entered the room with his feet dependent. He was not in any distress and his breathing was easy and not labored. General Appearance: cooperative Orientation / Consciousness: Negative for confused Resp Resp Narrative: He has crackles in both bases today and no wheezing. The R base was completely clear 2 days ago. He is not tachypneic and his breathing is not labored. Cardio regular rate and regular rhythm Cardio Narrative: distant heart sounds. Most of the time I think he is in paced rhythm at 70 BPM. Occasionally the rhythm is irregular but, the rate is always controlled. GI normal to inspection, nondistended, normoactive bowel sounds, soft to palpation and non-tender GI Narrative: Good bowel function. No guarding with palpation. Extremity no calf tenderness Extremity Narrative: The edema in the legs is increased today. He has pitting of the R posterior thigh again and the ankles have increased pitting today. ANNE hose are in place. General Extremity: edema Skin General Skin Exam: no breakdown Rashes: no rashes Psych cooperative and affect normal Psych Narrative: Anxious at times about his 's health and upcoming TAVR. Recent stress test negative for ischemia. 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 Continue therapy 2. Start Lasix 40 mg twice weekly on Wednesdays and Saturdays at 3 PM so as not to interfere with his therapy sessions. 3. Orthostatic vital signs Wednesday a.m. 4. BMP Wednesday a.m. 5. Continue daily weights 6. It is very difficult with urinary incontinence and possibly unreliable weights at times to ascertain what his state of hydration is. We are likely going to have to tolerate some LE edema to prevent severe orthostatic hypotension and syncope. Will need to communicate this to cardiology when he goes home. Charges/Coding Visit Charges Inpatient E&M: 37788 Subs Hosp L2
[2023-03-03] MEDS: Furosemide 40 MG Tablet PO (17:33)
[2023-03-03 18:57] VITALS: BP 154/79; PULSE 69; RESP 14; TEMP 36.8; O2SAT 95
[2023-03-03] MEDS: Senna/Docusate Sodium 1 Tablet 2 TABLET PO (20:01)
[2023-03-03] MEDS: Mirtazapine 15 MG Tablet PO (20:02)
[2023-03-03] MEDS: Atorvastatin Calcium 10 MG Tablet PO (20:02)
[2023-03-03 20:20] VITALS: PULSE 72; RESP 16
[2023-03-04 06:00] VITALS: BMI 31.3
[2023-03-04] MEDS: Fludrocortisone Acetate 0.1 MG Tablet 0.05 MG PO (08:48)
[2023-03-04] MEDS: Midodrine HCl 5 MG Tablet 10 MG PO ×3 (08:48→17:41)
[2023-03-04] MEDS: Senna/Docusate Sodium 1 Tablet 2 TABLET PO ×2 (08:48→20:19)
[2023-03-04] MEDS: Amox/Clavulanate 875 MG Tablet PO ×2 (08:48→20:19)
[2023-03-04] MEDS: Na Biphos/Potassium Phosphate PACKET 1 PACKET PO ×2 (08:48→20:20)
[2023-03-04] MEDS: Acetaminophen 500 MG Tablet 1000 MG PO (08:51)
[2023-03-04] MEDS: Ensure Plus High Protein 120 ML LIQUID PO ×3 (08:59→17:41)
[2023-03-04 09:10] VITALS: BP 138/66; PULSE 72; RESP 15; TEMP 36; O2SAT 93
[2023-03-04] MEDS: Potassium Chloride Oral Tablet 20 MEQ PO ×2 (12:07→17:41)
[2023-03-04] MEDS: Ferrous Sulfate 325 MG Tablet PO (12:07)
[2023-03-04] MEDS: Ascorbic Acid 500 MG Tablet 1000 MG PO (12:07)
[2023-03-04] MEDS: Menthol/Lanolin/Calamine/Znox 113 GM Tube 1 APPLIC TOPICAL ×2 (12:13→20:22)
[2023-03-04] MEDS: Nystatin/Triamcin Cream Tube 1 APPLIC TOPICAL ×2 (12:13→20:20)
[2023-03-04] MEDS: Nystatin Powder 15gm Bottle 1 APPLIC TOPICAL ×2 (12:13→20:21)
[2023-03-04 19:32] VITALS: BP 158/82; PULSE 71; RESP 18; TEMP 36.7; O2SAT 91
[2023-03-04 20:00] VITALS: PULSE 71; RESP 18; O2SAT 91
[2023-03-04] MEDS: Atorvastatin Calcium 10 MG Tablet PO (20:20)
[2023-03-04] MEDS: Mirtazapine 15 MG Tablet PO (20:20)
[2023-03-05 06:00] VITALS: BMI 31.3
[2023-03-05 07:52] VITALS: BP 129/69; PULSE 75; RESP 17; TEMP 36.1; O2SAT 93
[2023-03-05] MEDS: Ensure Plus High Protein 120 ML LIQUID PO ×3 (08:03→16:46)
[2023-03-05] MEDS: Fludrocortisone Acetate 0.1 MG Tablet 0.05 MG PO (08:04)
[2023-03-05] MEDS: Midodrine HCl 5 MG Tablet 10 MG PO ×3 (08:04→16:46)
[2023-03-05] MEDS: Na Biphos/Potassium Phosphate PACKET 1 PACKET PO ×2 (08:04→20:35)
[2023-03-05] MEDS: Senna/Docusate Sodium 1 Tablet 2 TABLET PO ×2 (08:04→20:34)
[2023-03-05] MEDS: Amox/Clavulanate 875 MG Tablet PO ×2 (08:04→20:34)
[2023-03-05] MEDS: Nystatin Powder 15gm Bottle 1 APPLIC TOPICAL ×2 (08:13→20:35)
[2023-03-05] MEDS: Menthol/Lanolin/Calamine/Znox 113 GM Tube 1 APPLIC TOPICAL ×2 (08:13→20:37)
[2023-03-05] MEDS: Nystatin/Triamcin Cream Tube 1 APPLIC TOPICAL ×2 (11:19→20:36)
[2023-03-05] MEDS: Potassium Chloride Oral Tablet 20 MEQ PO ×2 (12:39→16:46)
[2023-03-05] MEDS: Ferrous Sulfate 325 MG Tablet PO (12:39)
[2023-03-05] MEDS: Ascorbic Acid 500 MG Tablet 1000 MG PO (12:39)
[2023-03-05] MEDS: 0.9% Saline Lock 10 ML Syringe IV (13:59)
[2023-03-05 19:00] VITALS: BP 148/77; PULSE 69; RESP 16; TEMP 36.4; O2SAT 93
[2023-03-05] MEDS: Atorvastatin Calcium 10 MG Tablet PO (20:34)
[2023-03-05] MEDS: Mirtazapine 15 MG Tablet PO (20:34)
[2023-03-06 06:00] VITALS: BMI 31.4
[2023-03-06 07:44] VITALS: BP 107/52; PULSE 69; RESP 16; TEMP 36.2; O2SAT 95
[2023-03-06] MEDS: Ensure Plus High Protein 120 ML LIQUID PO ×3 (08:48→17:34)
[2023-03-06] MEDS: Fludrocortisone Acetate 0.1 MG Tablet 0.05 MG PO (08:49)
[2023-03-06] MEDS: Midodrine HCl 5 MG Tablet 10 MG PO ×3 (08:50→17:35)
[2023-03-06] MEDS: Amox/Clavulanate 875 MG Tablet PO ×2 (08:51→20:56)
[2023-03-06] MEDS: Na Biphos/Potassium Phosphate PACKET 1 PACKET PO ×2 (08:52→20:57)
[2023-03-06] MEDS: Menthol/Lanolin/Calamine/Znox 113 GM Tube 1 APPLIC TOPICAL ×2 (08:54→21:03)
[2023-03-06] MEDS: Nystatin Powder 15gm Bottle 1 APPLIC TOPICAL ×2 (08:56→21:04)
[2023-03-06] MEDS: Nystatin/Triamcin Cream Tube 1 APPLIC TOPICAL ×2 (08:56→21:04)
[2023-03-06] MEDS: Senna/Docusate Sodium 1 Tablet 2 TABLET PO ×2 (08:59→20:57)
[2023-03-06] MEDS: Ascorbic Acid 500 MG Tablet 1000 MG PO (11:56)
[2023-03-06] MEDS: Ferrous Sulfate 325 MG Tablet PO (11:57)
[2023-03-06] MEDS: Potassium Chloride Oral Tablet 20 MEQ PO ×2 (11:57→17:34)
[2023-03-06] MEDS: Furosemide 40 MG Tablet PO (14:46)
[2023-03-06 19:17] VITALS: BP 158/76; PULSE 69; RESP 18; TEMP 36.4; O2SAT 96
[2023-03-06] MEDS: Mirtazapine 15 MG Tablet PO (20:56)
[2023-03-06] MEDS: Atorvastatin Calcium 10 MG Tablet PO (20:57)
[2023-03-07 06:00] VITALS: BMI 32.4
[2023-03-07 07:21] VITALS: BP 135/76; PULSE 82; RESP 18; TEMP 36.4; O2SAT 93
[2023-03-07] MEDS: Senna/Docusate Sodium 1 Tablet 2 TABLET PO ×2 (09:48→20:36)
[2023-03-07] MEDS: Midodrine HCl 5 MG Tablet 10 MG PO ×3 (09:48→17:37)
[2023-03-07] MEDS: Fludrocortisone Acetate 0.1 MG Tablet 0.05 MG PO (09:49)
[2023-03-07] MEDS: Na Biphos/Potassium Phosphate PACKET 1 PACKET PO ×2 (09:49→20:36)
[2023-03-07] MEDS: Ensure Plus High Protein 120 ML LIQUID PO ×3 (09:52→17:37)
[2023-03-07] MEDS: Nystatin Powder 15gm Bottle 1 APPLIC TOPICAL ×2 (09:57→20:38)
[2023-03-07] MEDS: Nystatin/Triamcin Cream Tube 1 APPLIC TOPICAL ×2 (09:59→20:40)
[2023-03-07] MEDS: Menthol/Lanolin/Calamine/Znox 113 GM Tube 1 APPLIC TOPICAL ×2 (09:59→20:39)
[2023-03-07] MEDS: Ascorbic Acid 500 MG Tablet 1000 MG PO (12:52)
[2023-03-07] MEDS: Ferrous Sulfate 325 MG Tablet PO (12:52)
[2023-03-07] MEDS: Potassium Chloride Oral Tablet 20 MEQ PO ×2 (12:52→17:37)
[2023-03-07 20:00] VITALS: BP 150/78; PULSE 70; RESP 18; TEMP 36.8; O2SAT 98
[2023-03-07] MEDS: Mirtazapine 15 MG Tablet PO (20:36)
[2023-03-07] MEDS: Atorvastatin Calcium 10 MG Tablet PO (20:36)
[2023-03-08 05:55] LABS: Anion Gap 3 (5-15); BUN 17 mg/dL (7-18); BUN/Creat Ratio 14.8 RATIO (10-20); Calcium,Total 8.9 mg/dL (8.5-10.1); Chloride 111 mmol/L (98-107); Creatinine, Serum 1.15 mg/dL (0.70-1.30); EST Glomerular Filtration Rate 64 mL/min (>60); Est Glom Filt Rate - Afr Amer 78 mL/min (>60); Estimated Creatinine Clearance 45.43 ml/min; Glucose 95 mg/dL (74-106); Potassium 4.1 mmol/L (3.5-5.1); Sodium Level 145 mmol/L (136-145)
[2023-03-08 06:43] VITALS: BMI 31.5
[2023-03-08] MEDS: Na Biphos/Potassium Phosphate PACKET 1 PACKET PO ×2 (07:38→20:28)
[2023-03-08] MEDS: Ensure Plus High Protein 120 ML LIQUID PO ×2 (07:38→20:30)
[2023-03-08] MEDS: Fludrocortisone Acetate 0.1 MG Tablet 0.05 MG PO (07:38)
[2023-03-08] MEDS: Midodrine HCl 5 MG Tablet 10 MG PO ×3 (07:38→16:04)
[2023-03-08] MEDS: Menthol/Lanolin/Calamine/Znox 113 GM Tube 1 APPLIC TOPICAL ×2 (07:41→20:31)
[2023-03-08] MEDS: Nystatin Powder 15gm Bottle 1 APPLIC TOPICAL ×2 (07:41→20:31)
[2023-03-08 07:59] VITALS: BP 110/56; BP 144/75; BP 150/75; PULSE 69; PULSE 70; PULSE 73
[2023-03-08 08:01] VITALS: BP 150/75; PULSE 73; RESP 15; TEMP 36.2; O2SAT 95
--- NOTE | 2023-03-08 10:50 | PCM.PROGNOTE ---
Subjective Subjective Was seen on team rounds today. His family was present in the room and his daughter Sylvia participated by phone. The family had an opportunity to ask their questions and they were all answered to their satisfaction. Afebrile VSS-tilt positive but asymptomatic. Heart rate stays at 70 with very little change. Blood pressure lying down was 150/75 and standing up was 110/56. Maintaining appropriate oxygen saturation on RA-96% on room air. Oral intake is good Weight today is 207.5 pounds and this is stable for him. Discussed with nursing - no problems that need addressed Reviewed the PT/OT/ST notes Medication list reviewed. All lab drawn this morning was personally reviewed. Sodium is 145 and the potassium is stable at 4.1. BUN is 17 with a creatinine of 1.15 which is within his baseline. Leonard denies lightheadedness, vertigo, cephalgia, chest pain, palpitations, shortness of breath, nausea/vomiting/abdominal pain, dysuria and calf pain. He continues to have urinary incontinence at times and has urinary urgency. He is coughing much less since he was transitioned to nectar thick liquids. Objective Data Objective Data Vital Signs: Vital Signs Temp Pulse Resp BP Pulse Ox O2 Del Method O2 Flow Rate 97.1 F L 73 15 150/75 H 95 Room Air 0 03/08/23 08:01 03/08/23 08:01 03/08/23 08:01 03/08/23 08:01 03/08/23 08:01 03/08/23 08:01 01/24/23 20:40 FiO2 21 01/24/23 20:40 Oxygen Flow Rate (L/min) 0 Oxygen Delivery Method Room Air Weight: 207 lb 7.28 oz Body Mass Index (BMI) 31.5 Intake & Output: Intake and Output for Last 24 Hours 03/06/23 03/07/23 03/08/23 23:59 23:59 23:59 Intake Total 1600 / 1600 1240 / 1240 170 / 170 Output Total 1050 / 1050 850 / 850 250 / 250 Balance 550 / 550 390 / 390 -80 / -80 Lab / Micro Data 03/02/23 05:41 03/08/23 05:27 Labs: Laboratory Results - last 24 hr 03/08/23 05:27: Sodium 145, Potassium 4.1, Chloride 111 H, Carbon Dioxide 31.0, Anion Gap 3 L, BUN 17, Creatinine 1.15, Estim Creat Clear Calc 45.43, Est GFR (MDRD) Af Amer 78, Est GFR (MDRD) Non-Af 64, BUN/Creatinine Ratio 14.8, Glucose 95, Calcium 8.9 Micro: Microbiology 02/26/23 14:00 Sputum, Expectorated/Coughed Gram Stain - Final 02/26/23 14:00 Sputum, Expectorated/Coughed Respiratory Culture - Final 02/26/23 04:53 Mucosa - Nose Respiratory Panel (PCR) - Final 02/26/23 05:51 Urine, Clean Catch Streptococcus pneumoniae Antigen (M - Final 02/25/23 19:00 Nasal Secretion SARS-CoV-2 Antigen (Rapid) - Final 02/12/23 18:30 Urine, Clean Catch Urine Culture - Final Mixed Gram Pos & Gram Neg Org Physical Exam Const alert and no apparent distress General Appearance: cooperative HEENT Mouth: dry mucous membranes Resp normal respiratory effort and normal air movement Resp Narrative: He has a few coarse crackles in both bases but no wheezes and no fine crackles. Effort and Inspection: Negative for tachypneic or labored Cardio regular rate, regular rhythm and no gallops Cardio Narrative: Somewhat distant heart sounds. GI normal to inspection, nondistended, normoactive bowel sounds, soft to palpation and non-tender GI Narrative: No guarding with palpation. Extremity no calf tenderness Extremity Narrative: He has pitting edema of the ankles BL and the distal LE's. ANNE hose are in place. He has NO pitting edema of the posterior thighs. Legs are dependent. Skin General Skin Exam: no breakdown Rashes: no rashes Assessment & Plan Assessment/Plan (1) Debility: (2) Hemorrhagic cerebrovascular accident (CVA): (3) Subarachnoid hemorrhage: (4) Left-sided neglect: (5) Dysphagia: QUALIFIERS: Dysphagia type: oropharyngeal phase Qualified Code(s): R13.12 - Dysphagia, oropharyngeal phase (6) Hemianopia, homonymous, left: (7) Diastolic CHF: QUALIFIERS: Heart failure chronicity: acute Qualified Code(s): I50.31 - Acute diastolic (congestive) heart failure (8) Benign prostatic hyperplasia (BPH) with urinary urgency: (9) Orthostatic hypotension: (10) Chronic kidney disease, stage 3b: (11) Atrial fibrillation: QUALIFIERS: Atrial fibrillation type: paroxysmal Qualified Code(s): I48.0 - Paroxysmal atrial fibrillation (12) Generalized weakness: PLAN: Plan 1. Continue therapy. He is plateauing and I think he may do OK at home with family support. 2. Planning DC for Wednesday. 3. Will have HHC 4. Family will try and manage without hiring aids at DC and see how it goes. If the frequent urination and incontinence is the rate limiting factor could consider a Mak. I discussed this with Leonard and Emmanuelle. they understand that he would be at increased risk for UTI's but, if this would keep it at home and not in assisted living then he would be willing to try it. 5. Recheck lab on in preparation for DC 6. No changes to the drug regimen today. 7. We could try 1 more thing to get him through the night without getting up and that is a small dose of Desmopressin PO. Will speak with the pharmacist to see if they have the tablets. Charges/Coding Visit Charges Inpatient E&M: 24283 Subs Hosp L2
--- NOTE | 2023-03-08 12:40 | CASEMGMT ---
Social Work IDT met with patient and family for Team meeting. Discussed patient's progress in PT/OT/ST/SN. Educated to [facility] insurance with [facility] 03/12 and continued stay is not guaranteed. Pt is reaching plateau in therapy. Inquired about planning for DC. Dtr noted that when pt did not DC home last weekend, his mood declined. IDT offered to set DC for 03/13. All family in agreement and have DME ordered. Offered family shared cared prior to DC. Dtr stated family has decided to try it at home with the family before hiring aides. SW confirmed coordinating [facility] PT/OT/ST/SN/FREITAS/SW. Family to transport. Phoned referral to [facility]. Plan: DC home with 03/13, [facility] PT/OT/ST/SN/FREITAS/SW ROBERTA SalvadorW
[2023-03-08] MEDS: Potassium Chloride Oral Tablet 20 MEQ PO ×2 (12:41→16:03)
[2023-03-08] MEDS: Nystatin/Triamcin Cream Tube 1 APPLIC TOPICAL ×2 (12:41→20:30)
[2023-03-08] MEDS: Ascorbic Acid 500 MG Tablet 1000 MG PO (12:42)
[2023-03-08] MEDS: Ferrous Sulfate 325 MG Tablet PO (12:42)
[2023-03-08] MEDS: Furosemide 40 MG Tablet PO (15:50)
[2023-03-08 19:40] VITALS: BP 146/72; PULSE 69; RESP 16; TEMP 36.7; O2SAT 95
[2023-03-08] MEDS: Atorvastatin Calcium 10 MG Tablet PO (20:27)
[2023-03-08] MEDS: Mirtazapine 15 MG Tablet PO (20:27)
[2023-03-08] MEDS: Senna/Docusate Sodium 1 Tablet 2 TABLET PO (20:28)
[2023-03-09 06:00] VITALS: BMI 31.4
[2023-03-09 07:25] VITALS: BP 107/56; PULSE 71; RESP 16; TEMP 36.3; O2SAT 93
[2023-03-09] MEDS: Midodrine HCl 5 MG Tablet 10 MG PO ×3 (08:06→17:04)
[2023-03-09] MEDS: Na Biphos/Potassium Phosphate PACKET 1 PACKET PO ×2 (08:06→21:08)
[2023-03-09] MEDS: Fludrocortisone Acetate 0.1 MG Tablet 0.05 MG PO (08:07)
[2023-03-09] MEDS: Ensure Plus High Protein 120 ML LIQUID PO ×2 (08:07→21:07)
[2023-03-09] MEDS: Nystatin Powder 15gm Bottle 1 APPLIC TOPICAL ×2 (08:10→21:08)
[2023-03-09] MEDS: Nystatin/Triamcin Cream Tube 1 APPLIC TOPICAL ×2 (08:10→21:18)
[2023-03-09] MEDS: Menthol/Lanolin/Calamine/Znox 113 GM Tube 1 APPLIC TOPICAL ×2 (08:11→21:17)
[2023-03-09] MEDS: Ascorbic Acid 500 MG Tablet 1000 MG PO (12:03)
[2023-03-09] MEDS: Potassium Chloride Oral Tablet 20 MEQ PO ×2 (12:03→17:04)
[2023-03-09] MEDS: Ferrous Sulfate 325 MG Tablet PO (12:03)
--- NOTE | 2023-03-09 14:52 | PCM.PROGNOTE ---
Subjective Subjective Afebrile VSS Maintaining appropriate oxygen saturation on RA Oral intake is good Fluid balance for 03/08/2023 was -30. Since midnight he is -110. Weight since yesterday did not change and is 207.5 pounds. Discussed with nursing - no problems that need addressed Reviewed the PT/OT/ST notes Medication list reviewed. Denies lightheadedness. Denies SOB. He tells me he did not sleep well last night because he has too much on his mind. He denies palpitations, chest pain, calf tenderness and dysuria. Objective Data Objective Data Vital Signs: Vital Signs Temp Pulse Resp BP Pulse Ox O2 Del Method O2 Flow Rate 97.3 F L 71 16 107/56 L 93 Room Air 0 03/09/23 07:25 03/09/23 07:25 03/09/23 07:25 03/09/23 07:25 03/09/23 07:25 03/09/23 07:25 01/24/23 20:40 FiO2 21 01/24/23 20:40 Oxygen Flow Rate (L/min) 0 Oxygen Delivery Method Room Air Weight: 207 lb 8 oz Body Mass Index (BMI) 31.4 Intake & Output: Intake and Output for Last 24 Hours 03/07/23 03/08/23 03/09/23 23:59 23:59 23:59 Intake Total 1240 / 1240 1170 / 1170 840 / 840 Output Total 850 / 850 1200 / 1450 950 / 950 Balance 390 / 390 -30 / -280 -110 / -110 Lab / Micro Data 03/02/23 05:41 03/08/23 05:27 Micro: Microbiology 02/26/23 14:00 Sputum, Expectorated/Coughed Gram Stain - Final 02/26/23 14:00 Sputum, Expectorated/Coughed Respiratory Culture - Final 02/26/23 04:53 Mucosa - Nose Respiratory Panel (PCR) - Final 02/26/23 05:51 Urine, Clean Catch Streptococcus pneumoniae Antigen (M - Final 02/25/23 19:00 Nasal Secretion SARS-CoV-2 Antigen (Rapid) - Final 02/12/23 18:30 Urine, Clean Catch Urine Culture - Final Mixed Gram Pos & Gram Neg Org Physical Exam Const alert and no apparent distress General Appearance: cooperative HEENT moist oral mucous membranes Resp Resp Narrative: Auscultation of the right base reveals no crackles, no rhonchi no wheezes today. There are coarse crackles in the left base which I suspect are due to recent left basilar pneumonia/possible scarring. Effort and Inspection: Negative for tachypneic or labored Cardio regular rate and regular rhythm GI normal to inspection, nondistended, normoactive bowel sounds, soft to palpation and non-tender GI Narrative: No guarding with palpation Extremity no calf tenderness Extremity Narrative: Pitting edema is limited to the area distal to the knees. Skin General Skin Exam: no breakdown Rashes: no rashes Psych cooperative Psych Narrative: Seems a little anxious about going home, his 's upcoming TAVR procedure and what medications he will take when he goes home. He is not sleeping as well at night. Assessment & Plan Assessment/Plan (1) Debility: (2) Hemorrhagic cerebrovascular accident (CVA): (3) Subarachnoid hemorrhage: (4) Left-sided neglect: (5) Dysphagia: QUALIFIERS: Dysphagia type: oropharyngeal phase Qualified Code(s): R13.12 - Dysphagia, oropharyngeal phase (6) Hemianopia, homonymous, left: (7) Diastolic CHF: QUALIFIERS: Heart failure chronicity: acute Qualified Code(s): I50.31 - Acute diastolic (congestive) heart failure (8) Benign prostatic hyperplasia (BPH) with urinary urgency: (9) Orthostatic hypotension: (10) Chronic kidney disease, stage 3b: (11) Atrial fibrillation: QUALIFIERS: Atrial fibrillation type: paroxysmal Qualified Code(s): I48.0 - Paroxysmal atrial fibrillation (12) Generalized weakness: PLAN: Plan 1. Continue therapy 2. Change the Lasix to 40 mg p.o. every 48 hours and continue to monitor daily weights. 3. CMP, CBC with no differential, magnesium and phosphorus on in preparation for discharge Wednesday. 4. I have asked Bill to ask his Emmanuelle and if she will bring in all his medications so we do not duplicate medications at discharge. Charges/Coding Visit Charges Inpatient E&M: 08335 Subs Hosp L2
[2023-03-09] MEDS: Furosemide 40 MG Tablet PO (17:04)
[2023-03-09 19:26] VITALS: BP 152/92; PULSE 70; RESP 18; TEMP 36.7; O2SAT 97
[2023-03-09] MEDS: Mirtazapine 15 MG Tablet 22.5 MG PO (21:06)
[2023-03-09] MEDS: Atorvastatin Calcium 10 MG Tablet PO (21:07)
[2023-03-09] MEDS: Senna/Docusate Sodium 1 Tablet 2 TABLET PO (21:08)
[2023-03-09 22:00] VITALS: PULSE 70; RESP 18; O2SAT 97
[2023-03-10 05:28] VITALS: BMI 31.6
[2023-03-10 07:13] VITALS: BP 101/57; PULSE 79; RESP 16; TEMP 36.7; O2SAT 93
[2023-03-10] MEDS: Fludrocortisone Acetate 0.1 MG Tablet 0.05 MG PO (09:08)
[2023-03-10] MEDS: Senna/Docusate Sodium 1 Tablet 2 TABLET PO ×2 (09:08→20:53)
[2023-03-10] MEDS: Midodrine HCl 5 MG Tablet 10 MG PO ×3 (09:09→17:14)
[2023-03-10] MEDS: Menthol/Lanolin/Calamine/Znox 113 GM Tube 1 APPLIC TOPICAL ×2 (09:11→20:51)
[2023-03-10] MEDS: Ensure Plus High Protein 120 ML LIQUID PO ×2 (09:11→20:52)
[2023-03-10] MEDS: Na Biphos/Potassium Phosphate PACKET 1 PACKET PO ×2 (09:12→20:53)
[2023-03-10] MEDS: Nystatin/Triamcin Cream Tube 1 APPLIC TOPICAL ×2 (09:12→20:51)
[2023-03-10] MEDS: Nystatin Powder 15gm Bottle 1 APPLIC TOPICAL ×2 (09:12→20:52)
[2023-03-10] MEDS: Potassium Chloride Oral Tablet 20 MEQ PO ×2 (11:52→17:14)
[2023-03-10] MEDS: Ascorbic Acid 500 MG Tablet 1000 MG PO (11:52)
[2023-03-10] MEDS: Ferrous Sulfate 325 MG Tablet PO (11:52)
--- NOTE | 2023-03-10 11:52 | PCM.PROGNOTE ---
Subjective Subjective Afebrile VSS Maintaining appropriate oxygen saturation on RA Oral intake is good Fluid balance yesterday was +150 but, this does not include the 5 times he was incontinent of urine........ he did not receive Lasix yesterday but is getting Lasix today and it is ordered for every 48 hours. Discussed with nursing -he was awakened 3 times last night for toileting and was incontinent x5. Reviewed the PT/OT/ST notes Medication list reviewed. Leonard denies cephalgia, lightheadedness, palpitations, chest pain, shortness of breath at rest, nausea/vomiting/abdominal pain, dysuria and calf tenderness. He is ambulating with a front wheel walker at a good pace. Objective Data Objective Data Vital Signs: Vital Signs Temp Pulse Resp BP Pulse Ox O2 Del Method O2 Flow Rate 98.1 F 79 16 101/57 L 93 Room Air 0 03/10/23 07:13 03/10/23 07:13 03/10/23 07:13 03/10/23 07:13 03/10/23 07:13 03/10/23 07:13 01/24/23 20:40 FiO2 21 01/24/23 20:40 Oxygen Flow Rate (L/min) 0 Oxygen Delivery Method Room Air Weight: 208 lb 8.917 oz Body Mass Index (BMI) 31.6 Intake & Output: Intake and Output for Last 24 Hours 03/08/23 03/09/23 03/10/23 23:59 23:59 23:59 Intake Total 1170 / 1170 1500 / 1500 480 / 480 Output Total 1200 / 1450 1600 / 1600 300 / 300 Balance -30 / -280 -100 / -100 180 / 180 Lab / Micro Data 03/11/23 05:23 03/11/23 05:23 Micro: Microbiology 02/26/23 14:00 Sputum, Expectorated/Coughed Gram Stain - Final 02/26/23 14:00 Sputum, Expectorated/Coughed Respiratory Culture - Final 02/26/23 04:53 Mucosa - Nose Respiratory Panel (PCR) - Final 02/26/23 05:51 Urine, Clean Catch Streptococcus pneumoniae Antigen (M - Final 02/25/23 19:00 Nasal Secretion SARS-CoV-2 Antigen (Rapid) - Final 02/12/23 18:30 Urine, Clean Catch Urine Culture - Final Mixed Gram Pos & Gram Neg Org Physical Exam Const alert General Appearance: cooperative Resp Resp Narrative: CTA on the R and coarse crackles in the left base. Effort and Inspection: Negative for tachypneic, respiratory distress or labored Auscultation: Negative for wheezes Cardio regular rate and regular rhythm GI normal to inspection, nondistended, normoactive bowel sounds, soft to palpation and non-tender Extremity no calf tenderness Extremity Narrative: Still with pitting edema of the LE's to the knees BL, L>R. Skin General Skin Exam: no breakdown Rashes: no rashes Assessment & Plan Assessment/Plan (1) Debility: (2) Hemorrhagic cerebrovascular accident (CVA): (3) Subarachnoid hemorrhage: (4) Left-sided neglect: (5) Dysphagia: QUALIFIERS: Dysphagia type: oropharyngeal phase Qualified Code(s): R13.12 - Dysphagia, oropharyngeal phase (6) Hemianopia, homonymous, left: (7) Diastolic CHF: QUALIFIERS: Heart failure chronicity: acute Qualified Code(s): I50.31 - Acute diastolic (congestive) heart failure (8) Benign prostatic hyperplasia (BPH) with urinary urgency: (9) Orthostatic hypotension: (10) Chronic kidney disease, stage 3b: (11) Atrial fibrillation: QUALIFIERS: Atrial fibrillation type: paroxysmal Qualified Code(s): I48.0 - Paroxysmal atrial fibrillation (12) Generalized weakness: (13) Urinary incontinence: PLAN: Plan 1. Continue therapy 2. Start desmopressin 0.1 mg p.o. nightly for severe nocturia 3. reinforced the need to elevate his legs when he is sitting in the recliner. 4. continue the increased dose of Remeron 5. Recheck orthostatics in the a.m. Charges/Coding Visit Charges Inpatient E&M: 78073 Subs Hosp L2
[2023-03-10 19:20] VITALS: BP 152/83; PULSE 70; RESP 16; TEMP 36.9; O2SAT 96
[2023-03-10] MEDS: Mirtazapine 15 MG Tablet 22.5 MG PO (20:50)
[2023-03-10] MEDS: Atorvastatin Calcium 10 MG Tablet PO (20:52)
[2023-03-10 21:15] VITALS: PULSE 73; RESP 16; O2SAT 96
[2023-03-11 05:35] LABS: Hematocrit 36.9 % (40-54); Hemoglobin 11.8 g/dL (13.0-16.5); Mean Corpuscular Hgb 30.9 pg (27.0-32.0); Mean Corpuscular Volume 96.6 fL (80-94); Mean Platelet Vol. 9.3 fl (6.2-12.0); Platelet Count 134 K/mm3 (150-450); RBC Distribution Width CV 15.2 % (11.6-14.6); RBC Distribution Width SD 54.3 fl (35.1-43.9); Red Blood Count 3.82 M/mm3 (4.6-6.2); White Blood Count 7.4 K/mm3 (4.4-11.0)
[2023-03-11 05:49] VITALS: BMI 31.1
[2023-03-11 05:58] LABS: AST(SGOT) 14 U/L (15-37); Alanine Aminotransfer ALT/SGPT 19 U/L (16-61); Alkaline Phosphatase 115 U/L (45-117); Anion Gap 2 (5-15); BUN 18 mg/dL (7-18); Calcium,Total 8.8 mg/dL (8.5-10.1); Chloride 110 mmol/L (98-107); Creatinine, Serum 1.06 mg/dL (0.70-1.30); EST Glomerular Filtration Rate 70 mL/min (>60); Est Glom Filt Rate - Afr Amer 85 mL/min (>60); Estimated Creatinine Clearance 49.29 ml/min; Globulin 3.1 g/dL (2.2-4.2); Glucose 93 mg/dL (74-106); Magnesium 2.4 mg/dL (1.6-2.6); Phosphorus 3.1 mg/dL (2.5-4.9); Potassium 4.1 mmol/L (3.5-5.1); Protein, Total 6.1 g/dL (6.4-8.2); Sodium Level 143 mmol/L (136-145)
[2023-03-11 06:47] VITALS: BP 103/52; BP 134/68; BP 148/65; PULSE 70; PULSE 71
[2023-03-11 07:32] VITALS: BP 142/86; PULSE 73; RESP 15; TEMP 36.1; O2SAT 93
[2023-03-11] MEDS: Fludrocortisone Acetate 0.1 MG Tablet 0.05 MG PO (07:51)
[2023-03-11] MEDS: Midodrine HCl 5 MG Tablet 10 MG PO ×3 (07:51→16:46)
[2023-03-11] MEDS: Na Biphos/Potassium Phosphate PACKET 1 PACKET PO ×2 (07:51→21:05)
[2023-03-11] MEDS: Senna/Docusate Sodium 1 Tablet 2 TABLET PO ×2 (07:51→21:06)
--- NOTE | 2023-03-11 09:35 | PN_ITS ---
Subjective Subjective afebrile VSS-orthostatic blood pressures were done today. His blood pressure lying down was 134/68, sitting was 148/65 and standing was 103/52. He was asymptomatic. The heart rate did not vary with changes in position. Maintaining appropriate oxygen saturation on RA Oral intake is good Fluid balance yesterday was -10+ urine incontinence. Overnight he was -1 30+ incontinence. Weight today is 205.7. Discussed with nursing - no problems that need addressed Reviewed the PT/OT/ST notes Medication list reviewed. All lab drawn this morning was personally reviewed. White blood cell count is normal at 7.4 and the hemoglobin is 11.8, up from 11.2 a week ago. Platelets are mildly decreased at 134. Sodium is 143 and the potassium is 4.1 and stable. The BUN is 18 and the creatinine is excellent at 1.06. Phosphorus and magnesium are both within normal limits. LFTs are normal. Leonard denies lightheadedness, cephalgia, nausea/vomiting/abdominal pain, chest pain, shortness of breath at rest, calf tenderness and dysuria. He has no cough now that the liquids are being thickened. Objective Data Objective Data Vital Signs: Vital Signs Temp Pulse Resp BP Pulse Ox O2 Del Method O2 Flow Rate 96.9 F L 73 15 142/86 H 93 Room Air 0 03/11/23 07:32 03/11/23 07:32 03/11/23 07:32 03/11/23 07:32 03/11/23 07:32 03/11/23 07:32 01/24/23 20:40 FiO2 21 01/24/23 20:40 Oxygen Flow Rate (L/min) 0 Oxygen Delivery Method Room Air Weight: 205 lb 11.06 oz Body Mass Index (BMI) 31.1 Intake & Output: Intake and Output for Last 24 Hours 03/09/23 03/10/23 03/11/23 23:59 23:59 23:59 Intake Total 1500 / 1500 1290 / 1290 270 / 270 Output Total 1600 / 1600 1300 / 1500 400 / 400 Balance -100 / -100 -10 / -210 -130 / -130 Lab / Micro Data 03/11/23 05:23 03/11/23 05:23 Labs: Laboratory Results - last 24 hr 03/11/23 05:23: WBC 7.4, RBC 3.82 L, Hgb 11.8 L, Hct 36.9 L, MCV 96.6 H, MCH 30.9, MCHC 32.0, RDW Std Deviation 54.3 H, RDW Coeff of Radha 15.2 H, Plt Count 134 L, MPV 9.3, Sodium 143, Potassium 4.1, Chloride 110 H, Carbon Dioxide 31.0, Anion Gap 2 L, BUN 18, Creatinine 1.06, Estim Creat Clear Calc 49.29, Est GFR (MDRD) Af Amer 85, Est GFR (MDRD) Non-Af 70, BUN/Creatinine Ratio 17.0, Glucose 93, Calcium 8.8, Phosphorus 3.1, Magnesium 2.4, Total Bilirubin 0.90, AST 14 L, ALT 19, Alkaline Phosphatase 115, Total Protein 6.1 L, Albumin 3.0 L, Globulin 3.1, Albumin/Globulin Ratio 1.0 Micro: Microbiology 02/26/23 14:00 Sputum, Expectorated/Coughed Gram Stain - Final 02/26/23 14:00 Sputum, Expectorated/Coughed Respiratory Culture - Final 02/26/23 04:53 Mucosa - Nose Respiratory Panel (PCR) - Final 02/26/23 05:51 Urine, Clean Catch Streptococcus pneumoniae Antigen (M - Final 02/25/23 19:00 Nasal Secretion SARS-CoV-2 Antigen (Rapid) - Final 02/12/23 18:30 Urine, Clean Catch Urine Culture - Final Mixed Gram Pos & Gram Neg Org Physical Exam Const alert and no apparent distress Constitutional Narrative: Sitting in the recliner napping when I entered the room. General Appearance: cooperative HEENT moist oral mucous membranes Resp Resp Narrative: coarse crackles in both bases.....may be atelectasis since he was sleeping when I entered the room. Effort and Inspection: Negative for tachypneic, labored or uses accessory mus cles Cardio regular rate and regular rhythm Cardio Narrative: no ectopy, somewhat distant heart sounds. GI normal to inspection, nondistended, normoactive bowel sounds, soft to palpation and non-tender Extremity no calf tenderness Extremity Narrative: He has pitting edema of both LE's to the knees BL. His feet were elevated today when I entered the room. General Extremity: edema Skin General Skin Exam: no breakdown Rashes: no rashes Assessment & Plan Assessment/Plan (1) Debility: (2) Hemorrhagic cerebrovascular accident (CVA): (3) Subarachnoid hemorrhage: (4) Left-sided neglect: (5) Dysphagia: QUALIFIERS: Dysphagia type: oropharyngeal phase Qualified Code(s): R13.12 - Dysphagia, oropharyngeal phase (6) Hemianopia, homonymous, left: (7) Diastolic CHF: QUALIFIERS: Heart failure chronicity: acute Qualified Code(s): I50.31 - Acute diastolic (congestive) heart failure (8) Benign prostatic hyperplasia (BPH) with urinary urgency: (9) Orthostatic hypotension: (10) Chronic kidney disease, stage 3b: (11) Atrial fibrillation: QUALIFIERS: Atrial fibrillation type: paroxysmal Qualified Code(s): I48.0 - Paroxysmal atrial fibrillation (12) Generalized weakness: PLAN: Plan 1. Continue therapy 2. PA and lateral CXR today 3. orthostatics in the AM 4. Increase the Lasix to 60 mg daily at 1500. 5. Continue Desmopressin at night.......he only had 1 episode of incontinence last night. 6. DC Wednesday to home with [facility] His brought in all his medications and I will check them against what he is taking now. Will schedule an appt with Dr. Russ post DC He has had syncopal episodes and falls prior to the stroke. 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 The risk for anticoagulating him for AF exceeds the benefit at this time. No Xarelto at DC. Charges/Coding Visit Charges Inpatient E&M: 60149 Subs Hosp L2
[2023-03-11] MEDS: Nystatin Powder 15gm Bottle 1 APPLIC TOPICAL ×2 (10:26→21:06)
[2023-03-11] MEDS: Nystatin/Triamcin Cream Tube 1 APPLIC TOPICAL ×2 (10:26→21:06)
[2023-03-11] MEDS: Menthol/Lanolin/Calamine/Znox 113 GM Tube 1 APPLIC TOPICAL ×2 (10:27→21:07)
[2023-03-11] MEDS: Ferrous Sulfate 325 MG Tablet PO (11:51)
[2023-03-11] MEDS: Ascorbic Acid 500 MG Tablet 1000 MG PO (11:51)
[2023-03-11] MEDS: Potassium Chloride Oral Tablet 20 MEQ PO ×2 (11:51→16:46)
--- NOTE | 2023-03-11 12:55 | RAD_ITS ---
STUDY: X-RAY CHEST REASON FOR EXAM: Male, 87 years old. [place]. TECHNIQUE: Frontal and lateral views of the chest. COMPARISON: January 26, 2023. FINDINGS: Stable marked cardiomegaly, sternotomy wires, aortic tortuosity with calcification and low volume inspiration with marked elevation of the right hemidiaphragm and bibasilar atelectasis, right greater than left. No new or acute finding. No abnormality of the visualized soft tissue structures of the upper abdomen. RAD/Chest PA and Lateral IMPRESSION: Stable chest with no acute or active cardiopulmonary disease. Electronically Signed: Arley Avelar MD at 13:11 EDT ,
[2023-03-11] MEDS: Furosemide 40 MG Tablet 60 MG PO (16:46)
[2023-03-11 20:55] VITALS: BP 147/69; PULSE 70; RESP 17; TEMP 36.4; O2SAT 96
[2023-03-11] MEDS: Mirtazapine 15 MG Tablet 22.5 MG PO (21:05)
[2023-03-11] MEDS: Ensure Plus High Protein 120 ML LIQUID PO (21:05)
[2023-03-11] MEDS: Atorvastatin Calcium 10 MG Tablet PO (21:06)
[2023-03-12 05:35] VITALS: BMI 30.9
[2023-03-12 05:48] VITALS: BP 104/59; BP 125/68; BP 82/40; PULSE 71; PULSE 72; PULSE 73
[2023-03-12 05:55] VITALS: BP 104/59; BP 125/68; BP 82/40; PULSE 71; PULSE 72; PULSE 73
[2023-03-12] MEDS: Midodrine HCl 5 MG Tablet 10 MG PO ×3 (07:52→16:33)
[2023-03-12] MEDS: Senna/Docusate Sodium 1 Tablet 2 TABLET PO ×2 (07:53→20:40)
[2023-03-12] MEDS: Nystatin Powder 15gm Bottle 1 APPLIC TOPICAL ×2 (07:53→20:46)
[2023-03-12] MEDS: Fludrocortisone Acetate 0.1 MG Tablet 0.05 MG PO (07:53)
[2023-03-12] MEDS: Na Biphos/Potassium Phosphate PACKET 1 PACKET PO ×2 (07:53→20:40)
[2023-03-12] MEDS: Ensure Plus High Protein 120 ML LIQUID PO ×2 (07:53→20:39)
[2023-03-12] MEDS: Menthol/Lanolin/Calamine/Znox 113 GM Tube 1 APPLIC TOPICAL ×2 (07:54→20:46)
[2023-03-12] MEDS: Nystatin/Triamcin Cream Tube 1 APPLIC TOPICAL ×2 (07:54→20:45)
[2023-03-12 08:42] VITALS: BP 115/65; PULSE 85; RESP 15; TEMP 37; O2SAT 95
--- NOTE | 2023-03-12 11:20 | PN_ITS ---
Subjective Subjective Afebrile VSS-blood pressure lying down today was 104/59, sitting up it was 125/68 and standing was 82/48. He denies lightheadedness. Maintaining appropriate oxygen saturation on RA Oral intake is good weight today is 204.1 pounds which is down from 208.6 pounds on 03/10/2023. Fluid balance yesterday was +230 but it is likely in the negative range because of the incontinence. Overnight he was -350. Discussed with nursing - He was incontinent twice last night. Reviewed the PT/OT/ST notes Medication list reviewed. Leonard denies lightheadedness. I observed him doing the tug test, sit to stands and the NuStep and he was moving at a very good pace. He was not diaphoretic, had no nausea and denied lightheadedness. He denies chest pain, palpitations, shortness of breath, dysuria and calf tenderness. He continues to perseverate on the medications he will be taking at [facility] and can not seem to remember from 1 day to the next that I told him he will no longer be taking Xarelto and he is upset that he paid for this medication and now he can no take it. He wants me to make sure that Dr. Russ agrees with the medications he is being discharged on. I related that medications may change.......as his c ondition changes and there is no guarantee that what he is taking now will be the same as what he will be taking in the next month. I will try and connect with Dr. Russ to go over the changes. Objective Data Objective Data Vital Signs: Vital Signs Temp Pulse Resp BP Pulse Ox O2 Del Method O2 Flow Rate 98.6 F 85 15 115/65 95 Room Air 0 03/12/23 08:42 03/12/23 08:42 03/12/23 08:42 03/12/23 08:42 03/12/23 08:42 03/12/23 08:42 01/24/23 20:40 FiO2 21 01/24/23 20:40 Oxygen Flow Rate (L/min) 0 Oxygen Delivery Method Room Air Weight: 204 lb 2.369 oz Body Mass Index (BMI) 30.9 Intake & Output: Intake and Output for Last 24 Hours 03/10/23 03/11/23 03/12/23 23:59 23:59 23:59 Intake Total 1290 / 1290 930 / 930 Output Total 1300 / 1500 700 / 700 350 / 350 Balance -10 / -210 230 / 230 -350 / -350 Lab / Micro Data 03/11/23 05:23 03/11/23 05:23 Micro: Microbiology 02/26/23 14:00 Sputum, Expectorated/Coughed Gram Stain - Final 02/26/23 14:00 Sputum, Expectorated/Coughed Respiratory Culture - Final 02/26/23 04:53 Mucosa - Nose Respiratory Panel (PCR) - Final 02/26/23 05:51 Urine, Clean Catch Streptococcus pneumoniae Antigen (M - Final 02/25/23 19:00 Nasal Secretion SARS-CoV-2 Antigen (Rapid) - Final 02/12/23 18:30 Urine, Clean Catch Urine Culture - Final Mixed Gram Pos & Gram Neg Org Radiography Diagnostic Testing: Radiology Impression Chest X-Ray 03/11/23 12:55 IMPRESSION: Stable chest with no acute or active cardiopulmonary disease. Electronically Signed: Arley Avelar MD at 13:11 EDT , Physical Exam Const alert and no apparent distress General Appearance: cooperative Resp Resp Narrative: He has coarse crackles in both bases. No wheezing and no rhonchi. He is not tachypneic and has no labored respirations......even when ambulating quickly. Good air exchange. He admitted to me that he only occasionally uses the IS and PEP. The crackles are more consistent with atelectasis now and not with diastolic CHF. Cardio regular rate and regular rhythm Cardio Narrative: distant. No gallop GI normal to inspection, nondistended, normoactive bowel sounds, soft to palpation and non-tender GI Narrative: no guarding with palpation Inspection: Negative for abdominal distention Auscultation: Negative for hyperactive bowel sounds Skin General Skin Exam: Negative for no breakdown Rashes: No no rashes Wounds: Negative for wounds noted Psych cooperative Psych Narrative: He is anxious about going home and delma about his medications. Unfortunately his short term memory is impaired and he can not recall what I tell him from one day to the next. He is sleeping well and eating well. Appearance: appropriate Attitude: No agitated Activity / Motor Behavior: Negative for restless Assessment & Plan Assessment/Plan (1) Debility: PLAN: He is much better than at admission. (2) Hemorrhagic cerebrovascular accident (CVA): (3) Subarachnoid hemorrhage: (4) Left-sided neglect: PLAN: much improved. (5) Dysphagia: QUALIFIERS: Dysphagia type: oropharyngeal phase Qualified Code(s): R13.12 - Dysphagia, oropharyngeal phase PLAN: Will need to continue nectar thick liquids. He had aspiration PNA on thins and was coughing with eating but, delma with drinking. Recent MBS abnormal. will need continued ST post DC. (6) Hemianopia, homonymous, left: (7) Diastolic CHF: QUALIFIERS: Heart failure chronicity: acute Qualified Code(s): I50.31 - Acute diastolic (congestive) heart failure (8) Benign prostatic hyperplasia (BPH) with urinary urgency: (9) Orthostatic hypotension: PLAN: Continue Midodrine and Florinef. (10) Chronic kidney disease, stage 3b: (11) Atrial fibrillation: QUALIFIERS: Atrial fibrillation type: paroxysmal Qualified Code(s): I48.0 - Paroxysmal atrial fibrillation (12) Generalized weakness: (13) Urinary incontinence: QUALIFIERS: Urinary Incontinence type: urge incontinence Qualified Code(s): N39.41 - Urge incontinence PLAN: Plan 1. DC tomorrow 2. Will try and connect with Dr. Russ about the new diagnosis of severe orthostatic hypotension and midodrine and Florinef. Will also try and connect with Charlie HOFFMAN who sometimes sees Bill in the office. 3. No Xarelto at [facility] - with the falls and syncope at home and the intracerebral hemorrhage/SDH/SAH prior to admission to rehab the risk exceeds benefit of anticoagulation. 4. No Flomax due to severe orthostatic hypotension. 5. Check a BMP in 5-7 days days 6. F/U with Dr. Kennedy, Dr. Russ and with neurology. 7. C at [facility] for OT/PT/ST and RN. 8. Orthostatic VS's once weekly for the next 3 weeks 9. will need to monitor for low sodium while on desmopressin and may need to make the Lasix QOD if he starts to get lightheaded. It is quite a challenge to keep the fluid out of the lungs without causing syncope from severe orthostatic hypotension. He needs his rest at night and some nights he is up every 1 hour with incontinence or need to urinate. Can not use Flomax due to the orthostatic hypotension. He failed a TCA. Trying Desmopressin. Charges/Coding Visit Charges Inpatient E&M: 27091 Subs Hosp L2
[2023-03-12] MEDS: Ascorbic Acid 500 MG Tablet 1000 MG PO (11:51)
[2023-03-12] MEDS: Ferrous Sulfate 325 MG Tablet PO (11:52)
[2023-03-12] MEDS: Potassium Chloride Oral Tablet 20 MEQ PO ×2 (11:52→16:33)
--- NOTE | 2023-03-12 13:21 | DCINST_ITS ---
Discharge Instructions Diet Discharge Diet: Low fat / Low cholesterol and - (nectar thick liquids) Activity Discharge Activity: May Not Drive, May Shower and Use Walker Weight Bearing Status: Full weight bearing Keep extremity elevated above heart level: Legs (Keep your legs elevated anytime you are sitting in a chair to help control swelling. ) Additional Activity Instructions:: Use the incentive spirometer and the PEP inhaler every hour while awake 10 times. Dressing / Incision Call your doctor if you observe: Fever of 101 or Higher, Inability to urinate, Inability to have a bowel movement, Shortness of breath, Dizziness, Fainting spells, Chest pain, Increased palpitations (irregular heartbeat), Calf discomfort and - (Lightheadedness when sitting or standing. Wt increase of 5 lbs in 1 week or less. Burning with urination. STROKE symptoms: facial droop, slurred speech, inability to get words out, weakness on 1 side of the body and not the other, numbness on 1 side of the body and not the other, inability to ma) Follow Up Care Please Follow Up With: Enrique Kennedy MD When: In 7-10 days. You will also need to follow up with Dr. Russ and with a neurologist. Test Results: Test results from this visit will be discussed in further detail at your follow- up appointment, if applicable. Pending Tests Upon Discharge: none Discharge Plan Admission Admit Date/Time: 01/20/23 18:31 Primary Reason for Your Visit: Post stroke debility. Attending Provider: Chantal Caruso Primary Care Provider: Enrique Kennedy Instructions Patient Instructions: Atelectasis, For Caregivers Swallowing ..., Dysphagia Diet- Managing Drinks, Orthostatic Hypotension Additional Instructions / Restrictions: 1. The stroke you had was a hemorrhagic one. This means that a blood vessel burst and you bleed into the brain and the areas around the brain. It is really impossible to tell if the stroke happened first and then you started falling OR if the falling caused the bleeding. You were taking Xarelto which is a anticoagulant. When you fall and hit your head while on Xarelto you are at increased risk of bleeding in the brain. You were passing out when you stood when you first came to rehab and we had to catch you. this was happening because of a condition called orthostatic hypotension. Basically when you stand the blood goes to your feet and takes away blood from the brain and the BP drops and you can get lightheaded or even pass out. You are on some new medications to help keep the BP up when you stand so you do not pass out. Sometimes when you have this condition the BP will be high when laying down but, we must tolerate this to prevent the passing out when you stand. 2. You have a hx of congestive heart failure. This causes swelling in the legs and sometimes causes fluid to accumulate in the lungs. You have some swelling in your legs but, the chest XRAY prior to discharge did not show any fluid in the lungs. It showed atelectasis which is collapse of some of the air sacs, delma at the bases of the lungs, because you are not taking deep breaths. this can lead to shortness of breath and also to pneumonia. I want you to continue using the incentive spirometer and the PEP unit when you go home. Try to do 10 breaths every hour while you are awake BUT, if this is not possible use them both at least 4-5 times a day. We are going to have to live with some swelling in the legs. If I give you enough Lasix (furosemide) to get rid of the swelling in the legs your BP drops severely with standing. I want you to weigh yourself every morning when you are home and keep a record of the weights. Weigh yourself after you urinate and with only your underwear or PJ's on. If you weight increases by 5 lbs or more in a week OR you are getting short of breath call Dr. Russ's office for advice on what to do with the Lasix. Always wear the ANNE hose (white stockings) when you are out of bed. The ANNE hose help to control the swelling. 3. If you are feeling lightheaded do NOT walk unless someone is with you and has a hand on you. 4. We are trying a new medication 1-2 hours prior to going to bed to help cut down on the # of times you have to urinate at night. We are starting with the lowest dose. We will need to check lab in 5-7 days to make sure the sodium is OK. the Home Health people can take your blood so you will not have to come to the hospital. I am going to have the Home Health nurse take your BP once or twice a week for the next 3 weeks lying, sitting and standing.......like we have been doing in the hospital. If you are feeling lightheaded call me and let me know and we can change something.....like skip a day or 2 of Lasix or increase your fluid intake. 5. You are mildly anemic, this means your blood count is low. You have low iron and I have started a iron supplement to help build the blood count back up. Dr. Kennedy may want to recheck the blood count and the iron panel in another month to make sure it is getting better with the iron. 6. Please do not hesitate to call me if ANY questions after you leave. OFFICE: [phone] CELL: [phone] Discharge Orders/Prescriptions Prescriptions: New ferrous sulfate [FeroSul] 325 mg (65 mg iron) Tablet 325 mg PO LUNCH Qty: 90 0RF fludrocortisone 0.1 mg Tablet 0.05 mg PO BREAKFAST Qty: 30 0RF Rx Instructions: one half tablet once daily menthol-zinc oxide [Calmoseptine] 0.44-20.6 % Ointment 1 applic topical BID Qty: 113 0RF Protocol: *Topical Application Instructions APPLICATION INSTRUCTIONS: Buttocks Rx Instructions: apply to the groin, buttocks (diaper area) twice daily to prevent skin break down. mirtazapine 15 mg Tablet 22.5 mg PO 2100 Qty: 45 0RF Rx Instructions: 1 and a half tablets at bedtime potassium, sodium phosphates 280-160-250 mg Powder In Packet 1 packet PO BID Qty: 100 0RF Rx Instructions: 1 pkt twice daily sennosides-docusate sodium [Stool Softener-Stimulant Laxat] 8.6-50 mg Tablet 2 tab PO BID Qty: 120 0RF desmopressin 0.1 mg tablet 0.1 mg PO BID Qty: 30 0RF Rx Instructions: take this medication 1 hour prior to going to bed. aspirin 81 mg capsule 81 mg PO DAILY Qty: 30 0RF furosemide 40 mg tablet 40 mg PO DAILY Qty: 30 0RF midodrine 10 mg tablet 10 mg PO TID Qty: 90 0RF Rx Instructions: do not give last dose of day after 6PM or within 4 hrs of bedtime Continued acetaminophen 500 mg Tablet 1,000 mg PO Q6H PRN PRN (Reason: Pain Score 1-10) Qty: 0 0RF lovastatin 40 mg tablet 40 mg PO QHS Qty: 30 3RF Discontinued metolazone 2.5 mg tablet 2.5 mg PO Mo@0600 potassium chloride [Klor-Con M20] 20 mEq tablet,ER particles/crystals 20 meq PO BIDCM tamsulosin 0.4 mg capsule 0.4 mg PO DAILY@1730 furosemide 40 mg tablet 80 mg PO DAILY Qty: 90 3RF Referrals / Follow Up: Enrique Kennedy MD [Primary Care Provider] - 03/15/23 1:45 pm Jorge Perez MD [Non-Staff] - 04/26/23 4:45 pm (address is [address] [place] [address]) Elena Garcia PA [Med Staff - Adv Practice Prof] - 04/21/23 9:30 am Disposition Disposition (needs filled in before D/C Order can be placed): Home Health Service
[2023-03-12] MEDS: Furosemide 40 MG Tablet 60 MG PO (13:44)
[2023-03-12] MEDS: Albumin Human 25% (100 mL) 25 GM/100 ML BAG IV (15:11)
[2023-03-12] MEDS: 0.9% Saline Lock 10 ML Syringe IV (16:36)
[2023-03-12] MEDS: Furosemide 40 MG/4 ML Vial IV (17:56)
[2023-03-12 19:32] VITALS: BP 121/61; PULSE 60; RESP 19; TEMP 36.6; O2SAT 92
[2023-03-12] MEDS: Mirtazapine 15 MG Tablet 22.5 MG PO (20:39)
[2023-03-12] MEDS: DESMOPRESSIN ACETATE 0.1 MG TABLET PO (20:39)
[2023-03-12] MEDS: Atorvastatin Calcium 10 MG Tablet PO (20:40)
[2023-03-13 06:00] VITALS: BMI 31.1
[2023-03-13 07:18] VITALS: BP 115/53; BP 118/62; BP 91/40; PULSE 69; PULSE 70
[2023-03-13 07:19] VITALS: BP 118/62; PULSE 69; RESP 18; TEMP 36.8; O2SAT 98
[2023-03-13 07:20] LABS: Anion Gap 6 (5-15); BUN 20 mg/dL (7-18); BUN/Creat Ratio 16.3 RATIO (10-20); Chloride 107 mmol/L (98-107); Creatinine, Serum 1.23 mg/dL (0.70-1.30); EST Glomerular Filtration Rate 59 mL/min (>60); Est Glom Filt Rate - Afr Amer 72 mL/min (>60); Estimated Creatinine Clearance 42.48 ml/min; Glucose 93 mg/dL (74-106); Potassium 3.6 mmol/L (3.5-5.1); Sodium Level 143 mmol/L (136-145)
[2023-03-13] MEDS: Na Biphos/Potassium Phosphate PACKET 1 PACKET PO (08:00)
[2023-03-13] MEDS: Midodrine HCl 5 MG Tablet 10 MG PO ×2 (08:00→11:47)
[2023-03-13] MEDS: Fludrocortisone Acetate 0.1 MG Tablet 0.05 MG PO (08:01)
[2023-03-13] MEDS: Ensure Plus High Protein 120 ML LIQUID PO (08:01)
[2023-03-13] MEDS: Senna/Docusate Sodium 1 Tablet 2 TABLET PO (08:01)
[2023-03-13] MEDS: Nystatin/Triamcin Cream Tube 1 APPLIC TOPICAL (08:08)
[2023-03-13] MEDS: Menthol/Lanolin/Calamine/Znox 113 GM Tube 1 APPLIC TOPICAL (08:09)
[2023-03-13] MEDS: Nystatin Powder 15gm Bottle 1 APPLIC TOPICAL (08:10)
--- NOTE | 2023-03-13 10:41 | EX.DISCHREH ---
Providers Date of Admission: 01/20/23 Date of Discharge: 03/13/23 Primary Care Physician: Dr. Enrique Kennedy MD none Reason For Visit: Post Stroke Debility Diagnosis Discharge Diagnosis (1) Debility: Status: Acute Code(s): R53.81 - Other malaise Plan: He is much better than at admission. (2) Hemorrhagic cerebrovascular accident (CVA): Status: Acute Code(s): I61.9 - Nontraumatic intracerebral hemorrhage, unspecified Plan: While on Xarelto. 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 (5) Dysphagia: Status: Acute Code(s): R13.10 - Dysphagia, unspecified Qualifiers: Dysphagia type: oropharyngeal phase Qualified Code(s): R13.12 - Dysphagia, oropharyngeal phase Plan: Will need to continue nectar thick liquids. He had aspiration PNA on thins and was coughing with eating but, delma with drinking. Recent MBS abnormal. Will need continued ST post DC. (6) Hemianopia, homonymous, left: Status: Acute Code(s): H53.462 - Homonymous bilateral field defects, left side (7) Diastolic CHF: Status: Acute Code(s): I50.30 - Unspecified diastolic (congestive) heart failure Qualifiers: Heart failure chronicity: acute Qualified Code(s): I50.31 - Acute diastolic (congestive) heart failure (8) Benign prostatic hyperplasia (BPH) with urinary urgency: Status: Acute Code(s): N40.1 - Benign prostatic hyperplasia with lower urinary tract symptoms; R39.15 - Urgency of urination (9) Orthostatic hypotension: Status: Acute Code(s): I95.1 - Orthostatic hypotension Plan: Continue Midodrine and Florinef. He is still mildly orthostatic at DC but, he is asymptomatic. (10) Chronic kidney disease, stage 3b: Status: Acute Code(s): N18.32 - Chronic kidney disease, stage 3b (11) Atrial fibrillation: Status: Acute Code(s): I48.91 - Unspecified atrial fibrillation Qualifiers: Atrial fibrillation type: paroxysmal Qualified Code(s): I48.0 - Paroxysmal atrial fibrillation (12) Generalized weakness: Status: Acute Code(s): R53.1 - Weakness (13) Urinary incontinence: Status: Acute Code(s): R32 - Unspecified urinary incontinence Qualifiers: Urinary Incontinence type: urge incontinence Qualified Code(s): N39.41 - Urge incontinence Plan 1. DC today to home with family 2. Will try and connect with Dr. Russ about the new diagnosis of severe orthostatic hypotension and midodrine and Florinef. Will also try and connect with Elena Garcia who is going to see in the office next week 3. No Xarelto at [place] - with the falls and syncope at home and the intracerebral hemorrhage/SDH/SAH prior to admission to rehab the risk exceeds benefit of anticoagulation. 4. No Flomax due to severe orthostatic hypotension. 5. Check a BMP in 5-7 days days 6. F/U with Dr. Kennedy, Dr. Russ and with neurology. 7. HHC at [place] for OT/PT/ST and RN. 8. Orthostatic VS's once or twice weekly for the next 3 weeks 9. Will need to monitor for low sodium while on desmopressin and may need to make the Lasix QOD if he starts to get lightheaded. It is quite a challenge to keep the fluid out of the lungs without causing syncope from severe orthostatic hypotension. Recent CXR shows no effusions and no PVC. Coarse crackles in the bases are due to atelectasis. He needs his rest at night and some nights he is up every 1 hour with incontinence or need to urinate. Can not use Flomax due to the orthostatic hypotension. He failed a TCA. Trying Desmopressin. 10. He received albumin and Lasix yesterday afternoon and had multiple episodes of incontinence. I do not believe that he gained a pound since yesterday. BUN and Creat increased with more aggressive diuresis the past few days. Edema in the legs is decreased at [place]. He will continue to wear the TEDS at discharge. Medications at Discharge Home Medications acetaminophen 500 mg tablet 1,000 mg (2 x 500 mg) PO Q6H PRN PRN Pain Score 1-10 #0 tabs 12/29/22 aspirin 81 mg capsule 81 mg PO DAILY #30 caps 03/12/23 desmopressin 0.1 mg tablet 0.1 mg PO BID #30 tabs 03/12/23 ferrous sulfate 325 mg (65 mg iron) tablet (FeroSul) 325 mg PO LUNCH #90 tabs 03/12/23 fludrocortisone 0.1 mg tablet 0.05 mg (1/2 x 0.1 mg) PO BREAKFAST #30 tabs 03/12/23 furosemide 40 mg tablet 40 mg PO DAILY #30 tabs 03/12/23 lovastatin 40 mg tablet 40 mg PO QHS heart disease #30 tabs 03/12/23 menthol 0.44 %-zinc oxide 20.6 % topical ointment (Calmoseptine) 1 applic topical BID #113 grams 03/12/23 midodrine 10 mg tablet 10 mg PO TID #90 tabs 03/12/23 mirtazapine 15 mg tablet 22.5 mg (1.5 x 15 mg) PO 2100 #45 tabs 03/12/23 potassium, sodium phosphates 280 mg-160 mg-250 mg oral powder packet 1 packet PO BID #100 ea 03/12/23 sennosides 8.6 mg-docusate sodium 50 mg tablet (Stool Softener-Stimulant Laxative) 2 tab PO BID #120 tabs 03/12/23 potassium chloride 20 mEq tablet,extended release 20 meq PO BID #60 tabs 03/13/23 Hospital Course Operations None Procedures - (Modified barium swallows 12/24/2022, 02/01/2023 and 03/01/2023. Soft diet and nectar thick liquids were recommended on 03/01/2023.) Summary of Care Provided Minutes Spent on Discharge: 50 Hospital Course: JORGE ALAS, is a 87 YO M with a PMH of PAF, PM implantation, CAD, hx of CABG, diastolic CHF with preserved EF, hypertension, AV florida ablation, chronic anticoagulation with rivaroxaban, isolated elevated bili, BPH, secondary pulmonary hypertension and hyperlipidemia who presented to the ED at [facility] on 01/12/23 c/o generalized weakness. He had fallen at home 5 times. He denied hitting his head. He was having trouble getting around and his family thought he needed more rehab/TCU. He was taking ASA and Xarelto. He had just been discharged from TCU on 12/31/2022 where he was being treated for debility due to streptococcal sepsis. Noncontrast CT brain showed a 1 cm right hemispheric subdural hematoma with subarachnoid hemorrhage. There was also right parietal intraparenchymal hemorrhage as well as right parietal encephalomalacia. There was 2 mm right to left subfalcine herniation and diffuse cerebral edema in the right cerebral hemisphere. He was given Kcentra and transferred to [facility] to be evaluated for possible surgery. At [facility] the CT head was repeated and it showed a right parietal intraparenchymal hemorrhage measuring 3.6 cm (he 3.4 at [facility]), right convexity subdural hematoma of 9 mm (7 mm at [facility]) a trace subarachnoid hemorrhage and intraventricular hemorrhage in the left lateral ventricle and a 5 to 6 mm rightward midline shift. CTA showed no underlying vascular lesion. Aspirin and Xarelto were placed on hold and he was started on Keppra for seizure prophylaxis. Neurosurgery was consulted and did not recommend operative intervention. While in the emergency room at [facility] he was found to have a new oxygen requirement and chest x-ray showed a multifocal pneumonia. He was started on antibiotics. He also required pressor support for low blood pressure. While at [facility] he was seen by PT/OT/ST. He was found to have dysphagia ad was placed on thickened liquids. Therapy recommended acute rehab post DC from [facility]. Leonard was transferred to the acute inpt rehab unit at [facility] on 01/20/23 for 3 hours of therapy daily to restore function/independence to allow him to return home at [place] from rehab. Leonard was extremely weak at admission to rehab. He required assist of 2 to stand and he had a few syncopal episodes while standing. Orthostatics were very + and failed to improve much with hydration. He was started on Midodrine and the dose was gradually increased to 10 mg TID. He continued to have lightheadedness and orthostatics were still positive. He was started on Florinef and although the orthostatics were still mildly + he became asymptomatic. Unfortunately, although he is no longer having syncopal episodes and he is no longer lightheaded, he does have pitting edema of the LE's from the tibial plateaus distally. Edema increases with not elevating his legs. He has no calf pain and he has no orthopnea and no SOB. He initially had ERWIN but, he is now ambulating at a very good pace with a FWW with no complaints of SOB. He has gotten much stronger since admission and his endurance with exercise is also much improved. Leonard has had urinary urgency since admission. He is often incontinent, delma at night. Flomax was discontinued due to severe orthostatic hypotension. He is not retaining urine. UA's were negative for infection. He denies dysuria. We tried tolterodine at at bedtime and this did not help. We then tried a small dose of amitriptyline and he continues to have urinary incontinence several times a night. He was placed on desmopressin 0.1 mg nightly 1 hour before going to bed and we are hopeful this will help. A BMP was ordered for the week after DC to make sure the sodium is staying within normal limits. His sodium is stable at 143 at discharge. BUN is 20 and the creat is 1.23 which is good for him. Hemoglobin is stable at 11.8 at discharge. White blood cell count is normal. Platelets are occasionally mildly decreased and 2 days prior to discharge they were 134. Calcium and magnesium are normal and the phosphorus remains in normal limits since he was placed on a potassium phosphate supplement. K has been stable between 4-4.4. Leonard had 3 modified barium swallows while on rehab. At one point he was approved for thin liquids with small sips but, he had coughing with drinking and he developed aspiration PNA which was treated with 4 days of Zosyn followed by 5 days of Augmentin. A MBS was repeated and he was downgraded to a soft diet with nectar thick liquids. I rarely hear him coughing with drinking now and he does his swallowing exercises as instructed. He will need continued ST post DC. Left visual inattention has significantly improved since his admission and he benefits from use of an anchor line, lighthouse scanning technique and visual blocking to improve accuracy/attention to the left when reading. Orientation and cognitive scores have improved and he has been able to maintain this since admission. He still needs moderate to max cues with recall tasks. Leonard improved significantly in PT/OT. At the time of discharge he is supervision/set up for eating and grooming. He requires only minimal assistance with upper body dressing, lower body dressing and bathing. He is standby assist for toileting and toilet transfer and he is contact-guard assist for tub/shower transfer. He is able to ascend/descend two 6 inch steps with 2 handrails x4 sets at contact-guard assist. He has completed the turn up and go test in less than 20 seconds which will allow him to cross a street in a reasonable amount of time. He can do 9 sit to stands at light standby assist with the use of his upper extremities to push up from a standard chair indicating that his leg strength is much improved. He has ambulated up to 500 feet at close standby assist with a front wheeled walker. Leonard will be going home at [place] and his family is going to provide the support he needs. I am hopeful that the Desmopressin will help with the nocturia/incontinence and his sodium will remain WNL. He is going to have [facility] at [place] for PT/OT/ST/SN/FREITAS/SW. If the nocturia and incontinence is too much for the family at home and he is to remain at home I would consider a Mak. I discussed this with Leonard and his Emmanuelle and they would like to see how things go at home and if it is too much they would consider a Mak catheter rather than going to an ECF. We discussed the risks and benefits of a Mak. Leonard had some skin breakdown on the buttocks at admission to rehab and he is incontinent at night and does not wake up with this. He is at continued risk for skin breakdown in the perineum and buttocks. I told his family to use the Calmoseptine twice a day and to reapply after incontinence when changing him. He is to keep his legs elevated when sitting and wear the ANNE hose anytime he is out of bed. He will weigh himself daily and if his weight increases by 5 or more lbs in a week he will call Dr. Russ or Elena HOFFMAN for advice. The [facility] nurse will check orthostatics twice a week for 3 weeks. If he is getting lightheaded when standing or sitting he will report this to cardiology or myself. BMP, CBC, MAG and phos are ordered for 03/18/23 and [facility] will draw the blood and send results to me and/or Dr. Kennedy. Leonard follow-up appointments with Dr. Enrique Kennedy on 03/15/2023 at 1:45 PM, with DALTON Norton from cardiology on 04/21/2023 at 9:[address] Jorge Perez on 04/26/2023 at 4:45 PM. Leonard or his family have my contact numbers and will call me with any questions following DC. [facility] can call me with any questions or concerns prior to his appt with Dr. Kennedy. Physical Exam Const alert and no apparent distress Constitutional Narrative: Oriented to person, place, month, year and day of the week. Excited about going home. General Appearance: cooperative and well kempt Orientation / Consciousness: Negative for confused HEENT normocephalic, head/scalp atraumatic and moist oral mucous membranes HEENT Narrative: No thrush Eyes PERRL, EOMs intact bilaterally, conjunctivae normal and no scleral icterus Eyes Narrative: No mattering of the eyelashes and no DC from the eyes. General Eye: normal appearance of both eyes Neck No nuchal rigidity, supple, no JVD, No nodes and no carotid bruits General: trachea midline Chest Chest: symmetrical chest wall rise Resp normal respiratory effort and normal air movement Resp Narrative: He has coarse crackles in both bases. No wheezing and no rhonchi. He is not tachypneic and has no labored respirations......even when ambulating quickly. Good air exchange. He admitted to me that he only occasionally uses the IS and PEP. The crackles are more consistent with atelectasis now and not with diastolic CHF. CXR 2 days ago with no effusions, no infiltrates and no PVC. There is some atelectasis in the bases. Effort and Inspection: able to speak in complete sentences; Negative for tachypneic, respiratory distress, labored or uses accessory muscles Auscultation: Negative for rales, rhonchi or wheezes Cardio regular rate, regular rhythm, no murmurs, no rub and no gallops Cardio Narrative: Heart sounds are somewhat distant. GI normal to inspection, nondistended, normoactive bowel sounds, soft to palpation and non-tender GI Narrative: No guarding with palpation Extremity no calf tenderness Extremity Narrative: The edema in the lower extremities is much improved today after Lasix and Albumin IV yesterday. The calves are both soft and there is no pretibial pitting. He has pitting edema only in the ankles only today and it is better than it has been. General Extremity: Negative for clubbing Skin no jaundice General Skin Exam: Negative for no breakdown Rashes: no rashes Wounds: Negative for wounds noted Neuro CN's II-XII intact bilaterally and no sensory deficits noted Neuro Narrative: Ambulating with the WW at a good pace at SBA with no loss of balance. Endurance is increasing. Mild weakness on the R side which is much improved since admission. He does still have some L side neglect.........and sensory extinction. He inconsistently is able to tell me when I am touching both legs and both arms. He sometimes only acknowledges that I am touching the R arm or leg. He is able to do finger nose and heel dominguez. Coordination / Balance: [id number]-pd-[id number] test normal and [id number] test normal Speech: speech normal Motor Exam: general weakness Psych thought process normal, cooperative and affect normal Appearance: appropriate and well kempt Attitude: calm and No agitated Activity / Motor Behavior: appropriate eye contact; Negative for restless Speech: normal speech Mood & Affect: Negative for depressed Thought Content: No suicidality, No homicidality, No delusion(s) and No hallucination(s) Weight / BMI Weight Weight: 205 lb 7.533 oz Body Mass Index (BMI) 31.1 ABG / Lab / Microbiology Data 03/11/23 05:23 03/13/23 06:35 Laboratory: Laboratory Results - last 24 hr 03/13/23 06:35: Sodium 143, Potassium 3.6, Chloride 107, Carbon Dioxide 30.0, Anion Gap 6, BUN 20 H, Creatinine 1.23, Estim Creat Clear Calc 42.48, Est GFR (MDRD) Af Amer 72, Est GFR (MDRD) Non-Af 59 L, BUN/Creatinine Ratio 16.3, Glucose 93, Calcium 9.0 Microbiology: Microbiology 02/26/23 14:00 Sputum, Expectorated/Coughed Gram Stain - Final 02/26/23 14:00 Sputum, Expectorated/Coughed Respiratory Culture - Final 02/26/23 04:53 Mucosa - Nose Respiratory Panel (PCR) - Final 02/26/23 05:51 Urine, Clean Catch Streptococcus pneumoniae Antigen (M - Final 02/25/23 19:00 Nasal Secretion SARS-CoV-2 Antigen (Rapid) - Final 02/12/23 18:30 Urine, Clean Catch Urine Culture - Final Mixed Gram Pos & Gram Neg Org Indicators for Scoring Admitted with or Primary Diagnosis of CVA/Stroke: Yes Hx of CVA/Stroke: Yes Modified Gratis Score MRS Score at time of Evaluation: 3-Moderate disability NIHSS NIHSS 1a. Level of Consciousness: Alert; keenly responsive 1b. LOC Questions: Answers BOTH questions correctly. 1c. LOC Commands: Performs both tasks correctly. 2. Best Gaze: Normal 3. Visual: Partial hemianopia (comes and goes now.........always present at admission. Left lateral gaze is impaired but, not consistently now. ) 4. Facial Palsy: Normal symmetrical movements 5a. Left Arm: No drift; arm holds 90 (or 45) degrees for full 10 seconds 5b. Right Arm: No drift; arm holds 90 (or 45) degrees for full 10 seconds 6a. Left Leg: No drift; leg holds 30-degree position for full 5 seconds 6b. Right Leg: No drift; leg holds 30-degree position for full 5 seconds 7. Limb Ataxia: Absent 8. Sensory: Normal; no sensory loss 9. Best Language: No aphasia; normal 10. Dysarthria: Normal 11. Extinction and Inattention: Visual, tactile, auditory, spatial, or personal inattention (Tactile inattention intermittently of the Left arm and leg. ) Total: 2 Stroke Questions Stroke Team Activated: No D/C Instructions Discharge Diet: Low fat / Low cholesterol and - (nectar thick liquids) Weight Bearing Status: Full weight bearing Keep extremity elevated above heart level: Legs (Keep your legs elevated anytime you are sitting in a chair to help control swelling. ) Additional Activity Instructions: Use the incentive spirometer and the PEP inhaler every hour while awake 10 times. Call your doctor if you observe: Fever of 101 or Higher, Inability to urinate, Inability to have a bowel movement, Shortness of breath, Dizziness, Fainting spells, Chest pain, Increased palpitations (irregular heartbeat), Calf discomfort and - (Lightheadedness when sitting or standing. Wt increase of 5 lbs in 1 week or less. Burning with urination. STROKE symptoms: facial droop, slurred speech, inability to get words out, weakness on 1 side of the body and not the other, numbness on 1 side of the body and not the other, inability to ma) Pending Tests Upon Discharge: none Please Follow Up With: Enrique Kennedy MD When: In 7-10 days. You will also need to follow up with Dr. Russ and with a neurologist. Meaningful Use Info Meaningful Use Diagnoses (Choose all that apply): Hemorrhagic CVA CVA Therapy Assessed for PT,OT and/or ST?: Yes Discharge Plan Admission Admit Date/Time: 01/20/23 18:31 Primary Reason for Your Visit: Post stroke debility. Attending Provider: Chantal Caruso Primary Care Provider: Enrique Kennedy Instructions Patient Instructions: Atelectasis, For Caregivers Swallowing ..., Dysphagia Diet- Managing Drinks, Orthostatic Hypotension Additional Instructions / Restrictions: 1. The stroke you had was a hemorrhagic one. This means that a blood vessel burst and you bleed into the brain and the areas around the brain. It is really impossible to tell if the stroke happened first and then you started falling OR if the falling caused the bleeding. You were taking Xarelto which is a anticoagulant. When you fall and hit your head while on Xarelto you are at increased risk of bleeding in the brain. You were passing out when you stood when you first came to rehab and we had to catch you. this was happening because of a condition called orthostatic hypotension. Basically when you stand the blood goes to your feet and takes away blood from the brain and the BP drops and you can get lightheaded or even pass out. You are on some new medications to help keep the BP up when you stand so you do not pass out. Sometimes when you have this condition the BP will be high when laying down but, we must tolerate this to prevent the passing out when you stand. 2. You have a hx of congestive heart failure. This causes swelling in the legs and sometimes causes fluid to accumulate in the lungs. You have some swelling in your legs but, the chest XRAY prior to discharge did not show any fluid in the lungs. It showed atelectasis which is collapse of some of the air sacs, delma at the bases of the lungs, because you are not taking deep breaths. this can lead to shortness of breath and also to pneumonia. I want you to continue using the incentive spirometer and the PEP unit when you go home. Try to do 10 breaths every hour while you are awake BUT, if this is not possible use them both at least 4-5 times a day. We are going to have to live with some swelling in the legs. If I give you enough Lasix (furosemide) to get rid of the swelling in the legs your BP drops severely with standing. I want you to weigh yourself every morning when you are home and keep a record of the weights. Weigh yourself after you urinate and with only your underwear or PJ's on. If you weight increases by 5 lbs or more in a week OR you are getting short of breath call Dr. Russ's office for advice on what to do with the Lasix. Always wear the ANNE hose (white stockings) when you are out of bed. The ANNE hose help to control the swelling. 3. If you are feeling lightheaded do NOT walk unless someone is with you and has a hand on you. 4. We are trying a new medication 1-2 hours prior to going to bed to help cut down on the # of times you have to urinate at night. We are starting with the lowest dose. We will need to check lab in 5-7 days to make sure the sodium is OK. the Home Health people can take your blood so you will not have to come to the hospital. I am going to have the Home Health nurse take your BP once or twice a week for the next 3 weeks lying, sitting and standing.......like we have been doing in the hospital. If you are feeling lightheaded call me and let me know and we can change something.....like skip a day or 2 of Lasix or increase your fluid intake. 5. You are mildly anemic, this means your blood count is low. You have low iron and I have started a iron supplement to help build the blood count back up. Dr. Kennedy may want to recheck the blood count and the iron panel in another month to make sure it is getting better with the iron. 6. Please do not hesitate to call me if ANY questions after you leave. OFFICE: [phone] CELL: [phone] Discharge Orders/Prescriptions Prescriptions: New ferrous sulfate [FeroSul] 325 mg (65 mg iron) Tablet 325 mg PO LUNCH Qty: 90 0RF fludrocortisone 0.1 mg Tablet 0.05 mg PO BREAKFAST Qty: 30 0RF Rx Instructions: one half tablet once daily menthol-zinc oxide [Calmoseptine] 0.44-20.6 % Ointment 1 applic topical BID Qty: 113 0RF Protocol: *Topical Application Instructions APPLICATION INSTRUCTIONS: Buttocks Rx Instructions: apply to the groin, buttocks (diaper area) twice daily to prevent skin break down. mirtazapine 15 mg Tablet 22.5 mg PO 2100 Qty: 45 0RF Rx Instructions: 1 and a half tablets at bedtime potassium, sodium phosphates 280-160-250 mg Powder In Packet 1 packet PO BID Qty: 100 0RF Rx Instructions: 1 pkt twice daily sennosides-docusate sodium [Stool Softener-Stimulant Laxat] 8.6-50 mg Tablet 2 tab PO BID Qty: 120 0RF desmopressin 0.1 mg tablet 0.1 mg PO BID Qty: 30 0RF Rx Instructions: take this medication 1 hour prior to going to bed. aspirin 81 mg capsule 81 mg PO DAILY Qty: 30 0RF furosemide 40 mg tablet 40 mg PO DAILY Qty: 30 0RF midodrine 10 mg tablet 10 mg PO TID Qty: 90 0RF Rx Instructions: do not give last dose of day after 6PM or within 4 hrs of bedtime potassium chloride 20 mEq tablet extended release 20 meq PO BID Qty: 60 0RF Continued acetaminophen 500 mg Tablet 1,000 mg PO Q6H PRN PRN (Reason: Pain Score 1-10) Qty: 0 0RF lovastatin 40 mg tablet 40 mg PO QHS Qty: 30 3RF Discontinued metolazone 2.5 mg tablet 2.5 mg PO Mo@0600 potassium chloride [Klor-Con M20] 20 mEq tablet,ER particles/crystals 20 meq PO BIDCM tamsulosin 0.4 mg capsule 0.4 mg PO DAILY@1730 furosemide 40 mg tablet 80 mg PO DAILY Qty: 90 3RF Other Ambulatory Orders: Basic Metabolic Profile (BMP) (Routine) Timeframe: 20230318 Facility: [facility] - Location: Laboratory Ordered By: Dr. Chantal Caruso CBC-Complete Blood Cnt No Diff (Routine) Timeframe: 20230318 Facility: [facility] - Location: Laboratory Ordered By: Dr. Chantal Caruso Magnesium (Routine) Timeframe: 20230318 Facility: [facility] - Location: Laboratory Ordered By: Dr. Chantal Caruso Phosphorus (Routine) Timeframe: 20230318 Facility: [facility] - Location: Laboratory Ordered By: Dr. Chantal Caruso Referrals / Follow Up: Enrique Kennedy MD [Primary Care Provider] - 03/15/23 1:45 pm Jorge Perez MD [Non-Staff] - 04/26/23 4:45 pm (address is [address] [place] [address]) Elena Garcia PA [Med Staff - Adv Practice Prof] - 04/21/23 9:30 am Disposition Disposition (needs filled in before D/C Order can be placed): Home Health Service Charges/Coding Visit Charges Inpatient E&M: 91330 Disch Hosp >30min
[2023-03-13] MEDS: Potassium Chloride Oral Tablet 20 MEQ PO (11:46)
[2023-03-13] MEDS: Potassium Chloride Oral Tablet 20 MEQ 40 MEQ PO (11:46)
[2023-03-13] MEDS: Ferrous Sulfate 325 MG Tablet PO (11:47)
[2023-03-13] MEDS: Ascorbic Acid 500 MG Tablet 1000 MG PO (12:14)
[2023-03-13 13:30] VITALS: BP 118/62; PULSE 69; RESP 18; TEMP 36.8; O2SAT 98
--- NOTE | 2023-03-13 13:30 | NURSING ---
Daughter given dc instruct and verbalized understanding. was given the dc instructions yesterday and reported she had read everything. Family aware to call nursing if there are any questions.
== END 2023-03-13 13:30 | disposition home health service (06) | DRG 64 ==
PROVIDERS: Admitting Provider Internal Medicine; PCP Family Medicine; Referring Provider Internal Medicine; Visit Provider Internal Medicine
DX: I62.01 Nontraumatic acute subdural hemorrhage (principal); J69.0 Pneumonitis due to inhalation of food and vomit; G93.6 Cerebral edema; G93.5 Compression of brain; E80.1 Porphyria cutanea tarda; F05 Delirium due to known physiological condition; I13.0 Hypertensive heart and chronic kidney disease with heart failure and stage 1 through stage 4 chronic kidney disease, or unspecified chronic kidney disease; I50.32 Chronic diastolic (congestive) heart failure; E83.39 Other disorders of phosphorus metabolism; I27.21 Secondary pulmonary arterial hypertension; E86.0 Dehydration; I48.0 Paroxysmal atrial fibrillation; I60.9 Nontraumatic subarachnoid hemorrhage, unspecified; N18.32 Chronic kidney disease, stage 3b; I61.1 Nontraumatic intracerebral hemorrhage in hemisphere, cortical; H53.462 Homonymous bilateral field defects, left side; J98.4 Other disorders of lung; G93.89 Other specified disorders of brain; I25.10 Atherosclerotic heart disease of native coronary artery without angina pectoris; D53.9 Nutritional anemia, unspecified; E78.5 Hyperlipidemia, unspecified; N40.1 Benign prostatic hyperplasia with lower urinary tract symptoms; Z79.01 Long term (current) use of anticoagulants; Z79.52 Long term (current) use of systemic steroids; N39.41 Urge incontinence; Y95 Nosocomial condition; R13.10 Dysphagia, unspecified; G47.00 Insomnia, unspecified; Z79.899 Other long term (current) drug therapy; Z95.0 Presence of cardiac pacemaker; Z95.1 Presence of aortocoronary bypass graft; E66.09 Other obesity due to excess calories; Z68.31 Body mass index [BMI] 31.0-31.9, adult; R41.1 Anterograde amnesia
CPT/HCPCS: 36415; 70450; 71046; 74230; 80048; 80053; 81001; 82533; 82607; 82728; 82746; 83540; 83550; 83735; 83880; 84100; 84443; 85014; 85018; 85025; 85027; 86157; 86900; 86901; 87070; 87086; 87088; 87205; 87449; 87633; 87641; 87811; 92507; 92523; 92526; 92610; 92611; 93005; 94668; 94762; 97110; 97112; 97116; 97129; 97130; 97140; 97162; 97166; 97530; 97535; 97802; J7030; J7120; P9047; A4216; J0834; J1940; J3490; P9017

== ENCOUNTER → 2023-03-18 | Outpatient (CLI) | payer MEDICARE, SELFPAY ==
[2023-03-18 09:38] LABS: Hematocrit 39.1 % (40-54); Hemoglobin 12.2 g/dL (13.0-16.5); Mean Corp Hgb Conc 31.2 g/dL (32-36); Mean Corpuscular Hgb 30.2 pg (27.0-32.0); Mean Corpuscular Volume 96.8 fL (80-94); Mean Platelet Vol. 10.1 fl (6.2-12.0); Platelet Count 157 K/mm3 (150-450); RBC Distribution Width SD 53.5 fl (35.1-43.9); Red Blood Count 4.04 M/mm3 (4.6-6.2); White Blood Count 7.1 K/mm3 (4.4-11.0)
[2023-03-18 09:50] LABS: Anion Gap 6 (5-15); BUN 18 mg/dL (7-18); BUN/Creat Ratio 11.5 RATIO (10-20); Calcium,Total 8.9 mg/dL (8.5-10.1); Chloride 109 mmol/L (98-107); Creatinine, Serum 1.56 mg/dL (0.70-1.30); EST Glomerular Filtration Rate 45 mL/min (>60); Est Glom Filt Rate - Afr Amer 55 mL/min (>60); Glucose 95 mg/dL (74-106); Magnesium 2.5 mg/dL (1.6-2.6); Phosphorus 2.8 mg/dL (2.5-4.9); Potassium 3.9 mmol/L (3.5-5.1); Sodium Level 143 mmol/L (136-145)
== END | disposition home or self-care (01) ==
LOC: LABSPEC 09:04
PROVIDERS: PCP Family Medicine; Referring Provider Internal Medicine; Visit Provider Internal Medicine
DX: N18.9 Chronic kidney disease, unspecified (principal); E86.0 Dehydration
CPT/HCPCS: 80048; 83735; 84100; 85027

== ENCOUNTER 2023-05-10 15:40 | Observation (INO) | payer MEDICARE, SELFPAY ==
[2023-05-10 15:41] VITALS: BP 106/59; PULSE 69; RESP 15; TEMP 36.4; O2SAT 98
--- NOTE | 2023-05-10 15:55 | RAD_ITS ---
STUDY: X-RAY CHEST REASON FOR EXAM: Male, 87 years old. WEAKNESS TECHNIQUE: Single frontal view of the chest. COMPARISON: March 11, 2023 FINDINGS: Sternotomy wires. Loop recorder left chest unchanged. The lungs are clear and expanded. There is no demonstrated pleural abnormality. Cardiac megaly. Normal mediastinum and alaina. Normal visualized pulmonary arteries. Normal visualized aortic arch and descending thoracic aorta. Normal visualized thoracic spine. Normal visualized ribs, clavicles, and shoulders. There is no demonstrated abnormality of the visualized soft tissue structures of the upper abdomen. RAD/Chest 1 View (Portable) IMPRESSION: No acute disease Electronically Signed: Demarcus Farrell MD at 16:32 EDT ,
[2023-05-10 16:24] LABS: Absolute Lymphocyte Count 1.87 X10^3/uL (0.83-4.51); Absolute Neutrophil Count 5.5 X10^3/uL (2.0-7.7); Basophil# 0.01 X10^3/uL; Basophil% 0.1 % (0-1); Eosinophil# 0.06 X10^3/uL; Eosinophils% 0.7 % (0-5); Hemoglobin 13.9 g/dL (13.0-16.5); Lymphocyte # 1.87 X10^3/ul (0.83-4.51); Mean Corp Hgb Conc 33.1 g/dL (32-36); Mean Corpuscular Hgb 30.2 pg (27.0-32.0); Mean Corpuscular Volume 91.3 fL (80-94); Mean Platelet Vol. 9.3 fl (6.2-12.0); Monocyte# 0.63 X10^3/uL; Monocyte% 7.7 % (0-10); NRBC Flagged by Analyzer 0 % (0-5); Neutrophil # 5.54 X10^3/uL (2.7-7.7); Neutrophil % 68.3 % (47-70); Platelet Count 147 K/mm3 (150-450); RBC Distribution Width CV 14.6 % (11.6-14.6); RBC Distribution Width SD 48.6 fl (35.1-43.9); White Blood Count 8.1 K/mm3 (4.4-11.0)
[2023-05-10 16:44] LABS: Anion Gap 7 (5-15); BUN 39 mg/dL (7-18); BUN/Creat Ratio 24.8 RATIO (10-20); Calcium,Total 9.4 mg/dL (8.5-10.1); Chloride 107 mmol/L (98-107); Creatinine, Serum 1.57 mg/dL (0.70-1.30); EST Glomerular Filtration Rate 45 mL/min (>60); Est Glom Filt Rate - Afr Amer 54 mL/min (>60); Glucose 108 mg/dL (74-106); Potassium 4.5 mmol/L (3.5-5.1); Sodium Level 140 mmol/L (136-145)
[2023-05-10 18:00] VITALS: BP 127/73; PULSE 71; RESP 20; TEMP 36.7; O2SAT 97; BMI 27.5
--- NOTE | 2023-05-10 18:28 | CT_ITS ---
STUDY: CT BRAIN WITHOUT CONTRAST REASON FOR EXAM: Male, 87 years old. altered mental status RADIATION DOSAGE (If Supplied By Facility): CTDIvol = ( 44.99 ) mGy, DLP = ( 846.73 ) mGycm TECHNIQUE: Transaxial CT imaging of the brain was performed without administration of intravenous contrast material. Individualized dose optimization techniques were used for this CT. COMPARISON: CT brain January 28, 2023 FINDINGS: Normal soft tissue structures. Normal calvarium. There is mild cerebral atrophy with widening of the extra-axial spaces and ventricular dilatation. There are areas of decreased attenuation within the white matter tracts of the supratentorial brain, consistent with microvascular disease changes. New right occipital encephalomalacia. Normal basal ganglia and thalami. Normal brainstem. Normal cerebellum. Previously noted extra-axial hemorrhage on the right has resolved. There are no findings of an acute ischemic infarction. Opacification left maxillary sinus with calcific inspissated secretions centrally. CT/Brain/Head without Contrast IMPRESSION: New Right occipital encephalomalacia. Previously noted subdural hematoma resolved. Otherwise no acute disease. Electronically Signed: Demarcus Farrell MD at 20:19 EDT ,
[2023-05-10 18:30] LABS: Bacteria 0 SEEN /hpf (None Seen); Mucous, Urine 0 SEEN /hpf (<or=2+); Red Blood Cells-Urine 0 SEEN /hpf (0-5)
--- NOTE | 2023-05-10 18:31 | EDS_ITS ---
HPI <YANDEL Willson - Last Filed: 05/10/23 20:19> History of Present Illness Chief Complaint: Weakness Narrative Narrative: Patient is an 87-year-old male with history of CVA, brain bleeding subdural hematoma, who was recently admitted here 3 months ago, patient has been released for 2 months. Per the , the patient is gets around with his walker. Today, the patient cannot stand up, could not move, had difficulty walking, secondary to the not being able to carry him, they are here for evaluation. Patient states that he just feels very weak and cannot do what he normally does. He states that he has no strength in his legs PFS <YANDEL Willson - Last Filed: 05/10/23 20:19> [facility] Medical History (Updated 05/10/23 @ 20:19 by YANDEL Willson) Accelerated junctional rhythm (03/23/21) Atherosclerosis of coronary artery of [place] heart without angina pectoris Atrial fibrillation Bacteremia Benign prostatic hyperplasia (BPH) with urinary urgency Carotid bruit Cellulitis Chronic diastolic heart failure Chronic kidney disease, stage 3b Chronic renal insufficiency Coronary artery disease Essential (primary) hypertension History of complete heart block Hyperbilirubinemia Hyperlipidemia group home current use of anticoagulant Obesity Paroxysmal atrial fibrillation Prostate enlargement 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 Home Medications acetaminophen 500 mg tablet 1,000 mg (2 x 500 mg) PO Q6H PRN PRN Pain Score 1-10 #0 tabs 12/29/22 [Rx Last Taken Unknown] aspirin 81 mg capsule 81 mg PO DAILY #30 caps 03/12/23 [Rx Last Taken Unknown] desmopressin 0.1 mg tablet 0.1 mg PO BID #30 tabs 03/12/23 [Rx Last Taken Unknown] ferrous sulfate 325 mg (65 mg iron) tablet (FeroSul) 325 mg PO LUNCH #90 tabs 03/12/23 [Rx Last Taken Unknown] fludrocortisone 0.1 mg tablet 0.05 mg (1/2 x 0.1 mg) PO BREAKFAST #30 tabs 03/12/23 [Rx Last Taken Unknown] furosemide 40 mg tablet 40 mg PO DAILY #30 tabs 03/12/23 [Rx Last Taken Unknown] lovastatin 40 mg tablet 40 mg PO QHS heart disease #30 tabs 03/12/23 [Rx Last Taken Unknown] menthol 0.44 %-zinc oxide 20.6 % topical ointment (Calmoseptine) 1 applic topical BID #113 grams 03/12/23 [Rx Last Taken Unknown] midodrine 10 mg tablet 10 mg PO TID #90 tabs 03/12/23 [Rx Last Taken Unknown] mirtazapine 15 mg tablet 22.5 mg (1.5 x 15 mg) PO 2100 #45 tabs 03/12/23 [Rx Last Taken Unknown] potassium, sodium phosphates 280 mg-160 mg-250 mg oral powder packet 1 packet PO BID #100 ea 03/12/23 [Rx Last Taken Unknown] sennosides 8.6 mg-docusate sodium 50 mg tablet (Stool Softener-Stimulant Laxative) 2 tab PO BID #120 tabs 03/12/23 [Rx Last Taken Unknown] potassium chloride 20 mEq tablet,extended release 20 meq PO BID #60 tabs 03/13/23 [Rx Last Taken Unknown] Allergy/AdvReac Type Severity Reaction Status Date / Time spironolactone AdvReac Elevated Verified 01/12/23 18:31 Potassium Family History Mother CAD (coronary artery disease) Brother CAD (coronary artery disease) Surgical History H/O coronary artery bypass surgery (09/20/97) History of appendectomy History of cardioversion (08/25/21) History of left heart catheterization (12/12/14) 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 Positive for weakness Eyes: Negative for vision loss, vision change, double vision ENT: Negative for any sore throat, ear pain, congestion Cardiovascular: Negative for any chest pain, tightness, palpitations Respiratory: Negative for any cough, sputum production, hemoptysis, dyspnea, dyspnea on exertion, orthopnea Gastrointestinal: Negative for any abdominal pain, nausea, vomiting, diarrhea, constipation, blood in stool, blood in vomit : Negative for any urinary frequency, dysuria, retention, blood in urine Muscle skeletal: Negative for any muscle joint pain, stiffness, myalgias, arthralgias, neck pain, back pain. Positive for difficulty moving bilateral legs Neurological: Negative for any headache, syncope, numbness or tingling, dizziness Skin: Negative for any rashes, lumps, itching, abrasions, lacerations Psychiatric: Negative for any depression, anxiety, stress, suicidal ideation, homicidal ideation Hematologic: Negative for any easy bruising, excessive bruising, easy bleeding Allergies: Negative for any eczema, hives, rash EXAM <YANDEL Willson - Last Filed: 05/10/23 20:19> Physical Exam Narrative Exam Narrative: Vital signs reviewed. Patient alert and orient x4. HEET: Head normocephalic atraumatic, TMs clear bilaterally. Posterior pharynx is clear, dry mucous membranes. Nares clear bilaterally. Neck: Supple with no lymphadenopathy or tenderness. No signs of meningismus, negative jolt sign. Cardiac: Regular rate and rhythm no murmurs gallops or rubs, equal peripheral pulses bilaterally. Respiratory: Crackles to the right lower lung base. No chest tenderness. Abdomen: Soft, nontender, nondistended. No abdominal bruit or pulsatile masses. No hepatosplenomegaly Extremities: No peripheral edema, no signs of gross trauma or deformity. Active full range of motion of all extremities. Neuro: Cranial nerves II through XII intact, no focal neurological deficits. Skin: Clean dry and intact with no rash, purpura, petechiae, vesicles or pustules. Backs/flank: No CVA tenderness, no midline spinal tenderness, no deformity. Psych: Normal mood and affect. No SI, HI or acute psychosis. Const Vital Signs: 05/10/23 15:41 05/10/23 18:00 05/10/23 18:04 Temperature 97.6 F L 98.1 F Temperature Source Temporal Oral Pulse Rate 69 71 Respiratory Rate 15 20 H Respiratory Effort Normal Non-Labored Respiratory Pattern Normal Blood Pressure 106/59 L 127/73 H Blood Pressure Mean 74 91 Pulse Ox 98 97 Oxygen Delivery Method Room Air Room Air <Dr. Nilo Zarate MD - Last Filed: 05/10/23 21:04> Physical Exam Const Vital Signs: 05/10/23 15:41 05/10/23 18:00 05/10/23 18:04 Temperature 97.6 F L 98.1 F Temperature Source Temporal Oral Pulse Rate 69 71 Respiratory Rate 15 20 H Respiratory Effort Normal Non-Labored Respiratory Pattern Normal Blood Pressure 106/59 L 127/73 H Blood Pressure Mean 74 91 Pulse Ox 98 97 Oxygen Delivery Method Room Air Room Air MDM <YANDEL Willson - Last Filed: 05/10/23 20:19> MDM Lab Data Labs: Laboratory Results - last 24 hr 05/10/23 05/10/23 16:15 18:10 WBC 8.1 RBC 4.60 Hgb 13.9 Hct 42.0 MCV 91.3 MCH 30.2 MCHC 33.1 RDW Std Deviation 48.6 H RDW Coeff of Radha 14.6 Plt Count 147 L MPV 9.3 Immature Gran % (Auto) 0.200 Neut % (Auto) 68.3 Lymph % (Auto) 23.0 [place] % (Auto) 7.7 Eos % (Auto) 0.7 Baso % (Auto) 0.1 Absolute Neuts (auto) 5.5 Absolute Lymphs (auto) 1.87 Nucleated RBC % 0 Sodium 140 Potassium 4.5 Chloride 107 Carbon Dioxide 26.0 Anion Gap 7 BUN 39 H Creatinine 1.57 H Est GFR (MDRD) Af Amer 54 L Est GFR (MDRD) Non-Af 45 L BUN/Creatinine Ratio 24.8 H Glucose 108 H Calcium 9.4 Urine Color Yellow Urine Clarity Clear Urine pH 6.0 Ur Specific Perry 1.015 Urine Protein Negative Urine Glucose (UA) Normal Urine Ketones Negative Urine Occult Blood Negative Urine Nitrite Negative Urine Bilirubin Negative Urine Urobilinogen Normal Ur Leukocyte Esterase 100 H Urine RBC 0 SEEN Urine WBC 5-10 SEEN Ur Squamous Epith Cells 0-5 SEEN Amorphous Sediment 1+ URATE Urine Bacteria 0 SEEN Urine Mucus 0 SEEN Radiography Diagnostic Testing: Clinical Impression(s) from Imaging Studies Chest X-Ray 05/10/23 15:55 IMPRESSION: No acute disease Electronically Signed: Demarcus Farrell MD at 16:32 EDT , Brain CT 05/10/23 18:28 IMPRESSION: New Right occipital encephalomalacia. Previously noted subdural hematoma resolved. Otherwise no acute disease. Electronically Signed: Demarcus Farrell MD at 20:19 EDT , Treatment and Re-Evaluation :: Patient appears to be in no obvious distress, vital signs are stable. Patient presents to the emergency department for weakness that is been ongoing for 1 day as well as urinary frequency. Patient's CBC was unremarkable, patient's chemistries showed renal sufficiency with a creatinine of 1.57, March 18 which was 2 months ago, patient creatinine is 1.56. BUN 39. Patient will receive a urinalysis, CT scan of the brain. This to be concerning for any hematoma, hemorrhagic stroke. Patient's chest x-ray showed no acute disease. Patient's laboratory values showed normal CBC, patient's chemistries show some dehydration with a creatinine of 1.57, BUN of 39. Patient CT scan of the brain shows chronic changes. At this time, secondary the patient's dehydration, weakness, inability to care for himself at home. Do believe the nation needs to be admitted to the hospital for possible placement. I spoke with the hospitalist who is in agreement. Patient stable for admission <Dr. Nilo Zarate MD - Last Filed: 05/10/23 21:04> [facility] Narrative Medical decision making narrative: I have personally performed a face to face assessment of the patient and have reviewed the CLEMENTE Note. I performed a substantive portion of the visit including all aspects of the following. My luevano findings include: History is [87-year-old male with generalized weakness difficulty getting around the home. Prior history of a stroke and a subdural.] Exam is [well-appearing 87-year-old male. Vital signs stable afebrile. HEENT exam unremarkable. Neck nontender. Lungs clear to auscultation. Heart regular rhythm no murmur. Rate about 70. Chest wall and ribs nontender. Abdomen soft nontender. Moving all 4 extremities. Neurologically he is awake and alert. Answering questions and following commands. 3 family members are at bedside.] Medical Decision Making [87-year-old failure to thrive. Labs are basically unremarkable. CAT scan showed old stroke. Patient will be admitted. We have already spoken to the hospitalist.] Other additions or changes: [None] History & Record Review Discussion w/independent historian: Patient and Family Additional record(s) reviewed:: Prior inpatient record, Prior outpatient record, Prior ED visit and Prior labs Lab Data Attestation: I reviewed the patient's lab results. Lab results narrative: CBC showed a white count 8. H&H of 13.9 and 42. Platelets 147. Electrolytes show a gap of 7. BUN and creatinine are 39 and 1.57. History of renal insufficiency. Glucose 108. UA shows no red cells. 5-10 white cells. No bacteria. No nitrites. CAT scan chronic changes. Old stroke. Labs: Laboratory Results - last 24 hr 05/10/23 05/10/23 16:15 18:10 WBC 8.1 RBC 4.60 Hgb 13.9 Hct 42.0 MCV 91.3 MCH 30.2 MCHC 33.1 RDW Std Deviation 48.6 H RDW Coeff of Radha 14.6 Plt Count 147 L MPV 9.3 Immature Gran % (Auto) 0.200 Neut % (Auto) 68.3 Lymph % (Auto) 23.0 [place] % (Auto) 7.7 Eos % (Auto) 0.7 Baso % (Auto) 0.1 Absolute Neuts (auto) 5.5 Absolute Lymphs (auto) 1.87 Nucleated RBC % 0 Sodium 140 Potassium 4.5 Chloride 107 Carbon Dioxide 26.0 Anion Gap 7 BUN 39 H Creatinine 1.57 H Est GFR (MDRD) Af Amer 54 L Est GFR (MDRD) Non-Af 45 L BUN/Creatinine Ratio 24.8 H Glucose 108 H Calcium 9.4 Urine Color Yellow Urine Clarity Clear Urine pH 6.0 Ur Specific [place] 1.015 Urine Protein Negative Urine Glucose (UA) Normal Urine Ketones Negative Urine Occult Blood Negative Urine Nitrite Negative Urine Bilirubin Negative Urine Urobilinogen Normal Ur Leukocyte Esterase 100 H Urine RBC 0 SEEN Urine WBC 5-10 SEEN Ur Squamous Epith Cells 0-5 SEEN Amorphous Sediment 1+ URATE Urine Bacteria 0 SEEN Urine Mucus 0 SEEN Radiography Chest X-Ray - ED: 1 View, Read by ED Physician, Read by Radiologist, Heart, Lungs, Mediastinum, Bony Structures, No Acute Disease and Chronic Changes Diagnostic Testing: Clinical Impression(s) from Imaging Studies Chest X-Ray 05/10/23 15:55 IMPRESSION: No acute disease Electronically Signed: Demarcus Farrell MD at 16:32 EDT , Brain CT 05/10/23 18:28 IMPRESSION: New Right occipital encephalomalacia. Previously noted subdural hematoma resolved. Otherwise no acute disease. Electronically Signed: Demarcus Farrell MD at 20:19 EDT , Chest x-ray, portable, single view shows chronic changes no acute process. Interpreted both by myself and the radiologist. Discharge Plan Dx/Rx/DC Orders Clinical Impression: Acute dehydration, Inability to walk, Adult failure to thrive Disposition Disposition: [facility]
[2023-05-10 18:34] LABS: Color, Urine Yellow (Yellow); Glucose, Dipstick Normal (Normal); Ketone-Dipstick Negative (Negative); Leukocyte Esterase-Dipstick 100 /ul (Negative); Nitrite-Dipstick Negative (Negative); Occult Blood-Urine Negative /ul (Negative); Protein-Dipstick Negative (Negative); Specific Gravity, Urine 1.015 (1.002-1.030); Urine Bilirubin Dipstick Negative (Negative); Urine Clarity Clear (Clear); Urine Urobilinogen Normal (Normal)
[2023-05-10 18:47] LABS: Amorphous Sediment 1+ URATE; Squamous Epithelial Cells - UA 0-5 SEEN /hpf (0-5); White Blood Cells 5-10 SEEN /hpf (0-5)
[2023-05-10] MEDS: 0.9% Normal Saline (500mL Bag) 500 ML 999 ML IV (18:49)
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
[2023-05-10 21:47] VITALS: BP 108/92; PULSE 70; RESP 20; TEMP 36.1; O2SAT 97
[2023-05-10 21:52] VITALS: BP 108/92; PULSE 70; RESP 20; TEMP 36.1; O2SAT 97
[2023-05-10 22:26] VITALS: BMI 27.2
[2023-05-10 22:27] VITALS: BP 139/72; PULSE 71; RESP 16; TEMP 36.4; O2SAT 95
[2023-05-11 00:03] VITALS: BP 128/72; PULSE 70; RESP 16; TEMP 36.3; O2SAT 95
[2023-05-11] MEDS: 0.9% Normal Saline (1000mL) 1,000 ML 50 ML IV ×2 (00:12→20:07)
[2023-05-11] MEDS: Nystatin Powder 15gm Bottle 1 APPLIC TOPICAL ×4 (00:12→20:04)
[2023-05-11] MEDS: Menthol/Lanolin/Calamine/Znox 113 GM Tube 1 APPLIC TOPICAL ×3 (00:12→20:03)
[2023-05-11] MEDS: 0.9% Saline Lock 10 ML Syringe IV (00:12)
[2023-05-11 05:18] LABS: Anion Gap 6 (5-15); BUN 32 mg/dL (7-18); BUN/Creat Ratio 24.8 RATIO (10-20); Calcium,Total 8.9 mg/dL (8.5-10.1); Chloride 111 mmol/L (98-107); Creatinine, Serum 1.29 mg/dL (0.70-1.30); EST Glomerular Filtration Rate 56 mL/min (>60); Est Glom Filt Rate - Afr Amer 68 mL/min (>60); Glucose 90 mg/dL (74-106); Potassium 3.8 mmol/L (3.5-5.1); Sodium Level 143 mmol/L (136-145)
[2023-05-11 05:39] VITALS: BP 133/69; PULSE 74; RESP 16; TEMP 36.4; O2SAT 96
[2023-05-11 08:47] VITALS: BP 122/66; PULSE 71; RESP 16; TEMP 36.3; O2SAT 99
[2023-05-11] MEDS: Flu Vacc QS2023-24(65YR UP)/PF 240 MCG/0.7 ML Syringe IM (10:07)
--- NOTE | 2023-05-11 10:44 | CASEMGMT ---
Social Work SW met with patient and patient's and introduced self and role as [facility] SW. Patient agreeable to speak with SW with his present. SW engaged patient in conversation to complete SDoH. Patient and his have been living in their home for 59 years and have no concerns. Patient's reports patient's daughter assists with grocery shopping and they private pay once a month for someone to clean their home. Patient's family also assists with transportation needs and report no concerns regarding their assistance. Patient and patient's report no current needs nor needs for additional resources. Patient's reports their family assists with patient's care as well as a family friend who is a retired nurse. SW/ RN CM to follow along for additional d/c needs. Janis GRANADOS, ANNEMARIE
[2023-05-11 11:30] VITALS: BP 133/69; PULSE 76; RESP 16; TEMP 36.3; O2SAT 94
--- NOTE | 2023-05-11 12:29 | PN_ITS ---
Subjective Subjective Patient seen and examined. He was admitted yesterday with a complaint of weakness which had been gradually worsening, to the point where he couldnt do much for himself at home the day before admission. He denies any fever, chills, cough, chest pain, palpitations, dizziness, nausea, vomiting or any other symptoms. Review of systems is otherwise negative. , sister and brother in law were present during review. Objective Data Objective Data Vital Signs: Vital Signs Temp Pulse Resp BP Pulse Ox O2 Del Method 97.4 F L 76 16 133/69 H 94 Room Air 05/11/23 11:30 05/11/23 11:30 05/11/23 11:30 05/11/23 11:30 05/11/23 11:30 05/11/23 11:30 Oxygen Delivery Method Room Air Weight: 179 lb 0.246 oz Body Mass Index (BMI) 27.2 Intake & Output: Intake and Output for Last 24 Hours 05/09/23 05/10/23 05/11/23 23:59 23:59 23:59 Intake Total 500 / 500 Output Total 600 / 600 Balance 500 / 500 -600 / -600 Lab / Micro Data 05/10/23 16:15 05/11/23 04:40 Labs: Laboratory Results - last 24 hr 05/10/23 16:15: WBC 8.1, RBC 4.60, Hgb 13.9, Hct 42.0, MCV 91.3, MCH 30.2, MCHC 33.1, RDW Std Deviation 48.6 H, RDW Coeff of Radha 14.6, Plt Count 147 L, MPV 9.3, Immature Gran % (Auto) 0.200, Neut % (Auto) 68.3, Lymph % (Auto) 23.0, [place] % (Auto) 7.7, Eos % (Auto) 0.7, Baso % (Auto) 0.1, Absolute Neuts (auto) 5.5, Absolute Lymphs (auto) 1.87, Nucleated RBC % 0, Sodium 140, Potassium 4.5, Chloride 107, Carbon Dioxide 26.0, Anion Gap 7, BUN 39 H, Creatinine 1.57 H, Est GFR (MDRD) Af Amer 54 L, Est GFR (MDRD) Non-Af 45 L, BUN/Creatinine Ratio 24.8 H , Glucose 108 H, Calcium 9.4 05/10/23 18:10: Urine Color Yellow, Urine Clarity Clear, Urine pH 6.0, Ur Specific [place] 1.015, Urine Protein Negative, Urine Glucose (UA) Normal, Urine Ketones Negative, Urine Occult Blood Negative, Urine Nitrite Negative, Urine Bilirubin Negative, Urine Urobilinogen Normal, Ur Leukocyte Esterase 100 H, Urine RBC 0 SEEN, Urine WBC 5-10 SEEN, Ur Squamous Epith Cells 0-5 SEEN, Amorphous Sediment 1+ URATE, Urine Bacteria 0 SEEN, Urine Mucus 0 SEEN 05/11/23 04:40: Sodium 143, Potassium 3.8, Chloride 111 H, Carbon Dioxide 26.0, Anion Gap 6, BUN 32 H, Creatinine 1.29, Estim Creat Clear Calc 40.50, Est GFR (MDRD) Af Amer 68, Est GFR (MDRD) Non-Af 56 L, BUN/Creatinine Ratio 24.8 H, Glucose 90, Calcium 8.9 Micro: Microbiology 05/10/23 18:49 Nasal Secretion SARS-CoV-2 & FLU Antigen (Rapid) - Final Radiography Diagnostic Testing: Radiology Impression Chest X-Ray 05/10/23 15:55 IMPRESSION: No acute disease Electronically Signed: Demarcus Farrell MD at 16:32 EDT Reading Location ID and State: [address] [place] [address] Tel , Service support , Brain CT 05/10/23 18:28 IMPRESSION: New Right occipital encephalomalacia. Previously noted subdural hematoma resolved. Otherwise no acute disease. Electronically Signed: Demarcus Farrell MD at 20:19 EDT Reading Location ID and State: [facility] / [place] Tel , Service support , Physical Exam Const alert, oriented x3 and no apparent distress Constitutional Narrative: frail General Appearance: cooperative and well developed HEENT normocephalic Mouth: dry mucous membranes Eyes PERRL and EOMs intact bilaterally Neck no JVD Lymph Lymphatic: no lymphadenopathy noted Resp normal respiratory effort, normal air movement and clear to auscultation bilater ally Cardio regular rate, regular rhythm, S1 normal heart sound, S2 normal heart sound and no murmurs GI normal to inspection, nondistended, normoactive bowel sounds, soft to palpation, non-tender and non-distended Extremity normal capillary refill, no clubbing, cyanosis or edema and no calf tenderness General Extremity: no tenderness to palpation of joints or extremities Skin General Skin Exam: no breakdown Neuro CN's II-XII intact bilaterally, no focal motor deficits, no sensory deficits noted and deep tendon reflexes 2+ bilaterally Motor Exam: strength 5/5 throughout Psych thought process normal, cooperative and affect normal Appearance: appropriate Assessment & Plan Assessment/Plan (1) Adult failure to thrive: (2) Acute dehydration: PLAN: Plan #Debility and failure to thrive * Patient was recently in a rehab facility and states he went home. Having rehab. He was able to carry out his activities of daily living until he finished with rehab a few weeks ago. Since then he has gradually gone downhill and has been getting weaker and weaker. * PT OT consulted. Fall precautions. Patient counseled that he would need intensive rehab prior to him going home he is on board with this. * #Dehydration * Due to decreased intake. Patient has been put on a pur?ed diet with fluids thickened. He states he does not enjoy the thickening agent and so does not drink as much fluid as he should. * Creatinine was elevated around 1.57 when he came in but has trended down to 1.29 with hydration. * encourage oral hydration * #Afib; not on any meds in the EMR. Not on any anticoagulants due to history of subarachnoid and subdural hemorrhage as well as intraparenchymal brain bleed holding Xarelto. #History of HFpEF; on lasix 40mg daily. #History of orthostatic hypotension: on fludrocortisone and #Hyperlipidemia; on statin #BPH: has frequent nocturia. Says he used to see a urologist, but didnt like the results of his treatment, so stopped following up with urology. Charges/Coding Visit Charges Inpatient E&M: 36509 Subs Hosp L2
--- NOTE | 2023-05-11 12:40 | CASEMGMT ---
JOSEFINA KAY Assessment: Face to Face with pt for initial transition planning/care coordination assessment. JOSEFINA KAY introduced self and role at [facility], pt voices understanding and consents to assessment. Pt is A&O x4 and answers all questions appropriately at this time. Pt sitting up in chair in no distress with and brother present in room. Care providers, pharmacy, and demographics verified/updated. Admitting Dx: generalized weakness PCP:[facility] Specialists:Jeb, cardio; Hu nephro Preferred Pharmacy: [facility] Insurance: [facility] Prescription Benefit: no DPOA: Emmanuelle Arevalo, LNOK: Emmanuelle Arevalo, ; Sylvia Aparicio, dtr Living Arrangements: Pt lives with in a single story home with 3 steps to enter through the garage with a rail on both sides. Pt reports prior to hospitalization pt was able to bathe and dress self with some assistance from . Pt reports provides meals and does laundry. Pt dtr obtains groceries. Pt reports yesterday he was unable to get out of the chair or walk. Transportation: Pt does not drive and drives very little. Family provide transportation. DME:shower seat, FWW at top of garage steps and rollator at bottom, high rise toilet with handles HHC/SNF: Pt reports just finishing with [facility] HHC approx 1 month ago. Pt has also been to the Rehab Unit and TCU at [facility]. Pt just finished with therapy, he states it took 2 people to assist him to chair. Pt is agreeable to receiving therapy prior to going home. Pt is open to either the rehab unit or TCU. Pt states she had to pay upfront the cost of TCU then was reimbursed. Pt and spouse aware that the SW will be in to discuss therapy plans with them. Pt states no further concerns/needs. CM to follow. Advised pt to ask CM if any further question/concerns/needs arise, voices understanding. Pt Goal: [facility] Rehab or TCU Plan: SNF
--- NOTE | 2023-05-11 13:37 | CASEMGMT ---
Social Work SW informed by RN RAHUL patient and family are interested in referral to [facility] or TCU, however, family is concerned regarding having to pay up front as they did previously. SW reviewed case with RU/TCU admin staff, Qian reporting patient would be appropriate for TCU. Qian will start precert in the morning but patient should not need to pay that copay this time as there has been some insurance policy changes with patient's insurance. SW met with patient and patient's family and engaged them in conversation regarding discharge plan. Patient and patient's agreeable to a referral to TCU. SW discussed referral process and explained TCU admin staff report they would not need to pay a copay as they did previously. Patient and family voiced understanding. Plan: accepted to TCU pending precert Janis GRANADOS, ANNEMARIE
[2023-05-11] MEDS: Fludrocortisone Acetate 0.1 MG Tablet 0.05 MG PO (14:19)
[2023-05-11] MEDS: Aspirin 81 MG TAB.CHEW PO (14:19)
[2023-05-11] MEDS: DESMOPRESSIN ACETATE 0.1 MG TABLET PO ×2 (14:20→20:04)
[2023-05-11] MEDS: Potassium Chloride Oral Tablet 20 MEQ PO (14:20)
[2023-05-11] MEDS: Furosemide 40 MG Tablet PO (14:20)
[2023-05-11] MEDS: Na Biphos/Potassium Phosphate PACKET 1 PACKET PO (14:20)
[2023-05-11] MEDS: Ferrous Sulfate 325 MG Tablet PO (14:21)
[2023-05-11] MEDS: Senna/Docusate Sodium 1 Tablet 2 TABLET PO ×2 (14:21→20:05)
[2023-05-11] MEDS: Midodrine HCl 5 MG Tablet 10 MG PO ×2 (14:21→20:04)
[2023-05-11 15:56] VITALS: BP 118/68; PULSE 70; RESP 16; TEMP 36.4; O2SAT 98
[2023-05-11 20:00] VITALS: BP 97/49; PULSE 70; RESP 16; TEMP 36.3; O2SAT 97
[2023-05-11] MEDS: Mirtazapine 15 MG Tablet 22.5 MG PO (20:03)
[2023-05-11] MEDS: Atorvastatin Calcium 10 MG Tablet PO (20:04)
[2023-05-12 03:00] VITALS: BP 135/81; PULSE 100; RESP 16; TEMP 36.7; O2SAT 95
[2023-05-12] MEDS: Nystatin Powder 15gm Bottle 1 APPLIC TOPICAL ×2 (06:20→12:39)
[2023-05-12] MEDS: Midodrine HCl 5 MG Tablet 10 MG PO ×2 (06:20→12:39)
[2023-05-12 08:49] LABS: Absolute Lymphocyte Count 0.63 X10^3/uL (0.83-4.51); Absolute Neutrophil Count 5.2 X10^3/uL (2.0-7.7); Basophil# 0.01 X10^3/uL; Basophil% 0.2 % (0-1); Eosinophil# 0.04 X10^3/uL; Eosinophils% 0.6 % (0-5); Hematocrit 41.5 % (40-54); Hemoglobin 13.8 g/dL (13.0-16.5); Lymphocyte # 0.63 X10^3/ul (0.83-4.51); Mean Corp Hgb Conc 33.3 g/dL (32-36); Mean Corpuscular Hgb 30.4 pg (27.0-32.0); Mean Corpuscular Volume 91.4 fL (80-94); Mean Platelet Vol. 9.2 fl (6.2-12.0); Monocyte# 0.45 X10^3/uL; Monocyte% 7.1 % (0-10); NRBC Flagged by Analyzer 0 % (0-5); Neutrophil # 5.17 X10^3/uL (2.7-7.7); Neutrophil % 81.9 % (47-70); Platelet Count 125 K/mm3 (150-450); RBC Distribution Width CV 14.7 % (11.6-14.6); RBC Distribution Width SD 49.3 fl (35.1-43.9); Red Blood Count 4.54 M/mm3 (4.6-6.2); White Blood Count 6.3 K/mm3 (4.4-11.0)
[2023-05-12 09:00] VITALS: BP 107/63; PULSE 72; RESP 18; TEMP 36.4; O2SAT 98
[2023-05-12 09:06] LABS: Anion Gap 6 (5-15); BUN 25 mg/dL (7-18); Calcium,Total 8.6 mg/dL (8.5-10.1); Chloride 113 mmol/L (98-107); Creatinine, Serum 1.25 mg/dL (0.70-1.30); EST Glomerular Filtration Rate 58 mL/min (>60); Est Glom Filt Rate - Afr Amer 70 mL/min (>60); Glucose 106 mg/dL (74-106); Potassium 3.6 mmol/L (3.5-5.1); Sodium Level 144 mmol/L (136-145)
[2023-05-12] MEDS: Na Biphos/Potassium Phosphate PACKET 1 PACKET PO (09:39)
[2023-05-12] MEDS: DESMOPRESSIN ACETATE 0.1 MG TABLET PO (09:39)
[2023-05-12] MEDS: Potassium Chloride Oral Tablet 20 MEQ PO (09:39)
[2023-05-12] MEDS: Furosemide 40 MG Tablet PO (09:40)
[2023-05-12] MEDS: Senna/Docusate Sodium 1 Tablet 2 TABLET PO (09:40)
[2023-05-12] MEDS: Fludrocortisone Acetate 0.1 MG Tablet 0.05 MG PO (09:41)
[2023-05-12] MEDS: Menthol/Lanolin/Calamine/Znox 113 GM Tube 1 APPLIC TOPICAL (09:41)
[2023-05-12] MEDS: Aspirin 81 MG TAB.CHEW PO (09:41)
--- NOTE | 2023-05-12 12:11 | PCM.PROGNOTE ---
Subjective Subjective Patient seen and examined, Objective Data Objective Data Vital Signs: Vital Signs Temp Pulse Resp BP Pulse Ox O2 Del Method 97.6 F L 72 18 107/63 98 Room Air 05/12/23 09:00 05/12/23 09:00 05/12/23 09:00 05/12/23 09:00 05/12/23 09:00 05/12/23 09:00 Oxygen Delivery Method Room Air Weight: 179 lb 0.246 oz Body Mass Index (BMI) 27.2 Intake & Output: Intake and Output for Last 24 Hours 05/10/23 05/11/23 05/12/23 23:59 23:59 23:59 Intake Total 500 / 500 1195.83 / 1395.83 550 / 550 Output Total 850 / 1200 975 / 975 Balance 500 / 500 345.83 / 195.83 -425 / -425 Lab / Micro Data 05/12/23 08:23 05/12/23 08:23 Labs: Laboratory Results - last 24 hr 05/12/23 08:23: WBC 6.3, RBC 4.54 L, Hgb 13.8, Hct 41.5, MCV 91.4, MCH 30.4, MCHC 33.3, RDW Std Deviation 49.3 H, RDW Coeff of Radha 14.7 H, Plt Count 125 L, MPV 9.2, Immature Gran % (Auto) 0.200, Neut % (Auto) 81.9 H, Lymph % (Auto) 10.0 L, [place] % (Auto) 7.1, Eos % (Auto) 0.6, Baso % (Auto) 0.2, Absolute Neuts (auto) 5.2, Absolute Lymphs (auto) 0.63 L, Nucleated RBC % 0, Sodium 144, Potassium 3.6, Chloride 113 H, Carbon Dioxide 25.0, Anion Gap 6, BUN 25 H, Creatinine 1.25, Estim Creat Clear Calc 41.80, Est GFR (MDRD) Af Amer 70, Est GFR (MDRD) Non-Af 58 L, BUN/Creatinine Ratio 20.0, Glucose 106, Calcium 8.6 Micro: Microbiology 05/10/23 18:49 Nasal Secretion SARS-CoV-2 & FLU Antigen (Rapid) - Final
[2023-05-12] MEDS: Ferrous Sulfate 325 MG Tablet PO (12:39)
--- NOTE | 2023-05-12 12:43 | TREXTCAR_ITS ---
Diet Diet Order/Speech Therapy: 05/11/23 14:35 Diet: Regular - General Food consistency:: Soft & Bite Sized Liquid Consistency:: Tool/Mildly Thick Is pt able to select menu?: Yes Diet Comments: Will reassess after repeat MBSS Routine Orders/Code Status Enema Type: Fleetz Enema Frequency: Daily PRN Suppository Type: Dulcolax 10mg Suppository Frequency: Daily PRN O2 Frequency: PRN Keep PO Greater than or Equal to (%): 90 Therapies Weight Bearing: Weight bearing as tolerated Physical Therapy: Eval and Treat Occupational Therapy: Eval and Treat Problem/Diagnosis (1) Adult failure to thrive: Status: Acute Code(s): R62.7 - Adult failure to thrive (2) Acute dehydration: Status: Acute Code(s): E86.0 - Dehydration Plan #Debility and failure to thrive * Patient was recently in a rehab facility and states he went home. Having rehab. He was able to carry out his activities of daily living until he finished with rehab a few weeks ago. Since then he has gradually gone downhill and has been getting weaker and weaker. * PT OT consulted. Fall precautions. Patient counseled that he would need intensive rehab prior to him going home he is on board with this. * #Dehydration * Due to decreased intake. Patient has been put on a pur?ed diet with fluids thickened. He states he does not enjoy the thickening agent and so does not drink as much fluid as he should. * Creatinine was elevated around 1.57 when he came in but has trended down to 1.29 with hydration. * encourage oral hydration * #Afib; not on any meds in the EMR. Not on any anticoagulants due to history of subarachnoid and subdural hemorrhage as well as intraparenchymal brain bleed holding Xarelto. #History of HFpEF; on lasix 40mg daily. #History of orthostatic hypotension: on fludrocortisone and #Hyperlipidemia; on statin #BPH: has frequent nocturia. Says he used to see a urologist, but didnt like the results of his treatment, so stopped following up with urology. Allergies/Procedures Done in Hospital Allergies No Known Allergies Allergy (Verified 05/10/23 21:51) Procedures: None Type of Care/Length of Stay Estimated LOS: Convalescent Care Less Than 30 days Type of Care Needed: Skilled Rehab Potential: Fair Prognosis: Fair Additional Orders/Day of Discharge Day of Discharge: 05/12/23 Dietary and Speech Recommendations Dietitian Recommendations/Changes: ADAT to Cardiac diet with texture/consistency per [employer] to manage medical conditions. Discharge Plan Admission Admit Date/Time: 05/10/23 20:30 Primary Reason for Your Visit: debility and weakness Attending Provider: Brandee Finley Primary Care Provider: Enrique Kennedy Consulting Providers: Javier Chavis Instructions Patient Instructions: ED Weakness (Uncertain Cause) Discharge Orders/Prescriptions Prescriptions: Continued acetaminophen 500 mg Tablet 1,000 mg PO Q6H PRN PRN (Reason: Pain Score 1-10) Qty: 0 0RF aspirin 81 mg capsule 81 mg PO DAILY Qty: 30 0RF furosemide 40 mg tablet 40 mg PO DAILY Qty: 30 0RF lovastatin 40 mg tablet 40 mg PO QHS Qty: 30 3RF potassium chloride 20 mEq tablet extended release 20 meq PO BID Qty: 60 0RF Referrals / Follow Up: Enrique Kennedy MD [Primary Care Provider] - Within 2 Weeks Disposition Disposition (needs filled in before D/C Order can be placed): [facility]
--- NOTE | 2023-05-12 12:44 | PCM.DC.SUM ---
Providers Date of Admission: 05/10/23 Date of Discharge: 05/12/23 Primary Care Physician: Dr. Enrique Kennedy MD Reason For Visit: GENERALIZED WEAKNKESS Diagnosis Discharge Diagnosis (1) Adult failure to thrive: Status: Acute Code(s): R62.7 - Adult failure to thrive (2) Acute dehydration: Status: Acute Code(s): E86.0 - Dehydration Plan #Debility and failure to thrive Patient was recently in a rehab facility and states he went home. Having rehab. He was able to carry out his activities of daily living until he finished with rehab a few weeks ago. Since then he has gradually gone downhill and has been getting weaker and weaker. PT OT consulted. Fall precautions. Patient counseled that he would need intensive rehab prior to him going home he is on board with this. #Dehydration Due to decreased intake. Patient has been put on a pur?ed diet with fluids thickened. He states he does not enjoy the thickening agent and so does not drink as much fluid as he should. Creatinine was elevated around 1.57 when he came in but has trended down to 1.29 with hydration. encourage oral hydration #Afib; not on any meds in the EMR. Not on any anticoagulants due to history of subarachnoid and subdural hemorrhage as well as intraparenchymal brain bleed holding Xarelto. #History of HFpEF; on lasix 40mg daily. #History of orthostatic hypotension: on fludrocortisone and #Hyperlipidemia; on statin #BPH: has frequent nocturia. Says he used to see a urologist, but didnt like the results of his treatment, so stopped following up with urology. Medications at Discharge Home Medications acetaminophen 500 mg tablet 1,000 mg (2 x 500 mg) PO Q6H PRN PRN Pain Score 1-10 #0 tabs 12/29/22 aspirin 81 mg capsule 81 mg PO DAILY heart #30 caps 03/12/23 furosemide 40 mg tablet 40 mg PO DAILY waterpill #30 tabs 03/12/23 lovastatin 40 mg tablet 40 mg PO QHS heart disease #30 tabs 03/12/23 potassium chloride 20 mEq tablet,extended release 20 meq PO BID replacement #60 tabs 03/13/23 Hospital Course Operations None Procedures None Summary of Care Provided Minutes Spent on Discharge: 45 Hospital Course: Patient is an 87-year-old male with past medical history as outlined was admitted through the ED on 05/10/2023 with a complaint of generalized weakness. Patient has a significant past medical history as outlined and was admitted with a complaint of generalized weakness which had been worsening. He had been admitted about 3 months prior to this admission for stroke and subdural hematoma and subsequently was sent to rehab facility. He subsequently went home from the rehab facility and had been having intensive therapy at home. Patient and his said that therapy had signed off about a week ago and after they signed off, patient had gradually started getting weak. His weakness worsened until he could not perform his activities of daily living. He had also not been drinking fluids because he was on a thickened diet and did not like the taste of it and so had not been drinking much. On admission in the ED CT of the brain was negative. Work-up was also otherwise unremarkable apart from mildly elevated creatinine which was thought to be due to his dehydration from decreased intake. He was admitted} for debility and weakness as well as dehydration due to decreased intake. He was hydrated with IV fluids. Speech therapy reviewed him and still recommended that he be on the thickened liquid diet. Patient was amenable to going to a assisted facility after PT OT worked with him. He was discharged to the TCU on 05/12/2023. He is follow-up with his primary care doctor within 1 to 2 weeks. Patient seen and examined prior to discharge. He had had a bit of confusion overnight and this was likely due to hospital-acquired delirium. Patient's room was quite dark as well he had a single window and the blinds were more than shelter down. Patient was therefore confused about the 19-day cycle which was contributing to his confusion. He was alert and oriented x3 at time of my review. Labs and vitals reviewed. Medication reviewed and reconciled. Physical Exam Const alert, oriented x3 and no apparent distress Constitutional Narrative: frail General Appearance: cooperative, comfortable, well kempt, well developed and in distress Orientation / Consciousness: awake and lethargic Exam Limitations: no limitations HEENT normocephalic, head/scalp atraumatic, hearing grossly normal bilaterally and moist oral mucous membranes Mouth: oral and palatal mucosa normal Eyes PERRL and EOMs intact bilaterally Neck no lymphadenopathy, supple and no JVD Lymph Lymphatic: no lymphadenopathy noted Resp normal respiratory effort, normal air movement and clear to auscultation bilaterally Cardio regular rate, regular rhythm, S1 normal heart sound, S2 normal heart sound and no murmurs GI normal to inspection, nondistended, normoactive bowel sounds, soft to palpation, non-tender and non-distended Extremity normal to inspection, full ROM, normal capillary refill, no clubbing, cyanosis or edema and no calf tenderness General Extremity: no tenderness to palpation of joints or extremities; Negative for edema Skin General Skin Exam: no breakdown Neuro oriented x3, CN's II-XII intact bilaterally, moves all extremities, no focal motor deficits, no sensory deficits noted and deep tendon reflexes 2+ bilaterally Neuro Narrative: frail Sensorium / Orientation: awake Psych thought process normal, cooperative and affect normal Appearance: appropriate Weight / BMI Weight Weight: 179 lb 0.246 oz Body Mass Index (BMI) 27.2 ABG / Lab / Microbiology Data 05/12/23 08:23 05/12/23 08:23 Laboratory: Laboratory Results - last 24 hr 05/12/23 08:23: WBC 6.3, RBC 4.54 L, Hgb 13.8, Hct 41.5, MCV 91.4, MCH 30.4, MCHC 33.3, RDW Std Deviation 49.3 H, RDW Coeff of Radha 14.7 H, Plt Count 125 L, MPV 9.2, Immature Gran % (Auto) 0.200, Neut % (Auto) 81.9 H, Lymph % (Auto) 10.0 L, [place] % (Auto) 7.1, Eos % (Auto) 0.6, Baso % (Auto) 0.2, Absolute Neuts (auto) 5.2, Absolute Lymphs (auto) 0.63 L, Nucleated RBC % 0, Sodium 144, Potassium 3.6, Chloride 113 H, Carbon Dioxide 25.0, Anion Gap 6, BUN 25 H, Creatinine 1.25, Estim Creat Clear Calc 41.80, Est GFR (MDRD) Af Amer 70, Est GFR (MDRD) Non-Af 58 L, BUN/Creatinine Ratio 20.0, Glucose 106, Calcium 8.6 Microbiology: Microbiology 05/10/23 18:49 Nasal Secretion SARS-CoV-2 & FLU Antigen (Rapid) - Final D/C Instructions Discharge Diet: No restrictions Discharge Activity: Return to Normal Activity Weight Bearing Status: Weight bearing as tolerated Call your doctor if you observe: Fever of 101 or Higher, Shortness of breath, Dizziness, Swelling in the ankles and Chest pain Meaningful Use Info Meaningful Use Diagnoses (Choose all that apply): None applicable Discharge Plan Admission Admit Date/Time: 05/10/23 20:30 Primary Reason for Your Visit: debility and weakness Attending Provider: Brandee Finley Primary Care Provider: Enrique Kennedy Consulting Providers: Javier Chavis Instructions Patient Instructions: ED Weakness (Uncertain Cause) Discharge Orders/Prescriptions Prescriptions: Continued acetaminophen 500 mg Tablet 1,000 mg PO Q6H PRN PRN (Reason: Pain Score 1-10) Qty: 0 0RF aspirin 81 mg capsule 81 mg PO DAILY Qty: 30 0RF furosemide 40 mg tablet 40 mg PO DAILY Qty: 30 0RF lovastatin 40 mg tablet 40 mg PO QHS Qty: 30 3RF potassium chloride 20 mEq tablet extended release 20 meq PO BID Qty: 60 0RF Referrals / Follow Up: Enrique Kennedy MD [Primary Care Provider] - Within 2 Weeks Disposition Disposition (needs filled in before D/C Order can be placed): Long Term Facility Charges/Coding Visit Charges Inpatient E&M: 53842 Disch Hosp >30min
--- NOTE | 2023-05-12 13:54 | ST.MBS ---
Modified Barium Swallow Patient Information Study Date: 05/12/23 Study Time: 13:00 Direct Billable Minutes: 116 Total Minutes procedure & reportin Diagnosis: Acute dehydration (E86.0), Dysphagia (R13.10) Referring Physician: Brandee Finley Reason for Referral: Objectively assess swallow function, assess risk for aspiration, and determine recommendations for least restrictive diet textures and compensatory strategies to improve safety of swallow. Medical History: PMH: Hemorrhagic CVA, dysphagia, L sided neglect, chronic renal failure, generalized weakness (SEE EMR for full PMH). The patient presented to [facility] ED 05/10/2023 with generalized weakness. He was admitted for management of adult FTT and acute dehydration. He has a history of dysphagia s/p CVA with 3 previous MBSS this year. Most recent MBSS 03/01/2023 and recommended downgrade from Thin Liquids / Soft and Bite Size Textures to [place]-thick Liquids / Soft and Bite Size Textures with Compensatory Strategies: Small Bites, Small Sips, No Straws, Slow Rate, Multiple Swallows and Sitting upright, and Supervision: Distant Supervision. At the time, patient had worsening respiratory status and RN concerns for aspiration. Per patient he had HH ST who did attempt to implement [place] Free Water Protocol (FFWP) to promote improved hydration; however, the patient admitted to poor follow through with the water protocol. Current Diet Ordered: Soft & bite size / nectar(mildly) thick Dentition: WNL Mental Status: WNL Respiratory Status: Oxygenating on Room Air Penetration-Aspiration Scale Penetration-Aspiration Scale: OBJECTIVE ASSESSMENT OF SWALLOW FUNCTION (QUANTITATIVE ? PER TRIAL): PENETRATION / ASPIRATION SCALE (FENG): 1 = does not enter airway 2 = enters airway/above vocal folds/ejected 3 = enters airway/above vocal folds/not ejected 4 = enters airway/contacts vocal folds/ejected 5 = enters airway/contacts vocal folds/not ejected 6 = enters airway/below vocal folds/ejected 7 = enters airway/below vocal folds/not ejected despite effort 8 = enters airway/below vocal folds/no effort VIDEOFLOROSCOPIC SCALE SCORE (FENG): Grade I = aspiration of material that has penetrated into the laryngeal vestibule, intact cough reflex Grade II = aspiration < 10 % of the bolus, intact cough reflex Grade III = aspiration of < 10 % of the bolus, reduced cough reflex or aspiration of > 10 % of the bolus, intact cough reflex Grade IV = aspiration of > 10 % of the bolus, reduced cough reflex Penetration-Aspiration Scale Score Thin Liquid via teaspoon: Result: 1= does not enter airway Thin Liquid via teaspoon Trial 2: Result: 1= does not enter airway Thin liquid via small sip by cup: Result: 2= enter airway/above vocal folds/ejected Thin liquid via [place] thick liquid by cup: Result: 1= does not enter airway Pudding via teaspoon: Result: 1= does not enter airway (TELESALES ADVISOR cued a double swallow, patient unable to complete second swallow) Comment: Esophageal screen Thin Liquid via single sip by cup Trial 2: Result: 3= enters airways/above vocal folds/not ejected Thin Liquid via single sip by cup with effortful swallow: Result: 3= enters airways/above vocal folds/not ejected [place] thick liquid by cup Trial 2: Result: 2= enter airway/above vocal folds/ejected 1/4 Cookie: Result: 1= does not enter airway Thin Liquid via teaspoon Trial 3: Result: 1= does not enter airway Oral Phase Labial Seal: No Labial Escape Tongue Control During Bolus Hold: Posterior escape of less than half of bolus Bolus Preparation/Mastication: Slow prolonged chewing/mashing with complete recollection Bolus Transport/Lingual Motion: Slowed tongue motion Oral Residue: Residue collection on oral structures Pharyngeal Phase Initiation of Pharyngeal Swallow: Bolus head in pyriforms Soft Palate Elevation: Trace column of contrast/air between soft palate and pharyngeal wall Laryngeal Elevation: Partial superior movement thyroid cart/partial apprx aryt-epig petiole Anterior Hyoid Excursion: Partial anterior movement Epiglottic Movement: Complete inversion Laryngeal Vestibule Closure at Height of Swallow: Incomplete; narrow column of air/contrast in laryngeal vestibule Pharyngeal Stripping Wave: Present - diminished Pharyngoesophageal Segment Opening: Parital distension and partial duration; parital obstruction of flow Tongue Base Retraction: Wide column of contrast between tongue base & post. pharyngeal wall Pharyngeal Residue: Collection of residue within or on pharyngeal structures Esophageal Phase Esophageal Clearance: Complete clearance Diagnosis/Impression Diagnosis: Mild oropharyngeal phase dysphagia (R13.12) Impression: The oral phase is marked by... -Slowed A-P transport. -Mild oral residues, patient able to complete a second swallow as needed to clear. -Posterior loss of <1/2 of certain thin liquid trials to the pyriforms prior to swallow onset. The pharyngeal phase is marked by... -Decreased airway closure during the study due to decreased anterior hyoid excursion and laryngeal elevation - TELESALES ADVISOR suspects the patient fatigues as he had increased laryngeal penetration with thin and nectar thick liquids by cup as compared to the first trials of each. -Moderate pharyngeal residues increasing risk for post prandial aspiration. Residues are due to decreased tongue base retraction, pharyngeal contraction, and UES opening/duration. -Laryngeal penetration of thin and mildly/nectar thick liquids that did not fully eject from the laryngeal vestibule after the swallow. Recommendations Diet: Mechanical Soft Textures (Soft and Bite size Textures - IDDSI Level 6) and Thin Liquids Comment: The patient is recommended for [place] Free Water Protocol (FFWP) to promote increased opportunities for swallowing throughout the day and to promote improved hydration. Patient has been previously trained in this protocol. TELESALES ADVISOR provided handout outlining rules of FFWP and recommended ST. Compensatory Strategies: Small Bites, Liquid by Teaspoon Only, Slow Rate, Alternate bites/solids and sips/liquids and Sitting upright Supervision: Distant Supervision Recommend Repeat Modified Barium Swallow: TBD Need for Skilled Speech Therapy Services: Yes Comment: Will recommend the patient for continued dysphagia therapy to address deficits in oropharyngeal swallow function. Will recommend the patient for oropharyngeal strengthening to improve tongue base retraction, pharyngeal contraction, hyolaryngeal elevation/excursion, and duration of UES opening (Kristin, effortful swallow, Rmei, CTAR). The patient would benefit from thorough education regarding diet recommendations and recommended compensatory strategies. Education Completed: 1. Described result of evaluation., 2. Pt understands evaluation & agrees with goals and treatment plan., 4. Family/caregivers understand evaluation & agree w/ goals & tx plan. (Reviewed MBSS results and recommendations with pt's , Emmanuelle, and sister, Emmanuelle Cameron.), 7. Pt requires further education on strategies & risks. and 8. Family/caregivers require further education on strategies & risks. Status Active ST Patient: Active Contact Information [facility] Speech Therapy:: Isabel Terry M.A. [facility] Speech-Language Pathologist [facility] [address] [place] [address] [phone]
--- NOTE | 2023-05-12 14:16 | CASEMGMT ---
Social Work Precert has been obtained for pt to admit to the TCU. Physician updated and pt is ready for discharge today. Discharge orders faxed to TCU and Qian notified that pt will dc today. CONCEPCION met with pt and and updated. Both agreeable to dc to TCU. Disposition: TCU, skilled level of care BRENNA Vela
[2023-05-12 14:19] VITALS: BP 124/58; PULSE 70; RESP 17; TEMP 36.8; O2SAT 97
--- NOTE | 2023-05-12 14:32 | NURSING ---
Report given to Tessy ROCHA in TCU at this time. Okay to send over in about 30-40min
== END 2023-05-12 15:39 | disposition skilled nursing facility (03) | DRG 641 ==
LOC: ED 20:20 → MS3 05-11 07:11
PROVIDERS: Admitting Provider Family Medicine; Emergency Provider Emergency Medicine; PCP Family Medicine; Visit Provider Student in an Organized Health Care Education/Training Program
DX: R62.7 Adult failure to thrive (principal); I13.0 Hypertensive heart and chronic kidney disease with heart failure and stage 1 through stage 4 chronic kidney disease, or unspecified chronic kidney disease; I50.32 Chronic diastolic (congestive) heart failure; I48.0 Paroxysmal atrial fibrillation; N18.32 Chronic kidney disease, stage 3b; E86.0 Dehydration; R26.2 Difficulty in walking, not elsewhere classified; E78.5 Hyperlipidemia, unspecified; I25.10 Atherosclerotic heart disease of native coronary artery without angina pectoris; Z86.73 Personal history of transient ischemic attack (TIA), and cerebral infarction without residual deficits; Z79.82 Long term (current) use of aspirin; R53.81 Other malaise; N40.1 Benign prostatic hyperplasia with lower urinary tract symptoms; R35.1 Nocturia; Z95.1 Presence of aortocoronary bypass graft; Z23 Encounter for immunization
CPT/HCPCS: 36415; 70450; 71045; 74230; 80048; 81001; 85025; 87428; 92610; 92611; 96360; 96361; 97110; 97162; 97166; 97530; 97535; 97802; 99221; 99284; G0008; J7030; J7040; 90662; A4216; G0378

== ENCOUNTER 2023-05-12 15:52 | Inpatient (IN) | payer MEDICARE, SELFPAY ==
[2023-05-12 16:10] VITALS: BMI 27.4
[2023-05-12 16:11] VITALS: BP 102/57; PULSE 72; RESP 18; TEMP 36.7; O2SAT 95
[2023-05-12 16:31] VITALS: RESP 16
[2023-05-12] MEDS: Potassium Chloride Oral Tablet 20 MEQ PO (17:34)
[2023-05-12] MEDS: Acetaminophen 500 MG Tablet 1000 MG PO (17:35)
[2023-05-12] MEDS: Menthol/Lanolin/Calamine/Znox 113 GM Tube 1 APPLIC TOPICAL (21:23)
--- NOTE | 2023-05-12 21:40 | HP.PCM_ITS ---
HPI - General General Date of Admission: 05/12/23 Date of Service: 05/12/23 Chief Complaint: Here for rehabilitation. HPI Narrative 05/10/2023 ROBERTO ALAS, is a 87 Male who presents to [facility] Emergency Department with weakness. Usually walks with walker. Unable to stand, more difficulty walking, very weak. CBC okay, Creatinine 1.57, Chest X-ray negative. CT brain okay. 05/10/2023 Admit to Hospital. Gentle IV fluids for dehydration, acute kidney injury. PT/OT for debility. 05/11/2023 Recent rehab helpful, but gradual decline since home. PT/OT. Dehydration due to lack of thirst, and thickened liquids. No blood thinnere for atrial fibrillation due to hemorrhagic stroke. 05/12/2023 MBS recommended mecahnical soft textures, thin liquids. 05/12/2023 Admit to TCU with debility, here for rehabilitation, strengthening, prior to disposition determination. [facility] Medical History (Updated 05/12/23 @ 21:[address] 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 Home Medications acetaminophen 500 mg tablet 1,000 mg (2 x 500 mg) PO Q6H PRN PRN Pain Score 1-10 #0 tabs 12/29/22 [Rx Last Taken Unknown] aspirin 81 mg capsule 81 mg PO DAILY heart #30 caps 03/12/23 [Rx Last Taken 05/12/23] furosemide 40 mg tablet 40 mg PO DAILY waterpill #30 tabs 03/12/23 [Rx Last Taken 05/12/23] lovastatin 40 mg tablet 40 mg PO QHS heart disease #30 tabs 03/12/23 [Rx Last Taken 05/11/23] potassium chloride 20 mEq tablet,extended release 20 meq PO BID replacement #60 tabs 03/13/23 [Rx Last Taken 05/12/23] Allergy/AdvReac Type Severity Reaction Status Date / Time No Known Allergies Allergy Verified 05/10/23 21:51 Family History Mother CAD (coronary artery disease) Brother CAD (coronary artery disease) Surgical History H/O coronary artery bypass surgery (09/20/97) History of appendectomy History of cardioversion (08/25/21) History of left heart catheterization (12/12/14) 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) Hx of cholecystectomy Social History household members: spouse Smoking Status: Never smoker alcohol intake: never substance use type: does not use caffeine: Yes Type: coffee Number of servings: 1 what type of physical activity do you participate in: none seatbelt use: always do you feel safe at home: Yes ROS Constitutional Constitutional: Denies chills, fever(s) or weight gain ENT HEENT: Denies headache(s), nasal congestion or nasal discharge Cardiovascular Cardiovascular: Denies chest pain or palpitations Respiratory/Chest Respiratory/Chest: Denies cough, excessive phlegm production or shortness of breath with exertion Gastrointestinal Gastrointestinal: Denies abdominal pain, nausea or vomiting Genitourinary Genitourinary: Denies dysuria Musculoskeletal Musculoskeletal: Denies joint pain or joint swelling Integumentary Integumentary: Denies rash or wounds Neurologic Neurologic: Denies focal weakness, numbness or tingling Psychiatric Psychiatric: Denies anxiety, auditory hallucinations, depression, homicidal ideation or suicidal ideation Vital Signs Vital Signs Vital Signs: 05/12/23 16:11 05/12/23 16:31 Temperature 98.0 F Temperature Source Temporal Pulse Rate 72 Pulse Rhythm Regular Pulse Strength Normal (2+) Respiratory Rate 18 16 Respiratory Effort Normal Non-Labored Respiratory Depth Normal Respiratory Pattern Normal Blood Pressure 102/57 L Blood Pressure Mean 72 Blood Pressure Source Monitor Blood Pressure Position Sitting Blood Pressure Location Right Arm Pulse Ox 95 Oxygen Delivery Method Room Air Room Air Weight Weight: 81.873 kg Body Mass Index (BMI) 27.4 Physical Exam Const alert General Appearance: cooperative HEENT normocephalic Eyes PERRL and EOMs intact bilaterally Neck supple, no JVD and no carotid bruits Resp normal respiratory effort, normal air movement and clear to auscultation bilaterally Cardio regular rate and regular rhythm GI normal to inspection, nondistended, normoactive bowel sounds, non-tender and non-distended Extremity normal capillary refill General Extremity: Negative for edema Skin no rashes or lesions noted General Skin Exam: no breakdown Psych affect normal Appearance: appropriate Assessment & Plan Assessment/Plan (1) Debility: (2) Adult failure to thrive: (3) Acute kidney injury: (4) Dehydration: (5) Dysphagia: QUALIFIERS: Dysphagia type: oropharyngeal phase Qualified Code(s): R13.12 - Dysphagia, oropharyngeal phase (6) Hemorrhagic cerebrovascular accident (CVA): (7) Subdural hematoma: (8) Pulmonary hypertension: (9) Iron deficiency anemia: (10) Orthostatic hypotension: (11) Heart failure with preserved ejection fraction: (12) Hyperlipidemia: QUALIFIERS: Hyperlipidemia type: unspecified Qualified Code(s): E78.5 - Hyperlipidemia, unspecified (13) Appetite loss: (14) Hypokalemia: PLAN: Plan 87 year old male with below past medical history hospitalized for failure to thrive, acute kidney injury, dehydration, complicated by dysphagia, admitted to TCU with debility, here for rehabilitation, strengthening, prior to disposition determination. * Debility - PT/OT. * Dysphagia - ST. * Pain - Tylenol 1000mg q6 prn pain (1-10). * Bowel - Dulcolax 10mg pr daily prn. * Adult immunization - Administer pneumonia vaccine, covid19 vaccine, flu vaccine as appropriate. * DVT prophylaxis - Monitor, history of brain bleed. * Stroke - Aspirin 81mg daily. * Hyperlipidemia - Atorvastatin 10mg qhs. * Heart failure preserved ejection fraction - Furosemide 40mg daily. * Hypokalemia - KCL 20meq bidcm. * Skin irritation - Calmoseptine topical bid. * Tinea Corporis - Nystatin topical bid.
--- NOTE | 2023-05-13 00:42 | NURSING ---
Nurse entered patients room and patient spoke to this nurse but would not open his eyes. This nurse asked patient to open eyes and patient goes I can only open half way, but patient did not open eyes. Pt drowsy, lipitor not given for patient safety.
[2023-05-13 06:02] VITALS: BP 160/85; PULSE 80; RESP 18; TEMP 36.2; O2SAT 98
[2023-05-13 06:04] LABS: Absolute Lymphocyte Count 1.36 X10^3/uL (0.83-4.51); Absolute Neutrophil Count 3.1 X10^3/uL (2.0-7.7); Basophil# 0.02 X10^3/uL; Basophil% 0.4 % (0-1); Eosinophil# 0.09 X10^3/uL; Eosinophils% 1.8 % (0-5); Lymphocyte # 1.36 X10^3/ul (0.83-4.51); Lymphocyte % 26.5 % (19-41); Mean Corp Hgb Conc 32.6 g/dL (32-36); Mean Corpuscular Hgb 30.2 pg (27.0-32.0); Mean Corpuscular Volume 92.7 fL (80-94); Mean Platelet Vol. 9.6 fl (6.2-12.0); Monocyte# 0.55 X10^3/uL; Monocyte% 10.7 % (0-10); NRBC Flagged by Analyzer 0 % (0-5); Neutrophil % 60.4 % (47-70); Platelet Count 122 K/mm3 (150-450); RBC Distribution Width CV 14.8 % (11.6-14.6); RBC Distribution Width SD 50.4 fl (35.1-43.9); Red Blood Count 4.64 M/mm3 (4.6-6.2); White Blood Count 5.1 K/mm3 (4.4-11.0)
[2023-05-13 06:05] VITALS: PULSE 80; RESP 18; O2SAT 98
[2023-05-13 06:36] LABS: Anion Gap 5 (5-15); BUN 25 mg/dL (7-18); BUN/Creat Ratio 19.4 RATIO (10-20); Calcium,Total 8.8 mg/dL (8.5-10.1); Chloride 112 mmol/L (98-107); Creatinine, Serum 1.29 mg/dL (0.70-1.30); EST Glomerular Filtration Rate 56 mL/min (>60); Est Glom Filt Rate - Afr Amer 68 mL/min (>60); Glucose 90 mg/dL (74-106); Potassium 3.9 mmol/L (3.5-5.1); Sodium Level 144 mmol/L (136-145)
[2023-05-13] MEDS: Furosemide 40 MG Tablet PO (08:15)
[2023-05-13] MEDS: Aspirin 81 MG TAB.CHEW PO (08:15)
[2023-05-13] MEDS: Menthol/Lanolin/Calamine/Znox 113 GM Tube 1 APPLIC TOPICAL ×2 (08:15→20:41)
[2023-05-13] MEDS: Potassium Chloride Oral Tablet 20 MEQ PO ×2 (08:15→17:25)
[2023-05-13] MEDS: Tuberculin,Purif.prot.deriv. 50 TU/ML Vial 0.1 ML ID (09:58)
--- NOTE | 2023-05-13 13:48 | CASEMGMT ---
Social Work Met with patient to complete initial assessment. Pt known to this worker from previous stay. No changes to assessment, contacts or code status - DNR-CC. Educated to [facility] insurance with [employer] 05/17 and continued stay is not guaranteed with each review. Pt and both agree things were going well at home prior. SW will continue to follow for DC planning. ROBERTA SalvadorW
--- NOTE | 2023-05-13 14:29 | NURSING ---
Family at bedside, updated that staff and patient tested covid positive.
[2023-05-13 15:18] VITALS: BP 116/65; PULSE 70; RESP 14; TEMP 36.4; O2SAT 98
--- NOTE | 2023-05-13 15:18 | PCM.PN.DRR ---
TCU RX Drug Regimen Review Subjective/Objective Subjective/Objective: Subjective: 87 YOM admitted to TCU 05/12/23 s/p hospitalization at [facility] secondary to weakness/ debility. Admitted to TCU for strengthening and rehabilitation prior to discharge. Discharge plan not known at this time. Objective: Allergies No Known Allergies Allergy (Verified 05/10/23 21:51) Current Medications Generic Name Dose Route Start Last Admin Trade Name Freq PRN Reason Stop Dose Admin Acetaminophen 1,000 mg 05/12/23 16:03 05/12/23 17:35 Acetaminophen 500 Mg Tablet PO 1,000 mg Q6H PRN PRN Administration Pain Score 1-10 Aspirin 81 mg 05/13/23 08:00 05/13/23 08:15 Aspirin 81 Mg Tab.Chew PO 81 mg DAILYCM FRANDY Administration Atorvastatin Calcium 10 mg 05/12/23 22:00 05/12/23 21:24 Atorvastatin Calcium 10 Mg Tablet PO Not Given QHS FRANDY Bisacodyl 10 mg 05/12/23 16:09 Bisacodyl 10 Mg Suppository RC DAILY PRN CONSTIPATION Calamine/Phenol 1 applic 05/12/23 22:00 05/13/23 08:15 Menthol/Lanolin/Calamine/Znox 113 Gm Tube TOPICAL 1 applic BID FRANDY Administration Protocol Furosemide 40 mg 05/13/23 10:00 05/13/23 08:15 Furosemide 40 Mg Tablet PO 40 mg DAILY FRANDY Administration Protocol Nystatin 1 applic 05/12/23 22:00 05/13/23 08:20 Nystatin Powder 30 Gm Bottle TOPICAL 1 applic BID FRANDY Administration Potassium Chloride 20 meq 05/12/23 17:00 05/13/23 08:15 Potassium Chloride Oral Tablet 20 Meq PO 20 meq BIDCM FRANDY Administration Tuberculin PPD 0.1 ml 05/20/23 10:00 Tuberculin,Purif.Prot.Deriv. 50 Tu/Ml Vial ID 05/20/23 10:01 X1 ONE Problem List (Updated 05/12/23 @ 21:[address] Natanael Yeboah MD) Appetite loss (Acute) Hyperlipidemia (Acute) Heart failure with preserved ejection fraction (Acute) Iron deficiency anemia (Acute) Pulmonary hypertension (Acute) Acute kidney injury (Acute) Adult failure to thrive (Acute) Dysphagia (Acute) Subdural hematoma (Acute) Hemorrhagic cerebrovascular accident (CVA) (Acute) Orthostatic hypotension (Acute) Debility (Acute) Vital Signs Temp Pulse Resp BP Pulse Ox O2 Del Method 97.1 F L 80 18 160/85 H 98 Room Air 05/13/23 06:02 05/13/23 06:05 05/13/23 06:05 05/13/23 06:02 05/13/23 06:05 05/13/23 06:05 Oxygen Delivery Method Room Air Weight: 81.873 kg Body Mass Index (BMI) 27.4 Sodium 144 mmol/L (136-145) 05/13/23 05:32 Potassium 3.9 mmol/L (3.5-5.1) 05/13/23 05:32 Chloride 112 mmol/L (98-107) H 05/13/23 05:32 Carbon Dioxide 27.0 mmol/L (21.0-32.0) 05/13/23 05:32 Anion Gap 5 (5-15) 05/13/23 05:32 BUN 25 mg/dL (7-18) H 05/13/23 05:32 Creatinine 1.29 mg/dL (0.70-1.30) 05/13/23 05:32 Est GFR (MDRD) Af Amer 68 mL/min (>60) 05/13/23 05:32 Est GFR (MDRD) Non-Af 56 mL/min (>60) L 05/13/23 05:32 BUN/Creatinine Ratio 19.4 RATIO (10-20) 05/13/23 05:32 Glucose 90 mg/dL (74-106) 05/13/23 05:32 Assessment/Plan: 1. Pain: Tylenol 1000mg PO Q6h PRN Pain 1-10. Please continue to monitor for increased/decreased S/S pain, PRN medication usage, liver function with regular Tylenol use. -The patient has received one dose of PRN Tylenol for pain rated 9/10, post med assessment not completed. Continue to monitor patient's pain. 2. CHF/ HLD: Lipitor 10mg PO QHS, Lasix 40mg PO Daily. Please continue to monitor I/O, potassium levels (K=3.9 on 05/13), lipid panel annually or sooner if clinically indicated (none on file). 3. Stroke: Aspirin 81mg PO Daily. Please continue to monitor patient closely for S/S bleeding/bruising. The patient has a history of a brain bleed, monitor closely. 4. Hypokalemia: K-Dur 20mEq PO BID. Please continue to monitor for stomach upset, N/V, K levels (K = 3.9 on 05/13). 5. Skin Integrity: Calmoseptine topically BID, Nystatin powder topically BID. Please continue to monitor for skin irritation, redness, ulcer formation. 6. Bowel: Dulcolax 10mg ME Daily PRN. Please continue to monitor for increased/decreased S/S constipation and/or diarrhea. -The patient has had a bowel movement today per EMR review. Please continue to monitor for regular bowel movements Assessment/Plan for indications treated with psychotropic medications: The patient is not currently being maintained on any psychotropic medications at time of EMR review. Medical chart and medication regimen reviewed. The following medication irregularities or issues were identified: *1. Hyperlipidemia: Lipid panel not on file per EMR review. Consider obtaining a lipid panel if clinically indicated, thank you. Date Date of Note:: 05/13/23
[2023-05-13] MEDS: Atorvastatin Calcium 10 MG Tablet PO (20:42)
[2023-05-14 08:13] VITALS: BP 127/70; PULSE 64; RESP 17; TEMP 37; O2SAT 95
[2023-05-14] MEDS: Aspirin 81 MG TAB.CHEW PO (08:18)
[2023-05-14] MEDS: Potassium Chloride Oral Tablet 20 MEQ PO ×2 (08:18→16:44)
[2023-05-14] MEDS: Furosemide 40 MG Tablet PO (08:18)
[2023-05-14] MEDS: Menthol/Lanolin/Calamine/Znox 113 GM Tube 1 APPLIC TOPICAL ×2 (08:18→20:55)
[2023-05-14] MEDS: Atorvastatin Calcium 10 MG Tablet PO (21:03)
[2023-05-15] MEDS: Furosemide 40 MG Tablet PO (10:01)
[2023-05-15] MEDS: Potassium Chloride Oral Tablet 20 MEQ PO ×2 (10:01→17:21)
[2023-05-15] MEDS: Aspirin 81 MG TAB.CHEW PO (10:01)
[2023-05-15] MEDS: Menthol/Lanolin/Calamine/Znox 113 GM Tube 1 APPLIC TOPICAL ×2 (10:02→20:59)
[2023-05-15 10:04] VITALS: BP 101/59; PULSE 70; RESP 16; TEMP 36.6; O2SAT 98
[2023-05-15] MEDS: Atorvastatin Calcium 10 MG Tablet PO (20:55)
[2023-05-16] MEDS: Potassium Chloride Oral Tablet 20 MEQ PO ×2 (07:54→17:05)
[2023-05-16] MEDS: Furosemide 40 MG Tablet PO (07:54)
[2023-05-16] MEDS: Aspirin 81 MG TAB.CHEW PO (07:54)
[2023-05-16] MEDS: Menthol/Lanolin/Calamine/Znox 113 GM Tube 1 APPLIC TOPICAL ×2 (08:00→21:14)
[2023-05-16 15:57] VITALS: BP 116/55; PULSE 88; RESP 15; TEMP 36.6; O2SAT 96
[2023-05-16] MEDS: Atorvastatin Calcium 10 MG Tablet PO (21:14)
[2023-05-17 08:30] VITALS: BP 124/67; PULSE 73; RESP 17; TEMP 36.4; O2SAT 99
[2023-05-17] MEDS: Aspirin 81 MG TAB.CHEW PO (08:32)
[2023-05-17] MEDS: Potassium Chloride Oral Tablet 20 MEQ PO ×2 (08:32→18:01)
[2023-05-17] MEDS: Furosemide 40 MG Tablet PO (08:32)
[2023-05-17] MEDS: Menthol/Lanolin/Calamine/Znox 113 GM Tube 1 APPLIC TOPICAL ×2 (08:33→19:56)
--- NOTE | 2023-05-17 14:40 | NS ---
MST score = 3 d/t decreased weight and issues chewing/swallowing.
[2023-05-17] MEDS: Atorvastatin Calcium 10 MG Tablet PO (19:56)
[2023-05-18] MEDS: Acetaminophen 500 MG Tablet 1000 MG PO (05:16)
[2023-05-18] MEDS: Furosemide 40 MG Tablet PO (08:48)
[2023-05-18] MEDS: Aspirin 81 MG TAB.CHEW PO (08:49)
[2023-05-18] MEDS: Potassium Chloride Oral Tablet 20 MEQ PO ×2 (08:49→17:19)
[2023-05-18] MEDS: Menthol/Lanolin/Calamine/Znox 113 GM Tube 1 APPLIC TOPICAL ×2 (08:50→22:00)
[2023-05-18 08:53] VITALS: BP 105/58; PULSE 74
[2023-05-18 10:23] VITALS: BMI 27.6
[2023-05-18 16:00] VITALS: BP 117/66; PULSE 70; RESP 16; TEMP 36.4; O2SAT 95
[2023-05-18 16:09] VITALS: BMI 27.6
[2023-05-18] MEDS: Atorvastatin Calcium 10 MG Tablet PO (22:01)
--- NOTE | 2023-05-19 09:06 | CASEMGMT ---
Social Work IDT met with patient and then dtr via conference call for care plan meeting. Discussed patient's progress in PT/OT/ST/SN. Educated to [facility] insurance with [employer] 05/21 and insurance is indicating issuing DC date with that review. Inquired about readiness to DC home and if can care for pt. confirmed she can care for pt and both will be ready for DC. SW confirmed use of [facility] at DC, whom pt used prior. Pt agreed. Pt denied any DME needs. to transport. SW will await DC date for HHC coordination. Will continue to follow. ROBERTA Salvador ENGINEERING PSYCHOLOGIST
[2023-05-19] MEDS: Aspirin 81 MG TAB.CHEW PO (09:25)
[2023-05-19] MEDS: Potassium Chloride Oral Tablet 20 MEQ PO ×2 (09:25→16:38)
[2023-05-19] MEDS: Furosemide 40 MG Tablet PO (09:25)
[2023-05-19] MEDS: Menthol/Lanolin/Calamine/Znox 113 GM Tube 1 APPLIC TOPICAL ×2 (09:26→20:23)
--- NOTE | 2023-05-19 09:46 | CASEMGMT ---
Social Work BIMS () and PHQ-2 () completed for MDS assessment. Phyllis Vela MSW SEWING MACHINE TESTER
[2023-05-19 11:00] VITALS: BP 120/64; BP 146/86; BP 78/39
[2023-05-19 15:03] VITALS: BP 113/63; PULSE 71; RESP 16; TEMP 36.4; O2SAT 96
[2023-05-19] MEDS: 0.9% Normal Saline (500mL Bag) 500 ML 999 ML IV (17:53)
[2023-05-19] MEDS: 0.9% Saline Lock 10 ML Syringe IV (18:21)
[2023-05-19] MEDS: Atorvastatin Calcium 10 MG Tablet PO (20:20)
[2023-05-19 20:25] VITALS: PULSE 80; RESP 18; O2SAT 94
[2023-05-20 05:52] LABS: Absolute Lymphocyte Count 1.69 X10^3/uL (0.83-4.51); Absolute Neutrophil Count 3.3 X10^3/uL (2.0-7.7); Basophil# 0.01 X10^3/uL; Basophil% 0.2 % (0-1); Eosinophil# 0.06 X10^3/uL; Eosinophils% 1.1 % (0-5); Hematocrit 40.2 % (40-54); Hemoglobin 12.8 g/dL (13.0-16.5); Lymphocyte # 1.69 X10^3/ul (0.83-4.51); Lymphocyte % 31.1 % (19-41); Mean Corp Hgb Conc 31.8 g/dL (32-36); Mean Corpuscular Hgb 29.2 pg (27.0-32.0); Mean Corpuscular Volume 91.6 fL (80-94); Mean Platelet Vol. 9.4 fl (6.2-12.0); Monocyte# 0.36 X10^3/uL; Monocyte% 6.6 % (0-10); NRBC Flagged by Analyzer 0 % (0-5); Neutrophil # 3.29 X10^3/uL (2.7-7.7); Neutrophil % 60.6 % (47-70); Platelet Count 144 K/mm3 (150-450); RBC Distribution Width CV 14.6 % (11.6-14.6); RBC Distribution Width SD 49.1 fl (35.1-43.9); Red Blood Count 4.39 M/mm3 (4.6-6.2); White Blood Count 5.4 K/mm3 (4.4-11.0)
[2023-05-20 06:36] LABS: Anion Gap 4 (5-15); BUN 29 mg/dL (7-18); BUN/Creat Ratio 22.7 RATIO (10-20); Calcium,Total 8.9 mg/dL (8.5-10.1); Chloride 110 mmol/L (98-107); Creatinine, Serum 1.28 mg/dL (0.70-1.30); EST Glomerular Filtration Rate 57 mL/min (>60); Est Glom Filt Rate - Afr Amer 69 mL/min (>60); Estimated Creatinine Clearance 40.82 ml/min; Glucose 106 mg/dL (74-106); Potassium 4.1 mmol/L (3.5-5.1); Sodium Level 140 mmol/L (136-145)
[2023-05-20] MEDS: Aspirin 81 MG TAB.CHEW PO (09:59)
[2023-05-20] MEDS: Furosemide 40 MG Tablet PO (09:59)
[2023-05-20] MEDS: Potassium Chloride Oral Tablet 20 MEQ PO ×2 (10:00→17:35)
[2023-05-20] MEDS: Menthol/Lanolin/Calamine/Znox 113 GM Tube 1 APPLIC TOPICAL ×2 (10:00→21:11)
[2023-05-20] MEDS: Tuberculin,Purif.prot.deriv. 50 TU/ML Vial 0.1 ML ID (10:37)
[2023-05-20 14:30] VITALS: BP 140/64; PULSE 64; RESP 17; TEMP 35.8; O2SAT 96
--- NOTE | 2023-05-20 17:22 | NURSING ---
Updated Dr. Yeboah patient voiding every hour/at times more frequent. New orders placed by Dr. Yeboah.
[2023-05-20 18:15] LABS: Bacteria 0 SEEN /hpf (None Seen); Mucous, Urine 0 SEEN /hpf (<or=2+); Red Blood Cells-Urine 0 SEEN /hpf (0-5); Squamous Epithelial Cells - UA 0 SEEN /hpf (0-5); White Blood Cells 0 SEEN /hpf (0-5)
[2023-05-20 18:20] LABS: Color, Urine Yellow (Yellow); Glucose, Dipstick Normal (Normal); Ketone-Dipstick Negative (Negative); Leukocyte Esterase-Dipstick 25 /ul (Negative); Nitrite-Dipstick Negative (Negative); Occult Blood-Urine Negative /ul (Negative); Protein-Dipstick Negative (Negative); Urine Bilirubin Dipstick Negative (Negative); Urine Clarity Clear (Clear); Urine Urobilinogen Normal (Normal)
[2023-05-20] MEDS: 0.9% Saline Lock 10 ML Syringe IV (20:53)
[2023-05-20 20:57] VITALS: PULSE 78
[2023-05-20] MEDS: Atorvastatin Calcium 10 MG Tablet PO (21:12)
[2023-05-21 05:47] VITALS: PULSE 88; RESP 16; O2SAT 94
[2023-05-21] MEDS: Furosemide 40 MG Tablet PO (08:16)
[2023-05-21] MEDS: Potassium Chloride Oral Tablet 20 MEQ PO ×2 (08:16→17:30)
[2023-05-21] MEDS: Aspirin 81 MG TAB.CHEW PO (08:16)
[2023-05-21] MEDS: Menthol/Lanolin/Calamine/Znox 113 GM Tube 1 APPLIC TOPICAL ×2 (08:17→21:36)
--- NOTE | 2023-05-21 13:08 | CASEMGMT ---
Social Work Insurance issued LCD 05/25, DC 05/26. SW phoned to update. requested DC 05/25 prior to appt at 11 am. SW agreed. Confirmed DC home with [facility], no DME needs. Phoned [facility] for PT/OT Plan: DC home with 05/25, [facility] PT/OT ROBERTA SalvadorW
--- NOTE | 2023-05-21 13:53 | PCM.DC.SUM ---
Providers Date of Admission: 05/12/23 Primary Care Physician: Dr. Enrique Kennedy MD Reason For Visit: GENERALIZED WEAKNESS Diagnosis Discharge Diagnosis (1) Debility: Status: Acute Code(s): R53.81 - Other malaise (2) Adult failure to thrive: Status: Inactive Code(s): R62.7 - Adult failure to thrive (3) Acute kidney injury: Status: Acute Code(s): N17.9 - Acute kidney failure, unspecified (4) Dehydration: Status: Resolved Code(s): E86.0 - Dehydration (5) Dysphagia: Status: Acute Code(s): R13.10 - Dysphagia, unspecified Qualifiers: Dysphagia type: oropharyngeal phase Qualified Code(s): R13.12 - Dysphagia, oropharyngeal phase (6) Hemorrhagic cerebrovascular accident (CVA): Status: Acute Code(s): I61.9 - Nontraumatic intracerebral hemorrhage, unspecified (7) Subdural hematoma: Status: Acute Code(s): S06.5XAA - Traumatic subdural hemorrhage with loss of consciousness status unknown, initial encounter (8) Pulmonary hypertension: Status: Acute Code(s): I27.20 - Pulmonary hypertension, unspecified (9) Iron deficiency anemia: Status: Acute Code(s): D50.9 - Iron deficiency anemia, unspecified (10) Orthostatic hypotension: Status: Acute Code(s): I95.1 - Orthostatic hypotension (11) Heart failure with preserved ejection fraction: Status: Acute Code(s): I50.30 - Unspecified diastolic (congestive) heart failure (12) Hyperlipidemia: Status: Acute Code(s): E78.5 - Hyperlipidemia, unspecified Qualifiers: Hyperlipidemia type: unspecified Qualified Code(s): E78.5 - Hyperlipidemia, unspecified (13) Appetite loss: Status: Acute Code(s): R63.0 - Anorexia (14) Hypokalemia: Status: Resolved Code(s): E87.6 - Hypokalemia Plan 87 year old male with below past medical history hospitalized for failure to thrive, acute kidney injury, dehydration, complicated by dysphagia, admitted to TCU with debility, here for rehabilitation, strengthening, prior to disposition determination. Debility - PT/OT. Dysphagia - ST. Pain - Tylenol 1000mg q6 prn pain (1-10). Bowel - Dulcolax 10mg pr daily prn. Adult immunization - Administer pneumonia vaccine, covid19 vaccine, flu vaccine as appropriate. DVT prophylaxis - Monitor, history of brain bleed. Stroke - Aspirin 81mg daily. Hyperlipidemia - Atorvastatin 10mg qhs. Heart failure preserved ejection fraction - Furosemide 40mg daily. Hypokalemia - KCL 20meq bidcm. Skin irritation - Calmoseptine topical bid. Tinea Corporis - Nystatin topical bid. Medications at Discharge Home Medications acetaminophen 500 mg tablet 1,000 mg (2 x 500 mg) PO Q6H PRN PRN Pain Score 1-10 #0 tabs 12/29/22 aspirin 81 mg capsule 81 mg PO DAILY heart #30 caps 03/12/23 furosemide 40 mg tablet 40 mg PO DAILY waterpill #30 tabs 03/12/23 lovastatin 40 mg tablet 40 mg PO QHS heart disease #30 tabs 03/12/23 potassium chloride 20 mEq tablet,extended release 20 meq PO BID replacement #60 tabs 03/13/23 Hospital Course Operations None Procedures None Summary of Care Provided Minutes Spent on Discharge: 35 Hospital Course: 87 year old male with below past medical history hospitalized for failure to thrive, acute kidney injury, dehydration, complicated by dysphagia, admitted to TCU with debility, here for rehabilitation, strengthening, prior to disposition determination. Discharge home with 05/25/2023, [facility] PT/OT. Physical Exam Const alert General Appearance: cooperative HEENT normocephalic Eyes PERRL and EOMs intact bilaterally Neck supple, no JVD and no carotid bruits Resp normal respiratory effort, normal air movement and clear to auscultation bilaterally Cardio regular rate and regular rhythm GI normal to inspection, nondistended, normoactive bowel sounds, non-tender and non-distended Extremity normal capillary refill General Extremity: Negative for edema Skin no rashes or lesions noted General Skin Exam: no breakdown Psych affect normal Appearance: appropriate Weight / BMI Weight Weight: 82.282 kg Body Mass Index (BMI) 27.6 ABG / Lab / Microbiology Data 05/20/23 05:23 05/20/23 05:23 Laboratory: Laboratory Results - last 24 hr 05/20/23 18:05: Urine Color Yellow, Urine Clarity Clear, Urine pH 6.0, Ur Specific [place] 1.010, Urine Protein Negative, Urine Glucose (UA) Normal, Urine Ketones Negative, Urine Occult Blood Negative, Urine Nitrite Negative, Urine Bilirubin Negative, Urine Urobilinogen Normal, Ur Leukocyte Esterase 25 H, Urine RBC 0 SEEN, Urine WBC 0 SEEN, Ur Squamous Epith Cells 0 SEEN, Urine Bacteria 0 SEEN, Urine Mucus 0 SEEN Microbiology: Microbiology 05/20/23 18:05 Urine, Clean Catch Urine Culture - Preliminary GNR lactose classroom monitor Gram positive organism 05/19/23 04:45 Nasal Secretion SARS-CoV-2 Antigen (Rapid) - Final 05/16/23 06:05 Nasal Secretion SARS-CoV-2 Antigen (Rapid) - Final 05/13/23 06:01 Nasal Secretion SARS-CoV-2 Antigen (Rapid) - Final D/C Instructions Discharge Diet: No restrictions Discharge Activity: Return to Normal Activity, May Shower and Use Walker May resume sexual activity in: No Restrictions Weight Bearing Status: Weight bearing as tolerated Call your doctor if you observe: Fever of 101 or Higher, Inability to urinate, Inability to have a bowel movement, Shortness of breath, Dizziness, Fainting spells, Swelling in the ankles, Chest pain and Uncontrolled pain Additional Instructions: Discharge home with 05/25/2023, [facility] PT/OT. Please Follow Up With: Enrique Kennedy MD When: within 1 week. Meaningful Use Info Meaningful Use Diagnoses (Choose all that apply): None applicable Discharge Plan Admission Admit Date/Time: 05/12/23 15:52 Primary Reason for Your Visit: Debility. Attending Provider: Natanael Yeboah Chi Primary Care Provider: Enrique Kennedy Instructions Additional Instructions / Restrictions: Discharge home with 05/25/2023, [facility] Care PT/OT. Discharge Orders/Prescriptions Prescriptions: Continued acetaminophen 500 mg Tablet 1,000 mg PO Q6H PRN PRN (Reason: Pain Score 1-10) Qty: 0 0RF aspirin 81 mg capsule 81 mg PO DAILY Qty: 30 0RF furosemide 40 mg tablet 40 mg PO DAILY Qty: 30 0RF lovastatin 40 mg tablet 40 mg PO QHS Qty: 30 3RF potassium chloride 20 mEq tablet extended release 20 meq PO BID Qty: 60 0RF Referrals / Follow Up: Enrique Kennedy MD [Primary Care Provider] - Disposition Disposition (needs filled in before D/C Order can be placed): Home Health Service
[2023-05-21 16:00] VITALS: BP 139/71; PULSE 71; RESP 18; TEMP 36.4; O2SAT 99
[2023-05-21] MEDS: Atorvastatin Calcium 10 MG Tablet PO (21:36)
[2023-05-22] MEDS: 0.9% Saline Lock 10 ML Syringe IV (02:23)
[2023-05-22] MEDS: Potassium Chloride Oral Tablet 20 MEQ PO ×2 (08:11→16:25)
[2023-05-22] MEDS: Aspirin 81 MG TAB.CHEW PO (08:11)
[2023-05-22] MEDS: Nitrofurantoin Macrocrystals 100 MG Capsule PO ×2 (09:13→21:15)
[2023-05-22] MEDS: Furosemide 40 MG Tablet PO (09:13)
[2023-05-22] MEDS: Menthol/Lanolin/Calamine/Znox 113 GM Tube 1 APPLIC TOPICAL ×2 (09:13→21:20)
--- NOTE | 2023-05-22 13:26 | NURSING ---
pt and family update on positive covid pt.
[2023-05-22 15:50] VITALS: BP 144/77; PULSE 70; RESP 16; TEMP 36.4; O2SAT 99
[2023-05-22] MEDS: Atorvastatin Calcium 10 MG Tablet PO (21:15)
[2023-05-22 21:35] VITALS: O2SAT 95
[2023-05-23] MEDS: Nitrofurantoin Macrocrystals 100 MG Capsule PO ×2 (07:58→19:58)
[2023-05-23] MEDS: Menthol/Lanolin/Calamine/Znox 113 GM Tube 1 APPLIC TOPICAL ×2 (07:59→20:06)
[2023-05-23] MEDS: Potassium Chloride Oral Tablet 20 MEQ PO ×2 (07:59→16:57)
[2023-05-23] MEDS: Aspirin 81 MG TAB.CHEW PO (07:59)
[2023-05-23] MEDS: Furosemide 40 MG Tablet PO (07:59)
[2023-05-23] MEDS: Cephalexin 500 MG Capsule PO ×3 (11:39→23:58)
[2023-05-23] MEDS: 0.9% Saline Lock 10 ML Syringe IV (13:35)
[2023-05-23 16:00] VITALS: BP 127/76; PULSE 71; RESP 16; TEMP 36.8; O2SAT 98
[2023-05-23] MEDS: Atorvastatin Calcium 10 MG Tablet PO (19:59)
[2023-05-24] MEDS: 0.9% Saline Lock 10 ML Syringe IV (04:23)
[2023-05-24] MEDS: Cephalexin 500 MG Capsule PO ×3 (06:25→17:12)
[2023-05-24] MEDS: Aspirin 81 MG TAB.CHEW PO (08:12)
[2023-05-24] MEDS: Furosemide 40 MG Tablet PO (08:12)
[2023-05-24] MEDS: Potassium Chloride Oral Tablet 20 MEQ PO ×2 (08:12→17:12)
[2023-05-24] MEDS: Nitrofurantoin Macrocrystals 100 MG Capsule PO ×2 (08:13→20:11)
[2023-05-24] MEDS: Menthol/Lanolin/Calamine/Znox 113 GM Tube 1 APPLIC TOPICAL ×2 (08:13→20:12)
[2023-05-24 14:01] VITALS: BP 116/63; PULSE 72; RESP 14; TEMP 36.8; O2SAT 99
[2023-05-24 15:22] VITALS: BP 119/75; PULSE 70; RESP 22; TEMP 36.5; O2SAT 96
--- NOTE | 2023-05-24 16:20 | CASEMGMT ---
Social Work BIMS () and PHQ-2 () completed for MDS assessment. Phyllis Vela MSW GORE CUTTER
[2023-05-24] MEDS: Atorvastatin Calcium 10 MG Tablet PO (20:11)
[2023-05-25] MEDS: Cephalexin 500 MG Capsule PO ×2 (00:32→06:40)
[2023-05-25 06:00] VITALS: BP 109/49; PULSE 82; RESP 16; TEMP 36.2; O2SAT 95
--- NOTE | 2023-05-25 07:14 | MDS.RN ---
Information for the mds was obtained from review of the clinical recoed, interview of resident, staff, and direct observation of residents care.
[2023-05-25] MEDS: Furosemide 40 MG Tablet PO (07:54)
[2023-05-25] MEDS: Potassium Chloride Oral Tablet 20 MEQ PO (07:54)
[2023-05-25] MEDS: Aspirin 81 MG TAB.CHEW PO (07:54)
[2023-05-25] MEDS: Nitrofurantoin Macrocrystals 100 MG Capsule PO (07:54)
[2023-05-25] MEDS: Menthol/Lanolin/Calamine/Znox 113 GM Tube 1 APPLIC TOPICAL (07:55)
== END 2023-05-25 10:40 | disposition home health service (06) | DRG 683 ==
PROVIDERS: Admitting Provider Family Medicine Geriatric Medicine; PCP Family Medicine; Visit Provider Family Medicine Geriatric Medicine
DX: N17.9 Acute kidney failure, unspecified (principal); I13.0 Hypertensive heart and chronic kidney disease with heart failure and stage 1 through stage 4 chronic kidney disease, or unspecified chronic kidney disease; I50.32 Chronic diastolic (congestive) heart failure; N39.0 Urinary tract infection, site not specified; I27.21 Secondary pulmonary arterial hypertension; R62.7 Adult failure to thrive; B35.4 Tinea corporis; I48.0 Paroxysmal atrial fibrillation; B96.1 Klebsiella pneumoniae [K. pneumoniae] as the cause of diseases classified elsewhere; N18.32 Chronic kidney disease, stage 3b; E78.5 Hyperlipidemia, unspecified; I25.10 Atherosclerotic heart disease of native coronary artery without angina pectoris; E87.6 Hypokalemia; R13.12 Dysphagia, oropharyngeal phase; Z79.82 Long term (current) use of aspirin; N40.1 Benign prostatic hyperplasia with lower urinary tract symptoms; R39.15 Urgency of urination; Z79.899 Other long term (current) drug therapy; Z86.73 Personal history of transient ischemic attack (TIA), and cerebral infarction without residual deficits; B95.7 Other staphylococcus as the cause of diseases classified elsewhere
CPT/HCPCS: 36415; 80048; 81001; 85025; 87077; 87086; 87088; 87186; 87811; 92526; 92610; 97110; 97112; 97116; 97162; 97166; 97530; 97535; 97802; J7040; A4216

== ENCOUNTER → 2023-06-17 | Outpatient (CLI) | payer MEDICARE, SELFPAY ==
--- NOTE | 2023-06-16 15:30 | CYST_PTH ---
PATIENT: ROBERTO ALAS LOC: [facility] U#:[id number] AGE/SX: 88/M ROOM: RE06/17/[address]: Dr. Mo Shine MD : [id number] BED: DIS: 06/17/2023 SPEC #: [id number] RECD: 06/17/23 09:37 STATUS: FERNANDEZ REAnam #: [id number] JACQUI: 06/16/23 15:[address]: Mo Shine DEPT: SURGICAL PATHOLOGY RECD BY: Wanda Cleaning ENTERED: 06/17/23 12:13 SP TYPE: Cyst OTHR DR: Dr. Enrique Kennedy MD Tissues: CYST Procedures: Surgery Specimen Level III HEADER OPERATION: Excision of cyst behind ear PRE-OP DIAGNOSIS: Excision of cyst TISSUE SUBMITTED: Cyst MICROSCOPIC DIAGNOSIS Lesion behind ear, excision: Actinic keratosis and solar elastosis. Demodex folliculorum. Focal changes suggestive of ruptured epidermal inclusion cyst with acute and chronic inflammation and foreign body giant cell reaction. SJ: 06/18/2023 MICROSCOPIC DESCRIPTION Slides are reviewed. GROSS DESCRIPTION Received in fixative is one container labeled with the patient's name and designated cyst. The specimen consists of a piece of louis-white skin measuring 1.8 x 0.8 x 0.3 cm. This piece is inked and serially sectioned. Also present in the container are two smaller pieces of soft tissue measuring in aggregate 0.5 x 0.5 x 0.2 cm. The specimen is totally submitted in one cassette. /DENIS:jay jay:manolo 06/17/23 TC:5 [place]: [id number]
== END | disposition home or self-care (01) ==
LOC: LABSPEC 09:43
PROVIDERS: PCP Family Medicine; Referring Provider Surgery; Visit Provider Surgery
DX: Q18.1 Preauricular sinus and cyst (principal)
CPT/HCPCS: 88304

== ENCOUNTER → 2023-11-24 | Outpatient (CLI) | payer MEDICARE, SELFPAY ==
[2023-11-24 13:23] LABS: ALB/GLOB Ratio 1.1 RATIO (0.9-2.4); AST(SGOT) 17 U/L (15-37); Alanine Aminotransfer ALT/SGPT 30 U/L (16-61); Albumin, Serum 3.4 g/dL (3.2-5.0); Alkaline Phosphatase 100 U/L (45-117); Anion Gap 4 (5-15); BUN 28 mg/dL (7-18); BUN/Creat Ratio 20.4 RATIO (10-20); Calcium,Total 9.3 mg/dL (8.5-10.1); Chloride 111 mmol/L (98-107); Cholesterol 131 mg/dL (200); Creatinine, Serum 1.37 mg/dL (0.70-1.30); EST Glomerular Filtration Rate 52 mL/min (>60); Est Glom Filt Rate - Afr Amer 63 mL/min (>60); Glucose 90 mg/dL (74-106); High Density Lipoprotein 39 mg/dL; Potassium 3.9 mmol/L (3.5-5.1); Protein, Total 6.4 g/dL (6.4-8.2); Sodium Level 141 mmol/L (136-145); Triglycerides 141 mg/dL; Very Low Density Lipoprotein 28 mg/dL (5-40)
== END | disposition home or self-care (01) ==
LOC: LAB 11:48
PROVIDERS: PCP Family Medicine; Visit Provider Physician Assistant Medical
DX: I25.10 Atherosclerotic heart disease of native coronary artery without angina pectoris (principal); E78.5 Hyperlipidemia, unspecified
CPT/HCPCS: 36415; 80053; 80061

== ENCOUNTER 2024-01-26 10:57 | Emergency (ER) | payer MEDICARE, SELFPAY ==
[2024-01-26 10:57] VITALS: BP 133/75; PULSE 88; RESP 16; TEMP 36.4; O2SAT 98; BMI 27.0
--- NOTE | 2024-01-26 11:30 | RAD_ITS ---
STUDY: X-RAY - PELVIS AND LEFT HIP REASON FOR EXAM: Male, 88 years old. Left hip injury following a fall. TECHNIQUE: 3 views of the pelvis and hip. COMPARISON: None. FINDINGS: A large amount fecal material is seen in the rectum. Normal visualized soft tissue structures. Normal bilateral iliac wings, sacroiliac joints and visualized sacrum. Normal bilateral superior and inferior pubic rami. Normal pubic symphysis. Normal bilateral ischial tuberosities. Normal visualized femoral head. Normal acetabulum. There is moderate articular joint space narrowing of the hip. RAD/HIP, UNI W/ Pelvis 2-3 Views IMPRESSION: Moderate degree of joint space narrowing of the left hip joint. Electronically Signed: Domo Appiah MD at 12:15 EDT ,
--- NOTE | 2024-01-26 11:56 | ED.VIS.FALL ---
HPI HPI - Fall History of Present Illness Chief Complaint: Fall Informant: patient and spouse/S.O. Occured/Mechanism Occurred: Today and Weeks Mechanism/Context: Yes same level fall Usually ambulates: Walker Pain/Injury Pain Location: back and lower extremity Quality of Pain: Dull and Aching Current Severity: Mild Associated Symptoms Associated Symptoms: Negative for Parasthesias, Weakness, Loss of function, Inability to ambulate, Loss of consciousness or Amnesia Narrative Narrative: 88-year-old male resident at [facility] is extensive past medical history of chronic kidney disease, A-fib, CAD, pacemaker with prior subdural. He is on aspirin but no other blood thinners. He fell 3 weeks ago at [facility] had a lot of bruising but was not evaluated at that time. He also fell today and was complaining some left hip discomfort. Said he fell today around 8 AM in his room. He normally uses a walker. Denies hitting his head nor any LOC nor any headache. Denies other complaints. Prior similar symptoms: Yes Recent Illness/Hospitalization: No PFSH [facility] [place] Medical History Adult failure to thrive Inability to walk CRF (chronic renal failure) Benign prostatic hyperplasia (BPH) with urinary urgency Left-sided neglect History of complete heart block Chronic kidney disease, stage 3b Hyperlipidemia Coronary artery disease Atrial fibrillation Hyperbilirubinemia Chronic renal insufficiency Generalized weakness Accelerated junctional rhythm (03/23/21) Bacteremia Cellulitis Prostate enlargement Obesity Restrictive airway disease senior care current use of anticoagulant Essential (primary) hypertension Carotid bruit Atherosclerosis of coronary artery of [place] heart without angina pectoris Secondary pulmonary arterial hypertension Paroxysmal atrial fibrillation Chronic diastolic heart failure Home Medications ?Medication ?Instructions ?Recorded ?Last Taken ?Type lovastatin 40 mg tablet 40 mg PO QHS heart disease #30 tabs 03/12/23 05/11/23 Rx potassium chloride 20 mEq 20 meq PO BID replacement #60 tabs 03/13/23 05/12/23 Rx tablet,extended release Saccharomyces boulardii 250 mg 10,000 mmu cells PO BID 06/16/23 Unknown History capsule (Daily Probiotic (S. boulardii)) acetaminophen 325 mg tablet 325 mg PO Q4H PRN 06/16/23 Unknown History (Tylenol) dutasteride 0.5 mg capsule 0.5 mg PO DAILY 06/16/23 Unknown History ferrous sulfate 325 mg (65 mg 325 mg PO DAILY 06/16/23 Unknown History iron) tablet furosemide 20 mg tablet (Lasix) 20 mg PO DAILY 06/16/23 Unknown History loperamide 2 mg capsule 2 mg PO Q6H PRN 06/16/23 Unknown History polyethylene glycol 3350 17 4 g PO DAILY 06/16/23 Unknown History gram/dose oral powder (Miralax) aspirin 81 mg tablet,delayed See Rx Instructions .Route 09/22/23 Unknown Rx release .COMPLEX #90 TABLETS Allergy/AdvReac Type Severity Reaction Status Date / Time No Known Allergies Allergy Verified 01/26/24 10:57 Family History Mother CAD (coronary artery disease) Colon cancer Diabetes Brother CAD (coronary artery disease) Hypertension Surgical History 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) History of cardioversion (08/25/21) History of left heart catheterization (12/12/14) History of appendectomy Hx of cholecystectomy H/O coronary artery bypass surgery (09/20/97) Social History household members: spouse Smoking Status: Never smoker alcohol intake: never substance use type: does not use caffeine: Yes Type: coffee Number of servings: 1 what type of physical activity do you participate in: none seatbelt use: always do you feel safe at home: Yes ROS ROS ED ROS Narrative Denies recent illness. Review of Systems ROS Unobtainable: Denies due to encephalopathy Constitutional Constitutional ED: Denies chills or fever(s) Eyes Eyes: Denies blurry vision ENT ENT ED: Denies ear pain Cardiovascular Cardiovascular: Denies chest pain Respiratory/Chest Respiratory/Chest: Denies cough Gastrointestinal Gastrointestinal: Denies abdominal pain Genitourinary Genitourinary ED: Denies dysuria Musculoskeletal Musculoskeletal: Denies arthralgias Integumentary Denies abscess or Abrasions Neurologic Neurologic: Denies headache(s) Psychiatric Psychiatric: Denies anxiety Endocrine Endocrinology: Denies polydipsia or polyphagia Hematologic/Lymphatic Hematologic/Lymphatic: Reports easy bruising; Denies lymphadenopathy Allergic/Immunologic Allergic/Immunologic ED: Denies mouth swelling, tongue swelling or urticaria EXAM Physical Exam Narrative Exam Narrative: Well-appearing 88-year-old male. Vital signs stable afebrile. and daughter in the room at bedside. Patient is in no distress. Sitting upright in bed. Awake alert. Answering questions following commands. H EENT exam unremarkable. Pupils round reactive light. No facial or head trauma. Nontender. Neck nontender. Back his thoracic and lumbar spine are nontender he is resolving bruising on his lower back and coccyx area. But he is really not complaining of any pain or tenderness there. Lungs clear to auscultation. Heart regular rhythm no murmur rate about 85. Chest wall and ribs nontender. No bruising. Prior sternotomy. Abdomen soft nontender. No peritoneal signs. No bruising. Pelvic girdle intact. He has a bruise to his left hip no significant tenderness. Also a bruise to his medial left thigh. He has normal flexion extension of both hips knees and ankles. There is chronic arthritic changes. Normal dorsi plantarflexion. No shortening or rotation. Neurologically is awake and alert. Answering questions and following commands. Const Vital Signs: 01/26/24 10:57 01/26/24 11:21 Temperature 97.6 F L Temperature Source Temporal Pulse Rate 88 Respiratory Rate 16 Respiratory Effort Normal Blood Pressure 133/75 H Blood Pressure Mean 94 Pulse Ox 98 Oxygen Delivery Method Room Air Room Air Positive well nourished and well developed; Negative for cachectic, contractures or unkempt General Appearance ED: well developed and NAD; Negative for unkempt, cachectic or contractures Nutritional Appearance: Negative for cachectic HEENT Reports normocephalic atraumatic; Negative for trauma, contusion, hematoma or tenderness Eyes PERRL and EOMs intact bilaterally General Eye ED: Negative for pale conjunctiva or scleral icterus Neck full ROM, no lymphadenopathy and supple General: Negative for tenderness Chest Wall inspection of chest normal and palpation of chest normal Chest: Negative for other Resp normal respiratory effort, no retractions and clear to auscultation bilaterally Effort and Inspection: Negative for pain with movement Auscultation: Negative for rales, rhonchi or wheezes Cardio regular rate and regular rhythm Rate: Negative for bradycardia or tachycardic GI non-tender, non-distended and no masses Inspection: Negative for abdominal distention Auscultation: normoactive bowel sounds Palpation: soft; Negative for guarding Back/Spine no CVA tenderness Back/Spine Narrative: Bruising lower back and tailbone area. Really no significant tenderness currently. General Back: Negative for CVA tenderness Cervical Spine: Negative for cervical spine tenderness Lumbar Spine / Lower Back: Negative for lumbar spinal tenderness Extremity Extremity Narrative: Bruising left hip. No shortening or rotation. Normal range of motion. Bruising medial left thigh. Old. Able to flex and extend both hips. Neuro oriented x3, moves all extremities and no focal motor deficits Neuro Narrative: Patient is awake and alert. Answering questions and following commands. [place] Coma Scale: document GCS findings Spontaneous Obeys Commands Oriented 15 Sensorium / Orientation: alert, oriented to person and oriented to place Motor Exam: strength 5/5 throughout Psych mental status grossly normal and thought process normal Appearance: Negative for unkempt Skin Skin Narrative: Bruising. Lesions: no lesions Rashes: no rashes MDM MDM MDM Narrative Medical decision making narrative: 88-year-old male fell at the nursing about 3 weeks ago was not evaluated and fell again today. X-ray of his left hip and pelvis was read by myself shows no acute abnormality. No fracture or dislocation. Otherwise exam is good. Family nor the patient wanted any other workup. They are comfortable with him being discharged back to [facility]. History & Record Review Discussion w/independent historian: Patient and Family Additional record(s) reviewed:: Prior inpatient record, Prior outpatient record, Prior ED visit and Prior labs Radiography Diagnostic Testing: Left hip x-ray with pelvis 3 views interpreted by myself shows no acute fracture or dislocation. Discharge Plan Triage Chief Complaint: Fall ED Provider: Nilo Zarate Dx/Rx/DC Orders Clinical Impression: Fall, Contusion of left hip, Lumbar contusion, History of atrial fibrillation Instructions: ED Hip Contusion Prescriptions: No Action acetaminophen [Tylenol] 325 mg tablet 325 mg PO Q4H PRN loperamide 2 mg capsule 2 mg PO Q6H PRN ferrous sulfate 325 mg (65 mg iron) tablet 325 mg PO DAILY furosemide [Lasix] 20 mg tablet 20 mg PO DAILY polyethylene glycol 3350 [Miralax] 17 gram/dose powder 4 g PO DAILY dutasteride 0.5 mg capsule 0.5 mg PO DAILY Saccharomyces boulardii [Daily Probiotic (S. boulardii)] 250 mg capsule 10,000 mmu cells PO BID lovastatin 40 mg tablet 40 mg PO QHS Qty: 30 3RF potassium chloride 20 mEq tablet extended release 20 meq PO BID Qty: 60 0RF aspirin 81 mg tablet,delayed release (DR/EC) See Rx Instructions .ROUTE .COMPLEX Qty: 90 3RF Dose Instruction: take 1 tablet by mouth once daily Rx Instructions: take 1 tablet by mouth once daily Primary Care Provider: Enrique Kennedy Referrals: Enrique Kennedy MD [Primary Care Provider] - As Needed Activity Restrictions/Additional Instructions: Ice to all sore areas. You have bruising of your left hip and back. This should progressively get better but may take weeks. On your x-ray there is no signs of any broken or dislocated hip. The x-rays look good. This should progressively improve if it still very painful in 2 weeks it needs to be reevaluated. Print Language: Mexican Disposition Disposition: Home, Self Care
[2024-01-26 12:25] VITALS: BP 136/64; PULSE 80; RESP 18; TEMP 36.6; O2SAT 98
== END 2024-01-26 12:27 | disposition home or self-care (01) ==
PROVIDERS: Emergency Provider Emergency Medicine; PCP Family Medicine; Visit Provider Emergency Medicine
DX: S70.02XA Contusion of left hip, initial encounter (principal); I48.91 Unspecified atrial fibrillation; N18.32 Chronic kidney disease, stage 3b; S30.0XXA Contusion of lower back and pelvis, initial encounter; I25.10 Atherosclerotic heart disease of native coronary artery without angina pectoris; W18.30XA Fall on same level, unspecified, initial encounter; Z95.1 Presence of aortocoronary bypass graft; Z95.0 Presence of cardiac pacemaker; Z79.01 Long term (current) use of anticoagulants; Z79.82 Long term (current) use of aspirin; I12.9 Hypertensive chronic kidney disease with stage 1 through stage 4 chronic kidney disease, or unspecified chronic kidney disease
CPT/HCPCS: 73502; 99283

== ENCOUNTER 2024-02-14 10:14 | Emergency (ER) | payer MEDICARE, SELFPAY ==
[2024-02-14 10:14] VITALS: BP 130/67; PULSE 108; RESP 16; TEMP 36.4; O2SAT 95
[2024-02-14 10:24] VITALS: TEMP 36.9
--- NOTE | 2024-02-14 10:37 | EKG12_ITS ---
Test Reason : SOB Blood Pressure : / mmHG Vent. Rate : 084 BPM Atrial Rate : 059 BPM P-R Int : 000 ms QRS Dur : 166 ms QT Int : 398 ms P-R-T Axes : 000 -46 099 degrees QTc Int : 470 ms Ventricular-paced rhythm Abnormal ECG Confirmed by Ziggy Olmstead ([id number]), technical writer and editor MAGY JAMES ([id number]) on 02/15/2024 12:51:44 PM Referred By: Confirmed By:Ziggy Olmstead
--- NOTE | 2024-02-14 10:39 | EX.ED.DYSGE1 ---
HPI History of Present Illness Chief Complaint: Shortness of Breath Detail of Chief Complaint: Generalized weakness. Informant: patient, spouse/S.O. and family Onset/Context/Timing Onset: Today and Yesterday Context: Gradual Onset Timing: Continuous Current Severity: Mild Maximum Severity: Mild Narrative Narrative: 88-year-old male resident of [facility]. Has a history of A-fib, CAD, CHF with a pacemaker. Said he just been shaky and felt weak the last day or so. Denies vomiting or diarrhea. No dysuria or melena. May be a low-grade temperature to alf. No chest pain. No abdominal pain. He has been urinating normally. Denies any significant changes in his bowel movement. Says when he tries to stand he is extremely weak and needs help. Prior similar symptoms: No Recent Illness/Hospitalization: No PFSH PFSH Medical History Adult failure to thrive Inability to walk CRF (chronic renal failure) Benign prostatic hyperplasia (BPH) with urinary urgency Left-sided neglect History of complete heart block Chronic kidney disease, stage 3b Hyperlipidemia Coronary artery disease Atrial fibrillation Hyperbilirubinemia Chronic renal insufficiency Generalized weakness Accelerated junctional rhythm (03/23/21) Bacteremia Cellulitis Prostate enlargement Obesity Restrictive airway disease pen[facility] current use of anticoagulant Essential (primary) hypertension Carotid bruit Atherosclerosis of coronary artery of [place] heart without angina pectoris Secondary pulmonary arterial hypertension Paroxysmal atrial fibrillation Chronic diastolic heart failure Home Medications ?Medication ?Instructions ?Recorded ?Last Taken ?Type lovastatin 40 mg tablet 40 mg PO QHS heart disease #30 tabs 03/12/23 05/11/23 Rx Saccharomyces boulardii 250 mg 10,000 mmu cells PO BID 06/16/23 Unknown History capsule (Daily Probiotic (S. boulardii)) acetaminophen 325 mg tablet 325 mg PO Q4H PRN 06/16/23 Unknown History (Tylenol) dutasteride 0.5 mg capsule 0.5 mg PO DAILY 06/16/23 Unknown History ferrous sulfate 325 mg (65 mg 325 mg PO DAILY 06/16/23 Unknown History iron) tablet furosemide 20 mg tablet (Lasix) 20 mg PO DAILY 06/16/23 Unknown History loperamide 2 mg capsule 2 mg PO Q6H PRN 06/16/23 Unknown History polyethylene glycol 3350 17 4 g PO DAILY 06/16/23 Unknown History gram/dose oral powder (Miralax) aspirin 81 mg tablet,delayed See Rx Instructions .Route 09/22/23 Unknown Rx release .COMPLEX #90 TABLETS potassium chloride 20 mEq 20 meq PO DAILY 02/14/24 Unknown History tablet,extended release(part/cryst) Allergy/AdvReac Type Severity Reaction Status Date / Time No Known Allergies Allergy Verified 02/14/24 10:17 Family History Mother CAD (coronary artery disease) Colon cancer Diabetes Brother CAD (coronary artery disease) Hypertension Surgical History 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) History of cardioversion (08/25/21) History of left heart catheterization (12/12/14) History of appendectomy Hx of cholecystectomy H/O coronary artery bypass surgery (09/20/97) Social History household members: spouse Smoking Status: Never smoker alcohol intake: never substance use type: does not use caffeine: Yes Type: coffee Number of servings: 1 what type of physical activity do you participate in: none seatbelt use: always do you feel safe at home: Yes ROS ROS ED ROS Narrative Generalized weakness. Review of Systems ROS Unobtainable: Denies due to encephalopathy Constitutional Constitutional ED: Reports chills; Denies fever(s) Eyes Eyes: Denies blurry vision ENT ENT ED: Denies ear pain Cardiovascular Cardiovascular: Denies chest pain Respiratory/Chest Respiratory/Chest: Reports dyspnea; Denies cough Gastrointestinal Gastrointestinal: Denies abdominal pain Genitourinary Genitourinary ED: Denies dysuria or hematuria Musculoskeletal Musculoskeletal: Denies arthralgias Integumentary Denies abscess Neurologic Neurologic: Denies headache(s) or paresthesias Psychiatric Psychiatric: Denies anxiety Endocrine Endocrinology: Denies cold intolerance Hematologic/Lymphatic Hematologic/Lymphatic: Reports none Allergic/Immunologic Allergic/Immunologic ED: Denies mouth swelling, tongue swelling or urticaria EXAM Physical Exam Narrative Exam Narrative: Well-appearing 88-year-old male. Family at bedside. Vital signs are stable afebrile. Pulse ox 95% on room air no hypoxia. He is in no distress. H EENT exam pupils round react to light. Moist weeks membranes. No facial droop. No trauma. Neck nontender. Lungs clear to auscultation bilaterally. Heart regular rhythm rate about 100 no murmur. Chest wall and ribs nontender. Abdomen soft nontender. No peritoneal signs. No distention. Moving all 4 extremities. 5 out of 5 balloon artist strength. Dorsi plantarflexion intact. Nontender. No edema. Back nontender. Neurologically patient is awake and alert with no focal motor deficits. Const Vital Signs: 02/14/24 10:14 02/14/24 10:24 02/14/24 10:35 Temperature 97.6 F L 98.5 F Temperature Source Temporal Oral Pulse Rate 108 H Respiratory Rate 16 Respiratory Effort Normal Respiratory Depth Normal Respiratory Pattern Normal Blood Pressure 130/67 H Blood Pressure Mean 88 Pulse Ox 95 Oxygen Delivery Method Room Air Room Air Positive well nourished and well developed; Negative for obese, cachectic, contractures or unkempt General Appearance ED: well developed and NAD; Negative for unkempt, cachectic, contractures, cyanotic, diaphoretic, pallor or other Nutritional Appearance: Negative for cachectic or obese HEENT Reports moist mucous membranes; Denies dry mucous membranes Negative for trauma or tenderness Mouth ED: No dry mucous membranes Mouth: No dry mucous membranes Eyes PERRL and EOMs intact bilaterally General Eye ED: Negative for pale conjunctiva, scleral icterus or other Neck no lymphadenopathy, supple and no JVD General: Negative for tenderness Lymph Lymphatic: Negative for other Chest Wall inspection of chest normal and palpation of chest normal Chest: Negative for other Resp normal respiratory effort and clear to auscultation bilaterally Effort and Inspection: Negative for retractions Auscultation: Negative for rales, rhonchi, wheezes or diminished lung sounds Cardio regular rate, regular rhythm, S1 normal heart sound, S2 normal heart sound and no murmurs GI normal to inspection, nondistended, normoactive bowel sounds, non-tender, non-distended and no masses Inspection: Negative for abdominal distention Palpation: soft; Negative for tender, guarding or rebound tenderness present Back/Spine no CVA tenderness General Back: Negative for CVA tenderness Cervical Spine: Negative for cervical spine tenderness Thoracic Spine / Upper Back: Negative for thoracic spinal tenderness or paraspinal muscle tenderness Lumbar Spine / Lower Back: Negative for lumbar spinal tenderness Extremity normal to inspection General Extremety ED: Negative for edema or tenderness General Extremity: Negative for edema Neuro oriented x3 and CN's II-XII intact bilaterally Sensorium / Orientation: alert; Negative for orientation impaired, lethargic or stuporous Motor Exam: strength 5/5 throughout Psych mental status grossly normal Appearance: Negative for unkempt or other Attitude: No agitated Mood & Affect: Negative for depressed, anxious or tearful Skin no rashes or lesions noted and no wounds General Skin Exam: elasticity normal; Negative for jaundice or pallor Lesions: No lesion noted Rashes: No rashes noted Trauma: Negative for abrasion Wounds: Negative for wounds noted MDM MDM MDM Narrative Medical decision making narrative: 88-year-old male from extended-care facility with generalized weakness. Mild shortness of breath. Exam is benign. Undergo a cardiac/infectious workup. Reportedly had a recent urinalysis done at the alf that was negative. Repeat exam unchanged. Repeat temperature 98.2. I went over the test results with patient and family. They are comfortable with him being discharged back to the extended care facility. History & Record Review Discussion w/independent historian: Patient and Family Additional record(s) reviewed:: Prior inpatient record, Prior outpatient record, Prior ED visit and Prior labs Lab Data Attestation: I reviewed the patient's lab results. Lab results narrative: CBC shows a white count 7.4. H&H 13 and 40. Platelets 114. Electrolytes show a gap of 7. BUN of 30 creatinine 1.48 Liver enzymes unremarkable. UA negative. No white or red cells. No nitrites. Labs: Laboratory Results - last 24 hr 02/14/24 02/14/24 10:25 10:53 WBC 11.4 H RBC 4.22 L Hgb 13.0 Hct 40.5 MCV 96.0 H MCH 30.8 MCHC 32.1 RDW Std Deviation 52.5 H RDW Coeff of Radha 15.1 H Plt Count 114 L MPV 9.0 Immature Gran % (Auto) 0.400 Neut % (Auto) 92.0 H Lymph % (Auto) 3.6 L [place] % (Auto) 3.7 Eos % (Auto) 0.1 Baso % (Auto) 0.2 Absolute Neuts (auto) 10.5 H Absolute Lymphs (auto) 0.41 L Nucleated RBC % 0 Sodium 143 Potassium 4.3 Chloride 112 H Carbon Dioxide 24.0 Anion Gap 7 BUN 30 H Creatinine 1.48 H Est GFR (MDRD) Af Amer 58 L Est GFR (MDRD) Non-Af 48 L BUN/Creatinine Ratio 20.3 H Glucose 145 H Calcium 8.9 Total Bilirubin 1.90 H AST 22 ALT 25 Alkaline Phosphatase 122 H Troponin I High Sens 20 Total Protein 6.5 Albumin 3.5 Globulin 3.0 Albumin/Globulin Ratio 1.2 Urine Color Yellow Urine Clarity Clear Urine pH 6.0 Ur Specific [place] 1.015 Urine Protein 15 H Urine Glucose (UA) Normal Urine Ketones Negative Urine Occult Blood Negative Urine Nitrite Negative Urine Bilirubin Negative Urine Urobilinogen 4 H Ur Leukocyte Esterase Negative Urine RBC 0 SEEN Urine WBC 0 SEEN Ur Squamous Epith Cells 0 SEEN Urine Bacteria 0 SEEN Urine Mucus 0 SEEN Radiography Chest X-Ray - ED: 1 View, Read by ED Physician, Normal, Mediastinum, Bony Structures, Chronic Changes, Cardiomegaly and CHF Diagnostic Testing: Clinical Impression(s) from Imaging Studies Chest X-Ray 02/14/24 10:59 IMPRESSION: Mild cardiomegaly with findings suggestive of CHF. Electronically Signed: Domo Appiah MD at 11:16 EDT , Chest x-ray, portable, single view shows prior sternotomy with sternal wires. Borderline cardiomegaly and mild pulmonary edema. Interpreted both by myself and radiologist. Rhythm Strip Rhythm Strip: paced Rate: 84 Ectopy: None EKG Initial EKG: Attestation: I personally reviewed and interpreted this EKG as follows: Interpretation: Paced Comments: . Paced rhythm rate 84. Discharge Plan Triage Chief Complaint: Shortness of Breath ED Provider: Nilo Zarate Dx/Rx/DC Orders Clinical Impression: Generalized weakness Instructions: ED Weakness (Uncertain Cause) Prescriptions: No Action acetaminophen [Tylenol] 325 mg tablet 325 mg PO Q4H PRN loperamide 2 mg capsule 2 mg PO Q6H PRN ferrous sulfate 325 mg (65 mg iron) tablet 325 mg PO DAILY furosemide [Lasix] 20 mg tablet 20 mg PO DAILY polyethylene glycol 3350 [Miralax] 17 gram/dose powder 4 g PO DAILY dutasteride 0.5 mg capsule 0.5 mg PO DAILY Saccharomyces boulardii [Daily Probiotic (S. boulardii)] 250 mg capsule 10,000 mmu cells PO BID lovastatin 40 mg tablet 40 mg PO QHS Qty: 30 3RF potassium chloride 20 mEq tablet,ER particles/crystals 20 meq PO DAILY aspirin 81 mg tablet,delayed release (DR/EC) See Rx Instructions .ROUTE .COMPLEX Qty: 90 3RF Dose Instruction: take 1 tablet by mouth once daily Rx Instructions: take 1 tablet by mouth once daily Primary Care Provider: Enrique Kennedy Referrals: Enrique Kennedy MD [Primary Care Provider] - 3-5 Days if not improving Activity Restrictions/Additional Instructions: Plenty of fluids and rest. Follow-up with your doctor if not improving. Return if feeling worse. Your labs today were basically unremarkable. Print Language: Barbadian Disposition Disposition: Home, Self Care
[2024-02-14 10:45] LABS: Absolute Lymphocyte Count 0.41 X10^3/uL (0.83-4.51); Absolute Neutrophil Count 10.5 X10^3/uL (2.0-7.7); Basophil# 0.02 X10^3/uL; Basophil% 0.2 % (0-1); Eosinophil# 0.01 X10^3/uL; Eosinophils% 0.1 % (0-5); Hematocrit 40.5 % (40-54); Lymphocyte # 0.41 X10^3/ul (0.83-4.51); Lymphocyte % 3.6 % (19-41); Mean Corp Hgb Conc 32.1 g/dL (32-36); Mean Corpuscular Hgb 30.8 pg (27.0-32.0); Monocyte# 0.42 X10^3/uL; Monocyte% 3.7 % (0-10); NRBC Flagged by Analyzer 0 % (0-5); POSITIVE DIFFERENTIAL YES; Platelet Count 114 K/mm3 (150-450); RBC Distribution Width CV 15.1 % (11.6-14.6); RBC Distribution Width SD 52.5 fl (35.1-43.9); Red Blood Count 4.22 M/mm3 (4.6-6.2); White Blood Count 11.4 K/mm3 (4.4-11.0)
[2024-02-14 10:58] LABS: Bacteria 0 SEEN /hpf (None Seen); Mucous, Urine 0 SEEN /hpf (<or=2+); Red Blood Cells-Urine 0 SEEN /hpf (0-5); Squamous Epithelial Cells - UA 0 SEEN /hpf (0-5); White Blood Cells 0 SEEN /hpf (0-5)
--- NOTE | 2024-02-14 10:59 | RAD_ITS ---
STUDY: X-RAY CHEST REASON FOR EXAM: Male, 88 years old. Weakness TECHNIQUE: Single AP portable view of the chest. COMPARISON: Comparison is made with prior study dated May 10, 2023. FINDINGS: EKG electrodes are seen. Stable elevation of the right hemidiaphragm with evidence of vascular congestion and CHF. There is no demonstrated pleural abnormality. Sternal cerclage wires and vascular clips are present from a prior sternotomy and coronary artery bypass graft procedure (CABG). Mild cardiomegaly. Normal mediastinum and alaina. Normal visualized pulmonary arteries. There is atherosclerotic tortuosity of the aortic arch and descending thoracic aorta. Normal visualized thoracic spine. Normal visualized ribs, clavicles, and shoulders. There is no demonstrated abnormality of the visualized soft tissue structures of the upper abdomen. RAD/Chest 1 View (Portable) IMPRESSION: Mild cardiomegaly with findings suggestive of CHF. Electronically Signed: Domo Appiah MD at 11:16 EDT ,
[2024-02-14 11:03] LABS: Color, Urine Yellow (Yellow); Glucose, Dipstick Normal (Normal); Ketone-Dipstick Negative (Negative); Leukocyte Esterase-Dipstick Negative /ul (Negative); Nitrite-Dipstick Negative (Negative); Occult Blood-Urine Negative /ul (Negative); Protein-Dipstick 15 mg/dl (Negative); Specific Gravity, Urine 1.015 (1.002-1.030); Urine Bilirubin Dipstick Negative (Negative); Urine Clarity Clear (Clear); Urine Urobilinogen 4 mg/dl (Normal)
[2024-02-14 11:03] LABS: ALB/GLOB Ratio 1.2 RATIO (0.9-2.4); AST(SGOT) 22 U/L (15-37); Alanine Aminotransfer ALT/SGPT 25 U/L (16-61); Albumin, Serum 3.5 g/dL (3.2-5.0); Alkaline Phosphatase 122 U/L (45-117); Anion Gap 7 (5-15); BUN 30 mg/dL (7-18); BUN/Creat Ratio 20.3 RATIO (10-20); Calcium,Total 8.9 mg/dL (8.5-10.1); Chloride 112 mmol/L (98-107); Creatinine, Serum 1.48 mg/dL (0.70-1.30); EST Glomerular Filtration Rate 48 mL/min (>60); Est Glom Filt Rate - Afr Amer 58 mL/min (>60); Glucose 145 mg/dL (74-106); Potassium 4.3 mmol/L (3.5-5.1); Protein, Total 6.5 g/dL (6.4-8.2); Sodium Level 143 mmol/L (136-145); Troponin-I HS 20 pg/mL (3.0-78.0)
[2024-02-14 12:06] VITALS: BP 109/62; PULSE 71; RESP 26; TEMP 36.8; O2SAT 95
== END 2024-02-14 12:20 | disposition home or self-care (01) ==
PROVIDERS: Emergency Provider Emergency Medicine; PCP Family Medicine; Visit Provider Emergency Medicine
DX: R53.1 Weakness (principal); I13.0 Hypertensive heart and chronic kidney disease with heart failure and stage 1 through stage 4 chronic kidney disease, or unspecified chronic kidney disease; I50.32 Chronic diastolic (congestive) heart failure; N18.32 Chronic kidney disease, stage 3b; E78.5 Hyperlipidemia, unspecified; I25.10 Atherosclerotic heart disease of native coronary artery without angina pectoris; Z95.0 Presence of cardiac pacemaker; R06.02 Shortness of breath
CPT/HCPCS: 71045; 80053; 81001; 84484; 85025; 93005; 99284; A4216